=== PATIENT | female | born 1935 | race Caucasian/White ===

== ENCOUNTER 2024-01-08 09:54 | Outpatient (OUT) | payer MEDICARE, SELFPAY ==
--- NOTE | 2024-01-08 09:59 | VEIN_ITS ---
Patient Name: YUMIKO FERNANDEZ MR#: [id number] : 1935 Exam Date: 01/08/2024 Ordering Doctor: RACHELL LABOY RADIOLOGY REPORT PROCEDURE: [facility] FACILITY EST COMPREHENSIVE VEIN CENTER - OFFICE VISIT INITIAL COMPARISON: None. PROGRESS NOTES: [age] year old female who presents with a 20 year history of dilated bulging veins, burning sensation, heaviness, aching, leg swelling with new onset recurring ulcer. The patient's left leg symptoms are worse than the right. There has been a progression of symptoms over time. This increases with prolonged dependency. The patient describes an improvement with rest, elevation, exercise, support stockings, and medication. The patient denies any signs and symptoms to suggest arterial ischemia. The patient describes a family history varicose veins on maternal sign. The patient has drinking and smoking history of colon occasional alcohol consumption; former smoker. Patient has a past medical history significant for : Extensive, but non significantly contributory to current issue. The patient denies a history of deep venous thrombus or pulmonary embolus. See separate history and physical for medication list. No prior treatment for varicose or spider veins. Current use of compression stockings. After review of nurse notes, history and physical exam I discussed at length the pathophysiology of venous hypertension and possible treatments, therapies and strategies available. We discussed at length the importance of elevating the lower extremities above the level of the heart, increased physical activity and compression stocking use. Ultrasound venous reflux study performed today was discussed at length with the patient. The report demonstrates abnormally dilated and incompetent great saphenous veins bilaterally with numerous dilated branch saphenous varicosities. Abnormally dilated incompetent abattoir supervisor vein within distal medial calf bilaterally; this is within the region of the wound of the posterior left calf. PHYSICAL EXAM: The right leg demonstrates multiple large varicosities, numerous spider veins, no ulceration, mild edema, distal lower extremity skin discoloration. The left leg demonstrates several varicosities, numerous spider veins, posterior calf nonhealing ulceration, mild edema, distal lower extremity skin discoloration. Both thighs, legs and feet were symmetrically warm to the touch. Good posterior tibial and dorsalis pedis pulses were present bilaterally. VEIN/[facility] Facility EST Comprehensive IMPRESSION: 1. Bilateral lower extremity venous insufficiency 2. Bilateral lower extremity varicose veins 3. Mild bilateral lower extremity subcutaneous edema 4. No flow significant arterial disease 5. CEAP: C6 EC, AD, [place] PLAN: 1. Continued use of compression stockings 2. Elevated legs and increased physical activity symptomatic relief 3. Endovenous laser ablation of left great saphenous vein, right great saphenous vein, distal left lower extremity abattoir supervisor vein. 4. Microfoam chemical ablation of incompetent branch saphenous varicosities bilaterally. 5. Sclerotherapy of reticular and spider veins as needed. Nurse notes, history and physical were reviewed and confirmed, see attached forms. The nurse was present throughout the physical exam and consultation Dictated by: Romeo Pabon M.D. on 01/08/2024 at 11:52 Approved by: Romeo Pabon M.D. on 01/08/2024 at 11:59
--- NOTE | 2024-01-08 10:12 | VEIN_ITS ---
Patient Name: YUMIKO FERNANDEZ MR#: [id number] : 1935 Exam Date: 01/08/2024 Ordering Doctor: RACHELL LABOY RADIOLOGY REPORT PROCEDURE: VC EXT VENOUS REFLUX MARIVEL LMTD COMPARISON: None. INDICATIONS: Pain due to varicose veins of bilateral legs I83.813 TECHNIQUE: Duplex imaging of the lower extremity to assess the deep and superficial venous system for the presence of deep or superficial venous incompetence and to document the location and severity of disease. The study includes evaluation of the great saphenous vein (GSV), anterior accessory saphenous vein (AASV) and small saphenous vein (SSV). Patient scanned in reverse Trendelenburg and standing. FINDINGS: RIGHT LOWER EXTREMITY: Saphenofemoral Junction Reflux: Yes 9.7mm 3.4 sec GSV: Diam (mm) Reflux/ Time (sec) Proximal Thigh 6.7 Yes 3.4 Mid Thigh 7.7 Yes 3.7 Distal Thigh 6.4 Yes 3.6 Prox Calf 6.6 Yes 3.4 Mid Calf 4.9 Yes 2.1 Saphenopopliteal Junction Reflux: 1.9mm No SSV: Proximal Calf 2.2 Yes 0.7 Mid Calf 2.0 No AASV: Proximal Thigh 4.5 No Mid Thigh 2.3 No Distal Thigh Thrombi: No acute or chronic thrombus visualized Compressibility: Normal Flow: Normal Preforator: Dist/med calf 5.6mm with 1.2s reflux. Tech Note: Incompetent GSV. Patent varicose vein dist/med calf 5.6mm with 1.2s reflux. Patent varicose vein mid/med calf 4.6mm with 0.7s reflux. Patent varicose vein dist/med thigh 9.9mm with 1.4s reflux. Patent varicose vein mid/med thigh 6.5mm with 2.5s reflux. LEFT LOWER EXTREMITY: Saphenofemoral Junction Reflux: Yes 8.1 mm 2.4 sec GSV: Diam (mm) Reflux/Time (sec) Proximal Thigh 6.3 Yes 2.0 Mid Thigh 4.0 Yes 1.6 Distal Thigh 4.4 Yes 2.0 Prox Calf 4.9 Yes 1.2 Mid Calf 2.9 No Saphenopopliteal Junction Relux: 1.9 mm Yes 0.6 SSV: Proximal Calf 1.3 No Mid Calf 1.2 No AASV: Proximal Thigh Mid Thigh Distal Thigh Thrombi: No acute or chronic thrombus visualized Compressibility: Normal Flow: Normal Poultry Boner: Dist/med calf 6.3mm with 1.0s reflux. Tech Note: Incompetent GSV. Gastro veins are dialated and demonstrate slow flow throughout. No patent varicose veins visualized. CONCLUSION: 1. Abnormally dilated and incompetent great saphenous veins bilaterally. 2. Multiple dilated and incompetent branch saphenous varicosities bilaterally. 3. Abnormally dilated and incompetent music store manager veins bilaterally. Dictated by: Romeo Pabon M.D. on 01/08/2024 at 11:29 Approved by: Romeo Pabon M.D. on 01/08/2024 at 11:38
== END 2024-01-08 09:55 | disposition home or self-care (01) ==
PROVIDERS: PCP Nurse Practitioner Adult Health; Visit Provider Nurse Practitioner Adult Health
DX: I83.813 Varicose veins of bilateral lower extremities with pain (principal)
CPT/HCPCS: 93970; G0463

== ENCOUNTER 2024-01-15 13:40 | Outpatient (OUT) | payer MEDICARE, SELFPAY ==
[2024-01-15 14:05] LABS: Estimated GFR (African America >60 (>=60); Estimated GFR (Non-African Ame 54 (>=60)
== END 2024-01-15 13:41 | disposition home or self-care (01) ==
LOC: LAB 13:40
PROVIDERS: PCP Radiology Diagnostic Radiology; Visit Provider Radiology Diagnostic Radiology
DX: I70.223 Atherosclerosis of native arteries of extremities with rest pain, bilateral legs (principal)
CPT/HCPCS: 36415; 82565

== ENCOUNTER 2024-01-20 13:27 | Outpatient (OUT) | payer MEDICARE, SELFPAY ==
--- NOTE | 2024-01-20 13:32 | CT_ITS ---
[address] [address] Patient Name: YUMIKO FERNANDEZ MRN: [id number] date: 1935 Sex: F Assigned Patient Location: CT Current Patient Location: Accession/Order Number: [id number] Exam Date: 01/20/2024 13:38 Report Date: 01/21/2024 05:48 At the request of: ARIELLA FLETCHER Procedure: CT angio abd aorta runoff EXAMINATION: CT angio abd aorta runoff HISTORY: Atherosclerosis Of [place] Arteries Of Extremities With Pain ; May Thurner syndrome? COMPARISON: CT chest 05/28/2022 TECHNIQUE: After obtaining the patient's consent, CT images of the abdomen, pelvis, and lower extremities were obtained without and with non-ionic intravenous contrast material. Multi-planar reformatted/3-D images were created to optimize visualization of vascular anatomy. Dose reduction techniques were achieved by using automated exposure control and/or adjustment of mA and/or kV according to patient size and/or use of iterative reconstruction technique. FINDINGS: AORTA: Moderate atherosclerotic disease of aorta and major branches. No dissection or aneurysm. ILIAC: Mild-moderate atherosclerotic disease of common iliac arteries, with relative sparing of external iliac arteries. RIGHT LEG: No compression or appreciable narrowing of iliac veins. Mild atherosclerotic disease of common femoral artery through calf arteries with scattered mild plaque. LEFT LEG: No compression or appreciable narrowing of the iliac veins. Mild atherosclerotic disease of common femoral artery through calf arteries with scattered mild plaque. LUNG BASES: Enlarged right atrium at least 11.0 cm in diameter. LIVER: No enlargement, atrophy, abnormal density, or significant focal lesion. BILIARY: No visible dilatation or calcification. PANCREAS: No lesion, fluid collection, ductal dilatation, or atrophy. SPLEEN: No enlargement or focal lesion. ADRENALS: No mass or enlargement. KIDNEYS: No mass, obstruction, or calcification. BOWEL/MESENTERY: No visible mass, obstruction, or bowel wall thickening. RETROPERITONEUM: No mass or adenopathy. PELVIC NODES: No adenopathy. URINARY BLADDER: No visible focal wall thickening, lesion, or calculus. PELVIC ORGANS: No visible mass. Pelvic organs appropriate for patient age. ABDOMINAL WALL: No mass or hernia. BONES: Marked degenerative disc disease L3-L4 through L5-S1. No bony lesion or fracture. OTHER: CT/CT angio abd aorta runoff IMPRESSION: 1. Moderate atherosclerotic disease of aorta and abdominal branches. 2. Mild atherosclerotic disease of lower extremities bilaterally. No occlusion or significant narrowing. 3. No compression or appreciable narrowing of the iliac veins bilaterally to suggest May Thurner syndrome. 4. Cardiomegaly with marked enlargement of right atrium. Electronically authenticated by: ARIELLA FLETCHER Date: 01/21/2024 05:48
== END 2024-01-20 13:28 | disposition home or self-care (01) ==
LOC: CT 13:27
PROVIDERS: PCP Radiology Diagnostic Radiology; Visit Provider Radiology Diagnostic Radiology
DX: I70.223 Atherosclerosis of native arteries of extremities with rest pain, bilateral legs (principal); I51.7 Cardiomegaly
CPT/HCPCS: 75635; Q9967

== ENCOUNTER 2024-01-28 12:58 | Outpatient (OUT) | payer MEDICARE, SELFPAY ==
--- NOTE | 2024-01-28 13:01 | VEIN_ITS ---
[address] [address] Patient Name: YUMIKO FERNANDEZ MRN: [id number] date: 1935 Sex: F Assigned Patient Location: Current Patient Location: Accession/Order Number: [id number] Exam Date: 01/28/2024 13:05 Report Date: 01/28/2024 14:38 At the request of: JONAS GOODWIN Procedure: VC Endovenous Ablation 1VeinLT EXAMINATION: VC Endovenous Ablation 1Vein left great saphenous vein HISTORY: I83.813 Painful Varicose veins COMPARISON: No relevant comparison available. TECHNIQUE: The risks and benefits of the procedure had been previously discussed, and were rediscussed at length. Informed written consent was obtained. Dalila Peterson and Cecilio Mendoza assisted. Time out procedure was performed. The left lower extremity was prepared and draped in the usual sterile fashion to allow knee flexion in the sterile field. Duplex ultrasound probe was draped in a sterile cover, sterile transmission gel was used. Venous mapping was performed with the areas of dilation and large tributaries marked. The total length was 45 cm from the entry mid lower leg to 3 cm below the saphenofemoral junction. The diameter of the greater saphenous vein ranged from 4-7 mm. A 30 gauge needle and 1% buffered lidocaine was used to anesthetize the entry site. A 4 mm incision was made with a scalpel and the saphenous vein was entered percutaneously under direct ultrasound guidance with a micropuncture set, a single stick was successful in gaining access. A micro-guide wire was inserted and the needle removed. A micro-set including a dilator was inserted over the microwire and the needle and dilator were removed. A 0.018 guide wire was inserted through the micro-set and threaded through the saphenous vein to the saphenofemoral junction. The dilator was removed and an introducer sheath was inserted over the wire until the end of the sheath entered the saphenofemoral junction. The dilator and wire were removed and the 600 micron fiber was introduced and placed and positioned so that it extended beyond the sheath and was 3 cm peripheral to the saphenofemoral femoral junction. Final position of the fiber was determined by ultrasound guidance and duplex imaging. Tumescent anesthetic was delivered by ultrasound guidance. 275 cc of fluid was delivered along the entire course of the saphenous vein. The solution consisted of 1000 cc of normal saline with 40 mL of 1% lidocaine and 20 mL of sodium bicarbonate. A final positioning check was made. The energy source was turned on by means of the foot pedal and the fiber and sheath were withdrawn. The total number of Joules delivered was 2320. The laser was active for 290 seconds under continuous pulse, average laser use of 8 J. Laser start time 2:01 PM 01/28/2024 . Laser stop time 2:06 PM 01/28/2024 . A duplex ultrasound revealed compressibility and flow at the saphenofemoral junction immediately after the procedure. Hemostasis at the access site was achieved. The skin incision of the saphenous vein was closed with a 4 x 4. A compression stocking was applied. Postop instructions were given. A follow up appointment was recommended and scheduled. The patient tolerated the procedure well and was discharged in good condition . VEIN/VC Endovenous Ablation 1VeinLT IMPRESSION: Technically successful endovenous laser ablation of the left great saphenous vein Electronically authenticated by: JONAS GOODWIN Date: 01/28/2024 14:38
[2024-01-28] MEDS: LIDOCAINE HCL 1% 100 MG/10 ML MDV INJ (13:02)
[2024-01-28] MEDS: 0.9 % SODIUM CHLORIDE 500 ML, LIDOCAINE HCL 20 ML, SODIUM BICARBONATE 10 MEQ INJ (13:03)
== END 2024-01-28 12:59 | disposition home or self-care (01) ==
LOC: VC 12:58
PROVIDERS: PCP Radiology Diagnostic Radiology; Visit Provider Radiology Diagnostic Radiology
DX: I83.813 Varicose veins of bilateral lower extremities with pain (principal)
CPT/HCPCS: 36478

== ENCOUNTER 2024-02-03 14:17 | Outpatient (OUT) | payer MEDICARE, SELFPAY ==
--- NOTE | 2024-02-03 14:21 | VEIN_ITS ---
Patient Name: YUMIKO FERNANDEZ MR#: [id number] : 1935 Exam Date: 02/03/2024 Ordering Doctor: DR JONAS GOODWIN M.D. RADIOLOGY REPORT PROCEDURE: FACILITY EST LMTD VEIN CENTER - OFFICE VISIT FOLLOW UP COMPARISON: None. PROGRESS NOTES: The patient reports improvement in leg symptoms. There has been interval reduction in varicosities. The patient has followed our recommendations to walk 20-30 minutes once or twice per day since the procedure. Physical exam demonstrates decrease in varicosities of the leg. Persistent varicose veins are identified along the legs bilaterally. Persistent wound lower left leg. Review of the ultrasound performed the same day demonstrates occlusive thrombus extending throughout the treated vein(s), see separate report, consistent with a successful ablation. No thrombus extending into or beyond the saphenofemoral junction. The patient expressed a desire to proceed with treatment of remaining incompetent varicosities. The patient was informed that treatment was a process and would require several procedures/sessions. VEIN/[facility] EST TD IMPRESSION: 1. Successful ablation of the left great saphenous vein(s). 2. Persistent varicose veins and lower extremity symptoms. PLAN: Endovenous laser ablation of lower left leg incompetent and abnormally dilated network architect vein near nonhealing wound. Nurse notes, history and physical were reviewed and confirmed, see attached forms. The nurse was present throughout the physical exam and consultation Dictated by: Romeo Pabon M.D. on 02/03/2024 at 15:29 Approved by: Romeo Pabon M.D. on 02/03/2024 at 15:30
--- NOTE | 2024-02-03 14:21 | VEIN_ITS ---
Patient Name: YUMIKO FERNANDEZ MR#: [id number] : 1935 Exam Date: 02/03/2024 Ordering Doctor: DR JONAS GOODWIN M.D. RADIOLOGY REPORT PROCEDURE: VC EXT VENOUS LT LIMITED COMPARISON: None. INDICATIONS: Phlebitis of superficial veins of lt lower extremity I80.02 TECHNIQUE: Lower extremity higgins scale and Duplex Doppler evaluation of the deep venous system from the inguinal ligament through the calf veins. FINDINGS: REGION: Left lower extremity. THROMBI: Negative for DVT. Heat induced thrombus visualized 1.9 cm from the SFJ. The heat induced thrombus extends from groin to mid calf. COMPRESSIBILITY: Non-compressible segments corresponding to thrombus FLOW: Areas of no flow corresponding to thrombus OTHER: CONCLUSION: 1. Successful post ablation occlusion of left great saphenous vein. Dictated by: Romeo Pabon M.D. on 02/03/2024 at 15:28 Approved by: Romeo Pabon M.D. on 02/03/2024 at 15:29
== END 2024-02-03 14:18 | disposition home or self-care (01) ==
LOC: VC 14:19
PROVIDERS: PCP Radiology Diagnostic Radiology; Visit Provider Radiology Diagnostic Radiology
DX: I80.02 Phlebitis and thrombophlebitis of superficial vessels of left lower extremity (principal)
CPT/HCPCS: 93971; G0463

== ENCOUNTER 2024-02-17 13:13 | Outpatient (OUT) | payer MEDICARE, SELFPAY ==
[2024-02-17] MEDS: LIDOCAINE HCL 20 ML, SODIUM BICARBONATE 2 MEQ INJ (13:16)
--- NOTE | 2024-02-17 13:17 | VEIN_ITS ---
[address] [address] Patient Name: YUMIKO FERNANDEZ MRN: [id number] date: 1935 Sex: F Assigned Patient Location: Current Patient Location: Accession/Order Number: [id number] Exam Date: 02/17/2024 13:18 Report Date: 02/17/2024 15:19 At the request of: JONAS GOODWIN Procedure: VC Endovenous Perf Ablation LT EXAMINATION: VC Endovenous Perf Ablation LT COMPARISON: INDICATIONS: I83.813 Painful varicose veins OPERATIVE REPORT: Diagnosis: Superficial venous reflux, incompetent perforating veins Procedure: Endovenous laser ablation of the left washroom cleaner(s) Procedure: The patient was positioned supine on the table and the leg was prepped and draped to allow for visualization during venous access. A sterile cover was draped over a 16 mhz ultrasound probe. Venous mapping was performed prior to the procedure noting location and size of vessel(s). Special Education Resource Teacher vein 1: Medial lower leg. The diameter of the vein ranged from 6.3 mm's below the muscular fascia to 6.3 mm's at the entry point. Using a 30 gauge needle the entry site was anesthetized with 1 cc of 1% buffered lidocaine. Access was gained percutaneously, with a 21-gauge needle, into the washroom cleaner vein under ultrasound guidance. The needle was advanced into the desired position and the pre-measured 400-micron fiber was then inserted into the needle and locked in place. The position of the fiber was imaged with ultrasound guidance. The fiber tip was visualized to be greater than 10 mm from the deep vessel. An anesthetic solution of 4 cc 1% buffered lidocaine was delivered along the course of the vein under ultrasound guidance using a syringe. A final positioning check of the laser fiber tip was performed. The laser was activated by means of a foot-pedal and the fiber and needle were withdrawn together in accordance to the desired joules per treatment area/spot weld. 3 areas/spot welds were performed, and the total number of joules delivered was 178. The total time of energy delivery was 22 seconds. A duplex ultrasound revealed compressibility and flow of the deep system immediately after the procedure. Hemostasis of the access site was achieved and dressed. A 20-30 mm compression stocking over coban was placed on the treated leg. Post-Op instructions were given, and a follow-up appointment was made. CONCLUSION: 1. Technically successful endovenous laser ablation of medial lower left leg single washroom cleaner vein Electronically authenticated by: ARIELLA FLETCHER Date: 02/17/2024 15:19
== END 2024-02-17 13:14 | disposition home or self-care (01) ==
LOC: VC 13:13
PROVIDERS: PCP Radiology Diagnostic Radiology; Visit Provider Radiology Diagnostic Radiology
DX: I83.813 Varicose veins of bilateral lower extremities with pain (principal)
CPT/HCPCS: 36478

== ENCOUNTER 2024-03-02 13:03 | Outpatient (OUT) | payer MEDICARE, SELFPAY ==
--- NOTE | 2024-03-02 13:05 | VEIN_ITS ---
Patient Name: YUMIKO FERNANDEZ MR#: [id number] : 1935 Exam Date: 03/02/2024 Ordering Doctor: DR JONAS GOODWIN M.D. RADIOLOGY REPORT PROCEDURE: FACILITY EST LMTD VEIN CENTER - OFFICE VISIT FOLLOW UP COMPARISON: VC EXT VENOUS LT LIMITED, 03/02/2024. VC FACILITY EST LMTD, 02/03/2024. PROGRESS NOTES: The patient reports improvement in leg symptoms. There has been interval reduction in varicosities. The patient has followed our recommendations to walk 20-30 minutes once or twice per day since the procedure. Physical exam demonstrates decrease in varicosities of the leg. Persistent varicosities are identified along the legs bilaterally. Review of the ultrasound performed the same day demonstrates occlusive thrombus extending throughout the treated vein(s), see separate report, consistent with a successful ablation. No thrombus extending into or beyond the saphenofemoral junction. The patient expressed a desire to proceed with treatment of remaining incompetent varicosities. The patient was informed that treatment was a process and would require several procedures/sessions. VEIN/[facility] EST TD IMPRESSION: 1. Successful ablation of the treated lower left leg product support technician vein. 2. Persistent varicose veins and lower extremity symptoms. PLAN: Endovenous laser ablation of right great saphenous vein. Nurse notes, history and physical were reviewed and confirmed, see attached forms. The nurse was present throughout the physical exam and consultation Dictated by: Romeo Pabon M.D. on 03/02/2024 at 13:57 Approved by: Romeo Pabon M.D. on 03/02/2024 at 13:59
--- NOTE | 2024-03-02 13:05 | VEIN_ITS ---
Patient Name: YUMIKO FERNANDEZ MR#: [id number] : 1935 Exam Date: 03/02/2024 Ordering Doctor: DR JONAS GOODWIN M.D. RADIOLOGY REPORT PROCEDURE: VC EXT VENOUS LT LIMITED COMPARISON: VC EXT VENOUS LT LIMITED, 02/03/2024. INDICATIONS: I80.02 Phlebitis of superficial veins of lt lower extremity TECHNIQUE: Lower extremity higgins scale and Duplex Doppler evaluation of the deep venous system from the inguinal ligament through the calf veins. FINDINGS: REGION: Right lower extremity. THROMBI: Negative for DVT. Heat induced thrombus visualized at mid/medial referral coordinator calf. COMPRESSIBILITY: Non-compressible segments corresponding to thrombus FLOW: Areas of no flow corresponding to thrombus OTHER: CONCLUSION: 1. Successful post ablation occlusion of lower left leg referral coordinator vein. Dictated by: Romeo Pabon M.D. on 03/02/2024 at 13:57 Approved by: Romeo Pabon M.D. on 03/02/2024 at 13:57
== END 2024-03-02 13:04 | disposition home or self-care (01) ==
LOC: VC 13:03
PROVIDERS: PCP Radiology Diagnostic Radiology; Visit Provider Radiology Diagnostic Radiology
DX: I80.02 Phlebitis and thrombophlebitis of superficial vessels of left lower extremity (principal)
CPT/HCPCS: 93971; G0463

== ENCOUNTER 2024-03-17 11:48 | Outpatient (OUT) | payer MEDICARE, SELFPAY ==
[2024-03-17 10:11] VITALS: BMI 22.8
--- NOTE | 2024-03-17 10:11 | VEINCLINIC_ITS ---
Vital Signs 03/17/24 10:11 Height 5 ft 6 in Weight 63.957 kg BMI 22.8 Varicose Veins Patient in this day for EVLT of right leg GSV. thigh: bilateral, knee: bilateral, calf: bilateral, ankle: bilateral and croft: bilateral aching, burning and dull 4 6 months Worsened in recent months: Yes standing, sitting and walking analgesics, bed rest, elevating extremities, compression stockings and exercise Reports erythema, edema and other (non healing stasis ulceration (left mid calf)) History of lower extremity trauma: No Superficial thrombophlebitis: No Family history of varicose veins: no Has patient had previous lower extremity venous surgery: No Patient has previously received the following treatment(s) for lower extremity varicose veins: Reports none Does patient have a history of : yes Does patient intend to have future pregnancies: no Has patient had lower extremity venous scan with relux testing: Yes Support hose used: Yes (x5 years ) Problems walking or doing physical activity: Yes How does it affect you: non healing wound to mid posteriorm calf Do you walk much: Yes Do you stand much: Yes Medication compliance: good Review of Systems ROS Narrative IRomeo MD personally performed the services described in this documentation, as scribed by Aubrie Dang RVT, RDMS in my presence and it is both accurate and complete. Aubrie Muñoz RVT, RDMS, am scribing for, and in the presence of, Dr. Romeo Pabon and in the presence of the patient. Status of ROS 10 or more systems reviewed and unremark able except as noted in history and below Cardiovascular Reports: edema, swelling of feet/ankles and leg pain with exertion Musculoskeletal Reports: extremity pain, extremity swelling, limited range of motion, joint swelling, muscle cramps and muscle weakness Integumentary/Breast Reports: itching, redness, skin pain, skin tenderness, skin swelling, new lesion, non-healing lesion and changes in skin color Neurological Reports: numbness in extremities and weakness in extremities [facility] Medical History (Updated 03/17/24 @ 14:26 by Romeo Pabon MD) Chapped lips ?K13.0 - Diseases of lips (ICD-10) Cystitis with hematuria ?N30.91 - Cystitis, unspecified with hematuria (ICD-10) Chronic venous hypertension with ulcer ?I87.319 - Chronic venous hypertension (idiopathic) with ulcer of unspecified lower extremity (ICD-10) ?L97.909 - Non-pressure chronic ulcer of unspecified part of unspecified lower leg with unspecified severity (ICD-10) 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, stage III ?I13.0 - Hypertensive heart and chronic kidney disease with heart failure and stage 1 through stage 4 chronic kidney disease, or unspecified chronic kidney disease (ICD-10) ?N18.30 - Chronic kidney disease, stage 3 unspecified (ICD-10) Chronic atrial fibrillation ?I48.20 - Chronic atrial fibrillation, unspecified (ICD-10) ASHD (arteriosclerotic heart disease) ?I25.10 - Atherosclerotic heart disease of [place] coronary artery without angina pectoris (ICD-10) Hypokalemia ?E87.6 - Hypokalemia (ICD-10) Chest wall pain following surgery ?R07.89 - Other chest pain (ICD-10) ?G89.18 - Other acute postprocedural pain (ICD-10) Pulmonary nodule, left ?R91.1 - Solitary pulmonary nodule (ICD-10) At low risk for fall ?Z91.81 - History of falling (ICD-10) Menopause ?Z78.0 - Asymptomatic menopausal state (ICD-10) Vitamin D deficiency ?E55.9 - Vitamin D deficiency, unspecified (ICD-10) Hyperlipidemia ?E78.5 - Hyperlipidemia, unspecified (ICD-10) LISA (obstructive sleep apnea) ?G47.33 - Obstructive sleep apnea (adult) (pediatric) (ICD-10) Depression screening ?Z13.31 - Encounter for screening for depression (ICD-10) Acute on chronic diastolic (congestive) heart failure ?I50.33 - Acute on chronic diastolic (congestive) heart failure (ICD-10) Primary insomnia ?F51.01 - Primary insomnia (ICD-10) Pain due to varicose veins of both lower extremities ?I83.813 - Varicose veins of bilateral lower extremities with pain (ICD-10) IGLESIAS (dyspnea on exertion) ?R06.09 - Other forms of dyspnea (ICD-10) Gastroesophageal reflux disease with esophagitis ?K21.00 - Gastro-esophageal reflux disease with esophagitis, without bleeding (ICD-10) Stenosis of prosthetic mitral valve ?T82.857A - Stenosis of other cardiac prosthetic devices, implants and grafts, initial encounter (ICD-10) Elevated TSH ?R79.89 - Other specified abnormal findings of blood chemistry (ICD-10) TRAVIS (generalized anxiety disorder) ?F41.1 - Generalized anxiety disorder (ICD-10) Chronic bronchitis ?J42 - Unspecified chronic bronchitis (ICD-10) Decreased diffusion capacity ?R94.2 - Abnormal results of pulmonary function studies (ICD-10) Mitral valve stenosis ?I05.0 - Rheumatic mitral stenosis (ICD-10) Pulmonary hypertension ?I27.20 - Pulmonary hypertension, unspecified (ICD-10) Fatigue ?R53.83 - Other fatigue (ICD-10) Nicotine dependence ?F17.200 - Nicotine dependence, unspecified, uncomplicated (ICD-10) Pacemaker ?Z95.0 - Presence of cardiac pacemaker (ICD-10) COPD (chronic obstructive pulmonary disease) ?J44.9 - Chronic obstructive pulmonary disease, unspecified (ICD-10) Urinary incontinence due to urethral sphincter incompetence ?N36.42 - Intrinsic sphincter deficiency (ISD) (ICD-10) ?R32 - Unspecified urinary incontinence (ICD-10) Bilateral tinnitus ?H93.13 - Tinnitus, bilateral (ICD-10) Nonrheumatic mitral valve regurgitation ?I34.0 - Nonrheumatic mitral (valve) insufficiency (ICD-10) Hypertension ?I10 - Essential (primary) hypertension (ICD-10) Surgical History (Updated 03/17/24 @ 13:49 by Aubrie Dang) S/P TAVR (transcatheter aortic valve replacement) ?Z95.2 - Presence of prosthetic heart valve (ICD-10) Hx of appendectomy ?Z90.49 - Acquired absence of other specified parts of digestive tract (ICD- 10) History of bladder suspension procedure ?Z98.890 - Other specified postprocedural states (ICD-10) ?Z87.448 - Personal history of other diseases of urinary system (ICD-10) History of colonoscopy ?Z98.890 - Other specified postprocedural states (ICD-10) History of dilation of urethra ?Z98.890 - Other specified postprocedural states (ICD-10) History of cystoscopy ?Z98.890 - Other specified postprocedural states (ICD-10) History of maze procedure ?Z98.890 - Other specified postprocedural states (ICD-10) Hx of CABG ?Z95.1 - Presence of aortocoronary bypass graft (ICD-10) History of mitral valve replacement ?Z95.2 - Presence of prosthetic heart valve (ICD-10) Family History (Updated 03/17/24 @ 13:51 by Aubrie Dang) Mother Family history of CHF (congestive heart failure) Pain due to varicose veins of both lower extremities Sister Pain due to varicose veins of both lower extremities Social History (Updated 03/17/24 @ 13:52 by Aubrie Dang) Within the past year, how often did you have a drink containing alcohol: 2-4 times a month Smoking status: Former smoker Non-prescribed substance use: denies use Meds Home Medications and Allergies Home Medications ?Medication ?Instructions ?Recorded ?Confirmed ?Type atorvastatin 20 mg tablet 20 mg PO DAILY 03/17/24 03/17/24 History bumetanide 2 mg tablet 1 mg PO DAILY 03/17/24 03/17/24 History clobetasol 0.05 % topical cream 1 applic topical DAILY 03/17/24 03/17/24 History famotidine 20 mg tablet 20 mg PO DAILY 03/17/24 03/17/24 History metoprolol tartrate 50 mg tablet 25 mg PO DAILY 03/17/24 03/17/24 History potassium chloride 10 mEq 10 meq PO DAILY 03/17/24 03/17/24 History tablet,extended release (Klor-Con) sulfasalazine 500 mg tablet 0.5 g PO DAILY 03/17/24 03/17/24 History warfarin 2 mg tablet (Jantoven) 1 mg PO QWEEK 03/17/24 03/17/24 History zolpidem 10 mg tablet (Ambien) 03/17/24 History Allergies Allergy/AdvReac Type Severity Reaction Status Date / Time iodine Allergy Unknown Verified 02/13/24 14:48 Exam Narrative Exam Narrative: IRomeo MD personally performed the services described in this documentation, as scribed by Aubrie Dang RVT, RDMS in my presence and it is both accurate and complete. I, Aubrie Dang RVT, RDMS, am scribing for, and in the presence of, Dr. Romeo Pabon and in the presence of the patient. Constitutional Documenting provider has reviewed patient's vital signs: yes Common normals: oriented x3 Lymph Lymphatic: no lymphedema noted Cardio Common normals: regular rate Rate: regular rate Peripheral pulses: posterior tibial pulses present and dorsalis pedis pulses present Extremity Common normals: normal capillary refill General: calf tenderness and edema Right lower extremity: upper leg and lower leg Left lower extremity: upper leg and lower leg Neuro Common normals: oriented x3 Assessment and Plan Assessment and Plan (1) Phlebitis and thrombophlebitis of superficial vessels of right lower extremity: Plan Plan of care: Risks and benefits of the procedure were discussed at length and informed written consent was obtained.? Time-out completed for verification of correct patient, procedure and site.? Staff present during time-out: ? Romeo Pabon MD, Aubrie Dang RDMS,RVT and Dalila Peterson RDMS Time Out Time__1224 Patient prepped and procedure performed in usual sterile fashion. Risk of injury related to use of Diode laser and/or laser devices? __ME___ ? Serial number of laser used :? [id number] Control panel self test performed, electrical cords in good condition, floor is dry, basin of water available, fire extinguisher in close proximity_EM__ Polycarbonate goggles available and Laser warning signs outside of doors___ME___ Eye protection provided to patient and staff in room_ME___ Use of laser retardant drapes and dull blackened instruments as directed__ME___ Use of nonflammable prep solutions and use of saline soaked sponges to protect tissues as indicated _ME___ Length ___63 cm Laser operated by ____Dr. Pabon Physician verbal confirmation laser locked in place__ME__ Laser start time (date and time) ____03/17/2024 at 1239 Laser stop time(date and time) __03/17/2024 at 1247 Lee _8.0___ Average laser use ___3640____Joules Average laser use___455 seconds Pulse continuous ___ME_? Pulse intermittent ___ Amount of Tumescent used _250 Evaluated patient for signs and symptoms of electrical injury __ME___ ? Skin clear at insertion site __ME__ Patient tolerated procedure well.? Right leg Coban dressing applied to access site.? Applied Right thigh high leg compression stocking. Will return on 03/23/2024 at 2:30 for Right leg limited venous ultrasound and exam. I, Romeo Pabon MD personally performed the services described in this documentation, as scribed by Aubrie Dang RVT, RDMS in my presence and it is both accurate and complete. IAubrie RVT, RDMS, am scribing for, and in the presence of, Dr. Romeo Pabon and in the presence of the patient. Procedures Procedure Note Date of procedure: 03/17/24 Pre-op diagnosis: I83.813 Post-op diagnosis: same as pre-op Procedure: EVLT of right leg GSV Surgeon: Romeo Pabon
--- NOTE | 2024-03-17 11:53 | VEIN_ITS ---
The [address] [address] Patient Name: YUMIKO FERNANDEZ MRN: [id number] date: 1935 Sex: F Assigned Patient Location: Current Patient Location: Accession/Order Number: [id number] Exam Date: 03/17/2024 11:53 Report Date: 03/17/2024 14:39 At the request of: JONAS GOODWIN Procedure: VC Endovenous Ablation 1VeinRT EXAMINATION: VC Endovenous Ablation 1VeinRT HISTORY: I83.813 Bilateral painful varicose veins The risks and benefits of the procedure had been previously discussed, and were rediscussed at length. Informed written consent was obtained. Dalila Ackerman RDMS and Aubrie Dang RDMS, RVT assisted. Time out procedure was performed. The right lower extremity was prepared and draped in the usual sterile fashion to allow knee flexion in the sterile field. Duplex ultrasound probe was draped in a sterile cover, sterile transmission gel was used. Venous mapping was performed with the areas of dilation and large tributaries marked. The total length was 63 cm from the entry 3 cm above the ankle to 3 cm below the Saphenofemoral junction. The diameter of the right great saphenous vein ranged from 7.7 mm. A 30 gauge needle and 1% buffered lidocaine was used to anesthetize the entry site. A 4 mm incision was made with a scalpel and the saphenous vein was entered percutaneously under direct ultrasound guidance with a micropuncture set, a single stick was successful in gaining access. A micro-guide wire was inserted and the needle removed. A micro-set including a dilator was inserted over the microwire and the needle and dilator were removed. A guide wire was inserted through the micro-set and guided through the saphenous vein to the saphenofemoral junction. The dilator was removed and an introducer sheath was inserted over the wire until the end of the sheath entered the saphenofemoral junction. The dilator and wire were removed and the 600 micron fiber was introduced and placed and positioned so that it extended beyond the sheath and was 3 cm distal to the saphenofemoral or saphenopopliteal junction. Final position of the fiber was determined by ultrasound guidance and duplex imaging. Tumescent anesthetic was delivered by ultrasound guidance. 250 cc of fluid was delivered along the entire course of the saphenous vein. The solution consisted of 1000 cc of normal saline with 40 mL of 1% lidocaine and 20 mL of sodium bicarbonate. A final positioning check was made. The energy source was turned on by means of the foot pedal and the fiber and sheath were withdrawn. The total number of Joules delivered was 3640. The laser was active for 455 seconds under continuous pulse, average laser use of 8 J. Laser start time: 12:39 PM Laser stop time: 12:47 PM Date: 03/17/2024. A duplex ultrasound revealed compressibility and flow at the saphenofemoral junction immediately after the procedure. Hemostasis at the access site was achieved. The skin incision of the saphenous vein was closed with a 4 x 4. A compression stocking was applied. Postop instructions were given. A follow up appointment was recommended and scheduled. The patient tolerated the procedure well. Electronically authenticated by: ARIELLA FLETCHER Date: 03/17/2024 14:39
[2024-03-17] MEDS: 0.9 % SODIUM CHLORIDE 500 ML, LIDOCAINE HCL 20 ML, SODIUM BICARBONATE 10 MEQ INJ (12:49)
[2024-03-17] MEDS: LIDOCAINE HCL 1% 100 MG/10 ML MDV INJ (12:50)
--- NOTE | 2024-03-17 14:10 | W.VEIN ---
Discharge Plan Discharge Disposition: Home, Self-Care Discharge Medications: No Action bumetanide 2 mg tablet 1 mg PO DAILY famotidine 20 mg tablet 20 mg PO DAILY warfarin [Jantoven] 2 mg tablet 1 mg PO QWEEK atorvastatin 20 mg tablet 20 mg PO DAILY metoprolol tartrate 50 mg tablet 25 mg PO DAILY potassium chloride [Klor-Con 10] 10 mEq tablet extended release 10 meq PO DAILY zolpidem [Ambien] 10 mg tablet clobetasol 0.05 % cream 1 applic topical DAILY sulfasalazine 500 mg tablet 0.5 g PO DAILY Rx Instructions: give with food (meal/snack) Outpatient Diagnostics: VC EXT Venous RT LMTD (Routine) Timeframe: 2 Weeks Facility: [facility] - Location[facility] Ordered By: Romeo Pabon Follow Up Appointments: 03/23/2024 Patient Instructions: Endovenous Ablation (DC) Print Language: Togolese Discharge Date/Time: 03/17/24 14:14
== END 2024-03-17 14:14 | disposition home or self-care (01) ==
PROVIDERS: PCP Radiology Diagnostic Radiology; Visit Provider Radiology Diagnostic Radiology
DX: I83.813 Varicose veins of bilateral lower extremities with pain (principal)
CPT/HCPCS: 36478

== ENCOUNTER 2024-03-23 14:27 | Outpatient (OUT) | payer MEDICARE, SELFPAY ==
[2024-03-23 08:30] VITALS: BMI 22.4
--- NOTE | 2024-03-23 08:30 | V.VEINS.HP ---
Vital Signs 03/23/24 08:30 Height 5 ft 6 in Weight 63 kg BMI 22.4 Varicose Veins Patient in this day for follow up ultrasound post EVLT of right leg GSV. Emil Muñoz MD personally performed the services described in this documentation, as scribed by Aubrie Dang RVT, RDMS in my presence and it is both accurate and complete. Aubrie Muñoz RVT, RDMS, am scribing for, and in the presence of, Dr. Emil Sweeney and in the presence of the patient. thigh: bilateral, knee: bilateral, calf: bilateral, ankle: bilateral and croft: bilateral aching, burning and dull 4 6 months Worsened in recent months: Yes standing, sitting and walking analgesics, bed rest, elevating extremities, compression stockings and exercise Reports erythema, edema and other (non healing stasis ulceration (left mid calf)) History of lower extremity trauma: No Superficial thrombophlebitis: No Family history of varicose veins: no Has patient had previous lower extremity venous surgery: No Patient has previously received the following treatment(s) for lower extremity varicose veins: Reports none Does patient have a history of : yes Does patient intend to have future pregnancies: no Has patient had lower extremity venous scan with relux testing: Yes Support hose used: Yes (x5 years ) Problems walking or doing physical activity: Yes How does it affect you: non healing wound to mid posteriorm calf Do you walk much: Yes Do you stand much: Yes Medication compliance: good Review of Systems ROS Narrative Emil Muñoz MD personally performed the services described in this documentation, as scribed by Aubrie Dang RVT, RDMS in my presence and it is both accurate and complete. Aubrie Muñoz RVT, RDMS, am scribing for, and in the presence of, Dr. Emil Sweeney and in the presence of the patient. Status of ROS 10 or more systems reviewed and unremarkable except as noted in history and below Cardiovascular Reports: edema, swelling of feet/ankles and leg pain with exertion Musculoskeletal Reports: extremity pain, extremity swelling, limited range of motion, joint swelling, muscle cramps and muscle weakness Integumentary/Breast Reports: itching, redness, skin pain, skin tenderness, skin swelling, new lesion, non-healing lesion and changes in skin color Neurological Reports: numbness in extremities and weakness in extremities PFSH [facility] Medical History (Updated 03/23/24 @ 13:58 by Aubrie Dang) Varicose veins of bilateral lower extremities with pain ?I83.813 - Varicose veins of bilateral lower extremities with pain (ICD-10) Chapped lips ?K13.0 - Diseases of lips (ICD-10) Cystitis with hematuria ?N30.91 - Cystitis, unspecified with hematuria (ICD-10) Chronic venous hypertension with ulcer ?I87.319 - Chronic venous hypertension (idiopathic) with ulcer of unspecified lower extremity (ICD-10) ?L97.909 - Non-pressure chronic ulcer of unspecified part of unspecified lower leg with unspecified severity (ICD-10) 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, stage III ?I13.0 - Hypertensive heart and chronic kidney disease with heart failure and stage 1 through stage 4 chronic kidney disease, or unspecified chronic kidney disease (ICD-10) ?N18.30 - Chronic kidney disease, stage 3 unspecified (ICD-10) Chronic atrial fibrillation ?I48.20 - Chronic atrial fibrillation, unspecified (ICD-10) ASHD (arteriosclerotic heart disease) ?I25.10 - Atherosclerotic heart disease of lower [place] coronary artery without angina pectoris (ICD-10) Hypokalemia ?E87.6 - Hypokalemia (ICD-10) Chest wall pain following surgery ?R07.89 - Other chest pain (ICD-10) ?G89.18 - Other acute postprocedural pain (ICD-10) Pulmonary nodule, left ?R91.1 - Solitary pulmonary nodule (ICD-10) At low risk for fall ?Z91.81 - History of falling (ICD-10) Menopause ?Z78.0 - Asymptomatic menopausal state (ICD-10) Vitamin D deficiency ?E55.9 - Vitamin D deficiency, unspecified (ICD-10) Hyperlipidemia ?E78.5 - Hyperlipidemia, unspecified (ICD-10) LISA (obstructive sleep apnea) ?G47.33 - Obstructive sleep apnea (adult) (pediatric) (ICD-10) Depression screening ?Z13.31 - Encounter for screening for depression (ICD-10) Acute on chronic diastolic (congestive) heart failure ?I50.33 - Acute on chronic diastolic (congestive) heart failure (ICD-10) Primary insomnia ?F51.01 - Primary insomnia (ICD-10) Pain due to varicose veins of both lower extremities ?I83.813 - Varicose veins of bilateral lower extremities with pain (ICD-10) IGLESIAS (dyspnea on exertion) ?R06.09 - Other forms of dyspnea (ICD-10) Gastroesophageal reflux disease with esophagitis ?K21.00 - Gastro-esophageal reflux disease with esophagitis, without bleeding (ICD-10) Stenosis of prosthetic mitral valve ?T82.857A - Stenosis of other cardiac prosthetic devices, implants and grafts, initial encounter (ICD-10) Elevated TSH ?R79.89 - Other specified abnormal findings of blood chemistry (ICD-10) TRAVIS (generalized anxiety disorder) ?F41.1 - Generalized anxiety disorder (ICD-10) Chronic bronchitis ?J42 - Unspecified chronic bronchitis (ICD-10) Decreased diffusion capacity ?R94.2 - Abnormal results of pulmonary function studies (ICD-10) Mitral valve stenosis ?I05.0 - Rheumatic mitral stenosis (ICD-10) Pulmonary hypertension ?I27.20 - Pulmonary hypertension, unspecified (ICD-10) Fatigue ?R53.83 - Other fatigue (ICD-10) Nicotine dependence ?F17.200 - Nicotine dependence, unspecified, uncomplicated (ICD-10) Pacemaker ?Z95.0 - Presence of cardiac pacemaker (ICD-10) COPD (chronic obstructive pulmonary disease) ?J44.9 - Chronic obstructive pulmonary disease, unspecified (ICD-10) Urinary incontinence due to urethral sphincter incompetence ?N36.42 - Intrinsic sphincter deficiency (ISD) (ICD-10) ?R32 - Unspecified urinary incontinence (ICD-10) Bilateral tinnitus ?H93.13 - Tinnitus, bilateral (ICD-10) Nonrheumatic mitral valve regurgitation ?I34.0 - Nonrheumatic mitral (valve) insufficiency (ICD-10) Hypertension ?I10 - Essential (primary) hypertension (ICD-10) Surgical History (Updated 03/17/24 @ 13:49 by Aubrie Dang) S/P TAVR (transcatheter aortic valve replacement) ?Z95.2 - Presence of prosthetic heart valve (ICD-10) Hx of appendectomy ?Z90.49 - Acquired absence of other specified parts of digestive tract (ICD-10) History of bladder suspension procedure ?Z98.890 - Other specified postprocedural states (ICD-10) ?Z87.448 - Personal history of other diseases of urinary system (ICD-10) History of colonoscopy ?Z98.890 - Other specified postprocedural states (ICD-10) History of dilation of urethra ?Z98.890 - Other specified postprocedural states (ICD-10) History of cystoscopy ?Z98.890 - Other specified postprocedural states (ICD-10) History of maze procedure ?Z98.890 - Other specified postprocedural states (ICD-10) Hx of CABG ?Z95.1 - Presence of aortocoronary bypass graft (ICD-10) History of mitral valve replacement ?Z95.2 - Presence of prosthetic heart valve (ICD-10) Family History (Updated 03/17/24 @ 13:51 by Aubrie Dang) Mother Family history of CHF (congestive heart failure) Pain due to varicose veins of both lower extremities Sister Pain due to varicose veins of both lower extremities Social History (Updated 03/17/24 @ 13:52 by Aubrie Dang) Within the past year, how often did you have a drink containing alcohol: 2-4 times a month Smoking status: Former smoker Non-prescribed substance use: denies use Meds Home Medications and Allergies Home Medications ?Medication ?Instructions ?Recorded ?Confirmed ?Type atorvastatin 20 mg tablet 20 mg PO DAILY 03/17/24 03/17/24 History bumetanide 2 mg tablet 1 mg PO DAILY 03/17/24 03/17/24 History clobetasol 0.05 % topical cream 1 applic topical DAILY 03/17/24 03/17/24 History famotidine 20 mg tablet 20 mg PO DAILY 03/17/24 03/17/24 History metoprolol tartrate 50 mg tablet 25 mg PO DAILY 03/17/24 03/17/24 History potassium chloride 10 mEq 10 meq PO DAILY 03/17/24 03/17/24 History tablet,extended release (Klor-Con) sulfasalazine 500 mg tablet 0.5 g PO DAILY 03/17/24 03/17/24 History warfarin 2 mg tablet (Jantoven) 1 mg PO QWEEK 03/17/24 03/17/24 History zolpidem 10 mg tablet (Ambien) 03/17/24 History Allergies Allergy/AdvReac Type Severity Reaction Status Date / Time iodine Allergy Unknown Verified 02/13/24 14:48 Exam Narrative Exam Narrative: Emil Muñoz MD personally performed the services described in this documentation, as scribed by Aubrie Dang RVT, RDMS in my presence and it is both accurate and complete. Aubrie Muñoz RVT, RDMS, am scribing for, and in the presence of, Dr. Emil Sweeney and in the presence of the patient. Results Imaging Venous US: Radiologist's impression: Patient in today for follow up ultrasound of lower extremity following treatment of EVLT of right leg GSV completed on 03/17/24. The ultrasound demonstrates heat induced thrombus visualized 2.3cm from the SFJ. The heat induced thrombus extends from groin to distal calf. Emil Muñoz MD personally performed the services described in this documentation, as scribed by Aubrie Dang RVT, RDMS in my presence and it is both accurate and complete. Aubrie Muñoz RVT, RDMS am scribing for, and in the presence of, Dr. Emil Sweeney and in the presence of the patient. Assessment and Plan Assessment and Plan (1) Varicose veins of bilateral lower extremities with pain: Plan The plan is to Varithena/microfoam chemical ablation to the left leg. Emil Muñoz MD personally performed the services described in this documentation, as scribed by Aubrie Dang RVT, RDMS in my presence and it is both accurate and complete. Aubrie Muñoz RVT, RDMS am scribing for, and in the presence of, Dr. Emil Sweeney and in the presence of the patient.
--- NOTE | 2024-03-23 13:57 | P.DS_ITS ---
Discharge Plan Discharge Disposition: Home, Self-Care Outpatient Diagnostics: VC INJ Foam Sclerosant WUCurly FAMILY PRACTICE PHYSICIAN (Routine) Timeframe: 2 Weeks Facility: [facility] - Location: [facility] Ordered By: Emil Sweeney Follow Up Appointments: 04/01/2024 Print Language: Qatari
--- NOTE | 2024-03-23 13:57 | W.VEIN ---
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
--- NOTE | 2024-03-23 14:32 | VEIN_ITS ---
Patient Name: YUMIKO FERNANDEZ MR#: [id number] : 1935 Exam Date: 03/23/2024 Ordering Doctor: DR ARIELLA FLETCHER M.D. RADIOLOGY REPORT PROCEDURE: VC EXT VENOUS RT LMTD COMPARISON: None. INDICATIONS: I80.01 - Phlebitis and thrombophlebitis of superficial ve... TECHNIQUE: Lower extremity higgins scale and Duplex Doppler evaluation of the deep venous system from the inguinal ligament through the calf veins. FINDINGS: REGION: Right lower extremity. THROMBI: Negative for DVT. Heat induced thrombus visualized 2.3 cm from the SFJ. The heat induced thrombus extends from groin to distal calf. COMPRESSIBILITY: Non-compressible segments corresponding to thrombus FLOW: Areas of no flow corresponding to thrombus CONCLUSION: Post ablation occlusion of the right great saphenous vein with heat induced thrombus 2.3 cm from the saphenofemoral junction Dictated by: Emil Sweeney MD on 03/23/2024 at 15:04 Approved by: Emil Sweeney MD on 03/23/2024 at 15:05
--- NOTE | 2024-03-23 14:33 | VEIN_ITS ---
Patient Name: YUMIKO FERNANDEZ MR#: [id number] : 1935 Exam Date: 03/23/2024 Ordering Doctor: DR EMIL SWEENEY M.D. RADIOLOGY REPORT PROCEDURE: [facility] EST LMTD [facility] - OFFICE VISIT FOLLOW UP COMPARISON: [facility] EST LMTD, 03/02/2024. [facility] EST LMTD, 02/03/2024. PROGRESS NOTES: The patient reports no problems following intravenous laser ablation of the right great saphenous vein. The patient did wear her compression stocking. The patient did not require oral analgesics. The patient has tried exercise. Physical exam demonstrates a 4 cm area of moderate bruising in the mid right medial thigh likely related to tumescence injection. The incision is healed. The thrombosed right great saphenous vein can be partially palpated. No erythema or warmth to suggest cellulitis or thrombophlebitis. No active ulceration Review of the ultrasound performed the same day demonstrates occlusive thrombus extending throughout the treated right great saphenous vein. Heat induced thrombus is 2.3 cm from the saphenofemoral junction. The patient expressed a desire to proceed with treatment of incompetent varicose veins with micro foam chemical ablation. VEIN/[facility] EST LMTD IMPRESSION: 1. Successful ablation of the right great saphenous vein 2. Persistent bilateral incompetent varicose veins. PLAN: Micro foam chemical ablation incompetent varicose veins Nurse notes, history and physical were reviewed and confirmed, see attached forms. The nurse was present throughout the physical exam and consultation Dictated by: Emil Sweeney MD on 03/23/2024 at 15:10 Approved by: Emil Sweeney MD on 03/23/2024 at 15:19
== END 2024-03-23 15:41 | disposition home or self-care (01) ==
LOC: VC 14:27
PROVIDERS: PCP Radiology Diagnostic Radiology; Visit Provider Radiology Diagnostic Radiology
DX: I80.01 Phlebitis and thrombophlebitis of superficial vessels of right lower extremity (principal)
CPT/HCPCS: 93971; G0463

== ENCOUNTER 2024-04-01 10:45 | Outpatient (OUT) | payer MEDICARE, SELFPAY ==
[2024-03-31 08:35] VITALS: BMI 22.4
--- NOTE | 2024-03-31 08:35 | V.VEINS.HP ---
Vital Signs 03/31/24 08:35 04/01/24 13:42 Height 5 ft 6 in Weight 63 kg BMI 22.4 BP 112/70 BP Location Right Brachial BP Position Sitting BP Cuff Size Adult BP Source Manual Cuff Respiration 18 Pulse 62 Pulse Oximetry (%) 95 Oxygen Delivery Method Room Air Varicose Veins Patient in this day for varithena/microfoam chemical ablation. Romeo Muñoz MD personally performed the services described in this documentation, as scribed by Cecilio Mendoza RN in my presence and it is both accurate and complete. ICecilio RN, am scribing for, and in the presence of, Dr. Romeo Pabon and in the presence of the patient. knee: bilateral (Varicose veins noted throughout bilateral legs), calf: bilateral, ankle: bilateral and croft: bilateral aching, burning and dull 4 6 months Worsened in recent months: Yes standing, sitting and walking analgesics, bed rest, elevating extremities, compression stockings and exercise Reports erythema, edema and other (non healing stasis ulceration (left mid calf)) History of lower extremity trauma: No Superficial thrombophlebitis: No Family history of varicose veins: no Has patient had previous lower extremity venous surgery: No Patient has previously received the following treatment(s) for lower extremity varicose veins: Reports none Does patient have a history of : yes Does patient intend to have future pregnancies: no Has patient had lower extremity venous scan with relux testing: Yes Support hose used: Yes (x5 years ) Problems walking or doing physical activity: Yes How does it affect you: non healing wound to mid posteriorm calf Do you walk much: Yes Do you stand much: Yes Medication compliance: good Review of Systems ROS Narrative Romeo Muñoz MD personally performed the services described in this documentation, as scribed by Cecilio Mendoza RN in my presence and it is both accurate and complete. Cecilio Muñoz RN, am scribing for, and in the presence of, Dr. Romeo Pabon and in the presence of the patient. Status of ROS 10 or more systems reviewed and unremarkable except as noted in history and below Cardiovascular Reports: edema, swelling of feet/ankles and leg pain with exertion Musculoskeletal Reports: extremity pain, extremity swelling, limited range of motion, joint swelling, muscle cramps and muscle weakness Integumentary/Breast Reports: itching, redness, skin pain, skin tenderness, skin swelling, new lesion, non-healing lesion and changes in skin color Neurological Reports: numbness in extremities and weakness in extremities [facility] Medical History (Updated 03/31/24 @ 09:03 by Cecilio Mendoza) Phlebitis of superficial vein of left lower extremity ?I80.02 - Phlebitis and thrombophlebitis of superficial vessels of left lower extremity (ICD-10) Varicose veins of bilateral lower extremities with pain ?I83.813 - Varicose veins of bilateral lower extremities with pain (ICD-10) Chapped lips ?K13.0 - Diseases of lips (ICD-10) Cystitis with hematuria ?N30.91 - Cystitis, unspecified with hematuria (ICD-10) Chronic venous hypertension with ulcer ?I87.319 - Chronic venous hypertension (idiopathic) with ulcer of unspecified lower extremity (ICD-10) ?L97.909 - Non-pressure chronic ulcer of unspecified part of unspecified lower leg with unspecified severity (ICD-10) 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, stage III ?I13.0 - Hypertensive heart and chronic kidney disease with heart failure and stage 1 through stage 4 chronic kidney disease, or unspecified chronic kidney disease (ICD-10) ?N18.30 - Chronic kidney disease, stage 3 unspecified (ICD-10) Chronic atrial fibrillation ?I48.20 - Chronic atrial fibrillation, unspecified (ICD-10) ASHD (arteriosclerotic heart disease) ?I25.10 - Atherosclerotic heart disease of [place] coronary artery without angina pectoris (ICD-10) Hypokalemia ?E87.6 - Hypokalemia (ICD-10) Chest wall pain following surgery ?R07.89 - Other chest pain (ICD-10) ?G89.18 - Other acute postprocedural pain (ICD-10) Pulmonary nodule, left ?R91.1 - Solitary pulmonary nodule (ICD-10) At low risk for fall ?Z91.81 - History of falling (ICD-10) Menopause ?Z78.0 - Asymptomatic menopausal state (ICD-10) Vitamin D deficiency ?E55.9 - Vitamin D deficiency, unspecified (ICD-10) Hyperlipidemia ?E78.5 - Hyperlipidemia, unspecified (ICD-10) LISA (obstructive sleep apnea) ?G47.33 - Obstructive sleep apnea (adult) (pediatric) (ICD-10) Depression screening ?Z13.31 - Encounter for screening for depression (ICD-10) Acute on chronic diastolic (congestive) heart failure ?I50.33 - Acute on chronic diastolic (congestive) heart failure (ICD-10) Primary insomnia ?F51.01 - Primary insomnia (ICD-10) Pain due to varicose veins of both lower extremities ?I83.813 - Varicose veins of bilateral lower extremities with pain (ICD-10) IGLESIAS (dyspnea on exertion) ?R06.09 - Other forms of dyspnea (ICD-10) Gastroesophageal reflux disease with esophagitis ?K21.00 - Gastro-esophageal reflux disease with esophagitis, without bleeding (ICD-10) Stenosis of prosthetic mitral valve ?T82.857A - Stenosis of other cardiac prosthetic devices, implants and grafts, initial encounter (ICD-10) Elevated TSH ?R79.89 - Other specified abnormal findings of blood chemistry (ICD-10) TRAVIS (generalized anxiety disorder) ?F41.1 - Generalized anxiety disorder (ICD-10) Chronic bronchitis ?J42 - Unspecified chronic bronchitis (ICD-10) Decreased diffusion capacity ?R94.2 - Abnormal results of pulmonary function studies (ICD-10) Mitral valve stenosis ?I05.0 - Rheumatic mitral stenosis (ICD-10) Pulmonary hypertension ?I27.20 - Pulmonary hypertension, unspecified (ICD-10) Fatigue ?R53.83 - Other fatigue (ICD-10) Nicotine dependence ?F17.200 - Nicotine dependence, unspecified, uncomplicated (ICD-10) Pacemaker ?Z95.0 - Presence of cardiac pacemaker (ICD-10) COPD (chronic obstructive pulmonary disease) ?J44.9 - Chronic obstructive pulmonary disease, unspecified (ICD-10) Urinary incontinence due to urethral sphincter incompetence ?N36.42 - Intrinsic sphincter deficiency (ISD) (ICD-10) ?R32 - Unspecified urinary incontinence (ICD-10) Bilateral tinnitus ?H93.13 - Tinnitus, bilateral (ICD-10) Nonrheumatic mitral valve regurgitation ?I34.0 - Nonrheumatic mitral (valve) insufficiency (ICD-10) Hypertension ?I10 - Essential (primary) hypertension (ICD-10) Surgical History (Updated 03/17/24 @ 13:49 by Aubrie Dang) S/P TAVR (transcatheter aortic valve replacement) ?Z95.2 - Presence of prosthetic heart valve (ICD-10) Hx of appendectomy ?Z90.49 - Acquired absence of other specified parts of digestive tract (ICD-10) History of bladder suspension procedure ?Z98.890 - Other specified postprocedural states (ICD-10) ?Z87.448 - Personal history of other diseases of urinary system (ICD-10) History of colonoscopy ?Z98.890 - Other specified postprocedural states (ICD-10) History of dilation of urethra ?Z98.890 - Other specified postprocedural states (ICD-10) History of cystoscopy ?Z98.890 - Other specified postprocedural states (ICD-10) History of maze procedure ?Z98.890 - Other specified postprocedural states (ICD-10) Hx of CABG ?Z95.1 - Presence of aortocoronary bypass graft (ICD-10) History of mitral valve replacement ?Z95.2 - Presence of prosthetic heart valve (ICD-10) Family History (Updated 03/17/24 @ 13:51 by Aubrie Dang) Mother Family history of CHF (congestive heart failure) Pain due to varicose veins of both lower extremities Sister Pain due to varicose veins of both lower extremities Social History (Updated 03/17/24 @ 13:52 by Aubrie Dang) Within the past year, how often did you have a drink containing alcohol: 2-4 times a month Smoking status: Former smoker Non-prescribed substance use: denies use Meds Home Medications and Allergies Home Medications ?Medication ?Instructions ?Recorded ?Confirmed ?Type atorvastatin 20 mg tablet 20 mg PO DAILY 03/17/24 03/17/24 History bumetanide 2 mg tablet 1 mg PO DAILY 03/17/24 03/17/24 History clobetasol 0.05 % topical cream 1 applic topical DAILY 03/17/24 03/17/24 History famotidine 20 mg tablet 20 mg PO DAILY 03/17/24 03/17/24 History metoprolol tartrate 50 mg tablet 25 mg PO DAILY 03/17/24 03/17/24 History potassium chloride 10 mEq 10 meq PO DAILY 03/17/24 03/17/24 History tablet,extended release (Klor-Con) sulfasalazine 500 mg tablet 0.5 g PO DAILY 03/17/24 03/17/24 History warfarin 2 mg tablet (Jantoven) 1 mg PO QWEEK 03/17/24 03/17/24 History zolpidem 10 mg tablet (Ambien) 03/17/24 History Allergies Allergy/AdvReac Type Severity Reaction Status Date / Time iodine Allergy Unknown Verified 02/13/24 14:48 Exam Narrative Exam Narrative: Romeo Muñoz MD personally performed the services described in this documentation, as scribed by Cecilio Mendoza RN in my presence and it is both accurate and complete. ICecilio RN, am scribing for, and in the presence of, Dr. Romeo Pabon and in the presence of the patient. Constitutional Documenting provider has reviewed patient's vital signs: yes Common normals: oriented x3 Cardio Peripheral pulses: dorsalis pedis pulses present Extremity Common normals: normal capillary refill General: edema Right lower extremity: lower leg Right lower leg: inspection and palpation Left lower extremity: lower leg Left lower leg: inspection and palpation Neuro Common normals: oriented x3 Assessment and Plan Assessment and Plan Plan Left leg microfoam chemical ablation/Varithena: Risks and benefits of the procedure were discussed at length and informed written consent was obtained.? Time-out procedure was performed and the correct patient and procedure were confirmed.? Staff present during time-out: Cecilio Mendoza RN and Romeo Pabon MD.? Patient prepped and procedure performed in usual sterile fashion.? Patient was placed in Trendelenburg prior to Polidocanol/Varithena injections. Sclerosing Agent:?? 11cc 1% Polidocanol/Varithena Site Injected: left lecc varithena administered in to a 3mm varicose vein distal anterior medial lower leg 6cc varithena administered in to a 4mm varicoses vein mid lateral lower leg 1cc varithena administered in to left mid lateral upper leg Number of Injections:? 3 The patient tolerated the procedure well without complication.? Hemostasis was obtained and thigh-high compression stocking was applied with foam pads.? Instructed patient to wear stocking for at least 96 hours and sleep with it and only remove for showering.? The patient was instructed to? wear stocking for 2 weeks.? Patient verbalizes understanding and states they will comply.? Patient was given post-procedure instructions. Patient was discharged in good condition.? Scheduled to undergo limited venous ultrasound and? exam on I, Romeo Pabon MD personally performed the services described in this documentation, as scribed by Cecilio Mendoza RN in my presence and it is both accurate and complete. I, Cecilio Mendoza RN, am scribing for, and in the presence of, Dr. Romeo Pabon and in the presence of the patient. Procedures Procedure Note Date of procedure: 04/01/24 Procedure: Varithena/microfoam chemical ablation left leg Surgeon: Romeo Pabon
--- NOTE | 2024-03-31 09:01 | W.VEIN ---
Discharge Plan Discharge Disposition: Home, Self-Care Outpatient Diagnostics: [facility] Facility EST LMTD (Routine) Timeframe: 2 Weeks Facility: [facility] - Location: [facility] Ordered By: Emil Sweeney VC EXT Venous LT Limited (Routine) Timeframe: 2 Weeks Facility: [facility] - Location: [facility] Center Ordered By: Emil Sweeney Follow Up Appointments: 04/07/2024 @1330 Plan of Treatment: Left leg limited u/s along with physician examination and consultation Patient Instructions: Polidocanol (By injection) (Pat Dawsonthenish) Print Language: Czech Discharge Date/Time: 04/01/24 13:56
--- NOTE | 2024-04-01 10:50 | VEIN_ITS ---
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 Ultrasound-guided microfoam chemical ablation with Varithenaregistered 2. Intraoperative ultrasound guidance Physician: Romeo Pabon M.D. Anesthesia: None Indications for Procedure: 89 year old female. Symptoms including lower extremity swelling, dilated bulging veins, leg pain for many years despite conservative medical therapy including medical compression stockings, exercise and analgesics. Prior procedures include endovenous laser ablation. Multiple incompetent varicosities of the left leg. Duplex scan showed reflux and enlarged diameters up to 4 mm. The patient underwent informed consent including management options where the complications of infection, bleeding, pain, and skin injury were discussed. Particular attention was spent discussing thrombus extension and deep vein thrombosis as well as the possibility of pulmonary embolus and treatment with oral or injectable blood thinners. Procedure: The patient walked to the procedure room. All applicable staff donned appropriate apparel. A procedure timeout was performed to confirm correct patient, correct extremity, correct procedure, and correct room set-up including presence of all applicable supplies, devices, and drugs. A duplex ultrasound, performed by myself confirmed the location and incompetence of branch saphenous varicosities and their course was marked on the skin together with the dilated tributaries. The extent of treatment of the vein and the associated varicosities was determined through ultrasound mapping. The skin was prepped and then punctured with a butterfly needle and advanced under ultrasound guidance. The Varithenaregistered canister was activated and the canister was primed and purged as required in the instructions for use. Varithenaregistered was drawn into a sterile syringe. Varithenaregistered was slowly administered at 0.5-1.0 cc/second with close observation by ultrasound of its course in the vessels. Total volume utilized was: 8 mL (4 mL into a 3 mm varicosity distal anterior medial lower leg; 6 mL into a 4 mm varicosity mid lateral lower leg; 1 mL into a large reticular vein lateral proximal lower leg). Following administration of Varithenaregistered the leg was elevated and the patient was asked to repeatedly dorsiflex the ankle to limit flow of Varithenaregistered into perforating veins. Once appropriate spasm had been confirmed in the treated veins, the vascular catheter was removed from the leg and light pressure was applied over the puncture site for hemostasis. The common femoral and deep superficial veins were then evaluated for flow and compressibility prior to dressing placement. The lower extremity was kept elevated at 45 degrees above the horizontal and cording material was applied over the saphenous segments and tributaries to allow for eccentric compression over the target vessels including the targeted saphenous vein(s). A multilayer dressing was applied consisting of foam pads, coban and thigh-high 20-30 mm Hg compression elastic support hose were placed on the patient. The leg was lowered only after compression had been applied and the patient was immediately ambulatory. The patient ambulated 10 minutes under supervision and was without apparent concerns at time of release. Post-care instructions include advising patient to keep post-treatment bandages in place and dry for 48 hours, avoid extended periods of inactivity, avoid heavy exercise for one week, wear compression stockings on the treated leg continuously for two weeks, to walk daily for 10 minutes over the next month. The patient was instructed to take an anti-inflammatory medicine as needed and to follow up for color duplex scan of the Saphenous veins, the treated branch saphenous varicosities, the adjacent deep veins, and additional treatment within 7 days. PERSONNEL: Cecilio Mendoza RN Electronically authenticated by: ROMEO PABON Date: 04/01/2024 14:35
--- OUTSIDE RECORDS SUMMARY | 2024-04-01 10:53 | XMS_ITS | CCD ---
Author Organization [facility] Care Team Providers Care [employer] Operator Name Role Phone MANDOYARITZA SHABBIR Salcedo Unavailable Unavailable HARESH LINO Unavailable Unavailable HARESH LINO Primary Care Physician [phone] Haresh Lino DO Primary Care Provider Beverly Polanco MD Unavailable Emil Salinas Unavailable DO Haresh Lino Primary Care Provider Self, Referral Referring Provider Unavailable MD Emil Salinas Attending Provider MD Beverly Polanco Attending Provider Isael Lynch Unavailable FAWWAD, BELTRAN H Attending Unavailable FAWWAD, BELTRAN H Admitting Unavailable BALL, DR HUTSON Primary Care Unavailable FAWWAD, BELTRAN H Admitting Unavailable BALL, DR HUTSON Primary Care Unavailable FAWWAD, BELTRAN H Attending Unavailable FAWWAD, BELTRAN H Admitting Unavailable BALL, DR HUTSON Primary Care Unavailable FAWWAD, BELTRAN H Attending Unavailable FAWWAD, BELTRAN H Admitting Unavailable BALL, DR HUTSON Primary Care Unavailable FAWWAD, BELTRAN H Attending Unavailable FAWWAD, BELTRAN H Admitting Unavailable BALL, DR HUTSON Primary Care Unavailable FAWWAD, BELTRAN H Attending Unavailable FAWWAD, BELTRAN H Attending Unavailable BALL, DR HUTSON Primary Care Unavailable FAWWAD, BELTRAN H Admitting Unavailable FAWWAD, BELTRAN H Attending Unavailable BALL, DR HUTSON Primary Care Unavailable FAWWAD, BELTRAN H Admitting Unavailable FAWWAD, BELTRAN H Attending Unavailable FAWWAD, BELTRAN H Admitting Unavailable BALL, DR HUTSON Primary Care Unavailable FAWWAD, BELTRAN H Admitting Unavailable FAWWAD, BELTRAN H Attending Unavailable BALL, DR HUTSON Primary Care Unavailable BALL, DR HUTSON Consulting Unavailable BALL, DR HUTSON Attending Unavailable BALL, DR HUTSON Admitting Unavailable BALL, DR HUTSON Primary Care Unavailable ZIEBER, DR ARIELLA Hammond Consulting Unavailable FAWWAD, BELTRAN H Admitting Unavailable FAWWAD, BELTRAN H Attending Unavailable BALL, DR HUTSON Primary Care Unavailable FAWWAD, BELTRAN H Admitting Unavailable FAWWAD, BELTRAN H Attending Unavailable BALL, DR HUTSON Primary Care Unavailable FAWWAD, BELTRAN H Attending Unavailable FAWWAD, BELTRAN H Admitting Unavailable BALL, DR HUTSON Primary Care Unavailable Dakota, DO Hutson Primary Care Provider DO Haresh Lino Attending Provider Apoorva Love Unavailable Haresh Lino Unavailable Radha Escobar Unavailable Haresh Lino DO Primary Care Provider Collin VILLEGAS, Beverly R Unavailable Siria Galloway Unavailable DO Haresh Lino Primary Care Provider [phone] DO Haresh Lino Attending Provider Haresh Lino DO Primary Care Provider Collin VILLEGAS, Beverly R Unavailable DO Haresh Lino Primary Care Provider DO Haresh Lino Attending Provider MD Emil Salinas Attending Provider DO Haresh Lino Primary Care Provider [phone] EVI Alanis Attending Provider DO Haresh Lino Attending Provider DO Moni Wagoner Emergency Provider Jean Carlos Jimenez Unavailable Haresh Lino MD Primary Care Provider DO Haresh Lion Primary Care Provider EVI Goodman Attending Provider EVI Alanis Attending Provider DO Haresh Lino Primary Care Provider Dakota DO Hutson Attending Provider Ciaran Moni Proctor Emergency Provider [phone] MD Jean Carlos Jimenez Attending Provider CopEVI brown Attending Provider CopEVI brown Attending Provider [phone] BALL, HARESH E Primary Care Unavailable COLLIN, BEVERLY R Referring Unavailable BALL, HARESH E Primary Care Unavailable COLLIN, BEVERLY R Referring Unavailable BALL, HARESH E Primary Care Unavailable BALL, HARESH E Primary Care Unavailable ED BARLOW Referring Unavailable ANNITA BAEZ Attending Unavailable BALL, HARESH E Primary Care Unavailable COLLIN, BEVERLY R Referring Unavailable BALL, HARESH E Primary Care Unavailable COLLIN, BEVERLY R Attending Unavailable COLLIN, BEVERLY R Referring Unavailable BALL, HARESH E Primary Care Unavailable BALL, HARESH E Primary Care Unavailable COLLIN, BEVERLY R Referring Unavailable BALL, HARESH E Primary Care Unavailable COLLIN, BEVERLY R Referring Unavailable BALL, HARESH E Primary Care Unavailable COLLIN, BEVERLY R Referring Unavailable BALL, HARESH E Primary Care Unavailable COLLIN, BEVERLY R Referring Unavailable BALL, HARESH E Primary Care Unavailable ED BARLOW Referring Unavailable BALL, HARESH E Primary Care Unavailable SMITA REEVES Referring Unavailable BALL, HARESH E Primary Care Unavailable COLLIN, BEVERLY R Attending Unavailable COLLIN, BEVERLY R Admitting Unavailable MCGOWAN, LIZETT Attending Unavailable MCGOWAN, LIZETT Admitting Unavailable BALL, HARESH E Primary Care Unavailable BALL, HARESH E Primary Care Unavailable COLLIN, BEVERLY R Attending Unavailable BALL, HARESH E Primary Care Unavailable Esthela RAMOS Attending Unavailable BALL, HARESH E Primary Care Unavailable COLLIN, BEVERLY R Referring Unavailable BALL, HARESH E Primary Care Unavailable MCGOWAN, LIZETT Attending Unavailable BALL, HARESH E Primary Care Unavailable BALL, HARESH E Primary Care Unavailable ED BARLOW K Referring Unavailable BALL, HARESH E Primary Care Unavailable ED BARLOW K Referring Unavailable BALL, HARESH E Primary Care Unavailable COLLIN, BEVERLY R Referring Unavailable BALL, HARESH E Primary Care Unavailable COLLIN, BEVERLY R Referring Unavailable Ball, DO Haresh Primary Care Provider EVI Alanis Attending Provider [phone] Dakota DO, Haresh E Primary Care Provider Ball, DO Haresh Primary Care Provider EVI Alanis Attending Provider JOLIE GOSS Attending Unavailable PETITTI, RONY Barnes Attending Unavailable PETITTI, RONY Barnes Attending Unavailable RIVER, JOLIE Benítez Attending Unavailable PETITTI, RONY A Attending Unavailable RIVER, JOLIE Benítez Attending Unavailable PETITTI, RONY A Attending Unavailable Dakota, DO Haresh Primary Care Provider EVI Alanis Attending Provider Dakota, DO Hutson Primary Care Provider EVI Alanis Attending Provider Apoorva Love Admitting Unavailable Apoorva Love Attending Unavailable Ball, Haresh Primary Care Unavailable Ball, Haresh Referring Unavailable CopMelissa brown Admitting Unavailable Melissa Alanis Attending Unavailable Ball, Haresh Primary Care Unavailable Jean Carlos Jimenez Admitting Unavailabl e Jean Carlos Jimenez Attending Unavailabl e Ball, Haresh Primary Care Unavailable Moni Wagoner Admitting Unavailable Moni Wagoner Attending Unavailable Ball, Haresh Primary Care Unavailable Rasta Romero Admitting Unavailable Rasta Romero Attending Unavailable Ball, Haresh Primary Care Unavailable Ball, Haresh Primary Care Unavailable Ball, Haresh Attending Unavailable Ball, Haresh Admitting Unavailable Emil Salinas Admitting Unavailable Emil Salinas Attending Unavailable Ball, Haresh Primary Care Unavailable Allergies Allergy Classification Reported Allergen(s) Allergy Type Date of Onset Reaction(s) Facility (20 sources) Aspirin / oxyCODONE; Translations: [aspirin-oxycod one] Drug Allergy 09-18-19 Hallucinations (finding), Other: See Comments [facility] (20 sources) Iodine; Translations: [IODINE] Drug Allergy 09-18-19 Other: See Comments [facility] (1 source) Levallorphan Drug Allergy [facility] (1 source) patient allergy list reviewed by nurse or physicia Propensity to adverse reactions 06-04-20 Comment:Done [facility] Other (13 sources) Acetaminophen; Translations: [acetaminophen] Drug Allergy 10-14-19 24 Hallucinating [facility] (13 sources) Aspirin; Translations: [aspirin] Drug Allergy 10-14-19 24 Hallucinating [facility] (13 sources) oxyCODONE; Translations: [oxycodone] Drug Allergy 10-14-19 24 Hallucinating [facility] (3 sources) Other Allergy to substance 02-18-20 23 Unknown [facility] (1 source) OXYCODONE-ASPIR IN; Translations: [OXYCODONE-ASPI RIN] Propensity to adverse reactions to drug (disorder) 09-18-19 [facility] (1 source) Iodine Drug Allergy 03-03-20 [facility] Medications Current Medications Medication Drug Class(es) Dates Sig (Normalized) Sig (Original) amoxicillin 500 mg oral tablet (13 sources) Penicillin-class Antibacterial take 1 tablet by mouth twice daily Amoxicillin 500 mg tablet Take 500 mg by mouth two times a day. 0 Active Comment on above: Take 500 mg by mouth two times a day. amyl nitrite 0.3 ml nasal inhalant (20 sources) Start: 04-09-2023 amyl nitrite 1 Ampule Anoro Ellipta (1 source) Start: 11-29-2020 Anoro Ellipta 1 inh, Inhalation, Daily, Refill(s) 12 Start Date: 11/29/20 Status: Ordered ascorbic acid 500 mg chewable tablet (11 sources) Vitamin C Start: 11-17-2023 take 1 tablet by mouth once daily Ascorbic Acid (Vitamin C) (Acerola C) 500 mg tablet,chewable Active 500 MG PO Daily November 17, 2023 1:00am take 1 tablet by mouth in the mo rning Ascorbic Acid (vitamin C) 250 MG tablet Take 250 mg by mouth in the morning. 0 Active atorvastatin 20 mg oral tablet (20 sources) HMG-CoA Reductase Inhibitor Start: 04-24-2021 take 20 mg by mouth once daily at bedtime Atorvastatin Active 20 MG PO Daily at bedtime September 30, 2023 1:00am atorvastatin (Li pitor) 10 MG tablet 1 (one) time each day at the same time. 0 Active Atorvastatin [employer] cium Active Comment on above: Take 20 mg by mouth daily at bedtime. bumetanide 2 mg oral tablet (20 sources) Loop Diuretic Start: 01-27-2024 take 1 tablet by mouth twice daily Bumetanide Active 0 .ROUTE .COMPLEX 180 January 27, 2024 5:41pm TAKE 1 TABLET BY MOUTH TWO TIMES A DAY Start: 01-26-2024 End: 01-27-2024 take 1 tablet by mouth once daily Bumetanide Discontinued 0 .ROUTE .COMPLEX 90 January 26, 2024 1:09pm January 27, 2024 5:41pm TAKE 1 TABLET BY MOUTH EVERY DAY Start: 05-20-2021 End: 01-26-2024 take 2 mg by mouth once daily Bumetanide Discontinued 2 MG PO Daily September 30, 2023 1:00am January 26, 2024 1:09pm Start: 05-07-2021 take 1 tablet by neptali twice daily bumetanide 2 mg Tab 2 mg = 1 tab(s), Oral, BID Start Date: 05/07/21 Status: Ordered Bumetanide Activ e Comment on above: Take 2 mg by mouth o nce daily. Centrum Silver 50+Men (3 sources) Centrum Silver 50+Men Active cephalexin 500 mg oral capsule (20 sources) Cephalosporin Antibacterial Start: take 1 capsule by mouth every twelve hours Cephalexin 500 MG 1 capsule Orally bid for 7 days Sep, Active Start: 09-02-2023 take 1 tablet by neptali every eight hours Cephalexin 500 MG 1 tablet Orally tid for 7 days Aug, Not-Taking/PRN Start: 06-10-2022 take 1 capsule by mo [facility] every eight hours Cephalexin 500 MG 1 capsule Orally tid for 10 day(s) May, Active Start: 12-13-2021 End: 12-19-2021 take 1 capsule by mouth every twelve hours cephALEXin (KEFLEX) 500 mg capsule Take 1 capsule by mouth every 12 hours for 12 doses. 12 capsule 0 12/13/2021 12/19/2021 Active Comment on above: Take 1 capsule by mo [facility] every 12 hours for 12 doses. citric acid 75 mg/ml / magnesium oxide 21.9 mg/ml / picosulfate sodium 0.0625 mg/ml oral solution (1 source) Calculi Dissolution Agent, Anti-coagulant Start: diphenhydrAMINE hydrochloride 50 mg oral capsule (20 sources) Histamine-1 Receptor Antagonist Start: 024 take 1 capsule by mouth every hour diphenhydrAMINE (BENADRYL) 50 mg capsule Take 1 capsule by mouth as directed for 1 dose. one (1) hour prior to exam. 1 capsule 0 09/30/2023 Active Start: 05-21-2023 take 1 capsule by mo ut every hour for dyspnea diphenhydrAMINE (BENADRYL) 50 mg capsule Indications: Encounter for preprocedural cardiovascular examination , Nonrheumatic tricuspid valve regurgitation , Chronic right-sided heart failure (HCC) , IGLESIAS (dyspnea on exertion) , Atrial fibrillation, chronic (HCC) Take 1 capsule by mouth as directed for 1 dose. one (1) hour prior to CT. Repeat again prior to cath. 2 capsule 0 05/21/2023 Active Start: 11-02-2021 take 1 capsule by mo uth every hour diphenhydrAMINE (BENADRYL) 50 mg capsule Take 1 capsule by mouth as directed for 1 dose. one (1) hour prior to procedure. 1 capsule 0 12/11/2021 Active Comment on above: Take 1 capsule by mo wih as directed for 1 dose. one (1) hour prior to heart catheterization. Please repeat instructions prior to CT scan. Take 1 capsule by mo [facility] as directed for 1 dose. one (1) hour prior to procedure Take 1 capsule by [facility] as directed for 1 dose. one (1) hour prior to procedure. Take 1 capsule by mo [facility] as directed for 1 dose. one (1) hour prior to CT. Repeat again prior to cath. Take 1 capsule by mo [facility] as directed for 1 dose. one (1) hour prior to exam. Famotidine (20 sources) Histamine-2 Receptor Antagonist Start: take 1 tablet by mouth twice daily Famotidine Active 0 .ROUTE .COMPLEX 180 December 25, 2023 7:52pm TAKE 1 TABLET BY MOUTH 2 TIMES A DAY Start: 09-30-2023 End: 12-25-2023 take 10 mg by mouth twice daily Famotidine Discontinue d 10 MG PO Twice daily September 30, 2023 1:00am December 25, 2023 7:52pm Start: 10-20-2020 take 20 mg by mouth twice kellen y Famotidine Active 20 MG PO Twice daily September 30, 2023 12:00am take 1 tablet by neptali twice daily famotidine (PEPCID) 10 mg tablet Take 10 mg by mouth twice daily. 0 Active Pepcid AC Active Comment on above: Take 10 mg by mouth twice daily. iv contrast (will be provided with radiology test) (2 sources) Start: 2022 End: 2022 inject 1 dose intravenously once iv contrast (will be provided with radiology test) Indications: Encounter for preprocedural cardiovascular examination , Nonrheumatic tricuspid valve regurgitation , Chronic right-sided heart failure (HCC) , IGLESIAS (dyspnea on exertion) , Atrial fibrillation, chronic (HCC) CT Cardiac - No IV access, insert saline lock prior to the sedation, infusion, injection for imaging exam. Discontinue saline lock post exam. If Pt. has a central line or IVAD, may access for administration according to line specific nursing protocol. Once exam is complete flush line and de-access according to line specific nursing protocol in the CT contrast administration guidelines link. 1 Each 0 05/21/2023 05/22/2023 Active Comment on above: CT Cardiac - No IV a ccess, insert saline lock prior to the sedation, infusion, injection for imaging exam. Discontinue saline lock post exam. If Pt. has a central line or IVAD, may access for administration according to line specific nursing protocol. Once exam is complete flush line and de-access according to line specific nursing protocol in the CT contrast administration guidelines link. lubiprostone (4 sources) Chloride Channel Activator Start: 2023 take 1 capsule by mouth twice daily Lubiprostone (Amitiza) 24 mcg capsule Active 24 MCG PO Twice daily March 08, 2024 12:00am Start: 03-01-2024 take 1 capsule by mo [facility] twice daily Lubiprostone (Amitiza) 24 mcg capsule Active 24 MCG PO Twice daily 60 30 March 01, 2024 12:00am Metoprolol (20 sources) beta-Adrenergic Cecilia Start: 12-10-2023 take 1 tablet by mouth twice daily Metoprolol Tartrate Active 0 .ROUTE .COMPLEX 180 December 10, 2023 12:49pm TAKE 1 TABLET BY MOUTH TWO TIMES A DAY Start: 07-14-2021 End: 12-10-2023 take 50 mg by mouth twice daily Metoprolol Tartrate Discontinued 50 MG PO Twice daily September 30, 2023 1:00am December 10, 2023 12:49pm Start: 10-20-2020 Metoprolol tar trate 50 mg Tab 75 mg = 1.5 tab(s), Oral, BID, 75 mg Start Date: 10/20/20 Status: Ordered Metoprolol Tartr ate Active Comment on above: twice daily. Take 1 tablet by neptali th twice daily. Multivit With Min-Folic Acid (Multivitamin Gummies) 200 mcg tablet,chewable (10 sources) Start: 10-30-2023 take 1 tablet by mouth once daily Multivit With Min-Folic Acid (Multivitamin Gummies) 200 mcg tablet,chewable Active 1 TAB PO Daily October 30, 2023 1:00am Start: 10-30-2023 take 1 tablet by neptali th once daily Multivit With Min-Folic Acid (Multivitamin Gummies) 200 mcg tablet,chewable Active 1 TAB PO Daily October 30, 2023 12:00am multivit-min/iron/folic/lute in (CENTRUM SILVER WOMEN ORAL) (20 sources) multivit-min/iro n/folic/lutein (CENTRUM SILVER WOMEN ORAL) Take by mouth. 0 Suspended multivit-min/iro n/folic/lutein (CENTRUM SILVER WOMEN ORAL) Take by mouth. 0 Active Comment on above: Take by mouth. Multivitamin preparation (20 sources) Multivitamin - 1 gummy Orally Once a day Active mupirocin 0.02 mg/mg topical ointment (20 sources) RNA Synthetase Inhibitor Antibacterial Start: 09-02-2023 Mupirocin 2 % 1 application Externally Twice a day for 7 days Aug, Active Start: 06-10-2022 Mupirocin 2 % 1 application to affected area Externally Twice a day for 7 days May, Active Start: 12-11-2021 End: 12-11-2021 mupirocin (BACTROBAN) 2 % oi ntment Apply a small amount in each nostril using a cotton swab twice the day before surgery and once the morning of surgery. 22 g 0 12/11/2021 12/11/2021 Discontinued (Other) Comment on above: Apply a small amount in each nostril using a cotton swab twice the day before surgery and once the morning of surgery. perflutren lipid microspheres 1.3 mL in NaCl (PF) 0.9% 10 mL injection (DEFINITY) (20 sources) Start: 05-21-2023 End: 08-19-2024 perflutren lipid microspheres 1.3 mL in NaCl (PF) 0.9% 10 mL injection (DEFINITY) Start: 04-09-2023 End: 05-21-2023 perflutren lipid microsphere s 1.3 mL in NaCl (PF) 0.9% 10 mL injection (DEFINITY) Start: 04-09-2023 End: 07-08-2024 perflutren lipid microsphere s 1.3 mL in NaCl (PF) 0.9% 10 mL injection (DEFINITY) Start: 11-19-2022 End: 05-21-2023 perflutren lipid microsphere s 1.3 mL in NaCl (PF) 0.9% 10 mL injection (DEFINITY) Start: 11-19-2022 End: 02-18-2024 perflutren lipid microsphere s 1.3 mL in NaCl (PF) 0.9% 10 mL injection (DEFINITY) Start: 02-07-2022 End: 05-09-2023 perflutren lipid microsphere s 1.3 mL in NaCl (PF) 0.9% 10 mL injection (DEFINITY) Start: 12-12-2021 End: 03-13-2023 perflutren lipid microsphere s 1.3 mL in NaCl (PF) 0.9% 10 mL injection (DEFINITY) Start: 07-17-2021 End: 10-16-2022 perflutren lipid microsphere s 1.3 mL in NaCl (PF) 0.9% 10 mL injection (DEFINITY) potassium chloride 10 meq extended release oral tablet (20 sources) Start: 09-30-2023 take 10 mEq by mouth once daily Potassium Chloride Active 10 MEQ PO Daily September 30, 2023 1:00am Start: 06-27-2021 End: 02-07-2022 take 1 tablet by mouth once daily potassium chloride ER (K-DUR, KLOR-CON) 10 mEq tablet Take 1 tablet by mouth once daily. 0 02/07/2022 Active Start: 05-07-2021 take 1 tablet by neptali th once daily Klor Con 10 mEq Cap-ER 10 mEq = 1 tab(s), Oral, Daily Start Date: 05/07/21 Status: Ordered potassium chlori de CR (KLOR-CON) 10 MEQ ER tablet every 12 (twelve) hours. 0 Active Potassium Chlori de ER Active Comment on above: Take 1 tablet by neptali th once daily. predniSONE 50 mg oral tablet (3 sources) Start: 05-21-2023 End: 05-23-2023 predniSONE (DELTASONE) 50 mg Indications: Encounter for preprocedural cardiovascular examination , Nonrheumatic tricuspid valve regurgitation , Chronic right-sided heart failure (HCC) , IGLESIAS (dyspnea on exertion) , Atrial fibrillation, chronic (HCC) Take 1 tablet by mouth every 6 hours for 6 doses. For prevention of contrast allergy given 13 hrs, 7 hrs, and [address] Repeat again for cath. 6 tablet 0 05/21/2023 05/23/2023 Active Start: 12-11-2021 End: 12-12-2021 predniSONE (DELTASONE) 50 mg Take 1 tablet by mouth every 6 hours for 3 doses. For prevention of contrast allergy given 13 hrs, 7 hrs, and 1 hr prior to procedure. 3 tablet 0 12/11/2021 12/12/2021 Active Comment on above: Take 1 tablet by neptali th every 6 hours for 3 doses. For prevention of contrast allergy given 13 hrs, 7 hrs, and 1 hr prior to procedure. Take 1 tablet by neptali th every 6 hours for 6 doses. For prevention of contrast allergy given 13 hrs, 7 hrs, and [address] Repeat again for cath. 125 ml sodium chloride 9 mg/ml prefilled syringe (20 sources) Start: 05-21-2023 End: 05-20-2024 sodium chloride (NS) 0.9 % flush Infuse into a venous catheter if needed. 0 05/21/2023 05/20/2024 Active Start: 11-19-2022 End: 08-19-2024 sodium chloride (NS) 0.9 % f lush Infuse 10 mL into a venous catheter. 0 11/19/2022 08/19/2024 Active Start: 07-17-2021 End: 08-19-2024 sodium chloride 0.9 %, flush , (BD POSIFLUSH) syringe Indications: Encounter for preprocedural cardiovascular examination , Nonrheumatic tricuspid valve regurgitation , Chronic right-sided heart failure (HCC) , IGLESIAS (dyspnea on exertion) , Atrial fibrillation, chronic (HCC) Inject 2-10 mL intravenously as directed. For Echo procedure 10 mL 0 05/21/2023 05/20/2024 Active Comment on above: Inject 2-10 mL intra venously as directed. For Echo procedure spironolactone 25 mg oral tablet (20 sources) Aldosterone Antagonist Start: 10-30-19 take 12.5 mg by mouth once daily Spironolactone Active 12.5 MG PO Daily October 30, 2023 4:28pm Start: 09-30-2023 End: 10-30-2023 take 25 mg by mouth once daily Spironolactone Disconti nued 25 MG PO Daily September 30, 2023 1:00am October 30, 2023 4:34pm Start: 08-06-2023 End: 02-02-2024 take 0.5 tablet by mouth once daily spironolactone (ALDACTONE) 25 mg tablet take 1/2 tablet by mouth every day 45 tablet 3 01/26/2024 Active Comment on above: Take 0.5 tablets by mouth once daily. Stool Softener (3 sources) Stool Softener Active sulfamethoxazole 800 mg / trimethoprim 160 mg oral tablet (8 sources) Dihydrofolate Reductase Inhibitor Antibacterial, Sulfonamide Antimicrobial Start: 2022 take 1 tablet by mouth every twelve hours Bactrim DS 800-160 MG 1 tablet Orally Twice a day for 5 days Mar, Active tacrolimus 0.001 mg/mg topical ointment (3 sources) Calcineurin Inhibitor Immunosuppressant Start: 2022 tacrolimus (Protopic) 0.1 % ointment Indications: Rash and other nonspecific skin eruption Apply to affected areas on lips twice a day when flared 30 g 1 04/22/2023 Active Trelegy Ellipta inhalation powder (1 source) Start: 2020 End: 2021 take 1 puff(s) by inhalation once daily Jane Conklin inhalation powder = 1 puff(s), Inhalation, Daily, X 30 day(s), # 1 EA, Refills(s) 11, Pharmacy: [id number], 167, cm, 11/29/20 10:15:00 EDT, Height/Length Dosing, 75.2, kg, 11/29/20 10:15:00 EDT, Weight Dosing Start Date: 11/29/20 Stop Date: 11/24/21 Status: Ordered triamcinolone acetonide 1 mg/ml topical cream (4 sources) Corticosteroid Start: 2021 triamcinolone (Kenalog) 0.1 % cream APPLY TOPICALLY TO AFFECTED AREA TWICE DAILY FOR 14 DAYS 0 06/18/2022 Active Start: 06-17-2022 Triamcinolone Acetonide 0.1 % 1 application Externally Twice a day for 14 days Jun, Active zolpidem tartrate 10 mg oral tablet (20 sources) gamma-Aminobutyric Acid-ergic Agonist Start: 10-20-2020 take 10 mg by mouth once daily at bedtime Zolpidem Active 10 MG PO Daily at bedtime September 30, 2023 1:00am Zolpidem Tartrat e Active Comment on above: Take 10 mg by mouth daily at bedtime. Completed/Discontinued Medications Medication Drug Class(es) Dates Sig (Normalized) Sig (Original) [id number] 200 actuat albuterol 0.09 mg/actuat metered dose inhaler (20 sources) beta2-Adrenergic Agonist Start: 11-29-2023 End: 03-01-2024 Albuterol Sulfate Discontinued 1 INH INHALATION Every 4 hours November 29, 2023 12:00am March 01, 2024 2:47pm Start: 10-30-2023 End: 11-17-2023 take 1 puff(s) by inhalation every four hours Albuterol Sulfate Discontinued 1 PUFF INHALATION Every 4 hours October 30, 2023 4:24pm November 17, 2023 3:45pm Start: 09-30-2023 End: 10-30-2023 take 1 puff(s) by inhalation every four to six hours Albuterol Sulfate Discontinued 2 PUFF INHALATION EVERY 4-6 HOURS September 30, 2023 1:00am October 30, 2023 4:34pm take 1 puff(s) by in halation every four hours as needed Albuterol Sulfate HFA 108 (90 Base) MCG/ACT 1 puff as needed Inhalation every 4 hrs Active take 1 puff(s) by in halation every four hours as needed Albuterol Sulfate HFA 108 (90 Base) MCG/ACT 1 puff as needed Inhalation every 4 hrs Active take 1 puff(s) by in halation every four hours as needed Albuterol Sulfate HFA 108 (90 Base) MCG/ACT 1 puff as needed Inhalation every 4 hrs Active Albuterol Active ALBUTEROL INHALA TION Take 2 Puffs by mouth as needed. 0 Suspended ALBUTEROL INHALA TION Take 2 Puffs by mouth as needed. 0 Active Comment on above: Take 2 Puffs by mout h as needed. aspirin 81 mg oral tablet (20 sources) Platelet Aggregation Inhibitor, Nonsteroidal Anti-inflammatory Drug Start: 09-30-2023 End: 10-30-2023 take 81 mg by mouth once daily Aspirin Discontinued 81 MG PO Daily September 30, 2023 1:00am October 30, 2023 4:34pm Start: 12-13-2021 End: 12-31-2021 take 1 tablet by mouth once daily, then take 1 tablet by mouth once daily aspirin 81 mg chewable tablet Take 1 tablet by mouth once daily. 1 tablet a day til INR therapeutic 15 tablet 0 12/13/2021 12/31/2021 Discontinued Start: 10-20-2020 aspirin 81 mg Oral EC Tab Refills(s) 0 Start Date: 10/20/20 Status: Ordered take 1 tablet by neptali th every twenty-four hours Aspirin 81 81 MG 1 tablet Orally Once a day Active Comment on above: Take 1 tablet by neptali th once daily. 1 tablet a day til INR therapeutic bisacodyl 5 mg delayed release oral tablet (3 sources) Stimulant Laxative Start: 03-01-20 End: 03-01-20 take 1 tablet by mouth once daily at bedtime Bisacodyl (Dulcolax (Bisacodyl)) 5 mg tablet,delayed release (DR/EC) Discontinued 5 MG PO Daily at bedtime March 01, 2024 12:00am March 01, 2024 2:57pm clobetasol propionate 0.0005 mg/mg topical ointment (5 sources) Corticosteroid Start: 12-29-19 End: 02-24-20 Clobetasol Discontinued 1 APPLIC TOPICAL .3 times/week December 29, 2023 12:00am February 24, 2024 2:38pm thin layer to the left leg ulcer as per wound orders docusate sodium 100 mg oral capsule (20 sources) Start: 03-01-20 End: 03-01-20 take 1 capsule by mouth twice daily Docusate Sodium (Colace) 100 mg capsule Discontinued 100 MG PO Twice daily March 01, 2024 12:00am March 01, 2024 2:54pm Start: 10-30-2023 End: 10-30-2023 take 1 capsule by mouth once daily as needed Docusate Sodium Discontinued 100 MG PO Daily October 30, 2023 1:00am October 30, 2023 4:35pm Free[employer] capsule as needed Orally Once a day; Note: Source Status: Not-Taking\PRN; Provider: Dakota Hutson ( ) Start: 03-06-2016 take 1 capsule by [facility] once daily Docusate Sodium 250 mg capsule Take 250 mg by mouth once daily. 0 03/06/2016 Active Comment on above: Take 250 mg by mouth once daily. doxycycline hyclate 100 mg oral capsule (20 sources) Tetracycline-class Drug Start: 09-12-20 End: 12-29-19 take 100 mg by mouth twice daily Doxycycline Hyclate Discontinued 100 MG PO Twice daily December 15, 2023 12:00am December 29, 2023 3:28pm empagliflozin 10 mg oral tablet (20 sources) Sodium-Glucose Cotransporter 2 Inhibitor Start: 11-29-19 End: 12-02-19 take 1 tablet by mouth once daily Empagliflozin (Jardiance) 10 mg tablet Discontinued 10 MG PO Daily November 29, 2023 12:00am December 02, 2023 12:11pm Start: 09-30-2023 End: 11-17-2023 take 1 tablet by mouth once daily Empagliflozin (Jardiance) 10 mg Tablet Discontinued 10 MG PO Daily September 30, 2023 1:00am November 17, 2023 3:47pm Start: 08-14-2023 End: 09-13-2023 take 1 tablet by mouth once daily at breakfast empagliflozin (JARDIANCE) 10 mg tablet Take 1 tablet by mouth daily with breakfast. 30 tablet 0 08/14/2023 09/13/2023 Active Comment on above: Take 1 tablet by neptali th daily with breakfast. 30 actuat fluticasone furoate 0.1 mg/actuat / umeclidinium 0.0625 mg/actuat / vilanterol 0.025 mg/actuat dry powder inhaler (2 sources) Anticholinergic, Corticosteroid, beta2-Adrenergic Agonist Start: End: TRELEGY ELLIPTA 100-62.5-25 mcg 0 06/03/2021 12/11/2021 Discontinued (Patient chooses alternative therapy) gentamicin 0.001 mg/mg topical ointment (11 sources) Start: End: Gentamicin Discontinued 1 APPLIC TOPICAL .3 times/week October 20, 2023 1:00am November 12, 2023 2:03pm thin layer to left leg ulcer metroNIDAZOLE 0.0075 mg/mg topical gel (9 sources) Nitroimidazole Antimicrobial Start: End: Metronidazole Discontinued 1 APPLIC TOPICAL Daily 45 November 06, 2023 1:00am December 29, 2023 3:28pm apply thin layer to wound daily sulfaSALAzine 500 mg oral tablet (9 sources) Aminosalicylate Start: End: take 1 g by mouth twice daily at mealtime Sulfasalazine Discontinued 1 GM PO Twice daily November 18, 2023 1:00am March 01, 2024 2:57pm give with food (meal/snack) vit A/vit C/vit E/zinc/copper (PRESERVISION AREDS ORAL) (7 sources) End: vit A/vit C/vit E/zinc/copper (PRESERVISION AREDS ORAL) Take by mouth. 0 12/31/2021 Discontinued vit A/vit C/vit E/zinc/copper (PRESERVISION AREDS ORAL) Take by mouth. 0 Suspended vit A/vit C/vit E/zinc/copper (PRESERVISION AREDS ORAL) Take by mouth. 0 Active Comment on above: Take by mouth. warfarin sodium 2 mg oral tablet (20 sources) Vitamin K Antagonist Start: 10-20-2020 End: 11-10-2023 take 1 tablet by mouth once daily Warfarin (Jantoven) 2 mg tablet Discontinued 2 MG PO Daily October 30, 2023 4:30pm November 10, 2023 5:49pm 2 tablets (4mg) on Mon, Weds, and Fri and 1 tab (2mg) on Sun, , Th, and Sat or UD by the [facility] Warfarin 2mg Act madina Problems Active Problems Problem Classification Problem Date Documented Da te Episodic/Chronic Acquired foot deformities (6 sources) Hallux valgus; Translations: [Hallux valgus (acquired), right foot] Onset: 02-21-2023 02-21-2023 Chronic Acute and unspecified renal failure (1 source) Acute injury of kidney; Translations: [Acute kidney failure, unspecified] Episodic Acute bronchitis (6 sources) Acute bronchitis due to other specified organisms; Translations: [Acute bronchitis] 12-15-2023 Episodic Acute cerebrovascular disease (1 source) Cerebral infarction, unspecified; Translations: [CEREBRAL INFARCTION UNSPECIFIED] Onset: 10-17-2021 Chronic Anxiety disorders (20 sources) Generalized anxiety disorder; Translations: [Generalized anxiety disorder] Chronic Cardiac and circulatory congenital anomalies (1 source) Atrial septal defect; Translations: [Atrial septal defect] Onset: 12-18-2023 Chronic Cardiac dysrhythmias (20 sources) Atrial fibrillation; Translations: [Chronic atrial fibrillation] Onset: 05-31-2013 10-20-2020 Chronic Comment on above: Paroxismal A-Fib Cardiac dysrhythmias (1 source) Cardiac dysrhythmias Onset: 10-22-2017 Chronic kidney disease (20 sources) Chronic kidney disease; Translations: [Chronic kidney disease, unspecified] Onset: 12-12-2021 12-12-2021 Chronic Chronic kidney disease (1 source) Chronic kidney disease; Translations: [Stage 3a chronic kidney disease (HCC)] Onset: 12-13-2021 Chronic obstructive pulmonary disease and bronchiectasis (20 sources) Emphysema; Translations: [Emphysema, unspecified] Onset: 02-10-2018 Chronic Chronic ulcer of skin (20 sources) Superficial skin ulcer of lower limb; Translations: [Non-pressure chronic ulcer of unspecified part of right lower leg limited to breakdown of skin] Chronic Complications of surgical procedures or medical care (1 source) Dehiscence of surgical wound; Translations: [Disruption of external operation (surgical) wound] Episodic Conduction disorders (20 sources) Presence of cardiac pacemaker; Translations: [Cardiac pacemaker] Chronic Congestive heart failure; nonhypertensive (20 sources) Acute on chronic diastolic heart failure; Translations: [Acute on chronic diastolic (congestive) heart failure] Onset: 12-12-2021 12-12-2021 Chronic Coronary atherosclerosis and other heart disease (20 sources) Coronary arteriosclerosis; Translations: [Atherosclerotic heart disease of [place] coronary artery without angina pectoris] 10-20-2020 Chronic Diseases of mouth; excluding dental (9 sources) Disorder of lip; Translations: [Diseases of lips] Resolved: 11-04-2020 03-03-2024 Episodic Disorders of lipid metabolism (20 sources) Hyperlipidemia; Translations: [Pure hypercholesterolemia] 10-20-2020 Chronic Diverticulosis and diverticulitis (5 sources) 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 or abscess; Translations: [Diverticulosis of both small and large intestine without perforation or abscess without bleeding] 03-01-2024 Chronic Esophageal disorders (20 sources) Gastro-esophageal reflux disease with esophagitis; Translations: [Gastroesophageal reflux disease with esophagitis without hemorrhage] Chronic Esophageal disorders (20 sources) Esophageal disorders; Translations: [Gastroesophageal reflux disease with esophagitis without hemorrhage] Essential hypertension (20 sources) Essential hypertension; Translations: [Essential (primary) hypertension] Onset: 12-11-2021 12-11-2021 Chronic Fluid and electrolyte disorders (20 sources) Hypokalemia; Translations: [Hypokalemia] Episodic Gastrointestinal hemorrhage (20 sources) Hematochezia; Translations: [Blood in stool] Onset: 02-21-2019 10-14-2023 Episodic Genitourinary symptoms and ill-defined conditions (8 sources) Urinary incontinence; Translations: [Unspecified urinary incontinence] Onset: 11-02-2014 Chronic Genitourinary symptoms and ill-defined conditions (20 sources) Dysuria; Translations: [Dysuria] Onset: 05-18-2014 Episodic Heart valve disorders (20 sources) Rheumatic mitral stenosis; 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] Onset: 05-31-2013 Resolved: 11-07-2021 09-19-2021 Chronic Hypertension with complications and secondary hypertension (20 sources) Chronic kidney disease due to hypertension; Translations: [Hypertensive chronic kidney disease with stage 1 through stage 4 chronic kidney disease, or unspecified chronic kidney disease] 09-30-2023 Chronic Immunizations and screening for infectious disease (7 sources) Vaccination given; Translations: [Encounter for immunization] Episodic Malaise and fatigue (20 sources) Fatigue; Translations: [Other fatigue] Onset: 05-28-2016 Episodic Melanomas of skin (17 sources) H/O Malignant melanoma; Translations: [Personal history of malignant melanoma of skin] 09-30-2023 Episodic Miscellaneous mental health disorders (20 sources) Primary insomnia; Translations: [Primary insomnia] Chronic Nonspecific chest pain (7 sources) Chest pain; Translations: [Other chest pain] Episodic Nutritional deficiencies (20 sources) Vitamin D deficiency; Translations: [Vitamin D deficiency, unspecified] 09-30-2023 Chronic Open wounds of extremities (9 sources) Unspecified open wound, left lower leg, initial encounter; Translations: [Open wound of lower leg with complication] Onset: 03-08-2024 Episodic Open wounds of head; neck; and trunk (6 sources) Wound pain ; Translations: [Wound pain] 09-30-2023 Episodic Other aftercare (3 sources) 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; Translations: [MASK 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 CURRNT USE ANTICOAGULANTS] Onset: 08-17-2022 Episodic Other aftercare (20 sources) H/O: high risk medication; Translations: [Other pipe supervisor (current) drug therapy] Episodic Other aftercare (1 source) Other assisted (current) drug therapy; Translations: [High risk medication use] Episodic Other aftercare (7 sources) Long-term current use of drug therapy; Translations: [Other assisted (current) drug therapy] Episodic Other aftercare (20 sources) Long-term current use of anticoagulant; Translations: [alf (current) use of anticoagulants] 11-29-2023 Episodic Other circulatory disease (10 sources) Peripheral vascular disease; Translations: [Other specified peripheral vascular diseases] Onset: 07-13-2023 09-25-2023 Chronic Other circulatory disease (1 source) Other specified symptoms and signs involving the circulatory and respiratory systems Episodic Other connective tissue disease (6 sources) Cramp in lower leg associated with rest; Translations: [Sleep related leg cramps] Onset: 11-02-2014 Chronic Other connective tissue disease (1 source) Sleep related leg cramps; Translations: [Sleep related leg cramps] Onset: 11-02-2014 Chronic Other diseases of veins and lymphatics (19 sources) Chronic venous hypertension (idiopathic) with ulcer of unspecified lower extremity; Translations: [Chronic venous hypertension (idiopathic) with ulcer of unspecified lower extremity] Chronic Other diseases of veins and lymphatics (20 sources) Venous ulcer of lower extremity due to chronic peripheral venous hypertension; Translations: [Chronic venous hypertension (idiopathic) with ulcer of unspecified lower extremity] Chronic Other diseases of veins and lymphatics (20 sources) Peripheral venous insufficiency; Translations: [Venous insufficiency (chronic) (peripheral)] Onset: 03-01-2016 09-30-2023 Episodic Other diseases of veins and lymphatics (20 sources) Venous insufficiency (chronic) (peripheral); Translations: [Venous (peripheral) insufficiency, unspecified] Episodic Other ear and sense organ disorders (7 sources) Hearing loss; Translations: [Unspecified hearing loss, bilateral] Onset: 06-04-2017 Chronic Other hereditary and degenerative nervous system conditions (7 sources) Mild cognitive disorder ; Translations: [Mild cognitive impairment, so stated] Onset: 12-21-2015 Chronic Other inflammatory condition of skin (1 source) Erythematous condition, unspecified Episodic Other injuries and conditions due to external causes (7 sources) History of fall; Translations: [History of falling] Episodic Other lower respiratory disease (5 sources) Solitary pulmonary nodule; Translations: [SOLITARY PULMONARY NODULE] Onset: 05-28-2022 Episodic Other lower respiratory disease (20 sources) Dyspnea on exertion; Translations: [Other forms of dyspnea] 05-02-2023 Episodic Other lower respiratory disease (20 sources) Solitary nodule of lung; Translations: [Solitary pulmonary nodule] Episodic Other lower respiratory disease (7 sources) Dyspnea; Translations: [Other forms of dyspnea] Episodic Other nervous system disorders (20 sources) Acute postthoracotomy pain syndrome; Translations: [Acute post-thoracotomy pain] Episodic Other nervous system disorders (2 sources) Acute post-thoracotomy pain; Translations: [Acute post-thoracotomy pain] Episodic Other screening for suspected conditions (not mental disorders or infectious disease) (20 sources) Raised TSH level; Translations: [Abnormal results of thyroid function studies] Onset: 03-01-2016 Episodic Other skin disorders (2 sources) Seborrheic keratosis; Translations: [Other seborrheic keratosis] 10-23-2023 Episodic Other skin disorders (2 sources) Lentiginosis; Translations: [Other melanin hyperpigmentation] 10-23-2023 Episodic Other skin disorders (2 sources) Eruption; Translations: [Rash and other nonspecific skin eruption] 10-23-2023 Episodic Other skin disorders (2 sources) Epidermoid cyst; Translations: [Epidermal cyst] 10-23-2023 Episodic Other upper respiratory disease (7 sources) Seasonal allergic rhinitis; Translations: [Other seasonal allergic rhinitis] Onset: 02-18-2018 Chronic Demetria-; endo-; and myocarditis; cardiomyopathy (except that caused by tuberculosis or sexually transmitted disease) (15 sources) Cardiomyopathy; Translations: [Other cardiomyopathies] Onset: 08-06-2023 08-06-2023 Chronic Pulmonary heart disease (20 sources) Pulmonary hypertension; Translations: [Pulmonary hypertension, unspecified] Onset: 04-04-2023 Chronic Residual codes; unclassified (20 sources) Obstructive sleep apnea syndrome; Translations: [Obstructive sleep apnea (adult) (pediatric)] 11-29-2023 Chronic Residual codes; unclassified (16 sources) Obstructive sleep apnea (adult) (pediatric); Translations: [Obstructive sleep apnea (adult)(pediatric)] Onset: 05-16-2022 Resolved: 05-16-2022 Chronic Residual codes; unclassified (1 source) Obstructive sleep apnea (adult)(pediatric); Translations: [Obstructive sleep apnea (adult) (pediatric)] Onset: 05-20-2023 Chronic Residual codes; unclassified (2 sources) History of maze procedure for atrial fibrillation; Translations: [Other specified postprocedural states] Episodic Residual codes; unclassified (20 sources) Asymptomatic menopausal state; Translations: [Menopause] Episodic Residual codes; unclassified (7 sources) Postmenopausal state; Translations: [Asymptomatic menopausal state] Episodic Residual codes; unclassified (7 sources) Procedure not done; Translations: [Procedure and treatment not carried out because of patient's decision for unspecified reasons] Episodic Residual codes; unclassified (3 sources) Edema of left lower leg; Translations: [Localized edema] 09-30-2023 Episodic Residual codes; unclassified (3 sources) Localized edema; Translations: [Edema] 09-30-2023 Episodic Residual codes; unclassified (3 sources) Menopause present; Translations: [Asymptomatic menopausal state] Episodic Retinal detachments; defects; vascular occlusion; and retinopathy (1 source) Partial retinal artery occlusion; 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] Onset: 09-22-2018 Chronic Screening and history of mental health and substance abuse codes (3 sources) Ex-smoker; Translations: [History of tobacco use] Onset: 02-03-2017 10-20-2020 Episodic Skin and subcutaneous tissue infections (2 sources) Cellulitis of left lower limb Episodic Substance-related disorders (20 sources) Hypnotic dependence; Translations: [Sedative, hypnotic or anxiolytic dependence, uncomplicated] Onset: 05-16-2022 Resolved: 05-16-2022 Chronic Unclassified (1 source) Nonrheumatic pulmonary valve insufficiency / I37.1(ICD-9) Onset: 10-22-2017 Unclassified (2 sources) Encounter for preprocedural cardiovascular examination / Z01.810(ICD-9) Onset: 10-22-2017 Unclassified (1 source) Athscl heart disease of [place] coronary artery w/o ang pctrs / I25.10(ICD-9) Onset: 10-22-2017 Unclassified (1 source) Nonrheumatic tricuspid (valve) insufficiency / I36.1(ICD-9) Onset: 10-22-2017 Unclassified (1 source) Nonrheumatic aortic (valve) stenosis with insufficiency / I35.2(ICD-9) Onset: 10-22-2017 Unclassified (1 source) Alcohol abuse, uncomplicated / F10.10(ICD-9) Onset: 10-22-2017 Unclassified (1 source) Overweight / E66.3(ICD-9) Onset: 10-22-2017 Unclassified (1 source) Personal history of nicotine dependence / Z87.891(ICD-9) Onset: 10-22-2017 Unclassified (1 source) Presence of prosthetic heart valve / Z95.2(ICD-9) Onset: 10-22-2017 Unclassified (9 sources) Chronic atrial fibrillation, unspecified; Translations: [Atrial fibrillation, chronic (HCC)] Onset: 12-13-2021 Resolved: 05-16-2022 Unclassified (1 source) Other and unspecified superficial injury of hip, thigh, leg, and ankle, infected; Translations: [Other and unspecified superficial injury of hip, thigh, leg, and ankle, infected] Onset: 03-01-2016 Unclassified (7 sources) Other specified cough; Translations: [Other specified cough] Onset: 02-10-2018 Unclassified (6 sources) Inflammatory disorder; Translations: [Inflammation] 09-30-2023 Unclassified (1 source) Permanent atrial fibrillation; Translations: [Permanent atrial fibrillation (HCC)] Onset: 08-06-2023 Unclassified (1 source) Hemorrhage of anus and rectum; Translations: [Hemorrhage of anus and rectum] Onset: 11-18-2023 Unclassified (1 source) Malignant melanoma of left lower limb, including hip; Translations: [Malignant melanoma of left lower limb, including hip] Onset: 05-27-2023 Varicose veins of lower extremity (14 sources) Pain co-occurrent and due to varicose veins of bilateral legs; Translations: [Varicose veins of bilateral lower extremities with pain] Episodic Past or Other Problems Problem Classification Problem Date Documented Date Episodic/Chronic Acute posthemorrhagic anemia (1 source) Acute posthemorrhagic anemia; Translations: [Acute posthemorrhagic anemia] Onset: 05-31-2013 Episodic Allergic reactions (7 sources) Idiopathic urticaria; Translations: [Idiopathic urticaria] Onset: 01-20-2017 Episodic Complication of device; implant or graft (20 sources) Prosthetic mitral valve stenosis; Translations: [Stenosis of other cardiac prosthetic devices, implants and grafts, initial encounter] Onset: 01-04-2021 12-11-2021 Episodic Conditions associated with dizziness or vertigo (14 sources) Benign paroxysmal positional vertigo; Translations: [Benign paroxysmal vertigo, unspecified ear] Onset: 09-20-2015 Episodic Mycoses (3 sources) Onychomycosis; Translations: [Tinea unguium] Onset: 02-21-2023 02-21-2023 Episodic Other aftercare (20 sources) Encounter for therapeutic drug level monitoring; Translations: [ENC THERAPEUTC DRUG LEVL MONITORING] Onset: 02-14-2022 Episodic Other bone disease and musculoskeletal deformities (7 sources) Bone density finding; Translations: [Other specified disorders of bone density and structure, unspecified site] Onset: 05-28-2016 Episodic Other circulatory disease (7 sources) Low blood pressure; Translations: [Hypotension, unspecified] Onset: 08-18-2014 Episodic Other connective tissue disease (1 source) Pain in limb; Translations: [Pain in soft tissues of limb] Onset: 05-28-2016 Episodic Other connective tissue disease (3 sources) Pain in both feet; Translations: [Pain in right foot] Onset: 02-21-2023 02-21-2023 Episodic Other ear and sense organ disorders (1 source) Impacted cerumen; Translations: [Impacted cerumen] Onset: 06-04-2017 Episodic Other ear and sense organ disorders (7 sources) Bilateral tinnitus; Translations: [Tinnitus, bilateral] Resolved: 02-09-2020 Episodic Other endocrine disorders (1 source) Disorder of endocrine system; Translations: [Unspecified endocrine disorder] Onset: 01-26-2017 Episodic Other lower respiratory disease (1 source) Other forms of dyspnea; Translations: [IGLESIAS (dyspnea on exertion)] Onset: 08-13-2023 Episodic Other nutritional; endocrine; and metabolic disorders (7 sources) Overweight; Translations: [Overweight] Onset: 10-08-2020 Episodic Other skin disorders (3 sources) Callosity; Translations: [Corns and callosities] Onset: 02-21-2023 02-21-2023 Episodic Residual codes; unclassified (1 source) Requires influenza virus vaccination; Translations: [Need for prophylactic vaccination and inoculation, Influenza] Onset: 06-04-2017 Episodic Residual codes; unclassified (1 source) Other specified postprocedural states; Translations: [Hx of maze procedure] Onset: 04-04-2023 Episodic Unclassified (1 source) Encounter for preprocedural cardiovascular examination; Translations: [Encounter for preprocedural cardiovascular examination] Onset: 10-22-2017 Urinary tract infections (14 sources) Acute cystitis; Translations: [Acute cystitis without hematuria] Onset: 05-18-2014 Resolved: 02-09-2020 Episodic Results Test Name Value Interpretation Reference Range Facility No Panel Informationon 02-17 Bedside INR (LAB) 2.4 [facility] No Panel Informationon 01-20 Bedside INR (LAB) 2.4 [facility] SURGICAL PATHOLOGY REFERENCE LAB CONSULTon 01-01-2024 CASE REPORT Normal [facility] Comment on above: Order Comment: Ezekiel manley Type: BLOOD SPECIMEN Ordering Facility: [facility] Address: [address] [place] [address] Result Comment: Surg ical Pathology Report Case: [id number] Authorizing Provider: Shashank Welsh MD Collected: 01/01/2024 07:18 PM Ordering Location: [facility] Received: 01/01/2024 07:18 PM [facility] Pathologist: Marissa Tijerina MD Specimen: Slide(s), 1 SLIDE ([id number]) Performed By: #### 2 [id number] #### [facility] CLIA [id number] [address] [place] [address] [place] CLINICAL HISTORY CONSULT REQUESTED [facility] Comment on above: Order Comment: Ezekiel manley Type: BLOOD SPECIMEN Ordering Facility: [facility] Address: [address] [place] [address] Performed By: #### 2 [id number] #### [facility] CLIA [id number] [address] [place] [address] [place] DIAGNOSIS COMMENT Normal [facility] Comment on above: Order Comment: Ezekiel manley Type: BLOOD SPECIMEN Ordering Facility: [facility] Address: [address] [place] [address] Result Comment: Than k you for allowing us to review this biopsy specimen from the left lower posterior leg of an 88-year-old patient. The clinical history of a non-healing wound and a history of melanoma were reviewed. Histologic sections demonstrate small fragmented tissue consists of parakeratosis overlying an epidermis with reactive changes and fibrinopurulent ulcer base. Within the superficially sampled dermis, there is a dense interstitial and perivascular inflammatory infiltrate predominantly composed of neutrophils. The small blood vessels exhibit fibrin thrombi and fibrinoid necrosis. Additionally, there is diffuse solar elastosis. Overall, I agree with Dr. Kruse that the histologic features are those of superficial fragments of fibrinopurulent ulcer base, dermal acute inflammation, and vasculopathy. Malignancy is not identified in the planes of section available for examination. Given the small and fragmented nature of the biopsy, if clinical concern for malignancy persists or if this lesion should progress, a repeat deeper sample is recommended. Clinical correlation remains essential. Thank you for sending this case in consultation. Please call the Dermatopathology Consultation Service at [phone] with questions or if additional follow-up information becomes available regarding this patient. This case was reviewed in conjunction with the Dermatopathology Fellow, Dr. Rawls. Performed By: #### 2 4321-2 #### [facility] CLIA [id number] [address] [place] [address] OF [facility] FINAL DIAGNOSIS Normal [facility] Comment on above: Order Comment: Speci men Type: BLOOD SPECIMEN Ordering Facility: [facility] Address: [address] [place] [address] Result Comment: A. S kin, left lower posterior leg, shave biopsy: - Superficial fragments of fibrinopurulent ulcer base, dermal acute inflammation, and vasculopathy, see comment. SR/CR 01/07/2024 Performed By: #### 2 4321-2 #### [facility] CLIA [id number] [address] [place] [address] FINAL PERFORMING LAB Normal [facility] Comment on above: Order Comment: Speci men Type: BLOOD SPECIMEN Ordering Facility: [facility] Address: [address] [place] [address] Result Comment: Diag nostic interpretation performed at [facility], [address] [place] [address] CLIA# [id number] Behavioral Assistant: Guilherme Pham M.D. Performed By: #### 2 4321-2 #### [facility] CLIA [id number] [address] [place] [address] [place] No Panel Informationon 12-23 Bedside INR (LAB) 2.2 [facility] Basic metabolic 2000 panelon 12-18-2023 Anion gap [Moles/Vol] 12 mmol/L Normal 9-18 [facility] Comment on above: Order Comment: Speci men Type: BLOOD SPECIMEN Ordering Facility: [facility] Address: [address] [place] [address] Performed By: #### 2 4321-2 #### [facility] CLIA [id number] [address] [place] [address] [place] Calcium [Mass/Vol] 9.4 mg/dL Normal 8.5-10.[address] [facility] Comment on above: Order Comment: Speci men Type: BLOOD SPECIMEN Ordering Facility: [facility] Address: [address] [place] [address] Performed By: #### 2 4321-2 #### [facility] CLIA [id number] [address] [place] [address] [place] Chloride [Moles/Vol] 101 mmol/L Normal 97-105 [facility] Comment on above: Order Comment: Speci men Type: BLOOD SPECIMEN Ordering Facility: [facility] Address: [address] [place] [address] Performed By: #### 2 4321-2 #### [facility] CLIA [id number] [address] [place] [address] [place] CO2 [Moles/Vol] 25 mmol/L Normal 22-30 [facility] Comment on above: Order Comment: Speci men Type: BLOOD SPECIMEN Ordering Facility: [facility] Address: [address] [place] [address] Performed By: #### 2 4321-2 #### [facility] CLIA [id number] [address] [place] [address] [place] Creatinine [Mass/Vol] 1.02 mg/dL High 0.58-0.96 [facility] Comment on above: Order Comment: Speci men Type: BLOOD SPECIMEN Ordering Facility: [facility] Address: [address] [place] [address] Performed By: #### 2 4321-2 #### [facility] CLIA [id number] [address] [place] [address] [place] Creatinine and Glomerular filtration rate.predicted panel (S/P/Bld) 53 mL/min/1.73m??? Low >=60 [facility] Comment on above: Order Comment: Ezekiel manley Type: BLOOD SPECIMEN Ordering Facility: [facility] Address: [address] [place] [address] Result Comment: Harriet mated Glomerular Filtration Rate (eGFR) is calculated using the 2020 CKD-EPI creatinine equation. This equation utilizes serum creatinine, sex, and age as parameters. The creatinine assay has traceable calibration to isotope dilution-mass spectrometry. Refer to KDIGO guidelines for clinical interpretation. In patients with unstable renal function, e.g. those with acute kidney injury, the eGFR may not accurately reflect actual GFR. Performed By: #### 2 4321-2 #### [facility] CLIA [id number] [address] [place] [address] [place] Glucose [Mass/Vol] 129 mg/dL High 74-[address] [facility] Comment on above: Order Comment: Ezekiel manley Type: BLOOD SPECIMEN Ordering Facility: [facility] Address: [address] [place] [address] Result Comment: The [place] Diabetes Association (ADA) provides guidance for cutoff values for fasting glucose and random glucose. The ADA defines fasting as no caloric intake for at least 8 hours. Fasting plasma glucose results between 100 to 125 mg/dL indicate increased risk for diabetes (prediabetes). Fasting plasma glucose results greater than or equal to 126 mg/dL meet the criteria for diagnosis of diabetes. In the absence of unequivocal hyperglycemia, results should be confirmed by repeat testing. In a patient with classic symptoms of hyperglycemia or hyperglycemic crisis, random plasma glucose results greater than or equal to 200 mg/dL meet the criteria for diagnosis of diabetes. Reference: Standards of Medical Care in Diabetes 2016, [place] Diabetes Association. Diabetes Care. 2016.39(Suppl 1). Performed By: #### 2 4321-2 #### [facility] CLIA [id number] [address] [place] [address] [place] Potassium [Moles/Vol] 3.9 mmol/L Normal 3.7-5.1 [facility] Comment on above: Order Comment: Speci men Type: BLOOD SPECIMEN Ordering Facility: [facility] Address: [address] [place] [address] Performed By: #### 2 4321-2 #### [facility] CLIA [id number] [address] [place] [address] [place] Sodium [Moles/Vol] 138 mmol/L Normal 136-[address] [facility] Comment on above: Order Comment: Speci men Type: BLOOD SPECIMEN Ordering Facility: [facility] Address: [address] [place] [address] Performed By: #### 2 4321-2 #### [facility] CLIA [id number] [address] [place] [address] [place] Urea nitrogen [Mass/Vol] 35 mg/dL High 7-21 [facility] Comment on above: Order Comment: Speci men Type: BLOOD SPECIMEN Ordering Facility: [facility] Address: [address] [place] [address] Performed By: #### 2 4321-2 #### [facility] CLIA [id number] [address] [place] [address] [place] CBC panel Auto (Bld)on 12-17 Erythrocyte distribution width (RBC) [Ratio] 13.5 % Normal 11.5-15.0 [facility] Comment on above: Order Comment: Speci men Type: BLOOD SPECIMENOrdering Facility: [facility] Address: [address] [place] [address] Performed By: #### 5 8410-2 ####[facility] [id number] [place] [address] [place] Hematocrit (Bld) [Volume fraction] 36.4 % Normal 36.0-46.0 [facility] Comment on above: Order Comment: Speci men Type: BLOOD SPECIMENOrdering Facility: [facility] Address: [address] [place] [address] Performed By: #### 5 8410-2 ####[facility] [id number] [place] [address] [place] Hemoglobin (Bld) [Mass/Vol] 11.8 g/dL Normal 11.5-15.5 [facility] Comment on above: Order Comment: Speci men Type: BLOOD SPECIMENOrdering Facility: [facility] Address: [address] [place] [address] Performed By: #### 5 8410-2 ####[facility] [id number] [place] [address] [place] MCH (RBC) [Entitic mass] 30.6 pg Normal 26.0-34.0 [facility] Comment on above: Order Comment: Speci men Type: BLOOD SPECIMENOrdering Facility: [facility] Address: [address] [place] [address] Performed By: #### 5 8410-2 ####[facility] [id number] [place] [address] [place] MCHC (RBC) [Mass/Vol] 32.4 g/dL Normal 30.5-36.0 [facility] Comment on above: Order Comment: Speci men Type: BLOOD SPECIMENOrdering Facility: [facility] Address: [address] [place] [address] Performed By: #### 5 8410-2 ####[facility] [id number] [place] [address] [place] MCV (RBC) [Entitic vol] 94.3 fL Normal 80.0-100.0 [facility] Comment on above: Order Comment: Speci men Type: BLOOD SPECIMENOrdering Facility: [facility] Address: [address] [place] [address] Performed By: #### 5 8410-2 ####[facility] [id number] [place] [address] [place] Nucleated RBC (Bld) [#/Vol] 10*3/uL Normal <0.01 [facility] Comment on above: Order Comment: Speci men Type: BLOOD SPECIMENOrdering Facility: [facility] Address: [address] [place] [address] Performed By: #### 5 8410-2 ####[facility] [id number] [place] [address] [place] Platelet mean volume (Bld) [Entitic vol] 10.5 fL Normal 9.0-12.7 [facility] Comment on above: Order Comment: Speci men Type: BLOOD SPECIMENOrdering Facility: [facility] Address: [address] [place] [address] Performed By: #### 5 8410-2 ####[facility] [id number] [place] [address] [place] Platelets (Bld) [#/Vol] 157 10*3/uL Normal 150-400 [facility] Comment on above: Order Comment: Speci men Type: BLOOD SPECIMENOrdering Facility: [facility] Address: [address] [place] [address] Performed By: #### 5 8410-2 ####[facility] [id number] [place] [address] [place] RBC (Bld) [#/Vol] 3.86 10*6/uL Low 3.90-5.20 [facility] Comment on above: Order Comment: Speci men Type: BLOOD SPECIMENOrdering Facility: [facility] Address: [address] [place] [address] Performed By: #### 5 8410-2 ####[facility] [id number] [place] [address] [place] WBC (Bld) [#/Vol] 8.09 10*3/uL Normal 3.70-11.00 [facility] Comment on above: Order Comment: Speci men Type: BLOOD SPECIMENOrdering Facility: [facility] Address: [address] [place] [address] Performed By: #### 5 8410-2 ####[facility] [id number] [place] [address] [place] [id number] 12-18-2023 ECG01 Ventricular Rate : 6 9 BPM Atrial Rate : 87 BPM QRS Duration : 98 ms Q-T Interval : 426 ms QTC Calculation(Bazett) : 456 ms Calculated R Savoy : 6 degrees Calculated T Sav[place] : 42 degrees ATRIAL FIBRILLATION INCOMPLETE RIGHT BUNDLE BRANCH BLOCK POSSIBLE ANTERIOR MYOCARDIAL INFARCTION , AGE UNDETERMINED ABNORMAL ECG Confirmed by MD HAMLET, PhD, JAYLA ([id number]) on 01/03/2024 4:00:18 PM NAME : CELIA CHOPRA PID : [id number] : 1935 Gender : Female Race : ORD : Procedure Date : Dec 18 2023 07:01:19 Edit Date : Jan 03 2024 16:00:24 Diagnosis: ATRIAL FIBRILLATION INCOMPLETE RIGHT BUNDLE BRANCH BLOCK POSSIBLE ANTERIOR MYOCARDIAL INFARCTION , AGE UNDETERMINED ABNORMAL ECG Confirmed by MD HAMLET, PhD, JAYLA ([id number]) on 01/03/2024 4:00:18 PM Test Reason : 921 Location : 23 : 1 J21NS Overread By : MD HAMLET, PhD,JAYLA Edited By : MD HAMLET, PhD,JAYLA Referred By : BEVERLY POLANCO Acquired by : [id number], Normal [facility] ECHOon 12-18-2023 Echocardiography Echocardiography Report: Transthoracic Echo [facility] Bedside Date of service: 12/18/2023 2:10:07 PM MANAGER Ordering physician: MANUEL CADET Indication: s/p ASD closure Technologist: Doug Bryan Interpreting physician: Ivan Harrison MD PATIENT: Name: MRS. CELIA CHOPRA : 1935 Age: 88 years Gender: F History of valvular heart disease, arrhythmia, coronary artery disease, hypertension, cardiomyopathy and chronic kidney disease. Previous cardiovascular interventions: Mitral valve replacement (2012) CABG (2012) TMVR ([place]) (12/12/2021) ASD closure (12/18/2023) Primary rhythm: atrial fib. Height: 167.64 cm BSA: 1.77 m Weight: 67.59 kg BMI: 24.0 kg/m Heart rate 70 bpm Blood pressure 122/56 mmHg Technically difficult exam due to suboptimal positioning. Color Doppler was utilized to interrogate the cardiac valves assessed and spectral Doppler was utilized to determine the flow velocities and pressure gradients reported in this exam. MEASUREMENTS: Value Normal Ejection Fraction 60 % (visual est.) EF > 54 FINDINGS: LEFT VENTRICLE Left ventricular systolic function is normal. Left ventricular diastolic function was not evaluated due to AF. Wall Motion: All scored segments are normal. RIGHT VENTRICLE The right ventricle is dilated. Right ventricular systolic function is moderately decreased. Estimated right atrial pressure is 15 mmHg based on IVC assessment. RIGHT ATRIUM The right atrial cavity is dilated. The eustachian valve appears prominent. Inferior Vena Cava: The inferior vena cava appears dilated measuring 2.4 cm. The vessel decreases less than 50 percent with inspiration. MITRAL VALVE Marina Nela prosthetic valve size #26. There is trace mitral valve regurgitation. The peak mitral valve gradient is 16 mmHg. The mean mitral valve gradient is 5 mmHg. TRICUSPID VALVE There is moderately severe (3+) tricuspid valve regurgitation caused by annular dilatation. There is no thickening. AORTIC VALVE There is trace aortic valve regurgitation. Tricuspid aortic valve. There is mild thickening. The peak gradient is 21 mmHg (peak velocity = 228.0 cm/s). The mean gradient is 12 mmHg. The LVOT mean velocity is 101.1 cm/s. The aortic VTI is 43.7 cm. The mean velocity in the aortic valve is 160.1 cm/s. The dimensionless valve index is 0.71. PULMONIC VALVE The pulmonic valve cusps are structurally normal. There is trace pulmonic valve regurgitation. INTERVENTRICULAR SEPTUM There is systolic and diastolic flattening of the interventricular septum consistent with RV pressure and volume overload. PERICARDIUM There is no pericardial effusion. CONCLUSIONS: - Technically difficult exam due to suboptimal positioning. - Exam indication: s/p ASD closure - Left ventricular systolic function is normal. EF = 60 5% (visual est.) - The right ventricle is dilated. Right ventricular systolic function is moderately decreased. - The right atrial cavity is dilated. - Marina Nela prosthetic mitral valve (size #26). There is trace mitral valve regurgitation. The peak gradient is 16 mmHg and the mean gradient is 5 mmHg. - There is moderately severe (3+) tricuspid valve regurgitation caused by annular dilatation. - Agitated saline contrast reveals no evidence of right to left intracardiac shunt (see clip 1). - Prior CC echocardiographic exam performed on 09/25/2023(MARLYN). Major findings are comparable. * * * Final * * * CC [employer] : [id number] [employer] Normal [facility] Erythrocyte distribution wid th Auto (RBC) [Ratio]on 12-18-2023 Erythrocyte distribution width (RBC) [Ratio] 13.5 % 11.5-15.0 [facility] Hematocrit Auto (Bld) [Volum e fraction]on 12-18-2023 Hematocrit (Bld) [Volume fraction] 36.4 % 36.0-46.0 [facility] Hemoglobin [Mass/volume] in Bloodon 12-18-2023 Hemoglobin (Bld) [Mass/Vol] 11.8 g/dL 11.5-15.5 [facility] Laboratory - Chemistry and C hemistry - challengeon 12-18-2023 Calcium [Mass/Vol] 9.4 mg/dL 8.5-10.2 [facility] Chloride [Moles/Vol] 101 mmol/L 97-105 [facility] CO2 [Moles/Vol] 25 mmol/L 22-30 [facility] Creatinine [Mass/Vol] 1.02 mg/dL High 0.58-0.96 [facility] Glucose [Mass/Vol] 129 mg/dL High 74-99 [facility] Comment on above: The [place] Diab[employer] s Association (ADA) provides guidance for cutoff values for fasting glucose and random glucose. The ADA defines fasting as no caloric intake for at least 8 hours. Fasting plasma glucose results between 100 to 125 mg/dL indicate increased risk for diabetes (prediabetes).Fasting plasma glucose results greater than or equal to 126 mg/dL meet the criteria for diagnosis of diabetes. In the absence of unequivocal hyperglycemia, results should be confirmed by repeat testing. In a patient with classic symptoms of hyperglycemia or hyperglycemic crisis, random plasma glucose results greater than or equal to 200 mg/dL meet the criteria for diagnosis of diabetes.Reference: Standards of Medical Care in Diabetes 2016, [place] Diabetes Association. Diabetes Care. 2016.39(Suppl 1). Potassium [Moles/Vol] 3.9 mmol/L 3.7-5.1 [facility] Sodium [Moles/Vol] 138 mmol/L 136-144 [facility] Urea nitrogen [Mass/Vol] 35 mg/dL High 7-21 [facility] Leukocytes [#/volume] correc jonas for nucleated erythrocytes in Blood by Automated counon 12-18-2023 WBC corrected for nucl RBC Auto (Bld) [#/Vol] 8.09 k/uL 3.70-11.00 [facility] MCH Auto (RBC) [Entitic mass ]on 12-18-2023 MCH (RBC) [Entitic mass] 30.6 pg 26.0-34.0 [facility] MCHC Auto (RBC) [Mass/Vol]on 12-18-2023 MCHC (RBC) [Mass/Vol] 32.4 g/dL 30.5-36.0 [facility] MCV Auto (RBC) [Entitic vol] on 12-18-2023 MCV (RBC) [Entitic vol] 94.3 fL 80.0-100.0 [facility] No Panel Informationon 12-17 Estimated GFR (CKD-EPI) 53 mL/min/1.73m??? Low >=60 [facility] Comment on above: Estimated Glomerular Filtration Rate (eGFR) is calculated using the 2020 CKD-EPI creatinine equation. This equation utilizes serum creatinine, sex, and age as parameters. The creatinine assay has traceable calibration to isotope dilution-mass spectrometry. Refer to KDIGO guidelines for clinical interpretation. In patients with unstable renal function, e.g. those with acute kidney injury, the eGFR may not accurately reflect actual GFR. Nucleated RBC Auto (Bld) [#/ Vol]on 12-18-2023 Nucleated RBC (Bld) [#/Vol] 10*3/uL <0.01 [facility] Platelet mean volume Auto (B ld) [Entitic vol]on 12-18-2023 Platelet mean volume (Bld) [Entitic vol] 10.5 fL 9.0-12.7 [facility] Platelets Auto (Bld) [#/Vol] on 12-18-2023 Platelets (Bld) [#/Vol] 157 10*3/uL 150-400 [facility] RBC Auto (Bld) [#/Vol]on RBC (Bld) [#/Vol] 3.86 10*6/uL Low 3.90-5.20 [facility] Serum or plasma anion gap de terminationon 12-18-2023 Anion gap [Moles/Vol] 12 mmol/L 9-18 [facility] No Panel Informationon 12-10 Bedside INR (LAB) 2.9 [facility] Aerobic Cultureon 12-03-2023 Aerobic Culture Result Tab Codes Moderate Normal Skin Latesha 2 Days No Anaerobes Isolated 3 Days Gram Stain Result Rare White Blood Cells No Bacteria Seen PERFORMED BY: [place] [id number] PATHOLOGIST TOPLINE BEADING MACHINE TENDER ARRON [place] [facility] Comment on above: Performed By: #### A ERC #### [facility] [address] Gram stain for investigation of transfusion reactionOrdered By: Melissa Alanis on 12-03-2023 Microscopic observation Gram stain Nom (Unsp spec) No Anaerobes Isolated 3 Days [facility] Fernando 12-03-2023 L Specimen: [id number] Received: 12/04/23 Status: SOUT Resarika Num: [id number] Spec Type: Surgical Subm Dr: Melissa Alanis APRN Tissues: A Skin-Other than Cyst, tag, debridement or plastic repair (LT LOWER POST LEG) Procedures: HE, Gross/Micro L4 Age/ Patient Sex Location Account Attending Physician Celia Chopra 88/F [id number] Melissa Alanis APRN SPEC NUM: [id number] RECD: 12/04/23 STATUS: CHELSY CHENEY NUM: [id number] MECCA: 12/03/[address]: Melissa Alanis APRN ENTERED: 12/04/[address]: SPEC TYPE: Surgical DEPT: S ORDERED: HE, Gross/Micro L4 ORDERED: HE, Gross/Micro L4 Supplemental Report Addendum 1 Entered: 01/09/24 Supplemental for findings of consultation report from [facility]: -Superficial fragments of fibrinopurulent ulcer base, dermal acute inflammation, and vasculopathy. See comment Note: -Please also see entire report on file for detailed description Addendum Signed (signature on file) Annemarie Welsh MD 01/09/24 0918 ---- Pathological Diagnosis Skin of left lower posterior leg, shave biopsy: - Superficial, scant cutaneous specimen featuring fibrinopurulent inflammatory ulcer exudate, sparse, benign squamous epithelium and granulation tissue with variably thrombosed small blood vessels. - Accompanying detached piece of laminated keratin. ---- Specimen: [id number] Received: 12/04/23 Status: CHELSY Mottsarika Num: [id number] Spec Type: Surgical Subm Dr: Melissa Alanis APRN Tissues: A Skin-Other than Cyst, tag, debridement or plastic repair (LT LOWER POST LEG) Procedures: Tiburcio RAMÍREZ ---- Patient: Celia Chopra [id number] (Continued) ---- Specimen: [id number] Received: 12/04/23 (Continued) Pathological Diagnosis (Continued) Signed (signature on file) Emil Kruse MD 12/05/23 1104 ---- Specimen: [id number] Received: 12/04/23 Status: CHELSY Cheney Num: [id number] Spec Type: Surgical Subm Dr: Melissa Alanis APRN Tissues: A Skin-Other than Cyst, tag, debridement or plastic repair (LT LOWER POST LEG) Procedures: Tiburcio RAMÍREZ L4 ---- Patient: Celia Chopra [id number] (Continued) ---- Specimen: [id number] Received: 12/04/23 (Continued) Pathological Diagnosis (Continued) - No malignancy. Clinical Information Nonhealing wound, history of melanoma Gross Description Received in formalin labeled with the patient's name, date of and left lower posterior leg is a 0.3 x 0.2 x 0.1 cm dwyer-white to brown tissue. Entirely submitted in one cassette labeled A1. CPT Codes 72334 ---- ---- Specimen: [id number] Received: 12/04/23 Status: CHELSY Cheney Num: [id number] Spec Type: Surgical Subm Dr: Melissa Alanis APRN Tissues: A Skin-Other than Cyst, tag, debridement or plastic repair (LT LOWER POST LEG) Procedures: DESIREE, Gross/Micro L4 ---- Patient: Celia Chopra Jesse [id number] (Continued) ---- Signed (signature on file) Emil Kruse MD 12/05/23 [address] [place] [facility] CNPN Telephone (CATHMN) CELIA CHOPRA Jesse ([id number]) 1935 F Date Time Provider Department 12/02/23 BEVERLY POLANCO During your visit today, we recorded the following information about you: Stephenie Trevino 12/02/2023 9:54 AM Signed Patient called wanting to touch base. Pt has questions re procedure and wanted to inform you her wound hasn't closed yet but it is being treated. Pt asked for a call to discuss [phone] Ed Barlow, HOSPITAL CHIEF FINANCIAL OFFICER.[facility] 12/02/2023 10:08 AM Signed Spoke with patient who states no active infection--not on any antibiotics. Instructed to stop warfarin 3 days prior to cath and to contact her warfarin clinic for further instructions. This plan has been communicated with the patient who verbalized understanding and is in agreement. Ed Barlow APRN.FILM HISTORIAN Allergies As of Date: 12/02/2023 Noted Allergy Reaction IODINE 09/18/2021 14 - Other: See Comments Comments: Per pt. was used at the dentist and she developed redness of face. This was quite awhile ago. PERCODAN (OXYCODONE-ASPIRIN) 09/18/2021 14 - Other: See Comments Comments: Per pt caused hallucinations. Date Reviewed: 09/25/2023 Reviewed by: Gaby Keating, RN - Fully Assessed Reason for Visit: Appointment [186] Prescriptions as of 12/02/2023 - diphenhydrAMINE (BENADRYL) 50 mg capsule Take 1 capsule by mouth as directed for 1 dose. one (1) hour prior to exam. - Amoxicillin 500 mg tablet Take 500 mg by mouth two times a day. - spironolactone (ALDACTONE) 25 mg tablet Take 0.5 tablets by mouth once daily. - sodium chloride 0.9 %, flush, (BD POSIFLUSH) syringe Inject 2-10 mL intravenously as directed. For Echo procedure - potassium chloride ER (K-DUR, KLOR-CON) 10 mEq tablet Take 1 tablet by mouth once daily. - metoprolol tartrate, short acting, (LOPRESSOR) 50 mg tablet Take 1 tablet by mouth twice daily. - Docusate Sodium 250 mg capsule Take 250 mg by mouth once daily. - atorvastatin (LIPITOR) 20 mg tablet Take 20 mg by mouth daily at bedtime. - bumetanide (BUMEX) 2 mg tablet Take 2 mg by mouth once daily. - warfarin (COUMADIN) 2 mg tablet - zolpidem (AMBIEN) 10 mg Take 10 mg by mouth daily at bedtime. - famotidine (PEPCID) 10 mg tablet Take 10 mg by mouth twice daily. - multivit-min/iron/foli c/lutein (CENTRUM SILVER WOMEN ORAL) Take by mouth. 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] 12/11/2021 Severe tricuspid regurgitation [I07.1] 12/11/2021 Primary hypertension [I10] 12/11/2021 Atrial fibrillation, chronic (HCC) [I48.20] 12/11/2021 Acute on chronic diastolic CHF (congestive hear*12/12/2021 CKD (chronic kidney disease) [N18.9] 12/12/2021 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 Permanent atrial fibrillation (HCC) [I48.21] 08/06/2023 Non-ischemic cardiomyopathy (HCC) [I42.8] 08/06/2023 Nonrheumatic tricuspid valve regurgitation [I36*08/06/2023 Other specified peripheral vascular diseases (H*09/25/2023 Encounter Status:Closed by STEPHENIE TREVINO on 12/02/23 Normal [facility] No Panel Informationon 11-25 Bedside INR (LAB) 2.1 [facility] Activated partial thrombopla stin time (aPTT) in platelet poor plasma by coagulation aOrdered By: Jean Carlos Jimenez on 11-18-2023 aPTT Coag (PPP) [Time] 31.6 s 25.1-36.5 [facility] Comment on above: A hematocrit value g reater than 55% may lead to inaccurate results in coagulation testing. Patients having hematocrit values >55% require a special collection tube for coagulation studies. Please contact the laboratory at [phone] for redraw instructions. Automated basophil %Ordered By: Jean Carlos Jimenez on 11-18-2023 Basophils/100 WBC (Bld) 1.1 % Normal . [facility] Comment on above: Performed By: #### C BC #### [address] Automated basophil countOrde red By: Jean Carlos Jimenez on 11-18-2023 Basophils (Bld) [#/Vol] 0.1 10*3/uL Normal 0.0-0.2 [facility] Comment on above: Result Comment: PERF ORMED BY: [place] [id number] PATHOLOGIST TOPLINE BEADING MACHINE TENDER ARRON MEEKS M.D. Performed By: #### C BC #### [address] Automated blood monocyte cou ntOrdered By: Jean Carlos Jimenez on 11-18-2023 Monocytes (Bld) [#/Vol] 0.9 10*3/uL High 0.0-0.8 [facility] Comment on above: Performed By: #### C BC #### [address] Automated eosinophil %Ordere d By: Jean Carlos Jimenez on 11-18-2023 Eosinophils/100 WBC (Bld) 2.3 % Normal . [facility] Comment on above: Performed By: #### C BC #### [address] Automated eosinophil countOr dered By: Jean Carlos Jimenez on 11-18-2023 Eosinophils (Bld) [#/Vol] 0.2 10*3/uL Normal 0.0-0.45 [facility] Comment on above: Performed By: #### C BC #### [address] Automated monocyte %Ordered By: Jean Carlos Jimenez on 11-18-2023 Monocytes/100 WBC (Bld) 9.9 % Normal . [facility] Comment on above: Performed By: #### C BC #### [address] Automated neutrophil %Ordere d By: Jean Carlos Jimenez on 11-18-2023 Neutrophils/100 WBC (Bld) 75.6 % Normal . [facility] Comment on above: Performed By: #### C BC #### [address] Complete Blood Count Auto Di ffon 11-18-2023 Mean Corpuscular HGB Conc 32.9 g/dL Normal 32.0-35.0 [facility] Comment on above: Performed By: #### C BC #### [address] NRBC% 0.1 /100{WBC} Normal 0-0.5 [facility] Comment on above: Performed By: #### C BC #### [address] Erythrocyte distribution wid th [Ratio] by Automated countOrdered By: Jean Carlos Jimenez on 11-18-2023 Erythrocyte distribution width (RBC) [Ratio] 14.4 % Normal 11.9-15.3 [facility] Comment on above: Performed By: #### C BC #### [address] Erythrocytes [#/volume] in B lood by Automated countOrdered By: Jean Carlos Jimenez on 11-18-2023 RBC (Bld) [#/Vol] 4.13 10*6/uL Normal 3.60-5.00 [facility] Comment on above: Performed By: #### C BC #### [address] Hematocrit [Volume Fraction] of Blood by Automated countOrdered By: Jean Carlos Jimenez on 11-18-2023 Hematocrit (Bld) [Volume fraction] 38.3 % Normal 34.0-46.4 [facility] Comment on above: Performed By: #### C BC #### [address] Hemoglobin [Mass/volume] in BloodOrdered By: Jean Carlos Jimenez on 11-18-2023 Hemoglobin (Bld) [Mass/Vol] 12.6 g/dL Normal 11.8-15.4 [facility] Comment on above: Performed By: #### C BC #### [facility] [address] [place], [place] [id number] [facility] INR in Platelet poor plasma by Coagulation assayOrdered By: Jean Carlos Jimenez on 11-18-2023 INR Coag (PPP) [Relative time] 1.3 {INR} Normal [facility] Comment on above: INR Therapeutic Rang e A) Pre- and Peroperative OAT started two weeks before surgery. NOT HIP SURGERY: 1.5 - 2.5 HIP SURGERY: 2 - 3B) Primary and secondary prevention of venous THROMBOSIS: 2 - 3C) Active venous thrombosis, pulmonary embolismand prevention of recurrent venous thrombosis: 2 - 3D) Prevention of arterial thromboembolismincluding patients with mechanical heart valves: 3 - 4.5 Result Comment: INR Therapeutic Range A) Pre- and Peroperative OAT started two weeks before surgery. NOT HIP SURGERY: 1.5 - 2.5 HIP SURGERY: 2 - 3 B) Primary and secondary prevention of venous THROMBOSIS: 2 - 3 C) Active venous thrombosis, pulmonary embolism and prevention of recurrent venous thrombosis: 2 - 3 D) Prevention of arterial thromboembolism including patients with mechanical heart valves: 3 - 4.5 Performed By: #### P TT, PT #### [facility] [address] [place] [address] [facility] Fernando 11-18-2023 L Specimen: [id number] Received: 11/18/23 Status: CHELSY Cheney Num: [id number] Spec Type: Surgical Subm Dr: Jean Carlos Jimenez MD Tissues: A Colon Biopsy (SIGMOID) Procedures: HE/2, Gross/Micro L4 Age/ Patient Sex Location Account Attending Physician Celia Chopra 88/F [id number] Jean Carlos Jimenez MD SPEC NUM: [id number] RECD: 11/18/23 STATUS: CHELSY CHENEY NUM: [id number] MECCA: 11/18/[address]: Jean Carlos Jimenez MD ENTERED: 11/18/[address] [facility] [address]: SPEC TYPE: Surgical DEPT: S ORDERED: HE/2, Gross/Micro L4 ORDERED: HE/2, Gross/Micro L4 Pathological Diagnosis Sigmoid biopsy: -Colonic mucosa with mild chronic inflammation in the superficial lamina propria and with minor associated edema and congestion, occasional eosinophils, and only very rare or minimal PMNs -In addition, mild disruption of the surface epithelium with some intermixed degenerated epithelial cells are also noted, per mildly associated chronic erosion -Overall findings are compatible with mild colonopathy and/or mild nonspecific chronic colitis, and the sigmoid diverticulitis associated colitis as well -Negative for malignancy or glandular dysplasia Clinical Information Painless rectal bleeding Gross Description Received in formalin labeled with the patient's name, date of and sigmoid scad biopsy is one dwyer tissue measuring 0.5 x 0.1 x 0.1 cm. Entirely submitted in one cassette labeled A1. ---- Specimen: [id number] Received: 11/18/23 Status: CHELSY Cheney Num: [id number] Spec Type: Surgical Subm Dr: Jean Carlos Jimenez MD Tissues: A Colon Biopsy (SIGMOID) Procedures: HE/2, Gross/Micro L4 ---- Patient: Celia Chopra Jesse [id number] (Continued) ---- Specimen: [id number] Received: 11/18/23 (Continued) Signed (signature on file) Annemarie Welsh MD 11/20/23 1753 ---- Specimen: [id number] Received: 11/18/23 Status: CHELSY Cheney Num: [id number] Spec Type: Surgical Subm Dr: Jean Carlos Jimenez MD Tissues: A Colon Biopsy (SIGMOID) Procedures: HE/2, Gross/Micro L4 ---- Patient: Celia Chopra [id number] (Continued) ---- Specimen: [id number] Received: 11/18/23 (Continued) CPT Codes 03971 ---- ---- Specimen: [id number] Received: 11/18/23 Status: CHELSY Cheney Num: [id number] Spec Type: Surgical Subm Dr: Jean Carlos Jimenez MD Tissues: A Colon Biopsy (SIGMOID) Procedures: HE/2, Gross/Micro L4 ---- Patient: Gabrielarosa elenaCelia [id number] (Continued) ---- Signed (signature on file) Annemarie Welsh MD 11/20/23 175 Normal [facility] Leukocytes [#/volume] correc jonas for nucleated erythrocytes in Blood by Automated counOrdered By: Jean Carlos Jimenez on 11-18-2023 WBC corrected for nucl RBC Auto (Bld) [#/Vol] 8.8 10*3/uL 3.8-11.6 [facility] Leukocytes [#/volume] in Blo od by Automated countOrdered By: Jean Carlos Jimenez on 11-18-2023 WBC (Bld) [#/Vol] 8.8 10*3/uL Normal 3.8-11.6 [facility] Comment on above: Performed By: #### C BC #### [address] Lymphocytes [#/volume] in Bl ood by Automated countOrdered By: Jean Carlos Jimenez on 11-18-2023 Lymphocytes (Bld) [#/Vol] 1.0 10*3/uL Normal 1.00-4.8 [facility] Comment on above: Performed By: #### C BC #### [address] Lymphocytes/100 leukocytes i n Blood by Automated countOrdered By: Jean Carlos Jimenez on 11-18-2023 Lymphocytes/100 WBC (Bld) 11.1 % Normal . [facility] Comment on above: Performed By: #### C BC #### [address] MCH [Entitic mass] by Automa jonas countOrdered By: Jean Carlos Jimenez on 11-18-2023 MCH (RBC) [Entitic mass] 30.5 pg Normal 24.7-34.3 [facility] Comment on above: Performed By: #### C BC #### [address] MCHC Auto (RBC) [Mass/Vol]Or dered By: Jean Carlos Jimenez on 11-18-2023 MCHC (RBC) [Mass/Vol] 32.9 g/dL 32.0-35.0 [facility] MCV [Entitic volume] by Auto mated countOrdered By: Jean Carlos Jimenez on 11-18-2023 MCV (RBC) [Entitic vol] 92.8 fL Normal 80-100 [facility] Comment on above: Performed By: #### C BC #### [address] Neutrophils [#/volume] in Bl ood by Automated countOrdered By: Jean Carlos Jimenez on 11-18-2023 Neutrophils (Bld) [#/Vol] 6.7 10*3/uL Normal 1.8-7.7 [facility] Comment on above: Performed By: #### C BC #### [address] Nucleated erythrocytes [Pres ence] in Blood by Automated countOrdered By: Jean Carlos Jimenez on 11-18-2023 Nucleated RBC Auto Ql (Bld) 0.1 /100{WBC} 0-0.5 [facility] Partial Thromboplastin Timeo n 11-18-2023 aPTT Coag (Bld) [Time] 31.6 s Normal 25.1-36.5 [facility] Comment on above: Result Comment: A he matocrit value greater than 55% may lead to inaccurate results in coagulation testing. Patients having hematocrit values >55% require a special collection tube for coagulation studies. Please contact the laboratory at [phone] for redraw instructions. PERFORMED BY: [place] [id number] PATHOLOGIST TOPLINE BEADING MACHINE TENDER ARRON MEEKS M.D. Performed By: #### P TT, PT #### [address] Platelet mean volume [Entiti c volume] in Blood by Automated countOrdered By: Jean Carlos Jimenez on 11-18-2023 Platelet mean volume (Bld) [Entitic vol] 8.9 fL Normal 6.3-10.7 [facility] Comment on above: Performed By: #### C BC #### [address] Platelets [#/volume] in Bloo d by Automated countOrdered By: Jean Carlos Jimenez on 11-18-2023 Platelets (Bld) [#/Vol] 185 10*3/uL Normal 150-450 [facility] Comment on above: Performed By: #### C BC #### [address] Prothrombin time (PT)Ordered By: Jean Carlos Jimenez on 11-18-2023 PT Coag (PPP) [Time] 14.9 s High 9.0-12.9 [facility] Comment on above: A hematocrit value g reater than 55% may lead to inaccurate results in coagulation testing. Patients having hematocrit values >55% require a special collection tube for coagulation studies. Please contact the laboratory at [phone] for redraw instructions. Result Comment: A he matocrit value greater than 55% may lead to inaccurate results in coagulation testing. Patients having hematocrit values >55% require a special collection tube for coagulation studies. Please contact the laboratory at [phone] for redraw instructions. Performed By: #### P TT, PT #### [address] [address] [facility] No Panel Informationon 11-10 Bedside INR (LAB) 3.0 [facility] Aerobic Cultureon 11-03-2023 Aerobic Culture No Growth 2 Days ORGANISM: Bacteroides fragilis (O:BACFRA) Comments Sent to [facility] for Sensitivity Testing Quantity of Growth Rare Growth Please see scanned report located in the EMR under the Diagnostics tab -> Scanned Lab Reports -> Laboratory. Gram Stain Result No Bacteria Seen PERFORMED BY: [place] [id number] PATHOLOGIST TOPLINE BEADING MACHINE TENDER ARRON MEEKS M.D. Normal [facility] Comment on above: Performed By: #### A ERC #### [address] Bacterial susceptibility tong el DONIS (Isol)on 11-03-2023 Microorganism identified Cx Nom (Unsp spec) [id number] Abnormal [facility] Comment on above: Order Comment: Speci men Type: MICROBIAL ISOLATEOrdering Facility: [facility] Address: [address] [place] [id number] Result Comment: Bact eroides fragilis group Specifically Bacteroides fragilis as identified by client. Bacteroides spp. are intrinsically resistant to ampicillin, penicillin, and aminoglycosi Performed By: #### 5 0545-3, 18751-1 ####[facility] LABCLIA [id number] [id number] [address] [place] Bacterial susceptibility tong el Strip (Isol)on 11-03-2023 Ampicillin+Sulbactam [Susc] 0.5 Susceptible Susceptible <=8 , Intermediate >8 , Resistant >16 [facility] Comment on above: Order Comment: Order ing Facility: [facility] Address: [address] [place] [address] Performed By: #### 5 0545-3, 00958-0 ####[facility] LABCLIA [id number] [address] [place] Ertapenem DONIS [Susc] 0.125 Susceptible Suscept ible <=4 , Intermediate >4 , Resistant >8 [facility] Comment on above: Order Comment: Order ing Facility: [facility] Address: [address] [place] [address] Performed By: #### 5 0545-3, 02858-0 ####[facility] LABCLIA [id number] [address] [place] metroNIDAZOLE [Susc] 0.25 Susceptible [facility] Comment on above: Order Comment: Order ing Facility: [facility] Address: [address] [place] [address] Performed By: #### 5 0545-3, 21140-3 ####[facility] LABCLIA [id number] [address] [place] Gram stain for investigation of transfusion reactionOrdered By: Melissa Alanis on 11-03-2023 Microscopic observation Gram stain Nom (Unsp spec) Bacteroides fragilis Abnormal [facility] No Panel Informationon 10-30 Bedside INR (LAB) 3.4 [facility] CNPNon 10-23-2023 CNPN Telephone (CARDMN) CELIA CHOPRA ([id number]) 1935 F Date Time Provider Department 10/23/23 SHAMA BAGLEY CARDMN During your visit today, we recorded the following information about you: Shaam Prescott 10/23/2023 4:04 PM Signed Patient called but there was no answer. Detailed VM left to call us back re ASD closure/ cath procedure Shama Allergies As of Date: 10/23/2023 Noted Allergy Reaction IODINE 09/18/2021 14 - Other: See Comments Comments: Per pt. was used at the dentist and she developed redness of face. This was quite awhile ago. PERCODAN (OXYCODONE-ASPIRIN) 09/18/2021 14 - Other: See Comments Comments: Per pt caused hallucinations. Date Reviewed: 09/25/2023 Reviewed by: Gaby Keating RN - Fully Assessed Reason for Visit: Appointment [186] Prescriptions as of 10/23/2023 - diphenhydrAMINE (BENADRYL) 50 mg capsule Take 1 capsule by mouth as directed for 1 dose. one (1) hour prior to exam. - Amoxicillin 500 mg tablet Take 500 mg by mouth two times a day. - spironolactone (ALDACTONE) 25 mg tablet Take 0.5 tablets by mouth once daily. - sodium chloride 0.9 %, flush, (BD POSIFLUSH) syringe Inject 2-10 mL intravenously as directed. For Echo procedure - potassium chloride ER (K-DUR, KLOR-CON) 10 mEq tablet Take 1 tablet by mouth once daily. - metoprolol tartrate, short acting, (LOPRESSOR) 50 mg tablet Take 1 tablet by mouth twice daily. - Docusate Sodium 250 mg capsule Take 250 mg by mouth once daily. - atorvastatin (LIPITOR) 20 mg tablet Take 20 mg by mouth daily at bedtime. - bumetanide (BUMEX) 2 mg tablet Take 2 mg by mouth once daily. - warfarin (COUMADIN) 2 mg tablet - zolpidem (AMBIEN) 10 mg Take 10 mg by mouth daily at bedtime. - famotidine (PEPCID) 10 mg tablet Take 10 mg by mouth twice daily. - multivit-min/iron/foli c/lutein (CENTRUM SILVER WOMEN ORAL) Take by mouth. 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] 12/11/2021 Severe tricuspid regurgitation [I07.1] 12/11/2021 Primary hypertension [I10] 12/11/2021 Atrial fibrillation, chronic (HCC) [I48.20] 12/11/2021 Acute on chronic diastolic CHF (congestive hear*12/12/2021 CKD (chronic kidney disease) [N18.9] 12/12/2021 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 Permanent atrial fibrillation (HCC) [I48.21] 08/06/2023 Non-ischemic cardiomyopathy (HCC) [I42.8] 08/06/2023 Nonrheumatic tricuspid valve regurgitation [I36*08/06/2023 Other specified peripheral vascular diseases (H*09/25/2023 Encounter Status:Closed by SHAMA PRESCOTT on 10/23/23 [facility] Sandi 10-20-2023 CNPN Telephone (CATHMN) CELIA CHOPRA ([id number]) 1935 F Date Time Provider Department 10/20/23 ED BARLOW During your visit today, we recorded the following information about you: Ed Barlow APRN.CNP 10/20/2023 10:58 AM Signed Spoke to the patient over the phone She is working to get a colonoscopy appointment. She will call the office to let me know when it is scheduled so that I can anticipate it. For now we will can the procedure and arrange once she has been cleared from a GI standpoint Ed Barlow APRN.CNP Allergies As of Date: 10/20/2023 Noted Allergy Reaction IODINE 09/18/2021 14 - Other: See Comments Comments: Per pt. was used at the dentist and she developed redness of face. This was quite awhile ago. PERCODAN (OXYCODONE-ASPIRIN) 09/18/2021 14 - Other: See Comments Comments: Per pt caused hallucinations. 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 one (1) hour prior to exam. - Amoxicillin 500 mg tablet Take 500 mg by mouth two times a day. - spironolactone (ALDACTONE) 25 mg tablet Take 0.5 tablets by mouth once daily. - sodium chloride 0.9 %, flush, (BD POSIFLUSH) syringe Inject 2-10 mL intravenously as directed. For Echo procedure - potassium chloride ER (K-DUR, KLOR-CON) 10 mEq tablet Take 1 tablet by mouth once daily. - metoprolol tartrate, short acting, (LOPRESSOR) 50 mg tablet Take 1 tablet by mouth twice daily. - Docusate Sodium 250 mg capsule Take 250 mg by mouth once daily. - atorvastatin (LIPITOR) 20 mg tablet Take 20 mg by mouth daily at bedtime. - bumetanide (BUMEX) 2 mg tablet Take 2 mg by mouth once daily. - warfarin (COUMADIN) 2 mg tablet - zolpidem (AMBIEN) 10 mg Take 10 mg by mouth daily at bedtime. - famotidine (PEPCID) 10 mg tablet Take 10 mg by mouth twice daily. - multivit-min/iron/foli c/lutein (CENTRUM SILVER WOMEN ORAL) Take by mouth. 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] 12/11/2021 Severe tricuspid regurgitation [I07.1] 12/11/2021 Primary hypertension [I10] 12/11/2021 Atrial fibrillation, chronic (HCC) [I48.20] 12/11/2021 Acute on chronic diastolic CHF (congestive hear*12/12/2021 CKD (chronic kidney disease) [N18.9] 12/12/2021 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 Permanent atrial fibrillation (HCC) [I48.21] 08/06/2023 Non-ischemic cardiomyopathy (HCC) [I42.8] 08/06/2023 Nonrheumatic tricuspid valve regurgitation [I36*08/06/2023 Other specified peripheral vascular diseases (H*09/25/2023 Encounter Status:Closed by ED BARLOW on 10/20/23 [facility] Sandi 10-15-2023 ANTONIO Telephone (CATHMN) CELIA CHOPRA ([id number]) 1935 F Date Time Provider Department 10/15/23 BEVERLY POLANCO During your visit today, we recorded the following information about you: Elsy RomanoAG 10/15/2023 9:14 AM Signed Pt called back and said she would like to proceed with the ASD closure tomorrow, however she has a Colonoscopy scheduled at 1:45 today, to clear her for the procedure tomorrow, due to the rectal bleeding. I advised that we will keep her on the schedule tomorrow and that if after she has the colonoscopy, and they tell her she cannot have the ASD tomorrow, to call the office and we will cancel it. She wanted to be sure if they okay her from the colonoscopy, that it's still okay for her to come to the ASD closure. Regis Rajput APRN.FILM HISTORIAN 10/15/2023 10:00 AM Signed Call to patient she will need to be rescheduled for her ASD closure Please reschedule with Dr. Polanco She will update the office with the results Allergies As of Date: 10/15/2023 Noted Allergy Reaction IODINE 09/18/2021 14 - Other: See Comments Comments: Per pt. was used at the dentist and she developed redness of face. This was quite awhile ago. PERCODAN (OXYCODONE-ASPIRIN) 09/18/2021 14 - Other: See Comments Comments: Per pt caused hallucinations. Date Reviewed: 09/25/2023 Reviewed by: Gaby Keating, QUENTIN - Fully Assessed Reason for Visit: Patient Update [1234] Prescriptions as of 10/15/2023 - diphenhydrAMINE (BENADRYL) 50 mg capsule Take 1 capsule by mouth as directed for 1 dose. one (1) hour prior to exam. - Amoxicillin 500 mg tablet Take 500 mg by mouth two times a day. - spironolactone (ALDACTONE) 25 mg tablet Take 0.5 tablets by mouth once daily. - sodium chloride 0.9 %, flush, (BD POSIFLUSH) syringe Inject 2-10 mL intravenously as directed. For Echo procedure - potassium chloride ER (K-DUR, KLOR-CON) 10 mEq tablet Take 1 tablet by mouth once daily. - metoprolol tartrate, short acting, (LOPRESSOR) 50 mg tablet Take 1 tablet by mouth twice daily. - Docusate Sodium 250 mg capsule Take 250 mg by mouth once daily. - atorvastatin (LIPITOR) 20 mg tablet Take 20 mg by mouth daily at bedtime. - bumetanide (BUMEX) 2 mg tablet Take 2 mg by mouth once daily. - warfarin (COUMADIN) 2 mg tablet - zolpidem (AMBIEN) 10 mg Take 10 mg by mouth daily at bedtime. - famotidine (PEPCID) 10 mg tablet Take 10 mg by mouth twice daily. - multivit-min/iron/foli c/lutein (CENTRUM SILVER WOMEN ORAL) Take by mouth. 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] 12/11/2021 Severe tricuspid regurgitation [I07.1] 12/11/2021 Primary hypertension [I10] 12/11/2021 Atrial fibrillation, chronic (HCC) [I48.20] 12/11/2021 Acute on chronic diastolic CHF (congestive hear*12/12/2021 CKD (chronic kidney disease) [N18.9] 12/12/2021 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 Permanent atrial fibrillation (HCC) [I48.21] 08/06/2023 Non-ischemic cardiomyopathy (HCC) [I42.8] 08/06/2023 Nonrheumatic tricuspid valve regurgitation [I36*08/06/2023 Other specified peripheral vascular diseases (H*09/25/2023 Encounter Status:Closed by REGIS RAJPUT on 10/15/23 [facility] CNPN Telephone (CATHMN) CELIA CHOPRA ([id number]) 1935 F Date Time Provider Department 10/15/23 PAVEL SYED During your visit today, we recorded the following information about you: Elsy Romano HUC 10/15/2023 10:38 AM Signed Pt called back and would like to speak with Regis regarding why the procedure has been cancelled and when can she reschedule the procedure? She thought she just needed to be cleared by GI doctor doing her colonoscopy. She is requesting a call back kashmir please [phone] Regis Rajput APRN.FILM HISTORIAN 10/16/2023 3:45 PM Signed Patient rescheduled from the office Allergies As of Date: 10/15/2023 Noted Allergy Reaction IODINE 09/18/2021 14 - Other: See Comments Comments: Per pt. was used at the dentist and she developed redness of face. This was quite awhile ago. PERCODAN (OXYCODONE-ASPIRIN) 09/18/2021 14 - Other: See Comments Comments: Per pt caused hallucinations. Date Reviewed: 09/25/2023 Reviewed by: Gaby Keating, RN - Fully Assessed Reason for Visit: Patient Update [1234] Prescriptions as of 10/16/2023 - diphenhydrAMINE (BENADRYL) 50 mg capsule Take 1 capsule by mouth as directed for 1 dose. one (1) hour prior to exam. - Amoxicillin 500 mg tablet Take 500 mg by mouth two times a day. - spironolactone (ALDACTONE) 25 mg tablet Take 0.5 tablets by mouth once daily. - sodium chloride 0.9 %, flush, (BD POSIFLUSH) syringe Inject 2-10 mL intravenously as directed. For Echo procedure - potassium chloride ER (K-DUR, KLOR-CON) 10 mEq tablet Take 1 tablet by mouth once daily. - metoprolol tartrate, short acting, (LOPRESSOR) 50 mg tablet Take 1 tablet by mouth twice daily. - Docusate Sodium 250 mg capsule Take 250 mg by mouth once daily. - atorvastatin (LIPITOR) 20 mg tablet Take 20 mg by mouth daily at bedtime. - bumetanide (BUMEX) 2 mg tablet Take 2 mg by mouth once daily. - warfarin (COUMADIN) 2 mg tablet - zolpidem (AMBIEN) 10 mg Take 10 mg by mouth daily at bedtime. - famotidine (PEPCID) 10 mg tablet Take 10 mg by mouth twice daily. - multivit-min/iron/foli c/lutein (CENTRUM SILVER WOMEN ORAL) Take by mouth. 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] 12/11/2021 Severe tricuspid regurgitation [I07.1] 12/11/2021 Primary hypertension [I10] 12/11/2021 Atrial fibrillation, chronic (HCC) [I48.20] 12/11/2021 Acute on chronic diastolic CHF (congestive hear*12/12/2021 CKD (chronic kidney disease) [N18.9] 12/12/2021 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 Permanent atrial fibrillation (HCC) [I48.21] 08/06/2023 Non-ischemic cardiomyopathy (HCC) [I42.8] 08/06/2023 Nonrheumatic tricuspid valve regurgitation [I36*08/06/2023 Other specified peripheral vascular diseases (H*09/25/2023 Encounter Status:Closed by REGIS RAJPUT on 10/16/23 Normal [facility] Activated partial thrombopla stin time (aPTT) in platelet poor plasma by coagulation aOrdered By: PROVIDER TEMP on 10-14-2023 aPTT Coag (PPP) [Time] 38.8 s 25.1-36.5 [facility] Comment on above: A hematocrit value g reater than 55% may lead to inaccurate results in coagulation testing. Patients having hematocrit values >55% require a special collection tube for coagulation studies. Please contact the laboratory at [phone] for redraw instructions. Alanine aminotransferase [En zymatic activity/volume] in Serum or PlasmaOrdered By: PROVIDER TEMP on 10-14-2023 ALT [Catalytic activity/Vol] 10 U/L Normal 7-52 [facility] Comment on above: Performed By: #### P T, CBC, CMP, PTT #### [facility] [address] [place] [address] [place] Albumin [Mass/volume] in Ser um or Plasma by Bromocresol green (BCG) dye binding methoOrdered By: PROVIDER TEMP on 10-14-2023 Albumin BCG dye [Mass/Vol] 4.2 g/dL 3.5-5.7 [facility] Alkaline phosphatase [Enzyma tic activity/volume] in Serum or PlasmaOrdered By: PROVIDER TEMP on 10-14-2023 ALP [Catalytic activity/Vol] 100 U/L Normal 34-104 [facility] Comment on above: Performed By: #### P T, CBC, CMP, PTT #### [facility] [address] [place] [id number] [place] Aspartate aminotransferase [ Enzymatic activity/volume] in Serum or PlasmaOrdered By: PROVIDER TEMP on 10-14-2023 AST [Catalytic activity/Vol] 21 U/L Normal 13-39 [facility] Comment on above: Performed By: #### P T, CBC, CMP, PTT #### [address] Automated basophil %Ordered By: PROVIDER TEMP on 10-14-2023 Basophils/100 WBC (Bld) 1.2 % Normal . [facility] Comment on above: Performed By: #### P T, CBC, CMP, PTT #### [address] Automated basophil countOrde red By: PROVIDER TEMP on 10-14-2023 Basophils (Bld) [#/Vol] 0.1 10*3/uL Normal 0.0-0.2 [facility] Comment on above: Result Comment: PERF ORMED BY: [place] [id number] PATHOLOGIST TOPLINE BEADING MACHINE TENDER ARRON MEEKS M.D. Performed By: #### P T, CBC, CMP, PTT #### [address] Automated blood monocyte cou ntOrdered By: PROVIDER TEMP on 10-14-2023 Monocytes (Bld) [#/Vol] 0.8 10*3/uL Normal 0.0-0.8 [facility] Comment on above: Performed By: #### P T, CBC, CMP, PTT #### [address] Automated eosinophil %Ordere d By: PROVIDER TEMP on 10-14-2023 Eosinophils/100 WBC (Bld) 4.3 % Normal . [facility] Comment on above: Performed By: #### P T, CBC, CMP, PTT #### [address] Automated eosinophil countOr dered By: PROVIDER TEMP on 10-14-2023 Eosinophils (Bld) [#/Vol] 0.3 10*3/uL Normal 0.0-0.45 [facility] Comment on above: Performed By: #### P T, CBC, CMP, PTT #### [address] Automated monocyte %Ordered By: PROVIDER TEMP on 10-14-2023 Monocytes/100 WBC (Bld) 11.5 % Normal . [facility] Comment on above: Performed By: #### P T, CBC, CMP, PTT #### [address] Automated neutrophil %Ordere d By: PROVIDER TEMP on 10-14-2023 Neutrophils/100 WBC (Bld) 65.3 % Normal . [facility] Comment on above: Performed By: #### P T, CBC, CMP, PTT #### [address] Bilirubin.total [Mass/volume ] in Serum or PlasmaOrdered By: PROVIDER TEMP on 10-14-2023 Bilirubin [Mass/Vol] 1.1 mg/dL High 0.3-1.0 [facility] Comment on above: Performed By: #### P T, CBC, CMP, PTT #### [address] Calcium [Mass/volume] in Ser um or PlasmaOrdered By: PROVIDER TEMP on 10-14-2023 Calcium [Mass/Vol] 9.7 mg/dL Normal 8.6-10.3 [facility] Comment on above: Performed By: #### P T, CBC, CMP, PTT #### [address] Carbon dioxide, total [Moles /volume] in Serum or PlasmaOrdered By: PROVIDER TEMP on 10-14-2023 CO2 [Moles/Vol] 30.5 mmol/L Normal 21.0-31.0 [facility] Comment on above: Performed By: #### P T, CBC, CMP, PTT #### [place] [address] [place] Chloride [Moles/volume] in S angelina or PlasmaOrdered By: PROVIDER TEMP on 10-14-2023 Chloride [Moles/Vol] 98 mmol/L Normal 98-107 [facility] Comment on above: Performed By: #### P T, CBC, CMP, PTT #### [address] Complete Blood Count Auto Di ffon 10-14-2023 Mean Corpuscular HGB Conc 34.1 g/dL Normal 32.0-35.0 [facility] Comment on above: Performed By: #### P T, CBC, CMP, PTT #### [address] Monocytes/100 WBC (Bld) 20.20 % High 0.00-20.00 [facility] Comment on above: Result Comment: For adults in ED, MDW > 20.0 may be associated with a higher risk of sepsis during the first 12 hrs of hospital admission Performed By: #### P T, CBC, CMP, PTT #### [address] NRBC% 0.1 /100{WBC} Normal 0-0.5 [facility] Comment on above: Performed By: #### P T, CBC, CMP, PTT #### [address] Comprehensive Metabolic Pane fernando 10-14-2023 Albumin [Mass/Vol] 4.2 g/dL Normal 3.5-5.7 [facility] Comment on above: Performed By: #### P T, CBC, CMP, PTT #### [address] Creatinine Clr Calc Pharmacy 31.71 Normal [facility] Comment on above: Result Comment: PERF ORMED BY: [place] [id number] PATHOLOGIST TOPLINE BEADING MACHINE TENDER ARRON MEEKS M.D. Performed By: #### P T, CBC, CMP, PTT #### [address] GFR/1.73 sq M.predicted MDRD (S/P/Bld) [Vol rate/Area] 45.163 mL/min/{1.73_m2} Normal [facility] Comment on above: Performed By: #### P T, CBC, CMP, PTT #### [place] [address] [place] Creatinine [Mass/volume] in Serum or PlasmaOrdered By: PROVIDER TEMP on 10-14-2023 Creatinine [Mass/Vol] 1.17 mg/dL Normal 0.60-1.20 [facility] Comment on above: Performed By: #### P T, CBC, CMP, PTT #### [facility] [address] Erythrocyte distribution wid th [Ratio] by Automated countOrdered By: PROVIDER TEMP on 10-14-2023 Erythrocyte distribution width (RBC) [Ratio] 13.7 % Normal 11.9-15.3 [facility] Comment on above: Performed By: #### P T, CBC, CMP, PTT #### [facility] [address] Erythrocytes [#/volume] in B lood by Automated countOrdered By: PROVIDER TEMP on 10-14-2023 RBC (Bld) [#/Vol] 4.21 10*6/uL Normal 3.60-5.00 [facility] Comment on above: Performed By: #### P T, CBC, CMP, PTT #### [address] Fecal occult blood detection by immunochemistryOrdered By: Moni Wagoner on 10-14-2023 Hemoglobin.gastrointes tinal Ql (Stl) [facility] Hemoglobin.gastrointes tinal Ql (Stl) [facility] Glucose [Mass/volume] in Ser um or PlasmaOrdered By: PROVIDER TEMP on 10-14-2023 Glucose [Mass/Vol] 109 mg/dL High 70-100 [facility] Comment on above: ADA recommended refe rence rangeRandom Glucose Reference Range is dependent on time and content of last meal. Glucose of more than 200 mg/dL in a nonstressed, ambulatory subject supports the diagnosis of Diabetes Mellitus. Result Comment: [place] om Glucose Reference Range is dependent on time and content of last meal. Glucose of more than 200 mg/dL in a nonstressed, ambulatory subject supports the diagnosis of Diabetes Mellitus. ADA recommended reference range Performed By: #### P T, CBC, CMP, PTT #### [facility] [address] [place] [address] [place] Hematocrit [Volume Fraction] of Blood by Automated countOrdered By: PROVIDER TEMP on 10-14-2023 Hematocrit (Bld) [Volume fraction] 38.4 % Normal 34.0-46.4 [facility] Comment on above: Performed By: #### P T, CBC, CMP, PTT #### [facility] [address] Hemoglobin [Mass/volume] in BloodOrdered By: PROVIDER TEMP on 10-14-2023 Hemoglobin (Bld) [Mass/Vol] 13.1 g/dL Normal 11.8-15.4 [facility] Comment on above: Performed By: #### P T, CBC, CMP, PTT #### [facility] [address] INR in Platelet poor plasma by Coagulation assayOrdered By: PROVIDER TEMP on 10-14-2023 INR Coag (PPP) [Relative time] 2.5 {INR} Normal [facility] Comment on above: INR Therapeutic Rang e A) Pre- and Peroperative OAT started two weeks before surgery. NOT HIP SURGERY: 1.5 - 2.5 HIP SURGERY: 2 - 3B) Primary and secondary prevention of venous THROMBOSIS: 2 - 3C) Active venous thrombosis, pulmonary embolismand prevention of recurrent venous thrombosis: 2 - 3D) Prevention of arterial thromboembolismincluding patients with mechanical heart valves: 3 - 4.5 Result Comment: INR Therapeutic Range A) Pre- and Peroperative OAT started two weeks before surgery. NOT HIP SURGERY: 1.5 - 2.5 HIP SURGERY: 2 - 3 B) Primary and secondary prevention of venous THROMBOSIS: 2 - 3 C) Active venous thrombosis, pulmonary embolism and prevention of recurrent venous thrombosis: 2 - 3 D) Prevention of arterial thromboembolism including patients with mechanical heart valves: 3 - 4.5 Performed By: #### P T, CBC, CMP, PTT ####[id number] Leukocytes [#/volume] correc jonas for nucleated erythrocytes in Blood by Automated counOrdered By: PROVIDER TEMP on 10-14-2023 WBC corrected for nucl RBC Auto (Bld) [#/Vol] 6.9 10*3/uL 3.8-11.6 [facility] Leukocytes [#/volume] in Blo od by Automated countOrdered By: PROVIDER TEMP on 10-14-2023 WBC (Bld) [#/Vol] 6.9 10*3/uL Normal 3.8-11.6 [facility] Comment on above: Performed By: #### P T, CBC, CMP, PTT #### [facility] [address] [place] [address] Lymphocytes [#/volume] in Bl ood by Automated countOrdered By: PROVIDER TEMP on 10-14-2023 Lymphocytes (Bld) [#/Vol] 1.2 10*3/uL Normal 1.00-4.8 [facility] Comment on above: Performed By: #### P T, CBC, CMP, PTT #### [facility] [address] [place] [address] Lymphocytes/100 leukocytes i n Blood by Automated countOrdered By: PROVIDER TEMP on 10-14-2023 Lymphocytes/100 WBC (Bld) 17.7 % Normal . [facility] Comment on above: Performed By: #### P T, CBC, CMP, PTT #### [facility] [address] [place] [address] MCH [Entitic mass] by Automa jonas countOrdered By: PROVIDER TEMP on 10-14-2023 MCH (RBC) [Entitic mass] 31.1 pg Normal 24.7-34.3 [facility] Comment on above: Performed By: #### P T, CBC, CMP, PTT #### [facility] [address] [place] [address] MCHC Auto (RBC) [Mass/Vol]Or dered By: PROVIDER TEMP on 10-14-2023 MCHC (RBC) [Mass/Vol] 34.1 g/dL 32.0-35.0 [facility] MCV [Entitic volume] by Auto mated countOrdered By: PROVIDER TEMP on 10-14-2023 MCV (RBC) [Entitic vol] 91.3 fL Normal 80-100 [facility] Comment on above: Performed By: #### P T, CBC, CMP, PTT #### [facility] [address] Monocyte distribution width [Entitic volume] in Blood by AutomatedOrdered By: PROVIDER TEMP on 10-14-2023 Monocyte distribution width Auto (Bld) [Entitic vol] 20.20 % 0.00-20.00 [facility] Comment on above: For adults in ED, MD W > 20.0 may be associated with a higher risk of sepsis during the first 12 hrs of hospital admission Neutrophils [#/volume] in Bl ood by Automated countOrdered By: PROVIDER TEMP on 10-14-2023 Neutrophils (Bld) [#/Vol] 4.5 10*3/uL Normal 1.8-7.7 [facility] Comment on above: Performed By: #### P T, CBC, CMP, PTT #### [facility] [address] No Panel InformationOrdered By: PROVIDER TEMP on 10-14-2023 Estimated GFR (CKD-EPI) 45.163 mL/Min [facility] Creatinine Clearance (Chem 31.71 [facility] Nucleated erythrocytes [Pres ence] in Blood by Automated countOrdered By: PROVIDER TEMP on 10-14-2023 Nucleated RBC Auto Ql (Bld) 0.1 /100{WBC} 0-0.5 [facility] Partial Thromboplastin Timeo n 10-14-2023 aPTT Coag (Bld) [Time] 38.8 s High 25.1-36.5 [facility] Comment on above: Result Comment: A he matocrit value greater than 55% may lead to inaccurate results in coagulation testing. Patients having hematocrit values >55% require a special collection tube for coagulation studies. Please contact the laboratory at [phone] for redraw instructions. PERFORMED BY: [place] [id number] PATHOLOGIST TOPLINE BEADING MACHINE TENDER ARRON MEEKS M.D. Performed By: #### P T, CBC, CMP, PTT ####[facility] [id number] Platelet mean volume [Entiti c volume] in Blood by Automated countOrdered By: PROVIDER TEMP on 10-14-2023 Platelet mean volume (Bld) [Entitic vol] 8.9 fL Normal 6.3-10.7 [facility] Comment on above: Performed By: #### P T, CBC, CMP, PTT #### [facility] [address] Platelets [#/volume] in Bloo d by Automated countOrdered By: PROVIDER TEMP on 10-14-2023 Platelets (Bld) [#/Vol] 183 10*3/uL Normal 150-450 [facility] Comment on above: Performed By: #### P T, CBC, CMP, PTT #### [facility] [address] [place] [address] Potassium [Moles/volume] in Serum or PlasmaOrdered By: PROVIDER TEMP on 10-14-2023 Potassium [Moles/Vol] 3.8 mmol/L Normal 3.5-5.1 [facility] Comment on above: Performed By: #### P T, CBC, CMP, PTT #### [facility] [address] [place] [address] Protein [Mass/volume] in Ser um or PlasmaOrdered By: PROVIDER TEMP on 10-14-2023 Protein [Mass/Vol] 7.7 g/dL Normal 6.4-8.9 [facility] Comment on above: Performed By: #### P T, CBC, CMP, PTT #### [facility] [address] [place] [address] Prothrombin time (PT)Ordered By: PROVIDER TEMP on 10-14-2023 PT Coag (PPP) [Time] 27.9 s High 9.0-12.9 [facility] Comment on above: A hematocrit value g reater than 55% may lead to inaccurate results in coagulation testing. Patients having hematocrit values >55% require a special collection tube for coagulation studies. Please contact the laboratory at [phone] for redraw instructions. Result Comment: A he matocrit value greater than 55% may lead to inaccurate results in coagulation testing. Patients having hematocrit values >55% require a special collection tube for coagulation studies. Please contact the laboratory at [phone] for redraw instructions. Performed By: #### P T, CBC, CMP, PTT ####[facility] [id number] Serum globulin measurement b y calculation (mass/volume)Ordered By: PROVIDER TEMP on 10-14-2023 Globulin (S) [Mass/Vol] 3.5 g/dL [facility] Comment on above: Performed By: #### P T, CBC, CMP, PTT #### [facility] [address] [place] [address] Serum or plasma albumin/glob ulin mass ratioOrdered By: PROVIDER TEMP on 10-14-2023 Albumin/Globulin [Mass ratio] 1.2 {ratio} [facility] Comment on above: Performed By: #### P T, CBC, CMP, PTT #### [facility] [address] [place] [address] Serum or plasma anion gap de terminationOrdered By: PROVIDER TEMP on 10-14-2023 Anion gap [Moles/Vol] 12.3 mmol/L Normal 6.0-15.0 [facility] Comment on above: Performed By: #### P T, CBC, CMP, PTT #### [facility] [address] [place] [address] Sodium [Moles/volume] in Ser um or PlasmaOrdered By: PROVIDER TEMP on 10-14-2023 Sodium [Moles/Vol] 137 mmol/L Normal 136-145 [facility] Comment on above: Performed By: #### P T, CBC, CMP, PTT #### [facility] [address] [place] [address] Stool Occult Blood (Guaiac)o n 10-14-2023 Stool Occult Blood (Guaiac) Occult Blood Positive for Occult Blood by Guaiac Methodology Reference range = Negative PERFORMED BY: [address] [place] [address] PATHOLOGIST TOPLINE BEADING MACHINE TENDER ARRON MEEKS M.D. Normal [facility] Comment on above: Performed By: #### O B(GUAIAC) ####[facility] [id number] Urea nitrogen [Mass/volume] in Serum or PlasmaOrdered By: PROVIDER TEMP on 10-14-2023 Urea nitrogen [Mass/Vol] 31 mg/dL High 725 [facility] Comment on above: Performed By: #### P T, CBC, CMP, PTT #### [facility] [address] CNPNon 10-13-2023 ANTONIO Telephone (CATHMN) KEYSHACELIA Jesse ([id number]) 1935 F Date Time Provider Department 10/13/23 BEVERLY POLANCO During your visit today, we recorded the following information about you: Stephenie Trevino 10/13/2023 12:18 PM Signed Patient called office wanting to speak to one of the nurses. Pt has a cath on and has some other health concerns and wanted to discuss to see if she should proceed with cath or reschedule. [phone] Yamilet Brody 10/13/2023 2:36 PM Signed Call received from pt who was calling to follow up. Pt reports she is home until 3:30 but will need to leave due to other nino. Pt is hoping to get a call back before then. Thank you, Regis Lopez APRN.JENNIFER 10/13/2023 3:22 PM Signed Call to patient She is having new rectal bleeding with urinating issues. She is also having pain from the wound pain. We will have the team call her in the AM Regis Rajput APRN.FILM HISTORIAN 10/14/2023 1:17 PM Signed Call back to follow up with patient She reports BRBPR and is now going to the ED as symptoms have changed She believes it is constipation. She will udpate the office tommorrow Allergies As of Date: 10/13/2023 Noted Allergy Reaction IODINE 09/18/2021 14 - Other: See Comments Comments: Per pt. was used at the dentist and she developed redness of face. This was quite awhile ago. PERCODAN (OXYCODONE-ASPIRIN) 09/18/2021 14 - Other: See Comments Comments: Per pt caused hallucinations. Date Reviewed: 09/25/2023 Reviewed by: Gaby Keating, QUENTIN - Fully Assessed Reason for Visit: Patient Question [1477] Prescriptions as of 10/14/2023 - diphenhydrAMINE (BENADRYL) 50 mg capsule Take 1 capsule by mouth as directed for 1 dose. one (1) hour prior to exam. - Amoxicillin 500 mg tablet Take 500 mg by mouth two times a day. - spironolactone (ALDACTONE) 25 mg tablet Take 0.5 tablets by mouth once daily. - sodium chloride 0.9 %, flush, (BD POSIFLUSH) syringe Inject 2-10 mL intravenously as directed. For Echo procedure - potassium chloride ER (K-DUR, KLOR-CON) 10 mEq tablet Take 1 tablet by mouth once daily. - metoprolol tartrate, short acting, (LOPRESSOR) 50 mg tablet Take 1 tablet by mouth twice daily. - Docusate Sodium 250 mg capsule Take 250 mg by mouth once daily. - atorvastatin (LIPITOR) 20 mg tablet Take 20 mg by mouth daily at bedtime. - bumetanide (BUMEX) 2 mg tablet Take 2 mg by mouth once daily. - warfarin (COUMADIN) 2 mg tablet - zolpidem (AMBIEN) 10 mg Take 10 mg by mouth daily at bedtime. - famotidine (PEPCID) 10 mg tablet Take 10 mg by mouth twice daily. - multivit-min/iron/foli c/lutein (CENTRUM SILVER WOMEN ORAL) Take by mouth. 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 Severe tricuspid regurgitation [I07.1] 12/11/2021 Primary hypertension [I10] 12/11/2021 Atrial fibrillation, chronic (HCC) [I48.20] 12/11/2021 Acute on chronic diastolic CHF (congestive hear*12/12/2021 CKD (chronic kidney disease) [N18.9] 12/12/2021 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 Permanent atrial fibrillation (HCC) [I48.21] 08/06/2023 Non-ischemic cardiomyopathy (HCC) [I42.8] 08/06/2023 Nonrheumatic tricuspid valve regurgitation [I36*08/06/2023 Other specified peripheral vascular diseases (H*09/25/2023 Encounter Status:Closed by STEPHENIE TREVINO on 10/13/23 Normal [facility] Prothrombin Time INRon 10-13 INR Coag (PPP) [Relative time] 2.5 {INR} [facility] Other Prothrombin Time INR [employer] Other Prothrombin Time INRon 10-02 INR Coag (PPP) [Relative time] 2.6 {INR} [facility] Other Prothrombin Time INR [facility] [employer] Other CNOVon 09-25-2023 CNOV Office Visit (CAFN ) CELIA CHOPRA ([id number]) 1935 F Date Time Provider Department 09/25/23 10:30 AM TRANSESOPHAGEAL ECHO CARD MAINCAFLMN During your visit today, we recorded the following information about you: Temperature Pulse Respiration Blood pressure 97.7 degrees 67/minute 16/minute 146/67 Samantha Harvey, QUENTIN 09/25/2023 12:41 PM Signed AMBULATORY PATIENT EDUCATION TOPIC: MARLYN READINESS TO LEARN COGNITIVE ABILITY: Alert and oriented MOTIVATION TO LEARN: Eager FAMILY SUPPORT: None - Unavailable/disinteres jonas INSTRUCTION PROVIDED TO: Patient PATIENT LEARNS BEST BY: Individual Instruction Verbal Instruction FACTORS AFFECTING LEARNING: None PHYSICAL LIMITATIONS AFFECTING LEARNING: None LEARNING RESPONSE DIAGNOSIS: Tv clip/ TTVR METHOD OF INSTRUCTION: Individual instruction PATIENT / FAMILY RESPONSE: Verbalizes understanding of: POST-PROCEDURE INSTRUCTIONS-Correct actions to take to reduce post procedure complications PRE-PROCEDURE INSTRUCTIONS-Correct action to take to follow pre-procedure instructions FOLLOW-UP PLAN: Complete - No need for follow-up SUPPLEMENTAL MATERIAL: None REFERRAL (RECOMMENDATION): None Electronically Signed By Samantha Harvey, RN In Department: CARDIOLOGY Referring Provider: BEVERLY POLANCO [[id number]] Allergies As of Date: 09/25/2023 Noted Allergy Reaction IODINE 09/18/2021 14 - Other: See Comments Comments: Per pt. was used at the dentist and she developed redness of face. This was quite awhile ago. PERCODAN (OXYCODONE-ASPIRIN) 09/18/2021 14 - Other: See Comments Comments: Per pt caused hallucinations. Date Reviewed: 09/25/2023 Reviewed by: Gaby Keating, QUENTIN - Fully Assessed Visit Diagnoses:Encounter for preprocedural cardiovascular examination [Z01.810] Nonrheumatic tricuspid valve regurgitation [I36.1] Chronic right-sided heart failure (HCC) [I50.812] IGLESIAS (dyspnea on exertion) [R06.09] Atrial fibrillation, chronic (HCC) [I48.20] Order(s):ECHO TRANSESOPHAGEAL [[id number]] Order #: [id number]: 1 [] lidocaine urojet 2 % topical gel (GLYDO)Disp: Rfl: [] benzocaine 20% (TOPEX)Disp: Rfl: [] fentaNYL 50 mcg/mL injection (SUBLIMAZE)Disp: Rfl: [] midazolam (PF) injection (VERSED)Disp: Rfl: Prescriptions as of 09/25/2023 - diphenhydrAMINE (BENADRYL) 50 mg capsule Take 1 capsule by mouth as directed for 1 dose 1 hour prior to exam. - diphenhydrAMINE (BENADRYL) 50 mg capsule Take 1 capsule by mouth as directed for 2 doses. one (1) hour prior to exam. - Amoxicillin 500 mg tablet Take 500 mg by mouth two times a day. - spironolactone (ALDACTONE) 25 mg tablet Take 0.5 tablets by mouth once daily. - diphenhydrAMINE (BENADRYL) 50 mg capsule Take 1 capsule by mouth as directed for 1 dose. one (1) hour prior to CT. Repeat again prior to cath. - sodium chloride 0.9 %, flush, (BD POSIFLUSH) syringe Inject 2-10 mL intravenously as directed. For Echo procedure - potassium chloride ER (K-DUR, KLOR-CON) 10 mEq tablet Take 1 tablet by mouth once daily. - metoprolol tartrate, short acting, (LOPRESSOR) 50 mg tablet Take 1 tablet by mouth twice daily. - Docusate Sodium 250 mg capsule Take 250 mg by mouth once daily. - atorvastatin (LIPITOR) 20 mg tablet Take 20 mg by mouth daily at bedtime. - bumetanide (BUMEX) 2 mg tablet Take 2 mg by mouth once daily. - warfarin (COUMADIN) 2 mg tablet - zolpidem (AMBIEN) 10 mg Take 10 mg by mouth daily at bedtime. - famotidine (PEPCID) 10 mg tablet Take 10 mg by mouth twice daily. - multivit-min/iron/foli c/lutein (CENTRUM SILVER WOMEN ORAL) Take by mouth. 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 Severe tricuspid regurgitation [I07.1] 12/11/2021 Primary hypertension [I10] 12/11/2021 Atrial fibrillation, chronic (HCC) [I48.20] 12/11/2021 Acute on chronic diastolic CHF (congestive hear*12/12/2021 CKD (chronic kidney disease) [N18.9] 12/12/2021 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 Normal [facility] Office Visit (TOMN ) CELIA CHOPRA ([id number]) 1935 F Date Time Provider Department 09/25/23 8:30 AM ANNITA BAEZ TOHSMN During your visit today, we recorded the following information about you: Annita Baez MD 09/25/2023 1:00 PM Signed [facility] [place] DEPARTMENT OF CARDIAC SURGERY OUTPATIENT VISIT DATE September 25, 2023 OUTPATIENT VISIT SERVICE DATE: 09/25/2023 SERVICE TIME: 12:55 PM PCP: Haresh Lino ([facility]) [address] [place] [address] Referring Physician: Beverly Polanco [address] [facility] [address] Patient Type: New Visit to Determine Surgery: Yes HPI: Ms. Celia Chopra is a 88 year old female seen regarding candidacy for cardiac surgery. She is currently symptomatic and complains of dyspnea on exertion Comorbidities include PAST MEDICAL HISTORY Diagnosis Date Atrial fibrillation (HCC) Chronic kidney disease GERD (gastroesophageal reflux disease) Melanoma (HCC) Rheumatic fever Rheumatic mitral valve disease Sleep apnea Tricuspid regurgitation I have personally reviewed and analyzed all records that pertain to the patient's prior course in addition to the following studies: cardiac catheterization. Last CT Result Conclusion CT CARDIAC W IVCON Exam End: 09/23/2023 1:53 PM (Final result) Impression: IMPRESSION: - Severely dilated right ventricle with evidence of interventricular septal flattening during diastole, suggestive of RV volume overload. Dynamic 4D reconstruction of the tricuspid valve reveals mild leaflet billowing during systole with suspected coaptation gap. Tricuspid annular dimensions as per body of report. - Status post MVR without evidence of pannus or leaflet thickening. - Stable mild dilation of the aortic root (3.9 cm). The remainder of the thoracic aorta is normal in caliber with mild scattered calcific changes. [employer]: [facility] Transcribe Date/Time: Sep 23 2023 2:58P Dictated by : JANKI MARTINEZ MD This examination was interpreted and the report reviewed and electronically signed by: GINGER EVANS MD on Sep 23 2023 4:13PM EST Last ECHO Result Conclusion ECHO Collected: 09/23/2023 9:23 AM (Final result) Impression: CONCLUSIONS: - Technically difficult exam due to body habitus. - Exam indication: Tricuspid insufficiency - The left ventricle is normal in size. Left ventricular systolic function is normal. EF = 68 ? 5% (2D biplane) Left ventricular diastolic function was not evaluated due to mitral valve surgery. - The right ventricle is dilated. Right ventricular systolic function is moderately decreased. Prior RVSP was 63mmHg. - The left atrial cavity is mildly dilated. - The right atrial cavity is dilated. - Post mitral valve replacement. Marina Nela prosthetic mitral valve (size #26). There is trace mitral valve regurgitation. The peak gradient is 11 mmHg and the mean gradient is 4 mmHg. Prior peak and mean gradients were 15/5mmHg. Mobile echodensity seen in the LVOT, seen on prior echoes. - There is moderately severe (3+) tricuspid valve regurgitation. - - Estimated right ventricular systolic pressure is 56 mmHg consistent with moderate pulmonary hypertension. Estimated right atrial pressure is 15 mmHg based on IVC assessment. Reported gradients are averaged d/t AF. - Exam was compared with the prior CC echocardiographic exam performed on 08/13/2023.MV: Prior peak and mean gradients were 20/10mmHg. * * * Final * * * Impression: 88 y/o F with PMH of MVR and Daljit MVR 2021, now presenting with moderately severe (3+) tricuspid valve regurgitation Plan: Given her age and co-morbidities, it's reasonable to evaluate her for trans-catheter therapies for the TR Based on my evaluation she is a high risk for cardiac surgery. Annita Baez MD Referring Provider: BEVERLY POLANCO [[id number]] Allergies As of Date: 09/25/2023 Noted Allergy Reaction IODINE 09/18/2021 14 - Other: See Comments Comments: Per pt. was used at the dentist and she developed redness of face. This was quite awhile ago. PERCODAN (OXYCODONE-ASPIRIN) 09/18/2021 14 - Other: See Comments Comments: Per pt caused hallucinations. Date Reviewed: 09/25/2023 Reviewed by: Gaby Keating RN - Fully Assessed Primary Visit Diagnosis:Nonrheumatic tricuspid valve regurgitation [I36.1] Other Visit Diagnoses:Acute on chronic diastolic CHF (congestive heart failure) (HCC) [I50.33] Non-ischemic cardiomyopathy (HCC) [I42.8] Permanent atrial fibrillation (HCC) [I48.21] Other specified peripheral vascular diseases (HCC) [I73.89] Prescriptions as of 09/25/2023 - diphenhydrAMINE (BENADRYL) 50 mg capsule Take 1 capsule by mouth as directed for 1 dose 1 hour (more content not included)... Normal [facility] ECHO TRANSESOPHAGEALon 09-25 ECHO TRANSESOPHAGEAL Echocardiography Report: Transesophageal Echo [facility] J1-5 Date of service: 09/25/2023 11:31:22 AM MANAGER Ordering physician: BEVERLY POLANCO Indication: TR Technologist: fellow Fellow: Miguel Maradiaga MD Interpreting physician: Moi Serrano MD PATIENT: Name: MRS. CELIA CHOPRA : 1935 Age: 88 years Gender: F Pre Post Heart rate 60 bpm 65 bpm Blood pressure 180/93 mmHg 156/67 mmHg O2 saturation 100 % 95 % Color Doppler was utilized to interrogate the cardiac valves assessed and spectral Doppler was utilized to determine the flow velocities and pressure gradients reported in this exam. Medications Total Dose Versed 3.00 mg Fentanyl 75.00 mcg Agitated Saline 10.00 ml Exam performed under moderate sedation with continuous ECG, pulse oximetry and cardiopulmonary monitoring by nursing, overseen by the performing physician(s), for an intraservice time of 23 min. (Stop Time: 12:19:19) No specimens collected. No blood loss. The interpreting physician was present for and actively participated in the MARLYN procedure. MEASUREMENTS: Value Normal Max aortic dimension 3.6 cm Ao < 3.8 Ejection Fraction 60 % (visual est.) EF > 54 FINDINGS: LEFT VENTRICLE The left ventricle is normal in size. Left ventricular systolic function is normal. RIGHT VENTRICLE The right ventricle is dilated. Right ventricular systolic function is moderately decreased. Estimated right ventricular systolic pressure is 55 mmHg plus right atrial pressure. Estimated right atrial pressure is not included as the IVC was not seen. LEFT ATRIUM Pulmonary Veins: The pulmonary venous pattern showed blunted systolic flow. MITRAL VALVE S3 prosthetic valve. There is no mitral valve regurgitation. The peak mitral valve gradient is 13 mmHg. The mean mitral valve gradient is 3 mmHg. TRICUSPID VALVE There is moderately severe (3+) tricuspid valve regurgitation. There is a medially directed regurgitant jet. 3D echocardiographic multi-planar reconstruction of the tricuspid valve was performed to assess anatomy and function. AORTIC VALVE The peak gradient is 17 mmHg (peak velocity = 204.0 cm/s). The mean gradient is 9 mmHg. The aortic VTI is 52.0 cm. The dimensionless valve index is 0.50. PULMONIC VALVE There is mild (1+ - 2+) pulmonic valve regurgitation. 3D echocardiographic multi-planar reconstruction of the pulmonic valve was performed to assess anatomy and function. AORTA The visualized aorta is normal in size. Measurements - Sinus: 3.6 cm. There is a mild atheroma. INTERATRIAL SEPTUM There is no evidence of intracardiac shunting as detected by Doppler and agitated saline contrast. CONCLUSIONS: - Exam indication: TR - The left ventricle is normal in size. Left ventricular systolic function is normal. EF = 60 5% (visual est.) - The right ventricle is dilated. Right ventricular systolic function is moderately decreased. - S/p surgical SUE clip with no residual appendage visualized. - S3 prosthetic mitral valve. There is no mitral valve regurgitation. The peak gradient is 13 mmHg and the mean gradient is 3 mmHg. - There is moderately severe (3+) tricuspid valve regurgitation. Origin of TR at an area of anterior leaflet prolapse over the septal leaflet. There is likely also component of functional TR due to annular dilatation. - Estimated right ventricular systolic pressure is 55 mmHg plus right atrial pressure. Estimated right atrial pressure is not included as the IVC was not seen. - Exam was compared with the prior echocardiographic exam performed on 09/23/23. TR mechanism better appreciated on today's exam. * * * Final (Updated) * * * [employer] : [id number] Normal [facility] NURSING PROGon 09-25-2023 NURSING PROG HNO ID: [id number] Author: SAMANTHA HARVEY, RN Service: ? Author Type: Registered Nurse Type: Nursing Progress Note Filed: 09/25/2023 12:41 Note Text: AMBULATORY PATIENT EDUCATION TOPIC: MARLYN READINESS TO LEARN COGNITIVE ABILITY: Alert and oriented MOTIVATION TO LEARN: Eager FAMILY SUPPORT: None - Unavailable/disinteres jonas INSTRUCTION PROVIDED TO: Patient PATIENT LEARNS BEST BY: Individual Instruction Verbal Instruction FACTORS AFFECTING LEARNING: None PHYSICAL LIMITATIONS AFFECTING LEARNING: None LEARNING RESPONSE DIAGNOSIS: Tv clip/ TTVR METHOD OF INSTRUCTION: Individual instruction PATIENT / FAMILY RESPONSE: Verbalizes understanding of: POST-PROCEDURE INSTRUCTIONS-Correct actions to take to reduce post procedure complications PRE-PROCEDURE INSTRUCTIONS-Correct action to take to follow pre-procedure instructions FOLLOW-UP PLAN: Complete - No need for follow-up SUPPLEMENTAL MATERIAL: None REFERRAL (RECOMMENDATION): None Electronically Signed By Samantha Harvey RN In Department: CARDIOLOGY Normal [facility] CARD CATH DIAGNOSTICon 09-24 CARD CATH DIAGNOSTIC Site Id: [id number] Lab #: [id number] Plumbing Drafter 4 Study Date: 09/24/2023 Start Time: 09/24/2023 11:44:39 AM End Time: 09/24/2023 12:58:17 PM Physician Name Lizett Mcgowan M.D., Evan M.D. Nursing/Seema Lebron R.N., C R.N. Brucchieri M. R.Katelyn. + + PATIENT INFORMATION + + Name: MRS. CELIA CHOPRA : 1935 Age: 88 years Gender: F Height: 66 in / 168 cm Weight: 149.00 lb / 67.59 kg BMI: 23.95 kg/m BSA: 1.77 m + ---------+ CLINICAL HISTORY/INDICATION(s) + ---------+ Suspected pulmonary artery hypertension/equivocal or borderline elevated estimated right ventricular systolic pressure on resting echocardiogram; AUC score = 7Preoperative assessment before valvular surgery; AUC score = 7. 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 Access Point Sheath Size Hemostasis Method Brachial vein right 5F Short Manual Hold Right Radial Artery 5F Short Radial TR band + + DIAGNOSTIC FINDINGS + + Coronary Anatomy: Right Dominant Injection Site(s): Coronary Artery LMT: _ The LMT has mild diffuse disease. Additional Comment: Mild disease. LAD: _ The LAD has mild diffuse disease. Additional Comment: The LAD is a large-caliber vessel which wraps around the apex. The LAD gives rise to a large-caliber high first diagonal branch which is completely occluded proximally with the mid and distal segments filling via left to left collaterals arising from the apical LAD. The LAD also gives rise to a large-caliber second diagonal branch. There is mild diffuse disease throughout the proximal and mid-LAD, as well as the proximal portion of the second diagonal branch. LCX: _ The Circumflex has mild diffuse disease. Additional Comment: The LCx is a large-caliber non-dominant vessel which gives rise to a large obtuse marginal branch that supplies a large territory of the anterolateral wall. There is mild diffuse disease throughout the LCx and its branches. RAMUS: _ The Ramus is Absent. RCA: _ The RCA has mild diffuse disease. Additional Comment: The RCA is a large-caliber dominant vessel which bifurcates into the PDA and PLB. There is mild diffuse disease throughout the RCA and its branches. GRAFTS: _ Radial Graft End to Side to the First Diagonal . Additional Comments - The left radial to diagonal graft was not engaged given it is known to be occluded. + + HEMODYNAMICS + + General: RA A Wave 8.00 RA V Wave 20.00 RA Mean 10.00 RV 55.00/10.00 PA 58.00/18.00 (30.00) PCWP A Wave 18.00 PCWP V Wave 36.00 PCWP Mean 20.00 Cardiac Outputs: ARTEM CO 3.29 ARTEM CI 1.86 ARTEM HR 63.00 ARTEM SV 52.22 ARTEM SVI 29.52 Oximetry: HB 12.00 O2 Sat PA 68.70 O2 Sat AO 96.00 + + HEMODYNAMIC CONDITIONS (SENSIS ENTERED): + + Valve Gradients: Oximetry: # Site O2-Saturation O2-Cont. Sample Time PO2 1 Main Pulmonary Artery 68.7 113.1 09/24/2023 12:14:41 PM 1 Aorta 96.0 159.2 09/24/2023 12:14:34 PM + + IMPRESSION/PLAN + + Impression: - Known complete occlusion of large first diagonal branch which appears to fill retrograde via [id number] collaterals arising from the apical LAD. - Engagement of left radial to first diagonal graft not attempted given known to be occluded in context of patient age and renal dysfunction. - Otherwise mild diffuse coronary artery disease. - Right-dominant system. 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 - Reduced CO/CI by Artem method (3.29/1.86). Yamil preseved (4.0). Recommended Treatment: Medical Therapy and Valve repair / replacement. Plan: - Optimal medical therapy and risk factor modification for coronary artery disease and valvular heart disease. - Proceed with ongoing evaluation for possible tricuspid valve intervention. + + ADVERSE OUTCOME(s)/COMPLICATIO N(s) + + None + ---------+ PROCEDURAL & TECHNICAL DETAILS + ---------+ PROCEDURE SEQUENCE: Time Procedure Performed 09/24/2023 12:11:17 PM Cardiac Outputs 09/24/2023 12:11:19 PM Oxygen Determination 09/24/2023 12:11:20 PM Right Heart Cath 09/24/2023 12:41:55 PM Left Heart Cath PROCEDURE DETAILS: Contrast: Contrast Type Total Infused Omnipaque 150ml 20 Blood Loss: < 30ml (more content not included)... Normal [facility] CNPNon 09-24-2023 CNPN Telephone (CAROL) CELIA CHOPRA ([id number]) 1935 F Date Time Provider Department 09/24/23 LORENZA FOX During your visit today, we recorded the following information about you: Lorenza Fox RN 09/24/2023 10:16 AM Signed ECHO LAB TELEPHONE INSTRUCTIONS: Learning Response: Instructions provided to: Patient Procedure: MARLYN Pre procedure education topics: Arrival time, NPO status, Medications, Travel, and Accompanied by a responsible adult Instructions/Restricti ons Patient/Family Response Evaluation: Verbalizes understanding Follow Up Plan and Medication: As directed by physician Instruction/Supplement al Material Given: Appointment Information and Procedure/Test Specific Information: Transesphageal Echocardiogram-MARLYN Instructed By Lorenza Fox RN. In Department of CARDIOLOGY. Allergies As of Date: 09/24/2023 Noted Allergy Reaction IODINE 09/18/2021 14 - Other: See Comments Comments: Per pt. was used at the dentist and she developed redness of face. This was quite awhile ago. PERCODAN (OXYCODONE-ASPIRIN) 09/18/2021 14 - Other: See Comments Comments: Per pt caused hallucinations. Date Reviewed: 09/23/2023 Reviewed by: Mandeep Kirkpatrick, RN - Fully Assessed Reason for Visit: Reminder Call [[id number]] Cmt: marlyn Prescriptions as of 09/24/2023 - predniSONE (DELTASONE) 50 mg Take 1 tablet by mouth every 6 hours for 3 doses. For prevention of contrast allergy given 13 hrs, 7 hrs, and 1 hr prior to exam. - diphenhydrAMINE (BENADRYL) 50 mg capsule Take 1 capsule by mouth as directed for 1 dose 1 hour prior to exam. - diphenhydrAMINE (BENADRYL) 50 mg capsule Take 1 capsule by mouth as directed for 2 doses. one (1) hour prior to exam. - Amoxicillin 500 mg tablet Take 500 mg by mouth two times a day. - spironolactone (ALDACTONE) 25 mg tablet Take 0.5 tablets by mouth once daily. - diphenhydrAMINE (BENADRYL) 50 mg capsule Take 1 capsule by mouth as directed for 1 dose. one (1) hour prior to CT. Repeat again prior to cath. - sodium chloride 0.9 %, flush, (BD POSIFLUSH) syringe Inject 2-10 mL intravenously as directed. For Echo procedure - potassium chloride ER (K-DUR, KLOR-CON) 10 mEq tablet Take 1 tablet by mouth once daily. - metoprolol tartrate, short acting, (LOPRESSOR) 50 mg tablet Take 1 tablet by mouth twice daily. - Docusate Sodium 250 mg capsule Take 250 mg by mouth once daily. - atorvastatin (LIPITOR) 20 mg tablet Take 20 mg by mouth daily at bedtime. - bumetanide (BUMEX) 2 mg tablet Take 2 mg by mouth once daily. - warfarin (COUMADIN) 2 mg tablet - zolpidem (AMBIEN) 10 mg Take 10 mg by mouth daily at bedtime. - famotidine (PEPCID) 10 mg tablet Take 10 mg by mouth twice daily. - multivit-min/iron/foli c/lutein (CENTRUM SILVER WOMEN ORAL) Take by mouth. 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] 12/11/2021 Severe tricuspid regurgitation [I07.1] 12/11/2021 Primary hypertension [I10] 12/11/2021 Atrial fibrillation, chronic (HCC) [I48.20] 12/11/2021 Acute on chronic diastolic CHF (congestive hear*12/12/2021 CKD (chronic kidney disease) [N18.9] 12/12/2021 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 Permanent atrial fibrillation (HCC) [I48.21] 08/06/2023 Non-ischemic cardiomyopathy (HCC) [I42.8] 08/06/2023 Nonrheumatic tricuspid valve regurgitation [I36*08/06/2023 Encounter Status:Closed by LORENZA FOX on 09/24/23 Normal [facility] CBC W Auto Differential pane l (Bld)on 09-23-2023 Basophils (Bld) [#/Vol] 10*3/uL Normal <0.11 [facility] Comment on above: Order Comment: Speci men Type: BLOOD SPECIMENOrdering Facility: [facility] Address: [address] [place] [address] Performed By: #### 5 [id number] ####[facility] LABCLIA [id number] [place] [address] [place] Basophils/100 WBC (Bld) 0.4 % Normal [facility] Comment on above: Order Comment: Speci men Type: BLOOD SPECIMENOrdering Facility: [facility] Address: [address] [place] [address] Performed By: #### 5 [id number] ####[facility] [facility] [id number] [place] [address] [place] Differential cell count method Nom (Bld) Auto Normal [facility] Comment on above: Order Comment: Speci men Type: BLOOD SPECIMENOrdering Facility: [facility] Address: [address] [place] [address] Performed By: #### 5 7021-8 ####[facility] LABCLIA [id number] [place] [address] [place] Eosinophils (Bld) [#/Vol] 10*3/uL Normal <0.46 [facility] Comment on above: Order Comment: Speci men Type: BLOOD SPECIMENOrdering Facility: [facility] Address: [address] [place] [address] Performed By: #### 5 7021-8 ####[facility] LABCLIA [id number] [place] [address] [place] Eosinophils/100 WBC (Bld) 0.0 % Normal [facility] Comment on above: Order Comment: Speci men Type: BLOOD SPECIMENOrdering Facility: [facility] Address: [address] [place] [address] Performed By: #### 5 7021-8 ####[facility] LABCLIA [id number] [place] [address] [place] Erythrocyte distribution width (RBC) [Ratio] 13.1 % Normal 11.5-15.0 [facility] Comment on above: Order Comment: Speci men Type: BLOOD SPECIMENOrdering Facility: [facility] Address: [address] [place] [address] Performed By: #### 5 7021-8 ####[facility] LABCLIA [id number] [place] [address] [place] Hematocrit (Bld) [Volume fraction] 42.4 % Normal 36.0-46.0 [facility] Comment on above: Order Comment: Speci men Type: BLOOD SPECIMENOrdering Facility: [facility] Address: [address] [place] [address] Performed By: #### 5 7021-8 ####[facility] LABCLIA [id number] [place] [address] [place] Hemoglobin (Bld) [Mass/Vol] 13.5 g/dL Normal 11.5-15.5 [facility] Comment on above: Order Comment: Speci men Type: BLOOD SPECIMENOrdering Facility: [facility] Address: [address] [place] [address] Performed By: #### 5 7021-8 ####[facility] LABCLIA [id number] [place] [address] [place] Immature granulocytes (Bld) [#/Vol] 10*3/uL Normal <0.10 [facility] Comment on above: Order Comment: Speci men Type: BLOOD SPECIMENOrdering Facility: [facility] Address: [address] [place] [address] Performed By: #### 5 7021-8 ####[facility] LABCLIA [id number] [place] [address] [place] Immature granulocytes/100 WBC (Bld) 0.2 % Normal [facility] Comment on above: Order Comment: Speci men Type: BLOOD SPECIMENOrdering Facility: [facility] Address: [address] [place] [address] Performed By: #### 5 7021-8 ####[facility] LABCLIA [id number] [place] [address] [place] Lymphocytes (Bld) [#/Vol] 1.02 10*3/uL Normal 1.00-4.00 [facility] Comment on above: Order Comment: Speci men Type: BLOOD SPECIMENOrdering Facility: [facility] Address: [address] [place] [address] Performed By: #### 5 7021-8 ####[facility] LABCLIA [id number] [place] [address] [place] Lymphocytes/100 WBC (Bld) 18.6 % Normal [facility] Comment on above: Order Comment: Speci men Type: BLOOD SPECIMENOrdering Facility: [facility] Address: [address] [place] [address] Performed By: #### 5 7021-8 ####[facility] LABIA [id number] [place] [address] [place] MCH (RBC) [Entitic mass] 30.3 pg Normal 26.0-34.0 [facility] Comment on above: Order Comment: Speci men Type: BLOOD SPECIMENOrdering Facility: [facility] Address: [address] [place] [address] Performed By: #### 5 7021-8 ####[facility] [id number] [place] [address] [place] MCHC (RBC) [Mass/Vol] 31.8 g/dL Normal 30.5-36.0 [facility] Comment on above: Order Comment: Speci men Type: BLOOD SPECIMENOrdering Facility: [facility] Address: [address] [place] [address] Performed By: #### 5 7021-8 ####[facility] LABIA [id number] [place] [address] [place] MCV (RBC) [Entitic vol] 95.3 fL Normal 80.0-100.0 [facility] Comment on above: Order Comment: Speci men Type: BLOOD SPECIMENOrdering Facility: [facility] Address: [address] [place] [address] Performed By: #### 5 7021-8 ####[facility] [id number] [place] [address] [place] Monocytes (Bld) [#/Vol] 0.15 10*3/uL Normal <0.87 [facility] Comment on above: Order Comment: Speci men Type: BLOOD SPECIMENOrdering Facility: [facility] Address: [address] [place] [address] Performed By: #### 5 7021-8 ####[facility] LABCLIA [id number] [place] [address] [place] Monocytes/100 WBC (Bld) 2.7 % Normal [facility] Comment on above: Order Comment: Speci men Type: BLOOD SPECIMENOrdering Facility: [facility] Address: [address] [place] [address] Performed By: #### 5 7021-8 ####[facility] LABCLIA [id number] [place] [address] [place] Neutrophils (Bld) [#/Vol] 4.27 10*3/uL Normal 1.45-7.50 [facility] Comment on above: Order Comment: Speci men Type: BLOOD SPECIMENOrdering Facility: [facility] Address: [address] [place] [address] Performed By: #### 5 7021-8 ####[facility] LABCLIA [id number] [place] [address] [place] Neutrophils/100 WBC (Bld) 78.1 % Normal [facility] Comment on above: Order Comment: Speci men Type: BLOOD SPECIMENOrdering Facility: [facility] Address: [address] [place] [address] Performed By: #### 5 7021-8 ####[facility] LABCLIA [id number] [place] [address] [place] Nucleated RBC (Bld) [#/Vol] 10*3/uL Normal <0.01 [facility] Comment on above: Order Comment: Speci men Type: BLOOD SPECIMENOrdering Facility: [facility] Address: [address] [place] [address] Performed By: #### 5 7021-8 ####[facility] LABCLIA [id number] [place] [address] [place] Nucleated RBC/100 WBC (Bld) [Ratio] 0.0 /100 WBC Normal [facility] Comment on above: Order Comment: Speci men Type: BLOOD SPECIMENOrdering Facility: [facility] Address: [address] [place] [address] Performed By: #### 5 7021-8 ####[facility] LABIA [id number] [place] [address] [place] Platelet mean volume (Bld) [Entitic vol] 11.0 fL Normal 9.0-12.7 [facility] Comment on above: Order Comment: Speci men Type: BLOOD SPECIMENOrdering Facility: [facility] Address: [address] [place] [address] Performed By: #### 5 7021-8 ####[facility] LABIA [id number] [place] [address] [place] Platelets (Bld) [#/Vol] 186 10*3/uL Normal 150-400 [facility] Comment on above: Order Comment: Speci men Type: BLOOD SPECIMENOrdering Facility: [facility] Address: [address] [place] [address] Performed By: #### 5 7021-8 ####[facility] LABIA [id number] [place] [address] [place] RBC (Bld) [#/Vol] 4.45 10*6/uL Normal 3.90-5.20 [facility] Comment on above: Order Comment: Speci men Type: BLOOD SPECIMENOrdering Facility: [facility] Address: [address] [place] [address] Performed By: #### 5 7021-8 ####[facility] LABCLIA [id number] [place] [address] [place] WBC (Bld) [#/Vol] 5.47 10*3/uL Normal 3.70-11.00 [facility] Comment on above: Order Comment: Speci men Type: BLOOD SPECIMENOrdering Facility: [facility] Address: [address] [place] [address] Performed By: #### 5 7021-8 ####[facility] RAQUEL [id number] [facility] [place] [address] [place] CNNURSEon 09-23-2023 CNNURSE Nurse Visit (CATHMN) CELIA CHOPRA ([id number]) 1935 F Date Time Provider Department 09/23/23 11:30 AM RESEARCH NURSE CARD INTERVENTION MNCATHMN During your visit today, we recorded the following information about you: Viri Mills RN 09/23/2023 5:28 PM Signed IRB 23-554 [facility] PI: Dr. Polanco Study explained/reviewed with patient. Study related screening process, follow-up requirements were discussed. Risks, benefits, alternatives, personnel, and costs of the study explained/reviewed. Patient provided informed consent for review. Study related questions were addressed. Will plan to meet with patient later this week . Rosa SAAVEDRA Referring Provider: BEVERLY POLANCO [[id number]] Allergies As of Date: 09/23/2023 Noted Allergy Reaction IODINE 09/18/2021 14 - Other: See Comments Comments: Per pt. was used at the dentist and she developed redness of face. This was quite awhile ago. PERCODAN (OXYCODONE-ASPIRIN) 09/18/2021 14 - Other: See Comments Comments: Per pt caused hallucinations. Date Reviewed: 09/23/2023 Reviewed by: Mandeep Kirkpatrick, QUENTIN - Fully Assessed Reason for Visit: Informed Consent [920] Cmt: IRB Primary Visit Diagnosis:Examination of participant in clinical trial [Z00.6] Prescriptions as of 09/23/2023 - predniSONE (DELTASONE) 50 mg Take 1 tablet by mouth every 6 hours for 3 doses. For prevention of contrast allergy given 13 hrs, 7 hrs, and 1 hr prior to exam. - diphenhydrAMINE (BENADRYL) 50 mg capsule Take 1 capsule by mouth as directed for 1 dose 1 hour prior to exam. - diphenhydrAMINE (BENADRYL) 50 mg capsule Take 1 capsule by mouth as directed for 2 doses. one (1) hour prior to exam. - Amoxicillin 500 mg tablet Take 500 mg by mouth two times a day. - spironolactone (ALDACTONE) 25 mg tablet Take 0.5 tablets by mouth once daily. - diphenhydrAMINE (BENADRYL) 50 mg capsule Take 1 capsule by mouth as directed for 1 dose. one (1) hour prior to CT. Repeat again prior to cath. - sodium chloride 0.9 %, flush, (BD POSIFLUSH) syringe Inject 2-10 mL intravenously as directed. For Echo procedure - potassium chloride ER (K-DUR, KLOR-CON) 10 mEq tablet Take 1 tablet by mouth once daily. - metoprolol tartrate, short acting, (LOPRESSOR) 50 mg tablet Take 1 tablet by mouth twice daily. - Docusate Sodium 250 mg capsule Take 250 mg by mouth once daily. - atorvastatin (LIPITOR) 20 mg tablet Take 20 mg by mouth daily at bedtime. - bumetanide (BUMEX) 2 mg tablet Take 2 mg by mouth once daily. - warfarin (COUMADIN) 2 mg tablet - zolpidem (AMBIEN) 10 mg Take 10 mg by mouth daily at bedtime. - famotidine (PEPCID) 10 mg tablet Take 10 mg by mouth twice daily. - multivit-min/iron/foli c/lutein (CENTRUM SILVER WOMEN ORAL) Take by mouth. 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] 12/11/2021 Severe tricuspid regurgitation [I07.1] 12/11/2021 Primary hypertension [I10] 12/11/2021 Atrial fibrillation, chronic (HCC) [I48.20] 12/11/2021 Acute on chronic diastolic CHF (congestive hear*12/12/2021 CKD (chronic kidney disease) [N18.9] 12/12/2021 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 [id number] [facility] PI: Dr. Polanco Study explained/reviewed with patient. Study related screening process, follow-up requirements were discussed. Risks, benefits, alternatives, personnel, and costs of the study explained/reviewed. Patient provided informed consent for review. Study related questions were addressed. Will plan to meet with patient later this week . Rosa SAAVEDRA Encounter Status:Closed by VIRI MILLS on 09/23/23 [facility] CNOVon 09-23-2023 CNOV Office Visit (CATHMN ) CELIA CHOPRA ([id number]) 1935 F Date Time Provider Department 09/23/23 11:00 AM [facility] CATHMN During your visit today, we recorded the following information about you: Temperature Pulse Blood pressure Weight 97.4 degrees 80/minute 142/77 67.6 kg Height 1.676 m [place], Ed K, HOSPITAL CHIEF FINANCIAL OFFICER.FILM HISTORIAN 09/23/2023 10:55 AM Signed Continue medications as prescribed. Will restart warfarin after the catheterization. CT today and labs today--has taken 2/3 prednisone. Will take last dose and benadryl [address]. Echo pending Needs to picker/puller other contrast dye Rx at [facility] pharmacy Will discuss with team proceeding with [facility]/C tomorrow. From my assessment no signs of active injection. Finish antibiotics and follow up with wound care. We also discussed signs and symptoms of increased shortness of breath and peripheral edema should be reported to the local physician and Dr. Polanco's right away and be treated accordingly. Ed Barlow APRN.FILM HISTORIAN 09/23/2023 11:25 AM Signed [facility] Department of Cardiovascular Medicine SECTION OF INTERVENTIONAL CARDIOLOGY OUTPATIENT VISIT DATE September 23, 2023 OUTPATIENT VISIT TYPE ESTABLISHED FOLLOW UP Primary Product Development Actuary: Beverly Polanco MD Primary Care Physician: Haresh Lino DO Chief Complaint: Patient here for cardiac follow up evaluation History of Present Illness: Patient is a 88 year old female who presents for follow up an evaluation related to transcatheter tricuspid valve therapies. Last Visit : 08/03/23 2+ BLE edema and complaints of ABD distension despite temporary increase in bumex. Last OPD visit with Dr. Polanco: She has very significant tricuspid regurgitation. We talked about doing percutaneous tricuspid valve replacement. I looked at her prior CT and the annulus is larger than allowed for tricuspid valve replacement but it is possible that the remodeling of the annulus may have happened after the MVR just enough for tricuspid valve replacement. Seen by Dr. Ramos in HF, started MRA 08/08, increased bumex temporarily. Was supposed to have labs checked. PLAN: Given BLE edema ABD bloating, recent med changes, prior unfavorable annular measurements, would favor waiting until beginning of Sep for all testing. Agree with Dr. Ramos's med recommendations and will contact him regarding whether he wants to make changes. Labs today to check renal function. Will call if we plan to change medication based on labs. Plan for return for testing in the beginning of Sep. I will coordinate with schedulers to arrange. Provided the TRISCEND ROMÁN Consent for review. LLE traumatic leg wound Finished doxycycline and started cephalexin 1.4.24 No fevers chills no pain or purulent drainage SUBJECTIVE: ROS: OBJECTIVE: CARDIOVASCULAR MEDICINE TESTING: Echo: 04/04/23 CONCLUSIONS: - Exam indication: S/p TMVR - The left ventricle is normal in size. There is mild concentric left ventricular hypertrophy. Left ventricular systolic function is normal. EF = 61 ? 5% (2D 4-ch.) - The right ventricle is dilated. Right ventricular systolic function is mildly decreased. - The left atrial cavity is severely dilated. - The right atrial cavity is severely dilated. - Post mitral valve replacement. Marina Nela 3 prosthetic mitral valve (size #26). There is trace mitral valve regurgitation. The peak gradient is 15 mmHg and the mean gradient is 5 mmHg. Prior Pk/Mn gradients of 14/4 mmHg. Today's gradients averaged due to Afib. Small stable modbile echodensity in LVOT. - There is severe (4+) tricuspid valve regurgitation caused by annular dilatation. - There is moderate (2+ - 3+) pulmonic valve regurgitation. - Estimated right ventricular systolic pressure is 56 mmHg consistent with moderate pulmonary hypertension (but may be underestimated due to severe TR). Estimated right atrial pressure is 8 mmHg based on IVC assessment. Prior RVSP 67 mmHg. - Exam was compared with the prior echocardiographic exam performed on 02/07/2022. No significant change. [facility]: 11/05/22 DIAGNOSTIC FINDINGS + + Coronary Anatomy: Right Dominant Injection Site(s): Right Coronary Artery, Left Main Coronary Artery and Coronary Artery LMT: _ The LMT has mild luminal irregularities. LAD: _ The LAD has mild diffuse disease. Additional Comment: large caliber, wraps the apex. D1 is a moderate size vessel that is occluded proximally and fills retrograde from LAD collaterals. LCX: _ The Circumflex has mild diffuse disease. RAMUS: _ The Ramus is Absent. RCA: _ The RCA has mild diffuse disease. GRAFTS: _ Radial Graft End to Side to the Distal LAD . Additional Comments - occluded. + + HEMODYNAMICS +---- (more content not included)... Normal [facility] 09-23-2023 CNPN Telephone (CATN) CELIA CHOPRA ([id number]) 1935 F Date Time Provider Department 09/23/23 LIZETT MCGOWANKatelyn During your visit today, we recorded the following information about you: Siomara Brady, RN 09/23/2023 1:57 PM Signed CARDIOVASCULAR LAB INSTRUCTIONS: Readiness to Learn: Cognitive Ability: Alert and oriented Motivation To Learn: Interested Family/Significant Other Support: Unable to assess - Family not present Instruction Provided To: Patient Patient Learns Best By: Verbal Instruction Factors Affecting Learning: None Physical Limitations Affecting Learning: None Learning Response: Procedure: Right and Left Heart Diagnostic Pre procedure education topics: Arrival time/NPO Status/Medications/Tra penny Instructions/Restricti ons Patient/Family Response Evaluation: Verbalizes understanding Follow Up Plan and Medication: As directed by physician Instruction/Supplement al Material Given: Cardiac catheterization instructions, procedure information, hospital information, hotel information. Instructed By Celina Brady, RN, RN. In Department of CARDIOLOGY. Allergies As of Date: 09/23/2023 Noted Allergy Reaction IODINE 09/18/2021 14 - Other: See Comments Comments: Per pt. was used at the dentist and she developed redness of face. This was quite awhile ago. PERCODAN (OXYCODONE-ASPIRIN) 09/18/2021 14 - Other: See Comments Comments: Per pt caused hallucinations. Date Reviewed: 09/23/2023 Reviewed by: Mandeep Kirkpatrick, QUENTIN - Fully Assessed Reason for Visit: Patient Education [91] Prescriptions as of 09/23/2023 - predniSONE (DELTASONE) 50 mg Take 1 tablet by mouth every 6 hours for 3 doses. For prevention of contrast allergy given 13 hrs, 7 hrs, and 1 hr prior to exam. - diphenhydrAMINE (BENADRYL) 50 mg capsule Take 1 capsule by mouth as directed for 1 dose. one (1) hour prior to exam. - diphenhydrAMINE (BENADRYL) 50 mg capsule Take 1 capsule by mouth as directed for 2 doses. one (1) hour prior to exam. - Amoxicillin 500 mg tablet Take 500 mg by mouth two times a day. - spironolactone (ALDACTONE) 25 mg tablet Take 0.5 tablets by mouth once daily. - diphenhydrAMINE (BENADRYL) 50 mg capsule Take 1 capsule by mouth as directed for 1 dose. one (1) hour prior to CT. Repeat again prior to cath. - sodium chloride 0.9 %, flush, (BD POSIFLUSH) syringe Inject 2-10 mL intravenously as directed. For Echo procedure - potassium chloride ER (K-DUR, KLOR-CON) 10 mEq tablet Take 1 tablet by mouth once daily. - metoprolol tartrate, short acting, (LOPRESSOR) 50 mg tablet Take 1 tablet by mouth twice daily. - Docusate Sodium 250 mg capsule Take 250 mg by mouth once daily. - atorvastatin (LIPITOR) 20 mg tablet Take 20 mg by mouth daily at bedtime. - bumetanide (BUMEX) 2 mg tablet Take 2 mg by mouth once daily. - warfarin (COUMADIN) 2 mg tablet - zolpidem (AMBIEN) 10 mg Take 10 mg by mouth daily at bedtime. - famotidine (PEPCID) 10 mg tablet Take 10 mg by mouth twice daily. - multivit-min/iron/foli c/lutein (CENTRUM SILVER WOMEN ORAL) Take by mouth. 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] 12/11/2021 Severe tricuspid regurgitation [I07.1] 12/11/2021 Primary hypertension [I10] 12/11/2021 Atrial fibrillation, chronic (HCC) [I48.20] 12/11/2021 Acute on chronic diastolic CHF (congestive hear*12/12/2021 CKD (chronic kidney disease) [N18.9] 12/12/2021 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 HISTORY: 88 years old Female with chronic atrial fibrillation, rheumatic fever status post MVR 2011 and valve in valve TMVR 2021 with leaflet modification, single vessel CABG 2012 and CKD now with significant TR. Evaluation for further treatment options, including surgical and transcatheter interventional treatment. There is request to define annular and valvular anatomy including dynamic assessment throughout the cardiac cycle. Additional request to define aorta anatomy. TECHNIQUE: SCANNER:out-patient Siemens Definition Force Dual source [id number] scanner PROTOCOL: Retrospective gated imaging of the heart with sub-millimeter reconstructions throughout the cardiac cycle for dynamic 4D analysis following the intravenous administration of contrast material. Subsequent single phase imaging of the chest without additional contrast administration. Scan Range: thoracic inlet to the diaphragm CT Dose-Length Product (DLP): 814 mGy*cm CT Dose Reduction Employed: Automated exposure control(AEC) and iterative recon CONTRAST: IV administration of 70 ml Omnipaque 350 Scan acquisition: uncomplicated Macro Version: [id number] For optimization of anatomic evaluation, advanced 3-D off-line postprocessing was performed on a dedicated workstation by the interpreting physician. STUDY LIMITATIONS: None. RESULT: LINES, TUBES and DEVICES: None CHEST: Chest wall anatomy: evidence of median sternotomy with sternal wires in place. LUNGS: Diffuse emphysematous changes. Lingular atelectasis. MEDIASTINUM: small mediastinal lymph nodes, which are not pathologic by size criteria. PERICARDIUM: unremarkable CENTRAL PULMONARY ARTERY: dilated, measuring 3.6 cm. CARDIAC CHAMBERS: LEFT VENTRICLE: Small with normal systolic function qualitatively. Right ventricle: Severely dilated with evidence of interventricular septal flattening during diastole, suggestive of RV volume overload. Normal systolic function qualitatively. Left atrium: mildly dilated. SUE: Suspect prior surgical ligation without residual SUE. Right atrium: severely dilated CENTRAL VENOUS and PULMONARY VENOUS RETURN: Dilated IVC, measuring 2.8 cm. Coronary Sinus: normal size MITRAL and TRICUSPID VALVE: MVR with bioprosthetic valve, valve ring measuring 2.2 cm. No evidence to suggest pannus or thrombus. - no leaflet calcification. No annular calcification. TRICUSPID VALVE: Mild leaflet thickening - no leaflet calcification. No annular calcification. Dynamic 4D reconstruction reveals mild leaflet billowing during systole. Suspect systolic coaptation gap. Tricuspid Annulus end-diastole: max. and min. Diameter: 4.8 x 4.6 cm. AREA 18.9 cm2. circumference 16 cm Tricuspid Annulus end-systole: max. and min. Diameter: 5.0 x 4.6 cm. AREA 19.5 cm2. circumference 16 cm PULMONIC VALVE: assessment is limited in the current study. No leaflet calcification., No annular calcification CORONARY ANATOMY: Normal origin of the coronary arteries. Mild calcified atherosclerotic changes of the coronary arteries. However, the current study is not optimized for coronary assessment. History of prior bypass surgery. Graft assessment is limited in the current study AORTIC VALVE: Appears trileaflet. Mild leaflet calcification. AORTA: Size: Ectasia/Mild Dilation aortic root. Pathology: No acute aortic pathology. Intervention: None STJ: maintained. Wall Changes: scattered mild predominantly calcified wall changes. Arch Branch Vessels: Patent, normal size proximal segments of the arch branch vessels. Normal origin of the arch branch vessels. Mild wall calcification. AORTIC DIMENSIONS: AORTIC ROOT: 3.9 cm measured [id number], prior 3.8 cm on direct comparison 11/07/2021. mid ASCENDING THORACIC AORTA: 3.6 cm mid AORTIC ARCH: 2.7 cm mid DESCENDING THORACIC AORTA: 2.4 cm limited upper ABDOMEN: Atrophic kidneys. Prominence of IVC and intrahepatic veins. BONES: degenerative changes of the thoracic spine and scoliosis. Occupational Health Nurse Manager (topogram) images: No additional findings. IMPRESSION: - Severely dilated right ventricle with evidence of interventricular septal flattening during diastole, suggestive of RV volume overload. Dynamic 4D reconstruction of the tricuspid valve reveals mild leaflet billowing during systole with suspected coaptation gap. Tricuspid annular dimensions as per body of report. - Status post MVR without evidence of pannus or leaflet thickening. - Stable mild dilation of the aortic root (3.9 cm). The remainder of the thoracic aorta is normal in caliber with mild scattered calcific changes. [employer]: NICK Transcribe Date/Time: Sep 23 2023 2:58P Dictated by : (more content not included)... Normal [facility] Comprehensive metabolic 2000 panelon 09-23-2023 Albumin [Mass/Vol] 4.3 g/dL Normal 3.9-4.[address] [facility] Comment on above: Order Comment: Speci men Type: BLOOD SPECIMENOrdering Facility: [facility] Address: [address] [place] [address] Performed By: #### 2 4323-8, 97177-7 ####[facility] LABIA [id number] [place] [address] [place] ALP [Catalytic activity/Vol] 118 U/L Normal 34-123 [facility] Comment on above: Order Comment: Speci men Type: BLOOD SPECIMENOrdering Facility: [facility] Address: [address] [place] [address] Performed By: #### 2 4323-8, 18869-4 ####[facility] LABCLIA [id number] [place] [address] [place] ALT [Catalytic activity/Vol] 10 U/L Normal 7-38 [facility] Comment on above: Order Comment: Speci men Type: BLOOD SPECIMENOrdering Facility: [facility] Address: [address] [place] [address] Performed By: #### 2 4323-8, 95226-4 ####[facility] LABCLIA [id number] [place] [address] [place] Anion gap [Moles/Vol] 14 mmol/L Normal 9-18 [facility] Comment on above: Order Comment: Speci men Type: BLOOD SPECIMENOrdering Facility: [facility] Address: [address] [place] [address] Performed By: #### 2 4323-8, 44654-0 ####[facility] LABCLIA [id number] [place] [address] [place] AST [Catalytic activity/Vol] 23 U/L Normal 13-35 [facility] Comment on above: Order Comment: Speci men Type: BLOOD SPECIMENOrdering Facility: [facility] Address: [address] [place] [address] Performed By: #### 2 4323-8, 73316-9 ####[facility] LABCLIA [id number] [place] [address] [place] Bilirubin [Mass/Vol] 0.8 mg/dL Normal 0.2-1.3 [facility] Comment on above: Order Comment: Speci men Type: BLOOD SPECIMENOrdering Facility: [facility] Address: [address] [place] [address] Performed By: #### 2 4323-8, 26624-0 ####[facility] LABCLIA [id number] [place] [address] [place] Calcium [Mass/Vol] 10.0 mg/dL Normal 8.5-10.[address] [facility] Comment on above: Order Comment: Speci men Type: BLOOD SPECIMENOrdering Facility: [facility] Address: [address] [place] [address] Performed By: #### 2 4323-8, 46794-0 ####[facility] LABCLIA [id number] [place] [address] [place] Chloride [Moles/Vol] 100 mmol/L Normal 97-105 [facility] Comment on above: Order Comment: Speci men Type: BLOOD SPECIMENOrdering Facility: [facility] Address: [address] [place] [address] Performed By: #### 2 4323-8, 68196-5 ####[facility] LABCLIA [id number] [place] [address] [place] CO2 [Moles/Vol] 26 mmol/L Normal 22-30 [facility] Comment on above: Order Comment: Speci men Type: BLOOD SPECIMENOrdering Facility: [facility] Address: [address] [place] [address] Performed By: #### 2 4323-8, 71610-0 ####[facility] LABCLIA [id number] [place] [address] [place] Creatinine [Mass/Vol] 1.09 mg/dL High 0.58-0.96 [facility] Comment on above: Order Comment: Speci men Type: BLOOD SPECIMENOrdering Facility: [facility] Address: [address] [place] [address] Performed By: #### 2 4323-8, 99909-3 ####[facility] LABCLIA [id number] [place] [address] [place] Creatinine and Glomerular filtration rate.predicted panel (S/P/Bld) 49 mL/min/1.73m??? Low >=60 [facility] Comment on above: Order Comment: Speci men Type: BLOOD SPECIMENOrdering Facility: [facility] Address: [address] [place] [address] Result Comment: Harriet mated Glomerular Filtration Rate (eGFR) is calculated using the 2020 CKD-EPI creatinine equation. This equation utilizes serum creatinine, sex, and age as parameters. The creatinine assay has traceable calibration to isotope dilution-mass spectrometry. Refer to KDIGO guidelines for clinical interpretation. In patients with unstable renal function, e.g. those with acute kidney injury, the eGFR may not accurately reflect actual GFR. Performed By: #### 2 4323-8, 16794-7 ####[facility] LABCLIA [id number] [place] [id number] [place] Glucose [Mass/Vol] 153 mg/dL High 74-[address] [facility] Comment on above: Order Comment: Speci men Type: BLOOD SPECIMENOrdering Facility: [facility] Address: [address] [place] [address] Result Comment: The [place] [employer] (ADA) provides guidance for cutoff values for fasting glucose and random glucose. The ADA defines fasting as no caloric intake for at least 8 hours. Fasting plasma glucose results between 100 to 125 mg/dL indicate increased risk for diabetes (prediabetes). Fasting plasma glucose results greater than or equal to 126 mg/dL meet the criteria for diagnosis of diabetes. In the absence of unequivocal hyperglycemia, results should be confirmed by repeat testing. In a patient with classic symptoms of hyperglycemia or hyperglycemic crisis, random plasma glucose results greater than or equal to 200 mg/dL meet the criteria for diagnosis of diabetes. Reference: Standards of Medical Care in Diabetes 2016, [place] [employer]. Diabetes Care. 2016.39(Suppl 1). Performed By: #### 2 4323-8, 58323-1 ####[facility] LABIA [id number] [place] [address] [place] Potassium [Moles/Vol] 4.1 mmol/L Normal 3.7-5.1 [facility] Comment on above: Order Comment: Speci men Type: BLOOD SPECIMENOrdering Facility: [facility] Address: [address] [place] [address] Performed By: #### 2 4323-8, 75519-4 ####[facility]IA [id number] [place] [id number] [place] Protein [Mass/Vol] 7.8 g/dL Normal 6.3-8.[address] [facility] Comment on above: Order Comment: Speci men Type: BLOOD SPECIMENOrdering Facility: [facility] Address: [address] [place] [address] Performed By: #### 2 4323-8, 37851-5 ####[facility] LABCLIA [id number] [address] [address] [place] Sodium [Moles/Vol] 140 mmol/L Normal 136-[address] [facility] Comment on above: Order Comment: Speci men Type: BLOOD SPECIMENOrdering Facility: [facility] Address: [address] [place] [address] Performed By: #### 2 4323-8, 51727-9 ####[facility] LABCLIA [id number] [place] [address] [place] Urea nitrogen [Mass/Vol] 34 mg/dL High 7-21 [facility] Comment on above: Order Comment: Speci men Type: BLOOD SPECIMENOrdering Facility: [facility] Address: [address] [place] [address] Performed By: #### 2 4323-8, 14479-5 ####[facility] LABCLIA [id number] [place] [id number] [place] ECG COMPLETEon 09-23-2023 ECG COMPLETE Ventricular Rate : 8 0 BPM QRS Duration : 94 ms Q-T Interval : 372 ms QTC Calculation(Bazett) : 429 ms Calculated R Savoy : 6 degrees Calculated T Savoy : 14 degrees ATRIAL FIBRILLATION INCOMPLETE RIGHT BUNDLE BRANCH BLOCK NONSPECIFIC ST ABNORMALITY ABNORMAL ECG Confirmed by MD HAMLET, PhD, JAYLA ([id number]) on 10/11/2023 8:24:29 AM NAME : CELIA CHOPRA PID : [id number] : 1935 Gender : Female Race : ORD : [id number] Procedure Date : Sep 23 2023 11:29:10 Edit Date : Oct 11 2023 08:24:31 Diagnosis: ATRIAL FIBRILLATION INCOMPLETE RIGHT BUNDLE BRANCH BLOCK NONSPECIFIC ST ABNORMALITY ABNORMAL ECG Confirmed by MD HAMLET, PhD, JAYLA ([id number]) on 10/11/2023 8:24:29 AM Test Reason : Location : [address] [place] [address] J- Overread By : MD HAMLET, PhD,JAYLA Edited By : MD HAMLET, PhD,JAYLA Referred By : ED BARLOW Acquired by : CARINA ADORNO [facility] ECHOon 09-23-2023 Echocardiography Echocardiography Report: Transthoracic Echo [facility] J35 Date of service: 09/23/2023 9:23:17 AM MANAGER Ordering physician: ED BARLOW Indication: Tricuspid insufficiency Technologist: Seema Cruz [facility] Interpreting physician: Jacqueline Sanchez MD PATIENT: Name: MRS. CELIA CHOPRA : 1935 Age: 88 years Gender: F History of valvular heart disease, arrhythmia, coronary artery disease, hypertension, cardiomyopathy and chronic kidney disease. Previous cardiovascular interventions: Mitral valve replacement (2012) CABG (2012) TMVR () (12/12/2021) Primary rhythm: atrial fib. Height: 167.60 cm BSA: 1.83 m Weight: 72.12 kg BMI: 25.7 kg/m Heart rate 79 bpm Blood pressure 133/76 mmHg Technically difficult exam due to body habitus. Color Doppler was utilized to interrogate the cardiac valves assessed and spectral Doppler was utilized to determine the flow velocities and pressure gradients reported in this exam. MEASUREMENTS: Value Indexed Normal Max aortic dimension 3.6 cm Ao < 3.8 Left atrial volume 67 ml (4ch A-L) 37 ml/m Melonie <= 34 LV ID (diastole) 3.3 cm (2D) 1.78 cm/m LV ID (systole) 2.3 cm (2D) 1.23 cm/m IVS, leaflet tips 1.1 cm (2D) Posterior wall thickness 1.0 cm (2D) Left ventricular mass 107 g (2D) 58 g/m LV stroke volume 44 ml (2D biplane) LVOT stroke volume 92 ml 50 ml/m LV end diastolic volume 64 ml (2D biplane) 35.0 ml/m 29<=EDVi<62 LV end systolic volume 20 ml (2D biplane) 11.2 ml/m Ejection Fraction 68 % (2D biplane) EF > 54 FINDINGS: LEFT VENTRICLE The left ventricle is normal in size. Left ventricular systolic function is normal. Left ventricular diastolic function was not evaluated due to mitral valve surgery. There is a single false tendon at the apex. Wall Motion: All scored segments are normal. RIGHT VENTRICLE The right ventricle is dilated. Right ventricular systolic function is moderately decreased. Estimated right ventricular systolic pressure is 56 mmHg consistent with moderate pulmonary hypertension. Estimated right atrial pressure is 15 mmHg based on IVC assessment. LEFT ATRIUM The left atrial cavity is mildly dilated. RIGHT ATRIUM The right atrial cavity is dilated. Inferior Vena Cava: The inferior vena cava appears dilated measuring 2.2 cm. The vessel decreases less than 50 percent with inspiration. MITRAL VALVE Post mitral valve replacement. Marina Nela prosthetic valve size #26. There is trace mitral valve regurgitation. The peak mitral valve gradient is 11 mmHg. The mean mitral valve gradient is 4 mmHg. TRICUSPID VALVE The tricuspid valve leaflets are structurally normal. There is moderately severe (3+) tricuspid valve regurgitation. There is mild thickening. The hepatic venous pattern showed blunted systolic flow. AORTIC VALVE There is trace (trace - 1+) aortic valve regurgitation. Tricuspid aortic valve. There is mild thickening. There is mild calcification. The peak gradient is 15 mmHg (peak velocity = 196.6 cm/s). The mean gradient is 9 mmHg. The LVOT mean velocity is 90.7 cm/s. The LVOT diameter is 2.1 cm. The aortic VTI is 43.1 cm. The mean velocity in the aortic valve is 145.5 cm/s. The dimensionless valve index is 0.61. AV area is 2.12 cm (1.16 cm /m ) by continuity, VTI. The LVOT stroke volume index is 50 ml/m . PULMONIC VALVE There is mild (1+ - 2+) pulmonic valve regurgitation. There is no thickening. The diameter of the right ventricular outflow tract is 2.6 cm. AORTA The visualized aorta is normal in size. Measurements - Aortic valve annulus 2.1 cm. Mid ascending aorta 3.3 cm. Distal ascending aorta 3.6 cm. Mid arch 3.0 cm. INTERATRIAL SEPTUM There is no evidence of intracardiac shunting as detected by Doppler. INTERVENTRICULAR SEPTUM There is abnormal motion of the interventricular septum secondary to prior cardiac surgery. There is no flow through the interventricular septum as detected by Doppler. CONCLUSIONS: - Technically difficult exam due to body habitus. - Exam indication: Tricuspid insufficiency - The left ventricle is normal in size. Left ventricular systolic function is normal. EF = 68 5% (2D biplane) Left ventricular diastolic function was not evaluated due to mitral valve surgery. - The right ventricle is dilated. Right ventricular systolic function is moderately decreased. Prior RVSP was 63mmHg. - The left atrial cavity is mildly dilated. - The right atrial cavity is dilated. - Post mitral valve replacement. Marina Nela prosthetic mitral valve (size #26). There is trace mitral valve regurgitation. The peak gradient is 11 mmHg and the mean gradient is 4 mmHg. Prior peak and mean gradients were 15/5mmHg. Mobile echodensity seen in the LVOT, seen on prior echoes. - There is moderately severe (3+) tricuspid valve regurgitation. - - Estimated right ventricular systolic pressure is 56 mmHg (more content not included)... Normal [facility] NT-proBNP SerPl-ncon 09-23 Natriuretic peptide.B prohormone N-Terminal [Mass/Vol] 2620 pg/mL High <450 [facility] Comment on above: Order Comment: Ezekiel manley Type: BLOOD SPECIMENOrdering Facility: [facility] Address: [address] [place] [address] Performed By: #### 2 4323-8, 88673-1 ####[facility] LABCLIA [id number] [place] [address] [place] PT panel Coag (PPP)on 2023 INR Coag (PPP) [Relative time] 1.3 {INR} Normal 0.9-1.3 [facility] Comment on above: Order Comment: Ezekiel manley Type: BLOOD SPECIMEN [facility] Address: [address] [place] [address] Result Comment: Annabel min K Antagonist (VKA) Therapeutic Range: INR 2 to 3 (Target INR of 2.5) Note: For patients treated with VKA drugs, such as warfarin, the [place] [employer] 2012 Guideline recommends a therapeutic INR range of 2 to 3 (target INR of 2.5). This recommendation includes high-risk patients with antiphospholipid syndrome with previous arterial or venous thromboembolism, current-generation mechanical or bioprosthetic aortic heart valve replacement. Note: Patients with mechanical aortic valve replacement and additional risk factors for thromboembolic events (atrial fibrillation, previous thromboembolism, LV dysfunction, hypercoagulable conditions) or an older generation mechanical AVR (i.e., ball in-Cage) or any mechanical MVR should have a INR therapeutic range of 2.5 to 3.5 (target INR of 3). Doreen GH, et al. Chest 2012, 141:7S-47S Concetta RA, et al. [facility] 2017, 70: 252-289 Performed By: #### 3 4528-0 #### [facility] IA [id number] [address] [place] [address] [place] PT Coag (PPP) [Time] 14.0 s High 9.7-13.0 [facility] Comment on above: Order Comment: Speci men Type: BLOOD SPECIMEN [facility] Address: [address] [place] [address] Performed By: #### 3 4528-0 #### [facility] [place] [id number] [address] [place] CNPNon 09-18-2023 CNPN Telephone (CATHMN) CELIA CHOPRA ([id number]) 1935 F Date Time Provider Department 09/18/23 PAVEL SYED CATHMIGUEL During your visit today, we recorded the following information about you: Antonia Gabriel 09/18/2023 3:07 PM Signed Patient called Dr. Syed's office in regard to upcoming work-up - Patient stated she has a wound on her left leg that is not getting any better - Patient stated her next stop is the wound center - Patient stated, per her local doctor, this wound could take 2-3 months to heal - Patient inquiring if this will effect her appointments and work-up at all - Patient requesting a call back - CELL Ed Barlow APRN.JENNIFER 09/19/2023 3:32 PM Signed Returned called--explained if there is no ACTIVE infection and she is not on antibiotics it should be ok to procedure but if she is we need to postpone. Regardless I would like a return call to better assess the situation. Dr polanco's office number provided. Ed Barlow APRN.FILM HISTORIAN Allergies As of Date: 09/18/2023 Noted Allergy Reaction IODINE 09/18/2021 14 - Other: See Comments Comments: Per pt. was used at the dentist and she developed redness of face. This was quite awhile ago. PERCODAN (OXYCODONE-ASPIRIN) 09/18/2021 14 - Other: See Comments Comments: Per pt caused hallucinations. Date Reviewed: 08/06/2023 Reviewed by: Rubi Garnica RN - Fully Assessed Reason for Visit: Appointment [186] Wound [Other] Primary Visit Diagnosis:IGLESIAS (dyspnea on exertion) [R06.09] Prescriptions as of 09/19/2023 - diphenhydrAMINE (BENADRYL) 50 mg capsule Take 1 capsule by mouth as directed for 2 doses. one (1) hour prior to exam. - empagliflozin (JARDIANCE) 10 mg tablet Take 1 tablet by mouth daily with breakfast. - Amoxicillin 500 mg tablet Take 500 mg by mouth two times a day. - spironolactone (ALDACTONE) 25 mg tablet Take 0.5 tablets by mouth once daily. - diphenhydrAMINE (BENADRYL) 50 mg capsule Take 1 capsule by mouth as directed for 1 dose. one (1) hour prior to CT. Repeat again prior to cath. - sodium chloride 0.9 %, flush, (BD POSIFLUSH) syringe Inject 2-10 mL intravenously as directed. For Echo procedure - potassium chloride ER (K-DUR, KLOR-CON) 10 mEq tablet Take 1 tablet by mouth once daily. - metoprolol tartrate, short acting, (LOPRESSOR) 50 mg tablet Take 1 tablet by mouth twice daily. - Docusate Sodium 250 mg capsule Take 250 mg by mouth once daily. - atorvastatin (LIPITOR) 20 mg tablet Take 20 mg by mouth daily at bedtime. - bumetanide (BUMEX) 2 mg tablet Take 2 mg by mouth once daily. - warfarin (COUMADIN) 2 mg tablet - zolpidem (AMBIEN) 10 mg Take 10 mg by mouth daily at bedtime. - famotidine (PEPCID) 10 mg tablet Take 10 mg by mouth twice daily. - multivit-min/iron/foli c/lutein (CENTRUM SILVER WOMEN ORAL) Take by mouth. 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] 12/11/2021 Severe tricuspid regurgitation [I07.1] 12/11/2021 Primary hypertension [I10] 12/11/2021 Atrial fibrillation, chronic (HCC) [I48.20] 12/11/2021 Acute on chronic diastolic CHF (congestive hear*12/12/2021 CKD (chronic kidney disease) [N18.9] 12/12/2021 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 Permanent atrial fibrillation (HCC) [I48.21] 08/06/2023 Non-ischemic cardiomyopathy (HCC) [I42.8] 08/06/2023 Nonrheumatic tricuspid valve regurgitation [I36*08/06/2023 Encounter Status:Closed by ANTONIA GABRIEL on 09/18/23 Normal [facility] Prothrombin Time INRon 09-18 INR Coag (PPP) [Relative time] 3.9 {INR} [place] [employer] Other Prothrombin Time INR [facility] [employer] Other Prothrombin Time INRon 09-10 INR Coag (PPP) [Relative time] 3.4 {INR} [facility] Other Prothrombin Time INR [facility] [employer] Other Prothrombin Time INRon 09-01 INR Coag (PPP) [Relative time] 4.2 {INR} [facility] Other Prothrombin Time INR [facility] [employer] Other CNPNon 08-14-2023 CNPN Telephone (CATHMN) CELIA CHOPRA ([id number]) 1935 F Date Time Provider Department 08/14/23 BEVERLY POLANCO During your visit today, we recorded the following information about you: Shama Prescott 08/14/2023 2:52 PM Signed I spoke w the patient Pt. TTVR Eval rescheduled to 09/23, 09/24 and 09/25. Mailing appt reminder to ptCurtis Singletary Allergies As of Date: 08/14/2023 Noted Allergy Reaction IODINE 09/18/2021 14 - Other: See Comments Comments: Per pt. was used at the dentist and she developed redness of face. This was quite awhile ago. PERCODAN (OXYCODONE-ASPIRIN) 09/18/2021 14 - Other: See Comments Comments: Per pt caused hallucinations. Date Reviewed: 08/06/2023 Reviewed by: Rubi Garnica, QUENTIN - Fully Assessed Reason for Visit: Appointment Rescheduled [1024] Prescriptions as of 08/14/2023 - empagliflozin (JARDIANCE) 10 mg tablet Take 1 tablet by mouth daily with breakfast. - Amoxicillin 500 mg tablet Take 500 mg by mouth two times a day. - spironolactone (ALDACTONE) 25 mg tablet Take 0.5 tablets by mouth once daily. - diphenhydrAMINE (BENADRYL) 50 mg capsule Take 1 capsule by mouth as directed for 1 dose. one (1) hour prior to CT. Repeat again prior to cath. - sodium chloride 0.9 %, flush, (BD POSIFLUSH) syringe Inject 2-10 mL intravenously as directed. For Echo procedure - potassium chloride ER (K-DUR, KLOR-CON) 10 mEq tablet Take 1 tablet by mouth once daily. - metoprolol tartrate, short acting, (LOPRESSOR) 50 mg tablet Take 1 tablet by mouth twice daily. - Docusate Sodium 250 mg capsule Take 250 mg by mouth once daily. - atorvastatin (LIPITOR) 20 mg tablet Take 20 mg by mouth daily at bedtime. - bumetanide (BUMEX) 2 mg tablet Take 2 mg by mouth once daily. - warfarin (COUMADIN) 2 mg tablet - zolpidem (AMBIEN) 10 mg Take 10 mg by mouth daily at bedtime. - famotidine (PEPCID) 10 mg tablet Take 10 mg by mouth twice daily. - multivit-min/iron/foli c/lutein (CENTRUM SILVER WOMEN ORAL) Take by mouth. 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] 12/11/2021 Severe tricuspid regurgitation [I07.1] 12/11/2021 Primary hypertension [I10] 12/11/2021 Atrial fibrillation, chronic (HCC) [I48.20] 12/11/2021 Acute on chronic diastolic CHF (congestive hear*12/12/2021 CKD (chronic kidney disease) [N18.9] 12/12/2021 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 Permanent atrial fibrillation (HCC) [I48.21] 08/06/2023 Non-ischemic cardiomyopathy (HCC) [I42.8] 08/06/2023 Nonrheumatic tricuspid valve regurgitation [I36*08/06/2023 Encounter Status:Closed by SHAMA PRESCOTT on 08/14/23 Normal [facility] CNOVon 08-13-2023 CNOV Office Visit (CATHMN ) CELIA CHOPRA ([id number]) 1935 F Date Time Provider Department 08/13/23 12:00 PM [facility] CATH[facility] During your visit today, we recorded the following information about you: Ed Barlow APRN.FILM HISTORIAN 08/13/2023 3:56 PM Signed [facility] Department of Cardiovascular Medicine SECTION OF INTERVENTIONAL CARDIOLOGY OUTPATIENT VISIT DATE August 13, 2023 OUTPATIENT VISIT TYPE ESTABLISHED FOLLOW UP Primary Product Development Actuary: Beverly Polanco MD Primary Care Physician: Haresh Lino DO Chief Complaint: Patient here for cardiac follow up evaluation History of Present Illness: Patient is a 88 year old female who presents for follow up an evaluation related to transcatheter tricuspid valve therapies. SUBJECTIVE: [place] CARDIOMYOPATHY QUESTIONNAIRE (KCCQ-12) Activity: A. Showering/bathing: Extremely limited Quite a bit limited Moderately limited Slightly limited Not at all limited Limited for other reasons or did not do the activity B. Walking 1 block on level ground: Extremely limited Quite a bit limited Moderately limited Slightly limited Not at all limited Limited for other reasons or did not do the activity C.Hurrying or jogging (as if to catch a bus): Extremely limited Quite a bit limited Moderately limited Slightly limited Not at all limited Limited for other reasons or did not do the activity 2. Over the past 2 weeks, how many times did you have swelling in your feet, ankles or legs when you woke up in the morning? Every morning 3 or more times per week but not every day 1-2 times per week less than once a week never over the past 2 weeks 3. Over the past 2 weeks, on average, how many times did you has fatigue limited your ability to do what you wanted? All of the time Several times per day At least once per day 3 or more times per week but not every day 1-2 times per week less than once a week never over the past 2 weeks 4. Over the past 2 weeks, on average, how many times has shortness of breath limited your ability to do what you wanted? All of the time Several times per day At least once per day 3 or more times per week but not every day 1-2 times per week less than once a week never over the past 2 weeks 5. Over the past 2 weeks, on average, how many times have your been forced to sleep sitting up in a chair or with at least 3 pillows to prop you up because of shortness of breath? Every night 3 or more times per week but not every day 1-2 times per week less than once a week never over the past 2 weeks 6. Over the past 2 weeks, how much has your heart failure limited your enjoyment of life? It has extremely limited my enjoyment of life it has limited my enjoyment of life quite a bit it has moderately limited my enjoyment of life It has slightly limited my enjoyment of life It has not limited my enjoyment of life at all 7. If you had to spend the rest of your life with your heart failure the way it is right now, how would you feel about this? Not at all satisfied Mostly dissatisfied Somewhat satisfied Mostly satisfied Completely satisfied 8. How much does your heart failure affect your lifestyle? Please indicated how your heart failure may have limited your participation in the following activities over the past 2 weeks? A. Hobbies, recreational activities Severely limited Limited quite a bit Moderately limited Slightly limited Did not limit at all Does not apply or did not do for other reasons. 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 C. Visiting family or friends out of your home Severely limited Limited quite a bit Moderately limited Slightly limited Did not limit at all Does not apply or did not do for other reasons. ROS: POSITIVES IN BOLD PAIN ASSESSMENT: complaints of acute or chronic pain GENERAL: fevers, chills, night sweats, weight gain or loss HEENT: changes in vision, hearing, nose bleeds, or bleeding gums NECK: neck pain, stiffness, or swelling, or swollen lymph nodes RESPIRATORY: shortness of breath, IGLESIAS, cough, wheezing, or hemoptysis CARDIOVASCULAR: chest pain, palpitations, claudication, orthopnea, or edema, ABD distension GI: difficulty swallowing, nausea, vomiting, diarrhea, constipation, or melena : frequency, urgency, or burning, and hematuria MUSCULOSKELETAL: joint pain, swelling, or stiffness SKIN: rashes, lesions, or tears PSYCH: sleep disturbance HEMATOLOGY/LYMPHOLOGY: prolonged bleeding or easy bruising NEURO: syncope, seizures, or numbness or tingling of hands or feet OBJECTIVE: CARDIOVASCULAR MEDICINE TESTING: E (more content not included)... Normal [facility] Comprehensive metabolic 2000 panelon 08-13-2023 Albumin [Mass/Vol] 4.6 g/dL Normal 3.9-4.[address] [facility] Comment on above: Order Comment: Speci men Type: BLOOD SPECIMENOrdering Facility: [facility] Address: [address] [place] [address] Performed By: #### 2 4323-8 ####[facility] LABCLIA [id number] [place] [address] [place] ALP [Catalytic activity/Vol] 114 U/L Normal 34-123 [facility] Comment on above: Order Comment: Speci men Type: BLOOD SPECIMENOrdering Facility: [facility] Address: [address] [place] [address] Performed By: #### 2 4323-8 ####[facility] LABCLIA [id number] [place] [address] [place] ALT [Catalytic activity/Vol] 12 U/L Normal 7-38 [facility] Comment on above: Order Comment: Speci men Type: BLOOD SPECIMENOrdering Facility: [facility] Address: [address] [place] [address] Performed By: #### 2 4323-8 ####[facility] LABCLIA [id number] [place] [address] [place] Anion gap [Moles/Vol] 10 mmol/L Normal 9-18 [facility] Comment on above: Order Comment: Speci men Type: BLOOD SPECIMENOrdering Facility: [facility] Address: [address] [place] [address] Performed By: #### 2 4323-8 ####[facility] LABCLIA [id number] [place] [address] [place] AST [Catalytic activity/Vol] 21 U/L Normal 13-35 [facility] Comment on above: Order Comment: Speci men Type: BLOOD SPECIMENOrdering Facility: [facility] Address: [address] [place] [address] Performed By: #### 2 4323-8 ####[facility] LABCLIA [id number] [place] [address] [place] Bilirubin [Mass/Vol] 0.8 mg/dL Normal 0.2-1.3 [facility] Comment on above: Order Comment: Speci men Type: BLOOD SPECIMENOrdering Facility: [facility] Address: [address] [place] [address] Performed By: #### 2 4323-8 ####[facility] LABCLIA [id number] [place] [address] [place] Calcium [Mass/Vol] 10.1 mg/dL Normal 8.5-10.[address] [facility] Comment on above: Order Comment: Speci men Type: BLOOD SPECIMENOrdering Facility: [facility] Address: [address] [place] [address] Performed By: #### 2 4323-8 ####[facility] LABCLIA [id number] [place] [address] [place] Chloride [Moles/Vol] 101 mmol/L Normal 97-105 [facility] Comment on above: Order Comment: Speci men Type: BLOOD SPECIMENOrdering Facility: [facility] Address: [address] [place] [address] Performed By: #### 2 4323-8 ####[facility] LABCLIA [id number] [place] [address] [place] CO2 [Moles/Vol] 31 mmol/L High 22-30 [facility] Comment on above: Order Comment: Speci men Type: BLOOD SPECIMENOrdering Facility: [facility] Address: [address] [place] [address] Performed By: #### 2 4323-8 ####[facility] LABCLIA [id number] [place] [address] [place] Creatinine [Mass/Vol] 1.13 mg/dL High 0.58-0.96 [facility] Comment on above: Order Comment: Speci men Type: BLOOD SPECIMENOrdering Facility: [facility] Address: [address] [place] [address] Performed By: #### 2 4323-8 ####[facility] LABCLIA [id number] [place] [address] [place] Creatinine and Glomerular filtration rate.predicted panel (S/P/Bld) 47 mL/min/1.73m??? Low >=60 [facility] Comment on above: Order Comment: Speci men Type: BLOOD SPECIMENOrdering Facility: [facility] Address: [address] [place] [address] Result Comment: Harriet mated Glomerular Filtration Rate (eGFR) is calculated using the 2020 CKD-EPI creatinine equation. This equation utilizes serum creatinine, sex, and age as parameters. The creatinine assay has traceable calibration to isotope dilution-mass spectrometry. Refer to KDIGO guidelines for clinical interpretation. In patients with unstable renal function, e.g. those with acute kidney injury, the eGFR may not accurately reflect actual GFR. Performed By: #### 2 4323-8 ####[facility] LABCLIA [id number] [place] [address] [place] Glucose [Mass/Vol] 115 mg/dL High 74-[address] [facility] Comment on above: Order Comment: Speci men Type: BLOOD SPECIMENOrdering Facility: [facility] Address: [address] [place] [address] Result Comment: The [place] Diabetes [employer] (ADA) provides guidance for cutoff values for fasting glucose and random glucose. The ADA defines fasting as no caloric intake for at least 8 hours. Fasting plasma glucose results between 100 to 125 mg/dL indicate increased risk for diabetes (prediabetes). Fasting plasma glucose results greater than or equal to 126 mg/dL meet the criteria for diagnosis of diabetes. In the absence of unequivocal hyperglycemia, results should be confirmed by repeat testing. In a patient with classic symptoms of hyperglycemia or hyperglycemic crisis, random plasma glucose results greater than or equal to 200 mg/dL meet the criteria for diagnosis of diabetes. Reference: Standards of Medical Care in Diabetes 2016, [place] [employer]. Diabetes Care. 2016.39(Suppl 1). Performed By: #### 2 4323-8 ####[facility] LABCLIA [id number] [place] [address] [place] Potassium [Moles/Vol] 4.0 mmol/L Normal 3.7-5.1 [facility] Comment on above: Order Comment: Speci men Type: BLOOD SPECIMENOrdering Facility: [facility] Address: [address] [place] [address] Performed By: #### 2 4323-8 ####[facility] LABCLIA [id number] [place] [address] [place] Protein [Mass/Vol] 8.0 g/dL Normal 6.3-8.[address] [facility] Comment on above: Order Comment: Speci men Type: BLOOD SPECIMENOrdering Facility: [facility] Address: [address] [place] [address] Performed By: #### 2 4323-8 ####[facility] LABCLIA [id number] [place] [address] [place] Sodium [Moles/Vol] 142 mmol/L Normal 136-[address] [facility] Comment on above: Order Comment: Speci men Type: BLOOD SPECIMENOrdering Facility: [facility] Address: [address] [place] [address] Performed By: #### 2 4323-8 ####[facility] LABCLIA [id number] [place] [address] [place] Urea nitrogen [Mass/Vol] 28 mg/dL High 7-21 [facility] Comment on above: Order Comment: Speci men Type: BLOOD SPECIMENOrdering Facility: [facility] Address: [address] [place] [address] Performed By: #### 2 4323-8 ####[facility] LABCLIA [id number] [place] [address] [place] Albumin [Mass/Vol] 4.6 g/dL 3.9 - 4.9 g/dL [facility] ALP [Catalytic activity/Vol] 114 U/L 34 - 123 U/L [facility] ALT [Catalytic activity/Vol] 12 U/L 7 - 38 U/L [facility] Anion gap [Moles/Vol] 10 mmol/L 9 - 18 mmol/L [facility] AST [Catalytic activity/Vol] 21 U/L 13 - 35 U/L [facility] Bilirubin [Mass/Vol] 0.8 mg/dL 0.2 - 1 .3 mg/dL [facility] Calcium [Mass/Vol] 10.1 mg/dL 8.5 - 10. 2 mg/dL [facility] Chloride [Moles/Vol] 101 mmol/L 97 - 10 5 mmol/L [facility] CO2 [Moles/Vol] 31 mmol/L High 22 - 30 mmol/L [facility] Creatinine [Mass/Vol] 1.13 mg/dL High 0.58 - 0.96 mg/dL [facility] Estimated Glomerular Filtration Rate 47 mL/min/1.73m Low >=60 mL/min/1.73m [facility] Glucose [Mass/Vol] 115 mg/dL High 74 - 99 mg/dL [facility] Potassium [Moles/Vol] 4.0 mmol/L 3.7 - 5.1 mmol/L [facility] Protein [Mass/Vol] 8.0 g/dL 6.3 - 8.0 g/dL [facility] Sodium [Moles/Vol] 142 mmol/L 136 - 144 mmol/L [facility] Urea nitrogen [Mass/Vol] 28 mg/dL High 7 - 21 mg/dL [facility] ECG COMPLETEon 08-13-2023 ECG COMPLETE Ventricular Rate : 6 9 BPM Atrial Rate : 69 BPM QRS Duration : 94 ms Q-T Interval : 402 ms QTC Calculation(Bazett) : 430 ms Calculated R [place] : 21 degrees Calculated T [place] : 40 degrees ATRIAL FIBRILLATION RSR' PATTERN IN V1 SUGGESTS INCOMPLETE RIGHT BUNDLE BRANCH BLOCK NONSPECIFIC ST ABNORMALITY ABNORMAL ECG Confirmed by JOSE NICOLE MD ([id number]) on 08/29/2023 2:37:33 PM NAME : CELIA CHOPRA PID : [id number] : 1935 Gender : Female Race : ORD : [id number] Procedure Date : Aug 13 2023 09:04:02 Edit Date : Aug 29 2023 14:37:36 Diagnosis: ATRIAL FIBRILLATION RSR' PATTERN IN V1 SUGGESTS INCOMPLETE RIGHT BUNDLE BRANCH BLOCK NONSPECIFIC ST ABNORMALITY ABNORMAL ECG Confirmed by JOSE NICOLE MD ([id number]) on 08/29/2023 2:37:33 PM Test Reason : Location : [facility] : [place] [address] Overread By : JOSE NICOLE MD Edited By : JSOE NICOLE MD Referred By : BEVERLY POLANCO Acquired by : LARRY THORNTON [facility] ECHOon 08-13-2023 Echocardiography Echocardiography Report: Transthoracic Echo [facility] J35 Date of service: 08/13/2023 10:23:24 AM MANAGER Ordering physician: BEVERLY POLANCO Indication: Triluminate Protocol Technologist: Tess Padilla Interpreting physician: Ginger Richards MD PATIENT: Name: MRS. CELIA CHOPRA : 1935 Age: 88 years Gender: F History of valvular heart disease and arrhythmia. Previous cardiovascular interventions: Mitral valve replacement (2012) CABG (2012) TMVR ([place]) (12/12/2021) Primary rhythm: atrial fib. Height: 167.60 cm BSA: 1.83 m Weight: 72.12 kg BMI: 25.7 kg/m Heart rate 76 bpm Blood pressure 158/81 mmHg Color Doppler was utilized to interrogate the cardiac valves assessed and spectral Doppler was utilized to determine the flow velocities and pressure gradients reported in this exam. MEASUREMENTS: Value Indexed Normal Max aortic dimension 3.6 cm Ao < 3.8 Left atrial volume 97 ml (4ch A-L) 53 ml/m Melonie <= 34 LV ID (diastole) 3.6 cm (2D) 1.97 cm/m LV ID (systole) 2.4 cm (2D) 1.32 cm/m IVS, leaflet tips 1.1 cm (2D) Posterior wall thickness 1.1 cm (2D) Left ventricular mass 126 g (2D) 69 g/m LV stroke volume 27 ml (2D 4-ch.) LVOT stroke volume 59 ml 33 ml/m LV end diastolic volume 49 ml (2D 4-ch.) 26.9 ml/m 29<=EDVi<62 LV end systolic volume 22 ml (2D 4-ch.) 12.3 ml/m Ejection Fraction 54 % (2D 4-ch.) EF > 54 FINDINGS: LEFT VENTRICLE The left ventricle is small. Left ventricular systolic function is normal. Left ventricular diastolic function was not evaluated due to AF and mitral valve surgery. Wall Motion: All scored segments are normal. RIGHT VENTRICLE The right ventricle is severely dilated. Right ventricular systolic function is moderately decreased. Tricuspid annular displacement is 1.9 cm. Estimated right ventricular systolic pressure is 63 mmHg consistent with moderate pulmonary hypertension. Estimated right atrial pressure is 8 mmHg based on IVC assessment. LEFT ATRIUM The left atrial cavity is severely dilated. RIGHT ATRIUM The right atrial cavity is severely dilated. Inferior Vena Cava: The inferior vena cava appears dilated measuring 2.1 cm. The vessel decreases greater than 50 percent with inspiration. MITRAL VALVE Post mitral valve replacement. Marina Nela S3 prosthetic valve size #26. There is trace mitral valve regurgitation. The peak mitral valve gradient is 15 mmHg. The mean mitral valve gradient is 5 mmHg. TRICUSPID VALVE There is moderately severe (3+) tricuspid valve regurgitation caused by annular dilatation. There is no thickening. MERVIN(PA) is 18 mm . AORTIC VALVE There is mild aortic valve stenosis caused by calcified valve. There is trace (trace - 1+) aortic valve regurgitation. Tricuspid aortic valve. There is moderate thickening. There is mild calcification. The peak gradient is 20 mmHg (peak velocity = 222.1 cm/s). The mean gradient is 10 mmHg. The LVOT mean velocity is 53.1 cm/s. The LVOT diameter is 2.0 cm. The aortic VTI is 46.1 cm. The mean velocity in the aortic valve is 142.5 cm/s. The dimensionless valve index is 0.41. AV area is 1.28 cm (0.70 cm /m ) by continuity, VTI. The LVOT stroke volume index is 33 ml/m . PULMONIC VALVE There is mild (1+ - 2+) pulmonic valve regurgitation. There is no thickening. The diameter of the right ventricular outflow tract is 2.6 cm. AORTA The visualized aorta is normal in size. Measurements - Sinus: 3.6 cm. INTERATRIAL SEPTUM There is no evidence of intracardiac shunting as detected by Doppler. INTERVENTRICULAR SEPTUM There is abnormal motion of the interventricular septum secondary to prior cardiac surgery. There is no flow through the interventricular septum as detected by Doppler. PERICARDIUM There is no pericardial effusion. CONCLUSIONS: - Exam indication: Triluminate Protocol - The left ventricle is small. Left ventricular systolic function is normal. EF = 54 5% (2D 4-ch.) - The right ventricle is severely dilated. Right ventricular systolic function is moderately decreased. - The left atrial cavity is severely dilated. - The right atrial cavity is severely dilated. - Post mitral valve replacement. Marina Nela S3 prosthetic mitral valve (size #26). There is trace mitral valve regurgitation. The peak gradient is 15 mmHg and the mean gradient is 5 mmHg. Prior peak/mean MV gradients 15/5 mmHg. Today's gradients averaged due to afib. - There is moderately severe (3+) tricuspid valve regurgitation caused by annular dilatation. - There is mild aortic valve stenosis caused by calcified valve. The peak gradient is 20 mmHg. The mean gradient is 10 mmHg. The dimensionless valve index is 0.41. Prior peak/mean AV gradients 13/8 mmHg. Today's gradients averaged due to afib. - Estimated right ventricular systolic pressure is 63 mmHg consistent with moderate pulmonary hypertension. Estimated ri (more content not included)... Normal [facility] XR CHEST 2V FRONTAL/LATon XR CHEST 2V FRONTAL/LAT * * *Final Report* * * DATE OF EXAM: Aug 13 2023 9:09AM DAPHNE [id number] - XR CHEST 2V FRONTAL/LAT / PROCEDURE REASON: multiple diagnoses * * * * Physician Interpretation * * * * EXAMINATION: CHEST RADIOGRAPH (2 VIEW FRONTAL and LATERAL) CLINICAL HISTORY: Encounter for preprocedural cardiovascular examination Nonrheumatic tricuspid valve regurgitation Chronic right-sided heart failure (HCC) IGLESIAS (dyspnea on exertion) MQ: XC2_6 EXAM DATE/TIME: 08/13/2023 9:09 AM COMPARISON: PA and lateral CXR dated 12/11/2021 RESULT: Lines, tubes, and devices: None. Lungs and pleura: There is vascular redistribution without overt edema. The lungs are clear of focal consolidation. No pleural effusion or pneumothorax is identified. Cardiomediastinal silhouette: Again demonstrated are postoperative changes of median sternotomy and mitral valve replacement. There has been interval placement of a stent graft in the mitral valve position. The cardiac silhouette remains enlarged. There are atherosclerotic calcifications in the aortic arch. Bones and soft tissues: There are mild degenerative changes in the thoracic spine. IMPRESSION: No acute disease identified in the lungs or mediastinum. Little interval change since the exam dated 12/11/2021. [employer]: NICK Transcribe Date/Time: Aug 13 2023 3:31P Dictated by : YUNIOR KRUSE MD This examination was interpreted and the report reviewed and electronically signed by: YUNIOR KRUSE MD on Aug 13 2023 3:35PM EST [id number] Normal [facility] CBC W Auto Differential pane l (Bld)on 08-06-2023 Basophils (Bld) [#/Vol] 0.07 10*3/uL Normal <0.11 [facility] Comment on above: Order Comment: Speci men Type: BLOOD SPECIMENOrdering Facility: [facility] Address: [address] [place] [address] Performed By: #### 5 7021-8 ####[facility] LABCLIA [id number] [place] [address] [place] Basophils/100 WBC (Bld) 0.9 % Normal [facility] Comment on above: Order Comment: Speci men Type: BLOOD SPECIMENOrdering Facility: [facility] Address: [address] [place] [address] Performed By: #### 5 7021-8 ####[facility] LABCLIA [id number] [place] [address] [place] Differential cell count method Nom (Bld) Auto Normal [facility] Comment on above: Order Comment: Speci men Type: BLOOD SPECIMENOrdering Facility: [facility] Address: [address] [place] [address] Performed By: #### 5 7021-8 ####[facility] LABCLIA [id number] [place] [address] [place] Eosinophils (Bld) [#/Vol] 0.27 10*3/uL Normal <0.46 [facility] Comment on above: Order Comment: Speci men Type: BLOOD SPECIMENOrdering Facility: [facility] Address: [address] [place] [address] Performed By: #### 5 7021-8 ####[facility] LABCLIA [id number] [place] [address] [place] Eosinophils/100 WBC (Bld) 3.6 % Normal [facility] Comment on above: Order Comment: Speci men Type: BLOOD SPECIMENOrdering Facility: [facility] Address: [address] [place] [address] Performed By: #### 5 7021-8 ####[facility] LABCLIA [id number] [place] [address] [place] Erythrocyte distribution width (RBC) [Ratio] 13.0 % Normal 11.5-15.0 [facility] Comment on above: Order Comment: Speci men Type: BLOOD SPECIMENOrdering Facility: [facility] Address: [address] [place] [address] Performed By: #### 5 7021-8 ####[facility] LABCLIA [id number] [place] [address] [place] Hematocrit (Bld) [Volume fraction] 40.2 % Normal 36.0-46.0 [facility] Comment on above: Order Comment: Speci men Type: BLOOD SPECIMENOrdering Facility: [facility] Address: [address] [place] [address] Performed By: #### 5 7021-8 ####[facility] LABCLIA [id number] [place] [address] [place] Hemoglobin (Bld) [Mass/Vol] 13.0 g/dL Normal 11.5-15.5 [facility] Comment on above: Order Comment: Speci men Type: BLOOD SPECIMENOrdering Facility: [facility] Address: [address] [place] [address] Performed By: #### 5 7021-8 ####[facility] LABCLIA [id number] [place] [address] [place] Immature granulocytes (Bld) [#/Vol] 10*3/uL Normal <0.10 [facility] Comment on above: Order Comment: Speci men Type: BLOOD SPECIMENOrdering Facility: [facility] Address: [address] [place] [address] Performed By: #### 5 7021-8 ####[facility] LABCLIA [id number] [place] [address] [place] Immature granulocytes/100 WBC (Bld) 0.1 % Normal [facility] Comment on above: Order Comment: Speci men Type: BLOOD SPECIMENOrdering Facility: [facility] Address: [address] [place] [address] Performed By: #### 5 7021-8 ####[facility] LABCLIA [id number] [place] [address] [place] Lymphocytes (Bld) [#/Vol] 1.50 10*3/uL Normal 1.00-4.00 [facility] Comment on above: Order Comment: Speci men Type: BLOOD SPECIMENOrdering Facility: [facility] Address: [address] [place] [address] Performed By: #### 5 7021-8 ####[facility] LABIA [id number] [place] [address] [place] Lymphocytes/100 WBC (Bld) 19.8 % Normal [facility] Comment on above: Order Comment: Speci men Type: BLOOD SPECIMENOrdering Facility: [facility] Address: [address] [place] [address] Performed By: #### 5 7021-8 ####[facility] LABIA [id number] [place] [address] [place] MCH (RBC) [Entitic mass] 30.9 pg Normal 26.0-34.0 [facility] Comment on above: Order Comment: Speci men Type: BLOOD SPECIMENOrdering Facility: [facility] Address: [address] [place] [address] Performed By: #### 5 7021-8 ####[facility] LABIA [id number] [place] [address] [place] MCHC (RBC) [Mass/Vol] 32.3 g/dL Normal 30.5-36.0 [facility] Comment on above: Order Comment: Speci men Type: BLOOD SPECIMENOrdering Facility: [facility] Address: [address] [place] [address] Performed By: #### 5 7021-8 ####[facility] LABIA [id number] [place] [address] [place] MCV (RBC) [Entitic vol] 95.5 fL Normal 80.0-100.0 [facility] Comment on above: Order Comment: Speci men Type: BLOOD SPECIMENOrdering Facility: [facility] Address: [address] [place], [place] [address] Performed By: #### 5 7021-8 ####[facility] LABCLIA [id number] [place] [address] [place] Monocytes (Bld) [#/Vol] 0.75 10*3/uL Normal <0.87 [facility] Comment on above: Order Comment: Speci men Type: BLOOD SPECIMENOrdering Facility: [facility] Address: [address] [place] [address] Performed By: #### 5 7021-8 ####[facility] LABCLIA [id number] [place] [address] [place] Monocytes/100 WBC (Bld) 9.9 % Normal [facility] Comment on above: Order Comment: Speci men Type: BLOOD SPECIMENOrdering Facility: [facility] Address: [address] [place] [address] Performed By: #### 5 7021-8 ####[facility] LABCLIA [id number] [place] [address] [place] Neutrophils (Bld) [#/Vol] 4.99 10*3/uL Normal 1.45-7.50 [facility] Comment on above: Order Comment: Speci men Type: BLOOD SPECIMENOrdering Facility: [facility] Address: [address] [place] [address] Performed By: #### 5 7021-8 ####[facility] LABCLIA [id number] [place] [address] [place] Neutrophils/100 WBC (Bld) 65.7 % Normal [facility] Comment on above: Order Comment: Speci men Type: BLOOD SPECIMENOrdering Facility: [facility] Address: [address] [place] [address] Performed By: #### 5 7021-8 ####[facility] LABCLIA [id number] [place] [address] [place] Nucleated RBC (Bld) [#/Vol] 10*3/uL Normal <0.01 [facility] Comment on above: Order Comment: Speci men Type: BLOOD SPECIMENOrdering Facility: [facility] Address: [address] [place] [address] Performed By: #### 5 7021-8 ####[facility] LABCLIA [id number] [place] [address] [place] Nucleated RBC/100 WBC (Bld) [Ratio] 0.0 /100 WBC Normal [facility] Comment on above: Order Comment: Speci men Type: BLOOD SPECIMENOrdering Facility: [facility] Address: [address] [place] [address] Performed By: #### 5 7021-8 ####[facility] LABIA [id number] [place] [address] [place] Platelet mean volume (Bld) [Entitic vol] 11.2 fL Normal 9.0-12.7 [facility] Comment on above: Order Comment: Speci men Type: BLOOD SPECIMENOrdering Facility: [facility] Address: [address] [place] [address] Performed By: #### 5 7021-8 ####[facility] LABIA [id number] [place] [address] [place] Platelets (Bld) [#/Vol] 200 10*3/uL Normal 150-400 [facility] Comment on above: Order Comment: Speci men Type: BLOOD SPECIMENOrdering Facility: [facility] Address: [address] [place] [address] Performed By: #### 5 7021-8 ####[facility] LABIA [id number] [place] [address] [place] RBC (Bld) [#/Vol] 4.21 10*6/uL Normal 3.90-5.20 [facility] Comment on above: Order Comment: Speci men Type: BLOOD SPECIMENOrdering Facility: [facility] Address: [address] [place] [address] Performed By: #### 5 7021-8 ####[facility] LABIA [id number] [place] [address] [place] WBC (Bld) [#/Vol] 7.59 10*3/uL Normal 3.70-11.00 [facility] Comment on above: Order Comment: Speci men Type: BLOOD SPECIMENOrdering Facility: [facility] Address: [address] [place] [address] Performed By: #### 5 7021-8 ####[facility] LABIA [id number] [place] [address] [place] CK TOTAL AND CK-MBon 023 CK [Catalytic activity/Vol] 57 U/L Normal 42-196 [facility] Comment on above: Order Comment: Speci men Type: BLOOD SPECIMENOrdering Facility: [facility] Address: [address] [place] [address] Performed By: #### 2 4323-8, 05848-1, 2324-2, CKCKMB ####[facility] [id number] [place] [address] [place] CK.MB [Mass/Vol] 1.8 ng/mL Normal <4.4 [facility] Comment on above: Order Comment: Speci men Type: BLOOD SPECIMENOrdering Facility: [facility] Address: [address] [place] [address] Performed By: #### 2 4323-8, 61928-0, 2324-2, CKCKMB ####[facility] LABIA [id number] [place] [address] [place] CK.MB [Ratio] Normal [facility] Comment on above: Order Comment: Speci men Type: BLOOD SPECIMENOrdering Facility: [facility] Address: [address] [place] [address] Result Comment: CK M B % not reported with CK <100 U/L. Performed By: #### 2 4323-8, 74722-0, 2324-2, CKCKMB ####[facility] LABCLIA [id number] [address] [place] CNOVon 08-06-2023 CNOV Office Visit (CARD C HF LILLIAN) CELIA CHOPRA ([id number]) 1935 F Date Time Provider Department 08/06/23 1:15 PM Esthela RAMOS CARD CHF LILLIAN During your visit today, we recorded the following information about you: Pulse Blood pressure Weight Height 77/minute 158/81 72.1 kg 1.676 m Esthela Ramos MD 08/06/2023 4:02 PM Signed [facility] SECTION OF HEART FAILURE and CARDIAC TRANSPLANT MEDICINE OUTPATIENT VISIT DATE August 06, 2023 OUTPATIENT VISIT TYPE Consultation PRIMARY CARE PHYSICIAN: Haresh Lino ([facility]) [address] [place] [address] CHIEF COMPLAINT: Tricuspid regurgitation NURSING INTAKE (Patient?s concerns and/or recent hospitalizations/ER visits): Celia Chopra is a 88 year old female from [place], [place] referred by Ed Barlow APRN.CNP for cardiac evaluation of TR. 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 single vessel CABG (left radial to the diagonal branch of the LAD) in 2013 at [place] Chronic AF (warfarin) CKD3 HF Nursing Assessment: Interim Hospitalizations and/or ER visits: Chest Pain: No Skipping or irregular heartbeats: No Shortness of breath at rest: No Shortness of breath with activity: No Cough: No Waking up in the middle of the night gasping for air: No Lightheadedness or dizziness: No Feeling like you are going to pass out: Actually passing out: No Poor energy level: Yes Unintentional weight gain: No Unintentional weight loss: No Swelling in your legs,feet, abdomen: Yes, b/l lower extremities and abdomen Filling up quickly when you eat: No HISTORY OF PRESENT ILLNESS: Bumex 2 mg daily. Can run to the phone and not be short of breath. Can walk down the block and get short of breath. Uphill walks make her short of breath. Gardening this summer. Able to do chores around the house. Lives in [place]. Does collect fluid in belly and legs. No hospitalizations or ED visits for volume overload. Has gained 3 lbs in the last week. Primary Product Development Actuary is Dr. Polacno. Has not been on MRA or SGLT2i in the past. PAST MEDICAL HISTORY Diagnosis Date Atrial fibrillation (HCC) Chronic kidney disease Rheumatic fever Rheumatic mitral valve disease Tricuspid regurgitation PAST SURGICAL HISTORY Procedure Laterality Date PAST SURGICAL HISTORY OF 04/2013 CABGx1/MVR/MAZE TMVR 12/12/2021 SOCIAL HISTORY Social History Tobacco Use Smoking status: Former Packs/day: 1.50 Years: 47.00 Additional pack years: 0.00 Total pack years: 70.50 Types: Cigarettes Quit date: 2000 Years since quittin.9 Smokeless tobacco: Never Substance Use Topics Alcohol use: Yes Alcohol/week: 14.0 standard drinks of alcohol Types: 14 Glasses of Wine (5oz) per week Drug use: Never No family history on file. ALLERGIES: ALLERGIES Allergen Reactions Iodine Other: See Comments Per pt. was used at the dentist and she developed redness of face. This was quite awhile ago. Percodan [Oxycodone* Other: See Comments Per pt caused hallucinations. CURRENT MEDICATIONS: diphenhydrAMINE (BENADRYL) 50 mg capsuleTake 1 capsule by mouth as directed for 1 dose. one (1) hour prior to CT. Repeat again prior to cath.Disp: 2 capsuleRfl: 0 sodium chloride 0.9 %, flush, (BD POSIFLUSH) syringeInject 2-10 mL intravenously as directed. For Echo procedureDisp: 10 mLRfl: 0 potassium chloride ER (K-DUR, KLOR-CON) 10 mEq tabletTake 1 tablet by mouth once daily.Disp: Rfl: metoprolol tartrate, short acting, (LOPRESSOR) 50 mg tabletTake 1 tablet by mouth twice daily.Disp: Rfl: Docusate Sodium 250 mg capsuleTake 250 mg by mouth once daily.Disp: Rfl: atorvastatin (LIPITOR) 20 mg tabletTake 20 mg by mouth daily at bedtime.Disp: Rfl: bumetanide (BUMEX) 2 mg tabletTake 2 mg by mouth once daily.Disp: Rfl: warfarin (COUMADIN) 2 mg tabletDisp: Rfl: zolpidem (AMBIEN) 10 mgTake 10 mg by mouth daily at bedtime.Disp: Rfl: famotidine (PEPCID) 10 mg tabletTake 10 mg by mouth twice daily.Disp: Rfl: multivit-min/iron/foli c/lutein (CENTRUM SILVER WOMEN ORAL)Take by mouth.Disp: Rfl: REVIEW OF SYSTEMS: CONSTITUTION: Positive for: Recent weight change Negative for: Fever and Night sweats HEENT: Negative for: Hearing loss RESPIRATORY: Positive for: Difficulty breathing Negative for: Cough GASTROINTESTINAL: Positive for: Abdominal distention Negative for: Melena, Nausea, Diarrhea and Early satiety MUSCULOSKELETAL: Negative for: Arthralgias and Myalgias NEUROLOGICAL: Negative for: Headaches and Dizziness SKIN: EYES: Positive for: Visual disturbance CARDIOVASCULAR: Negative for: Chest pain, Leg swelling and Pre-syncope GENITOURINARY: Negative for: Difficulty urinating (more content not included)... Normal [facility] Comprehensive metabolic 2000 panelon 08-06-2023 Albumin [Mass/Vol] 4.6 g/dL Normal 3.9-4.[address] [facility] Comment on above: Order Comment: Speci men Type: BLOOD SPECIMENOrdering Facility: [facility] Address: [address] [place] [address] Performed By: #### 2 4323-8, 16827-0, 2324-2, CKCKMB ####[facility] LABCLIA [id number] [place] [address] [place] ALP [Catalytic activity/Vol] 115 U/L Normal 34-123 [facility] Comment on above: Order Comment: Speci men Type: BLOOD SPECIMENOrdering Facility: [facility] Address: [address] [place] [address] Performed By: #### 2 4323-8, 69218-3, 2324-2, CKCKMB ####[facility] LABCLIA [id number] [place] [address] [place] ALT [Catalytic activity/Vol] 13 U/L Normal 7-38 [facility] Comment on above: Order Comment: Speci men Type: BLOOD SPECIMENOrdering Facility: [facility] Address: [address] [place] [address] Performed By: #### 2 4323-8, 19124-3, 2324-2, CKCKMB ####[facility] LABCLIA [id number] [place] [address] [place] Anion gap [Moles/Vol] 13 mmol/L Normal 9-18 [facility] Comment on above: Order Comment: Speci men Type: BLOOD SPECIMENOrdering Facility: [facility] Address: [address] [place] [address] Performed By: #### 2 4323-8, 59533-0, 2324-2, CKCKMB ####[facility] LABCLIA [id number] [place] [address] [place] AST [Catalytic activity/Vol] 25 U/L Normal 13-35 [facility] Comment on above: Order Comment: Speci men Type: BLOOD SPECIMENOrdering Facility: [facility] Address: [address] [place] [address] Performed By: #### 2 4323-8, 92267-0, 2324-2, CKCKMB ####[facility] LABCLIA [id number] [place] [address] [place] Bilirubin [Mass/Vol] 1.0 mg/dL Normal 0.2-1.3 [facility] Comment on above: Order Comment: Speci men Type: BLOOD SPECIMENOrdering Facility: [facility] Address: [address] [place] [address] Performed By: #### 2 4323-8, 93455-7, 2324-2, CKCKMB ####[facility] LABCLIA [id number] [place] [id number] [place] Calcium [Mass/Vol] 10.0 mg/dL Normal 8.5-10.[address] [facility] Comment on above: Order Comment: Speci men Type: BLOOD SPECIMENOrdering Facility: [facility] Address: [address] [place] [address] Performed By: #### 2 4323-8, 26558-9, 2324-2, CKCKMB ####[facility] LABCLIA [id number] [place] [address] [place] Chloride [Moles/Vol] 100 mmol/L Normal 97-105 [facility] Comment on above: Order Comment: Speci men Type: BLOOD SPECIMENOrdering Facility: [facility] Address: [address] [place] [address] Performed By: #### 2 4323-8, 26430-0, 2324-2, CKCKMB ####[facility] LABIA [id number] [place] [address] [place] CO2 [Moles/Vol] 28 mmol/L Normal 22-30 [facility] Comment on above: Order Comment: Speci men Type: BLOOD SPECIMENOrdering Facility: [facility] Address: [address] [place] [address] Performed By: #### 2 4323-8, 89676-1, 2324-2, CKCKMB ####[facility] LABCLIA [id number] [place] [address] [place] Creatinine [Mass/Vol] 0.95 mg/dL Normal 0.58-0.96 [facility] Comment on above: Order Comment: Speci men Type: BLOOD SPECIMENOrdering Facility: [facility] Address: [address] [place] [address] Performed By: #### 2 4323-8, 27097-9, 2324-2, CKCKMB ####[facility] LABIA [id number] [place] [address] [place] Creatinine and Glomerular filtration rate.predicted panel (S/P/Bld) 58 mL/min/1.73m??? Low >=60 [facility] Comment on above: Order Comment: Ezekiel manley Type: BLOOD SPECIMENOrdering Facility: [facility] Address: [address] [place] [address] Result Comment: Harriet mated Glomerular Filtration Rate (eGFR) is calculated using the 2020 CKD-EPI creatinine equation. This equation utilizes serum creatinine, sex, and age as parameters. The creatinine assay has traceable calibration to isotope dilution-mass spectrometry. Refer to KDIGO guidelines for clinical interpretation. In patients with unstable renal function, e.g. those with acute kidney injury, the eGFR may not accurately reflect actual GFR. Performed By: #### 2 4323-8, 26028-6, 2324-2, CKCKMB ####[facility] LABCLIA [id number] [place] [address] [place] Glucose [Mass/Vol] 110 mg/dL High 74-[address] [facility] Comment on above: Order Comment: Ezekiel manley Type: BLOOD SPECIMENOrdering Facility: [facility] Address: [address] [place] [address] Result Comment: The [place] [employer] (ADA) provides guidance for cutoff values for fasting glucose and random glucose. The ADA defines fasting as no caloric intake for at least 8 hours. Fasting plasma glucose results between 100 to 125 mg/dL indicate increased risk for diabetes (prediabetes). Fasting plasma glucose results greater than or equal to 126 mg/dL meet the criteria for diagnosis of diabetes. In the absence of unequivocal hyperglycemia, results should be confirmed by repeat testing. In a patient with classic symptoms of hyperglycemia or hyperglycemic crisis, random plasma glucose results greater than or equal to 200 mg/dL meet the criteria for diagnosis of diabetes. Reference: Standards of Medical Care in Diabetes 2016, [place] [employer]. Diabetes Care. 2016.39(Suppl 1). Performed By: #### 2 4323-8, 87185-4, 2324-2, CKCKMB ####[facility] LABCLIA [id number] [address] [address] [place] Potassium [Moles/Vol] 3.6 mmol/L Low 3.7-5.1 [facility] Comment on above: Order Comment: Speci men Type: BLOOD SPECIMENOrdering Facility: [facility] Address: [address] [place] [address] Performed By: #### 2 4323-8, 36927-3, 2324-2, CKCKMB ####[facility] LABCLIA [id number] [place] [address] [place] Protein [Mass/Vol] 7.9 g/dL Normal 6.3-8.[address] [facility] Comment on above: Order Comment: Speci men Type: BLOOD SPECIMENOrdering Facility: [facility] Address: [address] [place] [address] Performed By: #### 2 4323-8, 60251-2, 2323-2, CKCKMB ####[facility] LABCLIA [id number] [place] [address] [place] Sodium [Moles/Vol] 141 mmol/L Normal 136-[address] [facility] Comment on above: Order Comment: Speci men Type: BLOOD SPECIMENOrdering Facility: [facility] Address: [address] [place] [address] Performed By: #### 2 4323-8, 70482-5, 2324-2, CKCKMB ####[facility] LABCLIA [id number] [place] [id number] [place] Urea nitrogen [Mass/Vol] 25 mg/dL High 7-21 [facility] Comment on above: Order Comment: Speci men Type: BLOOD SPECIMENOrdering Facility: [facility] Address: [address] [place] [address] Performed By: #### 2 4323-8, 01165-2, 2324-2, CKCKMB ####[facility] LABCLIA [id number] [place] [address] [place] GGT SerPl-cCncon 08-06-2023 Gamma glutamyl transferase [Catalytic activity/Vol] 25 U/L Normal 6-46 [facility] Comment on above: Order Comment: Speci men Type: BLOOD SPECIMENOrdering Facility: [facility] Address: [address] [place] [address] Performed By: #### 2 4323-8, 26854-5, 232-2, CKCKMB ####[facility] LABCLIA [id number] [place] [address] [place] HIGH SENSITIVITY TROPONIN To n 08-06-2023 Troponin T.cardiac High sensitivity method [Mass/Vol] 22 ng/L High <12 [facility] Comment on above: Order Comment: [facility] Type: BLOOD SPECIMENOrdering Facility: [facility] Address: [address] [place] [address] Result Comment: When assessing risk for acute coronary syndromes: In patients undergoing blood draw greater than or equal to 2 hours from symptom onset, with history of very low to moderate risk and non-ischemic ECG, an initial hs-Troponin T less than 12 ng/L AND a 1 hour delta hs-Troponin T less than 3 ng/L should be considered very low risk for 30 day MACE. Performed By: #### 3 084-1, HSTNT ####[facility] LABIA [id number] [place] [address] [place] NT-proBNP SerPl-mCncon 08-06 Natriuretic peptide.B prohormone N-Terminal [Mass/Vol] 1289 pg/mL High <450 [facility] Comment on above: Order Comment: Speci men Type: BLOOD SPECIMENOrdering Facility: [facility] Address: [address] [place] [address] Performed By: #### 2 4323-8, 96010-6, 2324-2, CKCKMB ####[facility] LABCLIA [id number] [place] [id number] [place] PT panel Coag (PPP)on 2022 INR Coag (PPP) [Relative time] 2.8 {INR} High 0.9-1.3 [facility] Comment on above: Order Comment: Speci men Type: BLOOD SPECIMENOrdering Facility: [facility] Address: [place] [address] Result Comment: Annabel min K Antagonist (VKA) Therapeutic Range: INR 2 to 3 (Target INR of 2.5) Note: For patients treated with VKA drugs, such as warfarin, the [place] [employer] 2012 Guideline recommends a therapeutic INR range of 2 to 3 (target INR of 2.5). This recommendation includes high-risk patients with antiphospholipid syndrome with previous arterial or venous thromboembolism, current-generation mechanical or bioprosthetic aortic heart valve replacement. Note: Patients with mechanical aortic valve replacement and additional risk factors for thromboembolic events (atrial fibrillation, previous thromboembolism, LV dysfunction, hypercoagulable conditions) or an older generation mechanical AVR (i.e., ball in-Cage) or any mechanical MVR should have a INR therapeutic range of 2.5 to 3.5 (target INR of 3). Doreen GH, et al. Chest 2012, 141:7S-47S Concetta RA, et al. [facility] 2017, 70: 252-289 Performed By: #### 3 4528-0 ####[facility] LABIA [id number] [place] [id number] [place] PT Coag (PPP) [Time] 27.1 s High 9.7-13.0 [facility] Comment on above: Order Comment: Speci men Type: BLOOD SPECIMENOrdering Facility: [facility] Address: [place] [address] Performed By: #### 3 4528-0 ####[facility] LABIA [id number] [place] [address] [place] OF JESSI Urate SerPl-mCncon 3 Urate [Mass/Vol] 7.1 mg/dL High 2.5-6.6 Joe palomo [facility] Comment on above: Order Comment: Speci men Type: BLOOD SPECIMENOrdering Facility: [facility] Address: [address] [place] [address] Performed By: #### 3 [id number], HSTNT ####[facility] LABCLIA [id number] KIAN PEARCEDESK [id number] OF JESSI CNPNon 06-06-2023 CNPN Telephone (CATHMN) CELIA CHOPRA ([id number]) 1935 F Date Time Provider Department 06/06/23 ED [place] CATHMN During your visit today, we recorded the following information about you: Richar Garcia 06/06/2023 2:06 PM Signed Spoke with pt to schedule TTVR workup Pt stated needs to be after Thanksgiving Agrees to dates of 08/13,08/20, and 08/27 Printed and sent appt info to pt via mail Allergies As of Date: 06/06/2023 Noted Allergy Reaction IODINE 09/18/2021 14 - Other: See Comments Comments: Per pt. was used at the dentist and she developed redness of face. This was quite awhile ago. PERCODAN (OXYCODONE-ASPIRIN) 09/18/2021 14 - Other: See Comments Comments: Per pt caused hallucinations. Date Reviewed: 04/04/2023 Reviewed by: Yesenia Horne, QUENTIN - Fully Assessed Prescriptions as of 06/06/2023 - diphenhydrAMINE (BENADRYL) 50 mg capsule Take 1 capsule by mouth as directed for 1 dose. one (1) hour prior to CT. Repeat again prior to cath. - sodium chloride 0.9 %, flush, (BD POSIFLUSH) syringe Inject 2-10 mL intravenously as directed. For Echo procedure - potassium chloride ER (K-DUR, KLOR-CON) 10 mEq tablet Take 1 tablet by mouth once daily. - metoprolol tartrate, short acting, (LOPRESSOR) 50 mg tablet Take 1 tablet by mouth twice daily. - Docusate Sodium 250 mg capsule Take 250 mg by mouth once daily. - atorvastatin (LIPITOR) 20 mg tablet Take 20 mg by mouth daily at bedtime. - bumetanide (BUMEX) 2 mg tablet Take 2 mg by mouth once daily. - warfarin (COUMADIN) 2 mg tablet - zolpidem (AMBIEN) 10 mg Take 10 mg by mouth daily at bedtime. - famotidine (PEPCID) 10 mg tablet Take 10 mg by mouth twice daily. - multivit-min/iron/foli c/lutein (CENTRUM SILVER WOMEN ORAL) Take by mouth. 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] 12/11/2021 Severe tricuspid regurgitation [I07.1] 12/11/2021 Essential hypertension [I10] 12/11/2021 Atrial fibrillation, chronic (HCC) [I48.20] 12/11/2021 Acute on chronic diastolic CHF (congestive hear*12/12/2021 CKD (chronic kidney disease) [N18.9] 12/12/2021 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 Encounter Status:Closed by RICHAR GARCIA on 06/06/23 Normal [facility] Prothrombin Time INRon 06-03 INR Coag (PPP) [Relative time] 2.1 {INR} [place] [employer] Other Prothrombin Time INR [facility] [employer] Other Fernando 05-27-2023 L -- ---- Specimen: [id number] Received: 05/28/23 Status: CHELSY Nancy Num: [id number] Spec Type: Surgical Subm Dr: Rasta Romero MD Tissues: A Skin-Other than Cyst, tag, debridement or plastic repair (LT THIGH) Procedures: VARSHA /JOHN , Alfredo/Rhina Olivares ---- Age/ Patient Sex Location Account Attending Physician ---- Celia Chopra 88/F NOEMI [id number] Rasta Romero MD ---- SPEC NUM: [id number] RECD: 05/28/23 STATUS: CHELSY CHENEY NUM: [id number] MECCA: 05/27/[address] [facility] [address]: Rasta Romero MD ENTERED: 05/28/[address] [facility] [address]: JEAN MARIE TYPE: Surgical DEPT: S ORDERED: MART 1/JOHN A/, HE, Gross/Micro L4 ORDERED: MART 1/JOHN A/, HE, Gross/Micro L4 Pathological Diagnosis Skin, left leg, reexcision: - Skin with ulceration, granulation tissue formation and scar, no residual melanoma identified Note: Immunostaining with Melan-1 performed on A1 to A19 and supports the above diagnosis Clinical Information Nonhealing lesion, reexcision biopsy?see path, 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 There is a staple at one end designating 12:00. The 12-3 to 6:00 margin is inked black, the 6-9 o'clock margin is inked blue and the 9-12 o'clock margin is inked yellow. The specimen is sectioned transversely from 12-6 o'clock. Licensed Pharmacist sections are submitted in 19 cassettes as follows: A1 - 12:00 radial tip A2 - Bisected transverse section A3-A4 - Bisected transverse section A5-A6 - Bisected transverse section ---- Specimen: [id number] Received: 05/28/23 Status: CHELSY Cheney Num: [id number] Spec Type: Surgical Subm Dr: Rasta Romero MD Tissues: A Skin-Other than Cyst, tag, debridement or plastic repair (LT THIGH) Procedures: MART , , Gross/Micro L4 ---- Patient: Celia Chopra [id number] (Continued) ---- Specimen: [id number] Received: 05/28/23 (Continued) Gross Description (Continued) Signed (signature on file) Betito Schulte MD 06/03/23 1623 ---- Specimen: [id number] Received: 05/28/23 Status: CHELSY Cheney Num: [id number] Spec Type: Surgical Subm Dr: Rasta Romero MD Tissues: A Skin-Other than Cyst, tag, debridement or plastic repair (LT THIGH) Procedures: MART , , Gross/Micro L4 ---- Patient: Celia Chopra [id number] (Continued) ---- Specimen: [id number] Received: 05/28/23 (Continued) Gross Description (Continued) A7-A8 - Bisected transverse section A9-A10 - Bisected transverse section A11-A12 - Bisected transverse section A13-A14 - Bisected transverse section A15-A16 - Bisected transverse section A17-A18 - Bisected transverse section A19 - 6:00 radial tip Microscopic Description 19 H E slides reviewed. The microscopic examination confirms the diagnosis. CPT Codes 41837 ---- ---- Specimen: [id number] Received: 05/28/23 Status: CHELSY Cheney Num: [id number] Spec Type: Surgical Subm Dr: Rasta Romero MD Tissues: A Skin-Other than Cyst, tag, debridement or plastic repair (LT THIGH) Procedures: MART /, , Gross/Micro L4 ---- Patient: Celia Chopra [id number] (Continued) ---- Signed (signature on file) Betito Schulte MD 06/03/231622 Normal [facility] Prothrombin Time INRon 04-23 INR Coag (PPP) [Relative time] 1.9 {INR} [place] [employer] Other Prothrombin Time INR [place] [employer] Other Sandi 04-17-2023 CNPN Telephone [facility] CELIA CHOPRA ([id number]) 1935 F Date Time Provider Department 04/17/23 BEVERLY POLANCO During your visit today, we recorded the following information about you: Anyi Cee 04/17/2023 1:02 PM Signed Celia is calling Beverly Polanco MD today regarding procedure discussed at her 04/04/23 appointment. She has decided to go forward with the procedure and would ask provider what her next steps would be. Please call to advise. Patient has been identified by name and birthdate. Person calling: self Return call to: verified cell phone below Patient's phone: [phone] (home) [phone] (cell) Was an appointment scheduled: No Closing statement: Results or non-symptom based questions: Thank you for calling [facility], your call will be returned within the next business day. DEEDEE Catherine Patient Operations Support Team (POST) Please note: Please do not re-route phone encounters back to this agent, please send to appropriate office pool. Agent works in operations center and cannot complete patient specific tasks. 5 Allergies As of Date: 04/17/2023 Noted Allergy Reaction IODINE 09/18/2021 14 - Other: See Comments Comments: Per pt. was used at the dentist and she developed redness of face. This was quite awhile ago. PERCODAN (OXYCODONE-ASPIRIN) 09/18/2021 14 - Other: See Comments Comments: Per pt caused hallucinations. Date Reviewed: 04/04/2023 Reviewed by: Yesenia Horne, RN - Fully Assessed Reason for Visit: Patient Update [1234] Cmt: Move Forward With Procedure Discussed at 04/04/23 OV Prescriptions as of 05/03/2023 - potassium chloride ER (K-DUR, KLOR-CON) 10 mEq tablet Take 1 tablet by mouth once daily. - metoprolol tartrate, short acting, (LOPRESSOR) 50 mg tablet Take 1 tablet by mouth twice daily. - Docusate Sodium 250 mg capsule Take 250 mg by mouth once daily. - atorvastatin (LIPITOR) 20 mg tablet Take 20 mg by mouth daily at bedtime. - bumetanide (BUMEX) 2 mg tablet Take 2 mg by mouth once daily. - warfarin (COUMADIN) 2 mg tablet - zolpidem (AMBIEN) 10 mg Take 10 mg by mouth daily at bedtime. - famotidine (PEPCID) 10 mg tablet Take 10 mg by mouth twice daily. - multivit-min/iron/foli c/lutein (CENTRUM SILVER WOMEN ORAL) Take by mouth. 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] 11/07/2021 11/07/2021 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] 12/11/2021 Severe tricuspid regurgitation [I07.1] 12/11/2021 Essential hypertension [I10] 12/11/2021 Atrial fibrillation, chronic (HCC) [I48.20] 12/11/2021 Acute on chronic diastolic CHF (congestive hear*12/12/2021 CKD (chronic kidney disease) [N18.9] 12/12/2021 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 Encounter Status:Closed by ANYI CEE on 05/03/23 Normal [facility] CNOVon 04-04-2023 CNOV Office Visit (CATHMN ) CELIA CHOPRA ([id number]) 1935 F Date Time Provider Department 04/04/23 1:15 PM BEVERLY POLANCO CATHMN During your visit today, we recorded the following information about you: Pulse Respiration Blood pressure Weight 73/minute 14/minute 165/93 70.3 kg Height 1.689 m Beverly Polanco MD 04/05/2023 6:05 AM Signed [facility] Department of Cardiovascular Medicine SECTION OF INTERVENTIONAL CARDIOLOGY OUTPATIENT VISIT DATE April 04, 2023 OUTPATIENT VISIT TYPE ESTABLISHED PRIMARY CARE PHYSICIAN: Haresh Lino ([facility]) [address] [id number] REFERRING PHYSICIAN: No referring provider defined for this encounter. CHIEF COMPLAINT: No chief complaint on file. HISTORY OF PRESENT ILLNESS: Ms. Chopra is a 88 year old female who presents today for follow-up visit after mitral valve in valve about a year and a half ago. Initially she was really sick when we saw her. She was really compensated in almost cardiogenic shock. Now she is much better. She is able to do her daily activities and also remain socially active. She is also taking care of her . She occasionally gets tired and short of breath moderately heavy exertion. Her quality of life is reasonable. She does have significant tricuspid regurgitation. We had also not close the septum at the time of mitral valve placement because of fairly significant increase in the LA pressure. The flow through the septum does not. Quedari significant most recent echocardiogram. She has very significant tricuspid regurgitation. We talked about doing percutaneous tricuspid valve replacement. I looked at her prior CT and the annulus is larger than allowed for tricuspid valve replacement but it is possible that the remodeling of the annulus may have happened after the MVR just enough for tricuspid valve replacement. She denies chest pain, PND, palpitations, lightheadedness, syncope, claudication. She has 2+ leg edema. PAST CARDIAC HISTORY: See HPI PAST MEDICAL HISTORY Diagnosis Date Rheumatic fever Rheumatic mitral valve disease PAST SURGICAL HISTORY Procedure Laterality Date PAST SURGICAL HISTORY OF 04/2013 CABGx1/MVR/MAZE TMVR 12/12/2021 SOCIAL HISTORY Social History Tobacco Use Smoking status: Former Packs/day: 1.50 Years: 47.00 Total pack years: 70.50 Types: Cigarettes Quit date: 2000 Years since quittin.5 Smokeless tobacco: Never Substance Use Topics Alcohol use: Yes Alcohol/week: 14.0 standard drinks of alcohol Types: 14 Glasses of Wine (5oz) per week Drug use: Never No family history on file. ALLERGIES: ALLERGIES Allergen Reactions Iodine Other: See Comments Per pt. was used at the dentist and she developed redness of face. This was quite awhile ago. Percodan [Oxycodone* Other: See Comments Per pt caused hallucinations. MEDICATIONS: Current Outpatient Medications Medication Sig potassium chloride ER (K-DUR, KLOR-CON) 10 mEq tablet Take 1 tablet by mouth once daily. metoprolol tartrate, short acting, (LOPRESSOR) 50 mg tablet Take 1 tablet by mouth twice daily. Docusate Sodium 250 mg capsule Take 250 mg by mouth once daily. atorvastatin (LIPITOR) 20 mg tablet Take 20 mg by mouth daily at bedtime. bumetanide (BUMEX) 2 mg tablet Take 2 mg by mouth once daily. warfarin (COUMADIN) 2 mg tablet zolpidem (AMBIEN) 10 mg Take 10 mg by mouth daily at bedtime. famotidine (PEPCID) 10 mg tablet Take 10 mg by mouth twice daily. multivit-min/iron/foli c/lutein (CENTRUM SILVER WOMEN ORAL) Take by mouth. Current Facility-Administered Medications Medication Dose Route Frequency perflutren lipid microspheres 1.3 mL in NaCl (PF) 0.9% 10 mL injection (DEFINITY) INTRAVENOUS DIRECTED PRN sodium chloride 0.9 % (flush) 10 mL (BD POSIFLUSH) 10 mL INTRAVENOUS DIRECTED PRN perflutren lipid microspheres 1.3 mL in NaCl (PF) 0.9% 10 mL injection (DEFINITY) INTRAVENOUS DIRECTED PRN sodium chloride 0.9 % (flush) 10 mL (BD POSIFLUSH) 10 mL INTRAVENOUS DIRECTED PRN REVIEW OF SYSTEMS: HEENT: Denies recent severe headaches, visual changes, difficulty swallowing. GASTROINTESTINAL: Denies melena, hematochezia, heartburn. GENITOURINARY: Denies hematuria. MUSCULOSKELETAL: Denies claudication or muscle myalgias. NEUROLOGIC: Denies unilateral paralysis, slurred speech. SKIN: Denies skin ulcers or lesions. HEMATOLOGICAL: Denies gingival bleeding, or prolonged epistaxis. ENDOCRINE:Denies heat or cold intolerance, excessive thirst or urination. All Other Remaining ROS negative. PHYSICAL EXAMINATION: BP 165/93 Pulse 73 Resp 14 Ht 5' 6.5 (1.69m) Wt 155 lb (70.3kg) SpO2 97% BMI 24.65 kg/(m2). General: Well appearing, in no acute distress, speaking (more content not included)... Normal [facility] ECHOon 04-04-2023 Echocardiography Echocardiography Report: Transthoracic Echo [facility] J1-5 Date of service: 04/04/2023 11:00:43 AM MANAGER Ordering physician: SMITA REEVES Indication: S/p TMVR Technologist: Cris Sow RVT Fellow: George Oseguera MD Interpreting physician: Lawrence Chambers MD PATIENT: Name: CELIA CHOPRA : 1935 Age: 88 years Gender: F History of valvular heart disease and arrhythmia. Previous cardiovascular interventions: Mitral valve replacement (2012) CABG (2012) TMVR (Ayla) (12/12/2021) Primary rhythm: atrial fib. Height: 167.60 cm BSA: 1.82 m Weight: 70.76 kg BMI: 25.2 kg/m Heart rate 68 bpm Blood pressure 146/73 mmHg Color Doppler was utilized to interrogate the cardiac valves assessed and spectral Doppler was utilized to determine the flow velocities and pressure gradients reported in this exam. MEASUREMENTS: Value Indexed Normal Max aortic dimension 3.6 cm Ao < 3.8 Left atrial volume 89 ml (biplane A-L) 49 ml/m Melonie <= 34 LV ID (diastole) 3.6 cm (2D) 1.98 cm/m LV ID (systole) 2.3 cm (2D) 1.27 cm/m IVS, leaflet tips 1.1 cm (2D) Posterior wall thickness 1.2 cm (2D) Left ventricular mass 133 g (2D) 73 g/m LV stroke volume 44 ml (2D 4-ch.) LVOT stroke volume 83 ml 46 ml/m LV end diastolic volume 72 ml (2D 4-ch.) 39.5 ml/m 29<=EDVi<62 LV end systolic volume 28 ml (2D 4-ch.) 15.2 ml/m Ejection Fraction 61 % (2D 4-ch.) EF > 54 FINDINGS: LEFT VENTRICLE The left ventricle is normal in size. There is mild concentric left ventricular hypertrophy. Left ventricular systolic function is normal. Left ventricular diastolic function was not evaluated due to AF and mitral valve surgery. Wall Motion: All scored segments are normal. RIGHT VENTRICLE The right ventricle is dilated. Right ventricular systolic function is mildly decreased. RV systolic tissue Doppler velocity is 9.0 cm/s. Tricuspid annular displacement is 1.7 cm. Estimated right ventricular systolic pressure is 56 mmHg consistent with moderate pulmonary hypertension (but may be underestimated due to severe TR). Estimated right atrial pressure is 8 mmHg based on IVC assessment. LEFT ATRIUM The left atrial cavity is severely dilated. RIGHT ATRIUM The right atrial cavity is severely dilated. Inferior Vena Cava: The inferior vena cava appears dilated measuring 2.3 cm. The vessel decreases greater than 50 percent with inspiration. MITRAL VALVE Post mitral valve replacement. Marina Nela 3 prosthetic valve size #26. There is trace mitral valve regurgitation. The peak mitral valve gradient is 15 mmHg. The mean mitral valve gradient is 5 mmHg. TRICUSPID VALVE There is severe (4+) tricuspid valve regurgitation caused by annular dilatation. There is mild thickening. The hepatic venous pattern showed reversed systolic flow. AORTIC VALVE There is mild (1+) aortic valve regurgitation. Tricuspid aortic valve. There is mild thickening. There is mild calcification. The peak gradient is 13 mmHg (peak velocity = 181.1 cm/s). The mean gradient is 8 mmHg. The LVOT mean velocity is 72.2 cm/s. The LVOT diameter is 2.0 cm. The aortic VTI is 48.3 cm. The mean velocity in the aortic valve is 126.2 cm/s. The dimensionless valve index is 0.55. AV area is 1.72 cm (0.95 cm /m ) by continuity, VTI. The LVOT stroke volume index is 46 ml/m . PULMONIC VALVE The pulmonic valve cusps are structurally normal. There is moderate (2+ - 3+) pulmonic valve regurgitation. AORTA The visualized aorta is normal in size. Measurements - Sinus: 3.6 cm. Sinotubular junction 2.9 cm. Mid ascending aorta 3.6 cm. PULMONARY ARTERIES The pulmonary arteries are unseen or not interrogated. INTERATRIAL SEPTUM There is no evidence of intracardiac shunting as detected by Doppler. INTERVENTRICULAR SEPTUM There is abnormal motion of the interventricular septum secondary to abnormal conduction and prior cardiac surgery. There is no flow through the interventricular septum as detected by Doppler. PERICARDIUM There is no pericardial effusion. There is an epicardial fat pad. CONCLUSIONS: - Exam indication: S/p TMVR - The left ventricle is normal in size. There is mild concentric left ventricular hypertrophy. Left ventricular systolic function is normal. EF = 61 5% (2D 4-ch.) - The right ventricle is dilated. Right ventricular systolic function is mildly decreased. - The left atrial cavity is severely dilated. - The right atrial cavity is severely dilated. - Post mitral valve replacement. Marina Nela 3 prosthetic mitral valve (size #26). There is trace mitral valve regurgitation. The peak gradient is 15 mmHg and the mean gradient is 5 mmHg. Prior Pk/Mn gradients of 14/4 mmHg. Today's gradients averaged due to Afib. Small stable modbile echodensity in LVOT. - There is severe (4+) tricuspid valve regurgitation caused by annular dilatation. - There is moderate (2+ - 3+) pu (more content not included)... Normal [facility] Urinalysis - DIPSTICKon - Appearance (U) clear [employer] Other Bilirubin Ql (U) small [employer] Other Color (U) dark yellow [facility] Other Glucose Ql (U) Negative [employer] Other Hemoglobin Ql (U) Negative [employer] Other Ketones Ql (U) Negative [employer] Other Leukocyte esterase Test strip Ql (U) trace [facility] Other Nitrite Ql (U) Negative [employer] Other pH (U) 5.0 [pH] [facility] Other Protein Ql (U) Negative [facility] [employer] Other Specific gravity (U) [Rel density] 1.015 [facility] [employer] Other Urobilinogen (U) [Mass/Vol] 0.2 mg/dL [facility] [employer] Other Urinalysis - DIPSTICK [facility] [employer] Other Prothrombin Time INRon 03-19 INR Coag (PPP) [Relative time] 1.9 {INR} [facility] [employer] Other Prothrombin Time INR [facility] [employer] Other Prothrombin Time INRon 02-11 INR Coag (PPP) [Relative time] 2.2 {INR} [facility] [employer] Other Prothrombin Time INR [facility] [employer] Other Prothrombin Time INRon 01-06 INR Coag (PPP) [Relative time] 2.3 {INR} [facility] [employer] Other Prothrombin Time INR [facility] [employer] Other Prothrombin Time INRon 12-23 INR Coag (PPP) [Relative time] 3.1 {INR} [facility] [employer] Other Prothrombin Time INR [facility] [employer] Other Prothrombin Time INRon 12-11 INR Coag (PPP) [Relative time] 3.5 {INR} [facility] [employer] Other Prothrombin Time INR [facility] [employer] Other Prothrombin Time INRon 11-27 INR Coag (PPP) [Relative time] 3.5 {INR} [facility] [employer] Other Prothrombin Time INR [facility] [employer] Other Prothrombin Time INRon 10-28 Prothrombin Time INR [facility] [employer] Other Prothrombin Time INRon 09-26 INR Coag (PPP) [Relative time] 2.9 {INR} [facility] [employer] Other Prothrombin Time INR [facility] [employer] Other Basophils Auto (Bld) [#/Vol] Ordered By: Haresh Lino on 09-17-2022 Basophils (Bld) [#/Vol] 0.1 10*3/uL 0.0-0.2 [facility] Basophils/100 WBC Auto (Bld) Ordered By: Haresh Lino on 09-17-2022 Basophils/100 WBC (Bld) 0.8 % . [facility] Cholesterol [Mass/volume] in Serum or PlasmaOrdered By: Haresh Lino on 09-17-2022 Cholesterol [Mass/Vol] 137 mg/dL 140-200 [facility] Comment on above: Chol less than 200 m g/dl low riskChol 201-239 mg/dl borderline riskChol 240 mg/dl and greater high risk Cholesterol in LDL Calc [Mas s/Vol]Ordered By: Haresh Lino on 09-17-2022 Cholesterol in LDL [Mass/Vol] 66 mg/dL 0-100 [facility] Comment on above: LDL ATP III CLASSIFI CATIONLDL less than 100 mg/dL OptimalLDL 100-129 mg/dL Near or above optimalLDL 130-159 mg/dL Borderline highLDL 160-189 mg/dL HighLDL greater than 189 mg/dL Very high Cholesterol in VLDL Calc [Ma ss/Vol]Ordered By: Haresh Lino on 09-17-2022 Cholesterol in VLDL [Mass/Vol] 8 mg/dL [facility] Creatinine and Glomerular fi ltration rate.predicted panel (S/P/Bld)Ordered By: Haresh Lino on 09-17-2022 Creatinine [Mass/Vol] 0.99 mg/dL 0.44-1.03 [facility] Eosinophils Auto (Bld) [#/Vo l]Ordered By: Haresh Lino on 09-17-2022 Eosinophils (Bld) [#/Vol] 0.1 10*3/uL 0.0-0.45 [facility] Eosinophils/100 WBC Auto (Bl d)Ordered By: Haresh Lino on 09-17-2022 Eosinophils/100 WBC (Bld) 1.2 % . [facility] Erythrocyte distribution wid th Auto (RBC) [Ratio]Ordered By: Haresh Lino on 09-17-2022 Erythrocyte distribution width (RBC) [Ratio] 13.5 % 11.9-15.3 [facility] Estimated glomerular filtrat ion rate (GFR) non- AmericanOrdered By: Haresh Lino on 09-17-2022 GFR/1.73 sq M.predicted among non-blacks MDRD (S/P/Bld) [Vol rate/Area] 53 mL/Min [facility] Hematocrit Auto (Bld) [Volum e fraction]Ordered By: Haresh Lino on 09-17-2022 Hematocrit (Bld) [Volume fraction] 39.0 % 34.0-46.4 [facility] Hemoglobin [Mass/volume] in BloodOrdered By: Haresh Lino on 09-17-2022 Hemoglobin (Bld) [Mass/Vol] 13.0 g/dL 11.8-15.4 [facility] Leukocytes [#/volume] correc jonas for nucleated erythrocytes in Blood by Automated counOrdered By: Haresh Lino on 09-17-2022 WBC corrected for nucl RBC Auto (Bld) [#/Vol] 9.0 10*3/uL 3.8-11.6 [facility] Lymphocytes Auto (Bld) [#/Vo l]Ordered By: Haresh Lino on 09-17-2022 Lymphocytes (Bld) [#/Vol] 1.2 10*3/uL 1.00-4.8 [facility] Lymphocytes/100 WBC Auto (Bl d)Ordered By: Haresh Lino on 09-17-2022 Lymphocytes/100 WBC (Bld) 13.1 % . [facility] MCH Auto (RBC) [Entitic mass ]Ordered By: Haresh Lino on 09-17-2022 MCH (RBC) [Entitic mass] 31.3 pg 24.7-34.3 [facility] MCHC Auto (RBC) [Mass/Vol]Or dered By: Haresh Lino on 09-17-2022 MCHC (RBC) [Mass/Vol] 33.2 g/dL 32.0-35.0 [facility] MCV Auto (RBC) [Entitic vol] Ordered By: Haresh Lino on 09-17-2022 MCV (RBC) [Entitic vol] 94.3 fL 80-100 [facility] Monocytes Auto (Bld) [#/Vol] Ordered By: Haresh Lino on 09-17-2022 Monocytes (Bld) [#/Vol] 0.9 10*3/uL 0.0-0.8 [facility] Monocytes/100 WBC Auto (Bld) Ordered By: Haresh Lino on 09-17-2022 Monocytes/100 WBC (Bld) 10.2 % . [facility] Neutrophils Auto (Bld) [#/Vo l]Ordered By: Haresh Lino on 09-17-2022 Neutrophils (Bld) [#/Vol] 6.8 10*3/uL 1.8-7.7 [facility] Neutrophils/100 WBC Auto (Bl d)Ordered By: Haresh Lino on 09-17-2022 Neutrophils/100 WBC (Bld) 74.7 % . [facility] No Panel InformationOrdered By: Haresh Lino on 09-17-2022 25-Hydroxy Vitamin D Total 40.6 ng/mL 30-100 [facility] Comment on above: VITAMIN D STATUS 25( [place])VITAMIN D RANGE (ng/mL) Deficient <20 Insufficient 20 to <30Sufficient 30 to 100Reference: Aleja MF,Alexia HOWARD, Namita VINES, et al. Evaluation,treatment, and prevention of vitamin D deficiency; an Endocrine Society clinical practice guideline. JCEM. 2010; 96(7):1911-30. Estimated GFR () > 60 mL/Min [facility] Comment on above: GFR estimated refere nce range: According to KDOQI guidelines, <60 ml/min/1.73m2 is sufficient to diagnose a patient with chronic kidney disease. Pharmacy Creatinine Clearance (Chem N/A [facility] Nucleated erythrocytes [Pres ence] in Blood by Automated countOrdered By: Haresh Lino on 09-17-2022 Nucleated RBC Auto Ql (Bld) 0.2 /100{WBC} 0-0.5 [facility] Platelet mean volume Auto (B ld) [Entitic vol]Ordered By: Haresh Lino on 09-17-2022 Platelet mean volume (Bld) [Entitic vol] 9.4 fL 6.3-10.7 [facility] Platelets Auto (Bld) [#/Vol] Ordered By: Haresh Lino on 09-17-2022 Platelets (Bld) [#/Vol] 148 10*3/uL 150-450 [facility] RBC Auto (Bld) [#/Vol]Ordere d By: Haresh Lino on 09-17-2022 RBC (Bld) [#/Vol] 4.14 10*6/uL 3.60-5.00 [facility] Serum or plasma alanine murcia otransferase measurement without P-5'-P (enzymatic activiOrdered By: Haresh Lino on 09-17-2022 ALT No additional P-5'-P [Catalytic activity/Vol] 16 U/L 10-60 [facility] Serum or plasma anion gap de terminationOrdered By: Haresh Lino on 09-17-2022 Anion gap [Moles/Vol] 15.7 mmol/L 6.0-15.0 [facility] Serum or plasma calcium jimmy urement (mass/volume)Ordered By: Haresh Lino on 09-17-2022 Calcium [Mass/Vol] 9.4 mg/dL 8.2-10.2 [facility] Serum or plasma chloride mich surement (moles/volume)Ordered By: Haresh Lino on 09-17-2022 Chloride [Moles/Vol] 99 mmol/L 95-114 [facility] Serum or plasma glucose jimmy urement (mass/volume)Ordered By: Haresh Lino on 09-17-2022 Glucose [Mass/Vol] 113 mg/dL 70-100 [facility] Comment on above: ADA recommended refe rence rangeRandom Glucose Reference Range is dependent on time and content of last meal. Glucose of more than 200 mg/dL in a nonstressed, ambulatory subject supports the diagnosis of Diabetes Mellitus. Serum or plasma high density lipoprotein (HDL) cholesterol measurementOrdered By: Haresh Lino on 09-17-2022 Cholesterol in HDL [Mass/Vol] 63 mg/dL 35-85 [facility] Comment on above: HDL CHOL ATP-III CLA SSIFICATION Cardiovascular RiskHDL > or equal to 60 mg/dL LOWHDL < 40 mg/dL HIGH Serum or plasma potassium me asurement (moles/volume)Ordered By: Haresh Lino on 09-17-2022 Potassium [Moles/Vol] 4.0 mmol/L 3.5-5.1 [facility] Serum or plasma sodium measu rement (moles/volume)Ordered By: Haresh Lino on 09-17-2022 Sodium [Moles/Vol] 137 mmol/L 136-146 [facility] Serum or plasma total carbon dioxide measurement (moles/volume)Ordered By: Haresh Lino on 09-17-2022 CO2 [Moles/Vol] 26.3 mmol/L 22.0-30.0 [facility] Serum or plasma total choles terol/high density lipoprotein (HDL) cholesterol mass ratOrdered By: Haresh Lino on 09-17-2022 Cholesterol.total/Chol esterol in HDL [Mass ratio] 2.2 {ratio} <5.0 [facility] Serum or plasma urea nitroge n measurement (mass/volume)Ordered By: Haresh Lino on 09-17-2022 Urea nitrogen [Mass/Vol] 19 mg/dL 9-23 [facility] Triglyceride [Mass/volume] i n Serum or PlasmaOrdered By: Haresh Lino on 09-17-2022 Triglyceride [Mass/Vol] 41 mg/dL 35-149 [facility] Comment on above: TRIG ATP III CLASSIF ICATIONTRIG less than 150 mg/dL NormalTRIG 150-199 mg/dL Borderline highTRIG 200-500 mg/dL High TRIG greater than 500 mg/dL Very highStandard traceable to the Center for Disease Conrtrol and Prevention (CDC) test method. WBC Auto (Bld) [#/Vol]Ordere d By: Haresh Lino on 09-17-2022 WBC (Bld) [#/Vol] 9.0 10*3/uL 3.8-11.6 [facility] CT CHEST WO CONon 05-28-2022 CT CHEST WO CON EXAMINATION: CT CHES T WO CON HISTORY: Solitary nodule of lung COMPARISON: CT chest high-resolution 11/13/2020 TECHNIQUE: Axial, Coronal, and Sagittal images were created without the administration of IV contrast material. Dose reduction techniques were achieved by using automated exposure control and/or adjustment of mA and/or kV according to patient size and/or use of iterative reconstruction technique. FINDINGS: LUNGS: Trace amount of atelectasis, or possibly infiltrates within medial right middle lobe adjacent mediastinum. Mild emphysematous changes. No nodules. PLEURA: No mass, effusion, or pneumothorax. VASCULATURE: No abnormality. ARLINE: No mass or adenopathy. MEDIASTINUM: No mass or adenopathy. CARDIAC: Mild cardiomegaly. No pericardial effusion. AORTA: No aneurysm or dissection. CHEST WALL: No mass or axillary adenopathy. BONES: No bone lesion or fracture. LIMITED ABDOMEN: No suspicious findings. Limited images of the upper abdomen. OTHER: Negative. IMPRESSION: 1. Clearing of previously seen small right pleural effusion. 2. Mild emphysematous changes. 3. Mild cardiomegaly. 4. Lung-RADS Category 1 Negative. No nodules and definitely benign nodules. Continue annual screening with LDCT in 12 months if patient is at increased risk for lung cancer. Electronically authenticated by: ARIELLA FLETCHER Date: 2022-05-28 15:10 Normal [facility] Outside Cardiovascularon Outside Cardiovascular [id number]#1. 00CD:[address] [facility] Outside Labson 04-10-2022 Outside Labs [id number]#1. 00CD:[address] [facility] Heart and Vascular Office/Cl inic Noteon 03-22-2022 Heart and Vascular Office/Clinic Note History of Present Illness Ms. Chopra is a very pleasant 85-year-old female with a history of atrial fibrillation status post ablation and DC cardioversions in the past, both of which have failed, on chronic Coumadin therapy, coronary disease, former smoker, hyperlipidemia, coronary bypass graft x1 and mitral valve repair with a single left radial artery graft to the diagonal branch of the LAD, mitral valve repair with a 27 mm pericardial bioprosthesis, radiofrequency Maze procedure, and excision of left atrial appendage on 05/13/2019, previous patient of Dr. Garcia's last seen in October 2019. Patient underwent a MUGA scan in 2016 at an outside hospital which showed dilated right ventricle with normal RV,, LVEF of 45%. In addition she underwent a 2D echo with Doppler in October 2007 which showed normal LV size and function with an EF of 60%, moderate TR but unable to quantitate RVSP, is an 18. Patient recently referred to our office for palpitations and dyspnea as well as chest pain which appears to be at the terminal end of exertion. Patient states that she has had progressively worsening dyspnea on exertion, midsternal chest pain radiating to her left arm, with associated fatigue, decreased exercise capacity. Apparently she had pulmonary function test done but we do not have those results. She is a previous smoker. As part of her cardiac evaluation she was scheduled for an echocardiogram and a stress test however the echocardiogram was performed on 12/27/2020 with the following results: (12/27/2020 14:46 EDT Echo Transthoracic Complete) SUMMARY/CONCLUSION: Normal left ventricle. Severely dilated right ventricle with severe right ventricular dysfunction. Almost severe essentially systemic level pulmonary artery hypertension with dilated pulmonary artery, dilated right ventricle and massive dilated right atrium. There is at least moderate mitral valve prosthetic stenosis and no regurgitation. There is mild calcific aortic stenosis. Diastolic filling pattern cannot be estimated due to atrial fibrillation. The stress echocardiogram subsequent was cancelled due to severe systemic level pulmonary artery hypertension. It appears with a peak/mean gradient of 4050 mmHg with an estimated mitral valve area of 1.08 cm?, and severe pulmonary pretension with RVSP of 99 mmHg. Because of her severe pulmonary pretension and severe mitral stenosis she did not undergo her stress test. Patient is now here in follow-up. Patient states since initiating diuretic therapy and metoprolol, she do much better. Her symptoms have markedly improved but she still has some shortness of breath. Her edema has improved but not quite resolved all the way. In our office today her blood pressure is 121/57, and pulse is 65 and irregular. EKG dated 11/20/2020 shows atrial fibrillation with controlled ventricular response. Lipids dated 09/25/2020 show an HDL of 52 and LDL of 63. [1] Review of Systems Constitutional: no fever, no chills, no weakness, no fatigue Respiratory: no shortness of breath, no cough, no orthopnea, no wheezing Cardiovascular: no chest pain, no palpitations, no edema Neuro: no dizziness no light headed no syncope Additional ROS info: Except as noted in the above Review of Systems and in the History of Present Illness all other systems have been reviewed and are negative or noncontributory. Physical Exam General: alert, no acute distress Neck: Supple, noJVD nocarotid bruit Cardiovascular: regular rate and rhythm, no murmur normal peripheral perfusion Respiratory: Lungs CTA, respirations non labored Extremities: no edema Neurological: oriented x 4, LOC appropriate for age, sensation equal & normal bilaterally, speech normal Skin: Warm, dry, intact- no rash or concerning lesions Follow-up No qualifying data available Problem List/Past Medical History Ongoing Atrial fibrillation CAD (coronary artery disease) Former smoker HLD (hyperlipidemia) Historical No qualifying data Procedure/Surgical History CABG x 1 - Coronary artery bypass graft x 1, Heart valve repair. Medications Ambien 10 mg Tab, 10 mg= 1 tab(s), Oral, Once a day (at bedtime), PRN Anoro Ellipta, 1 inh, Inhalation, Daily aspirin 81 mg Oral EC Tab bumetanide 2 mg Tab, 2 mg= 1 tab(s), Oral, BID Klor Con 10 mEq Cap-ER, 10 mEq= 1 tab(s), Oral, Daily Lipitor 20 mg Tab, 20 mg= 1 tab(s), Oral, Daily Metoprolol tartrate 50 mg Tab, 75 mg= 1.5 tab(s), Oral, BID Pepcid 20 mg Tab, 20 mg= 1 tab(s), Oral, BID Trelegy Ellipta inhalation powder, 1 puff(s), Inhalation, Daily, 11 refills warfarin 2 mg Tab, 2 mg= 1 tab(s), Oral, Daily Allergies Percodan (Hallucinations) Social History Alcohol Current, 10/20/2020 Tobacco Former smoker, quit more than 30 days ago Tobacco Use:. Started age 18.0 Years. Stopped age 65 Years., 11/29/2020 Former smoker, quit more than 30 days ago Tobacco Use:., 10/20/[address] [facility] Comment on above: Result Comment: Elec tronically Signed By: Juancho VILLEGAS, [place] Other Comment: Proba ble no-show. BRIEF OP NOTon 09-19-2021 BRIEF OP NOT HNO ID: [id number] Author: Alexis Falk V, MD Service: Cardiovascular Disease Author Type: Physician Type: Brief Op Note Filed: 09/19/2021 2:09 PM Note Text: MARLYN 2 D Doppler study performed: Consent signed and time out performed. Indication: prosthetic valve dysfunction [ mitral ] Moderate sedation given: see clinical documentation manager Probe inserted without difficulty. No complications noted and post MARLYN orders given. Findings: Significant stenosis of MV prosthetic valve due to leaflet thickening No significant MR Severe TR Severe TV dilatation No significant No vegetations noted Will discuss with Dr Reeves Referring kiln setter Alexis Falk MD [facility] HISTORY PHYSICALon 2 HISTORY PHYSICAL HNO ID: [id number] Author: Katherine Sifuentes PA-C Service: ? Author Type: Physician Hematology Nurse Type: HANDP Filed: 09/19/2021 12:41 PM Note Text: PROCEDURAL SEDATION HISTORY AND PHYSICAL EXAM SERVICE DATE: 09/19/2021 SERVICE TIME: 12:40 PM Subjective HPI: This is a 86 year old female who presents with history of mitral valve replacement in 2012. Recently having IGLESIAS and found to have severe tricuspid regurgitation PAST ANESTHESIA HISTORY: No history of adverse event No past medical history on file. No past surgical history on file. Prior to Admission medications as of 09/19/21 1226 Medication Sig Last Dose Taking TRELEGY ELLIPTA 100-62.5-25 mcg 09/18/2021 at 0800 Yes metoprolol tartrate, short acting, (LOPRESSOR) 50 mg tablet 09/19/2021 at 0700 Yes potassium chloride ER (K-DUR, KLOR-CON) 10 mEq tablet 09/19/2021 at 1000 Yes warfarin (COUMADIN) 2 mg tablet 09/18/2021 at 1900 Yes zolpidem (AMBIEN) 10 mg Take 10 mg by mouth daily at bedtime. 09/19/2021 at 0000 Yes famotidine (PEPCID AC) 10 mg tablet Take 10 mg by mouth twice daily. 09/19/2021 at 0700 Yes vit A/vit C/vit E/zinc/copper (PRESERVISION AREDS ORAL) Take by mouth. 09/18/2021 at 100 Yes multivit-min/iron/foli c/lutein (CENTRUM SILVER WOMEN ORAL) Take by mouth. 09/18/2021 at 0800 Yes sodium chloride 0.9 %, flush, (BD POSIFLUSH) syringe Inject 2-10 mL intravenously as directed. For Echo procedure atorvastatin (LIPITOR) 20 mg tablet Take 20 mg by mouth daily at bedtime. 09/18/2021 at 1900 bumetanide (BUMEX) 2 mg tablet Take 2 mg by mouth once daily. 09/18/2021 at 1600 ALLERGIES Allergen Reactions - Iodine Other: See Comments Per pt. was used at the dentist and she developed redness of face. This was quite awhile ago. - Percodan [Oxycodone* Other: See Comments Per pt caused hallucinations. Objective PHYSICAL EXAM: The remainder of the physical exam is noncontributory. AIRWAY: Airway Visualization of Uvula: Yes Mouth opening greater than 2 fingerbreadths: Yes Neck Full Range of Motion: Yes LUNGS: Lungs clear to auscultation CARDIAC: Irregularly irregular, +2/6 sytolic murmur LSB. (has A-fib) Assessment/Plan ASA Class: ASA Class:: Patient with severe systemic disease Active Problems: Rheumatic mitral stenosis POA: Unknown Assessment AND Plan: Rheumatic mitral stenosis Resolved Problems: * No resolved hospital problems. * Provisional Diagnosis/Treatment Plan: Rheumatic mitral stenosis/ECHOCARDIOGRA M TRANSESOPHOGEAL, REAL TIME W/IMAGE DOCUMENT (2D) SIGNATURE: Katherine Sifuentes PA-C PATIENT NAME: Celia Chopra DATE: September 19, 2021 TIME: 12:40 PM [facility] NURSING PROGon 09-19-2021 NURSING PROG HNO ID: [id number] Author: Paloma Turner RN Service: ? Author Type: Registered Nurse Type: Nursing Progress Note Filed: 09/19/2021 4:24 PM Note Text: 1500 Pt NPO for an hour- now swallowing well. Denies pain. Family updated . 1530 No issues swallowing. Instructions given. 1540 Home with family [facility] Coding Summary.on 05-23-2021 Coding Summary. [id number] Gh 0bWw+PGhlYWQ+JW4BSLTkT 08xuNQkwD5GX6eLLS6CBKC OZIPJGM6SFE3icUF6VLhjV 2VybiAv DjcmvJRfUW80VRq2IOZ9gC idXIdsxU9jgBYsH0q4FfEn VJ50hL59UFtiBRWtGxX0Nm ZpbjsgbWFy V1naElZhcVZsBkw+PHRhYm xlIHdpZHRoPScxMDAlJyBz rGvjWS2oMa3sJHTnLQLubF xhcHNlOiBj f6rzODFrAIewFU7qiYlbO2 EudQI1NQIqe6z4Zn54aBQ+ TQJnXOH2gVuaNSmpk771Lx Bew7jjFAJ0 dLKdTEahTWK7J36yl2J2EJ UnPOJyNWU4xVR2hB4exCpx cfdsB7RvuGDtYgC7CRK7dN IvnK9hiPcn eozsqT8sDlc+J34LDI8VKI NPMS3DYja8Q9BvVnrpkQN+ IQ44RRPgNH55mGLkaVMdw2 kzbPr7HeGg XXOoPQF8kApzPNqtn1LcFY XwG30rmNDtf7A8UUCzmRqs qLWvLfHmwAB3aU1rCRofls apo8uqjujz Nksyk5ierp78gI73M53gTY rhCAVcCAK6DBQiFUSzzWah ze0utP5jRs9+QGxng4dzh0 rmdFh6NhIu QSHgnjQfpPlcJEL4z0XsTl 67F2XkzZmmf9NpSaz1ss43 xYNjg4K4qDI8SImgWAHhjT 8oJYowSvW7 MILdYtDybC41uLWwFSvtOz 9mfZwwoMzeTO4lPPQujtqu FDJdkT3oIVYfwKTamRwpRY 4wNTBpbjtm l604NqYfWSV3VZXoyQHnC5 RgdI5mAcCoOOTeXWHxR8Sc hIReCHbbW527FHejVdN7HV LttxTwO9Xs GTSwcIjzDgA6e4X6Sv8Qu1 VfqdfzNRW0NQvoJQK0CfO0 GdFmQoW6R7NzIcj7GWTuwJ avKX6qI7Hz HKXwqtzkwngahUR8BUZiFU KiqF21uAWgRQlnYb3nd2I4 b298ROXwRSXenR96Ca5zzG ogMTBwdCBU jR6amcvwx9rcwdroElMsMT FdWYc7SXy0TIQacFnqNzDu UTW5FaW4BEK7fZMxtS8fmH flzcvvgP1q Oyc+F01ooU2yNKY5IZL7bm tuQPJoqwTnIU14EP65X9Zn PjwvdGFibGU+PGRpdiBzdH isZF5wPlDu p3vco0MlPHivD8EuKFTxWZ zfHmv5HTBuXES4tHN2jX3v PWTbKJljs3R0pJD9D1Jddo Bvkb1fl5bc XIEaZFuiF99egQSxb5K3EJ CzeRK8QLTymKetEaFbnZ98 Oyc+SALmfCggx7QmMvokm0 bms7qohUg2 KiYyKETwcgXqrFzjFJD7e4 VcFk86O99aNSyxNEVrEVZs PYGhYMXwvCsmic4kpY6cPy 8+PGNvbCB3 kQN5fC9cLKTbVuZ3MKyzF3 70WuHbsSYrLxqqh6vct3zr cYn1SoVzFJImocJuxIoeKA C9w1HaVm22 V54rBDvsOSLlJHAfZOGjNB IqdNkvmr2dkH7vGw4+PC9j g8ymvj60lS04sPN+PHRkIH U0fYdyFWyb KNPozN3zEIopQbF5RIAiSb KlkN97nOOzREzxGo0ayCyt dAbpYB1mVLUivseir159Lv Ofy7hiTEHt iXUpKKvcHBY2T36df4W4WJ BuKNFhSBD0lBV1aQ0rxFqn bjogbGVmdDsgdmVydGljYW ziGKfkY522 IHRvcDsnPlBhdGllbnQgTm GdZFf7X3QqXhx4VFNifRec BF7zgZJmUFlrRx4axNprdQ qySN4kVISh pctya645ThJrl6iuQREduW IpWExtXFL8J36zb3B3YZIj YCAxFEG9vHG7kJ5ziVkaja ogbGVmdDsg ksOwdPbyDTxrMLepO552PL RvcDsnPkJpcnRoIERhdGU6 QV64YB54cPKoz2K8oQL2V3 BhZGRpbmct gqshwDI5XJLfDMQapZ56Bp 4deQqaTn1aEUWjWOC1VMDv tENiQ5CylG4uPuGeAVMvHL WhH2ZffNJb PCudK921PWbxPqC9KRMevh VfM4HiKDOvyRlqHsG2l2A8 Xh6XN9X2MJ65AZ37mSXnc9 H1aPF2W6Oc IELpgsbvjhqdiOS5IBFePX TjbY21Nw7beAgxEr6cVGGj SYM8TNImpXGyO1IzxZ2mWc AjMDAwMDAw R6OamVKwJEceM333LCeiXr J5DLEykaIrA3JfKUBesVrr JiK6m1V4Ib2YEDm7DX74ZF 49yXOkc0E2 pLC0I6ZfIZDjzyyuixcplZ Z1MREmFCEdnT69Hh3sgObm Ja8zBHZcPZO4ECVukBJfG3 RxlC4aIpBg WLKjIDIwN8XnxSXvRKlrR4 60KRfmVlI9YZRyggJaP7Gm TYOljAziShR5o4U3Ck7PWT EbKJ36CUB4 xNZ3JL15JM87Z1PeQugeeK FibGU+PHRhYmxlIHdpZHRo CBxiXQDuBlVulEthWJ7eFm 9yZGVyLWNv oDwugQBnFoVyf1pwNCMqSJ taKE7xyQvlK3JdeHL2VEUi p8s6Bx83N86gK0LtlCQ+PG IioLB1mFE0 sQ7eJvJmNkH4OVsjT946Yq UrxTKaSbnjm9jgt4mwbKx3 ChC0PFFvdlRzrUgpDBT6b3 JpVl81P07m IHdpZHRoPSIxNSUiIHZhbG guop0baL1uGq2+PGNvbCB3 gLV9cN9hRpToWnD5DTogN0 49InRvcCIv Dtkvp2qkg4voyKo5GuGbTI XwktVzxXqtLKB2c6PcEs65 K4KbcWdev8RlAll7bh50mO Guy6R6uXE2 K2LiKKQvejeddJLjsUjhPR 0hAHKtymhhLVBysC6hNPQo M2f3XaVbLbY2VVlpB4Ekam D2GDQqyOEt DAgcPKT0M04cp9C6VBKwQN YpCYG1aQO9aJ6ayPfaybyd bGVmdDsgdmVydGljYWwtYW faA625JRBf mCkzBBIokU5fIDDesHVbhJ rsGG3hGOWxusmtBx6GJJlY PIneORXUNW6wIVdyjCO+PH FnOQJ8wXjr KVjmRWPjzG9lGOBrK4v6Ww EmDzR9GKtnB8WxBATuihcc Dt87jX3tUgGlVbF8NEocG4 VuftX3QFNx tKAvZAcoREQ1M02yh2F0WX NdEMRtRQY6dOW9hH2saKsi bjogbGVmdDsgdmVydGljYW fsDGkcD735 HZTylZodWpL8DtZkNzW7Fx G7K6UnPkj7QWRjrQgrOU2o uFMdXFxeBl1cxRvalJuhPP 4wNTBpbjtw DHJonE8yHCGzfLQahIsdJV 4hVMQbpanwi864EfJlXYS5 JNJsaFFbR7DsoI0rKcXnBO JcPSScY1Ph sHRsIIblH053AUtyJhD7VL CreeIwJ0HzFBDdsKvzZbN0 k9H8Fa10NUKRDIWpvfunxX Q+PHRkIHN0 dPveHEvaGMDbzM2oLFNhT0 e6JdSuDnN6RQxjE9GaVBIl fjitQv72zW5dIoRkMaW1ZZ myB7RqepT4 CTZnrQDaZCwmKQY1P07ws5 J7GQHbXQCgLGL0tAS8tR8r bGlnbjogbGVmdDsgdmVydG ljYWwtYWxp E472DVYxlVybUoZqvQAxDB wvdGQ+FXJhKGJ3aCejXTjq AXPmjC7eYWRdT5b4FyKlXl N1ZHroZ0Ue AMTmidfxNu00sX9cHhRjBy L4YKwzK3WhnvK1LUCvfBLl MPtzUKX2B99hi8R8QXZjRY DmEZF2gXQ8 cK2yyUroqollyHRugTrlnn UfjGgxDLboTYglU543VLQe tUxuZd07zIHqyZbihyX0W1 RkPjwvdHI+ CK83LPFjTN92kEAvxHDhp0 jchOh6QeBwEUKxGME0zFjk QMyqc6GxEGHwY84cuKMzj0 Q2ZVBgvFtv qALjNqOguFU0oW0aWYplpj yay7pviwobYazwx5jirr61 aN20F01zHNarFAVjGYYhEL UiIHZhbGln rx9peV0dTm9+GGMcqAZ8gA H2iN0yKgDfQvA7NJykA578 HlQgqUInVjgsy5izf2iqnX v4IoRtSTYo xyOhjAhgEDV5m6WlJg11U9 9sIHdpZHRoPSIyMCUiIHZh wQcakn9zkC1tHi6+PC9jb2 wpgz40vS43 dHI+GGWfWGR8uEkcFTukUO VbnE3dQAzsQzC9RIUuVgMd wY36iPDjWWepRe6umQstnE daMY8iKTEe ffsod735DhNrt2awGHAxeX XdBAutMKD3B06wb0G5INUc ZODrEAI4eYA4bO7nmBfebj ogbGVmdDsg kaZzjJkaRKzoQDpcX069LM PajMimSnUabAMzY0njncSG KO6zLovaoZM+QEObRUD4eT xlPSdwYWRk vY0dWXEsT0n0LwDsFjT1XJ gnR9RuzpD6FATruPNvTJCz fFSJlC7frqfrx1esfnyaIv AwMDAwMDt0 TXf7NNMxhBaaXgBqGWP8Sa A6ILH5dKUynP5uhXdogeoe uJ6iLaq+RklOOjwvdGQ+PH FcLBX4oNnc RUpdHONwfZ0tZOTtZ8v3Sm IvHoO6WKbaO1LecqB2EBQi vOQiCHDpxMOVhZ4tnqwpo5 xvcjogIzAw OOXnJVm1CDe5FBNjuLnrQp KqHQN6FsG4FQO9yHWnqE5y lGkrewydnW2sNxc+TVJOOj wvdGQ+PHRk IPP2oEavJFmmOUBfsU8mLH TeG4l7HkBxVnJ6BXpsV4Ir aiM3TLYpcFApJOSvvYNVvJ 7mvfywc2mz cjhmBtNzOMSjTIl6ROu2FG PyrJuxIbAlSTO2DoN8DBC9 mLAfnQ1qzGlfjdzmoX5xZx c+JUN7LJC5 MF70IG25O8WwDzdqhIUueR U+PHRhYmxlIHdpZHRoPScx TRYsWkIbyRomLA7uAz2mAY VyLWNvbGxh cHNl (more content not included)... Normal [facility] Vital Signs Date Time Vital Sign Value Performing Clinician Facility 03-08-2024 14:49-0400 Body height 167.64 cm DO Haresh Ball Work Phone: [facility] 03-08-2024 14:49-0400 Body mass index (BMI) [Ratio] 24 kg/m2 DO Haresh Ball Work Phone: [facility] 03-08-2024 14:49-0400 Body weight 67.58 kg DO Haresh Ball Work Phone: [facility] 03-08-2024 14:37-0400 Body temperature 98.7 [degF] DO Haresh Ball Work Phone: [facility] 03-08-2024 14:37-0400 Diastolic blood pressure 60 mm[Hg] DO Haresh Ball Work Phone: [facility] 03-08-2024 14:37-0400 Heart rate 73 /min DO Haresh Ball Work Phone: [facility] 03-08-2024 14:37-0400 Respiratory rate 20 /min DO Haresh Ball Work Phone: [facility] 03-08-2024 14:37-0400 Systolic blood pressure 149 mm[Hg] DO Haresh Ball Work Phone: [facility] 03-03-2024 11:13-0400 Body height 167.64 cm DO Haresh Ball Work Phone: [facility] 03-03-2024 11:13-0400 Body mass index (BMI) [Ratio] 25 kg/m2 DO Haresh Ball Work Phone: [facility] 03-03-2024 11:13-0400 Body weight 70.42 kg DO Haresh Ball Work Phone: [facility] 03-03-2024 11:13-0400 Diastolic blood pressure 79 mm[Hg] DO Haresh Ball Work Phone: [facility] 03-03-2024 11:13-0400 Heart rate 76 /min DO Haresh Ball Work Phone: [facility] 03-03-2024 11:13-0400 Respiratory rate 12 /min DO Haresh Ball Work Phone: [facility] 03-03-2024 11:13-0400 Systolic blood pressure 147 mm[Hg] DO Haresh Ball Work Phone: [facility] 03-01-2024 14:47-0400 Body height 167.64 cm DO Haresh Ball Work Phone: [facility] 03-01-2024 14:47-0400 Body mass index (BMI) [Ratio] 24.7 kg/m2 DO Haresh Ball Work Phone: [facility] 03-01-2024 14:47-0400 Body weight 69.39 kg DO Haresh Ball Work Phone: [facility] 02-24-2024 14:47-0400 Body height 167.64 cm DO Haresh Ball Work Phone: [facility] 02-24-2024 14:47-0400 Body mass index (BMI) [Ratio] 24 kg/m2 DO Haresh Ball Work Phone: [facility] 02-24-2024 14:47-0400 Body weight 67.58 kg DO Haresh Ball Work Phone: [facility] 02-24-2024 14:38-0400 Body temperature 97 [degF] DO Haresh Ball Work Phone: [facility] 02-24-2024 14:38-0400 Diastolic blood pressure 79 mm[Hg] DO Haresh Ball Work Phone: [facility] 02-24-2024 14:38-0400 Heart rate 79 /min DO Haresh Ball Work Phone: [facility] 02-24-2024 14:38-0400 Respiratory rate 20 /min DO Haresh Ball Work Phone: [facility] 02-24-2024 14:38-0400 Systolic blood pressure 149 mm[Hg] DO Haresh Ball Work Phone: [facility] 02-10-2024 14:22-0400 Body height 167.64 cm DO Haresh Ball Work Phone: [facility] 02-10-2024 14:22-0400 Body mass index (BMI) [Ratio] 24 kg/m2 DO Haresh Ball Work Phone: [facility] 02-10-2024 [id number]:220400 Body weight 67.58 kg DO Haresh Ball Work Phone: [facility] 02-10-2024 14:11-0400 Body temperature 98.1 [degF] DO Haresh Ball Work Phone: [facility] 02-10-2024 14:11-0400 Diastolic blood pressure 79 mm[Hg] DO Haresh Ball Work Phone: [facility] 02-10-2024 14:11-0400 Heart rate 82 /min DO Haresh Ball Work Phone: [facility] 02-10-2024 14:11-0400 Respiratory rate 20 /min DO Haresh Ball Work Phone: [facility] 02-10-2024 14:11-0400 Systolic blood pressure 155 mm[Hg] DO Haresh Ball Work Phone: [facility] 01-19-2024 14:20-0400 Body height 167.64 cm DO Haresh Ball Work Phone: [facility] 01-19-2024 14:20-0400 Body mass index (BMI) [Ratio] 24 kg/m2 DO Haresh Ball Work Phone: [facility] 01-19-2024 [id number] Body weight 67.58 kg DO Haresh Ball Work Phone: [facility] 01-19-2024 14:030400 Body temperature 96.6 [degF] DO Haresh Ball Work Phone: [facility] 01-19-2024 14:03-0400 Diastolic blood pressure 83 mm[Hg] DO Haresh Ball Work Phone: [facility] 01-19-2024 14:03-0400 Heart rate 92 /min DO Haresh Ball Work Phone: [facility] 01-19-2024 14:03-0400 Respiratory rate 20 /min DO Haresh Ball Work Phone: [facility] 01-19-2024 14:03-0400 Systolic blood pressure 144 mm[Hg] DO Haresh Ball Work Phone: [facility] 12-03-2023 15:23-0400 Body height 167.64 cm DO Haresh Ball Work Phone: [facility] 12-03-2023 15:23-0400 Body mass index (BMI) [Ratio] 24 kg/m2 DO Haresh Ball Work Phone: [facility] 12-03-2023 15:23-0400 Body weight 67.58 kg DO Haresh Ball Work Phone: [facility] 12-03-2023 14:59-0400 Body temperature 97 [degF] DO Haresh Ball Work Phone: [facility] 12-03-2023 14:59-0400 Diastolic blood pressure 75 mm[Hg] DO Haresh Ball Work Phone: [facility] 12-03-2023 14:59-0400 Heart rate 77 /min DO Haresh Ball Work Phone: [facility] 12-03-2023 14:59-0400 Respiratory rate 20 /min DO Haresh Ball Work Phone: [facility] 12-03-2023 14:59-0400 Systolic blood pressure 148 mm[Hg] DO Haresh Ball Work Phone: [facility] 12-02-2023 11:51-0400 Body height 167.64 cm DO Haresh Ball Work Phone: [facility] 12-02-2023 11:51-0400 Body mass index (BMI) [Ratio] 25.2 kg/m2 DO Haresh Ball Work Phone: [facility] 12-02-2023 11:51-0400 Body weight 70.76 kg DO Haresh Ball Work Phone: [facility] 12-02-2023 11:51-0400 Diastolic blood pressure 90 mm[Hg] DO Haresh Ball Work Phone: [facility] 12-02-2023 11:51-0400 Heart rate 78 /min DO Haresh Ball Work Phone: [facility] 12-02-2023 11:51-0400 Respiratory rate 12 /min DO Haresh Ball Work Phone: [facility] 12-02-2023 11:51-0400 Systolic blood pressure 162 mm[Hg] DO Haresh Ball Work Phone: [facility] 11-26-2023 13:53-0400 Body height 167.64 cm DO Haresh Ball Work Phone: [facility] 11-26-2023 13:53-0400 Body mass index (BMI) [Ratio] 24 kg/m2 DO Haresh Ball Work Phone: [facility] 11-26-2023 13:53-0400 Body weight 67.58 kg DO Haresh Ball Work Phone: [facility] 11-26-2023 13:40-0400 Body temperature 97.3 [degF] DO Haresh Ball Work Phone: [facility] 11-26-2023 13:40-0400 Diastolic blood pressure 75 mm[Hg] DO Haresh Ball Work Phone: [facility] 11-26-2023 13:40-0400 Heart rate 82 /min DO Haresh Ball Work Phone: [facility] 11-26-2023 13:40-0400 Respiratory rate 18 /min DO Haresh Ball Work Phone: [facility] 11-26-2023 13:40-0400 Systolic blood pressure 155 mm[Hg] DO Haresh Ball Work Phone: [facility] 11-18-2023 12:40-0500 Diastolic blood pressure 62 mm[Hg] DO Haresh Ball Work Phone: [facility] 11-18-2023 12:40-0500 Heart rate 68 /min DO Haresh Ball Work Phone: [facility] 11-18-2023 12:40-0500 Respiratory rate 16 /min DO Haresh Ball Work Phone: [facility] 11-18-2023 12:40-0500 SaO2% (BldA) [Mass fraction] 100 % DO Haresh Ball Work Phone: [facility] 11-18-2023 12:40-0500 Systolic blood pressure 121 mm[Hg] DO Haresh Ball Work Phone: [facility] 11-18-2023 10:17-0500 Body height 167.64 cm DO Haresh Ball Work Phone: [facility] 11-18-2023 10:17-0500 Body weight 69.39 kg DO Haresh Ball Work Phone: [facility] 10-27-2023 14:42-0500 Body height 167.64 cm DO Haresh Ball Work Phone: [facility] 10-27-2023 14:42-0500 Body mass index (BMI) [Ratio] 24 kg/m2 DO Haresh Ball Work Phone: [facility] 10-27-2023 14:42-0500 Body weight 67.58 kg DO Haresh Ball Work Phone: [facility] 10-27-2023 14:23-0500 Body temperature 97.2 [degF] DO Haresh Ball Work Phone: [facility] 10-27-2023 14:23-0500 Diastolic blood pressure 76 mm[Hg] DO Haresh Ball Work Phone: [facility] 10-27-2023 14:23-0500 Heart rate 73 /min DO Haresh Ball Work Phone: [facility] 10-27-2023 14:23-0500 Respiratory rate 20 /min DO Haresh Ball Work Phone: [facility] 10-27-2023 14:23-0500 Systolic blood pressure 133 mm[Hg] DO Haresh Ball Work Phone: [facility] 10-15-2023 13:45-0500 Body height 167.64 cm Haresh Ball Other [facility] 10-15-2023 13:45-0500 Body mass index (BMI) [Ratio] 24.69 kg/m2 Haresh Ball Other [facility] [employer] Other 10-15-2023 13:45-0500 Body weight 69.4 kg Haresh Ball Other [facility] [employer] Other 10-15-2023 13:45-0500 Body weight 69.39 kg DO Haresh Ball Work Phone: [facility] 10-15-2023 13:45-0500 Diastolic blood pressure 88 mm[Hg] Haresh Ball Other [facility] 10-15-2023 13:45-0500 Respiratory rate 12 /min Haresh Ball Other [facility] [employer] Other 10-15-2023 13:45-0500 Systolic blood pressure 138 mm[Hg] Haresh Ball Other [facility] 10-14-2023 19:30-0500 Diastolic blood pressure 81 mm[Hg] DO Haresh Ball Work Phone: [facility] 10-14-2023 19:30-0500 Heart rate 75 /min DO Haresh Ball Work Phone: [facility] 10-14-2023 19:30-0500 Respiratory rate 18 /min DO Haresh Ball Work Phone: [facility] 10-14-2023 19:30-0500 SaO2% (BldA) [Mass fraction] 99 % DO Haresh Ball Work Phone: [facility] 10-14-2023 19:30-0500 Systolic blood pressure 188 mm[Hg] DO Haresh Ball Work Phone: [facility] 10-14-2023 17:51-0500 Body temperature 97.5 [degF] DO Haresh Ball Work Phone: [facility] 10-14-2023 13:50-0500 Body height 167.64 cm DO Haresh Ball Work Phone: [facility] 10-14-2023 13:50-0500 Body weight 70 kg DO Haresh Ball Work Phone: [facility] 09-30-2023 15:02-0500 Body height 167.64 cm DO Haresh Ball Work Phone: [facility] 09-30-2023 15:02-0500 Body mass index (BMI) [Ratio] 24 kg/m2 DO Haresh Ball Work Phone: [facility] 09-30-2023 15:02-0500 Body weight 67.58 kg DO Haresh Ball Work Phone: [facility] 09-30-2023 14:43-0500 Body temperature 97 [degF] DO Haresh Ball Work Phone: [facility] 09-30-2023 14:43-0500 Diastolic blood pressure 78 mm[Hg] DO Haresh Ball Work Phone: [facility] 09-30-2023 14:43-0500 Heart rate 78 /min DO Haresh Ball Work Phone: [facility] 09-30-2023 14:43-0500 Respiratory rate 20 /min DO Haresh Ball Work Phone: [facility] 09-30-2023 14:43-0500 Systolic blood pressure 154 mm[Hg] DO Haresh Ball Work Phone: [facility] 09-19-2023 14:00-0500 Body height 167.64 cm Haresh Ball Other [facility] 09-19-2023 14:00-0500 Body mass index (BMI) [Ratio] 24.66 kg/m2 Haresh Ball Other [facility] [employer] Other 09-19-2023 14:00-0500 Body weight 69.31 kg Haresh Ball Other [facility] [employer] Other 09-19-2023 14:00-0500 Body weight 69.3 kg DO Haresh Ball Work Phone: [facility] 09-19-2023 14:00-0500 Diastolic blood pressure 83 mm[Hg] Haresh Ball Other [facility] 09-19-2023 14:00-0500 Respiratory rate 12 /min Haresh Ball Other [facility] [employer] Other 09-19-2023 14:00-0500 Systolic blood pressure 136 mm[Hg] Haresh Ball Other [facility] 09-12-2023 10:15-0500 Body height 167.64 cm DO Haresh Ball Work Phone: [facility] 09-12-2023 10:15-0500 Body weight 70.39 kg DO Haresh Ball Work Phone: [facility] 09-12-2023 10:15-0500 Diastolic blood pressure 73 mm[Hg] DO Haresh Ball Work Phone: [facility] 09-12-2023 10:15-0500 Systolic blood pressure 120 mm[Hg] DO Haresh Ball Work Phone: [facility] 09-02-2023 11:00-0500 Body height 167.64 cm Haresh Ball Other [facility] 09-02-2023 11:00-0500 Body mass index (BMI) [Ratio] 25.14 kg/m2 Haresh Ball Other [facility] [employer] Other 09-02-2023 11:00-0500 Body weight 70.67 kg Haresh Ball Other [facility] Other 09-02-2023 11:00-0500 Body weight 70.66 kg DO Haresh Ball Work Phone: [facility] 09-02-2023 11:00-0500 Diastolic blood pressure 78 mm[Hg] Haresh Ball Other [facility] 09-02-2023 11:00-0500 Respiratory rate 12 /min Haresh Ball Other [facility] [employer] Other 09-02-2023 11:00-0500 Systolic blood pressure 134 mm[Hg] Haresh Ball Other [facility] 08-06-2023 14:00-0500 Diastolic blood pressure 81 mm[Hg] NA Catracho VILLEGAS Work Phone: [facility] 08-06-2023 14:00-0500 Systolic blood pressure 158 mm[Hg] JEROME Ramos MD Work Phone: [facility] 08-06-2023 13:55-0500 Body height 167.6 cm JEROME Ramos MD Work Phone: [facility] 08-06-2023 13:55-0500 Body weight 72.12 kg JEROME Ramos MD Work Phone: [facility] 08-06-2023 13:55-0500 Heart rate 77 /min JEROME Ramos MD Work Phone: [facility] 08-06-2023 13:55-0500 SaO2% (BldA) [Mass fraction] 98 % JEROME Ramos MD Work Phone: [facility] 07-08-2023 14:00-0400 Body height 167.64 cm Haresh Ball Other [employer] [facility] [employer] Other 07-08-2023 14:00-0400 Body mass index (BMI) [Ratio] 25.89 kg/m2 Haresh Ball Other [facility] Other 07-08-2023 14:00-0400 Body weight 72.76 kg Haresh Ball Other [facility] Other 07-08-2023 14:00-0400 Diastolic blood pressure 82 mm[Hg] Haresh Ball Other [facility] Other 07-08-2023 14:00-0400 Respiratory rate 12 /min Haresh Ball Other [facility] Other 07-08-2023 14:00-0400 Systolic blood pressure 141 mm[Hg] Haresh Ball Other [facility] Other 05-20-2023 15:30-0400 Body height 167.64 cm Emil Salinas Other [facility] Other 05-20-2023 15:30-0400 Body mass index (BMI) [Ratio] 25.5 kg/m2 Emil Salinas Other [facility] Other 05-20-2023 15:30-0400 Body weight 71.67 kg Emil Salinas Other [facility] Other 05-20-2023 15:30-0400 Diastolic blood pressure 71 mm[Hg] Emil Salinas Other [facility] Other 05-20-2023 15:30-0400 SaO2% (BldA) [Mass fraction] 94 % Emil Salinas Other [facility] Other 05-20-2023 15:30-0400 Systolic blood pressure 143 mm[Hg] Emil Salinas Other [facility] Other 04-09-2023 14:30-0400 Body height 167.64 cm Haresh Ball Other [facility] Other 04-09-2023 14:30-0400 Body mass index (BMI) [Ratio] 25.27 kg/m2 Haresh Ball Other [facility] Other 04-09-2023 14:30-0400 Body weight 71.03 kg Haresh Ball Other [facility] Other 04-09-2023 14:30-0400 Diastolic blood pressure 80 mm[Hg] Haresh Ball Other [facility] Other 04-09-2023 14:30-0400 Respiratory rate 12 /min Haresh Ball Other [facility] Other 04-09-2023 14:30-0400 Systolic blood pressure 130 mm[Hg] Haresh Ball Other [facility] Other 12-04-2022 15:30-0400 Body height 167.64 cm Haresh Ball Other [facility] Other 12-04-2022 15:30-0400 Body mass index (BMI) [Ratio] 25.01 kg/m2 Haresh Ball Other [facility] Other 12-04-2022 15:30-0400 Body weight 70.31 kg Haresh Ball Other [facility] Other 12-04-2022 15:30-0400 Diastolic blood pressure 84 mm[Hg] Haresh Ball Other [facility] Other 12-04-2022 15:30-0400 Respiratory rate 16 /min Haresh Ball Other [facility] Other 12-04-2022 15:30-0400 Systolic blood pressure 154 mm[Hg] Haresh Lino Other [facility] Other 11-19-2022 16:03-0500 Body height 167.6 cm Smita Reeves MD Work Phone: [facility] 11-19-2022 16:03-0500 Body weight 70.76 kg Smita Reeves MD Work Phone: [facility] 11-19-2022 16:03-0500 Diastolic blood pressure 88 mm[Hg] Smita Reeves MD Work Phone: [facility] 11-19-2022 16:03-0500 Heart rate 70 /min Smita Reeves MD Work Phone: [facility] 11-19-2022 16:03-0500 Systolic blood pressure 144 mm[Hg] Smita Reeves MD Work Phone: [facility] 06-17-2022 15:10-0400 Body height 167.64 cm Isael Lynch Other [facility] Other 06-17-2022 15:10-0400 Body mass index (BMI) [Ratio] 24.69 kg/m2 Isael Lynch Other [facility] Other 06-17-2022 15:10-0400 Body temperature 97.8 [degF] Isael Lynch Other [facility] Other 06-17-2022 15:10-0400 Body weight 69.4 kg Isael Lynch Other [facility] Other 06-17-2022 15:10-0400 Diastolic blood pressure 79 mm[Hg] Isael Lynch Other [facility] Other 06-17-2022 15:10-0400 SaO2% (BldA) [Mass fraction] 96 % Isael Lynch Other [facility] Other 06-17-2022 15:10-0400 Systolic blood pressure 144 mm[Hg] Isael Lynch Other [facility] Other 06-10-2022 14:00-0400 Body height 167.64 cm Isael Lynch Other [facility] Other 06-10-2022 14:00-0400 Body mass index (BMI) [Ratio] 24.69 kg/m2 Isael Lynch Other [facility] Other 06-10-2022 14:00-0400 Body temperature 98 [degF] Isael Lynch Other [facility] Other 06-10-2022 14:00-0400 Body weight 69.4 kg Isael Lynch Other [facility] Other 06-10-2022 14:00-0400 Diastolic blood pressure 72 mm[Hg] Isael Lynch Other [facility] Other 06-10-2022 14:00-0400 Respiratory rate 20 /min Isael Lynch Other [facility] Other 06-10-2022 14:00-0400 SaO2% (BldA) [Mass fraction] 96 % Isael Lynch Other [facility] Other 06-10-2022 14:00-0400 Systolic blood pressure 129 mm[Hg] Isael Lynch Other [facility] Other 05-16-2022 15:30-0400 Body height 167.64 cm Emil Salinas Other [facility] Other 05-16-2022 15:30-0400 Body mass index (BMI) [Ratio] 24.77 kg/m2 Emil Salinas Other [facility] Other 05-16-2022 15:30-0400 Body temperature 97.7 [degF] Emil Salinas Other [facility] Other 05-16-2022 15:30-0400 Body weight 69.63 kg Emil Salinas Other [facility] Other 05-16-2022 15:30-0400 Diastolic blood pressure 76 mm[Hg] Emil Salinas Other [facility] Other 05-16-2022 15:30-0400 SaO2% (BldA) [Mass fraction] 92 % Emil Salinas Other [facility] Other 05-16-2022 15:30-0400 Systolic blood pressure 153 mm[Hg] Emil Brad Other [facility] Other 03-11-2022 15:50-0400 Body weight 69.85 kg Smita Reeves MD Work Phone: [facility] 03-11-2022 15:50-0400 Diastolic blood pressure 74 mm[Hg] Smita Reeves MD Work Phone: [facility] 03-11-2022 15:50-0400 Heart rate 70 /min Smita Reeves MD Work Phone: [facility] 03-11-2022 15:50-0400 Systolic blood pressure 169 mm[Hg] Smita Reeves MD Work Phone: [facility] 02-07-2022 11:13-0400 Body height 167.6 cm Jesika Martin PA-C Work Phone: [facility] 02-07-2022 11:13-0400 Body weight 69.4 kg Jesika Bartone PA-C Work Phone: [facility] 02-07-2022 11:130400 Diastolic blood pressure 77 mm[Hg] Jesika Bartone PA-C Work Phone: [facility] 02-07-2022 11:13-0400 Heart rate 68 /min Jesika Bartone PA-C Work Phone: [facility] 02-07-2022 11:13-0400 Systolic blood pressure 150 mm[Hg] Jesika Bartone PA-C Work Phone: [facility] 02-05-2022 11:010400 Body height 167.64 cm DO Haresh Ball Work Phone: [facility] 02-05-2022 11:010400 Body weight 70.76 kg DO Haresh Ball Work Phone: [facility] 12-31-2021 11:21-0400 Body height 167.6 cm Jesika Bartone PA-C Work Phone: [facility] 12-31-2021 [id number] Body weight 68.95 kg Jesika Bartone PA-C Work Phone: [facility] 12-31-2021 11:21-0400 Diastolic blood pressure 78 mm[Hg] Jesika Bartone PA-C Work Phone: [facility] 12-31-2021 11:21-0400 Heart rate 77 /min Jesika Bartone PA-C Work Phone: [facility] 12-31-2021 11:21-0400 Systolic blood pressure 143 mm[Hg] Jesika Bartone PA-C Work Phone: [facility] 12-11-2021 13:41-0400 Body height 167.6 cm [facility] 12-11-2021 13:41-0400 Body weight 70.31 kg [facility] 12-11-2021 13:41-0400 Diastolic blood pressure 83 mm[Hg] [facility] 12-11-2021 13:41-0400 Heart rate 71 /min [facility] 12-11-2021 13:41-0400 SaO2% (BldA) [Mass fraction] 97 % [facility] 12-11-2021 13:41-0400 Systolic blood pressure 141 mm[Hg] [facility] Encounters Encounter Date Encounter Type Care Provider Facility Start: 03-15-2024 End: 03-15-2024 ambulatory DO Haresh Lino Work Phone: [facility] Work Phone: Start: 03-15-2024 End: 03-15-2024 Patient encounter procedure DO Haresh Lino Work Phone: [facility] Work Phone: Start: 03-08-2024 ambulatory Melissa Alanis Facility:[facility] Start: 03-08-2024 Registered Recurring DO Benjam in [place] Work Phone: [facility] Work Phone: Start: 03-03-2024 Telephone encounter Haresh Lino [facility] Start: 03-03-2024 End: 03-03-2024 ambulatory DO Haresh Lino Work Phone: [facility] Work Phone: Start: 03-03-2024 End: 03-03-2024 Patient encounter procedure DO Haresh Lino Work Phone: [facility] Work Phone: Start: 03-01-2024 End: 03-01-2024 ambulatory DO Haresh [place] Work Phone: [facility] Work Phone: Start: 03-01-2024 End: 03-01-2024 Patient encounter procedure DO Haresh Ball Work Phone: [facility] Gastroenterology Work Phone: Start: 02-24-2024 Registered Recurring DO Benjam in [place] Work Phone: [facility] Work Phone: Start: 02-18-2024 End: 02-18-2024 Patient encounter procedure DO Haresh Ball Work Phone: [facility] Work Phone: Start: 02-18-2024 End: 02-18-2024 ambulatory DO Haresh Ball Work Phone: [facility] Work Phone: Start: 02-10-2024 Registered Recurring DO Benjam in [place] Work Phone: [facility] Work Phone: Start: 01-24-2024 Refrubina baca MD Work Phone: Cardiology Comment on above: Refill Request Start: 01-22-2024 End: 01-22-2024 ambulatory RONY Cameron SMITH Not Available Start: 01-21-2024 End: 01-21-2024 ambulatory DO Haresh Ball Work Phone: [facility] Work Phone: Start: 01-21-2024 End: 01-21-2024 Patient encounter procedure DO Haresh [place] Work Phone: [facility] Work Phone: Start: 01-19-2024 Registered Recurring DO Benjam in [place] Work Phone: [facility] Work Phone: Start: 12-25-2023 End: 12-25-2023 ambulatory JOLIE GOSS Not Available Start: 12-24-2023 End: 12-24-2023 ambulatory DO Haresh Ball Work Phone: [facility] Work Phone: Start: 12-24-2023 End: 12-24-2023 Patient encounter procedure DO Haresh Ball Work Phone: [facility] Work Phone: Start: 12-18-2023 Non-patient / Non-visit DO Jasvir Lino Work Phone: [facility] Work Phone: Start: 12-18-2023 End: 12-19-2023 ambulatory Beverly Polanco MD Work Phone: Cardiology Start: 12-18-2023 End: 12-18-2023 Patient encounter procedure Beverly Polanco MD Work Phone: [facility] Start: 12-15-2023 End: 12-15-2023 ambulatory DO Haresh Lino Work Phone: [facility] Work Phone: Start: 12-15-2023 End: 12-15-2023 Patient encounter procedure DO Haresh Lino Work Phone: [facility] Work Phone: Start: 12-11-2023 End: 12-11-2023 ambulatory DO Haresh Lino Work Phone: [facility] Work Phone: Start: 12-11-2023 End: 12-11-2023 Patient encounter procedure DO Haresh Lino Work Phone: [facility] Work Phone: Start: 12-03-2023 Registered Recurring DO Iliana in [place] Work Phone: [facility] Work Phone: Start: 12-02-2023 End: 12-02-2023 ambulatory Ed Barlow APRN.FILM HISTORIAN Work Phone: Cardiology Comment on above: test Start: 12-02-2023 E-mail encounter fro m caregiver Ed Barlow APRN.FILM HISTORIAN Work Phone: [facility] Start: 12-02-2023 Telephone encounter Beverly raines MD Work Phone: Cardiology Comment on above: Appointment Start: 12-02-2023 End: 12-02-2023 Patient encounter procedure DO Haresh Lino Work Phone: [facility] Work Phone: Start: 11-26-2023 End: 11-26-2023 Patient encounter procedure DO Haresh Lino Work Phone: [facility] Work Phone: Start: 11-26-2023 Registered Recurring DO Benjam in [place] Work Phone: [facility] Work Phone: Start: 11-18-2023 Non-patient / Non-visit DO Jasvir Lino Work Phone: [facility] Gastroenterology Work Phone: Start: 11-18-2023 End: 11-18-2023 Admission to same day surgery center DO Haresh Lino Work Phone: [facility] Work Phone: Start: 11-18-2023 End: 11-18-2023 ambulatory Jean Carlos Jimenez Facility:[facility] Start: 11-10-2023 End: 11-10-2023 Patient encounter procedure DO Haresh Lino Work Phone: [facility] Work Phone: Start: 11-04-2023 End: 11-04-2023 ambulatory RONY A HÉCTOR Not Available Start: 11-03-2023 Registered Recurring DO Jinam in [place] Work Phone: [facility] Work Phone: Start: 10-30-2023 End: 10-30-2023 Patient encounter procedure DO Haresh Lino Work Phone: [facility] Work Phone: Start: 10-30-2023 End: 10-30-2023 ambulatory DO Haresh Lino Work Phone: [facility] Work Phone: Start: 10-27-2023 Registered Recurring DO Iliana in [place] Work Phone: [facility] Work Phone: Start: 10-23-2023 Bamboo flowsheet Rony whatley MD Work Phone: [facility] Start: 10-23-2023 Bamboo flowsheet Rony whatley MD Work Phone: [facility] Start: 10-23-2023 Telephone encounter Shama sommer Comment on above: Appointment Start: 10-23-2023 End: 10-23-2023 Office outpatient visit 15 minutes Rony Smith MD Work Phone: [facility] Comment on above: Seborrheic keratosis (Primary Dx); Lentigines; Rash and other nonspecific skin eruption; History of malignant melanoma of skin; Epidermal inclusion cyst Start: 10-23-2023 End: 10-23-2023 ambulatory RONY SMITH Not Available Start: 10-21-2023 End: 10-21-2023 ambulatory Jean Carlos Jimenez Other [facility] Other Start: 10-21-2023 Telephone encounter Jean Carlos Reyes [facility] Start: 10-20-2023 End: 10-20-2023 ambulatory Apoorva Fitt Other [facility] Other Start: 10-20-2023 Telephone encounter Ed mcguire HOSPITAL CHIEF FINANCIAL OFFICER.FILM HISTORIAN Work Phone: Cardiology Comment on above: Proof Plate Maker - O ther Start: 10-15-2023 End: 10-15-2023 ambulatory Apoorva Fitt Other [facility] Other Start: 10-15-2023 Office outpatient vi sit 25 minutes Haresh Lino [facility] Start: 10-15-2023 Telephone encounter Apoorva Morrisjan [facility] Comment on above: Patient Update Start: 10-15-2023 End: 10-15-2023 Patient encounter procedure DO Haresh Lino Work Phone: [facility]- Start: 10-14-2023 End: 10-14-2023 Emergency department patient visit DO Haresh Lino Work Phone: [facility] Work Phone: Start: 10-13-2023 End: 10-13-2023 Discharged Recurring DO Haresh Lino Work Phone: [facility] Work Phone: Start: 10-13-2023 Registered Recurring DO Jinam in [place] Work Phone: [facility] Work Phone: Start: 10-13-2023 ([facility] CAMPUS) R A/c) [facility] Re peat A/C Radha Escobar [facility] Start: 10-13-2023 End: 10-13-2023 ambulatory DO Haresh Lino Work Phone: [facility] Other Start: 10-02-2023 ([facility] R A/c) [facility] Re peat A/C Siria Galloway [facility] Start: 10-02-2023 End: 10-02-2023 ambulatory JOLIE GOSS [facility] [employer] Other Start: 09-30-2023 Registered Recurring DO Benjam in [place] Work Phone: [facility] Work Phone: Start: 09-26-2023 End: 09-26-2023 ambulatory Apoorva Morrisjan Other [facility] Other Start: 09-26-2023 Telephone encounter Apoorva Love [facility] Start: 09-25-2023 End: 09-25-2023 ambulatory HARESH LINO Facility:[facility] Start: 09-25-2023 End: 09-25-2023 ambulatory FLOWERMIRIANKATHLEEN SHELLIEROBLESCATHY Facility:[facility] Start: 09-24-2023 Telephone encounter Haresh Lino JOHN G [facility] Start: 09-24-2023 End: 09-24-2023 ambulatory LIZETT MCGOWAN [place] [employer] Other Start: 09-24-2023 Patient encounter procedure DO Haresh Lino Work Phone: [facility] Start: 09-23-2023 End: 09-23-2023 ambulatory HARESH LINO Facility:[facility] Start: 09-23-2023 End: 09-24-2023 ambulatory HARESH LINO Facility:[facility] Start: 09-19-2023 End: 09-19-2023 ambulatory Haresh Lino Other [facility] Other Start: 09-19-2023 Office outpatient vi sit 15 minutes Haresh Lino [facility] Start: 09-19-2023 End: 09-19-2023 Patient encounter procedure DO Haresh Lino Work Phone: [facility] Work Phone: Start: 09-18-2023 ([facility] R A/c) [facility] Re peat A/C Radha Escobar [facility] Start: 09-18-2023 End: 09-18-2023 ambulatory Radha Escobar Other [facility] Other Start: 09-16-2023 End: 09-16-2023 ambulatory Apoorva Love Other [facility] Other Start: 09-16-2023 Telephone encounter Apoorva Leong [facility] Start: 09-12-2023 End: 09-12-2023 Patient encounter procedure DO Haresh Lino Work Phone: [facility] Work Phone: Start: 09-10-2023 ([facility] R A/c) [facility] Re peat A/C Radha Escobar [facility] Start: 09-10-2023 End: 09-10-2023 ambulatory Radha Lopezber Other [facility] Other Start: 09-03-2023 End: 09-03-2023 ambulatory Apoorva Love Other [facility] Other Start: 09-03-2023 Telephone encounter Apoorva Leong [facility] Start: 09-02-2023 End: 09-02-2023 ambulatory Haresh Lino Other [facility] Other Start: 09-02-2023 Patient encounter procedure Haresh Lino [facility] Start: 09-02-2023 End: 09-02-2023 Patient encounter procedure DO Haresh Lino Work Phone: [facility] Work Phone: Start: 09-01-2023 ([facility] R A/c) [facility] Re peat A/C Radha Shawn [facility] Start: 09-01-2023 End: 09-01-2023 ambulatory Radha Shawn Other [facility] Other Start: 09-01-2023 Telephone encounter Apoorva Leong [facility] Start: 08-26-2023 End: 08-26-2023 ambulatory RONY DICKCHRISTINA Not Available Start: 08-18-2023 End: 08-18-2023 ambulatory Haresh Lino Other [facility] Other Start: 08-18-2023 Telephone encounter Haresh Lino FP Replaced By [facility] Start: 08-14-2023 End: 08-14-2023 ambulatory Ed Barlow APRN.FILM HISTORIAN Work Phone: Cardiology Comment on above: Update Start: 08-14-2023 E-mail encounter fro m caregiver Ed Barlow APRN.FILM HISTORIAN Work Phone: [facility] Start: 08-14-2023 Telephone encounter Apoorva Love Dang lucero [facility] Comment on above: Appointment Reschedu led Start: 08-13-2023 End: 08-14-2023 ambulatory Ed Barlow APRN.FILM HISTORIAN Work Phone: Cardiology Start: 08-13-2023 End: 08-13-2023 Patient encounter procedure [facility] Cardiology Comment on above: Nonrheumatic tricusp id valve regurgitation (Primary Dx); Chronic diastolic heart failure (HCC) Start: 08-13-2023 Encounter for preprocedural cardiovascular examination HARESH LINO [facility] Start: 08-13-2023 End: 08-13-2023 Patient encounter status Xr J1 Work Phone: [facility] Start: 08-13-2023 End: 08-13-2023 Subsequent hospital visit by physician Xr Chest Main J1 Work Phone: Radiology Comment on above: Encounter for prepro cedural cardiovascular examination [Z01.810] Start: 08-06-2023 End: 08-07-2023 ambulatory HARESH LINO Facility:[facility] Start: 08-06-2023 End: 08-06-2023 ambulatory HARESH LINO Facility:[facility] Start: 08-06-2023 End: 08-06-2023 Patient encounter procedure Esthela Ramos MD Work Phone: Cardiology Comment on above: Permanent atrial fib rillation (HCC) (Primary Dx); Stage 3a chronic kidney disease (HCC); Non-ischemic cardiomyopathy (HCC); Primary hypertension; Nonrheumatic tricuspid valve regurgitation; Acute on chronic diastolic CHF (congestive heart failure) (HCC) Start: 07-08-2023 End: 07-08-2023 ambulatory Haresh Lino Other [facility] Other Start: 07-08-2023 Office outpatient vi sit 25 minutes Haresh ASIF [facility] Start: 06-06-2023 Telephone encounter Ed mcguire APRN.FILM HISTORIAN Work Phone: Cardiology Start: 06-03-2023 ([facility] R A/c) [facility] Re peat A/C Apoorva Love [facility] Start: 06-03-2023 End: 06-03-2023 ambulatory Apoorva Kate Other [facility] [employer] Other Start: 05-27-2023 End: 05-27-2023 ambulatory Rasta [facility] Facility:[facility] Start: 05-22-2023 End: 05-22-2023 ambulatory Haresh Lino Other [facility] [employer] Other Start: 05-22-2023 Telephone encounter Haresh LOPEZ Replaced By [facility] Start: 05-21-2023 ambulatory Ed julio APRN.FILM HISTORIAN Work Phone: Cardiology Comment on above: Tricuspid Valve Eval uation Start: 05-21-2023 E-mail encounter fro m caregiver Ed Barlow APRN.FILM HISTORIAN Work Phone: [facility] Start: 05-20-2023 End: 05-20-2023 Patient encounter procedure DO Haresh Lino Work Phone: [facility] Work Phone: Start: 05-20-2023 End: 05-20-2023 ambulatory DO Haresh Lino Work Phone: [facility] Work Phone: Start: 05-20-2023 Office outpatient vi sit 15 minutes Emil [facility] Start: 05-15-2023 ambulatory Ed julio HOSPITAL CHIEF FINANCIAL OFFICER.FILM HISTORIAN Work Phone: Cardiology Comment on above: Tricuspid Valve Start: 05-15-2023 E-mail encounter fro m caregiver Ed Barlow APRN.FILM HISTORIAN Work Phone: [facility] Start: 05-12-2023 Registered Recurring DO Iliana hernadez [place] Work Phone: [facility] Work Phone: Start: 05-07-2023 End: 05-07-2023 ambulatory Haresh Lino Other [facility] Other Start: 05-07-2023 Telephone encounter Haresh LOPEZ Replaced By [facility] Start: 05-02-2023 ambulatory Ed Marie Dialloriaz nori HOSPITAL CHIEF FINANCIAL OFFICER.FILM HISTORIAN Work Phone: Cardiology Comment on above: Tricuspid Valve Valvular Heart Disea se Start: 05-02-2023 E-mail encounter fro m caregiver Ed Marie Cain HOSPITAL CHIEF FINANCIAL OFFICER.FILM HISTORIAN Work Phone: [facility] Start: 05-02-2023 Patient encounter status Michelle Marie Cain HOSPITAL CHIEF FINANCIAL OFFICER.FILM HISTORIAN Work Phone: [facility] Work Phone: Start: 04-23-2023 ([facility] R A/c) [facility] Re peat A/C Radha Escobar [facility] Start: 04-23-2023 End: 04-23-2023 ambulatory Radha Escobar Other [facility] Other Start: 04-17-2023 Telephone encounter Beverly raines MD Work Phone: Cardiology Comment on above: Patient Update (Move Forward With Procedure Discussed at 04/04/23 OV) Start: 04-09-2023 Office outpatient vi sit 25 minutes Haresh Lino [facility] Start: 04-09-2023 End: 04-09-2023 Orders Only Beverly Polanco MD Work Phone: Cardiology Comment on above: 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) Start: 04-06-2023 End: 04-06-2023 ambulatory Haresh Lino Other [facility] Other Start: 04-06-2023 Telephone encounter Haresh LOPEZ Replaced By [facility] Start: 04-04-2023 End: 04-04-2023 ambulatory HARESH LINO Facility:[facility] Start: 03-28-2023 End: 03-28-2023 ambulatory Haresh Lino Other [facility] Other Start: 03-28-2023 Nursing evaluation o f patient and report Haresh Lino [facility] [place] [facility] Start: 03-19-2023 ([facility] R A/c) [facility] Re peat A/C Radha Bridgeport [facility] Start: 03-19-2023 End: 03-19-2023 ambulatory Radha [place] Other [facility] Other Start: 03-06-2023 End: 03-06-2023 ambulatory Haresh Lino Other [facility] Other Start: 03-06-2023 Telephone encounter Haresh Lino [facility] Start: 02-11-2023 ([facility] R A/c) [facility] A[facility] Start: 02-11-2023 End: 02-11-2023 ambulatory Radha Shawn Other [facility] Other Start: 01-06-2023 ([facility] R A/c) [facility] Re peat A/C Radha Shawn [facility] Start: 01-06-2023 End: 01-06-2023 ambulatory Radha [place] Other [facility] Other Start: 12-23-2022 ([facility] R A/c) [facility] Re peat A/C Radha [place] [facility] Start: 12-23-2022 End: 12-23-2022 ambulatory Apoorvakatelyn Cacerest Other [facility] Other Start: 12-23-2022 Telephone encounter Apoorva Love [facility] Start: 12-17-2022 End: 12-17-2022 ambulatory Haresh Lino Other [facility] Other Start: 12-17-2022 Telephone encounter Haresh LOPEZ G [facility] Start: 12-16-2022 End: 12-16-2022 Patient encounter procedure DO Haresh Lino Work Phone: [facility] [place] Work Phone: Start: 12-16-2022 End: 12-16-2022 ambulatory DO Haresh Lino Work Phone: [facility] Work Phone: Start: 12-16-2022 Telephone encounter Haresh Mccallum [facility] Start: 12-11-2022 Registered Recurring DO Iliana in [place] Work Phone: [facility] Work Phone: Start: 12-11-2022 ([facility] R A/c) [facility] Re peat A/C Radha Escobar [facility] Start: 12-11-2022 End: 12-11-2022 ambulatory Radha Escobar Other [facility] Other Start: 12-04-2022 End: 12-04-2022 ambulatory Haresh Lino Other [facility] Other Start: 12-04-2022 Office outpatient vi sit 25 minutes Haresh Lino [facility] Start: 11-27-2022 ([facility] R A/c) [facility] Re peat A/C Siria Galloway [facility] Start: 11-27-2022 End: 11-27-2022 ambulatory Siria Galloway Other [facility] Other Start: 11-19-2022 End: 11-19-2022 Patient encounter procedure Smita Reeves MD Work Phone: Cardiology Comment on above: Mitral valve stenosi s, rheumatic (Primary Dx); Chronic atrial fibrillation (HCC); Hx of maze procedure; History of MVR with cardiopulmonary bypass; Tricuspid valve insufficiency, unspecified etiology; Pulmonary HTN (HCC); S/P MVR (mitral valve replacement) Start: 10-28-2022 ([facility] R A/c) [facility] Re peat A/C Radha Escobar [facility] Start: 10-28-2022 End: 10-28-2022 ambulatory Radha Escobar Other [facility] Other Start: 10-22-2022 End: 10-22-2022 ambulatory Haresh Lino Other [facility] Other Start: 10-22-2022 Telephone encounter [facility]resh [facility] Start: 09-30-2022 End: 09-30-2022 ambulatory Apoorva Love Other [facility] Other Start: 09-30-2022 Telephone encounter Apoorvakatelyn Leong [facility] Start: 09-26-2022 (New AC) New Visit (coumadin) Radha Escobar [facility] Start: 09-26-2022 End: 09-26-2022 ambulatory Radha Escobar Other [facility] Other Start: 09-18-2022 End: 09-18-2022 ambulatory Apoorva Love Other [facility] Other Start: 09-18-2022 Telephone encounter Apoorva Leong [facility] Start: 09-17-2022 End: 09-17-2022 ambulatory DO Haresh [place] Work Phone: [facility] Work Phone: Start: 09-17-2022 End: 09-17-2022 Patient encounter procedure DO Haresh [place] Work Phone: [facility] Work Phone: Start: 08-30-2022 Adult health examination Estuardo Lino Other [facility] Other Start: 08-15-2022 End: 08-16-2022 ambulatory BELTRAN H DMITRIY Facility:[facility] Start: 07-16-2022 End: 08-14-2022 ambulatory SHAIKH Jackelin IZAGUIRRE Facility:[facility] Start: 06-17-2022 End: 06-17-2022 ambulatory Isael Lynch Other [facility] Other Start: 06-17-2022 Office outpatient vi sit 15 minutes Isael Lynch [facility] Start: 06-16-2022 End: 07-15-2022 ambulatory SHAIKH Jackelin [place] Facility:[facility] Start: 06-10-2022 End: 06-10-2022 ambulatory Isael Lynch Other [facility] Other Start: 06-10-2022 Office outpatient vi sit 15 minutes Isael Cris [facility]gent [facility] Start: 05-28-2022 End: 05-29-[address] HARESH LINO Facility:[facility] Start: 05-17-2022 Registered Recurring DO Barrientos in [place] Work Phone: [facility] Start: 05-16-2022 End: 05-16-2022 Patient encounter procedure DO Haresh Lino Work Phone: [facility] Start: 05-16-2022 Office outpatient ne w 45 minutes Emil [facility] Start: 05-16-2022 End: 06-15-2022 ambulatory SHAIKH Jackelin IZAGUIRRE [place] [employer] Other Start: 04-15-2022 End: 05-15-2022 ambulatory SHAIKH Jackelin IZAGUIRRE Facility:[facility] Start: 03-15-2022 End: 04-12-2022 ambulatory SHAIKH Jackelin IZAGUIRRE Facility:[facility] Start: 03-11-2022 End: 03-11-2022 Patient encounter procedure Smita Reeves MD Work Phone: Cardiology Comment on above: Mitral valve stenosi s, rheumatic (Primary Dx); Chronic atrial fibrillation (HCC); Hx of maze procedure; History of MVR with cardiopulmonary bypass; Aortic valve stenosis, etiology of cardiac valve disease unspecified; Tricuspid valve insufficiency, unspecified etiology; Pulmonary HTN (HCC); S/P MVR (mitral valve replacement) Start: 02-13-2022 End: 03-15-2022 ambulatory [facility] Facility: Start: 02-07-2022 End: 02-07-2022 Patient encounter procedure Jesika Martin PA-C Work Phone: Cardiology Comment on above: 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); Stenosis of prosthetic mitral valve, subsequent encounter; Severe tricuspid regurgitation; Essential hypertension; Atrial fibrillation, chronic (HCC) Start: 01-14-2022 End: 02-12-2022 ambulatory [facility] Facility: Start: 12-31-2021 End: 12-31-2021 Patient encounter procedure Jesika Martin PA-C Work Phone: Cardiology Comment on above: Stenosis of prosthet ic mitral valve, subsequent encounter (Primary Dx); Rheumatic mitral stenosis; Severe tricuspid regurgitation; Essential hypertension; Atrial fibrillation, chronic (HCC); S/P transcatheter mitral valve replacement (TMVR) Start: 12-16-2021 Telephone encounter Bharath king APRN.CNP Work Phone: Cardiothoracic Comment on above: Back Pain Start: 12-15-2021 Telephone encounter Marcella benítez APRN.CNP Work Phone: Cardiothoracic Comment on above: Patient Question (ba ck pain) Start: 12-14-2021 End: 01-11-2022 ambulatory [facility] Facility: Start: 12-12-2021 Orders Only Beverly barnes MD Work Phone: Cardiology Comment on above: 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) Start: 12-11-2021 End: 12-11-2021 Admission to same day surgery center Anesthesia Clearance Work Phone: Cardiothoracic Start: 12-11-2021 End: 12-11-2021 Patient encounter procedure Anesthesia Clearance Work Phone: Cardiothoracic Comment on above: Encounter for preope rative anesthesiology assessment for cardiac surgery (Primary Dx) Stenosis of prosthet ic mitral valve, subsequent encounter (Primary Dx); Rheumatic mitral stenosis; Severe tricuspid regurgitation; Essential hypertension; Atrial fibrillation, chronic (HCC); KATHERINE (acute kidney injury) (HCC) Start: 11-13-2021 End: 12-13-2021 ambulatory SHAIKH Jackelin IZAGUIRRE Facility:[facility] Start: 10-16-2021 End: 11-12-2021 ambulatory BELTRAN H FAEmmaWAD Facility:[facility] Start: 10-11-2021 End: 10-15-2021 ambulatory BELTRAN Jackelin SMITHIDRobbie Facility:[facility] Start: 05-25-2021 Telephone encounter Cynthia Palma MD Work Phone: Ophthalmology Comment on above: Insurance Inquiry Start: 05-07-2021 End: 09-11-2021 Pre-admission assessment Braydon Dawkins [facility] Start: 10-22-2017 Ambulatory SHABBIR GARCIA [facility] [id number] Start: 10-22-2017 Ambulatory Facility:[id number] Procedures Date Procedure Procedure Detail Performing Clinician Start: 12-03-2023 Investigation of tra nsfusion reaction DO [employer] Work Phone: Start: 11-18-2023 Colonoscopy DO [employer] Work Phone: Start: 11-03-2023 Investigation of tra nsfusion reaction DO [employer] Work Phone: Start: 10-14-2023 Screening for occult blood in feces DO [email or web address] Phone: Start: 08-13-2023 Radiologic exam ches t 2 views Beverly Polanco MD Work Phone: Start: 12-16-2022 Doppler ultrasonogra phy of bilateral carotid arteries DO [employer] Work Phone: Start: 09-17-2022 Dual energy X-ray absorptiometry DO [email or web address] Phone: Start: 11-04-2019 Echocardiography Start: 05-28-2016 Screening for malign ant neoplasm of colon Haresh Lino Other Start: 05-25-2015 Screening for osteoporosis Haresh Lino Other Start: 05-25-2015 Screening mammography B rajan Lino Other Start: 05-31-2013 Heart valve replacement Haresh Lino Other Coronary artery bypa ss graft x 1 Braydon Dawkins Depression screening Wm Lino Other Repair of heart valve Braydon Dawkins Comment on above: Mitral Valve Repair Plan of Treatment Date Care Activity Detail Author Start: 06-10-2032 Urine microalbumin profile DTaP,Tdap,Td Vaccine (3 - Td or Tdap) [facility] Start: 12-17-2026 [facility] Start: 09-23-2026 [facility] Start: 08-13-2026 [facility] Start: 08-06-2026 [facility] Start: 12-13-2024 DIABETES SCREEN DIABETES SCREEN [facility] Start: 12-13-2024 Diabetes Screening Diabetes Screenmo g [facility] Start: 12-11-2024 DIABETES SCREEN DIABETES SCREEN [facility] Start: 04-21-2024 End: 04-21-2024 Patient encounter procedure 04/21/2024 1:20 PM EDT Office Visit Cardiology [id number] [place] [phone] [place] [address] [place] [address] 1 YR F/U Cardiology Comment on above: 1 YR F/U Start: 04-09-2024 End: 04-09-2024 Echocardiography ECHO Cardiology Routine S/P transcatheter mitral valve replacement (TMVR) Expected: 04/09/2024, Expires: 04/09/2024 [facility] Work Phone: Comment on above: Expected: 04/09/2024 , Expires: 04/09/2024 Start: 01-22-2024 End: 01-22-2024 Patient encounter procedure 01/22/2024 1:00 PM EDT Office Visit [facility] [address] [place] [phone] Rony Smith MD [address] [place] [address] [facility] Start: 12-25-2023 End: 12-25-2023 Patient encounter procedure 12/25/2023 1:45 PM EDT Office Visit [facility] [address] [place] [phone] Jolie Goss, DPM [address] [place] [address] [facility] Start: 11-18-2023 [facility] Start: 11-13-2023 End: 11-13-2023 Patient encounter procedure 11/13/2023 1:45 PM EST Office Visit [facility] [address] [place] [phone] Jolie Goss, DPM [address] [place] [address] [facility] Start: 10-23-2023 End: 10-23-2023 Patient encounter procedure 10/23/2023 1:00 PM EST Office Visit [facility] [address] [place] [phone] Rony Smith MD [address] [place] [address] Arrived [facility] Comment on above: Arrived Start: 10-19-2023 Covid-19 Vaccine (2022- season) Covid-19 Vaccine ( season) [facility] Start: 09-15-2023 Advance Directive Discussion Advance Directive Discussion [facility] Start: 09-15-2023 Behavioral Health Screening Behavioral Health Screening [facility] Start: 09-15-2023 Depression Assessment Depression Ass essment [facility] Start: 08-27-2023 End: 11-26-2023 PT panel - Platelet poor plasma by Coagulation assay PROTHROMBIN TIME/PT Lab STAT Nonrheumatic tricuspid valve regurgitation Chronic diastolic heart failure (HCC) Permanent atrial fibrillation (HCC) Expected: 08/27/2023 (Approximate), Expires: 11/26/2023 [facility] Work Phone: Comment on above: Expected: 08/27/2023 (Approximate), Expires: 11/26/2023 Start: 08-13-2023 End: 11-12-2023 Basic metabolic 2000 panel - Serum or Plasma BASIC METABOLIC PNL Lab Routine Permanent atrial fibrillation (HCC) Stage 3a chronic kidney disease (HCC) Non-ischemic cardiomyopathy (HCC) Expected: 08/13/2023 (Approximate), Expires: 11/12/2023 [facility] Work Phone: Comment on above: Expected: 08/13/2023 (Approximate), Expires: 11/12/2023 Start: 08-13-2023 End: 11-12-2023 CBC W Auto Differential panel - Blood CBC + DIFF Lab Routine Nonrheumatic tricuspid valve regurgitation Chronic diastolic heart failure (HCC) Permanent atrial fibrillation (HCC) Expected: 08/13/2023, Expires: 11/12/2023 [facility] Work Phone: Comment on above: Expected: 08/13/2023 , Expires: 11/12/2023 Start: 08-13-2023 End: 11-12-2023 Comprehensive metabolic 2000 panel - Serum or Plasma COMP METABOLIC PANEL Lab Routine Nonrheumatic tricuspid valve regurgitation Chronic diastolic heart failure (HCC) Permanent atrial fibrillation (HCC) Expected: 08/13/2023, Expires: 11/12/2023 [facility] Work Phone: Comment on above: Expected: 08/13/2023 , Expires: 11/12/2023 Start: 08-13-2023 End: 11-12-2023 Natriuretic peptide.B prohormone N-Terminal [Mass/volume] in Serum or Plasma NT PRO BNP Lab Routine Nonrheumatic tricuspid valve regurgitation Chronic diastolic heart failure (HCC) Permanent atrial fibrillation (HCC) Expected: 08/13/2023, Expires: 11/12/2023 [facility] Work Phone: Comment on above: Expected: 08/13/2023 , Expires: 11/12/2023 Start: 07-30-2023 End: 09-10-2023 CBC W Auto Differential panel - Blood CBC + DIFF Lab STAT Encounter for preprocedural cardiovascular examination Nonrheumatic tricuspid valve regurgitation Chronic right-sided heart failure (HCC) IGLESIAS (dyspnea on exertion) Atrial fibrillation, chronic (HCC) Expected: 07/30/2023, Expires: 09/10/2023 [facility] Work Phone: Comment on above: Expected: 07/30/2023 , Expires: 09/10/2023 Start: 07-30-2023 End: 09-10-2023 CK TOTAL AND CK-MB CK TOTAL AND CK-MB Lab STAT Encounter for preprocedural cardiovascular examination Nonrheumatic tricuspid valve regurgitation Chronic right-sided heart failure (HCC) IGLESIAS (dyspnea on exertion) Atrial fibrillation, chronic (HCC) Expected: 07/30/2023, Expires: 09/10/2023 [facility] Work Phone: Comment on above: Expected: 07/30/2023 , Expires: 09/10/2023 Start: 07-30-2023 End: 09-10-2023 Comprehensive metabolic 2000 panel - Serum or Plasma COMP METABOLIC PANEL Lab STAT Encounter for preprocedural cardiovascular examination Nonrheumatic tricuspid valve regurgitation Chronic right-sided heart failure (HCC) IGLESIAS (dyspnea on exertion) Atrial fibrillation, chronic (HCC) Expected: 07/30/2023, Expires: 09/10/2023 [facility] Work Phone: Comment on above: Expected: 07/30/2023 , Expires: 09/10/2023 Start: 07-30-2023 End: 09-10-2023 CREATININE BLD CREATININE BLD Lab STAT Encounter for preprocedural cardiovascular examination Nonrheumatic tricuspid valve regurgitation Chronic right-sided heart failure (HCC) IGLESIAS (dyspnea on exertion) Atrial fibrillation, chronic (HCC) Expected: 07/30/2023, Expires: 09/10/2023 [facility] Work Phone: Comment on above: Expected: 07/30/2023 , Expires: 09/10/2023 Start: 07-30-2023 End: 09-10-2023 Gamma glutamyl transferase [Enzymatic activity/volume] in Serum or Plasma GGT BLD Lab STAT Encounter for preprocedural cardiovascular examination Nonrheumatic tricuspid valve regurgitation Chronic right-sided heart failure (HCC) IGLESIAS (dyspnea on exertion) Atrial fibrillation, chronic (HCC) Expected: 07/30/2023, Expires: 09/10/2023 [facility] Work Phone: Comment on above: Expected: 07/30/2023 , Expires: 09/10/2023 Start: 07-30-2023 End: 09-10-2023 HIGH SENSITIVITY TROPONIN T HIGH SENSITIVITY TROPONIN T Lab STAT Encounter for preprocedural cardiovascular examination Nonrheumatic tricuspid valve regurgitation Chronic right-sided heart failure (HCC) IGLESIAS (dyspnea on exertion) Atrial fibrillation, chronic (HCC) Expected: 07/30/2023, Expires: 09/10/2023 [facility] Work Phone: Comment on above: Expected: 07/30/2023 , Expires: 09/10/2023 Start: 07-30-2023 End: 09-10-2023 Natriuretic peptide.B prohormone N-Terminal [Mass/volume] in Serum or Plasma NT PRO BNP Lab STAT Encounter for preprocedural cardiovascular examination Nonrheumatic tricuspid valve regurgitation Chronic right-sided heart failure (HCC) IGLESIAS (dyspnea on exertion) Atrial fibrillation, chronic (HCC) Expected: 07/30/2023, Expires: 09/10/2023 [facility] Work Phone: Comment on above: Expected: 07/30/2023 , Expires: 09/10/2023 Start: 07-30-2023 End: 09-10-2023 PT panel - Platelet poor plasma by Coagulation assay PROTHROMBIN TIME/PT Lab STAT Encounter for preprocedural cardiovascular examination Nonrheumatic tricuspid valve regurgitation Chronic right-sided heart failure (HCC) IGLESIAS (dyspnea on exertion) Atrial fibrillation, chronic (HCC) Expected: 07/30/2023, Expires: 09/10/2023 [facility] Work Phone: Comment on above: Expected: 07/30/2023 , Expires: 09/10/2023 Start: 07-30-2023 End: 09-10-2023 Urate [Mass/volume] in Serum or Plasma URIC ACID BLOOD Lab STAT Encounter for preprocedural cardiovascular examination Nonrheumatic tricuspid valve regurgitation Chronic right-sided heart failure (HCC) IGLESIAS (dyspnea on exertion) Atrial fibrillation, chronic (HCC) Expected: 07/30/2023, Expires: 09/10/2023 [facility] Work Phone: Comment on above: Expected: 07/30/2023 , Expires: 09/10/2023 Start: 05-16-2023 Influenza vaccination [facility] Start: 10-30-2022 COVID-19 VACCINE (6 - Moderna series) COVID-19 VACCINE (6 - Moderna series) [facility] Start: 09-15-2022 ADVANCE DIRECTIVE DISCUSSION ADVANCE DIRECTIVE DISCUSSION [facility] Start: 09-15-2022 DEPRESSION ASSESSMENT DEPRESSION ASS ESSMENT [facility] Start: 05-16-2022 Influenza vaccination INFLUENZA (Sea son Ended) [facility] Start: 12-05-2021 COVID-19 VACCINE (4 - Booster for Moderna series) COVID-19 VACCINE (4 - Booster for Moderna series) [facility] Start: 09-15-2021 ADVANCE DIRECTIVE DISCUSSION ADVANCE DIRECTIVE DISCUSSION [facility] Start: 05-16-2021 Influenza vaccination INFLUENZA (#1) [facility] Start: 06-17-2017 Pneumococcal Vaccine : 65+ Years (2 - PPSV23 or PCV20) Pneumococcal Vaccine: 65+ Years (2 - PPSV23 or PCV20) [facility] Start: 2001 BONE DENSITY BONE DENSITY [facility] Start: 2001 Bone Density Screening Bone Density Screening [facility] Start: 2001 PNEUMOVAX AGE 65 AND OVER WITH 5YR LOOKBACK (#1) PNEUMOVAX AGE 65 AND OVER WITH 5YR LOOKBACK (#1) [facility] Start: 2001 Screening for osteoporosis Bone Density Screening [facility] Start: 1996 RSV Vaccine (1 - 1-d ose 60+ series) RSV Vaccine (1 - 1-dose 60+ series) [facility] Start: 1986 SHINGRIX VACCINE (1 of 2) BUENROSTRO GRIX VACCINE (1 of 2) [facility] Start: 1955 Urine microalbumin profile [facility] Start: 1942 Pneumococcal Vaccine : 65+ (1 - PCV) Pneumococcal Vaccine: 65+ (1 - PCV) [facility] Start: 1942 PNEUMOCOCCAL: 65+ (1 - PCV) PNEUMOCOCCAL: 65+ (1 - PCV) [facility] CARDIAC REHAB II OUT PT ([place], [place]) CARDIAC REHAB II OUTPT ([place], [place]) BIC Routine Stenosis of prosthetic mitral valve, 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) Ordered: 12/31/2021 [facility] Work Phone: Comment on above: Ordered: 12/31/2021 End: 06-19-2024 Ct heart contrast eval cardiac structure&morph CT CARDIAC W IVCON Radiology Routine Encounter for preprocedural cardiovascular examination Nonrheumatic tricuspid valve regurgitation Chronic right-sided heart failure (HCC) IGLESIAS (dyspnea on exertion) Atrial fibrillation, chronic (HCC) 1 Occurrences starting 05/21/2023 until 06/19/2024 [facility] Work Phone: Comment on above: 1 Occurrences starti ng 05/21/2023 until 06/19/2024 End: 12-12-2022 ECG COMPLETE ECG COMPLETE ECG Routine S/P transcatheter mitral valve replacement (TMVR) 1 Occurrences starting 12/12/2021 until 12/12/2022 [facility] Work Phone: Comment on above: 1 Occurrences starti ng 12/12/2021 until 12/12/2022 End: 05-21-2024 ECG COMPLETE ECG COMPLETE ECG Routine Encounter for preprocedural cardiovascular examination Nonrheumatic tricuspid valve regurgitation Chronic right-sided heart failure (HCC) IGLESIAS (dyspnea on exertion) Atrial fibrillation, chronic (HCC) 1 Occurrences starting 05/21/2023 until 05/21/2024 [facility] Work Phone: Comment on above: 1 Occurrences starti ng 05/21/2023 until 05/21/2024 End: 08-13-2024 ECG COMPLETE ECG COMPLETE ECG Routine Nonrheumatic tricuspid valve regurgitation Chronic diastolic heart failure (HCC) Permanent atrial fibrillation (HCC) 1 Occurrences starting 08/13/2023 until 08/13/2024 [facility] Work Phone: Comment on above: 1 Occurrences starti ng 08/13/2023 until 08/13/2024 End: 05-21-2024 ECHO TRANSESOPHAGEAL ECHO TRANSESOPHAGEAL Cardiology Routine Encounter for preprocedural cardiovascular examination Nonrheumatic tricuspid valve regurgitation Chronic right-sided heart failure (HCC) IGLESIAS (dyspnea on exertion) Atrial fibrillation, chronic (HCC) 1 Occurrences starting 05/21/2023 until 05/21/2024 [facility] Work Phone: Comment on above: 1 Occurrences starti ng 05/21/2023 until 05/21/2024 End: 12-12-2022 Echocardiography ECHO Cardiology Routine S/P transcatheter mitral valve replacement (TMVR) 1 Occurrences starting 12/12/2021 until 12/12/2022 [facility] Work Phone: Comment on above: 1 Occurrences starti ng 12/12/2021 until 12/12/2022 End: 02-07-2023 Echocardiography ECHO Cardiology Routine S/P transcatheter mitral valve replacement (TMVR) 1 Occurrences starting 02/07/2022 until 02/07/2023 [facility] Work Phone: Comment on above: 1 Occurrences starti ng 02/07/2022 until 02/07/2023 End: 11-20-2023 Echocardiography ECHO Cardiology Routine Mitral valve stenosis, rheumatic Chronic atrial fibrillation (HCC) Hx of maze procedure History of MVR with cardiopulmonary bypass Tricuspid valve insufficiency, unspecified etiology Pulmonary HTN (HCC) S/P MVR (mitral valve replacement) 1 Occurrences starting 11/19/2022 until 11/20/2023 [facility] Work Phone: Comment on above: 1 Occurrences starti ng 11/19/2022 until 11/20/2023 End: 05-21-2024 Echocardiography ECHO Cardiology Routine Encounter for preprocedural cardiovascular examination Nonrheumatic tricuspid valve regurgitation Chronic right-sided heart failure (HCC) IGLESIAS (dyspnea on exertion) Atrial fibrillation, chronic (HCC) 1 Occurrences starting 05/21/2023 until 05/21/2024 [facility] Work Phone: Comment on above: 1 Occurrences starti ng 05/21/2023 until 05/21/2024 End: 08-13-2024 Echocardiography ECHO Cardiology Routine Nonrheumatic tricuspid valve regurgitation Chronic diastolic heart failure (HCC) Permanent atrial fibrillation (HCC) 1 Occurrences starting 08/13/2023 until 08/13/2024 [facility] Work Phone: Comment on above: 1 Occurrences starti ng 08/13/2023 until 08/13/2024 Patient Education [facility] Work Phone: Patient referral [facility] Work Phone: End: 06-19-2024 Radiologic exam chest 2 views XR CHEST 2V FRONTAL/LAT Radiology Routine Encounter for preprocedural cardiovascular examination Nonrheumatic tricuspid valve regurgitation Chronic right-sided heart failure (HCC) IGLESIAS (dyspnea on exertion) Atrial fibrillation, chronic (HCC) 1 Occurrences starting 05/21/2023 until 06/19/2024 [facility] Work Phone: Comment on above: 1 Occurrences starti ng 05/21/2023 until 06/19/2024 [facility] Immunizations Immunization Date Immunization Notes Care Provider Suyapa cobb 05-22-2023 influenza, high dose seasonal, preservative-free Haresh Lino Other [facility] Other 05-22-2023 influenza virus vaccine, unspecified formulation DO Haresh Lino Work Phone: [facility] 06-10-2022 tetanus toxoid, redu jolanta diphtheria toxoid, and acellular pertussis vaccine, adsorbed Isael Van Wyck Other [facility] [employer] Other 06-10-2022 tetanus and diphther ia toxoids, adsorbed, preservative free, for adult use (5 Lf of tetanus toxoid and 2 Lf of diphtheria toxoid) Haresh Lino Other [facility] 05-28-2022 influenza virus vaccine, split virus (incl. purified surface antigen) Haresh Lino Other [facility] [employer] Other 05-28-2022 influenza virus vaccine, unspecified formulation Ed Barlow APRN.CNP Work Phone: [facility] 06-15-2021 influenza virus vaccine, split virus (incl. purified surface antigen) Haresh Lino Other [employer] Other 06-15-2021 influenza virus vaccine, unspecified formulation DO Haresh Lino Work Phone: [facility] 10-17-2020 COVID-19 Vaccine Moderna - Documentation Purposes Only Haresh Lino Other [facility] 05-30-2020 influenza virus vaccine, split virus (incl. purified surface antigen) Haresh Lino Other [facility] Other 05-30-2020 influenza virus vaccine, unspecified formulation DO Haresh Lino Work Phone: [facility] 06-08-2019 influenza virus vaccine, split virus (incl. purified surface antigen) Haresh Lino Other [facility] Other 06-08-2019 influenza virus vaccine, unspecified formulation DO Haresh Lino Work Phone: [facility] 05-25-2018 influenza virus vaccine, split virus (incl. purified surface antigen) Haresh Lino Other [facility] [employer] Other 05-25-2018 influenza virus vaccine, unspecified formulation DO Haresh [employer] Work Phone: [facility] 06-04-2017 influenza virus vaccine, split virus (incl. purified surface antigen) Haresh Lino Other [facility] Other 06-04-2017 influenza virus vaccine, unspecified formulation DO [employer] Work Phone: [facility] 06-17-2016 pneumococcal conjuga te vaccine, 13 valent Haresh Lino Other [facility] 05-28-2016 influenza virus vaccine, split virus (incl. purified surface antigen) Haresh Lino Other [place] [employer] Other 05-28-2016 influenza virus vaccine, unspecified formulation DO [employer] Work Phone: [facility] 05-25-2015 influenza virus vaccine, split virus (incl. purified surface antigen) Haresh Lino Other [facility] [employer] Other 05-25-2015 influenza virus vaccine, unspecified formulation DO [employer] Work Phone: [facility] 06-23-2013 tetanus and diphther ia toxoids, adsorbed, preservative free, for adult use (5 Lf of tetanus toxoid and 2 Lf of diphtheria toxoid) Haresh Lino Other [facility] 05-20-2012 tetanus and diphther ia toxoids, adsorbed, preservative free, for adult use (5 Lf of tetanus toxoid and 2 Lf of diphtheria toxoid) Haresh Lino Other [facility] 08-19-2007 pneumococcal polysaccharide vaccine, 23 valent Haresh Lino Other [facility] Payers Date Payer Category Payer Unknown AARP AARP [id number] 2022-Present [address] [place] [address] [id number] 2022 Self-pay [id number] 2020 Private Health Insurance [facility] AARP SUPPLEMENT [id number] 2020-Present [phone] [address] [place] [address] Indemnity [id number] 2020 Private Health Insurance [facility] AARP SUPPLEMENT [id number] 2020-Present [phone] [address] [place] [address] Indemnity [id number] 2001 Medicare MEDICARE MEDICAR E A AND B [id number] 2001-Present [phone] [place] [address] Medicare [id number] 2001 Medicare [id number] 1959 Medicare [id number] [id number] 1959 Unknown [id number] 1936 Unknown [id number] 2.16.840.1.223846.3.579.2 .593 1936 Unknown [id number] 2.16.840.1.181984.3.579.2 .593 1936 Unknown [id number] 2.16.840.1.273033.3.579.2 .593 1936 Unknown [id number] 2.16.840.1.372694.3.579.2 .593 1936 Unknown [id number] 2.16.840.1.044652.3.579.2 .593 1936 Unknown [id number] 2.16.840.1.025525.3.579.2 .593 1936 Unknown [id number] 2.16.840.1.332567.3.579.2 .593 1936 Unknown [id number] 2.16.840.1.297230.3.579.2 .593 1936 Unknown [id number] 2.16.840.1.639489.3.579.2 .593 1936 Unknown [id number] 2.16.840.1.290098.3.579.2 .593 1936 Unknown [id number] 2.16.840.1.312514.3.579.2 .593 1936 Unknown [id number] 2.16.840.1.462185.3.579.2 .593 1936 Unknown [id number] 2.16.840.1.848662.3.579.2 .593 1936 Unknown [id number] 2.16.840.1.574455.3.579.2 .1259 1936 Unknown [id number] 2.16.840.1.936155.3.579.2 .1259 1936 Unknown [id number] 2.16.840.1.023531.3.579.2 .1259 1936 Unknown [id number] 2.16.840.1.616752.3.579.2 .1259 1936 Unknown [id number] 2.16.840.1.173985.3.579.2 .1259 1936 Unknown [id number] 2.16.840.1.546225.3.579.2 .1259 1936 Unknown [id number] 2.16.840.1.174972.3.579.2 .1259 Medicare [id number] Unknown [id number] 2.16.840.1.816598.19 Unknown [place] [id number] Unknown [id number] 2.16.840.1.132564.3.579.2 .531 Unknown [id number] 2.16.840.1.912640.3.579.2 .531 Unknown [id number] 2.16.840.1.272056.3.579.2 .531 Unknown [id number] 2.16.840.1.780829.3.579.2 .531 Unknown [id number] 2.16.840.1.511709.3.579.2 .531 Unknown [id number] 2.16.840.1.295444.3.579.2 .531 Unknown [id number] 2.16.840.1.816460.3.579.2 .531 Social History Date Type Detail Facility Start: 11-29-2020 End: 03-08-2024 Tobacco smoking status Ex-smoker (finding) [facility] Start: 10-02-2022 End: 04-04-2023 Sex Assigned At Female [facility] End: 09-15-2000 History of tobacco use Current smoker [facility] Start: 11-02-2021 End: 10-02-2022 Cigarettes smoked current (pack per day) - Reported 1.5 [facility] Start: 11-02-2021 End: 08-06-2023 Tobacco use and exposure Smokeless tobacco non-user [facility] Start: 11-02-2021 End: 12-18-2023 Alcohol intake Current drinker of alcohol (finding) [facility] Start: 1935 Sex Assigned At Female [facility] Start: 12-01-2021 End: 03-11-2022 Exposure to SARS-CoV-2 (event) Not sure [facility] Tobacco smoking stat us NHIS Tobacco smoking consumption unknown [facility] End: 09-15-2000 History of tobacco use Cigarette Smoker [facility] National Score (1-10 0), lower number is lower risk 81 [facility] Start: 09-06-2021 Gender identity Identifies as female gender (finding) [facility] Start: 03-30-2023 Sexual orientation Choose not to disclose [facility] Start: 09-17-2023 Sexual orientation Heterosexual (finding) [facility] Start: 10-02-2023 End: 10-23-2023 Alcohol intake Lifetime non-drinker (finding) [facility] Start: 07-21-2023 Alcohol Comment caffeine intake: 2-3 cups per day [facility] Medical Equipment Procedure Code Equipment Code Equipment Origin al Text Equipment Identifier Dates Valve Nela 3 Commander Marina 26mm Aortic Transcatheter Ultra Low - [id number] Start: 12-12-2021 Goals Date Patient Goal Desired Activity /State Personal health goal Clinical Notes 05-31-2013 to 03-03-2024 Note Date & Type Note Facility 03-03-2024 Chief complaint+Reason for visit Narrative Reason for Visit Chronic atrial fibrillation ASHD (arteriosclerotic heart disease) Chronic heart failure with preserved ejection fraction (HFpEF) Acute bronchitis due to other specified organisms Chronic atrial fibrillation Chronic atrial fibrillation Chronic atrial fibrillation Chronic venous insufficiency Diverticul disease small and large intestine, no perforati or abscess ASHD (arteriosclerotic heart disease) Chronic heart failure with preserved ejection fraction (HFpEF) Chronic venous insufficiency Obstructive sleep apnea (adult) (pediatric) Chronic atrial fibrillation [facility] Work Phone: 1(638) 775-389506-17-2024 Evaluation note* Author Gatito Rodriguez [facility] Authored March 01, 2024 3:09 pm Patient positive for constip ation, lower abdominal discomfort, bloating, bowel movements once or twice per week [facility] Work Phone: 1(689) 451-581106-17-2024 Chief complaint+Reason for visit Narrative * Chief Complaint 3 month follow up INR Follow Up see TE pre procedure Sinuses, Cough, Fever- [phone] INR Follow Up see TE INR Follow Up INR Follow Up Open Wound follow up colonoscopy Reason for Visit ASHD (arteriosclerot ic heart disease) Chronic heart failure with preserved ejection fraction (HFpEF) Chronic venous insufficiency Non-healing ulcer of lower leg Obstructive sleep apnea (adult) (pediatric) Chronic atrial fibrillation Chronic atrial fibrillation ASHD (arteriosclerotic heart disease) Chronic heart failure with preserved ejection fraction (HFpEF) Acute bronchitis due to other specified organisms Chronic atrial fibrillation Chronic atrial fibrillation Chronic atrial fibrillation Chronic venous insufficiency [facility] Work Phone: 1(516) 747-692806-05-2024 Chief complaint+Reason for visit Narrative * Chief Complaint INR Follow Up*See TE 3 month follow up INR Follow Up see TE pre procedure Sinuses, Cough, Fever- [phone] INR Follow Up see TE INR Follow Up Open Wound INR Follow Up Reason for Visit ASHD (arteriosclerot ic heart disease) Chronic heart failure with preserved ejection fraction (HFpEF) Chronic venous insufficiency Non-healing ulcer of lower leg Obstructive sleep apnea (adult) (pediatric) Chronic atrial fibrillation Chronic atrial fibrillation ASHD (arteriosclerotic heart disease) Chronic heart failure with preserved ejection fraction (HFpEF) Acute bronchitis due to other specified organisms Chronic atrial fibrillation Chronic atrial fibrillation Chronic venous insufficiency Chronic atrial fibrillation [facility] Work Phone: 1(931) 206-549804-10-2024 Chief complaint+Reason for visit Narrative * Chief Complaint atrial fib rectal bleeding Referral For Colonoscopy - Bowel Bleed INR Follow Up Post Procedure INR Follow Up Painless Rectal Bleeding Painless Rectal Bleeding INR Follow Up*See TE 3 month follow up Open Wound INR Follow Up see TE pre procedure Sinuses, Cough, Fever- [phone] INR Follow Up see TE Reason for Visit Lower GI bleeding ASHD (arteriosclerotic heart disease) Chronic heart failure with preserved ejection fraction (HFpEF) Chronic venous insufficiency Non-healing ulcer of lower leg Obstructive sleep apnea (adult) (pediatric) Chronic atrial fibrillation Chronic venous insufficiency Chronic atrial fibrillation ASHD (arteriosclerotic heart disease) Chronic heart failure with preserved ejection fraction (HFpEF) Acute bronchitis due to other specified organisms Chronic atrial fibrillation [facility] Work Phone: 1(718) 340-134304-04-2024 NoteHNO ID: [id number] Author: BEVERLY POLANCO MD Service: Cardiovascular Medicine Author Type: Fellow Type: Procedures Filed: 12/26/2023 16:13 Note Text: Attestation signed by Beverly Polanco MD at 12/26/2023 4:13 PM I was present during the entire procedure and participated in all steps. Beverly Polanco MD Interventional Cardiology Procedure Note Patient: Celia Chopra Procedure date: December 18, 2023 Attending: Beverly Polanco MD Interventional Fellow: Manuel Cadet MD HPI: Celia Chopra is a 88 year old female who presents for assessment of iatrogenic ASD closure in the setting of severe TR with RV dysfunction. She has a prior history of TMVR Daljit via transseptal route. Procedures Performed: Intracardiac echo with bubble study was performed revealing no evidence of residual shunt hence procedure was aborted. Access: 11 Fr R CFV; 9 Fr R CFV Hemostasis: Perclose x 1; Perclose x 1 Procedural Narrative: Vascular access was obtained as above under ultrasound and fluoroscopic guidance using Seldinger technique with micropuncture needle. Intracardiac echo was advanced to the right atrium with the following findings: LV: normal function RV: dilated, decreased function AV: calcified, mild to moderately restricted motion, 2+ AI MV: well seated S3 within valve functioning TV: 3-4+ TR PV: 2+ DC Atrial septum: small membrane overlying prior iatrogenic ASD Bubble study: negative As there was no residual shunt we aborted the procedure. All equipment was removed and hemostasis achieved as above. Plan: Echo before discharge today Bed rest 3 hours Transferred to telemetry bed in stable condition Same day discharge Complications: None Please do not hesitate to contact me with questions. Please page [phone] after 5PM and on weekends. Manuel Cadet MD Interventional Housing Assistant PGY8 December 18, 2023 11:40 [facility]04-01-2024 Chief complaint+Reason for visit Narrative* Chief Complaint Wound Check atrial fib rectal bleeding Referral For Colonoscopy - Bowel Bleed INR Follow Up Post Procedure INR Follow Up Painless Rectal Bleeding Painless Rectal Bleeding INR Follow Up*See TE 3 month follow up Open Wound INR Follow Up see TE pre procedure Sinuses, Cough, Fever- [phone] Reason for Visit Lower GI bleeding ASHD (arteriosclerotic heart disease) Chronic heart failure with preserved ejection fraction (HFpEF) Chronic venous insufficiency Non-healing ulcer of lower leg Obstructive sleep apnea (adult) (pediatric) Chronic atrial fibrillation Chronic venous insufficiency Chronic atrial fibrillation ASHD (arteriosclerotic heart disease) Chronic heart failure with preserved ejection fraction (HFpEF) Acute bronchitis due to other specified organisms [facility] Work Phone: 1(276) 903-272003-19-2024 Miscellaneous Notes* Telephone Encounter - Ed Barlow APRN.CNP - 12/02/2023 10:07 AM EDT Spoke with patient who states no active infection--not on any antibiotics. Instructed to stop warfarin 3 days prior to cath and to contact her warfarin clinic for further instructions. This plan has been communicated with the patient who verbalized understanding and is in agreement. Ed Barlow APRN.CNP * Telephone Encounter - Stephenie Trevino - 12/02/2023 9:53 AM EDT Patient called wanting to touch base. Pt has questions re procedure and wanted to inform you her wound hasn't closed yet but it is being treated. Pt asked for a call to discuss [phone] [facility] Miscellaneous Notes* Telephone Encounter - Shama Prescott - 10/23/2023 4:02 PM EST Patient called but there was no answer. Detailed VM left to call us back re ASD closure/ cath procedure Shama documented [facility] History of Present illness Narrative* Rony Smith MD - 10/23/2023 1:00 PM EST Skin Check Location: Patient requests a full body skin examination Dermatologic history: history of Melanoma Last visit: 3 months ago Melanoma History Location: left medial thigh Date of Melanoma dx: 04/22/2023 Melanoma details: Malignant Melanoma superficial spreading Breslow's depth: 0.4 mm Mitotic rate:0/mm squared Ulceration: not present Melanoma treatment: Referred for wide excision Rasta Romero MD Additional testing: none Follow up Diagnosis: rash unspecified, Ddx: contact dermatitis Location: lower lip Last visit: 08/26/2023 Symptoms: red, scaly Status: no change Treatments tried and failed: TAC ointment, Nystatin cream Current treatment: Protopic 0.1% ointment bid, Vaseline bid Established patient All pertinent medical history, medications, and allergies were reviewed. General Exam: alert , oriented to person, place, and time , normal affect, well appearing Unaccompanied Areas not examined despite medical recommendation: Under socks Scalp, Examined , exam limited by hair Right leg Examined Head, Face Examined Left leg Examined Neck Examined Right foot Examined Chest Examined Left foot Examined Back Examined Buttocks Examined Abdomen Examined Digits,nails: Examined Right arm Examined Patient wearing nail danish, Denies dark streaks under finger nails Left arm Examined Lymphatics: Examined Hands Examined no cervical lymphadenopathy, no axillary lymphadenopathy, no inguinal lymphadenopathy 1. Seborrheic keratosis Torso - Posterior (Back) Stuck on verrucous, dwyer-brown papules and plaques. Patient was counseled regarding these benign growths. Removal is normally not necessary, but they may be removed if they are symptomatic or for cosmetic reasons. 2. Lentigines Torso - Posterior (Back) Scattered dwyer macules in sun-exposed areas. The patient was informed that lentigines are benign pigmented lesions that occur on sun-exposed andsun-damaged skin. No treatment is necessary. Recommended regular use of broad spectrum sunscreen SPF 30 or higher 3. Rash and other nonspecific skin eruption Mid Lower [place] Lip Scaly papules. No change since last visit. Recommended biopsy. Patient declines biopsy today as she wishes to wait until after upcoming heart procedure and colonoscopy. Continue Protopic 0.1% ointment bid, Vaseline bid Related Medications tacrolimus (Protopic) 0.1 % ointment Apply to affected areas on lips twice a day when flared 4. History of malignant melanoma of skin Left Thigh - Anterior No evidence of recurrence at melanoma scar. The patient was counseled that scars from excisional sites of melanoma should be monitored closely for recurrence. The patient was instructed to contact the office for any new, changing, or symptomatic moles. The patient was also instructed to contact the office for any new lesions that develop within or around the previous melanoma scar. 5. Epidermal inclusion cyst Left Upper Back Subcutaneous, mobile nodule with central punctum. Patient was counseled regarding cysts. Although benign, cysts often slowly enlarge and can occasionally become inflamed. Discussed the only way to definitively diagnose the lesion would be to have itremoved and tested. Discussed treatment options including observation vs. excision. Patient elected for observation. Notify office if lesion is enlarging or becomes symptomatic. Next Visit: 3 months documented in this encounterParkland Health [id number] Miscellaneous Notes* Telephone Encounter - Ed Barlow APRN.CNP - 10/20/2023 10:53 AM EST Spoke to the patient over the phone She is working to get a colonoscopy appointment. She will call the office to let me know when it isscheduled so that I can anticipate it. For now we will can the procedure and arrange once she has been cleared from a GI standpoint Ed Barlow APRN.CNP documented in this encounterT[facility]02-[facility]-2024 Miscellaneous Notes* Telephone Encounter - Regis Rajput APRN.CNP - 10/16/2023 3:45 PM EST Patient rescheduled from the office * Telephone Encounter - Elsy Romano HUC - 10/15/2023 10:36 AM EST Pt called back and would like to speak with Regis regarding why the procedure has been cancelled andwhen can she reschedule the procedure? She thought she just needed to be cleared by GI doctor doing her colonoscopy. She is requesting a call back kashmir please [phone] documented in this encounterT[facility]01-31-2024 Evaluation note* Encounter Date Diagnosis Assessment Notes Treatment Notes Treatment Clinical Notes Sep, Painless rectal blee isaac (ICD-10 - K62.5) Restart Warfarin Instructed to monitor for bleeding. Instructed to go to ER for abdominal pain or further bleeding Recommend colonoscopy - will need to hold Warfarin for 5 days prior to procedure Sep, ASHD (arteriosclerot ic heart disease) (ICD-10 - I25.10) This patient is stable without activity related CP, dyspnea or lightheadedness. They are instructed to continue exercise and AHA diet plan. Continue secondary prevention measures. Sep, Chronic heart failur e with preserved ejection fraction (HFpEF) (ICD-10 - I50.32) Sep, Chronic atrial fibrillation (ICD-10 - I48.20) Atrial fibrillation w/ rate control. Continue Metoprolol and restart Warfarin. Monitor for further bleeding. Sep, Obstructive sleep ap gee (adult) (pediatric) (ICD-10 - G47.33) This patient is aware of the benefits associated with LISA: With continued use, the patient reduces the risk for WI, CVA, HTN, cardiac dysrhythmias and sudden cardiac deaths.The patient is also aware of the association between LISA and morning headaches, daytime somnolence, fatigue and obesity, which also has been improved with continued use.The patient is compliant with treatment, wearing the equipment every night for greater than 4 hours.The patient is instructed to continue use of the CPAP for LISA treatment. 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 Surgery postponed due to rectal bleeding. Sep, Hypercholesterolemia (ICD-10 - E78.00) Instructed on diet and exercise with continued statin therapy.Discussed the beneficial effects of lowering cholesterol in reducing the risk for cerebrovascular and cardiovascular disease. Sep, Chronic anticoagulat ion (ICD-10 - Z79.01) Warfarin will increase severity of bleeding. Her INR was therapeutic and her Hgb was stable. Recommend continued monitoring of INR and for bleeding [facility] Other 01-30-2024 Hospital Discharge instructions Additional Instructions We recommended admission to the hospital for further evaluation of a possible GI bleed however you declined. Please follow-up with your primary doctor as soon as possible, call them first thing in the morning. Please hold off on taking your Coumadin until you are cleared by your primary doctor. Please return to the emergency department if you develop any worsening or concerning symptoms. If you change your mind and would like to be admitted for further workup please return to the emergency department as well.[facility] Work Phone: 1(861) 746-113901-29-2024 Evaluation note* Encounter Date Diagnosis Assessment Notes Treatment Notes Treatment Clinical Notes Sep, Medication monitoring encounter (ICD-10 - Z51.81) Referring Provider: Haresh Lino (fax: [phone]) Diagnosis: Atrial Fibrillation INR Goal: 2.0-3.0 INR: 2.5 Warfarin Tablet Size: 2mg Friday: 2mg Friday: 4mg Friday: 2mg Friday: 4mg : 2mg Friday: 4mg Friday: 2mg Total Weekly Dose: 20mg Continue plan above. Follow up in 2 weeks. Patient presents today for pre procedure instructions for procedure 10/16. Patient required to hold warfarin for 3 days prior. Reviewed and provided procedure calendar to patient at appointment today. Patient reports having small spot/clot of bright red blood following bowel movements on about 5 occassions in the last week. Patient reports no other s/s of bleeding or increased bleeding. Advised patient to seek medical attention if this continues. Patient is following with wound care for wound on right leg. Patient reports that she is still experiencing pain in her leg. Patient prefers appointments to be scheduled with her , Lucas. Seen by Khalida Escobar, [facility] Other 01-18-2024 Evaluation note* Encounter Date Diagnosis Assessment Notes Treatment Notes Treatment Clinical Notes Sep, Medication monitoring encounter (ICD-10 - Z51.81) Referring Provider: Haresh Lino (fax: [phone]) Diagnosis: Atrial Fibrillation INR Goal: 2.0-3.0 INR: 2.6 Warfarin Tablet Size: 2mg Friday: 2mg Friday: 4mg Friday: 2mg Friday: 4mg : 2mg Friday: 4mg Friday: 2mg Total Weekly Dose: 20mg Continue plan above. Follow up in 2 weeks. This was the followup for her last procedure (09/24). Patient reports having another procedure on 09/25, which is when they resumed her warfarin. Additionally, patient will be having another heart procedure on October 16. Patient prefers appointments to be scheduled with her , Lucas. Seen by Zhanna Blair, Vesna Candidate/Siria Galloway PharmD [facility] Other 01-12-2024 NoteHNO ID: [id number] Author: ED BARLOW APRN.FILM HISTORIAN Service: ? Author Type: Nurse Practitioner Type: Progress Notes Filed: 09/30/2023 16:16 Note Text: Multidisciplinary Cardiac Team Review TRANSCATHETER MITRAL and TRICUSPID THERAPIES (TMTT) The below documentation is based on a mitral / tricuspid valve team discussion amongst the multidisciplinary team Attendees: Dr. Moreira, Dr. Oropeza, Dr Serrano, Dr Dunbar, Dr Abnre Martinez, Dr. Syed, , Dr Fiore. Dr. Mendoza, Dr Eason, Dr Geller, Kristan RN, Dr Martínez PATIENT NAME: Celia Chopra DATE: September 26, 2023 Presenting: Dr Polanco Reason: TR/triscend HF: Dr Ramos CTS: Dr Baez Discussion / recommendations: After review and discussion of patient presentation, the following thoughts / recommendations were made. Images reviewed offline by Dr Syed and Dr Polanco. TR is better she feels better. Might consider closing ASD Will defer TRISCEND at this time. Ed to review with Dr Polanco to confirm plan. This abstract and interpretation of the conversations amongst the mitral / tricuspid MDT members has been completed by: Ed Barlow APRN.FILM HISTORIAN Addendum 09/30/23 Reviewed MARLYN in person with Dr Polanco, plan to schedule for ASD closure in chemical lab supervisor 10/16. She should also sign consent to TRISCEND for an image review in the event TR remains severe or worsens. Spoke with Ms Chopra who agrees with the plan of care. Instructed her to stop her warfarin at least 2 days prior. Ed Barlow APRN.CNPCincinnati [facility]'S [facility]01-11-2024 NoteHNO ID: [id number] Author: ANNITA BAEZ MD Service: ? Author Type: Physician Type: Progress Notes Filed: 09/25/2023 13:00 Note Text: [facility] DEPARTMENT OF CARDIAC SURGERY OUTPATIENT VISIT DATE September 25, 2023 OUTPATIENT VISIT SERVICE DATE: 09/25/2023 SERVICE TIME: 12:55 PM PCP: Haresh Lino (Guillermina) [address] [place] [id number] Referring Physician: Beverly Polanco [facility] Kian Cox -[address] [facility] [address] Patient Type: New Visit to Determine Surgery: Yes HPI: Ms. Celia Chopra is a 88 year old female seen regarding candidacy for cardiac surgery. She is currently symptomatic and complains of dyspnea on exertion Comorbidities include PAST MEDICAL HISTORY Diagnosis Date Atrial fibrillation (HCC) Chronic kidney disease GERD (gastroesophageal reflux disease) Melanoma (HCC) Rheumatic fever Rheumatic mitral valve disease Sleep apnea Tricuspid regurgitation I have personally reviewed and analyzed all records that pertain to the patient's prior course in addition to the following studies: cardiac catheterization. Last CT Result Conclusion CT CARDIAC W IVCON Exam End: 09/23/2023 1:53 PM (Final result) Impression: IMPRESSION: - Severely dilated right ventricle with evidence of interventricular septal flattening during diastole, suggestive of RV volume overload. Dynamic 4D reconstruction of the tricuspid valve reveals mild leaflet billowing during systole with suspected coaptation gap. Tricuspid annular dimensions as per body of report. - Status post MVR without evidence of pannus or leaflet thickening. - Stable mild dilation of the aortic root (3.9 cm). The remainder of the thoracic aorta is normal in caliber with mild scattered calcific changes. [employer]: [facility] Transcribe Date/Time: Sep 23 2023 2:58P Dictated by : JANKI MARTINEZ MD This examination was interpreted and the report reviewed and electronically signed by: GINGER EVANS MD on Sep 23 2023 4:13PM EST Last ECHO Result Conclusion ECHO Collected: 09/23/2023 9:23 AM (Final result) Impression: CONCLUSIONS: - Technically difficult exam due to body habitus. - Exam indication: Tricuspid insufficiency - The left ventricle is normal in size. Left ventricular systolic function is normal. EF = 68 ? 5% (2D biplane) Left ventricular diastolic function was not evaluated due to mitral valve surgery. - The right ventricle is dilated. Right ventricular systolic function is moderately decreased. Prior RVSP was 63mmHg. - The left atrial cavity is mildly dilated. - The right atrial cavity is dilated. - Post mitral valve replacement. Marina Nela prosthetic mitral valve (size #26). There is trace mitral valve regurgitation. The peak gradient is 11 mmHg and the mean gradient is 4 mmHg. Prior peak and mean gradients were 15/5mmHg. Mobile echodensity seen in the LVOT, seen on prior echoes. - There is moderately severe (3+) tricuspid valve regurgitation. - - Estimated right ventricular systolic pressure is 56 mmHg consistent with moderate pulmonary hypertension. Estimated right atrial pressure is 15 mmHg based on IVC assessment. Reported gradients are averaged d/t AF. - Exam was compared with the prior echocardiographic exam performed on 08/13/2023.MV: Prior peak and mean gradients were 20/10mmHg. * * * Final * * * Impression: 88 y/o F with PMH of MVR and Daljit MVR 2021, now presenting with moderately severe (3+) tricuspid valve regurgitation Plan: Given her age and co-morbidities, it's reasonable to evaluate her for trans-catheter therapies for the TR Based on my evaluation she is a high risk for cardiac surgery. Annita Baez, [facility]01-09-2024 NoteHNO ID: [id number] Author: JOHANNY CHAMBERS RT(R) Service: Radiology Author Type: Technologist Type: Progress Notes Filed: 09/23/2023 13:50 Note Text: Radiology Service Progress Note PATIENT NAME: Celia Chopra DATE OF SERVICE: September 23, 2023 TIME: 1:50 PM PATIENT IDENTITY VERIFICATION COMPLETED USING TWO (2) IDENTIFIERS: Name and Date of confirmed by patient verbally and Name and Date of confirmed by identification band. FALL SCREENING: Has the patient had 2 falls in the last year or 1 fall with injury or currently using an Ambulatory Assistive Device (Walker, Cane, Wheelchair, Crutches, etc.)? No PATIENT GENDER DATA: Female. status: : No status: NO. PATIENT RELEVANT IMPLANT DATA REVIEWED: Yes RADIOLOGY DEPARTMENT: CT; Exam(s) Completed: Cardiac PERIPHERAL IV DATA: Site assessment: Clean,Dry and Intact, Site disposition Left in for next appointment allergy SIGNED BY: RT Tatyana(R) September 23, 2023 1:50 [facility]01-09-2024 NoteHNO ID: [id number] Author: MANDEEP KIRKPATRICK RN Service: ? Author Type: Registered Nurse Type: Progress Notes Filed: 09/23/2023 12:34 Note Text: Radiology Service Progress Note DATE OF SERVICE: September 23, 2023 TIME: 12:28 PM PATIENT WEIGHT: 150LBS PATIENT IDENTITY VERIFICATION COMPLETED USING TWO (2) STANDARD IDENTIFIERS: Name and Date of confirmed by patient verbally and Name and Date of confirmed by identification band. FALL SCREENING: Has the patient had 2 falls in the last year or 1 fall with injury or currently using an Ambulatory Assistive Device (Walker, Cane, Wheelchair, Crutches, etc.)? No PATIENT GENDER DATA: Female. status: : No status: NO. ALLERGIES: Reviewed and unchanged CONTRAST ALLERGY: Yes STANDARD PREMEDICATION: Prednisone 50mg Dose 1 taken at 0000, Dose 2 at 0900, and Dose 3 at 1200 Benadryl 50mg 1200 ALTERNATIVE PREMEDICATION: N/a EXAM: CT -CONTRAST INDUCED NEPHROPATHY RISK FACTORS: Patient age > 60 years, Known Chronic Kidney Disease (CKD), and Congestive Heart Failure (CHF) CREATININE: Creatinine Date Value Ref Range Status 08/13/2023 1.13 (H) 0.58 - 0.96 mg/dL Final 08/06/2023 0.95 0.58 - 0.96 mg/dL Final 12/13/2021 1.14 (H) 0.58 - 0.96 mg/dL Final Estimated Glomerular Filtration Rate Date Value Ref Range Status 08/13/2023 47 (L) >=60 mL/min/1.73m? Final Comment: Estimated Glomerular Filtration Rate (eGFR) is calculated using the 2020 CKD-EPI creatinine equation. This equation utilizes serum creatinine, sex, and age as parameters. The creatinine assay has traceable calibration to isotope dilution-mass spectrometry. Refer to KDIGO guidelines for clinical interpretation. In patients with unstable renal function, e.g. those with acute kidney injury, the eGFR may not accurately reflect actual GFR. eGFR- Date Value Ref Range Status 11/02/2021 >60 Final P.O.C.T. RESULTS: N/A September 23, 2023 TREATMENT: No Hydration needed. IV SITE: Ambulatory: A peripheral IV was started in the Right antecubital site with a Angio cath: 20 gauge. and A Saline lock was inserted per protocol IV SITE APPEARANCE: Clean,Dry and Intact SIGNATURE: Mandeep Kirkpatrick RN PATIENT NAME: Celia Chopra DATE: September 23, 2023 TIME: 12:28 [facility]01-09-2024 NoteHNO ID: [id number] Author: ED BARLOW APRN.FILM HISTORIAN Service: ? Author Type: Nurse Practitioner Type: Progress Notes Filed: 09/23/2023 11:25 Note Text: [facility] Department of Cardiovascular Medicine SECTION OF INTERVENTIONAL CARDIOLOGY OUTPATIENT VISIT DATE September 23, 2023 OUTPATIENT VISIT TYPE ESTABLISHED FOLLOW UP Primary Product Development Actuary: Beverly Polanco MD Primary Care Physician: Haresh Lino DO Chief Complaint: Patient here for cardiac follow up evaluation History of Present Illness: Patient is a 88 year old female who presents for follow up an evaluation related to transcatheter tricuspid valve therapies. Last Visit : 08/03/23 2+ BLE edema and complaints of ABD distension despite temporary increase in bumex. Last OPD visit with Dr. Collin: She has very significant tricuspid regurgitation. We talked about doing percutaneous tricuspid valve replacement. I looked at her prior CT and the annulus is larger than allowed for tricuspid valve replacement but it is possible that the remodeling of the annulus may have happened after the MVR just enough for tricuspid valve replacement. Seen by Dr. Ramos in HF, started MRA 08/08, increased bumex temporarily. Was supposed to have labs checked. PLAN: Given BLE edema ABD bloating, recent med changes, prior unfavorable annular measurements, would favor waiting until beginning of Sep for all testing. Agree with Dr. Ramos's med recommendations and will contact him regarding whether he wants to make changes. Labs today to check renal function. Will call if we plan to change medication based on labs. Plan for return for testing in the beginning of Sep. I will coordinate with schedulers to arrange. Provided the SAM ROMÁN Consent for review. LLE traumatic leg wound Finished doxycycline and started cephalexin .01.06 No fevers chills no pain or purulent drainage SUBJECTIVE: ROS: OBJECTIVE: CARDIOVASCULAR MEDICINE TESTING: Echo: 04/04/23 CONCLUSIONS: - Exam indication: S/p TMVR - The left ventricle is normal in size. There is mild concentric left ventricular hypertrophy. Left ventricular systolic function is normal. EF = 61 ? 5% (2D 4-ch.) - The right ventricle is dilated. Right ventricular systolic function is mildly decreased. - The left atrial cavity is severely dilated. - The right atrial cavity is severely dilated. - Post mitral valve replacement. Marina Nela 3 prosthetic mitral valve (size #26). There is trace mitral valve regurgitation. The peak gradient is 15 mmHg and the mean gradient is 5 mmHg. Prior Pk/Mn gradients of 14/4 mmHg. Today's gradients averaged due to Afib. Small stable modbile echodensity in LVOT. - There is severe (4+) tricuspid valve regurgitation caused by annular dilatation. - There is moderate (2+ - 3+) pulmonic valve regurgitation. - Estimated right ventricular systolic pressure is 56 mmHg consistent with moderate pulmonary hypertension (but may be underestimated due to severe TR). Estimated right atrial pressure is 8 mmHg based on IVC assessment. Prior RVSP 67 mmHg. - Exam was compared with the prior echocardiographic exam performed on 02/07/2022. No significant change. [facility]: 11/05/22 DIAGNOSTIC FINDINGS + + Coronary Anatomy: Right Dominant Injection Site(s): Right Coronary Artery, Left Main Coronary Artery and Coronary Artery LMT: _ The LMT has mild luminal irregularities. LAD: _ The LAD has mild diffuse disease. Additional Comment: large caliber, wraps the apex. D1 is a moderate size vessel that is occluded proximally and fills retrograde from LAD collaterals. LCX: _ The Circumflex has mild diffuse disease. RAMUS: _ The Ramus is Absent. RCA: _ The RCA has mild diffuse disease. GRAFTS: _ Radial Graft End to Side to the Distal LAD . Additional Comments - occluded. + + HEMODYNAMICS + + General: RA Mean 27.00 RV 81.00/25.00 PA 88.00/32.00 (53.00) PCWP A Wave 36.00 PCWP V Wave 59.00 PCWP Mean 42.00 Cardiac Outputs: ARTEM CO 3.[address]: 11/07/22 IMPRESSION: 1. 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 2. Mild aortic stenosis with valve area 1.6 sq cm. 3. Dilated right atrium and right ventricle with moderate systolic dysfunction. 4. Pulmonary nodules Incidental Finding: Follow-up for this incidentally detected lung nodule with a chest CT exam is recommended in 6-12 months. If stable on follow-up imaging, a repeat chest CT exam in 12 months (18-24 months from the initial exam) is recommended. I have personally reviewed the above testing. Physical Examination: BP 142/77 Pulse 80 Temp 36.3 ?C (97.4 ?F) Ht 167.6 cm (5' 6 ) Wt 67.6 kg (149 lb) SpO2 95% BMI 24.05 kg/m? General: No acute distress, pleasant mood and cooperative; ambulates without assistive devices (more content not included)...[facility] 09-19-2023 Evaluation note* Encounter Date Diagnosis Assessment Notes Treatment Notes Treatment Clinical Notes Sep, Ulcer of left lower extremity, limited to breakdown of skin (ICD-10 - L97.921) Cleanse w/ soap and water. Apply Mupirocin bid Restart Cephexin to prevent worsening cellulitis Refer to wound clinic for debridement Sep, Chronic venous insufficiency (ICD-10 - I87.2) Avoid salt and elevate lower extremities, support stockings, inspect legs and feet daily for blisters and ulcerations. Sep, Chronic anticoagulation (ICD-10 - Z79.01) Increase risk of bleeding. [facility] Other 01-04-2024 Evaluation note* Encounter Date Diagnosis Assessment Notes Treatment Notes Treatment Clinical Notes Sep, Medication monitoring encounter (ICD-10 - Z51.81) Referring Provider: Haresh Lino (fax: [phone]) Diagnosis: Atrial Fibrillation INR Goal: 2.0-3.0 INR: 3.9 Warfarin Tablet Size: 2mg Friday: 2mg Friday: 4mg Friday: 2mg Friday: 4mg : 2mg Friday: 4mg Friday: 2mg Total Weekly Dose: 20mg Hold tomorrow, take 2mg on 09/19, then begin hold for cardiac cath 09/24. Follow up in 2 weeks. Patient was instructed to hold warfarin for 3 days prior to procedure. Will begin hold 1 day early considering supratherapeutic INR today. Patient started 5 day course of doxycycline 100mg twice daily 09/12 for leg infection that did not heal following 7 day course of cephalexin. Patient was unable to reach [facility] until 09/16 to report new antibiotic due to the holiday. Patient stated that her doctor instructed her to take an extra warfarin tablet Wednesday 09/12 if she was unable to contact the [facility]. Patient did and then was concerned about taking too much warfarin. Patient reported reducing Sat 09/13 and Sun 09/14 doses by 2mg each. Patient states that her leg is still red and painful. Patient continues to take 1000mg Tylenol at least once daily. Procedure calendar was reviewed and provided to patient today. Patient verbalizes understanding. Patient prefers appointments to be scheduled with her , Lucas. Seen by Khalida Escobar [facility] Other 12-27-2023 Evaluation note* Encounter Date Diagnosis Assessment Notes Treatment Notes Treatment Clinical Notes Aug, Medication monitoring encounter (ICD-10 - Z51.81) Referring Provider: Haresh Lino (fax: [phone]) Diagnosis: Atrial Fibrillation INR Goal: 2.0-3.0 INR: 3.4 Warfarin Tablet Size: 2mg Friday: 4mg Friday: 2mg Friday: 4mg Friday: 2mg : 4mg Friday: 2mg Friday: 4mg Total Weekly Dose: 22mg Reduce to 2mg tomorrow, then continue plan above. Follow up in 1 week. Patient finished 7 day course of cephalexin today for leg infection. Patient states that her leg is red and is painful. Patient has been taking 1000mg Tylenol at least once daily since last appointment. Clinical decision to maintain current TWD at this time infection/pain may a factor in the elevated INR. Will continue to monitor. Patient TWD was decreased by 8% ~ 1 month ago. Patient reports following new plan above since that time. Patient has cardiac cath 09/24 for which she is required to hold warfarin for 3 days prior. Patient is scheduled for pre procedure appointment on 09/18. Patient prefers appointments to be scheduled with her , Lucas. Seen by Khalida Escobar [facility] Other 12-19-2023 Evaluation note* Encounter Date Diagnosis Assessment Notes Treatment Notes Treatment Clinical Notes Aug, ASHD (arteriosclerotic heart disease) (ICD-10 - I25.10) This patient is stable without activity related CP, dyspnea or lightheadedness. They are instructed to continue exercise and AHA diet plan. Continue secondary prevention measures. Aug, Chronic atrial fibrillation (ICD-10 - I48.20) This patient is in NSR or rate controlled. This patient is anticoagulated to prevent thromboembolic events. They are maintaining regular scheduled appts with their kiln setter. No bleeding complications Aug, Essential hypertension (ICD-10 - I10) This patient is instructed to consume a healthy, low-fat, low-salt diet. They are also encouraged to continue exercise to achieve/maintain a normal BMI. Aug, Obstructive sleep apnea (adult) (pediatric) (ICD-10 - G47.33) This patient is aware of the benefits associated with LISA: With continued use, the patient reduces the risk for WI, CVA, HTN, cardiac dysrhythmias and sudden cardiac deaths.The patient is also aware of the association between LISA and morning headaches, daytime somnolence, fatigue and obesity, which also has been improved with continued use.The patient is compliant with treatment, wearing the equipment every night for greater than 4 hours.The patient is instructed to continue use of the CPAP for LISA treatment. Aug, Nonrheumatic tricuspid valve regurgitation (ICD-10 - I36.1) Contemplating TTVR Testing for 3 days scheduled for October 03 Jardiance added at last cardiology appt - weight down 5lbs but c/o increased abdominal girth and lower extremity edema Aug, Chronic venous insufficiency (ICD-10 - I87.2) Avoid salt and elevate lower extremities, support stockings, inspect legs and feet daily for blisters and ulcerations. Aug, Hyperlipidemia type II (ICD-10 - E78.01) Instructed on diet and exercise with continued statin therapy.Discussed the beneficial effects of lowering cholesterol in reducing the risk for cerebrovascular and cardiovascular disease. Aug, Cellulitis of left leg (ICD-10 - L03.116) Elevate, cleanse w/ soap and water. Begin Cephalexin and Mupirocin Aug, H/O mitral valve replacement (ICD-10 - Z95.2) Stable, f/u Cardiology Aug, Medicare annual wellness visit, subsequent (ICD-10 - Z00.00) Personalized health advice was given to the beneficiary including a written plan for screenings discussed and provided. Advanced care planning reviewed and/or information given as requested. Additional counseling was provided here today in regards to, [ ]. The above visit was performed by [ ], under direct supervision of [ ]. Document reviewed and amended by provider signed below. [facility] Other 12-18-2023 Evaluation note* Encounter Date Diagnosis Assessment Notes Treatment Notes Treatment Clinical Notes Aug, Medication monitoring encounter (ICD-10 - Z51.81) Referring Provider: Haresh Lion (fax: [phone]) Diagnosis: Atrial Fibrillation INR Goal: 2.0-3.0 INR: 4.2 Warfarin Tablet Size: 2mg Friday: 4mg Friday: 2mg Friday: 4mg Friday: 2mg : 4mg Friday: 2mg Friday: 4mg Total Weekly Dose: 22mg Hold today (09/01) and tomorrow (09/02) then continue plan above. Follow up in 2 weeks. Patient TWD was decreased by 8% at last appointment ~ 1 month ago. Patient reports following new plan above since that time. Patient states that she has taken Tylenol in the last week for pain, both of which could contribute to the supratherapeutic INR. Patient also reports swelling and possible infection of the left leg which she will have evaluated tomorrow by her provider. This could also be a factor in the supratherapeutic INR. Will evaluate for dose decrease at next follow up. Patient has cardiac cath 09/24 for which she is required to hold warfarin for 3 days prior. Patient is scheduled for pre procedure appointment on 09/18. Patient prefers appointments to be scheduled with her , Lucas. Seen by Khalida Escobar [facility] Other 11-30-2023 Miscellaneous Notes* Telephone Encounter - Shama Prescott - 08/14/2023 2:51 PM EST I spoke w the patient Pt. TTVR Eval rescheduled to 09/23, 09/24 and 09/25. Mailing appt reminder to pt. Singletary [facility] NoteHNO ID: [id number] Author: Ed Barlow APRN.FILM HISTORIAN Service: ? Author Type: Nurse Practitioner Type: Progress Notes Filed: 08/13/2023 3:56 PM Note Text: [facility] Department of Cardiovascular Medicine SECTION OF INTERVENTIONAL CARDIOLOGY OUTPATIENT VISIT DATE August 13, 2023 OUTPATIENT VISIT TYPE ESTABLISHED FOLLOW UP Primary Product Development Actuary: Beverly Polanco MD Primary Care Physician: Haresh Lino DO Chief Complaint: Patient here for cardiac follow up evaluation History of Present Illness: Patient is a 88 year old female who presents for follow up an evaluation related to transcatheter tricuspid valve therapies. SUBJECTIVE: [place] CARDIOMYOPATHY QUESTIONNAIRE (KCCQ-12) Activity: A. Showering/bathing: Extremely limited Quite a bit limited Moderately limited Slightly limited Not at all limited Limited for other reasons or did not do the activity B. Walking 1 block on level ground: Extremely limited Quite a bit limited Moderately limited Slightly limited Not at all limited Limited for other reasons or did not do the activity C.Hurrying or jogging (as if to catch a bus): Extremely limited Quite a bit limited Moderately limited Slightly limited Not at all limited Limited for other reasons or did not do the activity 2. Over the past 2 weeks, how many times did you have swelling in your feet, ankles or legs when you woke up in the morning? Every morning 3 or more times per week but not every day 1-2 times per week less than once a week never over the past 2 weeks 3. Over the past 2 weeks, on average, how many times did you has fatigue limited your ability to do what you wanted? All of the time Several times per day At least once per day 3 or more times per week but not every day 1-2 times per week less than once a week never over the past 2 weeks 4. Over the past 2 weeks, on average, how many times has shortness of breath limited your ability to do what you wanted? All of the time Several times per day At least once per day 3 or more times per week but not every day 1-2 times per week less than once a week never over the past 2 weeks 5. Over the past 2 weeks, on average, how many times have your been forced to sleep sitting up in a chair or with at least 3 pillows to prop you up because of shortness of breath? Every night 3 or more times per week but not every day 1-2 times per week less than once a week never over the past 2 weeks 6. Over the past 2 weeks, how much has your heart failure limited your enjoyment of life? It has extremely limited my enjoyment of life it has limited my enjoyment of life quite a bit it has moderately limited my enjoyment of life It has slightly limited my enjoyment of life It has not limited my enjoyment of life at all 7. If you had to spend the rest of your life with your heart failure the way it is right now, how would you feel about this? Not at all satisfied Mostly dissatisfied Somewhat satisfied Mostly satisfied Completely satisfied 8. How much does your heart failure affect your lifestyle? Please indicated how your heart failure may have limited your participation in the following activities over the past 2 weeks? A. Hobbies, recreational activities Severely limited Limited quite a bit Moderately limited Slightly limited Did not limit at all Does not apply or did not do for other reasons. 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 C. Visiting family or friends out of your home Severely limited Limited quite a bit Moderately limited Slightly limited Did not limit at all Does not apply or did not do for other reasons. ROS: POSITIVES IN BOLD PAIN ASSESSMENT: complaints of acute or chronic pain GENERAL: fevers, chills, night sweats, weight gain or loss HEENT: changes in vision, hearing, nose bleeds, or bleeding gums NECK: neck pain, stiffness, or swelling, or swollen lymph nodes RESPIRATORY: shortness of breath, IGLESIAS, cough, wheezing, or hemoptysis CARDIOVASCULAR: chest pain, palpitations, claudication, orthopnea, or edema, ABD distension GI: difficulty swallowing, nausea, vomiting, diarrhea, constipation, or melena : frequency, urgency, or burning, and hematuria MUSCULOSKELETAL: joint pain, swelling, or stiffness SKIN: rashes, lesions, or tears PSYCH: sleep disturbance HEMATOLOGY/LYMPHOLOGY: prolonged bleeding or easy bruising NEURO: syncope, seizures, or numbness or tingling of hands or feet OBJECTIVE: CARDIOVASCULAR MEDICINE TESTING: Echo: 04/04/23 CONCLUSIONS: - Exam indication: S/p TMVR - The left ventricle is normal in size. There is mild concentric left ventricular hypertrophy. Left ventricular systolic funct (more content not included)... [facility]11-29-2023 Instructions* Patient Instructions* Ed Barlow, EVI.FILM HISTORIAN - 08/13/2023 12:06 PM EST Agree with Dr. Ramos's med recommendations. Give 30 days of GDMT (guideline directed medication therapy), just start MRA on 08/08. Labs today to check renal function. Will call if we plan to change medication based on labs. Plan for return for testing in the beginning of Sep. I will coordinate with schedulers to arrange. Provide the [facility] Consent for review. I have spoken with the patient regarding the multidisciplinary evaluation process for transcathetertricuspid therapies for tricuspid regurgitation. I discussed the TRISCEND ([employer] transcatheter tricuspid replacement) trial in detail. We discussed the qualifying testing that would be needed, consent, enrollment. I explained there are no approved commercially available devices in the [place] for transcatheter tricuspid valve therapy. To have a procedure or receive a device patient must enroll in clinical trials. Once all necessary testing is completed, they will be assessed thoroughly during our remote TMTT meeting on Fridays. If a transcatheter procedure is recommended, they will be screened by our research team for device trials offered at the [facility]. Notification of meeting recommendation/screening is by phone and can take up to 2 weeks. If the team recommends a transcatheter tricuspid procedure/Trial, they should expect to return to the [facility] for 1-3 visits prior to the procedure for consent to the trial or any updated necessary testing. Once the patient has consents, the trial sponsor reviews the imaging, they will determine if the patient is a candidate based on their anatomy 14 days prior to the proposed procedure date. Proceduresdates are dependent on sponsor and physician availability and can occur anytime from 1-3 months after our TMTT meeting team recommendation. PreOp Planning: Dental clearance: to be obtained We discussed pre-op planning which includes the need to come 1-2 days prior to the procedure to have the following: An updated history and physical exam with a provider in our office; pre-surgical labs/testing and meet with anesthesia. Some patient may even need to be directly admitted to the hospital 2-3 days before the procedure toensure they are medically optimized with intravenous diuretics. During and Directly After the Procedure: The duration of the procedure will last about 2-3 hours. Hospital stay following is generally 1-2 days afterwards. Activity restrictions following transcatheter valve procedure: Do not strain during bowel movements for 3 to 4 days after the procedure. This helps prevent bleeding from the catheter-insertion site. Do not lift anything that weighs more than 10 pounds or push or pull heavy objects for the first 10to 14 days after the procedure. Do not do any strenuous activities for 5 days after the procedure. This includes most sports, such as jogging, golfing, playing tennis and bowling. You may climb stairs if needed, but walk up and down the stairs more slowly than usual. Gradually increase your activity level during the week after the procedure, when you should be backto your normal routine. Do not have sexual intercourse. Ask your doctor when it is safe to resume sexual activity. Do not drive until you get the OK from your doctor. Ask your doctor at your follow-up visit about taking part in Stage II cardiac rehabilitation. Follow-up after the transcatheter valve replacement will be determined at the time of discharge or per study protocol. Cardiac Rehab is a supervised program designed for patients who have certain heart procedures. You will receive a referral prior to discharge so that you can start the outpatient cardiac rehab program 2-3 weeks after you leave the hospital. Cardiac rehab will help you get stronger so you can returnto your routine activities, teach you about lifestyle changes, and nutrition by education and exercise. Completing your cardiac rehab program can greatly help your recovery and greatly reduce your risk of future heart problems. For [facility] Card[facility] Rehab call [phone] to schedule after you are home from your procedure. If you do not receive your referral, please call your kiln setter's office for the order. [facility] in [facility] History of Present illness Narrative* Ed Barlow APRN.CNP - 08/13/2023 12:00 PM EST Images from the original note were not included. [facility] Department of Cardiovascular Medicine SECTION OF INTERVENTIONAL CARDIOLOGY OUTPATIENT VISIT DATE August 13, 2023 OUTPATIENT VISIT TYPE ESTABLISHED FOLLOW UP Primary Product Development Actuary: Beverly Polanco MD Primary Care Physician: Haresh Lino DO Chief Complaint: Patient here for cardiac follow up evaluation History of Present Illness: Patient is a 88 year old female who presents for follow up an evaluation related to transcatheter tricuspid valve therapies. SUBJECTIVE: [place] CARDIOMYOPATHY QUESTIONNAIRE (KCCQ-12) Activity: A. Showering/bathing: Extremely limited Quite a bit limited Moderately limited Slightly limited Not at all limited Limited for other reasons or did not do the activity B. Walking 1 block on level ground: Extremely limited Quite a bit limited Moderately limited Slightly limited Not at all limited Limited for other reasons or did not do the activity C.Hurrying or jogging (as if to catch a bus): Extremely limited Quite a bit limited Moderately limited Slightly limited Not at all limited Limited for other reasons or did not do the activity 2. Over the past 2 weeks, how many times did you have swelling in your feet, ankles or legs when you woke up in the morning? Every morning 3 or more times per week but not every day 1-2 times per week less than once a week never over the past 2 weeks 3. Over the past 2 weeks, on average, how many times did you has fatigue limited your ability to dowhat you wanted? All of the time Several times per day At least once per day 3 or more times per week but not every day 1-2 times per week less than once a week never over the past 2 weeks 4. Over the past 2 weeks, on average, how many times has shortness of breath limited your ability to do what you wanted? All of the time Several times per day At least once per day 3 or more times per week but not every day 1-2 times per week less than once a week never over the past 2 weeks 5. Over the past 2 weeks, on average, how many times have your been forced to sleep sitting up in achair or with at least 3 pillows to prop you up because of shortness of breath? Every night 3 or more times per week but not every day 1-2 times per week less than once a week never over the past 2 weeks 6. Over the past 2 weeks, how much has your heart failure limited your enjoyment of life? It has extremely limited my enjoyment of life it has limited my enjoyment of life quite a bit it has moderately limited my enjoyment of life It has slightly limited my enjoyment of life It has not limited my enjoyment of life at all 7. If you had to spend the rest of your life with your heart failure the way it is right now, how would you feel about this? Not at all satisfied Mostly dissatisfied Somewhat satisfied Mostly satisfied Completely satisfied 8. How much does your heart failure affect your lifestyle? Please indicated how your heart failure may have limited your participation in the following activities over the past 2 weeks? A. Hobbies, recreational activities Severely limited Limited quite a bit Moderately limited Slightly limited Did not limit at all Does not apply or did not do for other reasons. 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 C. Visiting family or friends out of your home Severely limited Limited quite a bit Moderately limited Slightly limited Did not limit at all Does not apply or did not do for other reasons. ROS: POSITIVES IN BOLD PAIN ASSESSMENT: complaints of acute or chronic pain GENERAL: fevers, chills, night sweats, weight gain or loss HEENT: changes in vision, hearing, nose bleeds, or bleeding gums NECK: neck pain, stiffness, or swelling, or swollen lymph nodes RESPIRATORY: shortness of breath, IGLESIAS, cough, wheezing, or hemoptysis CARDIOVASCULAR: chest pain, palpitations, claudication, orthopnea, or edema, ABD distension GI: difficulty swallowing, nausea, vomiting, diarrhea, constipation, or melena : frequency, urgency, or burning, and hematuria MUSCULOSKELETAL: joint pain, swelling, or stiffness SKIN: rashes, lesions, or tears PSYCH: sleep disturbance HEMATOLOGY/LYMPHOLOGY: prolonged bleeding or easy bruising NEURO: syncope, seizures, or numbness or tingling of hands or feet OBJECTIVE: CARDIOVASCULAR MEDICINE TESTING: Echo: 04/04/23 CONCLUSIONS: - Exam indication: S/p TMVR - The left ventricle is normal in size. There is mild concentric left ventricular hypertrophy. Left ventricular systolic function is normal. EF = 61 5% (2D 4-ch.) - The right ventricle is dilated. Right ventricular systolic function is mildly decreased. - The left atrial cavity is severely dilated. - The right atrial cavity is severely dilated. - Post mitral valve replacement. Marina Nela 3 prosthetic mitral valve (size #26). There is trace mitral valve regurgitation. The peak gradient is 15 mmHg and the mean gradient is 5 mmHg. Prior Pk/Mn gradients of 14/4 mmHg. Today's gradients averaged due to Afib. Small stable modbile echodensity in LVOT. - There is severe (4+) tricuspid valve regurgitation caused by annular dilatation. - There is moderate (2+ - 3+) pulmonic valve regurgitation. - Estimated right ventricular systolic pressure is 56 mmHg consistent with moderate pulmonary hypertension (but may be underestimated due to severe TR). Estimated right atrial pressure is 8 mmHg based on IVC assessment. Prior RVSP 67 mmHg. - Exam was compared with the prior echocardiographic exam performed on 02/07/2022. No significant change. [facility]: 11/05/22 DIAGNOSTIC FINDINGS + + Coronary Anatomy: Right Dominant Injection Site(s): Right Coronary Artery, Left Main Coronary Artery and Coronary Artery LMT: _ The LMT has mild luminal irregularities. LAD: _ The LAD has mild diffuse disease. Additional Comment: large caliber, wraps the apex. D1 is a moderate size vessel that is occluded proximally and fills retrograde from LAD collaterals. LCX: _ The Circumflex has mild diffuse disease. RAMUS: _ The Ramus is Absent. RCA: _ The RCA has mild diffuse disease. GRAFTS: _ Radial Graft End to Side to the Distal LAD . Additional Comments - occluded. + + HEMODYNAMICS + + General: RA Mean 27.00 RV 81.00/25.00 PA 88.00/32.00 (53.00) PCWP A Wave 36.00 PCWP V Wave 59.00 PCWP Mean 42.00 Cardiac Outputs: ARTEM CO 3.[address]: 11/07/22 IMPRESSION: 1. 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 2. Mild aortic stenosis with valve area 1.6 sq cm. 3. Dilated right atrium and right ventricle with moderate systolic dysfunction. 4. Pulmonary nodules Incidental Finding: Follow-up for this incidentally detected lung nodule with a chest CT exam is recommended in 6-12 months. If stable on follow-up imaging, a repeat chest CT exam in 12 months (18-24 months from the initial exam) is recommended. I have personally reviewed the above testing. Physical Examination: There were no vitals taken for this visit. General: No acute distress, pleasant mood and cooperative; ambulates without assistive devices Skin: warm, dry Neck: +JVD Lungs: Breath sounds clear throughout, no crackles or wheezing Heart: Regular rhythm, PMI not displaced, S1/S2 normal, no S3/S4, +murmur, 2+ BLE edema Abdomen: Soft nontedner, +BSx4 Extremities: Distal pulses intact, MAEx4 Musculoskeletal: No deformities Neurologic/Psychiatric: Oriented to time, place & person and no gross focal neurologic deficits HISTORY Celia Chopra is an 88 year old female with pmhx of: Severe tricuspid regurgitation TMVR valve in valve w/ Lampoon 12/12/21 Rheumatic fever, Prior MVR (CE #27)/MAZE 2011 single vessel CABG (left radial to the diagonal branch of the LAD) in 2013 at [place] Chronic AF (warfarin) CKD3 ASSESSMENT (I36.1) Nonrheumatic tricuspid valve regurgitation (primary encounter diagnosis) (I50.32) Chronic diastolic heart failure (HCC) 2+ BLE edema and complaints of ABD distension despite temporary increase in bumex. Last OPD visit with Dr. Polanco: She has very significant tricuspid regurgitation. We talked aboutdoing percutaneous tricuspid valve replacement. I looked at her prior CT and the annulus is larger than allowed for tricuspid valve replacement but it is possible that the remodeling of the annulus may have happened after the MVR just enough for tricuspid valve replacement. Seen by Dr. Ramos in HF, started MRA 08/08, increased bumex temporarily. Was supposed to have labschecked. PLAN: Given BLE edema ABD bloating, recent med changes, prior unfavorable annular measurements, would favor waiting until beginning of Sep for all testing. Agree with Dr. Ramos's med recommendations and will contact him regarding whether he wants to make changes. Labs today to check renal function. Willcall if we plan to change medication based on labs. Plan for return for testing in the beginning of Sep. I will coordinate with schedulers to arrange. Provided the TRISCEND ROMÁN Consent for review. I have spoken with the patient regarding the multidisciplinary evaluation process for transcathetertricuspid therapies for tricuspid regurgitation. I discussed the TRISCEND ([place] transcatheter tricuspid replacement) trial in detail. We discussed the qualifying testing that would be needed, consent, enrollment. I explained there are no approved commercially available devices in the [place] for transcatheter tricuspid valve therapy. To have a procedure or receive a device patient must enroll in clinical trials. Once all necessary testing is completed, they will be assessed thoroughly during our remote TMTT meeting on Fridays. If a transcatheter procedure is recommended, they will be screened by our research team for device trials offered at the [facility]. Notification of meeting recommendation/screening is by phone and can take up to 2 weeks. If the team recommends a transcatheter tricuspid procedure/Trial, they should expect to return to the [facility] for 1-3 visits prior to the procedure for consent to the trial or any updated necessary testing. Once the patient has consents, the trial sponsor reviews the imaging, they will determine if the patient is a candidate based on their anatomy 14 days prior to the proposed procedure date. Proceduresdates are dependent on sponsor and physician availability and can occur anytime from 1-3 months after our TMTT meeting team recommendation. PreOp Planning: Dental clearance: to be obtained We discussed pre-op planning which includes the need to come 1-2 days prior to the procedure to have the following: An updated history and physical exam with a provider in our office; pre-surgical labs/testing and meet with anesthesia. Some patient may even need to be directly admitted to the hospital 2-3 days before the procedure toensure they are medically optimized with intravenous diuretics. During and Directly After the Procedure: The duration of the procedure will last about 2-3 hours. Hospital stay following is generally 1-2 days afterwards. Activity restrictions following transcatheter valve procedure: Do not strain during bowel movements for 3 to 4 days after the procedure. This helps prevent bleeding from the catheter-insertion site. Do not lift anything that weighs more than 10 pounds or push or pull heavy objects for the first 10to 14 days after the procedure. Do not do any strenuous activities for 5 days after the procedure. This includes most sports, such as jogging, golfing, playing tennis and bowling. You may climb stairs if needed, but walk up and down the stairs more slowly than usual. Gradually increase your activity level during the week after the procedure, when you should be backto your normal routine. Do not have sexual intercourse. Ask your doctor when it is safe to resume sexual activity. Do not drive until you get the OK from your doctor. Ask your doctor at your follow-up visit about taking part in Stage II cardiac rehabilitation. Follow-up after the transcatheter valve replacement will be determined at the time of discharge or per study protocol. Cardiac Rehab is a supervised program designed for patients who have certain heart procedures. You will receive a referral prior to discharge so that you can start the outpatient cardiac rehab program 2-3 weeks after you leave the hospital. Cardiac rehab will help you get stronger so you can returnto your routine activities, teach you about lifestyle changes, and nutrition by education and exercise. Completing your cardiac rehab program can greatly help your recovery and greatly reduce your risk of future heart problems. For [facility] Cardiac Rehab call [phone] to schedule after you are home from your procedure. If you do not receive your referral, please call your kiln setter's office for the order. I spent a total of 45 minutes on the date of the service which included preparing to see the patient, [id number] patient care, completing clinical documentation, performing a medically appropriate examination, counseling and educating the patient/family/caregiver, ordering medications, tests, or p rocedures, communicating results to the patient/family/caregiver, and care coordination (not separately reported). Ed Barlow APRN.JENNIFER documented in this [facility]11-[facility]-2023 NoteHNO ID: [id number] Author: uJstine Castillo RT(R) Service: Radiology Author Type: Technologist Type: Progress Notes Filed: 08/13/2023 9:17 AM Note Text: Radiology Service Progress Note PATIENT NAME: Celia Chopra DATE OF SERVICE: August 13, 2023 TIME: 9:16 AM PATIENT IDENTITY VERIFICATION COMPLETED USING TWO (2) IDENTIFIERS: Name and Date of confirmed by patient verbally. FALL SCREENING: Has the patient had 2 falls in the last year or 1 fall with injury or currently using an Ambulatory Assistive Device (Walker, Cane, Wheelchair, Crutches, etc.)? No PATIENT GENDER DATA: Female. status: : No status: NO. PATIENT RELEVANT IMPLANT DATA REVIEWED: Not Applicable RADIOLOGY DEPARTMENT: General X-ray: Exam(s) Completed: Chest X-Ray PERIPHERAL IV DATA: Not applicable SIGNED BY: RT Carter(Stephany) August 13, 2023 9:16 [facility]11-29-2023 History of Present illness Narrative* Justine Castillo RT(R) - 08/13/2023 9:30 AM EST Radiology Service Progress Note PATIENT NAME: Celia Chopra DATE OF SERVICE: August 13, 2023 TIME: 9:16 AM PATIENT IDENTITY VERIFICATION COMPLETED USING TWO (2) IDENTIFIERS: Name and Date of confirmedby patient verbally. FALL SCREENING: Has the patient had 2 falls in the last year or 1 fall with injury or currently using an Ambulatory Assistive Device (Walker, Cane, Wheelchair, Crutches, etc.)? No PATIENT GENDER DATA: Female. status: : No status: NO. PATIENT RELEVANT IMPLANT DATA REVIEWED: Not Applicable RADIOLOGY DEPARTMENT: General X-ray: Exam(s) Completed: Chest X-Ray PERIPHERAL IV DATA: Not applicable SIGNED BY: RT Carter(Stephany) August 13, 2023 9:16 AM documented in this encounterT[facility]11-22-2023 NoteHNO ID: [id number] Author: Esthela Ramos MD Service: ? Author Type: Physician Type: Progress Notes Filed: 08/06/2023 4:02 PM Note Text: Heart and Vascular [facility] SECTION OF HEART FAILURE and CARDIAC TRANSPLANT MEDICINE OUTPATIENT VISIT DATE August 06, 2023 OUTPATIENT VISIT TYPE Consultation PRIMARY CARE PHYSICIAN: Haresh Lino (Guillermina) [address] [place] [address] CHIEF COMPLAINT: Tricuspid regurgitation NURSING INTAKE (Patient?s concerns and/or recent hospitalizations/ER visits): Celia Chopra is a 88 year old female from [place], [place] referred by Ed Barlow APRN.CNP for cardiac evaluation of TR. 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 single vessel CABG (left radial to the diagonal branch of the LAD) in 2013 at [place] Chronic AF (warfarin) CKD3 HF Nursing Assessment: Interim Hospitalizations and/or ER visits: Chest Pain: No Skipping or irregular heartbeats: No Shortness of breath at rest: No Shortness of breath with activity: No Cough: No Waking up in the middle of the night gasping for air: No Lightheadedness or dizziness: No Feeling like you are going to pass out: Actually passing out: No Poor energy level: Yes Unintentional weight gain: No Unintentional weight loss: No Swelling in your legs,feet, abdomen: Yes, b/l lower extremities and abdomen Filling up quickly when you eat: No HISTORY OF PRESENT ILLNESS: Bumex 2 mg daily. Can run to the phone and not be short of breath. Can walk down the block and get short of breath. Uphill walks make her short of breath. Gardening this summer. Able to do chores around the house. Lives in [place]. Does collect fluid in belly and legs. No hospitalizations or ED visits for volume overload. Has gained 3 lbs in the last week. Primary Product Development Actuary is Dr. Polanco. Has not been on MRA or SGLT2i in the past. PAST MEDICAL HISTORY Diagnosis Date Atrial fibrillation (HCC) Chronic kidney disease Rheumatic fever Rheumatic mitral valve disease Tricuspid regurgitation PAST SURGICAL HISTORY Procedure Laterality Date PAST SURGICAL HISTORY OF 04/2013 CABGx1/MVR/MAZE TMVR 12/12/2021 SOCIAL HISTORY Social History Tobacco Use Smoking status: Former Packs/day: 1.50 Years: 47.00 Additional pack years: 0.00 Total pack years: 70.50 Types: Cigarettes Quit date: 2000 Years since quittin.9 Smokeless tobacco: Never Substance Use Topics Alcohol use: Yes Alcohol/week: 14.0 standard drinks of alcohol Types: 14 Glasses of Wine (5oz) per week Drug use: Never No family history on file. ALLERGIES: ALLERGIES Allergen Reactions Iodine Other: See Comments Per pt. was used at the dentist and she developed redness of face. This was quite awhile ago. Percodan [Oxycodone* Other: See Comments Per pt caused hallucinations. CURRENT MEDICATIONS: diphenhydrAMINE (BENADRYL) 50 mg capsuleTake 1 capsule by mouth as directed for 1 dose. one (1) hour prior to CT. Repeat again prior to cath.Disp: 2 capsuleRfl: 0 sodium chloride 0.9 %, flush, (BD POSIFLUSH) syringeInject 2-10 mL intravenously as directed. For Echo procedureDisp: 10 mLRfl: 0 potassium chloride ER (K-DUR, KLOR-CON) 10 mEq tabletTake 1 tablet by mouth once daily.Disp: Rfl: metoprolol tartrate, short acting, (LOPRESSOR) 50 mg tabletTake 1 tablet by mouth twice daily.Disp: Rfl: Docusate Sodium 250 mg capsuleTake 250 mg by mouth once daily.Disp: Rfl: atorvastatin (LIPITOR) 20 mg tabletTake 20 mg by mouth daily at bedtime.Disp: Rfl: bumetanide (BUMEX) 2 mg tabletTake 2 mg by mouth once daily.Disp: Rfl: warfarin (COUMADIN) 2 mg tabletDisp: Rfl: zolpidem (AMBIEN) 10 mgTake 10 mg by mouth daily at bedtime.Disp: Rfl: famotidine (PEPCID) 10 mg tabletTake 10 mg by mouth twice daily.Disp: Rfl: multivit-min/iron/folic/lutein (CENTRUM SILVER WOMEN ORAL)Take by mouth.Disp: Rfl: REVIEW OF SYSTEMS: CONSTITUTION: Positive for: Recent weight change Negative for: Fever and Night sweats HEENT: Negative for: Hearing loss RESPIRATORY: Positive for: Difficulty breathing Negative for: Cough GASTROINTESTINAL: Positive for: Abdominal distention Negative for: Melena, Nausea, Diarrhea and Early satiety MUSCULOSKELETAL: Negative for: Arthralgias and Myalgias NEUROLOGICAL: Negative for: Headaches and Dizziness SKIN: EYES: Positive for: Visual disturbance CARDIOVASCULAR: Negative for: Chest pain, Leg swelling and Pre-syncope GENITOURINARY: Negative for: Difficulty urinating all other systems reviewed and are negative PATIENT ENTERED DATA: No flowsheet data found. No flowsheet data found. No flowsheet data found. PHYSICAL EXAMINATION: BP 158/81 (BP Site: Left Arm, BP Position: Sitting) Pulse 77 Ht 167.6 cm (5' 6 ) Wt 7 (more content not included)...[facility] 08-06-2023 Instructions* Patient Instructions* Esthela Ramos MD - 08/06/2023 3:00 PM EST -start spironolactone 12.5 mg daily -PM dose of bumex at 1pm on 08/07 -continue work-up with Dr. Polanco -labs when you can documented in this encounterT[facility]11-22-2023 History of Present illness Narrative* Esthela Ramos MD - 08/06/2023 1:15 PM EST Images from the original note were not included. Heart and Vascular [facility] SECTION OF HEART FAILURE and CARDIAC TRANSPLANT MEDICINE OUTPATIENT VISIT DATE August 06, 2023 OUTPATIENT VISIT TYPE Consultation PRIMARY CARE PHYSICIAN: Haresh Lino (Guillermina) [address] [id number] CHIEF COMPLAINT: Tricuspid regurgitation NURSING INTAKE (Patient s concerns and/or recent hospitalizations/ER visits): Celia Chopra is a 88 year old female from [place], [place] referred by Ed Barlow APRN.CNP for cardiac evaluation of TR. 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 single vessel CABG (left radial to the diagonal branch of the LAD) in 2013 at [facility] AF (warfarin) CKD3 HF Nursing Assessment: Interim Hospitalizations and/or ER visits: Chest Pain: No Skipping or irregular heartbeats: No Shortness of breath at rest: No Shortness of breath with activity: No Cough: No Waking up in the middle of the night gasping for air: No Lightheadedness or dizziness: No Feeling like you are going to pass out: Actually passing out: No Poor energy level: Yes Unintentional weight gain: No Unintentional weight loss: No Swelling in your legs,feet, abdomen: Yes, b/l lower extremities and abdomen Filling up quickly when you eat: No HISTORY OF PRESENT ILLNESS: Bumex 2 mg daily. Can run to the phone and not be short of breath. Can walk down the block and get short of breath. Uphill walks make her short of breath. Gardening this summer. Able to do chores around the house. Lives in [place]. Does collect fluid in belly and legs. No hospitalizations or ED visits for volume overload. Has gained 3 lbs in the last week. Primary Product Development Actuary is Dr. Polanco. Has not been on MRA or SGLT2i in the past. PAST MEDICAL HISTORY Diagnosis Date Atrial fibrillation (HCC) Chronic kidney disease Rheumatic fever Rheumatic mitral valve disease Tricuspid regurgitation PAST SURGICAL HISTORY Procedure Laterality Date PAST SURGICAL HISTORY OF 04/2013 CABGx1/MVR/MAZE TMVR 12/12/2021 SOCIAL HISTORY Social History Tobacco Use Smoking status: Former Packs/day: 1.50 Years: 47.00 Additional pack years: 0.00 Total pack years: 70.50 Types: Cigarettes Quit date: 2000 Years since quittin.9 Smokeless tobacco: Never Substance Use Topics Alcohol use: Yes Alcohol/week: 14.0 standard drinks of alcohol Types: 14 Glasses of Wine (5oz) per week Drug use: Never No family history on file. ALLERGIES: ALLERGIES Allergen Reactions Iodine Other: See Comments Per pt. was used at the dentist and she developed redness of face. This was quite awhile ago. Percodan [Oxycodone* Other: See Comments Per pt caused hallucinations. CURRENT MEDICATIONS: diphenhydrAMINE (BENADRYL) 50 mg capsule^Take 1 capsule by mouth as directed for 1 dose. one (1) hour prior to CT. Repeat again prior to cath.^Disp: 2 capsule^Rfl: 0 sodium chloride 0.9 %, flush, (BD POSIFLUSH) syringe^Inject 2-10 mL intravenously as directed. For Echo procedure^Disp: 10 mL^Rfl: 0 potassium chloride ER (K-DUR, KLOR-CON) 10 mEq tablet^Take 1 tablet by mouth once daily.^Disp: ^Rfl: metoprolol tartrate, short acting, (LOPRESSOR) 50 mg tablet^Take 1 tablet by mouth twice daily.^Disp: ^Rfl: Docusate Sodium 250 mg capsule^Take 250 mg by mouth once daily.^Disp: ^Rfl: atorvastatin (LIPITOR) 20 mg tablet^Take 20 mg by mouth daily at bedtime.^Disp: ^Rfl: bumetanide (BUMEX) 2 mg tablet^Take 2 mg by mouth once daily.^Disp: ^Rfl: warfarin (COUMADIN) 2 mg tablet^^Disp: ^Rfl: zolpidem (AMBIEN) 10 mg^Take 10 mg by mouth daily at bedtime.^Disp: ^Rfl: famotidine (PEPCID) 10 mg tablet^Take 10 mg by mouth twice daily.^Disp: ^Rfl: multivit-min/iron/folic/lutein (CENTRUM SILVER WOMEN ORAL)^Take by mouth.^Disp: ^Rfl: REVIEW OF SYSTEMS: CONSTITUTION: Positive for: Recent weight change Negative for: Fever and Night sweats HEENT: Negative for: Hearing loss RESPIRATORY: Positive for: Difficulty breathing Negative for: Cough GASTROINTESTINAL: Positive for: Abdominal distention Negative for: Melena, Nausea, Diarrhea and Early satiety MUSCULOSKELETAL: Negative for: Arthralgias and Myalgias NEUROLOGICAL: Negative for: Headaches and Dizziness SKIN: EYES: Positive for: Visual disturbance CARDIOVASCULAR: Negative for: Chest pain, Leg swelling and Pre-syncope GENITOURINARY: Negative for: Difficulty urinating all other systems reviewed and are negative PATIENT ENTERED DATA: No flowsheet data found. No flowsheet data found. No flowsheet data found. PHYSICAL EXAMINATION: BP 158/81 (BP Site: Left Arm, BP Position: Sitting) Pulse 77 Ht 167.6 cm (5' 6 ) Wt 72.1 kg (159 lb) SpO2 98% BMI 25.66 kg/m General: Well appearing, in no acute distress. Skin: No clubbing, no cyanosis. Eyes: Extra ocular movements intact Oropharynx: Teeth in good repair. Neck: prominent v-waves Lungs: Clear to auscultation bilaterally, no wheezing or rhonchi. Heart: Regular rhythm, PMI not displaced, 2/6 EJ LUSB, JVP 9 cm + V-waves to 14 cm Abdomen: Soft, nontender, Extremities: 1+ edema . Neuro: Oriented to person, place and time, alert, cooperative, gait coordinated. CARDIOVASCULAR MEDICINE TESTING: I have personally reviewed the Electrocardiogram, Laboratory Testing, and Echocardiogram. Last ECHO Result Conclusion ECHO Collected: 04/04/2023 11:00 AM (Final result) Impression: CONCLUSIONS: - Exam indication: S/p TMVR - The left ventricle is normal in size. There is mild concentric left ventricular hypertrophy. Left ventricular systolic function is normal. EF = 61 5% (2D 4-ch.) - The right ventricle is dilated. Right ventricular systolic function is mildly decreased. - The left atrial cavity is severely dilated. - The right atrial cavity is severely dilated. - Post mitral valve replacement. Marina Nela 3 prosthetic mitral valve (size #26). There is trace mitral valve regurgitation. The peak gradient is 15 mmHg and the mean gradient is 5 mmHg. Prior Pk/Mn gradients of 14/4 mmHg. Today's gradients averaged due to Afib. Small stable modbile echodensity in LVOT. - There is severe (4+) tricuspid valve regurgitation caused by annular dilatation. - There is moderate (2+ - 3+) pulmonic valve regurgitation. - Estimated right ventricular systolic pressure is 56 mmHg consistent with moderate pulmonary hypertension (but may be underestimated due to severe TR). Estimated right atrial pressure is 8 mmHg based on IVC assessment. Prior RVSP 67 mmHg. - Exam was compared with the prior CC echocardiographic exam performed on 02/07/2022. No significant change. * * * Final * * * [facility]: 11/05/22 DIAGNOSTIC FINDINGS + + Coronary Anatomy: Right Dominant Injection Site(s): Right Coronary Artery, Left Main Coronary Artery and Coronary Artery LMT: _ The LMT has mild luminal irregularities. LAD: _ The LAD has mild diffuse disease. Additional Comment: large caliber, wraps the apex. D1 is a moderate size vessel that is occluded proximally and fills retrograde from LAD collaterals. LCX: _ The Circumflex has mild diffuse disease. RAMUS: _ The Ramus is Absent. RCA: _ The RCA has mild diffuse disease. GRAFTS: _ Radial Graft End to Side to the Distal LAD . Additional Comments - occluded. + + HEMODYNAMICS + + General: RA Mean 27.00 RV 81.00/25.00 PA 88.00/32.00 (53.00) PCWP A Wave 36.00 PCWP V Wave 59.00 PCWP Mean 42.00 Cardiac Outputs: ARTEM CO 3.[address]: 11/07/22 IMPRESSION: 1. 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 2. Mild aortic stenosis with valve area 1.6 sq cm. 3. Dilated right atrium and right ventricle with moderate systolic dysfunction. 4. Pulmonary nodules Incidental Finding: Follow-up for this incidentally detected lung nodule with a chest CT exam is recommended in 6-12 months. If stable on follow-up imaging, a repeat chest CT exam in 12 months (18-24 months from the initial exam) is recommended. IMPRESSION: 88 year old female from [place], [place] referred by Ed Barlow APRN.JENNIFER for cardiac evaluation of TR. 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 #single vessel CABG (left radial to the diagonal branch of the LAD) in 2013 at [place] #Chronic AF (warfarin) #CKD3a NYHA Functional Class: II Stage: C heart failure Target weight: 155 Etiology: valvular tricuspid, HFpEF PLAN AND RECOMMENDATIONS: -CMP, NTproBNP -continue tricuspid valve structural evaluation with R/LHC, MARLYN -start spironolactone 12.5 mg daily -PM bumex 2 mg next two days -consider stopping potassium -virtual visit in 1 month -consider adding jardiance pending labs repeat on 08/13 I personally interviewed, confirmed and edited the above information as obtained by others I personally spent 61 minutes in total time involved in the management and care of this patient. Wediscussed natural history of disease, current treatment options, and future potential treatment options. We discussed diet, exercise, other non-medical management as above. Esthela Ramos MD [facility] Section Of Heart Failure and Cardiac Transplant Medicine Heart and V[facility] Desk [id number] [place] [address] documented in this encounterTogus [facility] Center11-22-2023 Evaluation note* Diagnosis Permanent atrial fibrillation (HCC)- Primary Atrial fibrillation Stage 3a chronic kidney disease (HCC) Non-ischemic cardiomyopathy (HCC) Other primary cardiomyopathies Primary hypertension Unspecified essential hypertension Nonrheumatic tricuspid valve regurgitation Tricuspid valve disorders, specified as nonrheumatic Acute on chronic diastolic CHF (congestive heart failure) (HCC) Acute on chronic diastolic heart failure Nonrheumatic tricuspid valve regurgitation Tricuspid valve disorders, specified as nonrheumatic documented in this encounter [facility] Evaluation note* Encounter Date Diagnosis Assessment Notes Treatment Notes Treatment Clinical Notes Jun, ASHD (arteriosclerotic heart disease) (ICD-10 - I25.10) This patient is stable without activity related CP, dyspnea or lightheadedness. They are instructed to continue exercise and AHA diet plan. Continue secondary prevention measures. Jun, Chronic atrial fibrillation (ICD-10 - I48.20) This patient is in NSR or rate controlled. This patient is anticoagulated to prevent thromboembolic events. They are maintaining regular scheduled appts with their kiln setter. No bleeding complication Jun, Essential hypertension (ICD-10 - I10) This patient is instructed to consume a healthy, low-fat, low-salt diet. They are also encouraged to continue exercise to achieve/maintain a normal BMI. Jun, Obstructive sleep apnea (adult) (pediatric) (ICD-10 - G47.33) This patient is aware of the benefits associated with LISA: With continued use, the patient reduces the risk for WI, CVA, HTN, cardiac dysrhythmias and sudden cardiac deaths.The patient is also aware of the association between LSIA and morning headaches, daytime somnolence, fatigue and obesity, which also has been improved with continued use.The patient is compliant with treatment, wearing the equipment every night for greater than 4 hours.The patient is instructed to continue use of the CPAP for LISA treatment. Jun, Nonrheumatic tricuspid valve regurgitation (ICD-10 - I36.1) Planning on TV repair. Tolerating symptoms Jun, Chronic venous insufficiency (ICD-10 - I87.2) Avoid salt and elevate lower extremities, support stockings, inspect legs and feet daily for blisters and ulcerations. Jun, Hyperlipidemia type II (ICD-10 - E78.01) Instructed on diet and exercise with continued statin therapy.Discussed the beneficial effects of lowering cholesterol in reducing the risk for cerebrovascular and cardiovascular disease. Jun, H/O mitral valve replacement (ICD-10 - Z95.2) Successful surgery w/ significant improvement in dyspnea. f/u Cardiology Instructed on low salt diet and exercise [facility] Other 09-22-2023 Miscellaneous Notes* Telephone Encounter - Richar Garcia - 06/06/2023 2:05 PM EDT Spoke with pt to schedule TTVR workup Pt stated needs to be after Thanksgiving Agrees to dates of 08/13,08/20, and 08/27 Printed and sent appt info to pt via mail [facility]* Encounter Date Diagnosis Assessment Notes Treatment Notes Treatment Clinical Notes May, Medication monitoring encounter (ICD-10 - Z51.81) Referring Provider: Haresh Lino (fax: [phone]) Diagnosis: Atrial Fibrillation INR Goal: 2.0-3.0 INR: 2.1 Warfarin Tablet Size: 2mg Friday: 4mg Friday: 2mg Friday: 4mg Friday: 4mg : 4mg Friday: 2mg Friday: 4mg Total Weekly Dose: 24mg Continue current plan, follow up in 4 weeks. 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 Patient did not bridge with lovenox, but followed dosing calendar provided at last appointment (see TLA for details). She reports no missed or extra doses. She denies any unusual bruising or bleeding. Pt prefers appointments to be scheduled with her , Lucas. Seen by Marilynn Cullen, [place] [facility] Other 09-05-2023 Evaluation note* Encounter Date Diagnosis Assessment Notes Treatment Notes Treatment Clinical Notes May, Obstructive sleep apnea (adult) (pediatric) (ICD-10 - G47.33) She is using and does benefit from treatment. I suspect she may be taking the mask off as a sleep automaticity, related to her substantial dose of Ambien. I will try going to auto CPAP in hopes that improves toleration and reduces sleep without the machine. 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 Sleep hygiene issues discussed May, Chronic atrial fibrillation (ICD-10 - I48.20) Recurrence rates after cardioversion are nearly doubled in atrial fibrillation patients with untreated LISA, so controlling the patient''s sleep apnea could have positive effects. [facility] Other 08-18-2023 NoteHNO ID: [id number] Author: Ed Barlow APRN.JENNIFER Service: ? Author Type: Nurse Practitioner Type: Progress Notes Filed: 05/21/2023 4:26 PM Note Text: STRUCTURAL REVIEW FORM Pt. Name: Celia Chopra Records in [facility] have been reviewed. Severe TR. Request has been sent to the welding machine operator thermit who will arrange an appointment schedule. A transcatheter therapies packet and schedule will be mailed to patient's home address in ~ 2-4 weeks. PLEASE NOTE: Appointment schedule being sent to the patient will be for CONSULTATION AND TESTING.All studies will be reviewed by the multidisciplinary valve team members and any recommended transcatheter therapies will be schedule at a later date. 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 None noted A/C or known contraindication to AC: warfarin Relevant Testing Echo: 04/04/23 CONCLUSIONS: - Exam indication: S/p TMVR - The left ventricle is normal in size. There is mild concentric left ventricular hypertrophy. Left ventricular systolic function is normal. EF = 61 ? 5% (2D 4-ch.) - The right ventricle is dilated. Right ventricular systolic function is mildly decreased. - The left atrial cavity is severely dilated. - The right atrial cavity is severely dilated. - Post mitral valve replacement. Marina Nela 3 prosthetic mitral valve (size #26). There is trace mitral valve regurgitation. The peak gradient is 15 mmHg and the mean gradient is 5 mmHg. Prior Pk/Mn gradients of 14/4 mmHg. Today's gradients averaged due to Afib. Small stable modbile echodensity in LVOT. - There is severe (4+) tricuspid valve regurgitation caused by annular dilatation. - There is moderate (2+ - 3+) pulmonic valve regurgitation. - Estimated right ventricular systolic pressure is 56 mmHg consistent with moderate pulmonary hypertension (but may be underestimated due to severe TR). Estimated right atrial pressure is 8 mmHg based on IVC assessment. Prior RVSP 67 mmHg. - Exam was compared with the prior echocardiographic exam performed on 02/07/2022. No significant change. [facility]: 11/05/22 DIAGNOSTIC FINDINGS + + Coronary Anatomy: Right Dominant Injection Site(s): Right Coronary Artery, Left Main Coronary Artery and Coronary Artery LMT: _ The LMT has mild luminal irregularities. LAD: _ The LAD has mild diffuse disease. Additional Comment: large caliber, wraps the apex. D1 is a moderate size vessel that is occluded proximally and fills retrograde from LAD collaterals. LCX: _ The Circumflex has mild diffuse disease. RAMUS: _ The Ramus is Absent. RCA: _ The RCA has mild diffuse disease. GRAFTS: _ Radial Graft End to Side to the Distal LAD . Additional Comments - occluded. + + HEMODYNAMICS + + General: RA Mean 27.00 RV 81.00/25.00 PA 88.00/32.00 (53.00) PCWP A Wave 36.00 PCWP V Wave 59.00 PCWP Mean 42.00 Cardiac Outputs: ARTEM CO 3.[address]: 11/07/22 IMPRESSION: 1. 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 2. Mild aortic stenosis with valve area 1.6 sq cm. 3. Dilated right atrium and right ventricle with moderate systolic dysfunction. 4. Pulmonary nodules Incidental Finding: Follow-up for this incidentally detected lung nodule with a chest CT exam is recommended in 6-12 months. If stable on follow-up imaging, a repeat chest CT exam in 12 months (18-24 months from the initial exam) is recommended. Referred by: Dr. Polanco Diagnosis: Tricuspid Regurg / Triluminate (TV Clip)/ TTVR (TRISCEND) DAY ONE: After JUL 31 STRUCT[facility]VE CL[facility]IC The following testing on same day as appointment with physician: LAB/CXR/EKG ECHO desk J3-5 (in comments put Work-up TV Clip please do triluminate protocol--needs 90 minutes) CT Cardiac w IVCON DAY TWO: Please schedule left and right cardiac catheterization with an Legal Financial Specialist ONLY (Dr. Mendoza, Dr. Dejesus, Dr. Syed, Dr. Polanco, Dr. Real, Dr. Mcgowan, Dr. Fabian, Dr. Miles, Dr. Schumcaher, Dr. Colindres, Dr. Urias, and Dr. Alfredo) need contrast dye premedication DAY THREE: MARLYN Please schedule in-person visit with cardiac surgeon: Dr. Martínez or Dr. Hancock / Dr. Banks / Dr. Gonzales / Dr. Draper / Dr. Baez / Dr. Enriquez. Appt Note: STVR vs TTVR Eval Please communicate appointment schedule to patient / patient family member Please include dental clearance form with the appointment packe (more content not included)...[facility]08-18-[facility] History of Present illness Narrative* Ed Barlow, HOSPITAL CHIEF FINANCIAL OFFICER.FILM HISTORIAN - 05/02/2023 4:34 PM EDT STRUCTURAL REVIEW FORM Pt. Name: Celia Chopra Records in [facility] have been reviewed. Severe TR. Request has been sent to the welding machine operator thermit who will arrange an appointment schedule. A transcatheter therapies packet and schedule will be mailed to patient's home address in ~ 2-4 weeks. PLEASE NOTE: Appointment schedule being sent to the patient will be for CONSULTATION AND TESTING.All studies will be reviewed by the multidisciplinary valve team members and any recommended transcatheter therapies will be schedule at a later date. HISTORY Celia Chopra is an 88 year old female with pmhx of: Severe tricuspid regurgitation TMVR valve in valve w/ Lampoon 12/12/21 Rheumatic fever, Prior MVR (CE #27)/MAZE 2011 single vessel CABG (left radial to the diagonal branch of the LAD) in 2012 at [place] Chronic AF (warfarin) CKD3 GFR: 47 Contrast Allergy: yes Nickel Allergy: none noted Hx of Cirrhosis or esophageal varices: none noted Hx of amyloidosis (hard exclusion for TV Clip): none noted Hx of blood clotting or bleeding disorder? None noted A/C or known contraindication to AC: warfarin Relevant Testing Echo: 04/04/23 CONCLUSIONS: - Exam indication: S/p TMVR - The left ventricle is normal in size. There is mild concentric left ventricular hypertrophy. Left ventricular systolic function is normal. EF = 61 5% (2D 4-ch.) - The right ventricle is dilated. Right ventricular systolic function is mildly decreased. - The left atrial cavity is severely dilated. - The right atrial cavity is severely dilated. - Post mitral valve replacement. Marina Nela 3 prosthetic mitral valve (size #26). There is trace mitral valve regurgitation. The peak gradient is 15 mmHg and the mean gradient is 5 mmHg. Prior Pk/Mn gradients of 14/4 mmHg. Today's gradients averaged due to Afib. Small stable modbile echodensity in LVOT. - There is severe (4+) tricuspid valve regurgitation caused by annular dilatation. - There is moderate (2+ - 3+) pulmonic valve regurgitation. - Estimated right ventricular systolic pressure is 56 mmHg consistent with moderate pulmonary hypertension (but may be underestimated due to severe TR). Estimated right atrial pressure is 8 mmHg based on IVC assessment. Prior RVSP 67 mmHg. - Exam was compared with the prior CC echocardiographic exam performed on 02/07/2022. No significant change. [facility]: 11/05/22 DIAGNOSTIC FINDINGS + + Coronary Anatomy: Right Dominant Injection Site(s): Right Coronary Artery, Left Main Coronary Artery and Coronary Artery LMT: _ The LMT has mild luminal irregularities. LAD: _ The LAD has mild diffuse disease. Additional Comment: large caliber, wraps the apex. D1 is a moderate size vessel that is occluded proximally and fills retrograde from LAD collaterals. LCX: _ The Circumflex has mild diffuse disease. RAMUS: _ The Ramus is Absent. RCA: _ The RCA has mild diffuse disease. GRAFTS: _ Radial Graft End to Side to the Distal LAD . Additional Comments - occluded. + + HEMODYNAMICS + + General: RA Mean 27.00 RV 81.00/25.00 PA 88.00/32.00 (53.00) PCWP A Wave 36.00 PCWP V Wave 59.00 PCWP Mean 42.00 Cardiac Outputs: ARTEM CO 3.[address]: 11/07/22 IMPRESSION: 1. 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 2. Mild aortic stenosis with valve area 1.6 sq cm. 3. Dilated right atrium and right ventricle with moderate systolic dysfunction. 4. Pulmonary nodules Incidental Finding: Follow-up for this incidentally detected lung nodule with a chest CT exam is recommended in 6-12 months. If stable on follow-up imaging, a repeat chest CT exam in 12 months (18-24 months from the initial exam) is recommended. Referred by: Dr. Polanco Diagnosis: Tricuspid Regurg / Triluminate (TV Clip)/ TTVR (TRISCEND) DAY ONE: After JUL 31 STRUCTURAL VALVE CLINIC The following testing on same day as appointment with physician: LAB/CXR/EKG ECHO desk J3-5 (in comments put Work-up TV Clip please do triluminate protocol--needs 90 minutes) CT Cardiac w IVCON DAY TWO: Please schedule left and right cardiac catheterization with an Legal Financial Specialist ONLY (Dr. Mendoza, Dr. Dejesus, Dr. Syed, Dr. Polanco, Dr. Real, Dr. Mcgowan, Dr. Fabian, Dr. Miles,Dr. Schumacher, Dr. Colindres, Dr. Urias, and Dr. Alfredo) need contrast dye premedication DAY THREE: MARLYN Please schedule in-person visit with cardiac surgeon: Dr. Martínez or Dr. Hancock / Dr. Banks / Dr. Gonzales /Dr. Draper / Dr. Baez / Dr. Enriquez. Appt Note: STVR vs TTVR Eval Please communicate appointment schedule to patient / patient family member Please include dental clearance form with the appointment packet Thank You Ed Barlow APRN.JENNIFER [facility]* Encounter Date Diagnosis Assessment Notes Treatment Notes Treatment Clinical Notes Apr, Medication monitoring encounter (ICD-10 - Z51.81) Referring Provider: Haresh Lino (fax: [phone]) Diagnosis: Atrial Fibrillation INR Goal: 2.0-3.0 INR: 1.9 Warfarin Tablet Size: 2mg Friday: 4mg Friday: 2mg Friday: 4mg Friday: 4mg : 4mg Friday: 2mg Friday: 4mg Total Weekly Dose: 24mg Begin plan above, a 9% increase (smallest possible increase based on tablet size). Follow up in 3 weeks. Patient will be out of town in 2 weeks. Unable to determine cause of subtherapeutic INR. , Lucas, present at appointment. Seen by Khalida Escobar [facility] [employer] [facility] Other 08-03-2023 Miscellaneous Notes* Telephone Encounter - Anyi Cee - 04/17/2023 1:00 PM EDT Celia is calling Beverly Polanco MD today regarding procedure discussed at her 04/04/23 appointment. She has decided to go forward with the procedure and would ask provider what her next steps would be. Please call to advise. Patient has been identified by name and birthdate. Person calling: self Return call to: verified cell phone below Patient's phone: [phone] (home) [phone] (cell) Was an appointment scheduled: No Closing statement: Results or non-symptom based questions: Thank you for [facility], your call will be returned within the next business day. Anyi Cee [facility] Patient Operations Support Team (POST) Please note: Please do not re-route phone encounters back to this agent, please send to appropriateoffice pool. Agent works in operations center and cannot complete patient specific tasks. 5 documented in this [facility]07-[facility] Evaluation note* Encounter Date Diagnosis Assessment Notes Treatment Notes Treatment Clinical Notes Mar, ASHD (arteriosclerotic heart disease) (ICD-10 - I25.10) This patient is stable without activity related CP, dyspnea or lightheadedness. They are instructed to continue exercise and AHA diet plan. Mar, Chronic atrial fibrillation (ICD-10 - I48.20) This patient is in NSR or rate controlled. This patient is anticoagulated to prevent thromboembolic events. They are maintaining regular scheduled appts with their kiln setter. Mar, Essential hypertension (ICD-10 - I10) This patient is instructed to consume a healthy, low-fat, low-salt diet. They are also encouraged to continue exercise to achieve/maintain a normal BMI. Mar, Obstructive sleep apnea (adult) (pediatric) (ICD-10 - G47.33) This patient is aware of the benefits associated with LISA: With continued use, the patient reduces the risk for WI, CVA, HTN, cardiac dysrhythmias and sudden cardiac deaths.The patient is also aware of the association between LISA and morning headaches, daytime somnolence, fatigue and obesity, which also has been improved with continued use.The patient is compliant with treatment, wearing the equipment every night for greater than 4 hours.The patient is instructed to continue use of the CPAP for LISA treatment. Mar, Nonrheumatic tricuspid valve regurgitation (ICD-10 - I36.1) Severe TR Repeat Echo revealed no significant improvement from prior to repair of MS Discussed transarterial tricuspid valve repair If untreated, will lead to more rided sided failure, hepatic congestion, lower extremity swelling Mar, Chronic venous insufficiency (ICD-10 - I87.2) Avoid salt and elevate lower extremities, support stockings, inspect legs and feet daily for blisters and ulcerations. Mar, Hyperlipidemia type II (ICD-10 - E78.01) Instructed on diet and exercise with continued statin therapy.Discussed the beneficial effects of lowering cholesterol in reducing the risk for cerebrovascular and cardiovascular disease. Mar, H/O mitral valve replacement (ICD-10 - Z95.2) [facility] Other 07-21-2023 NoteHNO ID: [id number] Author: Beverly Polanco MD Service: ? Author Type: Physician Type: Progress Notes Filed: 04/05/2023 6:05 AM Note Text: Heart[facility] V[facility] [place] [facility] Department of Cardiovascular Medicine SECTION OF INTERVENTIONAL CARDIOLOGY OUTPATIENT VISIT DATE April 04, 2023 OUTPATIENT VISIT TYPE ESTABLISHED PRIMARY CARE PHYSICIAN: Haresh Lino (Tino) [address] [place] [address] REFERRING PHYSICIAN: No referring provider defined for this encounter. CHIEF COMPLAINT: No chief complaint on file. HISTORY OF PRESENT ILLNESS: Ms. Chopra is a 88 year old female who presents today for follow-up visit after mitral valve in valve about a year and a half ago. Initially she was really sick when we saw her. She was really compensated in almost cardiogenic shock. Now she is much better. She is able to do her daily activities and also remain socially active. She is also taking care of her . She occasionally gets tired and short of breath moderately heavy exertion. Her quality of life is reasonable. She does have significant tricuspid regurgitation. We had also not close the septum at the time of mitral valve placement because of fairly significant increase in the LA pressure. The flow through the septum does not. Quedari significant most recent echocardiogram. She has very significant tricuspid regurgitation. We talked about doing percutaneous tricuspid valve replacement. I looked at her prior CT and the annulus is larger than allowed for tricuspid valve replacement but it is possible that the remodeling of the annulus may have happened after the MVR just enough for tricuspid valve replacement. She denies chest pain, PND, palpitations, lightheadedness, syncope, claudication. She has 2+ leg edema. PAST CARDIAC HISTORY: See HPI PAST MEDICAL HISTORY Diagnosis Date Rheumatic fever Rheumatic mitral valve disease PAST SURGICAL HISTORY Procedure Laterality Date PAST SURGICAL HISTORY OF 04/2013 CABGx1/MVR/MAZE TMVR 12/12/2021 SOCIAL HISTORY Social History Tobacco Use Smoking status: Former Packs/day: 1.50 Years: 47.00 Total pack years: 70.50 Types: Cigarettes Quit date: 2000 Years since quittin.5 Smokeless tobacco: Never Substance Use Topics Alcohol use: Yes Alcohol/week: 14.0 standard drinks of alcohol Types: 14 Glasses of Wine (5oz) per week Drug use: Never No family history on file. ALLERGIES: ALLERGIES Allergen Reactions Iodine Other: See Comments Per pt. was used at the dentist and she developed redness of face. This was quite awhile ago. Percodan [Oxycodone* Other: See Comments Per pt caused hallucinations. MEDICATIONS: Current Outpatient Medications Medication Sig potassium chloride ER (K-DUR, KLOR-CON) 10 mEq tablet Take 1 tablet by mouth once daily. metoprolol tartrate, short acting, (LOPRESSOR) 50 mg tablet Take 1 tablet by mouth twice daily. Docusate Sodium 250 mg capsule Take 250 mg by mouth once daily. atorvastatin (LIPITOR) 20 mg tablet Take 20 mg by mouth daily at bedtime. bumetanide (BUMEX) 2 mg tablet Take 2 mg by mouth once daily. warfarin (COUMADIN) 2 mg tablet zolpidem (AMBIEN) 10 mg Take 10 mg by mouth daily at bedtime. famotidine (PEPCID) 10 mg tablet Take 10 mg by mouth twice daily. multivit-min/iron/folic/lutein (CENTRUM SILVER WOMEN ORAL) Take by mouth. Current Facility-Administered Medications Medication Dose Route Frequency perflutren lipid microspheres 1.3 mL in NaCl (PF) 0.9% 10 mL injection (DEFINITY) INTRAVENOUS DIRECTED PRN sodium chloride 0.9 % (flush) 10 mL (BD POSIFLUSH) 10 mL INTRAVENOUS DIRECTED PRN perflutren lipid microspheres 1.3 mL in NaCl (PF) 0.9% 10 mL injection (DEFINITY) INTRAVENOUS DIRECTED PRN sodium chloride 0.9 % (flush) 10 mL (BD POSIFLUSH) 10 mL INTRAVENOUS DIRECTED PRN REVIEW OF SYSTEMS: HEENT: Denies recent severe headaches, visual changes, difficulty swallowing. GASTROINTESTINAL: Denies melena, hematochezia, heartburn. GENITOURINARY: Denies hematuria. MUSCULOSKELETAL: Denies claudication or muscle myalgias. NEUROLOGIC: Denies unilateral paralysis, slurred speech. SKIN: Denies skin ulcers or lesions. HEMATOLOGICAL: Denies gingival bleeding, or prolonged epistaxis. ENDOCRINE:Denies heat or cold intolerance, excessive thirst or urination. All Other Remaining ROS negative. PHYSICAL EXAMINATION: BP 165/93 Pulse 73 Resp 14 Ht 5' 6.5 (1.69m) Wt 155 lb (70.3kg) SpO2 97% BMI 24.65 kg/(m2). General: Well appearing, in no acute distress, speaking in complete sentences. Skin: No clubbing, no cyanosis. Head/Eyes: Extra ocular movements intact Mouth: Teeth in good repair. Neck: ++ jugular venous distention, no carotid bruits, carotids have a normal upstroke, no palpable thyromegaly. Lungs: Clear to auscultation and n (more content not included)...[facility]07[facility] Evaluation note* Encounter Date Diagnosis Assessment Notes Treatment Notes Treatment Clinical Notes Mar, Dysuria (ICD-10 - R30.0) [facility] Other 07-05-2023 Evaluation note* Encounter Date Diagnosis Assessment Notes Treatment Notes Treatment Clinical Notes Mar, Medication monitoring encounter (ICD-10 - Z51.81) Referring Provider: Haresh Lino (fax: [phone]) Diagnosis: Atrial Fibrillation INR Goal: 2.0-3.0 INR: 1.9 Warfarin Tablet Size: 2mg Emile: 4mg Friday: 2mg Friday: 4mg Friday: 2mg : 4mg Friday: 2mg Friday: 4mg Total Weekly Dose: 22mg Continue above plan. Follow up in 5 weeks per patient preference. Patient declinced earlier appointment. Lucas Castro, present at appointment. Seen by Khalida Escobar, [facility] Other 05-30-2023 Evaluation note* Encounter Date Diagnosis Assessment Notes Treatment Notes Treatment Clinical Notes January, Medication monitoring encounter (ICD-10 - Z51.81) Referring Provider: Haresh Lino (fax: [phone]) Diagnosis: Atrial Fibrillation INR Goal: 2.0-3.0 INR: 2.2 Warfarin Tablet Size: 2mg Friday: 4mg Friday: 2mg Friday: 4mg Friday: 2mg : 4mg Friday: 2mg Friday: 4mg Total Weekly Dose: 22mg Continue above plan. Follow up in 5 weeks per patient preference. Lucas Castro, present at appointment. Seen by Khalida Escobar, [facility] Other 04-24-2023 Evaluation note* Encounter Date Diagnosis Assessment Notes Treatment Notes Treatment Clinical Notes Dec, Medication monitoring encounter (ICD-10 - Z51.81) Referring Provider: Haresh Lino (fax: [phone]) Diagnosis: Atrial Fibrillation INR Goal: 2.0-3.0 INR: 2.3 Warfarin Tablet Size: 2mg Friday: 4mg Friday: 2mg Friday: 4mg Friday: 2mg : 4mg Friday: 2mg Friday: 4mg Total Weekly Dose: 22mg Continue above plan. Follow up in 5 weeks per patient preference. Reviewed patient take away document and when to call [facility] Lucas Castro, present at appointment. Seen by Khalida Escobar, [facility] [facility] Other 04-10-2023 Evaluation note* Encounter Date Diagnosis Assessment Notes Treatment Notes Treatment Clinical Notes Dec, Medication monitoring encounter (ICD-10 - Z51.81) Referring Provider: Haresh Lino (fax: [phone]) Diagnosis: Atrial Fibrillation INR Goal: 2.0-3.0 INR: 3.1 Warfarin Tablet Size: 2mg Friday: 4mg Friday: 2mg Friday: 4mg Friday: 2mg : 4mg Friday: 2mg Friday: 4mg Total Weekly Dose: 22mg Continue above plan. Follow up in 2 weeks. Patient reports taking 4mg on Friday (12/18) likely cause of today's elevated INR. Lucas, present at appointment. Seen by Khalida Escobar, [employer] Other 03-29-2023 Evaluation note* Encounter Date Diagnosis Assessment Notes Treatment Notes Treatment Clinical Notes Nov, Medication monitoring encounter (ICD-10 - Z51.81) Referring Provider: Haresh Lino (fax: [phone]) Diagnosis: Atrial Fibrillation INR Goal: 2.0-3.0 INR: 3.5 Warfarin Tablet Size: 2mg Friday: 4mg Friday: 2mg Friday: 4mg Friday: 2mg : 4mg Friday: 2mg Friday: 4mg Total Weekly Dose: 22mg Begin above plan, an 8% decrease. Follow up in 2 weeks. Unknown cause of elevated INRs. Patient reports an increase in Vit K rich vegetables in diet since last INR appointment. [place], present at appointment. Seen by Khalida Escobar, [employer] Other 03-22-2023 Evaluation note* Encounter Date Diagnosis Assessment Notes Treatment Notes Treatment Clinical Notes Nov, ASHD (arteriosclerotic heart disease) (ICD-10 - I25.10) This patient is stable without activity related CP, dyspnea or lightheadedness. They are instructed to continue exercise and AHA diet plan. Nov, Chronic atrial fibrillation (ICD-10 - I48.20) This patient is in NSR or rate controlled. This patient is anticoagulated to prevent thromboembolic events. They are maintaining regular scheduled appts with their kiln setter. Nov, Essential hypertension (ICD-10 - I10) This patient is instructed to consume a healthy, low-fat, low-salt diet. They are also encouraged to continue exercise to achieve/maintain a normal BMI. Nov, Obstructive sleep apnea (adult) (pediatric) (ICD-10 - G47.33) This patient is aware of the benefits associated with LISA: With continued use, the patient reduces the risk for WI, CVA, HTN, cardiac dysrhythmias and sudden cardiac deaths.The patient is also aware of the association between LISA and morning headaches, daytime somnolence, fatigue and obesity, which also has been improved with continued use.The patient is compliant with treatment, wearing the equipment every night for greater than 4 hours.The patient is instructed to continue use of the CPAP for LISA treatment. Nov, Nonrheumatic tricuspid valve regurgitation (ICD-10 - I36.1) Repeat echocardiogram in spring w/ referral to CT surgery. Monitor for increased fluid retention, increased abdominal girth, lower extremity edema Nov, Chronic venous insufficiency (ICD-10 - I87.2) Avoid salt and elevate lower extremities, support stockings, inspect legs and feet daily for blisters and ulcerations. Nov, Hyperlipidemia type II (ICD-10 - E78.01) Diet and exercise with continued statin therapy. Nov, H/O mitral valve replacement (ICD-10 - Z95.2) Stable postoperative course Improved endurance w/ less IGLESIAS f/u Cardiology Nov, Carotid bruit, unspecified laterality (ICD-10 - R09.89) Nov, Other Due [facility] Other 03-15-2023 Evaluation note* Encounter Date Diagnosis Assessment Notes Treatment Notes Treatment Clinical Notes Nov, Medication monitoring encounter (ICD-10 - Z51.81) Referring Provider: Haresh Lino (fax: [phone]) Diagnosis: Atrial Fibrillation INR Goal: 2.0-3.0 INR: 3.5 Warfarin Tablet Size: 2mg Friday: 4mg Friday: 2mg Friday: 4mg Friday: 4mg : 4mg Friday: 2mg Friday: 4mg Total Weekly Dose: 24mg Reduced dose to 2 mg today then continue above plan. Follow up 2 weeks. Patient reports to have eaten less vitamin rich K vegtables, possible cause of elevated INR Seen by Siria Galloway PharmD [facility] Other 03-07-2023 Nurse Note* Kyung Mcgarry LPN - 11/19/2022 4:52 PM EST Hand Sizer present: for cardiology exam with Dr Tee Mcgarry LPN [facility] Inst[facility]* Patient Instructions* Smita Reeves MD - 11/19/2022 4:50 PM EST [facility] Curly Polanco[facility] for January 2023 [facility] History of Present illness Narrative* Smita Reeves MD - 11/19/2022 4:33 PM EST SUBJECTIVE: Celia Chopra is an 87 year old female. Patient presents with: CARD New Patient Consult Celia Chopra was referred by Haresh Lino HPI: The patient is a pleasant, 87-year-old female, with an apparent history of rheumatic fever as a child, with subsequent rheumatic mitral valve disease. The patient underwent a single-vessel coronary artery bypass graft, with a left radial to the diagonal branch of the left anterior descending, as well as mitral valve replacement, using a 27 mm pericardial bioprosthesis and a maze procedure, at the [facility], in April 2013. The patient presented for evaluation, after complaining to her primary kiln setter of increasing exertional dyspnea and fatigue occurring over the last year. By report, the patient was found to have renarrowing of the mitral valve, although no echo or otherreport was available at time of dictation. Echocardiogram, August 2021, revealed an ejection fraction of 63%, with a mildly dilated right ventricle and evidence of severe pulmonary hypertension with right-sided pressures estimated at 90 mmHg. The bioprosthetic mitral valve demonstrated a mean transvalvular gradient of 16 mmHg. The tricuspid valve demonstrated 3+, moderately severe tricuspid valve regurgitation. The aortic valve demonstrated possible paradoxical low-flow low gradient moderately severe aortic valve stenosis with mild aortic valve regurgitation and a mean gradient of 10 mmHg, with a calculatedaortic valve area of 0.86 cm . After undergoing transesophageal echocardiography, the patient underwent evaluation at the main campus and subsequently underwent: Transcatheter mitral valve in valve replacement using a 29-mm Marina Nela S3 ultra valve in a 27-mm Marina [id number] tissue valve, November 2021 CARDIAC HISTORY: SYMPTOMS: Chest pain/discomfort: No, Palpitations:Yes, Arrhythmia: Yes. Chronic/persistent atrial fibrillation dyspnea: Yes, Dyspnea at rest: Yes, Nocturnal dyspnea: Yes Orthopnea: Yes, Diaphoresis: No, Dizziness: No, Syncope: No, Edema: Yes, Nocturia: Yes, Impaired exercise tolerance: Yes, Claudication:No CONDITIONS: Hypertension: No, Heart failure:Yes, [place] [employer] Functional Classification: Class II, Atrial fibrillation:Yes, History of myocardial infarction/angina: No, History of CABG/PCI:Yes, Valvular heart disease: Yes, Cardiomyopathy: No, Aortic diseases: No, Peripheral vascular disease: Yes, History of cerebrovascular accident: No, History of pulmonary embolism No, History of DVT No. History of rheumatic fever: Yes, History of transient ischemic attacks: No, Congenital heart disease: No,Pericarditis: No, Pericardial Effusion: No, Coronary Calcium: No, Pulmonary HTN: No CORONARY RISK FACTORS: Family history of coronary artery disease No, Tobacco use No: Remote, heavy smoker, Sedentary lifestyle Yes, Hypertension No, Hyperlipidemia No, Diabetes mellitus No, Obesity No, Peripheral vascular disease Yes. HISTORIES: FAMILY HISTORY No family history on file. PAST MEDICAL HISTORY No past medical history on file. PAST SURGICAL HISTORY No past surgical history on file. SOCIAL HISTORY Social History Tobacco Use Smoking status: Not on file Substance Use Topics Alcohol use: Not on file Drug use: Not on file Occupation: Retired ALLERGIES ALLERGIES Not on File REVIEW OF SYSTEMS: Constitutional: Fatigue: Yes, Weight loss: No, Weight gain: No, Fever: No, Chills: No Eyes: Blurred or Reduced Vision:No Ears: Hearing Loss:No Nose,Throat: Epistaxis:No, Bleeding gums:No Respiratory: Dyspnea:Yes, Cough:No, Hemoptysis:No, Wheezing:No, Pleuritic pain:No, Sleep Apnea:No, COPD:Yes, Asthma:No Gastrointestinal: Hematemesis:No, Blood in stool:No, Abdominal pain:No, Nausea and/or vomiting:No Genitourinary: Dysuria:No, Hematuria:No, Renal insufficiency:No, Pregnancies:Yes: details: 1 uncomplicated, BPH:No, Erectile Dysfunction:No Hematologic: Anemia:No, Bruises easily:Yes, Bleeds easily:No History of Cancer: No Musculoskeletal: Muscle pain:No, Arthritis/Arthralgia:Yes Skin: Rash:No, Pruritus:No Neurologic: Headache:No, Dizziness:No, Seizures:No, Dementia:No Psychiatric: Anxiety:No, Depression:No, Over the past 2 weeks have you felt down, depressed or hopeless?:No, Over the past 2 weeks have you felt little interest or pleasure in doing things?:No Endocrine: Polyphagia:No, Polydipsia:No, Polyuria:No, Goiter:No, Hyper/hypothyroidism:No, Dyslipidemia:No Allergic, Immunology: Urticaria:No, Collagen vascular disease:No Other: The rest of the review of systems is unremarkable and negative or non-contributory. OBJECTIVE: VITALS: Blood pressure 144/88, pulse 70, height 167.6 cm (5' 6 ), weight 70.8 kg (156 lb). PHYSICAL EXAMINATION: Changes noted below. GENERAL APPEARANCE: Appears Healthy:Yes, Obese:No, Acute distress:No, Appearance consistent with age:Yes, Responds appropriately: Yes MENTAL STATUS: Alert:Yes, Cooperative:Yes, Pleasant:Yes, Affect: normal EYES: Conjunctiva/corneas normal:Yes, PERRL:Yes, Scleral icterus:No, Xanthelasma:No HEAD, NECK: Good oral hygiene:Yes, Oral mucosa normal:Yes, Jugular venous distention:Yes. 4 cm, Hepatojugular reflux:Yes, Thyromegaly:No, Carotid endarterectomy:No,Thyroidectomy :No RESPIRATORY:Chest movement symmetrical:Yes, Respiratory effort normal:Yes, Percussion of chest normal:Yes, Breath sounds normal:Yes, Crackles:Yes, Rales:No, Rhonchi:No, Wheezing:No, Pleural friction rub:No, Evidence of pacemaker/ICD:No, Median sternotomy scar:Yes, Sternal instability:No CARDIAC: Displaced apex beat, Cardiac thrill:No, Heart rate normal:Yes, Heart rhythm normal:No: Atrial fibrillation, S1 normal:No: Prosthetic component, S2 normal:Yes, S3 ausculated:No, S4 ausculated:No, Gallop ausculated:No, Heart murmur:Yes. 4/6 left parasternal border systolic and 2/6 ejection systolic, Prosthetic valve click:No, Pericardial friction rub:No ABDOMINAL:Abdomen soft, non-tender. BS normal. No masses or organomegaly. VASCULAR/EXTREMITIES:Radial pulse normal:Yes, Carotid pulse normal:Yes, Carotid bruit:No, Abdominalaorta palpable:No, Abdominal aortic bruit:No, Femoral pulse normal:Yes, Femoral bruit:No, Dorsalis pedis pulse present:Yes, Posterior tibial pulse present:Yes, Popliteal pulse:Yes, Varicose veins:Yes, Leg edema:Yes, Pedal edema:Yes NEUROLOGIC: Grossly non-focal:Yes MUSCULOSKELETAL: Muscle strength normal:Yes, Joint range of motion normal:Yes SKIN: Clubbing:No, Cyanosis:No, Pallor:No, Diaphoresis:No, Stasis dermatitis/post phlebitic changes:Yes, Cutaneous xanthoma:No REVIEWED: ECG: YES atrial fibrillation 77 bpm rightward axis incomplete right bundle branch block diffuse nonspecific ST-T wave changes Echo: No Cath: No Stress: No PREVENTATIVE CARE: GENERAL: Non-smoker DIET/EXERCISE: Recommended regular physical activity. PATIENT EDUCATION: Continue with medications as directed. Prescription risks and side effects discussed. Instructed on CHF. ASSESSMENT/PLAN/RECOMMENDATIONS: The patient continues to do remarkably well at this visit, 1 year after valve in valve mitral valvepercutaneous intervention (TMVR). After reviewing her current medication regimen, I see no reason to make any changes. The patient will follow with me in the office routinely in 1 year. The patient will follow at the main adger, with repeat echocardiogram, in January 2023, as requested at her last main campus evaluation. Portions of the encounter note have been copied from a previous note, dated 03/11/2022, which has been updated where appropriate and reflects my current medical decision making from today. I spent a total of 35 minutes on the date of the service which included preparing to see the patient, [id number] patient care, completing clinical documentation, performing a medically appropriate examination, counseling and educating the patient/family/caregiver, and ordering medications, tests,or procedures. Mitral valve stenosis, rheumatic (primary encounter diagnosis) Chronic atrial fibrillation (hcc) Hx of maze procedure History of mvr with cardiopulmonary bypass Tricuspid valve insufficiency, unspecified etiology Pulmonary htn (hcc) S/p mvr (mitral valve replacement) Smita Reeves MD [facility] Evaluation note* Encounter Date Diagnosis Assessment Notes Treatment Notes Treatment Clinical Notes Oct, Medication monitoring encounter (ICD-10 - Z51.81) Referring Provider: Haresh Lino (fax: [phone]) Diagnosis: Atrial Fibrillation INR Goal: 2.0-3.0 INR: 2.9 Warfarin Tablet Size: 2mg Friday: 4mg Friday: 2mg Friday: 4mg Friday: 4mg : 4mg Friday: 2mg Friday: 4mg Total Weekly Dose: 24mg Continue above plan. Follow up 4 weeks. Seen by Khalida Escobar [facility] [employer] Other 01-12-2023 Evaluation note* Encounter Date Diagnosis Assessment Notes Treatment Notes Treatment Clinical Notes Sep, Medication monitoring encounter (ICD-10 - Z51.81) Referring Provider: Haresh Lino (fax: [phone]) Diagnosis: Atrial Fibrillation INR Goal: 2.0-3.0 INR: 2.9 Warfarin Tablet Size: 2mg Friday: 4mg Friday: 2mg Friday: 4mg Friday: 4mg : 4mg Friday: 2mg Friday: 4mg Total Weekly Dose: 24mg Continue above plan. Patient recently moved to the area and is establishing care with [facility]. Patient has been on the above weekly dose for several months. Follow up 4 weeks. Discussed adherence of clinic guidelines. Education provided regarding diet, medication compliance, clinic appointment compliance, signs and symptoms to call clinic or physician or ER. Risks and Benefits of anticoagulation therapy provided. Informed patient to call the clinic with any and all changes in medications or missed doses. You do not need to avoid eating food with vitamin K while on warfarin, just stay consistent with the amount you eat per week. Instructions to not follow directions on warfarin medication bottle. This may change with each visit. Follow instructions on your take home sheet. Seen by Khalida Escobar [facility] Other 10-03-2022 Evaluation note* Encounter Date Diagnosis Assessment Notes Treatment Notes Treatment Clinical Notes Jun, Leg wound, left (ICD-10 - S81.802A) Your wound is healing well. Continue to apply the mupirocin ointment once per day and keep it wrapped. Continue to take the antibiotics as prescribed. I would like to you to follow-up with Dr. Lino your primary doctor in 7 to 10 days. Continue to keep your leg elevated. Jun, Erythema of upper extremity (ICD-10 - L53.9) I suspect pt is having a hypersensitivity reaction to the recent vaccine she had. Will prescribe triamcinolone cream. Given return precautions. [facility] Other 09-26-2022 Evaluation note* Encounter Date Diagnosis Assessment Notes Treatment Notes Treatment Clinical Notes May, Leg wound, left (ICD-10 - S81.802A) You will need to follow up with me in one week for a wound check. Take medicine as prescribed. Keep your legs elevated and wrap your left leg with acewrap and keep wrapped during the day. 87-year-old female who presents to the urgent care for a leg wound on the anterior tibial region of the left lower extremity. There does appear to be secondary cellulitis surrounding the wound. There is no crepitus on palpation and no pain out of proportion which is reassuring. Given that she has not had a tetanus in over 10 years, we will update her tetanus vaccine. We will prescribe mupirocin ointment as well as cephalexin. Given that the patient takes Coumadin every day, I advised her to follow-up with the Coumadin clinic in 3 days for PT/INR recheck. We will have the patient follow back up in clinic with me in 1 week for wound check. She may require sharp debridement follow-up. Patient understands and agrees with plan. May, Cellulitis of left lower extremity (ICD-10 - L03.116) [facility] Other 09-01-2022 Evaluation note* Encounter Date Diagnosis Assessment Notes Treatment Notes Treatment Clinical Notes May, Obstructive sleep apnea (adult) (pediatric) (ICD-10 - G47.33) She is using treatment, and does benefit from its use. There are some breakthrough apneas according to most recent download, and she does have some discomfort. She would like to change DME providers, and needs order for supply. Pressures can be uncomfortable for her sometimes so we will switch to auto CPAP mode minimum 7 maximum 12. She is on fixed pressure now, and does have some residual AHI. We will check download in a month or so after changing. I am hoping that better fit, keeping up with headgear, and switching to auto mode may allow her to wear it throughout the night more regularly. 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 She denies side effects. This is being managed elsewhere. There is theoretic concern as use of hypnotic agents in this age range does not increase the risk of falls during the night May, Chronic atrial fibrillation (ICD-10 - I48.20) She has had chronic mitral valvular disease and reports she has had valve replacement twice. [facility] Other 06-27-2022 Nurse Note* Temitope Melendez LPN - 03/11/2022 4:46 PM EDT Cardiac exam chaperoned by Temitope Melendez LPN documented [facility] this [facility] History of Present illness Narrative* Smita Reeves MD - 03/11/2022 4:20 PM EDT SUBJECTIVE: Celia Chopra is an 86 year old female. Patient presents with: CARD New Patient Consult Celia Chopra was referred by Haresh Lino HPI: The patient is a pleasant, 86-year-old female, with an apparent history of rheumatic fever as a child, with subsequent rheumatic mitral valve disease. The patient underwent a single-vessel coronary artery bypass graft, with a left radial to the diagonal branch of the left anterior descending, as well as mitral valve replacement, using a 27 mm pericardial bioprosthesis and a maze procedure, at the [facility], in April 2013. 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 By report, the patient was found to have renarrowing of the mitral valve, although no echo or otherreport was available at time of dictation. Echocardiogram, August 2021, revealed an ejection fraction of 63%, with a mildly dilated right ventricle and evidence of severe pulmonary hypertension with right-sided pressures estimated at 90 mmHg. The bioprosthetic mitral valve demonstrated a mean transvalvular gradient of 16 mmHg. The tricuspid valve demonstrated 3+, moderately severe tricuspid valve regurgitation. The aortic valve demonstrated possible paradoxical low-flow low gradient moderately severe aortic valve stenosis with mild aortic valve regurgitation and a mean gradient of 10 mmHg, with a calculatedaortic valve area of 0.86 cm . After undergoing transesophageal echocardiography, the patient underwent evaluation at the main campus and subsequently underwent: Transcatheter mitral valve in valve replacement using a 29-mm Marina Nela S3 ultra valve in a 27-mm Marina [id number] tissue valve, November 2021 CARDIAC HISTORY: SYMPTOMS: Chest pain/discomfort: No, Palpitations:Yes, Arrhythmia: Yes. Chronic/persistent atrial fibrillation dyspnea: Yes, Dyspnea at rest: Yes, Nocturnal dyspnea: Yes Orthopnea: Yes, Diaphoresis: No, Dizziness: No, Syncope: No, Edema: Yes, Nocturia: Yes, Impaired exercise tolerance: Yes, Claudication:No CONDITIONS: Hypertension: No, Heart failure:Yes, [place] [employer] Functional Classification: Class II, Atrial fibrillation:Yes, History of myocardial infarction/angina: No, History of CABG/PCI:Yes, Valvular heart disease: Yes, Cardiomyopathy: No, Aortic diseases: No, Peripheral vascular disease: Yes, History of cerebrovascular accident: No, History of pulmonary embolism No, History of DVT No. History of rheumatic fever: Yes, History of transient ischemic attacks: No, Congenital heart disease: No,Pericarditis: No, Pericardial Effusion: No, Coronary Calcium: No, Pulmonary HTN: No CORONARY RISK FACTORS: Family history of coronary artery disease No, Tobacco use No: Remote, heavy smoker, Sedentary lifestyle Yes, Hypertension No, Hyperlipidemia No, Diabetes mellitus No, Obesity No, Peripheral vascular disease Yes. HISTORIES: FAMILY HISTORY No family history on file. PAST MEDICAL HISTORY No past medical history on file. PAST SURGICAL HISTORY No past surgical history on file. SOCIAL HISTORY Social History Tobacco Use Smoking status: Not on file Substance Use Topics Alcohol use: Not on file Drug use: Not on file Occupation: Retired ALLERGIES ALLERGIES Not on File REVIEW OF SYSTEMS: Constitutional: Fatigue: Yes, Weight loss: No, Weight gain: No, Fever: No, Chills: No Eyes: Blurred or Reduced Vision:No Ears: Hearing Loss:No Nose,Throat: Epistaxis:No, Bleeding gums:No Respiratory: Dyspnea:Yes, Cough:No, Hemoptysis:No, Wheezing:No, Pleuritic pain:No, Sleep Apnea:No, COPD:Yes, Asthma:No Gastrointestinal: Hematemesis:No, Blood in stool:No, Abdominal pain:No, Nausea and/or vomiting:No Genitourinary: Dysuria:No, Hematuria:No, Renal insufficiency:No, Pregnancies:Yes: details: 1 uncomplicated, BPH:No, Erectile Dysfunction:No Hematologic: Anemia:No, Bruises easily:Yes, Bleeds easily:No History of Cancer: No Musculoskeletal: Muscle pain:No, Arthritis/Arthralgia:Yes Skin: Rash:No, Pruritus:No Neurologic: Headache:No, Dizziness:No, Seizures:No, Dementia:No Psychiatric: Anxiety:No, Depression:No, Over the past 2 weeks have you felt down, depressed or hopeless?:No, Over the past 2 weeks have you felt little interest or pleasure in doing things?:No Endocrine: Polyphagia:No, Polydipsia:No, Polyuria:No, Goiter:No, Hyper/hypothyroidism:No, Dyslipidemia:No Allergic, Immunology: Urticaria:No, Collagen vascular disease:No Other: The rest of the review of systems is unremarkable and negative or non-contributory. OBJECTIVE: VITALS: BP 116/80 Pulse 77 Ht 5' 6 (1.68m) Wt 155 lb (70.3kg) BMI 25.03 kg/(m^2). PHYSICAL EXAMINATION: GENERAL APPEARANCE: Appears Healthy:Yes, Obese:No, Acute distress:No, Appearance consistent with age:Yes, Responds appropriately: Yes MENTAL STATUS: Alert:Yes, Cooperative:Yes, Pleasant:Yes, Affect: normal EYES: Conjunctiva/corneas normal:Yes, PERRL:Yes, Scleral icterus:No, Xanthelasma:No HEAD, NECK: Good oral hygiene:Yes, Oral mucosa normal:Yes, Jugular venous distention:Yes. 3-4 cm, Hepatojugular reflux:Yes, Thyromegaly:No, Carotid endarterectomy:No,Thyroidectomy :No RESPIRATORY:Chest movement symmetrical:Yes, Respiratory effort normal:Yes, Percussion of chest normal:Yes, Breath sounds normal:Yes, Crackles:Yes, Rales:No, Rhonchi:No, Wheezing:No, Pleural friction rub:No, Evidence of pacemaker/ICD:No, Median sternotomy scar:Yes, Sternal instability:No CARDIAC: Displaced apex beat, Cardiac thrill:No, Heart rate normal:Yes, Heart rhythm normal:No: Atrial fibrillation, S1 normal:No: Prosthetic component, S2 normal:Yes, S3 ausculated:No, S4 ausculated:No, Gallop ausculated:No, Heart murmur:Yes. 3/6 left parasternal border systolic and 2/6 ejection systolic, Prosthetic valve click:No, Pericardial friction rub:No ABDOMINAL:Abdomen soft, non-tender. BS normal. No masses or organomegaly. VASCULAR/EXTREMITIES:Radial pulse normal:Yes, Carotid pulse normal:Yes, Carotid bruit:No, Abdominalaorta palpable:No, Abdominal aortic bruit:No, Femoral pulse normal:Yes, Femoral bruit:No, Dorsalis pedis pulse present:Yes, Posterior tibial pulse present:Yes, Popliteal pulse:Yes, Varicose veins:Yes, Leg edema:Yes, Pedal edema:Yes NEUROLOGIC: Grossly non-focal:Yes MUSCULOSKELETAL: Muscle strength normal:Yes, Joint range of motion normal:Yes SKIN: Clubbing:No, Cyanosis:No, Pallor:No, Diaphoresis:No, Stasis dermatitis/post phlebitic changes:Yes, Cutaneous xanthoma:No REVIEWED: ECG: YES atrial fibrillation 77 bpm rightward axis incomplete right bundle branch block diffuse nonspecific ST-T wave changes Echo: No Cath: No Stress: No PREVENTATIVE CARE: GENERAL: Non-smoker DIET/EXERCISE: Recommended regular physical activity. PATIENT EDUCATION: Continue with medications as directed. Prescription risks and side effects discussed. Instructed on CHF. ASSESSMENT/PLAN/RECOMMENDATIONS: The patient describes significant/dramatic improvement since undergoing transcatheter mitral valve in valve replacement for severe prosthetic valve mitral stenosis, November 2021. After reviewing her current medication regimen, I see no reason to make any changes. [facility] with me in the office in November 2022. Encounter Diagnosis ICD-10-CM 1. Mitral valve stenosis, rheumatic I05.0 2. History of MVR with cardiopulmonary bypass Z95.2 3. Chronic atrial fibrillation (HCC) I48.20 4. Hx of maze procedure Z98.890 Smita Reeves MD Portions of the encounter note have been copied from a previous note, dated 07/17/2021, which has been updated where appropriate and reflects my current medical decision making from today. [facility] History of Present illness Narrative* Jesika Martin PA-C - 02/07/2022 11:00 AM EDT Images from the original note were not included. [facility] Department of Cardiovascular Medicine SECTION OF INTERVENTIONAL CARDIOLOGY OUTPATIENT VISIT DATE February 07, 2022 OUTPATIENT VISIT TYPE ESTABLISHED PRIMARY CARE PHYSICIAN: Haresh Lino ([facility]) [address] [place] [address] REFERRING PHYSICIAN: Beverly Polanco [address] [facility] [id number] CHIEF COMPLAINT: Patient presents with: Follow Up HISTORY OF PRESENT ILLNESS: Ms. Chopra is a 86 year old female who presents today for follow-up visit s/p TMVR Valve in Valve #26 (S3) w/ Ayla on 12/12/21 PAST CARDIAC HISTORY: See HPI PAST MEDICAL HISTORY Diagnosis Date Rheumatic fever Rheumatic mitral valve disease PAST SURGICAL HISTORY Procedure Laterality Date PAST SURGICAL HISTORY OF 04/2013 CABGx1/MVR/MAZE SOCIAL HISTORY Social History Tobacco Use Smoking status: Former Smoker Packs/day: 1.50 Years: 47.00 Pack years: 70.50 Quit date: 2000 Years since quittin.4 Smokeless tobacco: Never Used Substance Use Topics Alcohol use: Yes Alcohol/week: 14.0 standard drinks Types: 14 Glasses of Wine (5oz) per week Drug use: Not on file No family history on file. ALLERGIES: ALLERGIES Allergen Reactions Iodine Other: See Comments Per pt. was used at the dentist and she developed redness of face. This was quite awhile ago. Percodan [Oxycodone* Other: See Comments Per pt caused hallucinations. MEDICATIONS: ALBUTEROL INHALATION Take 2 Puffs by mouth as needed. Docusate Sodium (STOOL SOFTENER) 250 mg capsule Take 250 mg by mouth once daily. atorvastatin (LIPITOR) 20 mg tablet Take 20 mg by mouth daily at bedtime. bumetanide (BUMEX) 2 mg tablet Take 2 mg by mouth once daily. metoprolol tartrate, short acting, (LOPRESSOR) 50 mg tablet twice daily. potassium chloride ER (K-DUR, KLOR-CON) 10 mEq tablet warfarin (COUMADIN) 2 mg tablet zolpidem (AMBIEN) 10 mg Take 10 mg by mouth daily at bedtime. famotidine (PEPCID AC) 10 mg tablet Take 10 mg by mouth twice daily. multivit-min/iron/folic/lutein (CENTRUM SILVER WOMEN ORAL) Take by mouth. REVIEW OF SYSTEMS: HEENT: Denies recent severe headaches, visual changes, difficulty swallowing. GASTROINTESTINAL: Denies melena, hematochezia, heartburn. GENITOURINARY: Denies hematuria. MUSCULOSKELETAL: Denies claudication or muscle myalgias. NEUROLOGIC: Denies unilateral paralysis, slurred speech. SKIN: Denies skin ulcers or lesions. HEMATOLOGICAL: Denies gingival bleeding, or prolonged epistaxis. ENDOCRINE:Denies heat or cold intolerance, excessive thirst or urination. All Other Remaining ROS negative. PHYSICAL EXAMINATION: BP 150/77 Pulse 68 Ht 5' 6 (1.68m) Wt 153 lb (69.4kg) BMI 24.71 kg/(m^2). General:well developed Skin:warm and dry Neck:no JVD, no carotid bruits, thyroid not palpable, no tenderness Lungs:clear to auscultation and no rales Heart:regular rhythm, S1, S2 normal, no S3, no S4, no heaves, no thrills and grade 1-2/6 systolic murmur along left sternal border PV Pulses:pulses intact, no varicosities Abdomen:soft, non-tender, bowel sounds present Extremities:normal exam Edema Scale:no Musculoskeletal:Normal gait and ambulation, Able to undergo exercise testing and/or participate in an exercise program. Neurologic:Oriented to time, place and person, Mood & Affect: appropriate CARDIOVASCULAR MEDICINE TESTING: Electrocardiogram: ATRIAL FIBRILLATION WITH SLOW VENTRICULAR RESPONSE INCOMPLETE RIGHT BUNDLE BRANCH BLOCK NONSPECIFIC ST AND T WAVE ABNORMALITY (Unchanged from previous) Echocardiogram: pending I have personally reviewed the Electrocardiogram and Echocardiogram. HISTORY Cleia Chopra is an 86 year old female with pmhx of: 1. (T82.857D) Stenosis of prosthetic mitral valve, subsequent encounter (primary encounter diagnosis)., s/p Successful transcatheter mitral dgkfe-hs-clksx replacement with a 26 mm Marina Nela 3 transcatheter heart valve on 12/12/21 2. 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 (I07.1) Severe tricuspid regurgitation 4. (I10) Essential hypertension 5. (I48.20) Atrial fibrillation, chronic (HCC) ASSESSMENT: Prior to TMVR, she complained of progressively worsening IGLESIAS and edema MARLYN 09/19/21: EF = 60 5% Bioprosthetic prosthetic mitral valve (size #27). There is mild (1+) mitral valve regurgitation. There is severe mitral stenosis caused by prosthetic thickening/calcification and restricted opening. The peak gradient is 25 mmHg and the mean gradient is 12 mmHg. There is severe (4+) tricuspid valve regurgitation. On 12/12/21, she underwent Successful transcatheter mitral hhklm-ky-eqnjm replacement with a 26 mm Marina Nela 3 transcatheter heart valve Post Procedure Echo: EF = 65 5% Post mitral valve replacement. Marina Nela 3 prosthetic mitral valve (size #26). There is no mitral valve regurgitation. The peak gradient is 15 mmHg and the mean gradient is 3 mmHg There is severe (4+) tricuspid valve regurgitation caused by annular dilatation. There is moderate (2+ - 3+) pulmonic valve regurgitation. Estimated right ventricular systolic pressure is likely underestimated due to a weak or incomplete tricuspid regurgitation signal and is, at least, 89 mmHg consistent with severe pulmonary hypertension. Status post LAMPOON and transcatheter mitral valve in valve procedure using size 26 Marina Nela valve. Post EKG atrial fibrillation, known ICRBBB She was last seen 12/31/21, per note; She presents doing well. She has noticed she is no longer short of breath and has more energy. INR 12/24/21: therapeutic at 2.0, aspirin 81 mg stopped Discussion regarding attending cardiac rehab, order placed. Right groin access site well healed. She denies chest pain, shortness of breath, dyspnea on exertion, orthopnea, PND, palpitations, lightheadedness, syncope, claudication, cough and wheezing. Today 02/07/22, she presents doing remarkably good . She is able to be active and do whatever she wants without any shortness of breath. She is starting cardiac rehab February 13, 2022 She denies chest pain, shortness of breath, dyspnea on exertion, orthopnea, PND, palpitations, lightheadedness, syncope, claudication, leg swelling, cough and wheezing. IMPRESSION/PLAN: Aspirin: none DAPT: None AC: Wafarin Beta Cecilia: Lopressor 50 mg BID ACEI/ARB/ARNI: None SGLT2 inhibitor: None Diuretic: Bumex 2 mg daily Aldosterone antagonist: None Statin: Lipitor 20 mg Device therapy: None BP elevated today in office, advised monitor BP and follow up with PCP Follow up/Disposition: Follow up with Dr. Reeves 03/11/22 and follow up with Dr. Polanco in 1 year with Echo I spent a total of 45 minutes on the date of the service which included preparing to see the patient, [id number] patient care, completing clinical documentation, performing a medically appropriate examination, counseling and educating the patient/family/caregiver, ordering medications, tests, or p rocedures and communicating results to the patient/family/caregiver. Jesika Martin PA-C documented in this encounterT[facility]04-18-[facility]22 History of Present illness Narrative* Jesika Martin PA-C - 12/31/2021 11:00 AM EDT Images from the original note were not included. [facility] Department of Cardiovascular Medicine SECTION OF INTERVENTIONAL CARDIOLOGY OUTPATIENT VISIT DATE December 31, 2021 OUTPATIENT VISIT TYPE ESTABLISHED PRIMARY CARE PHYSICIAN: Haresh Lion ([facility]) [address] [place] [address] REFERRING PHYSICIAN: Beverly Polanco [address] [facility] [address] CHIEF COMPLAINT: No chief complaint on file. HISTORY OF PRESENT ILLNESS: Ms. Chopra is a 86 year old female who presents today for follow-up visit s/p TMVR Valve in Valve #26 (S3) w/ Ayla on 12/12/21 PAST CARDIAC HISTORY: See HPI PAST MEDICAL HISTORY Diagnosis Date Rheumatic fever Rheumatic mitral valve disease PAST SURGICAL HISTORY Procedure Laterality Date PAST SURGICAL HISTORY OF 04/2013 CABGx1/MVR/MAZE SOCIAL HISTORY Social History Tobacco Use Smoking status: Former Smoker Packs/day: 1.50 Years: 47.00 Pack years: 70.50 Quit date: 2000 Years since quittin.3 Smokeless tobacco: Never Used Substance Use Topics Alcohol use: Yes Alcohol/week: 14.0 standard drinks Types: 14 Glasses of Wine (5oz) per week Drug use: Not on file No family history on file. ALLERGIES: ALLERGIES Allergen Reactions Iodine Other: See Comments Per pt. was used at the dentist and she developed redness of face. This was quite awhile ago. Percodan [Oxycodone* Other: See Comments Per pt caused hallucinations. MEDICATIONS: aspirin 81 mg chewable tablet Take 1 tablet by mouth once daily. 1 tablet a day til INR therapeutic ALBUTEROL INHALATION Take 2 Puffs by mouth as needed. Docusate Sodium (STOOL SOFTENER) 250 mg capsule Take 250 mg by mouth once daily. atorvastatin (LIPITOR) 20 mg tablet Take 20 mg by mouth daily at bedtime. bumetanide (BUMEX) 2 mg tablet Take 2 mg by mouth once daily. metoprolol tartrate, short acting, (LOPRESSOR) 50 mg tablet twice daily. potassium chloride ER (K-DUR, KLOR-CON) 10 mEq tablet warfarin (COUMADIN) 2 mg tablet zolpidem (AMBIEN) 10 mg Take 10 mg by mouth daily at bedtime. famotidine (PEPCID AC) 10 mg tablet Take 10 mg by mouth twice daily. vit A/vit C/vit E/zinc/copper (PRESERVISION AREDS ORAL) Take by mouth. multivit-min/iron/folic/lutein (CENTRUM SILVER WOMEN ORAL) Take by mouth. REVIEW OF SYSTEMS: HEENT: Denies recent severe headaches, visual changes, difficulty swallowing. GASTROINTESTINAL: Denies melena, hematochezia, heartburn. GENITOURINARY: Denies hematuria. MUSCULOSKELETAL: Denies claudication or muscle myalgias. NEUROLOGIC: Denies unilateral paralysis, slurred speech. SKIN: Denies skin ulcers or lesions. HEMATOLOGICAL: Denies gingival bleeding, or prolonged epistaxis. ENDOCRINE:Denies heat or cold intolerance, excessive thirst or urination. All Other Remaining ROS negative. PHYSICAL EXAMINATION: BP 143/78 Pulse 77 Ht 5' 6 (1.68m) Wt 152 lb (68.9kg) BMI 24.55 kg/(m^2). General:overweight Skin:warm and dry Neck:no JVD, no carotid bruits, thyroid not palpable, no tenderness Lungs:clear to auscultation and no rales Heart:regular rhythm, S1, S2 normal, no S3, no S4, no heaves, no thrills and grade 1/6 systolic murmur along lower left sternal border and apex PV Pulses:pulses intact, no femoral bruit, no varicosities Abdomen:soft, non-tender, bowel sounds present Extremities:normal exam Edema Scale:non-pitting Musculoskeletal:Normal gait and ambulation, Able to undergo exercise testing and/or participate in an exercise program. Neurologic:Oriented to time, place and person, Mood & Affect: appropriate CARDIOVASCULAR MEDICINE TESTING: Electrocardiogram: ATRIAL FIBRILLATION INCOMPLETE RIGHT BUNDLE BRANCH BLOCK NONSPECIFIC ST ABNORMALITY I have personally reviewed the Electrocardiogram. HISTORY Celia Chopra is an 86 year old female with pmhx of: 1. 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 (I07.1) Severe tricuspid regurgitation 4. (I10) Essential hypertension 5. (I48.20) Atrial fibrillation, chronic (HCC) ASSESSMENT: Prior to TMVR, she complained of progressively worsening IGLESIAS and edema MARLYN 09/19/21: EF = 60 5% Bioprosthetic prosthetic mitral valve (size #27). There is mild (1+) mitral valve regurgitation. There is severe mitral stenosis caused by prosthetic thickening/calcification and restricted opening. The peak gradient is 25 mmHg and the mean gradient is 12 mmHg. There is severe (4+) tricuspid valve regurgitation. On 12/12/21, she underwent Successful transcatheter mitral vtrws-nu-bqlpg replacement with a 26 mm Marina Nela 3 transcatheter heart valve Post Procedure Echo: EF = 65 5% Post mitral valve replacement. Marina Nela 3 prosthetic mitral valve (size #26). There is no mitral valve regurgitation. The peak gradient is 15 mmHg and the mean gradient is 3 mmHg There is severe (4+) tricuspid valve regurgitation caused by annular dilatation. There is moderate (2+ - 3+) pulmonic valve regurgitation. Estimated right ventricular systolic pressure is likely underestimated due to a weak or incomplete tricuspid regurgitation signal and is, at least, 89 mmHg consistent with severe pulmonary hypertension. Status post LAMPOON and transcatheter mitral valve in valve procedure using size 26 Marina Nela valve. Post EKG atrial fibrillation, known ICRBBB Plan per Structural Team: ASA 81 mg daily,start new med, continue til INR is therapeutic DAPT no Anticoagulation restart home warfarin 2mg on 12/12 Post procedural antibiotic. Keflex 500mg bid for 5 days and the SBE prophylaxis. Pt instructed to continue home meds as before. Pt ambulating in the alva,Pt's breathing improved. Pt was hemodynamic stable and able to be discharge home. Today 12/31/21, she presents doing well. She has noticed she is no longer short of breath and has more energy. INR 12/24/21: therapeutic at 2.0, aspirin 81 mg stopped Discussion regarding attending cardiac rehab, order placed. Right groin access site well healed. She denies chest pain, shortness of breath, dyspnea on exertion, orthopnea, PND, palpitations, lightheadedness, syncope, claudication, cough and wheezing. IMPRESSION/PLAN: Aspirin: 81 mg daily until INR therapeutic DAPT: None AC: Home Wafarin resumed Beta Cecilia: Lopressor 50 mg BID ACEI/ARB/ARNI: None SGLT2 inhibitor: None Diuretic: Bumex 2 mg daily Aldosterone antagonist: None Statin: Lipitor 20 mg Device therapy: None Follow up/Disposition: Follow up 02/07/22 I spent a total of 45 minutes on the date of the service which included preparing to see the patient, [id number]-br-jwzv patient care, completing clinical documentation, performing a medically appropriate examination, counseling and educating the patient/family/caregiver, ordering medications, tests, or p rocedures and communicating results to the patient/family/caregiver. Jesika Martin PA-C documented in this encounterT[facility]04-03-2022 Miscellaneous Notes* Telephone Encounter - Bharath Barragan APRN.CNP - 12/16/2021 4:01 PM EDT HEART [facility] [place] Contact Center Inbound Phone Encounter DATE of SERVICE: 12/16/2021 TIME of SERVICE: 4:02 PM Status: Non-urgent, needs attention Service/Provider: Beverly Conrad MD Reason for call: Pain Contact information: Mrs. Chopra Resolution: Routine referral to PCP/Product Development Actuary, Medication adjustment and Reinforced education Comments: patient called again reporting tylenol did not help. Unable to take NSAIDS due to CKD andon coumadin. Refused prescription for muscle relaxant. Instructed to see PCP tomorrow morning if the pain persists. Instructed to continue RTC tylenol. Mrs. Chopra understood and agreed with the plan. Bharath Barragan APRN.CNP Date of Resolution: 12/16/2021 Time of Resolution 4:02 PM documented in this encounterT[facility]04-03-2022 Miscellaneous Notes* Telephone Encounter - Bharath Barragan APRN.CNP - 12/16/2021 12:27 PM EDT [facility] [place] Contact Center Inbound Phone Encounter DATE of SERVICE: 12/16/2021 TIME of SERVICE: 12:28 PM Status: Non-urgent, needs attention Service/Provider: Beverly Conrad MD Reason for call: Pain Contact information: Celia Chopra Resolution: Medication adjustment and Reinforced education Comments: patient called to report continuous back pain. She called yesterday and was instructed totake tylenol 1000mg q6h as needed. She had a dose last night at bedtime and reports that she slept all night. Upon waking up, she reports that the pain is back. Pain is on her back right rib cage. Denies chest pain, SOB or dizziness. Denies pain anywhere else. Denies urinary symptoms. Patient thinks nothing is helping with the pain. Explained that tylenol likely helped with the pain since she was able to sleep all night long without interruptions from pain. Instructed to take another dose now and call again in 2 hours if the pain persists. Patient understood and agreed with the plan. Bharath Barragan APRN.CNP Date of Resolution: 12/16/2021 Time of Resolution 12:28 PM documented in this encounterT[facility]04-02-2022 Miscellaneous Notes* Telephone Encounter - Marcella Goss APRN.CNP - 12/15/2021 11:15 AM EDT [facility] Contact Center Inbound Phone Encounter DATE of SERVICE: 12/15/2021 TIME of SERVICE: 10:07 AM Status: FYToni Service/Provider: Beverly Conrad MD Reason for call: Pain Contact information: Celia [phone] Resolution: Sent to [facility] Comments: Pt reports right back pain near her rib cage. Pt denies any other symptoms, denies pain radiating to any other areas. Pt advised she can take 1000mg tylenol every 6 hours as needed. Pt has lidocaine patch at home she will apply to the area. Okay to use heat/cold applications to help with discomfort. Pt denies any urinary issues. Pt advised to call back with any other questions or concerns. Pt voiced understanding. Marcella Goss APRN.CNP Date of Resolution: 12/15/2021 Time of Resolution 10:07 AM documented in this encounterTog[facility] Center03-29-2022 Instructions* Patient Instructions* Ed Barlow APRN.CNP - 12/11/2021 2:20 PM EDT Patient is scheduled for TMVR Valve in Valve (S3) w/ Lampadriano on 12/12/[address] Polanco and will report to the J1-2 lead front end developer at 06:30am. Asked to stop at J1- 1 lead front end developer after completing appointments today to register. Instructed to refrain from eating or drinking after midnight tonight except for small sips of waterfor medications. Reviewed medications with patient. Okay for patient to take benadryl, Prednisone, metoprolol, and famotidine with small sips of water the morning of the procedure. You can also use your inhaler. Please do not take warfarin, bumetanide, potassium, or any other supplements/vitamins the morning of your procedure. You can resume them after your procedure once the discharging providerhas determined it is safe to do so. Explained to patient the need to use the Hibiclens soap and Listerine mouth wash the night before and morning of the procedure. Ed Barlow APRN.JENNIFER documented in this encounterTogus [facility]03-29-2022 History of Present illness Narrative* Ed Barlow APRN.CNP - 12/11/2021 2:00 PM EDT Images from the original note were not included. [facility] Department of Cardiovascular Medicine SECTION OF INTERVENTIONAL CARDIOLOGY OUTPATIENT VISIT DATE December 11, 2021 OUTPATIENT VISIT TYPE ESTABLISHED PRIMARY CARE PHYSICIAN: Haresh Lino ([facility]) [address] [place] [address] REFERRING PHYSICIAN: Ed Barlow [address] [facility] [id number] CHIEF COMPLAINT: Patient presents with: Valvular Heart Disease HISTORY OF PRESENT ILLNESS: Ms. Chopra is a 86 year old female who presents today for a preoperative visit for TMVR valve in valve w/ Ayla 12/12/[address] Polanco at 6:30. She has a Hx rheumatic heart disease s/p MVR (CE #27)/MAZE,/single vessel CABG (left radial to the diagonal branch of the LAD) in [address] [facility]. She is experiencing increasing IGLESIAS and her echo from 08/2021 demonstrated severe w/ low flow gradient and AV area of 0.86, bioP MS (PK 25, MN 12), and severe TR w/ moderate RV dysfunction, and an RVSP 90mmHg. She endorses BLE edema and IGLESIAS. Denies recent ED visit/hospitalizations, chest pain, orthopnea, palpitations, syncope, fevers, chills, nausea, vomiting, bleeding, vision changes, skin lesions, recent infections. PAST CARDIAC HISTORY: See HPI PAST MEDICAL HISTORY Diagnosis Date Rheumatic fever Rheumatic mitral valve disease PAST SURGICAL HISTORY Procedure Laterality Date PAST SURGICAL HISTORY OF 04/2013 CABGx1/MVR/MAZE SOCIAL HISTORY Social History Tobacco Use Smoking status: Former Smoker Packs/day: 1.50 Years: 47.00 Pack years: 70.50 Quit date: 2000 Years since quittin.2 Smokeless tobacco: Never Used Substance Use Topics Alcohol use: Yes Alcohol/week: 14.0 standard drinks Types: 14 Glasses of Wine (5oz) per week Drug use: Not on file No family history on file. ALLERGIES: ALLERGIES Allergen Reactions Iodine Other: See Comments Per pt. was used at the dentist and she developed redness of face. This was quite awhile ago. Percodan [Oxycodone* Other: See Comments Per pt caused hallucinations. MEDICATIONS: predniSONE (DELTASONE) 50 mg Take 1 tablet by mouth every 6 hours for 3 doses. For prevention of contrast allergy given 13 hrs, 7 hrs, and 1 hr prior to procedure. sodium chloride 0.9 %, flush, (BD POSIFLUSH) syringe Inject 2-10 mL intravenously as directed. For Echo procedure ALBUTEROL INHALATION Take 2 Puffs by mouth as needed. Docusate Sodium (STOOL SOFTENER) 250 mg capsule Take 250 mg by mouth once daily. diphenhydrAMINE (BENADRYL) 50 mg capsule Take 1 capsule by mouth as directed for 1 dose. one (1) hour prior to heart catheterization. Please repeat instructions prior to CT scan. sodium chloride 0.9 %, flush, (BD POSIFLUSH) syringe Inject 2-10 mL intravenously as directed. For Echo procedure atorvastatin (LIPITOR) 20 mg tablet Take 20 mg by mouth daily at bedtime. bumetanide (BUMEX) 2 mg tablet Take 2 mg by mouth once daily. metoprolol tartrate, short acting, (LOPRESSOR) 50 mg tablet twice daily. potassium chloride ER (K-DUR, KLOR-CON) 10 mEq tablet warfarin (COUMADIN) 2 mg tablet zolpidem (AMBIEN) 10 mg Take 10 mg by mouth daily at bedtime. famotidine (PEPCID AC) 10 mg tablet Take 10 mg by mouth twice daily. vit A/vit C/vit E/zinc/copper (PRESERVISION AREDS ORAL) Take by mouth. multivit-min/iron/folic/lutein (CENTRUM SILVER WOMEN ORAL) Take by mouth. diphenhydrAMINE (BENADRYL) 50 mg capsule Take 1 capsule by mouth as directed for 1 dose. one (1) hour prior to procedure. diphenhydrAMINE (BENADRYL) 50 mg capsule Take 1 capsule by mouth as directed for 1 dose. one (1) hour prior to procedure REVIEW OF SYSTEMS: POSITIVES IN BOLD PAIN ASSESSMENT: complaints of acute or chronic pain GENERAL: fevers, chills, night sweats, weight gain or loss HEENT: changes in vision, hearing, nose bleeds, or bleeding gums NECK: neck pain, stiffness, or swelling, or swollen lymph nodes RESPIRATORY: shortness of breath, IGLESIAS, cough, wheezing, or hemoptysis CARDIOVASCULAR: chest pain, palpitations, claudication, orthopnea, or edema GI: difficulty swallowing, nausea, vomiting, diarrhea, constipation, or melena : frequency, urgency, or burning, and hematuria MUSCULOSKELETAL: joint pain, swelling, or stiffness SKIN: ashes, lesions, or tears PSYCH: sleep disturbance, mood disorder, or recent psychosocial stressors HEMATOLOGY/LYMPHOLOGY: prolonged bleeding or easy bruising ENDOCRINE: heat or cold intolerance, polydipsia or polyphagia NEURO: syncope, seizures, or numbness or tingling of hands or feet' PHYSICAL EXAMINATION: BP 141/83 Pulse 71 Ht 5' 6 (1.68m) Wt 155 lb (70.3kg) SpO2 97% BMI 25.03 kg/(m^2). General: No acute distress, pleasant mood and cooperative; ambulates without assistive devices Skin: warm, dry, and intact; no rashes or lesions noted Neck: No JVD or carotid bruits, carotids have normal upstroke Lungs: Breath sounds clear throughout, no crackles or wheezing Heart: Irregular rhythm, + murmur, 1+ BLE edema noted Abdomen: Soft nontedner, +BSx4 Extremities: Distal pulses intact, MAEx4 Musculoskeletal: No deformities Neurologic/Psychiatric: Oriented to time, place & person and no gross focal neurologic deficits CARDIOVASCULAR MEDICINE TESTING: EC12/11/21 Diagnosis: ATRIAL FIBRILLATION INCOMPLETE RIGHT BUNDLE BRANCH BLOCK ST & INFERIOR T WAVE ABNORMALITY Right Heart Cath: General: RA Mean 27.00 RV 81.00/25.00 PA 88.00/32.00 (53.00) PCWP A Wave 36.00 PCWP V Wave 59.00 PCWP Mean 42.00 Cardiac Outputs: ARTEM CO 3.60 ARTEM CI 2.07 Diagnostic LHC Impression: 1) Elevated biventricular filling pressures. 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 There was a prior radial bypass graft to this diag that is now occluded. Otherwise no significant epicardial CAD. MARLYN: 09/19/21 CONCLUSIONS: - Exam indication: Evaluation of valvular structure and function to assess suitability for, and assist in plannin of, an intervention - The left ventricle is small. Left ventricular systolic function is normal. EF = 60 5% (visual est.) - The right ventricle is severely dilated. - The left atrial cavity is dilated. Partial ligation of SUE noted ; small residual pouch is seen. - The right atrial cavity is severely dilated. - Bioprosthetic prosthetic mitral valve (size #27). There is mild (1+) mitral valve regurgitation. There is severe mitral stenosis caused by prosthetic thickening/calcification and restricted opening. The peak gradient is 25 mmHg and the mean gradient is 12 mmHg. - There is severe (4+) tricuspid valve regurgitation. - Estimated right ventricular systolic pressure is 66 mmHg plus right atrial pressure (but may be underestimated due to severe TR). Estimated right atrial pressure is not included as the IVC was not seen. - Agitated saline contrast study appears negative; there is no shunt flow detected across the intra atrial septum by color Doppler or bubbles. Gradients are averaged d/t A.fib/beat to beat variability. Echo: 09/10/21 CONCLUSIONS: - Technically difficult exam due to body habitus. - Exam indication: Routine surveillance of prosthetic valve (>3yrs) - The left ventricle is small. Left ventricular systolic function is normal. EF = 63 5% (2D biplane) Left ventricular diastolic function was not evaluated due to mitral valve surgery. - The right ventricle is severely dilated. Right ventricular systolic function is moderately decreased. - The left atrial cavity is moderately dilated. - The right atrial cavity is severely dilated. - Post mitral valve replacement. bioprosthetic prosthetic mitral valve (size #27). There is no mitral valve regurgitation. The peak gradient is 32 mmHg and the mean gradient is 16 mmHg. Transmitral gradient obtained at 68bpm. Likely signficant Prosthetic valve dysfunction [ stenosis ]. - There is severe (3+ - 4+) tricuspid valve regurgitation. - There is moderate (2+) pulmonic valve regurgitation. - Estimated right ventricular systolic pressure is likely underestimated due to a weak or incomplete tricuspid regurgitation signal and is, at least, 90 mmHg consistent with severe pulmonary hypertension. Estimated right atrial pressure is 15 mmHg based on IVC assessment. - There is no patent foramen ovale as detected by Doppler. - There is a mobile echodensity located in the LVOT best seen in clip 06/27. - The patient has not had a prior CC echocardiographic exam for comparison. Chest Xray: 12/11/21 In process Hemoglobin (g/dL) Date Value 12/11/2021 13.3 11/02/2021 13.6 Hematocrit (%) Date Value 12/11/2021 40.6 11/02/2021 42.5 WBC (k/uL) Date Value 12/11/2021 8.04 11/02/2021 6.51 Glucose (mg/dL) Date Value 12/11/2021 95 11/02/2021 129 Potassium (mmol/L) Date Value 12/11/2021 3.4 11/02/2021 3.6 Sodium (mmol/L) Date Value 12/11/2021 142 11/02/2021 142 Chloride (mmol/L) Date Value 12/11/2021 100 11/02/2021 100 CO2 (mmol/L) Date Value 12/11/2021 31 11/02/2021 31 Creatinine (mg/dL) Date Value 12/11/2021 1.38 11/02/2021 1.00 BUN (mg/dL) Date Value 12/11/2021 35 11/02/2021 31 Anion Gap (mmol/L) Date Value 12/11/2021 11 11/02/2021 11 Calcium (mg/dL) Date Value 11/02/2021 10.1 Calcium, Total (mg/dL) Date Value 12/11/2021 9.9 Protein, Total (g/dL) Date Value 12/11/2021 6.5 11/02/2021 7.4 Albumin (g/dL) Date Value 12/11/2021 4.2 11/02/2021 4.3 Bilirubin, Total (mg/dL) Date Value 12/11/2021 1.4 11/02/2021 1.0 Alkaline Phosphatase (U/L) Date Value 12/11/2021 82 11/02/2021 106 AST (U/L) Date Value 12/11/2021 22 11/02/2021 23 ALT (U/L) Date Value 12/11/2021 10 11/02/2021 11 NT Pro BNP Date Value Ref Range Status 12/11/2021 2,278 (H) <450 pg/mL Final I have personally reviewed the Electrocardiogram, Chest X-ray, Laboratory Testing, Echocardiogram, Cardiac Catheterization, and MARLYN. 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 Chopra is a 86 year old female who presents today for a preoperative visit for TMVR valve in valve (S3) w/ Lampoon 12/12/[address] Polanco at 6:30. She has a Hx rheumatic heart disease and AF s/p MVR (CE #27)/MAZE,/single vessel CABG (left radial to the diagonal branch of the LAD) in [address] [facility]. She is experiencing increasing IGLESIAS and her echo from 08/2021 demonstrated severe w/ low flow gradient and AV area of 0.86, bioP MS (PK 25, MN 12), and severe TR w/ moderate RV dysfunction, and an RVSP 90mmHg. Cre/BUN increased since Sep. Patient already took Bumex and potassium today. Will hold both tomorrow. Weight stable, Chest Xray without significant fluid or consolidation. Reports stable urination with Bumex. Not sigifcantly FVO upon exam. To be reviewed with Dr. Ploanco. Patient is scheduled for TMVR Valve in Valve (S3) w/ Lampoon on 12/12/[address] Polanco and will report to the J1-2 lead front end developer at 06:30. Asked to stop at J1-1 lead front end developer after completing appointments today to register. Instructed to refrain from eating or drinking after midnight tonight except for small sips of waterfor medications. Reviewed medications with patient. Okay for patient to take benadryl, Prednisone, metoprolol, and famotidine with small sips of water the morning of the procedure. You can also use your inhaler. Please do not take warfarin, bumetanide, potassium, or any other supplements/vitamins the morning of your procedure. You can resume them after your procedure once the discharging providerhas determined it is safe to do so. Explained to patient the need to use the Hibiclens soap and Listerine mouth wash the night before and morning of the procedure. NYHA FC II. NT Pro-BNP 2,278 . Dental clearance: obtained 07/24/21 scanned into [facility]-Gas PPM: n/a Anticoagulation: warfarin, on hold Contrast Allergy: yes, premedication Rx provided Coronavirus Testing: pending Ed Barlow APRN.FILM HISTORIAN [facility] History of Present illness Narrative* Aiden Cummins MD - 12/11/2021 1:00 PM EDT Images from the original note were not included. Cardiothoracic Anesthesiology Preoperative Assessment Service Date: 12/11/2021 Service Time: 9:36 AM Primary Care Physician: Haresh Lino DO Subjective Scheduled procedure: mitral valve surgery Surgeon: Dr. Collin Yang Keysha is a 86 year old female who is scheduled for mitral valve surgery. My final recommendation will be communicated back to the requesting physician by way of shared medical record or letter. HPI: This patient is an 86 year old F with a past history of rheumatic fever as a child. She is s/pMVR in 2013, CABGx1 (L radial artery to diagonal) and MAZE procedure. Her current symptoms include dyspnea on exertion and fatigue. Her other history includes CAD, HTN, and atrial fibrillation. Review no known heparin intolerance anticoagulant/antiplatelet medication(s) - Patient is taking anticoagulant and/or antiplatelet medication with plans of stopping medication on 12/05/21 no non-cardiac IEDs present no known esophageal disorders blood transfusion consented -. No resulted type & screen to review COVID-19 Immunization Status COVID-19 VACCINE (Series Information) Completed 08/07/2021 Imm Admin: COVID-19 vaccine, full dose (MODERNA) 11/14/2020 Imm Admin: COVID-19 vaccine, full dose (MODERNA) 10/17/2020 Imm Admin: COVID-19 vaccine, full dose (MODERNA) The patient has the following: ACTIVE PROBLEM LIST Rheumatic Mitral Stenosis PAST MEDICAL HISTORY Diagnosis Date Rheumatic fever Rheumatic mitral valve disease PAST SURGICAL HISTORY Procedure Laterality Date PAST SURGICAL HISTORY OF 04/2013 CABGx1/MVR/MAZE No family history on file. Social History Tobacco Use Smoking status: Former Smoker Packs/day: 1.50 Years: 47.00 Pack years: 70.50 Quit date: 2000 Years since quittin.2 Smokeless tobacco: Never Used Substance Use Topics Alcohol use: Yes Alcohol/week: 14.0 standard drinks Types: 14 Glasses of Wine (5oz) per week Drug use: Not on file Prior to Admission medications as of 11/02/21 0835 Medication Sig Last Dose Taking mupirocin (BACTROBAN) 2 % ointment Apply a small amount in each nostril using a cotton swab twice the day before surgery and once the morning of surgery. diphenhydrAMINE (BENADRYL) 50 mg capsule Take 1 capsule by mouth as directed for 1 dose. one (1) hour prior to procedure sodium chloride 0.9 %, flush, (BD POSIFLUSH) syringe Inject 2-10 mL intravenously as directed. For Echo procedure ALBUTEROL INHALATION Take 2 Puffs by mouth as needed. Docusate Sodium (STOOL SOFTENER) 250 mg capsule Take 250 mg by mouth once daily. diphenhydrAMINE (BENADRYL) 50 mg capsule Take 1 capsule by mouth as directed for 1 dose. one (1) hour prior to heart catheterization. Please repeat instructions prior to CT scan. sodium chloride 0.9 %, flush, (BD POSIFLUSH) syringe Inject 2-10 mL intravenously as directed. For Echo procedure Patient not taking: Reported on 11/02/2021 atorvastatin (LIPITOR) 20 mg tablet Take 20 mg by mouth daily at bedtime. bumetanide (BUMEX) 2 mg tablet Take 2 mg by mouth once daily. TRELEGY ELLIPTA 100-62.5-25 mcg metoprolol tartrate, short acting, (LOPRESSOR) 50 mg tablet potassium chloride ER (K-DUR, KLOR-CON) 10 mEq tablet warfarin (COUMADIN) 2 mg tablet zolpidem (AMBIEN) 10 mg Take 10 mg by mouth daily at bedtime. famotidine (PEPCID AC) 10 mg tablet Take 10 mg by mouth twice daily. vit A/vit C/vit E/zinc/copper (PRESERVISION AREDS ORAL) Take by mouth. Patient not taking: Reported on 11/02/2021 multivit-min/iron/folic/lutein (CENTRUM SILVER WOMEN ORAL) Take by mouth. No medication comments found. ALLERGIES Allergen Reactions Iodine Other: See Comments Per pt. was used at the dentist and she developed redness of face. This was quite awhile ago. Percodan [Oxycodone* Other: See Comments Per pt caused hallucinations. Objective Pain Assessment: Vitals: There were no vitals taken for this visit. Diagnostic tests reviewed for today's visit: Lab Value Units Date High Low HB 13.6 g/dL 11/02/2021 15.5 11.5 HCT 42.5 % 11/02/2021 46.0 36.0 WBC 6.51 k/uL 11/02/2021 11.00 3.70 PLT 204 k/uL 11/02/2021 400 150 NA 142 mmol/L 11/02/2021 144 136 K 3.6 mmol/L 11/02/2021 5.1 3.7 GLUC 129 mg/dL 11/02/2021 99 74 BUN 31 mg/dL 11/02/2021 21 7 CREAT 1.00 mg/dL 11/02/2021 0.96 0.58 PTSEC 25.2 sec 11/02/2021 13.0 9.7 INR 1.4 no uni* 11/05/2021 1.2 0.8 INR 2.5 no uni* 11/02/2021 1.3 0.9 APTT No results within date range. ALT 11 U/L 11/02/2021 38 7 AST 23 U/L 11/02/2021 35 13 TBILI 1.0 mg/dL 11/02/2021 1.3 0.2 TSH No results within date range. Lab Value Units Date High Low HCGQT No results within date range. UHCG No results within date range. HCG, BODY* No results within date range. Lab Value Units Date High Low ABORHD No results within date range. ABSCREEN No results within date range. No results found for: HBA1C Recent Results (from the past 8760 hour(s)) XR CHEST 2V FRONTAL/LAT Collection Time: 11/02/21 11:44 AM Impression IMPRESSION: No acute radiographic findings in the chest. [employer]: NICK Transcribe Date/Time: Nov 02 2021 12:28P Dictated by : GLADIS SILVERMAN MD This examination was interpreted and the report reviewed and electronically signed by: GLADIS SILVERMAN MD on Nov 02 2021 12:29PM EST ECG COMPLETE Collection Time: 11/02/21 11:36 AM Impression ATRIAL FIBRILLATION INCOMPLETE RIGHT BUNDLE BRANCH BLOCK ST & ANTERIOR T WAVE ABNORMALITY ABNORMAL ECG Confirmed by DOUG JOHNSON MD ([id number]) on 11/12/2021 7:43:53 AM ECHO TRANSESOPHAGEAL Collection Time: 09/19/21 12:58 PM Impression CONCLUSIONS: - Exam indication: Evaluation of valvular structure and function to assess suitability for, and assist in plannin of, an intervention - The left ventricle is small. Left ventricular systolic function is normal. EF = 60 5% (visual est.) - The right ventricle is severely dilated. - The left atrial cavity is dilated. Partial ligation of SUE noted ; small residual pouch is seen. - The right atrial cavity is severely dilated. - Bioprosthetic prosthetic mitral valve (size #27). There is mild (1+) mitral valve regurgitation. There is severe mitral stenosis caused by prosthetic thickening/calcification and restricted opening. The peak gradient is 25 mmHg and the mean gradient is 12 mmHg. - There is severe (4+) tricuspid valve regurgitation. - Estimated right ventricular systolic pressure is 66 mmHg plus right atrial pressure (but may be underestimated due to severe TR). Estimated right atrial pressure is not included as the IVC was not seen. - Agitated saline contrast study appears negative; there is no shunt flow detected across the intra atrial septum by color Doppler or bubbles. Gradients are averaged d/t A.fib/beat to beat variability. no sig by planimetry [1.6 cm sq] estimated PAP is at least 76 mm hg assuming RAP of 10 mm hg; - Exam was compared with the prior CC echocardiographic exam performed on 09/10/2021. echo density in LVOT not seen in this MARLYN * * * Final (Updated) * * * ECHO Collection Time: 09/10/21 2:01 PM Impression CONCLUSIONS: - Technically difficult exam due to body habitus. - Exam indication: Routine surveillance of prosthetic valve (>3yrs) - The left ventricle is small. Left ventricular systolic function is normal. EF = 63 5% (2D biplane) Left ventricular diastolic function was not evaluated due to mitral valve surgery. - The right ventricle is severely dilated. Right ventricular systolic function is moderately decreased. - The left atrial cavity is moderately dilated. - The right atrial cavity is severely dilated. - Post mitral valve replacement. bioprosthetic prosthetic mitral valve (size #27). There is no mitral valve regurgitation. The peak gradient is 32 mmHg and the mean gradient is 16 mmHg. Transmitral gradient obtained at 68bpm. Likely signficant Prosthetic valve dysfunction [ stenosis ]. - There is severe (3+ - 4+) tricuspid valve regurgitation. - There is moderate (2+) pulmonic valve regurgitation. - Estimated right ventricular systolic pressure is likely underestimated due to a weak or incomplete tricuspid regurgitation signal and is, at least, 90 mmHg consistent with severe pulmonary hypertension. Estimated right atrial pressure is 15 mmHg based on IVC assessment. - There is no patent foramen ovale as detected by Doppler. - There is a mobile echodensity located in the LVOT best seen in clip 10/. - The patient has not had a prior CC echocardiographic exam for comparison. * * * Final * * * Cardiac Cath 11/05/2021 Impression: 1) Elevated biventricular filling pressures. 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 There was a prior radial bypass graft to this diag that is now occluded. Otherwise no significant epicardial CAD. Recommended Treatment: Valve repair / replacement. Aggressive medical Rx for CAD. Assessment No problem-specific Assessment & Plan notes found for this encounter. ANESTHESIA FINDINGS: Intubation History: No history of difficult intubation. No abnormal airway history Significant Anesthesia Considerations: Airway History: No history of difficult airway No abnormal airway history Prepared for Surgery: optimally prepared for surgery. The Following Tests/Procedures Have Been Initiated: Orders Placed This Encounter mupirocin (BACTROBAN) 2 % ointment Sig: Apply a small amount in each nostril using a cotton swab twice the day before surgery and once the morning of surgery. Dispense: 22 g Refill: 0 Order Comments: Supply patient with Q-tips and instruction sheet ASA Class: 4 Planned Anesthetic: general I - PHYSICAL EVALUATION AIRWAY Tracheostomy tube not present Mallampati: II. TM distance: >3 FB. Neck ROM: full ROM without neurological symptoms. Mouth opening: adequate. Short neck: no. Thick neck: no DENTAL Dental findings: teeth intact and missing tooth/teeth. II - ANESTHESIA PLAN ASA Score: 4 Anesthetic Plan: general Airway type: ETT Informed Consent Anesthetic risks, benefits, alternatives, personnel and consent discussed: yes. Patient / Responsible [employer] Party agrees to proceed: yes Patient / Surrogate agrees to blood products: Yes Instructions Given to Patient: Instructions located in the after visit summary. Patient given verbal and written preop instructions and voices comprehension and compliance. Signature: Robert Cerna MD Patient Name: Celia Chopra Date: December 11, 2021 Time: 9:36 AM Pager/Contact #: [facility] History of Past illness Narrative* Problem Noted Date Resolved Date Nonrheumatic aortic valve stenosis 11/07/2021 11/07/2021 documented as of this encounter (statuses as of 12/11/2021) [facility] of Past illness Narrative* Problem Noted Date Resolved Date Nonrheumatic aortic valve stenosis 11/07/2021 11/07/2021 documented as of this encounter (statuses as of 12/11/2021) [facility] of Past illness Narrative* Problem Noted Date Resolved Date Nonrheumatic aortic valve stenosis 11/07/2021 11/07/2021 documented as of this encounter (statuses as of 12/12/2021) [place] [id number] History of Past illness Narrative* Problem Noted Date Resolved Date Nonrheumatic aortic valve stenosis 11/07/2021 11/07/2021 documented as of this encounter (statuses as of 12/15/2021) [address]23-[address]22 History of Past illness Narrative* Problem Noted Date Resolved Date Nonrheumatic aortic valve stenosis 11/07/2021 11/07/2021 documented as of this encounter (statuses as of 12/16/2021) [address]23-[address]22 History of Past illness Narrative* Problem Noted Date Resolved Date Nonrheumatic aortic valve stenosis 11/07/2021 11/07/2021 documented as of this encounter (statuses as of 12/31/2021) [facility] Narrative* Problem Noted Date Resolved Date Nonrheumatic aortic valve stenosis 11/07/2021 11/07/2021 documented as of this encounter (statuses as of 02/07/2022) [address]22 History of Past illness Narrative* Problem Noted Date Resolved Date Nonrheumatic aortic valve stenosis 11/07/2021 11/07/2021 documented as of this encounter (statuses as of 03/02/2022) [facility] Narrative* Problem Noted Date Resolved Date Nonrheumatic aortic valve stenosis 11/07/2021 11/07/2021 documented as of this encounter (statuses as of 03/11/2022) [address]22 History of Past illness Narrative* Problem Noted Date Resolved Date Nonrheumatic aortic valve stenosis 11/07/2021 11/07/2021 documented as of this encounter (statuses as of 11/20/2022) [address]23-[address]22 History of Past illness Narrative* Problem Noted Date Diagnosed Date Resolved Date Nonrheumatic aortic valve stenosis 11/07/2021 11/07/2021 documented as of this encounter (statuses as of 04/09/2023) [address]22 History of Past illness Narrative* Problem Noted Date Diagnosed Date Resolved Date Nonrheumatic aortic valve stenosis 11/07/2021 11/07/2021 documented as of this encounter (statuses as of 04/09/2023) [address]22 History of Past illness Narrative* Problem Noted Date Diagnosed Date Resolved Date Nonrheumatic aortic valve stenosis 11/07/2021 11/07/2021 documented as of this encounter (statuses as of 05/03/2023) [facility] Narrative* Problem Noted Date Diagnosed Date Resolved Date Nonrheumatic aortic valve stenosis 11/07/2021 11/07/2021 documented as of this encounter (statuses as of 05/15/2023) [facility] Narrative* Problem Noted Date Diagnosed Date Resolved Date Nonrheumatic aortic valve stenosis 11/07/2021 11/07/2021 documented as of this encounter (statuses as of 05/22/2023) [facility] Narrative* Problem Noted Date Diagnosed Date Resolved Date Nonrheumatic aortic valve stenosis 11/07/2021 11/07/2021 documented as of this encounter (statuses as of 05/22/2023) [facility] Narrative* Problem Noted Date Diagnosed Date Resolved Date Nonrheumatic aortic valve stenosis 11/07/2021 11/07/2021 documented as of this encounter (statuses as of 06/07/2023) [facility] Narrative* Problem Noted Date Diagnosed Date Resolved Date Nonrheumatic aortic valve stenosis 11/07/2021 11/07/2021 documented as of this encounter (statuses as of 08/06/2023) [facility] Narrative* Problem Noted Date Diagnosed Date Resolved Date Nonrheumatic aortic valve stenosis 11/07/2021 11/07/2021 documented as of this encounter (statuses as of 08/14/2023) [facility] Narrative* Problem Noted Date Diagnosed Date Resolved Date Nonrheumatic aortic valve stenosis 11/07/2021 11/07/2021 documented as of this encounter (statuses as of 08/14/2023) [facility] Narrative* Problem Noted Date Diagnosed Date Resolved Date Nonrheumatic aortic valve stenosis 11/07/2021 11/07/2021 documented as of this encounter (statuses as of 08/14/2023) [address]22 History of Past illness Narrative* Problem Noted Date Diagnosed Date Resolved Date Nonrheumatic aortic valve stenosis 11/07/2021 11/07/2021 documented as of this encounter (statuses as of 08/14/2023) [facility] Narrative* Problem Noted Date Diagnosed Date Resolved Date Nonrheumatic aortic valve stenosis 11/07/2021 11/07/2021 documented as of this encounter (statuses as of 10/17/2023) [facility] Narrative* Problem Noted Date Diagnosed Date Resolved Date Nonrheumatic aortic valve stenosis 11/07/2021 11/07/2021 documented as of this encounter (statuses as of 10/20/2023) [facility] Narrative* Problem Noted Date Diagnosed Date Resolved Date Nonrheumatic aortic valve stenosis 11/07/2021 11/07/2021 documented as of this encounter (statuses as of 10/23/2023) [facility] Narrative* Problem Noted Date Diagnosed Date Resolved Date Nonrheumatic aortic valve stenosis 11/07/2021 11/07/2021 documented as of this encounter (statuses as of 12/02/2023) [facility] Narrative* Problem Noted Date Diagnosed Date Resolved Date Nonrheumatic aortic valve stenosis 11/07/2021 11/07/2021 documented as of this encounter (statuses as of 12/02/2023) [facility]02-23-2022 History of Past illness Narrative* Problem Noted Date Diagnosed Date Resolved Date Nonrheumatic aortic valve stenosis 11/07/2021 11/07/2021 documented as of this encounter (statuses as of 01/04/2024) [facility]09-10-2021 Miscellaneous Notes* Telephone Encounter - Justin Hensley PSS - 05/25/2021 3:40 PM EDT Called patient and LVM to update insurance information. [facility] + Plan note Future Scheduled Tests Laboratory* Lipid Panel 11/20/20 [facility]09-16-2013 Evaluation note* Encounter Date Diagnosis Assessment Notes Treatment Notes Treatment Clinical Notes May, Paroxysmal atrial fibrillation (ICD-10 - I48.0) ECHO: 03/2023 - LVEF = 61 ? 5% (2D 4-ch.) - The right ventricle is dilated. RVSP 56 - MV gradient 27/01 [facility] Other chief complaint+Reason for visit Narrative* Chief Complaint Wellness Wound Recheck Wound Check atrial fib rectal bleeding Referral For Colonoscopy - Bowel Bleed Open Wound INR Follow Up Post Procedure Reason for Visit Benign hypertension with chronic kidney disease, stage III CHF (congestive heart failure) Chronic venous insufficiency Edema of left lower leg History of melanoma Inflammation Traumatic open wound of left lower leg with delayed healing Vitamin D deficiency Wound pain Atrial fibrillation [facility] Work Phone: chief complaint+Reason for visit Narrative* Chief Complaint Wellness Wound Recheck Wound Check atrial fib rectal bleeding Referral For Colonoscopy - Bowel Bleed INR Follow Up Post Procedure Open Wound Reason for Visit Atrial fibrillation Benign hypertension with chronic kidney disease, stage III CHF (congestive heart failure) Chronic venous insufficiency Edema of left lower leg History of melanoma Inflammation Traumatic open wound of left lower leg with delayed healing Vitamin D deficiency Wound pain [facility] Work Phone: chief complaint+Reason for visit Narrative* Chief Complaint Wound Recheck Wound Check atrial fib rectal bleeding Referral For Colonoscopy - Bowel Bleed INR Follow Up Post Procedure INR Follow Up Painless Rectal Bleeding Painless Rectal Bleeding Open Wound INR Follow Up*See TE 3 month follow up Reason for Visit Lower GI bleeding Chronic venous insufficiency ASHD (arteriosclerotic heart disease) Chronic heart failure with preserved ejection fraction (HFpEF) Chronic venous insufficiency Lower GI bleeding Nonrheumatic tricuspid valve regurgitation Obstructive sleep apnea (adult) (pediatric) Chronic atrial fibrillation [facility] Work Phone: chief complaint+Reason for visit Narrative* Chief Complaint Wound Check atrial fib rectal bleeding Referral For Colonoscopy - Bowel Bleed INR Follow Up Post Procedure INR Follow Up Painless Rectal Bleeding Painless Rectal Bleeding INR Follow Up*See TE 3 month follow up Open Wound INR Follow Up see TE pre procedure Reason for Visit Lower GI bleeding ASHD (arteriosclerotic heart disease) Chronic heart failure with preserved ejection fraction (HFpEF) Chronic venous insufficiency Non-healing ulcer of lower leg Obstructive sleep apnea (adult) (pediatric) Chronic atrial fibrillation Chronic venous insufficiency Chronic atrial fibrillation [facility] Work Phone: Chief complaint+Reason for visit Narrative* Chief Complaint INR Follow Up Post P rocedure INR Follow Up Painless Rectal Bleeding Painless Rectal Bleeding INR Follow Up*See TE 3 month follow up INR Follow Up see TE pre procedure Sinuses, Cough, Fever- [phone] INR Follow Up see TE Open Wound INR Follow Up Reason for Visit Lower GI bleeding ASHD (arteriosclerotic heart disease) Chronic heart failure with preserved ejection fraction (HFpEF) Chronic venous insufficiency Non-healing ulcer of lower leg Obstructive sleep apnea (adult) (pediatric) Chronic atrial fibrillation Chronic atrial fibrillation ASHD (arteriosclerotic heart disease) Chronic heart failure with preserved ejection fraction (HFpEF) Acute bronchitis due to other specified organisms Chronic atrial fibrillation Chronic venous insufficiency Chronic atrial fibrillation [facility] Work Phone: Evaluation note* Diagnosis Encounter for preoperative anesthesiology assessment for cardiac surgery- Primary Non-rheumatic mitral valve stenosis Mitral valve disorders 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 [facility] Diagnosis Stenosis of prosthetic mitral valve, subsequent encounter- Primary Rheumatic mitral stenosis Mitral stenosis Severe tricuspid regurgitation Diseases of tricuspid valve Essential hypertension Unspecified essential hypertension Atrial fibrillation, chronic (HCC) Atrial fibrillation KATHERINE (acute kidney injury) (HCC) Acute kidney failure, unspecified Non-rheumatic mitral valve stenosis Mitral valve disorders 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 [facility]* Diagnosis S/P transcatheter mitral valve replacement (TMVR)- Primary [facility]* Diagnosis Stenosis of prosthetic mitral valve, subsequent encounter- Primary Rheumatic mitral stenosis Mitral stenosis Severe tricuspid regurgitation Diseases of tricuspid valve Essential hypertension Unspecified essential hypertension Atrial fibrillation, chronic (HCC) Atrial fibrillation S/P transcatheter mitral valve replacement (TMVR) [facility]* Diagnosis S/P transcatheter mitral valve replacement (TMVR)- Primary Stenosis of prosthetic mitral valve, subsequent encounter Severe tricuspid regurgitation Diseases of tricuspid valve Essential hypertension Unspecified essential hypertension Atrial fibrillation, chronic (HCC) Atrial fibrillation [facility] Diagnosis Mitral valve stenosis, rheumatic- Primary Mitral stenosis Chronic atrial fibrillation (HCC) Atrial fibrillation Hx of maze procedure Personal history of surgery to heart and great vessels, presenting hazards to health History of MVR with cardiopulmonary bypass Personal history of surgery to heart and great vessels, presenting hazards to health Aortic valve stenosis, etiology of cardiac valve disease unspecified Tricuspid valve insufficiency, unspecified etiology Pulmonary HTN (HCC) Other chronic pulmonary heart diseases S/P MVR (mitral valve replacement) Heart valve replaced by other means documented [facility] this encounter [facility] noteNo assessment information availableMar[facility] Work Phone: Evaluation noteNo InformationNort [employer] Other Evaluation note* Diagnosis Mitral valve stenosis, rheumatic- Primary Mitral stenosis Chronic atrial fibrillation (HCC) Atrial fibrillation Hx of maze procedure Personal history of surgery to heart and great vessels, presenting hazards to health History of MVR with cardiopulmonary bypass Personal history of surgery to heart and great vessels, presenting hazards to health Tricuspid valve insufficiency, unspecified etiology Pulmonary HTN (HCC) Other chronic pulmonary heart diseases S/P MVR (mitral valve replacement) Heart valve replaced by other means [facility]* Diagnosis S/P transcatheter mitral valve replacement (TMVR)- Primary [facility]* Diagnosis S/P transcatheter mitral valve replacement (TMVR)- Primary [facility]* Diagnosis IGLESIAS (dyspnea on exertion)- Primary Other dyspnea and respiratory abnormality Severe tricuspid regurgitation Diseases of tricuspid valve [facility]* Diagnosis Severe tricuspid regurgitation- Primary Diseases of tricuspid valve [facility]* Diagnosis Nonrheumatic tricuspid valve regurgitation- Primary Tricuspid valve disorders, specified as nonrheumatic [facility]* Diagnosis Encounter for preprocedural cardiovascular examination- Primary Pre-operative cardiovascular examination Nonrheumatic tricuspid valve regurgitation Tricuspid valve disorders, specified as nonrheumatic Chronic right-sided heart failure (HCC) Congestive heart failure, unspecified IGLESIAS (dyspnea on exertion) Other dyspnea and respiratory abnormality Atrial fibrillation, chronic (HCC) Atrial fibrillation [facility]* Diagnosis Nonrheumatic tricuspid valve regurgitation- Primary Tricuspid valve disorders, specified as nonrheumatic Chronic diastolic heart failure (HCC) Chronic diastolic heart failure Nonrheumatic tricuspid valve regurgitation Tricuspid valve disorders, specified as nonrheumatic [facility]* Diagnosis Nonrheumatic tricuspid valve regurgitation- Primary Tricuspid valve disorders, specified as nonrheumatic Chronic diastolic heart failure (HCC) Chronic diastolic heart failure Permanent atrial fibrillation (HCC) Atrial fibrillation Nonrheumatic tricuspid valve regurgitation Tricuspid valve disorders, specified as nonrheumatic [facility] this [facility]* Diagnosis Encounter for preprocedural cardiovascular examination Pre-operative cardiovascular examination Nonrheumatic tricuspid valve regurgitation Tricuspid valve disorders, specified as nonrheumatic Chronic right-sided heart failure (HCC) Congestive heart failure, unspecified IGLESIAS (dyspnea on exertion) Other dyspnea and respiratory abnormality Atrial fibrillation, chronic (HCC) Atrial fibrillation Nonrheumatic tricuspid valve regurgitation Tricuspid valve disorders, specified as nonrheumatic documented [facility] this [facility]* Diagnosis Onset Date Resolution Status Benign hypertension with chr onic kidney disease, stage III acute CHF (congestive heart failure) acute Chronic venous insufficiency acute Edema of left lower leg acut e History of melanoma acute Inflammation acute Traumatic open wound of left lower leg with delayed healing acute Vitamin D deficiency acute Wound pain acute [facility] Work Phone: Evaluation note* Diagnosis Severe tricuspid regurgitation- Primary Diseases of tricuspid valve Nonrheumatic tricuspid valve regurgitation Tricuspid valve disorders, specified as nonrheumatic ASD (atrial septal defect) Ostium secundum type atrial septal defect documented [facility] this encounter [facility]* Diagnosis Seborrheic keratosis- Primary Lentigines Rash and other nonspecific skin eruption History of malignant melanoma of skin Personal history of malignant melanoma of skin Epidermal inclusion cyst Sebaceous cyst [facility] Diagnosis Onset Date Resolution Status Benign hypertension with chr onic kidney disease, stage III acute CHF (congestive heart failure) acute Chronic venous insufficiency acute Edema of left lower leg acut e History of melanoma acute Inflammation acute Traumatic open wound of left lower leg with delayed healing acute Vitamin D deficiency acute Wound pain acute Atrial fibrillation acute [facility] Work Phone: Evaluation note* Diagnosis Onset Date Resolution Status Atrial fibrillation acute Benign hypertension with chr onic kidney disease, stage III acute CHF (congestive heart failure) acute Chronic venous insufficiency acute Edema of left lower leg acut e History of melanoma acute Inflammation acute Traumatic open wound of left lower leg with delayed healing acute Vitamin D deficiency acute Wound pain acute [facility] Work Phone: evaluation note* Diagnosis Onset Date Resolution Status Lower GI bleeding acute Chronic venous insufficiency acute ASHD (arteriosclerotic heart disease) acute Chronic heart failure with p reserved ejection fraction (HFpEF) acute Chronic venous insufficiency acute Lower GI bleeding acute Nonrheumatic tricuspid valve regurgitation acute Obstructive sleep apnea (adult) (pediatric) acute Chronic atrial fibrillation chronic [facility] Work Phone: evaluation note* Diagnosis Onset Date Resolution Status Lower GI bleeding acute ASHD (arteriosclerotic heart disease) acute Chronic heart failure with p reserved ejection fraction (HFpEF) acute Chronic venous insufficiency acute Non-healing ulcer of lower leg acute Obstructive sleep apnea (adult) (pediatric) acute Chronic atrial fibrillation chronic Chronic venous insufficiency acute Chronic atrial fibrillation [facility] Work Phone: Evaluation note* Diagnosis Onset Date Resolution Status Lower GI bleeding acute ASHD (arteriosclerotic heart disease) acute Chronic heart failure with p reserved ejection fraction (HFpEF) acute Chronic venous insufficiency acute Non-healing ulcer of lower leg acute Obstructive sleep apnea (adult) (pediatric) acute Chronic atrial fibrillation chronic Chronic venous insufficiency acute Chronic atrial fibrillation chronic ASHD (arteriosclerotic heart disease) acute Chronic heart failure with p reserved ejection fraction (HFpEF) acute Acute bronchitis due to other specified organisms noneactive [facility] Work Phone: Evaluation note* Diagnosis Onset Date Resolution Status Lower GI bleeding acute ASHD (arteriosclerotic heart disease) acute Chronic heart failure with p reserved ejection fraction (HFpEF) acute Chronic venous insufficiency acute Non-healing ulcer of lower leg acute Obstructive sleep apnea (adult) (pediatric) acute Chronic atrial fibrillation chronic Chronic venous insufficiency acute Chronic atrial fibrillation chronic ASHD (arteriosclerotic heart disease) acute Chronic heart failure with p reserved ejection fraction (HFpEF) acute Acute bronchitis due to other specified organisms noneactive Chronic atrial fibrillation chronic [facility] Work Phone: Evaluation note* Diagnosis Nonrheumatic tricuspid valve regurgitation- Primary Tricuspid valve disorders, specified as nonrheumatic [facility] Diagnosis Onset Date Resolution Status Lower GI bleeding acute ASHD (arteriosclerotic heart disease) acute Chronic heart failure with p reserved ejection fraction (HFpEF) acute Chronic venous insufficiency acute Non-healing ulcer of lower leg acute Obstructive sleep apnea (adult) (pediatric) acute Chronic atrial fibrillation chronic Chronic atrial fibrillation chronic ASHD (arteriosclerotic heart disease) acute Chronic heart failure with p reserved ejection fraction (HFpEF) acute Acute bronchitis due to other specified organisms noneactive Chronic atrial fibrillation chronic Chronic venous insufficiency acute Chronic atrial fibrillation chronic [facility] Work Phone: Evaluation note* Diagnosis Onset Date Resolution Status ASHD (arteriosclerotic heart disease) acute Chronic heart failure with p reserved ejection fraction (HFpEF) acute Chronic venous insufficiency acute Non-healing ulcer of lower leg acute Obstructive sleep apnea (adult) (pediatric) acute Chronic atrial fibrillation chronic Chronic atrial fibrillation chronic ASHD (arteriosclerotic heart disease) acute Chronic heart failure with p reserved ejection fraction (HFpEF) acute Acute bronchitis due to other specified organisms noneactive Chronic atrial fibrillation chronic Chronic atrial fibrillation chronic Chronic venous insufficiency acute Chronic atrial fibrillation chronic [facility] Work Phone: Evaluation note* Author Gatito Rodriguez [facility] Authored March 01, 2024 3:09 pm Patient positive for constip ation, lower abdominal discomfort, bloating, bowel movements once or twice per week [facility] Work Phone: History general Narrative - Reported* Type Description Date Medical History High risk medication use Medical History Hyperlipidemia type II Medical History Vitamin D deficiency Medical History Menopause Medical History H/O mitral valve replacement Medical History Chronic venous insufficiency Medical History ASHD (arteriosclerotic heart dis ease) Medical History Benign hypertension with chronic kidney disease, stage III Medical History Chronic venous hyper tension (idiopathic) with ulcer of unspecified lower extremity Medical History Lung nodule Medical History Acute post-thoracotomy pain Medical History Hypokalemia Medical History Acute on chronic chiquis stolic CHF (congestive heart failure) Medical History Pulmonary hypertension Medical History Mitral stenosis Medical History Abnormal results of pulmonary fu nction studies Medical History 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 Medical History Cardiac pacemaker Medical History Fatigue Medical History IGLESIAS (dyspnea on exertion) Medical History Essential hypertension Medical History Primary insomnia Medical History TRAVIS (generalized anxiety disorde r) Medical History Elevated TSH Medical History Gastroesophageal ref lux disease with esophagitis without hemorrhage Surgical History TAVR, PERCUTANEOUS 2021 Surgical History CARDIAC CATHETERIZATION, COMBIN ED RIGHT AND LEFT HEART 2021 Surgical History MITRAL VALVE REPLACEMENT 2012 Surgical History CABG X1 2012 Surgical History MAZE PROCEDURE Hospitalization History SEE SURGICAL HX [facility] Other History general Narrative - Reported* Type Description Date Medical History High risk medication use Medical History Hyperlipidemia type II Medical History Vitamin D deficiency Medical History Menopause Medical History H/O mitral valve replacement Medical History Chronic venous insufficiency Medical History ASHD (arteriosclerotic heart dis ease) Medical History Benign hypertension with chronic kidney disease, stage III Medical History Chronic venous hyper tension (idiopathic) with ulcer of unspecified lower extremity Medical History Lung nodule Medical History Acute post-thoracotomy pain Medical History Hypokalemia Medical History Acute on chronic chiquis stolic CHF (congestive heart failure) Medical History Pulmonary hypertension Medical History Mitral stenosis Medical History Abnormal results of pulmonary fu nction studies Medical History 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 Medical History Cardiac pacemaker Medical History Fatigue Medical History IGLESIAS (dyspnea on exertion) Medical History Essential hypertension Medical History Primary insomnia Medical History TRAVIS (generalized anxiety disorde r) Medical History Elevated TSH Medical History Gastroesophageal ref lux disease with esophagitis without hemorrhage Surgical History TAVR, PERCUTANEOUS 2021 Surgical History CARDIAC CATHETERIZATION, COMBIN ED RIGHT AND LEFT HEART 2021 Surgical History MITRAL VALVE REPLACEMENT 2012 Surgical History CABG X1 2012 Surgical History MAZE PROCEDURE Surgical History [facility] 09/2023 Hospitalization History SEE SURGICAL HX [facility] Other Hospital course Narrative No data available for this section [facility] Dis[facility] instructions No data available for this section [facility] (narrative)* Outpatient Procedure (Routine) - Authorized Specialty Diagnoses / Procedures Referred By Contac t [facility] Diagnoses S/P transcatheter mitral valve replacement (TMVR) Procedures ECHO ECHO TTC R-T 2D W/WOM-MODE COMPL SPEC&COLR D Beverly Polanco MD [address] [place] [address] [facility] [address] [place] [address] Referral ID Status Reason Start Date Expiration Date Visits Requested Visits Authorized [id number] Authorized Auto-Generat ed Referral 12/12/2021 12/12/2022 1 1 * Outpatient Procedure (Routine) - Authorized Specialty Diagnoses / Procedures Referred By Contac t Referred To Contact [facility] Diagnoses S/P transcatheter mitral valve replacement (TMVR) Procedures ECG COMPLETE ECG ROUTINE ECG W/LEAST 12 LDS W/I&R Beverly Polanco MD [address] [place] [address] [address] Referral ID Status Reason Start Date Expiration Date Visits Requested Visits Authorized [id number] Authorized Auto-Generat ed Referral 12/12/2021 12/12/2022 1 1 * Outpatient Procedure (Routine) - Authorized Specialty Diagnoses / Procedures Referred By Contac t Referred To Contact [facility] Diagnoses S/P transcatheter mitral valve replacement (TMVR) Procedures ECG COMPLETE ECG ROUTINE ECG W/LEAST 12 LDS W/I&R Beverly Polanco MD [address] [facility] [address] [place] [address] [address] Referral ID Status Reason Start Date Expiration Date Visits Requested Visits Authorized [id number] Authorized Auto-Generat ed Referral 12/12/2021 12/12/2022 1 1 [facility] for referral (narrative)* Outpatient Procedure (Routine) - Pending Review Specialty Diagnoses / Procedures Referred By Contac t Referred To Contact [facility] Diagnoses S/P transcatheter mitral valve replacement (TMVR) Procedures ECHO ECHO TTHRC R-T 2D W/WOM-MODE COMPL SPEC&COLR D Beverly Polanco MD [address] [place] [address] [address] Referral ID Status Reason Start Date Expiration Date Visits Requested Visits Authorized [id number] Pending Review Auto-Generat ed Referral 02/07/2022 02/07/2023 1 1 [facility] for referral (narrative)* Outpatient Procedure (Routine) - Pending Review Specialty Diagnoses / Procedures Referred By Contac t Referred To Contact [facility] Diagnoses Mitral valve stenosis, rheumatic Chronic atrial fibrillation (HCC) Hx of maze procedure History of MVR with cardiopulmonary bypass Tricuspid valve insufficiency, unspecified etiology Pulmonary HTN (HCC) S/P MVR (mitral valve replacement) Procedures ECHO ECHO TTHRC R-T 2D W/WOM-MODE COMPL SPEC&[place] [address] [place] [address] [address] Referral ID Status Reason Start Date Expiration Date Visits Requested Visits Authorized [id number] Pending Review Auto-Generat ed Referral 11/19/2022 11/19/2023 1 1 [facility] for referral (narrative)* Outpatient Procedure (Routine) - Authorized Specialty Diagnoses / Procedures Referred By Contac t Referred To Contact [facility] Diagnoses S/P transcatheter mitral valve replacement (TMVR) Procedures ECHO ECHO TTHRC R-T 2D W/WOM-MODE COMPL SPEC&COLR D Beverly Polanco MD [address] [place] [address] [address] Referral ID Status Reason Start Date Expiration Date Visits Requested Visits Authorized [id number] Authorized Auto-Generat ed Referral 04/09/2023 04/08/2024 1 1 [facility] for referral (narrative)* Outpatient Procedure (Routine) - Pending Review Specialty Diagnoses / Procedures Referred By Meenakshi t Referred [facility] Diagnoses Encounter for preprocedural cardiovascular examination Nonrheumatic tricuspid valve regurgitation Chronic right-sided heart failure (HCC) IGLESIAS (dyspnea on exertion) Atrial fibrillation, chronic (HCC) Procedures ECG COMPLETE ECG ROUTINE ECG W/LEAST 12 LDS W/I&R Beverly Polanco MD [address] [employer] [place] [address] [facility] [place] [address] [place] [id number] Referral ID Status Reason Start Date Expiration Date Visits Requested Visits Authorized [id number] Pending Review Auto-Generat ed Referral 05/21/2023 05/20/2024 1 1 * MRI/CT (Routine) - Pending Review Specialty Diagnoses / Procedures Referred By Meenakshi montoya Referred To Contact CT IMAGING Diagnoses Encounter for preprocedural cardiovascular examination Nonrheumatic tricuspid valve regurgitation Chronic right-sided heart failure (HCC) IGLESIAS (dyspnea on exertion) Atrial fibrillation, chronic (HCC) Procedures CT CARDIAC W IVCON CT HEART CONTRAST EVAL CARDIAC STRUCTURE&MORPH Beverly Polanco MD [address] [place] [address] Ct [facility] [place] [address] Referral ID Status Reason Start Date Expiration Date Visits Requested Visits Authorized [id number] Pending Review Auto-Generat ed Referral 05/21/2023 06/19/2024 1 1 * Outpatient Procedure (Routine) - Pending Review Specialty Diagnoses / Procedures Referred By Meenakshi t Referred To Contact [facility] [place] Diagnoses Encounter for preprocedural cardiovascular examination Nonrheumatic tricuspid valve regurgitation Chronic right-sided heart failure (HCC) IGLESIAS (dyspnea on exertion) Atrial fibrillation, chronic (HCC) Procedures ECHO TRANSESOPHAGEAL ECHO TRANSESOPHAG R-T 2D W/PRB IMG ACQUISJ I&R Beverly Polanco MD [address] [place] [address] [facility] [address] [place] [address] Referral ID Status Reason Start Date Expiration Date Visits Requested Visits Authorized [id number] Pending Review Auto-Generat ed Referral 05/21/2023 05/20/2024 1 1 * Outpatient Procedure (Routine) - Pending Review Specialty Diagnoses / Procedures Referred By Contac t Referred To Contact [facility] [place] Diagnoses Encounter for preprocedural cardiovascular examination Nonrheumatic tricuspid valve regurgitation Chronic right-sided heart failure (HCC) IGLESIAS (dyspnea on exertion) Atrial fibrillation, chronic (HCC) Procedures ECHO ECHO TTHRC R-T 2D W/WOM-MODE COMPL SPEC&COLR D Beverly Polanco MD [address] [facility] [place] [id number] [facility] [address] [place] [address] Referral ID Status Reason Start Date Expiration Date Visits Requested Visits Authorized [id number] Pending Review Auto-Generat ed Referral 05/21/2023 05/20/2024 1 1 [facility] for referral (narrative)* Outpatient Procedure (Routine) - Pending Review Specialty Diagnoses / Procedures Referred By Contac t Referred To Contact [facility] Diagnoses Nonrheumatic tricuspid valve regurgitation Chronic diastolic heart failure (HCC) Permanent atrial fibrillation (HCC) Procedures ECG COMPLETE ECG ROUTINE ECG W/LEAST 12 LDS W/I&R Ed Barlow APRN.FILM HISTORIAN [address] [place] [address] [facility] [address] [place] [address] Referral ID Status Reason Start Date Expiration Date Visits Requested Visits Authorized [id number] Pending Review Auto-Generat ed Referral 3 08/12/2024 1 1 * Outpatient Procedure (Routine) - Pending Review Specialty Diagnoses / Procedures Referred By Meenakshi montoya Referred To Contact [facility] [place] Diagnoses Nonrheumatic tricuspid valve regurgitation Chronic diastolic heart failure (HCC) Permanent atrial fibrillation (HCC) Procedures ECHO ECHO TTHRC R-T 2D W/WOM-MODE COMPL SPEC&COLR D Ed Barlow APRN.JENNIFER [address] [place] [address] [facility] [place] [address] [place] [address] Referral ID Status Reason Start Date Expiration Date Visits Requested Visits Authorized [id number] Pending Review Auto-Generat ed Referral 3 08/12/2024 1 1 [facility] Reason Referral for nonheal ing wound LLE Diagnosis 1 Ulcer of left lower extremity, limited to breakdown of skin (L97.090) Referral Organization [facility] [employer] Guillermina garnett Referring Provider First Name Haresh Referring Provider Last Name Dakota Referring Provider Specialty Internal Me dicine Referred Organization [facility] Referred Address [address] [place], [place],[address] Referred Provider Specialty Wound Care Referral Priority Routine General Notes Patient w/ varicosit ies, chronic venous insufficiency and chronic anticoagulation with nonhealing leg ulceration. Quarter sized superficial ulcer lateral side of left calf. Surrounding erythema w/o drainage or bleeding. [facility] Other Reason for referral (narrative)* Reason Referral for colonos copy Diagnosis 1 Painless rectal blee isaac (K62.5) Referral Organization [facility] [employer] Guillermina garnett Referring Provider First Name Haresh Referring Provider Last Name Dakota Referring Provider Specialty Internal Me dicine Referred Organization [facility] Referred Address [address] [place], [place],[address] Referred Provider Specialty Gastroentero logy Referral Priority Routine General Notes Patient who is on [place] rfarin for chronic atrial fibrillation has developed rectal bleeding. She denies abdominal pain, tenesmus or melena. Her bleeding is limited to when having bowel movements. She is tentatively scheduled for Tricuspid valve repair, which has been postponed until her rectal bleeding can be further evaluated. She was seen in the ER and her VS were stable. INR 2.5, Hgb 13.5gm [facility] [employer] Other Reason for visit Narrativereferral for colonoscopy - [facility] Other Summary Purpose Family History No Family History Records Found Relationship Condition Age at Onset Recorded Date/T david father Unknown Not Specified Unknown Relationship Condition Age at Onset Recorded Date/T david father Unknown Diabetes mellitus Unknown Myocardial infarction Unknown Heart disease Unknown Not Specified Unknown Malignant neoplasm Unknown sister Chronic obstructive pulmonary disease Unk nown Relationship Condition Age at Onset Recorded Date/T david father Unknown Diabetes mellitus Unknown Myocardial infarction Unknown Heart disease Unknown mother Unknown Malignant neoplasm Unknown sister Chronic obstructive pulmonary disease Unk nown Advance Directives No Advanced Directives Records FoundDocuments on File Type Date Recorded 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 Advance Directive(s) 11/14/2021 9:34 AM Advance Directive(s) 10/10/2021 1:12 PM Advance Directive(s) 09/19/2021 12:00 PM Advance Directive(s) 09/12/2021 8:43 AM Documents on File Type Date Recorded 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 Advance Directive(s) 11/14/2021 9:34 AM Advance Directive(s) 10/10/2021 1:12 PM Advance Directive(s) 09/19/2021 12:00 PM Advance Directive(s) 09/12/2021 8:43 AM Advance Directive Response Recorded Date/ Time Advance Directives No August 6:48pm Advance Directive Response Recorded Date/ Time Advance Directives No August 5:48pm Health Concerns Infection Onset Date Last Indicated Resolved Time COVID-19 Rule-Out 09/11/2021 09/10/2021 10/01/2021 8:53 PM EST COVID-19 Rule-Out 11/02/2021 11/02/2021 11/02/2021 9:49 PM EST Chief Complaint and Reason for Visit Chief Complaint consult T82.857D Z95.2 Chief Complaint z78.0 z79.899 e78.01 i12.9 e55.9 Chief Complaint atrial fib r09.89 Chief Complaint atrial fib Obstructive sleep apnea Chief Complaint Wellness Wound Recheck Wound Check Dr Yvonne Lino - left lower leg atrial fib rectal bleeding Reason for Visit Benign hypertension with chronic kidney disease, stage III CHF (congestive heart failure) Chronic venous insufficiency Edema of left lower leg History of melanoma Inflammation Traumatic open wound of left lower leg with delayed healing Vitamin D deficiency Wound pain Chief Complaint INR Follow Up see TE INR Follow Up INR Follow Up follow up colonoscopy 3 month follow up Open Wound INR Follow Up Reason for Visit Chronic atrial fibri llation Chronic atrial fibrillation Chronic atrial fibrillation Diverticul disease small and large intestine, no perforati or abscess ASHD (arteriosclerotic heart disease) Chronic heart failure with preserved ejection fraction (HFpEF) Chronic venous insufficiency Obstructive sleep apnea (adult) (pediatric) Oral ulceration Chronic atrial fibrillation Chronic venous insufficiency Chronic atrial fibrillation Reason for Referral Specialty Diagnoses / Procedures Referred By Contac t Referred To Contact Procedures CARDIOVASCULAR MEDICINE OP FOLLOW UP APPT ORDER Ed Barlow APRN.FILM HISTORIAN [address] [place] [id number] Referral ID Status Reason Start Date Expiration Date Visits Requested Visits Authorized [id number] Ref Not Required PCP Requested Referral 3 08/12/2024 1 1 Specialty Diagnoses / Procedures Referred By Contac t Referred To Contact Diagnoses Permanent atrial fibrillation (HCC) Stage 3a chronic kidney disease (HCC) Non-ischemic cardiomyopathy (HCC) Primary hypertension Procedures CARDIOVASCULAR MEDICINE OP FOLLOW UP APPT ORDER Esthela Ramos MD [address] [place] [address] Referral ID Status Reason Start Date Expiration Date Visits Requested Visits Authorized [id number] Ref Not Required PCP Requested Referral 3 08/05/2024 1 1 Additional Source Comments INFORMATION SOURCE (unrecogn ized section and content) DATE CREATED AUTHOR 03/06/2018 [facility] DATE CREATED AUTHOR AUTHOR'S ORGANIZ ATION 03/09/2018 [facility] DATE CREATED AUTHOR AUTHOR'S ORGANIZ ATION 11/06/2019 [facility] DATE CREATED AUTHOR AUTHOR'S ORGANIZ ATION 09/20/2021 [facility] DATE CREATED AUTHOR AUTHOR'S ORGANIZ ATION 05/15/2022 [place] [facility] DATE CREATED AUTHOR AUTHOR'S ORGANIZ ATION 09/16/2022 [facility] DATE CREATED AUTHOR AUTHOR'S ORGANIZ ATION 01/10/2024 [facility] DATE CREATED AUTHOR AUTHOR'S ORGANIZ ATION 02/20/2024 [facility] DATE CREATED AUTHOR AUTHOR'S ORGANIZ ATION 03/18/2024 [facility] Source Comments (unrecognize d section and content) In the event this informatio n is protected by the Federal Confidentiality of Alcohol and Drug Abuse Patient Records regulations: The Federal rules restrict any use of the information to criminally investigate or prosecute any alcohol or drug abuse patient.[facility] the event this information is protected by the Federal Confidentiality of Alcohol and Drug Abuse Patient Records regulations: The Federal rules restrict any use of the information to criminally investigate or prosecute any alcohol or drug abuse patient.[facility] Center[facility] the event this information is protected by the Federal Confidentiality of Alcohol and Drug Abuse Patient Records regulations: The Federal rules restrict any use of the information to criminally investigate or prosecute any alcohol or drug abuse patient.[facility] Center[facility] the event this information is protected by the Federal Confidentiality of Alcohol and Drug Abuse Patient Records regulations: The Federal rules restrict any use of the information to criminally investigate or prosecute any alcohol or drug abuse patient.[facility] Center[facility] the event this information is protected by the Federal Confidentiality of Alcohol and Drug Abuse Patient Records regulations: The Federal rules restrict any use of the information to criminally investigate or prosecute any alcohol or drug abuse patient.[facility] CenterIn the event this information is protected by the Federal Confidentiality of Alcohol and Drug Abuse Patient Records regulations: The Federal rules restrict any use of the information to criminally investigate or prosecute any alcohol or drug abuse patient.[facility] CenterIn the event this information is protected by the Federal Confidentiality of Alcohol and Drug Abuse Patient Records regulations: The Federal rules restrict any use of the information to criminally investigate or prosecute any alcohol or drug abuse patient.[facility] CenterIn the event this information is protected by the Federal Confidentiality of Alcohol and Drug Abuse Patient Records regulations: The Federal rules restrict any use of the information to criminally investigate or prosecute any alcohol or drug abuse patient.[facility] CenterIn the event this information is protected by the Federal Confidentiality of Alcohol and Drug Abuse Patient Records regulations: The Federal rules restrict any use of the information to criminally investigate or prosecute any alcohol or drug abuse patient.[facility] Center[facility] the event this information is protected by the Federal Confidentiality of Alcohol and Drug Abuse Patient Records regulations: The Federal rules restrict any use of the information to criminally investigate or prosecute any alcohol or drug abuse patient.[facility] CenterIn the event this information is protected by the Federal Confidentiality of Alcohol and Drug Abuse Patient Records regulations: The Federal rules restrict any use of the information to criminally investigate or prosecute any alcohol or drug abuse patient.[facility] CenterIn the event this information is protected by the Federal Confidentiality of Alcohol and Drug Abuse Patient Records regulations: The Federal rules restrict any use of the information to criminally investigate or prosecute any alcohol or drug abuse patient.[facility] CenterIn the event this information is protected by the Federal Confidentiality of Alcohol and Drug Abuse Patient Records regulations: The Federal rules restrict any use of the information to criminally investigate or prosecute any alcohol or drug abuse patient.[facility] CenterIn the event this information is protected by the Federal Confidentiality of Alcohol and Drug Abuse Patient Records regulations: The Federal rules restrict any use of the information to criminally investigate or prosecute any alcohol or drug abuse patient.[facility] CenterIn the event this information is protected by the Federal Confidentiality of Alcohol and Drug Abuse Patient Records regulations: The Federal rules restrict any use of the information to criminally investigate or prosecute any alcohol or drug abuse patient.[facility] CenterIn the event this information is protected by the Federal Confidentiality of Alcohol and Drug Abuse Patient Records regulations: The Federal rules restrict any use of the information to criminally investigate or prosecute any alcohol or drug abuse patient.[facility] CenterIn the event this information is protected by the Federal Confidentiality of Alcohol and Drug Abuse Patient Records regulations: The Federal rules restrict any use of the information to criminally investigate or prosecute any alcohol or drug abuse patient.[facility] CenterIn the event this information is protected by the Federal Confidentiality of Alcohol and Drug Abuse Patient Records regulations: The Federal rules restrict any use of the information to criminally investigate or prosecute any alcohol or drug abuse patient.[facility] CenterIn the event this information is protected by the Federal Confidentiality of Alcohol and Drug Abuse Patient Records regulations: The Federal rules restrict any use of the information to criminally investigate or prosecute any alcohol or drug abuse patient.[facility] CenterIn the event this information is protected by the Federal Confidentiality of Alcohol and Drug Abuse Patient Records regulations: The Federal rules restrict any use of the information to criminally investigate or prosecute any alcohol or drug abuse patient.[facility] CenterIn the event this information is protected by the Federal Confidentiality of Alcohol and Drug Abuse Patient Records regulations: The Federal rules restrict any use of the information to criminally investigate or prosecute any alcohol or drug abuse patient.[facility] CenterIn the event this information is protected by the Federal Confidentiality of Alcohol and Drug Abuse Patient Records regulations: The Federal rules restrict any use of the information to criminally investigate or prosecute any alcohol or drug abuse patient.[facility] CenterIn the event this information is protected by the Federal Confidentiality of Alcohol and Drug Abuse Patient Records regulations: The Federal rules restrict any use of the information to criminally investigate or prosecute any alcohol or drug abuse patient.[facility] CenterIn the event this information is protected by the Federal Confidentiality of Alcohol and Drug Abuse Patient Records regulations: The Federal rules restrict any use of the information to criminally investigate or prosecute any alcohol or drug abuse patient.[facility] CenterIn the event this information is protected by the Federal Confidentiality of Alcohol and Drug Abuse Patient Records regulations: The Federal rules restrict any use of the information to criminally investigate or prosecute any alcohol or drug abuse patient.[facility] CenterIn the event this information is protected by the Federal Confidentiality of Alcohol and Drug Abuse Patient Records regulations: The Federal rules restrict any use of the information to criminally investigate or prosecute any alcohol or drug abuse patient.[facility] CenterIn the event this information is protected by the Federal Confidentiality of Alcohol and Drug Abuse Patient Records regulations: The Federal rules restrict any use of the information to criminally investigate or prosecute any alcohol or drug abuse patient.[facility] CenterIn the event this information is protected by the Federal Confidentiality of Alcohol and Drug Abuse Patient Records regulations: The Federal rules restrict any use of the information to criminally investigate or prosecute any alcohol or drug abuse patient.[facility] CenterIn the event this information is protected by the Federal Confidentiality of Alcohol and Drug Abuse Patient Records regulations: The Federal rules restrict any use of the information to criminally investigate or prosecute any alcohol or drug abuse patient.[facility] CenterIn the event this information is protected by the Federal Confidentiality of Alcohol and Drug Abuse Patient Records regulations: The Federal rules restrict any use of the information to criminally investigate or prosecute any alcohol or drug abuse patient.[facility] CenterIn the event this information is protected by the Federal Confidentiality of Alcohol and Drug Abuse Patient Records regulations: The Federal rules restrict any use of the information to criminally investigate or prosecute any alcohol or drug abuse patient.[facility] CenterIn the event this information is protected by the Federal Confidentiality of Alcohol and Drug Abuse Patient Records regulations: The Federal rules restrict any use of the information to criminally investigate or prosecute any alcohol or drug abuse patient.[facility] Care Teams (unrecognized sec tion and content) Team Status: Active Member Role Status Dates Haresh Lino , DO Primary Care Provider Active Team Status: Active Member Role Status Dates Haresh Lino DO Primary Care Provide r, Attending Provider Active Start: December 18, 2023 Team Status: Inactive Member Role Status Dates Haresh Lino DO Primary Care Provide r, Referring Provider Active Start: December 24, 2023 End: December 24, 2023 Apoorva Love RPH Active Start: December 24, 2023 End: December 24, 2023 Radha Escobar RPH Attending Provider Active Start: December 24, 2023 End: December 24, 2023 Team Status: Inactive Member Role Status Dates Haresh Lino DO Primary Care Provide r, Referring Provider Active Start: January 21, 2024 End: January 21, 2024 Radha Escobar RPH Attending Provider Active Start: January 21, 2024 End: January 21, 2024 Team Status: Inactive Member Role Status Dates Haresh Lino DO Primary Care Provide r, Referring Provider Active Start: February 18, 2024 End: February 18, 2024 Radha Escobar RPH Attending Provider Active Start: February 18, 2024 End: February 18, 2024 Team Status: Inactive Member Role Status Dates Haresh Lino DO Primary Care Provider Active Start: March 01, 2024 End: March 01, 2024 Gatito Rodriguez APRN Attending Provider Active Start: March 01, 2024 End: March 01, 2024 Team Status: Inactive Member Role Status Dates Haresh Lino DO Primary Care Provide r, Attending Provider Active Start: March 03, 2024 End: March 03, 2024 Team Status: Active Member Role Status Dates Haresh Lino DO Primary Care Provider Active Start: March 08, 2024 Melissa Alanis APRN Attending Provider Active St art: March 08, 2024 Kyung Goodman APRN Active Star t: March 08, 2024 Team Status: Inactive Member Role Status Dates Haresh Lino DO Primary Care Provide r, Referring Provider Active Start: March 15, 2024 End: March 15, 2024 Radha Escobar Jackelin Attending Provider Active Start: March 15, 2024 End: March 15, 2024 Team Status: Inactive Member Role Status Dates Haresh Lino DO Primary Care Provider, Attending Pr ankit Active Team Status: Active Member Role Status Dates Haresh Lino DO Primary Care Provider, Attending Pr ovidleona Active [employer] Relationship Specialty Start Date End Date Haresh Lino, DO [address] [place] [address] PCP - General Internal Medicine 09/12/21 Beverly Polanco MD [address] [place] [address] Primary Staff Physician Cardiology 11/02/21 [employer] Operator Relationship Specialty Start Date End Date DakotaHaresh, DO [address] [place] [phone] PCP - General Internal Medicine 09/12/21 Beverly Polanco MD [address] [place] [address] Primary Staff Physician Cardiology 11/02/21 [employer] Operator Relationship Specialty Start Date End Date Haresh Lino, DO [address] [facility] [place] [phone] PCP - General Internal Medicine 09/12/21 Beverly Polanco MD [address] [place] [address] Primary Staff Physician Cardiology 11/02/21 [employer] Operator Relationship Specialty Start Date End Date Haresh Lino, DO [address] [facility] [place] [phone] PCP - General Internal Medicine 09/12/21 Beverly Polanco MD [address] [place] [address] Primary Staff Physician Cardiology 11/02/21 [employer] Operator Relationship Specialty Start Date End Date Haresh Lino, DO [address] [place] [facility] [place] [phone] PCP - General Internal Medicine 09/12/21 Beverly Polanco MD [address] [place] [address] Primary Staff Physician Cardiology 11/02/21 [employer] Operator Relationship Specialty Start Date End Date Haresh Lino, DO [address] [place] [facility] [place] [phone] PCP - General Internal Medicine 09/12/21 Beverly Polanco MD [address] [place] [address] Primary Staff Physician Cardiology 11/02/21 [employer] Operator Relationship Specialty Start Date End Date Haresh Lino, DO [address] [place] [phone] PCP - General Internal Medicine 09/12/21 Beverly Polanco MD [address] [place] [address] Primary Staff Physician Cardiology 11/02/21 Team Status: Active Member Role Status Dates Haresh Lino DO Primary Care Provider Active Beverly Polanco MD Attending Provider Active Team Status: Inactive Member Role Status Dates Haresh Lino DO Primary Care Provider Active Referral Self Referring Provider Active Emil Salinas MD Attending Provider Active [employer] Relationship Specialty Start Date End Date Haresh Lino DO [address] [place] [address] PCP - General Internal Medicine 09/12/21 Beverly Polanco MD [address] [place] [address] Primary Staff Physician Cardiology 11/02/21 [employer] Operator Relationship Specialty Start Date End Date Haresh Lion DO PCP - General Internal Medicine 09/12/21 Beverly Polanco MD [address] [place] [address] Primary Staff Physician Cardiology 11/02/21 [employer] Relationship Specialty Start Date End Date Haresh Lino DO PCP - General Internal Medicine 09/12/21 Beverly Polanco MD [address] [place] [address] Primary Staff Physician Cardiology 11/02/21 [employer] Relationship Specialty Start Date End Date Haresh Lino DO PCP - General Internal Medicine 09/12/21 Beverly Polanco MD [address] [place], [place] [id number] Primary Staff Physician Cardiology 11/02/21 [employer] Relationship Specialty Start Date End Date Haresh Lino DO PCP - General Internal Medicine 09/12/21 Beverly Polanco MD [address] [place], [place] [id number] Primary Staff Physician Cardiology 11/02/21 [employer] Relationship Specialty Start Date End Date Haresh Lino DO PCP - General Internal Medicine 09/12/21 Beverly Polanco MD [address] [place] [address] Primary Staff Physician Cardiology 11/02/21 Team Status: Inactive Member Role Status Dates Haresh Lino DO Primary Care Provider Active Emil Salinas MD Attending Provider Active [employer] Relationship Specialty Start Date End Date Haresh Lino DO PCP - General Internal Medicine 09/12/21 Beverly Polanco MD [address] [place] [address] Primary Staff Physician Cardiology 11/02/21 [employer] Relationship Specialty Start Date End Date Haresh Lino DO PCP - General Internal Medicine 09/12/21 Beverly Polanco MD [address] [place] [address] Primary Staff Physician Cardiology 11/02/21 [employer] Relationship Specialty Start Date End Date Haresh Lino DO PCP - General Internal Medicine 09/12/21 Beverly Polanco MD [address] [place] [address] Primary Staff Physician Cardiology 11/02/21 [employer] Relationship Specialty Start Date End Date Haresh Lino DO PCP - General Internal Medicine 09/12/21 Beverly Polanco MD [address] [place] [address] Primary Staff Physician Cardiology 11/02/21 [employer] Relationship Specialty Start Date End Date Haresh Lino DO PCP - General Internal Medicine 09/12/21 Beverly Polanco MD [address] [place] [address] Primary Staff Physician Cardiology 11/02/21 [employer] Relationship Specialty Start Date End Date Haresh Lino DO PCP - General Internal Medicine 09/12/21 Beverly Polanco MD [address] [place], [place] [id number] Primary Staff Physician Cardiology 11/02/21 [employer] Relationship Specialty Start Date End Date Haresh Lino DO PCP - General Internal Medicine 09/12/21 Beverly Polanco MD [address] [place], [place] [id number] Primary Staff Physician Cardiology 11/02/21 [employer] Relationship Specialty Start Date End Date Haresh Lino DO PCP - General Internal Medicine 09/12/21 Beverly Polanco MD [address] [place] [address] Primary Staff Physician Cardiology 11/02/21 [employer] Relationship Specialty Start Date End Date Haresh Lino DO PCP - General Internal Medicine 09/12/21 Beverly Polanco MD [address] [place] [address] Primary Staff Physician Cardiology 11/02/21 Team Status: Inactive Member Role Status Dates Haresh Lino DO Attending Provider Active Sta rt: September 02, 2023 End: September 02, 2023 Team Status: Inactive Member Role Status Dates Haresh Lino DO Attending Provider Active Sta rt: September 12, 2023 End: September 12, 2023 Team Status: Inactive Member Role Status Dates Haresh Lino DO Attending Provider Active Sta rt: September 19, 2023 End: September 19, 2023 Team Status: Active Member Role Status Dates Provider Conversion Attending Provider Active St art: September 24, 2023 Team Status: Active Member Role Status Dates Haresh Lino DO Primary Care Provider Active Start: September 30, 2023 Melissa Alanis APRN Attending Provider Active St art: September 30, 2023 Team Status: Active Member Role Status Dates Haresh Lino DO Primary Care Provide r, Attending Provider Active Start: October 13, 2023 Team Status: Inactive Member Role Status Dates Haresh Lino DO Primary Care Provider Active Start: October 14, 2023 End: October 14, 2023 Moni Wagoner DO Emergency Provider Active Start: October 14, 2023 End: October 14, 2023 [employer] Relationship Specialty Start Date End Date Haresh Lino DO PCP - General Internal Medicine 09/12/21 Beverly Polanco MD [address] [place], [place] [id number] Primary Staff Physician Cardiology 11/02/21 [employer] Relationship Specialty Start Date End Date Harseh Lino DO PCP - General Internal Medicine 09/12/21 Beverly Polanco MD [address] [place] [address] Primary Staff Physician Cardiology 11/02/21 [employer] Relationship Specialty Start Date End Date Haresh Lino MD [address] [facility] [place] [address] PCP - General Internal Medicine 02/18/23 [employer] Relationship Specialty Start Date End Date Haresh Lino MD [address] [facility] [place] [address] PCP - General Internal Medicine 02/18/23 Team Status: Inactive Member Role Status Dates Haresh Lino DO Attending Provider Active Sta rt: October 15, 2023 End: October 15, 2023 Team Status: Active Member Role Status Dates Haresh Lino DO Primary Care Provider Active Start: October 27, 2023 Melissa Alanis APRN Active Start: Jude gustafson 2023 Kyung Goodman APRN Attending Provider Active Start: October 27, 2023 Team Status: Inactive Member Role Status Dates Haresh Lino DO Primary Care Provide r, Referring Provider Active Start: October 30, 2023 End: October 30, 2023 Apoorva Love Jackelin Attending Provider Active Start: October 30, 2023 End: October 30, 2023 Team Status: Inactive Member Role Status Dates Haresh Lino DO Primary Care Provide r, Attending Provider Active Start: October 13, 2023 End: October 13, 2023 Team Status: Active Member Role Status Dates Haresh Lino DO Primary Care Provider Active Start: November 03, 2023 Melissa Alanis APRN Attending Provider Active St art: November 03, 2023 Kyung Goodman APRN Active Star t: November 03, 2023 [employer] Relationship Specialty Start Date End Date Haresh Lino DO PCP - General Internal Medicine 09/12/21 Beverly Polanco MD [address] [facility] [address] [place] [address] Primary Staff Physician Cardiology 11/02/21 Team Status: Inactive Member Role Status Dates Haresh Lino DO Primary Care Provide r, Referring Provider Active Start: November 10, 2023 End: November 10, 2023 Apoorva Love RPH Active Start: 2023 End: November 10, 2023 Radha Escobar [facility] Attending Provider Active Start: November 10, 2023 End: November 10, 2023 Team Status: Inactive Member Role Status Dates Haresh Lion DO Primary Care Provider Active Start: November 18, 2023 End: November 18, 2023 Jean Carlos Jimenez MD Attending Provider Active Start: November 18, 2023 End: November 18, 2023 Team Status: Active Member Role Status Dates Haresh Lino DO Primary Care Provider Active Start: November 18, 2023 Jean Carlos Jimenez MD Attending Prov ider, Other Provider Active Start: November 18, 2023 Team Status: Active Member Role Status Dates Haresh Lino DO Primary Care Provider Active Start: November 26, 2023 Melissa Alanis APRN Attending Provider Active St art: November 26, 2023 Kyung Goodman APRN Active Star t: November 26, 2023 Team Status: Inactive Member Role Status Dates Haresh Lino DO Primary Care Provide r, Referring Provider Active Start: November 26, 2023 End: November 26, 2023 Apoorva Love Jackelin Active Start: November 26, 2023 End: November 26, 2023 Radha Escobar Jackelin Attending Provider Active Start: November 26, 2023 End: November 26, 2023 Team Status: Inactive Member Role Status Dates Haresh Lino DO Primary Care Provide r, Attending Provider Active Start: December 02, 2023 End: December 02, 2023 Team Status: Active Member Role Status Dates Haresh Lino DO Primary Care Provider Active Start: December 03, 2023 Melissa Alanis APRN Attending Provider Active St art: December 03, 2023 Kyung Goodman APRN Active Star t: December 03, 2023 Team Status: Inactive Member Role Status Dates Haresh Lino DO Primary Care Provide r, Referring Provider Active Start: December 11, 2023 End: December 11, 2023 Apoorva Love Jackelin Active Start: December 11, 2023 End: December 11, 2023 Radha Escobar [facility] Attending Provider Active Start: December 11, 2023 End: December 11, 2023 Team Status: Inactive Member Role Status Dates Haresh Lino DO Primary Care Provide r, Attending Provider Active Start: December 15, 2023 End: December 15, 2023 [employer] Operator Relationship Specialty Start Date End Date Haresh Lino DO PCP - General Internal Medicine 09/12/21 Beverly Polanco MD [address] [facility] [address] [place] [address] Primary Staff Physician Cardiology 11/02/21 Team Status: Active Member Role Status Dates Haresh Lino DO Primary Care Provider Active Start: January 19, 2024 Melissa Alanis APRN Attending Provider Active St art: January 19, 2024 Kyung Goodman APRN Active Star t: January 19, 2024 [employer] Relationship Specialty Start Date End Date Haresh Lino DO PCP - General Internal Medicine 09/12/21 Beverly Polanco MD [address] [place] [address] Primary Staff Physician Cardiology 11/02/21 Team Status: Active Member Role Status Dates Haresh Lino DO Primary Care Provider Active Start: February 10, 2024 Melissa Alanis APRN Attending Provider Active St art: February 10, 2024 Kyung Goodman APRN Active Star t: February 10, 2024 Team Status: Active Member Role Status Dates Haresh Lino DO Primary Care Provider Active Start: February 24, 2024 Melissa Alanis APRN Attending Provider Active St art: February 24, 2024 Kyung Goodman APRN Active Star t: February 24, 2024 Reason for Visit (unrecogniz ed section and content) Reason Comments Valvular Heart Disease Reason Comments Patient Question back pain Reason Comments Back Pain Reason Comments Follow Up Reason Comments Follow Up Reason Comments Insurance Inquiry Reason Comments Patient Update Move Forward With Pr ocedure Discussed at 04/04/23 OV Reason Comments Valvular Heart Disease Reason Comments Consult Reason Comments Valvular Heart Disease Reason Comments Radio Main J1 Reason Comments Appointment Rescheduled Reason Comments Patient Update 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 This clinical summary was aggregated from multiple sources. Caution should be exercised in using it in the provision of clinical care. This summary normalizes information from multiple sources, and as a consequence, information in this document may materially change the coding, format and clinical context of patient data. In addition, data may be omitted in some cases. CLINICAL DECISIONS SHOULD BE BASED ON THE PRIMARY CLINICAL RECORDS. [facility]. provides no warranty or guarantee of the accuracy or completeness of information in this document.
[2024-04-01 13:42] VITALS: BP 112/70; PULSE 62; O2SAT 95
--- NOTE | 2024-04-02 13:38 | P.DS_ITS ---
Discharge Plan Discharge Disposition: Home, Self-Care Outpatient Diagnostics: VC Facility EST LMTD (Routine) Timeframe: 2 Weeks Facility: [facility] - Location: [facility] Ordered By: Emil Sweeney VC EXT Venous LT Limited (Routine) Timeframe: 2 Weeks Facility: [facility] - Location: [facility] Center Ordered By: Emil Sweeney Follow Up Appointments: 04/07/2024 @1330 Plan of Treatment: Left leg limited u/s along with physician examination and consultation Patient Instructions: Polidocanol (By injection) (Pat Dawsonthenish) Print Language: Polish Discharge Date/Time: 04/01/24 13:56
== END 2024-04-01 13:56 | disposition home or self-care (01) ==
LOC: VC 10:45
PROVIDERS: PCP Radiology Diagnostic Radiology; Visit Provider Radiology Diagnostic Radiology
DX: I83.813 Varicose veins of bilateral lower extremities with pain (principal)
CPT/HCPCS: 36466

== ENCOUNTER 2024-04-07 13:19 | Outpatient (OUT) | payer MEDICARE, SELFPAY ==
--- NOTE | 2024-04-07 08:34 | VEINCLINIC_ITS ---
Vital Signs 04/07/24 13:27 Height 5 ft 6 in Weight 63 kg BMI 22.4 BP 128/76 BP Location Right Brachial BP Position Sitting BP Cuff Size Adult BP Source Automatic Cuff Respiration 16 Pulse 75 Pulse Oximetry (%) 95 Comment The patient's blood pressure is elevated. Varicose Veins Patient in today for follow up ultrasound of left lower extremity following elizabeth atment of Varithena/microfoam completed on 04/01/24. Emil Muñoz MD personally performed the services described in this documentation, as scribed by Dalila Peterson RDMS in my presence and it is both accurate and complete. Dalila Muñoz RDMS, am scribing for, and in the presence of, Dr. Emil Sweeney and in the presence of the patient. knee: bilateral (Varicose veins noted throughout bilateral legs), calf: bilateral, ankle: bilateral and croft: bilateral aching, burning and dull 4 6 months Worsened in recent months: Yes standing, sitting and walking analgesics, bed rest, elevating extremities, compression stockings and exercise Reports erythema, edema and other (non healing stasis ulceration (left mid calf)) History of lower extremity trauma: No Superficial thrombophlebitis: No Family history of varicose veins: no Has patient had previous lower extremity venous surgery: No Patient has previously received the following treatment(s) for lower extremity varicose veins: Reports none Does patient have a history of : yes Does patient intend to have future pregnancies: no Has patient had lower extremity venous scan with relux testing: Yes Support hose used: Yes (x5 years ) Problems walking or doing physical activity: Yes How does it affect you: non healing wound to mid posteriorm calf Do you walk much: Yes Do you stand much: Yes Medication compliance: good Review of Systems ROS Narrative Emil Muñoz MD personally performed the services described in this documentation, as scribed by Dalila Peterson RDMS in my presence and it is both accurate and complete. Dalila Muñoz RDMS, am scribing for, and in the presence of, Dr. Emil Sweneey and in the presence of the patient. Status of ROS 10 or more systems reviewed and unremark able except as noted in history and below Cardiovascular Reports: edema, swelling of feet/ankles and leg pain with exertion Musculoskeletal Reports: extremity pain, extremity swelling, limited range of motion, joint swelling, muscle cramps and muscle weakness Integumentary/Breast Reports: itching, redness, skin pain, skin tenderness, skin swelling, new lesion, non-healing lesion and changes in skin color Neurological Reports: numbness in extremities and weakness in extremities [facility] Medical History (Updated 03/31/24 @ 09:03 by Cecilio Mendoza) Phlebitis of superficial vein of left lower extremity ?I80.02 - Phlebitis and thrombophlebitis of superficial vessels of left lower extremity (ICD-10) Varicose veins of bilateral lower extremities with pain ?I83.813 - Varicose veins of bilateral lower extremities with pain (ICD-10) Chapped lips ?K13.0 - Diseases of lips (ICD-10) Cystitis with hematuria ?N30.91 - Cystitis, unspecified with hematuria (ICD-10) Chronic venous hypertension with ulcer ?I87.319 - Chronic venous hypertension (idiopathic) with ulcer of unspecified lower extremity (ICD-10) ?L97.909 - Non-pressure chronic ulcer of unspecified part of unspecified lower leg with unspecified severity (ICD-10) 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, stage III ?I13.0 - Hypertensive heart and chronic kidney disease with heart failure and stage 1 through stage 4 chronic kidney disease, or unspecified chronic kidney disease (ICD-10) ?N18.30 - Chronic kidney disease, stage 3 unspecified (ICD-10) Chronic atrial fibrillation ?I48.20 - Chronic atrial fibrillation, unspecified (ICD-10) ASHD (arteriosclerotic heart disease) ?I25.10 - Atherosclerotic heart disease of [place] coronary artery without angina pectoris (ICD-10) Hypokalemia ?E87.6 - Hypokalemia (ICD-10) Chest wall pain following surgery ?R07.89 - Other chest pain (ICD-10) ?G89.18 - Other acute postprocedural pain (ICD-10) Pulmonary nodule, left ?R91.1 - Solitary pulmonary nodule (ICD-10) At low risk for fall ?Z91.81 - History of falling (ICD-10) Menopause ?Z78.0 - Asymptomatic menopausal state (ICD-10) Vitamin D deficiency ?E55.9 - Vitamin D deficiency, unspecified (ICD-10) Hyperlipidemia ?E78.5 - Hyperlipidemia, unspecified (ICD-10) LISA (obstructive sleep apnea) ?G47.33 - Obstructive sleep apnea (adult) (pediatric) (ICD-10) Depression screening ?Z13.31 - Encounter for screening for depression (ICD-10) Acute on chronic diastolic (congestive) heart failure ?I50.33 - Acute on chronic diastolic (congestive) heart failure (ICD-10) Primary insomnia ?F51.01 - Primary insomnia (ICD-10) Pain due to varicose veins of both lower extremities ?I83.813 - Varicose veins of bilateral lower extremities with pain (ICD-10) IGLESIAS (dyspnea on exertion) ?R06.09 - Other forms of dyspnea (ICD-10) Gastroesophageal reflux disease with esophagitis ?K21.00 - Gastro-esophageal reflux disease with esophagitis, without bleeding (ICD-10) Stenosis of prosthetic mitral valve ?T82.857A - Stenosis of other cardiac prosthetic devices, implants and grafts, initial encounter (ICD-10) Elevated TSH ?R79.89 - Other specified abnormal findings of blood chemistry (ICD-10) TRAVIS (generalized anxiety disorder) ?F41.1 - Generalized anxiety disorder (ICD-10) Chronic bronchitis ?J42 - Unspecified chronic bronchitis (ICD-10) Decreased diffusion capacity ?R94.2 - Abnormal results of pulmonary function studies (ICD-10) Mitral valve stenosis ?I05.0 - Rheumatic mitral stenosis (ICD-10) Pulmonary hypertension ?I27.20 - Pulmonary hypertension, unspecified (ICD-10) Fatigue ?R53.83 - Other fatigue (ICD-10) Nicotine dependence ?F17.200 - Nicotine dependence, unspecified, uncomplicated (ICD-10) Pacemaker ?Z95.0 - Presence of cardiac pacemaker (ICD-10) COPD (chronic obstructive pulmonary disease) ?J44.9 - Chronic obstructive pulmonary disease, unspecified (ICD-10) Urinary incontinence due to urethral sphincter incompetence ?N36.42 - Intrinsic sphincter deficiency (ISD) (ICD-10) ?R32 - Unspecified urinary incontinence (ICD-10) Bilateral tinnitus ?H93.13 - Tinnitus, bilateral (ICD-10) Nonrheumatic mitral valve regurgitation ?I34.0 - Nonrheumatic mitral (valve) insufficiency (ICD-10) Hypertension ?I10 - Essential (primary) hypertension (ICD-10) Surgical History (Updated 03/17/24 @ 13:49 by Aubrie Dang) S/P TAVR (transcatheter aortic valve replacement) ?Z95.2 - Presence of prosthetic heart valve (ICD-10) Hx of appendectomy ?Z90.49 - Acquired absence of other specified parts of digestive tract (ICD- 10) History of bladder suspension procedure ?Z98.890 - Other specified postprocedural states (ICD-10) ?Z87.448 - Personal history of other diseases of urinary system (ICD-10) History of colonoscopy ?Z98.890 - Other specified postprocedural states (ICD-10) History of dilation of urethra ?Z98.890 - Other specified postprocedural states (ICD-10) History of cystoscopy ?Z98.890 - Other specified postprocedural states (ICD-10) History of maze procedure ?Z98.890 - Other specified postprocedural states (ICD-10) Hx of CABG ?Z95.1 - Presence of aortocoronary bypass graft (ICD-10) History of mitral valve replacement ?Z95.2 - Presence of prosthetic heart valve (ICD-10) Family History (Updated 03/17/24 @ 13:51 by Aubrie Dang) Mother Family history of CHF (congestive heart failure) Pain due to varicose veins of both lower extremities Sister Pain due to varicose veins of both lower extremities Social History (Updated 03/17/24 @ 13:52 by Aubrie Dang) Within the past year, how often did you have a drink containing alcohol: 2-4 times a month Smoking status: Former smoker Non-prescribed substance use: denies use Meds Home Medications and Allergies Home Medications ?Medication ?Instructions ?Recorded ?Confirmed ?Type atorvastatin 20 mg tablet 20 mg PO DAILY 03/17/24 03/17/24 History bumetanide 2 mg tablet 1 mg PO DAILY 03/17/24 03/17/24 History clobetasol 0.05 % topical cream 1 applic topical DAILY 03/17/24 03/17/24 History famotidine 20 mg tablet 20 mg PO DAILY 03/17/24 03/17/24 History metoprolol tartrate 50 mg tablet 25 mg PO DAILY 03/17/24 03/17/24 History potassium chloride 10 mEq 10 meq PO DAILY 03/17/24 03/17/24 History tablet,extended release (Klor-Con) sulfasalazine 500 mg tablet 0.5 g PO DAILY 03/17/24 03/17/24 History warfarin 2 mg tablet (Jantoven) 1 mg PO QWEEK 03/17/24 03/17/24 History zolpidem 10 mg tablet (Ambien) 03/17/24 History Allergies Allergy/AdvReac Type Severity Reaction Status Date / Time iodine Allergy Unknown Verified 02/13/24 14:48 Exam Narrative Exam Narrative: Patient has no complaints today. Emil Muñoz MD personally performed the services described in this documentation, as scribed by Dalila Peterson RDMS in my presence and it is both accurate and complete. Dalila Muñoz RDMS am scribing for, and in the presence of, Dr. Emil Sweeney and in the presence of the patient. Constitutional Documenting provider has reviewed patient's vital signs: yes Common normals: oriented x3 Cardio Peripheral pulses: dorsalis pedis pulses present Extremity Common normals: normal capillary refill General: edema Right lower extremity: lower leg Right lower leg: inspection and palpation Left lower extremity: lower leg Left lower leg: inspection and palpation Neuro Common normals: oriented x3 Results Imaging Venous US: Radiologist's impression: Chemically induced thrombus in left leg varicose veins. Emil Muñoz MD personally performed the services described in this documentation, as scribed by Dalila Peterson RDMS in my presence and it is both accurate and complete. Dalila Muñoz RDMS am scribing for, and in the presence of, Dr. Emil Sweeney and in the presence of the patient. Assessment and Plan Assessment and Plan (1) Phlebitis of superficial vein of left lower extremity: Plan Patient to return for Varithena/microfoam of right leg on 04/15/24. Emil Muñoz MD personally performed the services described in this documentation, as scribed by Dalila Peterson RDMS in my presence and it is both accurate and complete. Dalila Muñoz RDMS am scribing for, and in the presence of, Dr. Emil Sweeney and in the presence of the patient.
--- NOTE | 2024-04-07 13:21 | VEIN_ITS ---
Patient Name: YUMIKO FERNANDEZ MR#: [id number] : 1935 Exam Date: 04/07/2024 Ordering Doctor: DR EMIL SWEENEY M.D. RADIOLOGY REPORT PROCEDURE: VC EXT VENOUS LT LIMITED COMPARISON: VC EXT VENOUS LT LIMITED, 03/02/2024. VC EXT VENOUS LT LIMITED, 02/03/2024. INDICATIONS: I80.02 - Phlebitis and thrombophlebitis of superficial veins left leg TECHNIQUE: Lower extremity higgins scale and Duplex Doppler evaluation of the deep venous system from the inguinal ligament through the calf veins. FINDINGS: REGION: Left lower extremity. THROMBI: Negative for DVT. Chemically induced thrombus in left leg varicose veins. COMPRESSIBILITY: Non-compressible segments corresponding to thrombus FLOW: Areas of no flow corresponding to thrombus OTHER: No significant varicosities remain. CONCLUSION: Post ablation occlusion of left leg treated varicose veins. No deep vein thrombus. Dictated by: Emil Sweeney MD on 04/07/2024 at 14:01 Approved by: Emil Sweeney MD on 04/07/2024 at 14:02
--- NOTE | 2024-04-07 13:21 | VEIN_ITS ---
Patient Name: YUMIKO FERNANDEZ MR#: [id number] : 1935 Exam Date: 04/07/2024 Ordering Doctor: DR EMIL SWEENEY M.D. RADIOLOGY REPORT PROCEDURE: [facility] EST LMTD VEIN CENTER - OFFICE VISIT FOLLOW UP COMPARISON: [facility] EST LMTD, 03/23/2024. [facility] EST LMTD, 03/02/2024. PROGRESS NOTES: The patient reports mild discomfort of the left leg following micro foam chemical ablation of incompetent varicose veins. The patient has worn her compression stockings every day. Patient did not require oral analgesics. Physical exam demonstrates multiple thrombosed varicose veins. Residual right leg varicose veins are observed. Moderate bilateral reticular and spider veins. Patient's left leg ulceration has sealed and she has been discharged from the wound clinic. The patient did right leg ulceration has improved but not completely healed. Review of the ultrasound performed the same day demonstrates occlusive thrombus extending throughout the treated left leg varicose veins. No deep vein thrombus. The patient expressed a desire to proceed with treatment of right leg incompetent varicose veins. VEIN/[facility] EST LMTD IMPRESSION: 1. Successful ablation of treated incompetent left leg varicose veins 2. Persistent incompetent right leg varicose veins. PLAN: Micro foam chemical ablation right leg incompetent varicose veins Nurse notes, history and physical were reviewed and confirmed, see attached forms. The nurse was present throughout the physical exam and consultation Dictated by: Emil Sweeney MD on 04/07/2024 at 14:11 Approved by: Emil Sweeney MD on 04/07/2024 at 14:17
[2024-04-07 13:27] VITALS: BP 128/76; PULSE 75; O2SAT 95; BMI 22.4
--- NOTE | 2024-04-07 13:50 | P.DS_ITS ---
Discharge Plan Discharge Disposition: Home, Self-Care Outpatient Diagnostics: VC INJ Foam Sclerosant WUS PUBLISHER ASSISTANT (Routine) Timeframe: 2 Weeks Facility: [facility] - Location: Vein Center Ordered By: Emil Sweeney Follow Up Appointments: 04/15/24 Plan of Treatment: Varithena/microfoam of right leg on 04/15/24. Print Language: Nigerian Discharge Date/Time: 04/07/24 15:44
== END 2024-04-07 15:44 | disposition home or self-care (01) ==
PROVIDERS: PCP Radiology Diagnostic Radiology; Visit Provider Radiology Diagnostic Radiology
DX: I80.02 Phlebitis and thrombophlebitis of superficial vessels of left lower extremity (principal)
CPT/HCPCS: 93971; G0463

== ENCOUNTER 2024-04-15 13:00 | Outpatient (OUT) | payer MEDICARE, SELFPAY ==
--- NOTE | 2024-04-14 12:57 | VEINCLINIC_ITS ---
Vital Signs 04/14/24 14:19 Height 5 ft Weight 54.431 kg Varicose Veins Patient in today for microfoam chemical ablation right leg Romeo Muñoz MD personally performed the services described in this documentation, as scribed by Cecilio Mendoza RN in my presence and it is both accurate and complete. Cecilio Muñoz RN, am scribing for, and in the presence of, Dr. Romeo Pabon and in the presence of the patient.. knee: bilateral (Varicose veins noted throughout bilateral legs), calf: bilateral, ankle: bilateral and croft: bilateral aching, burning and dull 4 6 months Worsened in recent months: Yes standing, sitting and walking analgesics, bed rest, elevating extremities, compression stockings and exercise Reports erythema, edema and other (non healing stasis ulceration (left mid calf)) History of lower extremity trauma: No Superficial thrombophlebitis: No Family history of varicose veins: no Has patient had previous lower extremity venous surgery: No Patient has previously received the following treatment(s) for lower extremity varicose veins: Reports none Does patient have a history of : yes Does patient intend to have future pregnancies: no Has patient had lower extremity venous scan with relux testing: Yes Support hose used: Yes (x5 years ) Problems walking or doing physical activity: Yes How does it affect you: non healing wound to mid posteriorm calf Do you walk much: Yes Do you stand much: Yes Medication compliance: good Review of Systems ROS Narrative Romeo Muñoz MD personally performed the services described in this documentation, as scribed by Cecilio Mendoza RN in my presence and it is both accurate and complete. Cecilio Muñoz RN, am scribing for, and in the presence of, Dr. Romeo Pabon and in the presence of the patient. Status of ROS 10 or more systems reviewed and unremark able except as noted in history and below Cardiovascular Reports: edema, swelling of feet/ankles and leg pain with exertion Musculoskeletal Reports: extremity pain, extremity swelling, limited range of motion, joint swelling, muscle cramps and muscle weakness Integumentary/Breast Reports: itching, redness, skin pain, skin tenderness, skin swelling, new lesion, non-healing lesion and changes in skin color Neurological Reports: numbness in extremities and weakness in extremities [facility] Medical History (Updated 04/14/24 @ 14:23 by Cecilio Mendoza) Phlebitis of superficial vein of right lower extremity ?I80.01 - Phlebitis and thrombophlebitis of superficial vessels of right lower extremity (ICD-10) Phlebitis of superficial vein of left lower extremity ?I80.02 - Phlebitis and thrombophlebitis of superficial vessels of left lower extremity (ICD-10) Varicose veins of bilateral lower extremities with pain ?I83.813 - Varicose veins of bilateral lower extremities with pain (ICD-10) Chapped lips ?K13.0 - Diseases of lips (ICD-10) Cystitis with hematuria ?N30.91 - Cystitis, unspecified with hematuria (ICD-10) Chronic venous hypertension with ulcer ?I87.319 - Chronic venous hypertension (idiopathic) with ulcer of unspecified lower extremity (ICD-10) ?L97.909 - Non-pressure chronic ulcer of unspecified part of unspecified lower leg with unspecified severity (ICD-10) 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, stage III ?I13.0 - Hypertensive heart and chronic kidney disease with heart failure and stage 1 through stage 4 chronic kidney disease, or unspecified chronic kidney disease (ICD-10) ?N18.30 - Chronic kidney disease, stage 3 unspecified (ICD-10) Chronic atrial fibrillation ?I48.20 - Chronic atrial fibrillation, unspecified (ICD-10) ASHD (arteriosclerotic heart disease) ?I25.10 - Atherosclerotic heart disease of [place] coronary artery without angina pectoris (ICD-10) Hypokalemia ?E87.6 - Hypokalemia (ICD-10) Chest wall pain following surgery ?R07.89 - Other chest pain (ICD-10) ?G89.18 - Other acute postprocedural pain (ICD-10) Pulmonary nodule, left ?R91.1 - Solitary pulmonary nodule (ICD-10) At low risk for fall ?Z91.81 - History of falling (ICD-10) Menopause ?Z78.0 - Asymptomatic menopausal state (ICD-10) Vitamin D deficiency ?E55.9 - Vitamin D deficiency, unspecified (ICD-10) Hyperlipidemia ?E78.5 - Hyperlipidemia, unspecified (ICD-10) LISA (obstructive sleep apnea) ?G47.33 - Obstructive sleep apnea (adult) (pediatric) (ICD-10) Depression screening ?Z13.31 - Encounter for screening for depression (ICD-10) Acute on chronic diastolic (congestive) heart failure ?I50.33 - Acute on chronic diastolic (congestive) heart failure (ICD-10) Primary insomnia ?F51.01 - Primary insomnia (ICD-10) Pain due to varicose veins of both lower extremities ?I83.813 - Varicose veins of bilateral lower extremities with pain (ICD-10) IGLESIAS (dyspnea on exertion) ?R06.09 - Other forms of dyspnea (ICD-10) Gastroesophageal reflux disease with esophagitis ?K21.00 - Gastro-esophageal reflux disease with esophagitis, without bleeding (ICD-10) Stenosis of prosthetic mitral valve ?T82.857A - Stenosis of other cardiac prosthetic devices, implants and grafts, initial encounter (ICD-10) Elevated TSH ?R79.89 - Other specified abnormal findings of blood chemistry (ICD-10) TRAVIS (generalized anxiety disorder) ?F41.1 - Generalized anxiety disorder (ICD-10) Chronic bronchitis ?J42 - Unspecified chronic bronchitis (ICD-10) Decreased diffusion capacity ?R94.2 - Abnormal results of pulmonary function studies (ICD-10) Mitral valve stenosis ?I05.0 - Rheumatic mitral stenosis (ICD-10) Pulmonary hypertension ?I27.20 - Pulmonary hypertension, unspecified (ICD-10) Fatigue ?R53.83 - Other fatigue (ICD-10) Nicotine dependence ?F17.200 - Nicotine dependence, unspecified, uncomplicated (ICD-10) Pacemaker ?Z95.0 - Presence of cardiac pacemaker (ICD-10) COPD (chronic obstructive pulmonary disease) ?J44.9 - Chronic obstructive pulmonary disease, unspecified (ICD-10) Urinary incontinence due to urethral sphincter incompetence ?N36.42 - Intrinsic sphincter deficiency (ISD) (ICD-10) ?R32 - Unspecified urinary incontinence (ICD-10) Bilateral tinnitus ?H93.13 - Tinnitus, bilateral (ICD-10) Nonrheumatic mitral valve regurgitation ?I34.0 - Nonrheumatic mitral (valve) insufficiency (ICD-10) Hypertension ?I10 - Essential (primary) hypertension (ICD-10) Surgical History (Updated 03/17/24 @ 13:49 by Aubrie Dang) S/P TAVR (transcatheter aortic valve replacement) ?Z95.2 - Presence of prosthetic heart valve (ICD-10) Hx of appendectomy ?Z90.49 - Acquired absence of other specified parts of digestive tract (ICD- 10) History of bladder suspension procedure ?Z98.890 - Other specified postprocedural states (ICD-10) ?Z87.448 - Personal history of other diseases of urinary system (ICD-10) History of colonoscopy ?Z98.890 - Other specified postprocedural states (ICD-10) History of dilation of urethra ?Z98.890 - Other specified postprocedural states (ICD-10) History of cystoscopy ?Z98.890 - Other specified postprocedural states (ICD-10) History of maze procedure ?Z98.890 - Other specified postprocedural states (ICD-10) Hx of CABG ?Z95.1 - Presence of aortocoronary bypass graft (ICD-10) History of mitral valve replacement ?Z95.2 - Presence of prosthetic heart valve (ICD-10) Family History (Updated 03/17/24 @ 13:51 by Aubrie Dang) Mother Family history of CHF (congestive heart failure) Pain due to varicose veins of both lower extremities Sister Pain due to varicose veins of both lower extremities Social History (Updated 03/17/24 @ 13:52 by Aubrie Dang) Within the past year, how often did you have a drink containing alcohol: 2-4 times a month Smoking status: Former smoker Non-prescribed substance use: denies use Meds Home Medications and Allergies Home Medications ?Medication ?Instructions ?Recorded ?Confirmed ?Type atorvastatin 20 mg tablet 20 mg PO DAILY 03/17/24 03/17/24 History bumetanide 2 mg tablet 1 mg PO DAILY 03/17/24 03/17/24 History clobetasol 0.05 % topical cream 1 applic topical DAILY 03/17/24 03/17/24 History famotidine 20 mg tablet 20 mg PO DAILY 03/17/24 03/17/24 History metoprolol tartrate 50 mg tablet 25 mg PO DAILY 03/17/24 03/17/24 History potassium chloride 10 mEq 10 meq PO DAILY 03/17/24 03/17/24 History tablet,extended release (Klor-Con) sulfasalazine 500 mg tablet 0.5 g PO DAILY 03/17/24 03/17/24 History warfarin 2 mg tablet (Jantoven) 1 mg PO QWEEK 03/17/24 03/17/24 History zolpidem 10 mg tablet (Ambien) 03/17/24 History Allergies Allergy/AdvReac Type Severity Reaction Status Date / Time iodine Allergy Unknown Verified 02/13/24 14:48 Exam Narrative Exam Narrative: Romeo Muñoz MD personally performed the services described in this documentation, as scribed by Cecilio Mendoza RN in my presence and it is both accurate and complete. ICecilio RN, am scribing for, and in the presence of, Dr. Romeo Pabon and in the presence of the patient. Constitutional Documenting provider has reviewed patient's vital signs: yes Common normals: oriented x3 Lymph Lymphatic: no lymphedema noted Cardio Peripheral pulses: dorsalis pedis pulses present Extremity Common normals: normal capillary refill General: edema Right lower extremity: lower leg Right lower leg: inspection and palpation Left lower extremity: lower leg Left lower leg: inspection and palpation Neuro Common normals: oriented x3 Assessment and Plan Assessment and Plan (1) Varicose veins of bilateral lower extremities with pain: (2) Phlebitis of superficial vein of right lower extremity: Procedures Procedure Instructions Procedures Right lleg microfoam chemical ablation/Varithena: Risks and benefits of the procedure were discussed at length and informed written consent was obtained.? Time-out procedure was performed and the correct patient and procedure were confirmed.? Staff present during time-out: Cecilio Mendoza RN and Romeo Pabon MD.? Patient prepped and procedure performed in usual sterile fashion.? Patient was placed in Trendelenburg prior to Polidocanol/Varithena injections. Sclerosing Agent:?? 14cc 1% Polidocanol/Varithena Site Injected: Right lecc varithena admnistered in to a 5mm varicose vein mid medial right lower leg 10cc varithena administered in to a 6mm varicose vein medial right knee Number of Injections:? 2 The patient tolerated the procedure well without complication.? Hemostasis was obtained and thigh-high compression stocking was applied with foam pads.? Instructed patient to wear stocking for at least 96 hours and sleep with it and only remove for showering.? The patient was instructed to? wear stocking for 2 weeks.? Patient verbalizes understanding and states they will comply.? Patient was given post-procedure instructions. Patient was discharged in good condition.? Scheduled to undergo limited venous ultrasound and? exam on 04/23/2024. IRomeo MD personally performed the services described in this documentation, as scribed by Cecilio Mendoza RN in my presence and it is both accurate and complete. ICecilio RN, am scribing for, and in the presence of, Dr. Romeo Pabon and in the presence of the patient.
--- NOTE | 2024-04-14 12:58 | W.VEIN ---
Discharge Plan Discharge Disposition: Home, Self-Care Outpatient Diagnostics: VC Facility EST LMTD (Routine) Timeframe: 2 Weeks Facility: [facility] - Location: Vein Center Ordered By: Romeo Pabon VC EXT Venous RT LMTD (Routine) Timeframe: 2 Weeks Facility: [facility] - Location: Vein Center Ordered By: Romeo Pabon Follow Up Appointments: 04/22/2024@1300 Plan of Treatment: f/u evaluation with physcian along with a right leg limited u/s Patient Instructions: Endovenous Ablation (DC) Print Language: Romanian Discharge Date/Time: 04/15/24 14:56
--- NOTE | 2024-04-15 13:02 | VEIN_ITS ---
[address] [address] Patient Name: YUMIKO FERNANDEZ MRN: [id number] date: 1935 Sex: F Assigned Patient Location: Current Patient Location: Accession/Order Number: [id number] Exam Date: 04/15/2024 13:05 Report Date: 04/15/2024 15:27 At the request of: JONAS GOODWIN Procedure: VC INJ Foam Sclerosant WUS LACEWORKER PROCEDURE: VC INJ Foam Sclerosant WUS LACEWORKER HISTORY: I83.813 - Varicose veins of bilateral lower extremities w... Pre-operative Diagnosis: CEAP class C6 venous insufficiency with pain, tenderness, edema and incompetent right saphenous vein(s), chronic venous insufficiency branch leg secondary to venous incompetence Post-operative Diagnosis: CEAP class C6 venous insufficiency with pain, tenderness, edema and incompetent right saphenous vein(s), chronic venous insufficiency branch leg secondary to venous incompetence Procedure Performed: 1. Ultrasound-guided microfoam chemical ablation with Varithenaregistered 2. Intraoperative ultrasound guidance Physician: Romeo Pabon M.D. Anesthesia: None Indications for Procedure: 89 year old female. Symptoms including lower extremity pain, swelling, dilated bulging veins for many years despite conservative medical therapy including medical compression stockings, exercise and analgesics. Prior procedures include endovenous laser ablation and microfoam chemical ablation. Multiple incompetent varicosities of the right leg. Duplex scan showed reflux and enlarged diameters up to 6 mm. The patient underwent informed consent including management options where the complications of infection, bleeding, pain, and skin injury were discussed. Particular attention was spent discussing thrombus extension and deep vein thrombosis as well as the possibility of pulmonary embolus and treatment with oral or injectable blood thinners. Procedure: The patient walked to the procedure room. All applicable staff donned appropriate apparel. A procedure timeout was performed to confirm correct patient, correct extremity, correct procedure, and correct room set-up including presence of all applicable supplies, devices, and drugs. A duplex ultrasound, performed by myself confirmed the location and incompetence of branch saphenous varicosities and their course was marked on the skin together with the dilated tributaries. The extent of treatment of the vein and the associated varicosities was determined through ultrasound mapping. The skin was prepped and then punctured with a butterfly needle and advanced under ultrasound guidance. The Varithenaregistered canister was activated and the canister was primed and purged as required in the instructions for use. Varithenaregistered was drawn into a sterile syringe. Varithenaregistered was slowly administered at 0.5-1.0 cc/second with close observation by ultrasound of its course in the vessels. Total volume utilized was: 14 mL (4 mL into a 5 mm varicosity mid medial lower leg; 10 mL into a 6 mm varicosity medial to the knee). Following administration of Varithenaregistered the leg was elevated and the patient was asked to repeatedly dorsiflex the ankle to limit flow of Varithenaregistered into perforating veins. Once appropriate spasm had been confirmed in the treated veins, the vascular catheter was removed from the leg and light pressure was applied over the puncture site for hemostasis. The common femoral and deep superficial veins were then evaluated for flow and compressibility prior to dressing placement. The lower extremity was kept elevated at 45 degrees above the horizontal and cording material was applied over the saphenous segments and tributaries to allow for eccentric compression over the target vessels including the targeted saphenous vein(s). A multilayer dressing was applied consisting of foam pads, coban and thigh-high 20-30 mm Hg compression elastic support hose were placed on the patient. The leg was lowered only after compression had been applied and the patient was immediately ambulatory. The patient ambulated 10 minutes under supervision and was without apparent concerns at time of release. Post-care instructions include advising patient to keep post-treatment bandages in place and dry for 48 hours, avoid extended periods of inactivity, avoid heavy exercise for one week, wear compression stockings on the treated leg continuously for two weeks, to walk daily for 10 minutes over the next month. The patient was instructed to take an anti-inflammatory medicine as needed and to follow up for color duplex scan of the Saphenous veins, the treated branch saphenous varicosities, the adjacent deep veins, and additional treatment within 7 days. PERSONNEL: Cecilio Mendoza RN Electronically authenticated by: ROMEO PABON Date: 04/15/2024 15:27
--- OUTSIDE RECORDS SUMMARY | 2024-04-15 13:10 | XMS_ITS ---
Author Name Auto Generated Organization OHIP Support Name Relationship Address Phone Lucas Chopra Next of Kin [address] [place] [place] [address] + Milkie, Cari Next of Kin [address] [place] [address] + DISE, KATELYNN Next of Kin Unknown Unavailable MILKIE, ENGLE Next of Kin [address] [place] [address] + DISE, KATELYNN Next of Kin Unknown Unavailable MILKIE, ENGLE Next of Kin [address] [place] [address] + MILKIE, ENGLE Next of Kin [address] [place] [address] + MILKIE, ENGLE Next of Kin [address] [place] [address] + Milkie, Lucas Next of Kin [address] [place] [address] + Milkie, [place] Next of Kin [address] [place] [address] + MILKIE, ENGLE Next of Kin [address] [place] [address] + Milkie, Lucas Next of Kin [address] [place] [address] + Milkie, Cari Next of Kin [address] [place] [address] + MILKIE, ENGLE Next of Kin [address] [place] [address] + Milkie, [place] Next of Kin [address] [place] [address] + Milkie, [place] Next of Kin [address] [place] [address] + Milkie, [place] Next of Kin [address] [place] [address] + Milkie, Cari Next of Kin [address] [place] [address] + MILKIE, ENGLE Next of Kin [address] [place] [address] + MILKIE, ENGLE Next of Kin [address] [place] [address] + Milkie, Lucas Next of Kin [address] [place] [address] + Milkie, Cari Next of Kin [address] [place] [address] + Milkie, Lucas Next of Kin [address] [place] [address] + Milkie, Cari Next of Kin [address] [place] [address] + Care Team Providers Care Expanded Function Dental Assistant Name Role Phone Apoorva Love Admitting Unavailable Apoorva Love Attending Unavailable Haresh Duncan Primary Care Unavailable Haresh Duncan Referring Unavailable Copsey, Melissa Admitting Unavailable Copsey, Melissa Attending Unavailable Haresh Duncan Primary Care Unavailable Jean Carlos Jimenez Admitting Unavailabl e Jean Carlos Jimenez Attending Unavailabl e Haresh Duncan Primary Care Unavailable Moni Wagoner Admitting Unavailable Moni Wagoner Attending Unavailable Haresh Duncan Primary Care Unavailable Emil Salinas Admitting Unavailable Emil Salinas Attending Unavailable Haresh Duncan Primary Care Unavailable Haresh Duncan Primary Care Unavailable Haresh Duncan Attending Unavailable Haresh Duncan Admitting Unavailable Rasta Romero Admitting Unavailable Surfield, Rasta Attending Unavailable Ball, Haresh Primary Care Unavailable BALL, HARESH E Primary Care Unavailable COLLIN, BEVERLY R Referring Unavailable BALL, HARESH E Primary Care Unavailable COLLIN, BEVERLY R Referring Unavailable BALL, HARESH E Primary Care Unavailable COLLIN, BEVERLY R Referring Unavailable BALL, HARESH E Primary Care Unavailable COLLIN, BEVERLY R Referring Unavailable ANNITA BAEZ Attending Unavailable BALL, HARESH E Primary Care Unavailable MCGOWANLIZETT N Attending Unavailable MCGOWANLIZETT N Admitting Unavailable COLLIN, BEVERLY R Attending Unavailable COLLIN, BEVERLY R Admitting Unavailable BALL, HARESH E Primary Care Unavailable BALL, HARESH E Primary Care Unavailable PETREY, ED K Referring Unavailable BALL, HARESH E Primary Care Unavailable PETREY, ED K Referring Unavailable BALL, HARESH E Primary Care Unavailable COLLIN, BEVERLY R Referring Unavailable BALL, HARESH E Primary Care Unavailable BALL, HARESH E Primary Care Unavailable BALL, HARESH E Primary Care Unavailable COLLIN, BEVERLY R Referring Unavailable COLLIN, BEVERLY R Attending Unavailable BALL, HARESH E Primary Care Unavailable BALL, HARESH E Primary Care Unavailable COLLIN, BEVERLY R Referring Unavailable BALL, HARESH E Primary Care Unavailable PETREY, ED K Referring Unavailable BALL, HARESH E Primary Care Unavailable COLLIN, BEVERLY R Referring Unavailable BALL, HARESH E Primary Care Unavailable COLLIN, BEVERLY R Referring Unavailable BALL, HARESH E Primary Care Unavailable PETREY, ED K Referring Unavailable BALL, HARESH E Primary Care Unavailable COLLIN, BEVERLY R Referring Unavailable BALL, HARESH E Primary Care Unavailable COLLIN, BEVERLY R Referring Unavailable BALL, HARESH E Primary Care Unavailable Esthela RAMOS Attending Unavailable BALL, HARESH E Primary Care Unavailable MCGOWANLIZETT DAY Attending Unavailable JOLIE HOLMAN Attending Unavailable RONY ANAYA Attending Unavailable RONY ANAYA Attending Unavailable JOLIE HOLMAN Attending Unavailable RONY ANAYA Attending Unavailable JOLIE HOLMAN Attending Unavailable JOLIE HOLMAN Attending Unavailable RONY ANAYA Attending Unavailable PROBLEMS DATE TYPE CONDITION / CODE ATTENDING STATUS [facility] 04/05/2024 Unknown Laceration witho ut foreign body, left lower leg, initial encounter / S81.812A(ICD-10) Melissa Alanis Active [facility] 12/18/2023 Active Atrial septal de fect / Q21.10(ICD-10) BEVERLY POLANCO [facility] 11/18/2023 Unknown Hemorrhage of an us and rectum / CE(ICD-10) Jean Carlos Jimenez [facility] 10/30/2023 Unknown Unspecified atri al fibrillation / CE(ICD-10) Apoorva Love [facility] 10/13/2023 Unknown Encounter for therapeutic drug level monitoring / CE(ICD-10) Haresh Duncan [facility] 08/06/2023 Active 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(ICD-10) [facility] 12/13/2021 Active Atrial fibrillat ion, chronic (HCC) / I48.20(ICD-10) [facility] 09/25/2023 Active Encounter for preprocedural cardiovascular examination / Z01.810(ICD-10) [facility] 09/25/2023 Active Chronic right-si ded heart failure (HCC) / I50.812(ICD-10) [facility] 09/25/2023 Active IGLESIAS (dyspnea on exertion) / R06.09(ICD-10) [facility] 08/06/2023 Active Permanent atrial fibrillation (HCC) / I48.21(ICD-10) [facility] 09/23/2023 Active Chronic diastoli c heart failure (HCC) / I50.32(ICD-10) [facility] 12/13/2021 Active Severe tricuspid regurgitation / I07.1(ICD-10) [facility] 12/13/2021 Active Stage 3a chronic kidney disease (HCC) / N18.31(ICD-10) [facility] 08/06/2023 Active Non-ischemic cardiomyopathy (HCC) / I42.8(ICD-10) [facility] 08/06/2023 Active Primary hyperten renate / I10(ICD-10) [facility] 05/27/2023 Unknown 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, including hip / CE(ICD-10) Rasta Romero [facility] 05/20/2023 Unknown Obstructive slee p apnea (adult) (pediatric) / CE(ICD-10) Emil Salinas Active [facility] PROCEDURES No Procedure Records Found RESULTS SURGICAL PATHOLOGY REFERENCE LAB CONSULT Collected: 01/01/2024 7:18 PM Status: F Source: [facility] REPOSITORY Order Comment: Specimen Type : FORMALIN-FIXED PARAFFIN-EMBEDDED TISSUE SPECIMEN Ordering Facility: [facility] Address: [facility] [place] [address] TYPE CODE TESTS RESULT OUT OF RANGE REFERENCE UNITS PATHOLOGY [id number] CASE REPORT Result Comment: Surgical Pat hology Report Case: [id number] Authorizing Provider: Shashank Welsh MD Collected: 01/01/2024 07:18 PM Ordering Location: [facility] Received: 01/01/2024 07:18 PM [facility] Pathologist: Marissa Tijerina MD Specimen: Slide(s), 1 SLIDE ([id number]) PATHOLOGY [id number] FINAL DIAGNOSIS Result Comment: A. Skin, lef t lower posterior leg, shave biopsy: - Superficial fragments of fibrinopurulent ulcer base, dermal acute inflammation, and vasculopathy, see comment. SR/CR 01/07/2024 OLOGY [id number] DIAGNOSIS COMMENT Result Comment: Thank you fo r allowing us to review this biopsy specimen [...] Please call the Dermatopathology Consultation Service at [phone] with questions or if additional follow-up information becomes available regarding this patient. This case was reviewed in conjunction with the Dermatopathology Fellow, Dr. Rawls. PATHOLOGY CDX2 CLINICAL HISTORY CONSULT REQUESTED PATHOLOGY LAB FINAL PERFORMING LAB Result Comment: Diagnostic i nterpretation performed at [facility], [facility] [address] CLIA# [id number] Rn Staffing: Guilherme Pham M.D. 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 Height: 167.64 cm BSA: 1.77 m? Weight: 67.59 kg BMI: 24.0 kg/m? Heart rate 70 bpm Blood pressure 122/56 [...] systolic function is normal. EF = 60 ? 5% (visual est.) - The right ventricle [...] * * Final * * * CC [facility] [facility] : [id number] PROCEDURE Observed: 12/18/2023 11:39 AM Status: COMPLETED Source: [facility] REPOSITORY HNO ID: [id number] Author: BEVERLY POLANCO MD Service: Cardiovascular Medicine [...] valve functioning TV: 3-4+ TR PV: 2+ MN Atrial septum: small membrane overlying prior iatrogenic ASD Bubble study: negative As there was no residual shunt we aborted the procedure. All equipment was removed and hemostasis achieved as above. Plan: Echo before discharge today Bed rest 3 hours Transferred to telemetry bed in stable condition Same day discharge Complications: None Please do not hesitate to contact me with questions. Please page [phone] after 5PM and on weekends. Manuel Cadet MD Interventional Mail Superintendent PGY8 December 18, 2023 11:40 AM ECG01 Observed: 12/18/2023 7:01 AM Status: F Source: [facility] REPOSITORY Ventricular Rate : 69 BPM Atrial Rate : 87 BPM QRS Duration : 98 ms Q-T Interval : 426 ms QTC Calculation(Bazett) : 456 ms Calculated R [place] : 6 degrees Calculated T [place] : 42 degrees ATRIAL FIBRILLATION INCOMPLETE RIGHT BUNDLE BRANCH BLOCK POSSIBLE ANTERIOR MYOCARDIAL INFARCTION , AGE UNDETERMINED ABNORMAL ECG Confirmed by MD HAMLET, PhD, JAYLA ([id number]) on 01/03/2024 4:00:18 PM NAME : CELIA CHOPRA PID : [id number] : 1935 Gender : Female Race : ORD : Procedure Date : Dec 18 2023 07:01:19 Edit Date : Jan 03 2024 16:00:24 Diagnosis: ATRIAL FIBRILLATION INCOMPLETE RIGHT BUNDLE BRANCH BLOCK POSSIBLE ANTERIOR MYOCARDIAL INFARCTION , AGE UNDETERMINED ABNORMAL ECG Confirmed by MD HAMLET, PhD, JAYLA ([id number]) on 01/03/2024 4:00:18 PM Test Reason : 921 Location : 23 : J21NS J21NS Overread By : MD HAMLET, PhD,JAYLA Edited By : MD HAMLET, PhD,JAYLA Referred By : BEVERLY POLANCO Acquired by : [id number], [employer] [facility] METAB 1999 PNL SERPL Collected: 12/2023 6:39 AM Status: F Source: [facility] REPOSITORY Order Comment: Specimen Type : BLOOD SPECIMEN Ordering Facility: [facility] Address: [address] [place] [address] TYPE CODE TESTS RESULT OUT OF RANGE REFERENCE UNITS LAB 2345-7(LOINC) Glucose SerPl-mCnc 129 High 74-99 mg/dL Result Comment: The [place] Diabetes Association (ADA) provides guidance for cutoff [...] Standards of Medical Care in Diabetes 2016, [place] Diabetes Association. Diabetes Care. 2016.39(Suppl 1). LAB 3094-0(LOINC) BUN SerPl-mCnc 35 High 7-21 mg/ dL LAB 2160-0(LOINC) Creat SerPl-mCnc 1.02 High 0.58-0.96 mg/dL LAB 2951-2(LOINC) Sodium SerPl-sCnc 138 136-144 mmol/L LAB 2823-3(LOINC) Potassium SerPl-sCnc 3.9 3.7-5.1 mmol/L LAB 2075-0(LOINC) Chloride SerPl-sCnc 101 97-105 mmol/L LAB 2028-9(LOINC) CO2 SerPl-sCnc 25 22-30 mmo l/L LAB 51637-4(LOINC) Anion Gap SerPl-sCnc 12 9-18 mmol/L LAB 07896-6(LOINC) Calcium SerPl-mCnc 9.4 8.5-10.2 mg/dL LAB 50541-9(LOINC) Creatinine + eGFR Pnl SerPlBld 53 Low >=60 mL/min/1 .73m??? Result Comment: Estimated Gl omerular Filtration Rate (eGFR) is calculated using the 2020 CKD-EPI creatinine equation. This equation utilizes serum creatinine, sex, and age as parameters. The creatinine assay has traceable calibration to isotope dilution-mass spectrometry. Refer to KDIGO guidelines for clinical interpretation. In patients with unstable renal function, e.g. those with acute kidney injury, the eGFR may not accurately reflect actual GFR. Performed By: #### [id number] # ### [facility] CLIA [id number] [address] [place] [address] [place] CBC PNL BLD AUTO Collected: 4 6:39 AM Status: F Source: [facility] REPOSITORY Order Comment: Specimen Type : BLOOD SPECIMEN Ordering Facility: [facility] Address: [address] [place] [address] TYPE CODE TESTS RESULT OUT OF RANGE REFERENCE UNITS LAB 6690-2(INC) WBC # Bld Auto 8.09 3.70-11.00 k/uL LAB 789-8(LOINC) RBC # Bld Auto 3.86 Low 3.90-5.20 m/uL LAB 718-7(LOINC) Hgb Bld-mCnc 11.8 11.5-15.5 g/dL LAB 4544-3(INC) Hct VFr Bld Auto 36.4 36.0-46.0 % LAB 787-2([facility]) MCV RBC Auto 94.3 80.0-100.0 fL LAB 785-6([facility]) MCH RBC Qn Auto 30.6 26.0-34.0 pg LAB 786-4([facility]) MCHC RBC Auto-mCnc 32.4 30.5-36.0 g/dL LAB 66815-1([facility]) RDW RBC-Rto 13.5 11.5-15.0 % LAB 777-3(INC) Platelet # Bld Auto 157 150-400 k/uL LAB 81577-8([facility]) PMV Bld Auto 10.5 9.0-12.7 fL LAB 771-6(INC) nRBC # Bld Auto <0.01 <0.01 k/uL Performed By: #### 34314-9 # ### [facility] CLIA [id number] [address] [place] [address] [place] Observed: 12/03/2023 3:15 PM Status: F Source: [facility] REPOSITORY Specimen: [id number] Received: 12/04/23 Status: CHELSY Rejohnson Num: [id number] Spec Type: Surgical Subm Dr: Melissa Alanis APRN Tissues: A Skin-Other than Cyst, tag, debridement or plastic repair (LT LOWER POST LEG) Procedures: HE, Gross/Micro L4 Age/ Patient Sex Location Account Attending Physician Celia Chopra 88/F [id number] Melissa Alanis APRN SPEC NUM: [id number] RECD: 12/04/23 STATUS: CHELSY CHENEY NUM: [id number] MECCA: 12/03/23-[address]: Melissa Alanis APRN ENTERED: 12/04/23 ANDI MCNEIL: JEAN MARIE TYPE: Surgical DEPT: S ORDERED: HE, Gross/Micro L4 ORDERED: HE, Gross/Micro L4 Supplemental Report Addendum 1 Entered: 01/09/24 Supplemental for findings of consultation report from [facility]: -Superficial fragments of fibrinopurulent ulcer base, dermal acute inflammation, and vasculopathy. See comment Note: -Please also see entire report on file for detailed description Addendum Signed (signature on file) Shashank-Nirmal Welsh MD 01/09/24 0918 ----- ------- Pathological Diagnosis Skin of left lower posterior leg, shave biopsy: - Superficial, scant cutaneous specimen featuring fibrinopurulent inflammatory ulcer exudate, sparse, benign squamous epithelium and granulation tissue with variably thrombosed small blood vessels. - Accompanying detached piece of laminated keratin. ----- ------- Specimen: [id number] Received: 12/04/23 Status: CHELSY Cheney Num: [id number] Spec Type: Surgical Subm Dr: Melissa Alanis APRN Tissues: A Skin-Other than Cyst, tag, debridement or plastic repair (LT LOWER POST LEG) Procedures: HE, Gross/Micro L4 ----- ------- Patient: Celia Chopra [id number] (Continued) ----- ------- Specimen: [id number] Received: 12/04/23 (Continued) Pathological Diagnosis (Continued) Signed (signature on file) Emil Kruse MD 12/05/23 1104 ----- ------- Specimen: [id number] Received: 12/04/23 Status: CHELSY Cheney Num: [id number] Spec Type: Surgical Subm Dr: Melissa Alanis APRN Tissues: A Skin-Other than Cyst, tag, debridement or plastic repair (LT LOWER POST LEG) Procedures: Tiburcio RAMÍREZ ----- ------- Patient: Celia Chopra [id number] (Continued) ----- ------- Specimen: [id number] Received: 12/04/23 (Continued) Pathological Diagnosis (Continued) - No malignancy. Clinical Information Nonhealing wound, history of melanoma Gross Description Received in formalin labeled with the patient's name, date of and left lower posterior leg is a 0.3 x 0.2 x 0.1 cm dwyer-white to brown tissue. Entirely submitted in one cassette labeled A1. CPT Codes 92364 ----- ------- ----- ------- Specimen: [id number] Received: 12/04/23 Status: CHELSY Cheney Num: [id number] Spec Type: Surgical Subm Dr: Melissa Alanis APRN Tissues: A Skin-Other than Cyst, tag, debridement or plastic repair (LT LOWER POST LEG) Procedures: DESIREE, Gross/Rhina L4 ----- ------- Patient: Celia Chopra [id number] (Continued) ----- ------- Signed (signature on file) Emil Kruse MD 12/05/23 1104 AEROBIC CULTURE Observed: 12/03/2023 3:15 PM Status: F Source: [facility] REPOSITORY Result Tab Codes Moderate Normal Skin Latesha 2 Days No Anaerobes Isolated 3 Days Gram Stain Result Rare White Blood Cells No Bacteria Seen PERFORMED BY: [facility] [address] [place] [address] PATHOLOGIST WINE STEWARD/STEWARDESS ARRON MEEKS M.D. Performed By: #### AERC #### [facility] [address] CNPN Observed: 12/02/2023 12:00 AM Status: COMPLETED Source: [facility] REPOSITORY Telephone (CATHMN) CELIA CHOPRA ([id number]) 1935 F Date Time Provider Department 12/02/23 BEVERLY POLANCO During your visit today, we recorded the following information about you: Stephenie Trevino 12/02/2023 9:54 AM Signed Patient called wanting to touch base. Pt has questions re procedure and wanted to inform you her wound hasn't closed yet but it is being treated. Pt asked for a call to discuss [phone] Ed Barlow APRN.JENNIFER 12/02/2023 10:08 AM Signed Spoke with patient who states no active infection--not on any antibiotics. Instructed to stop warfarin 3 days prior to cath and to contact her warfarin clinic for further instructions. This plan has been communicated with the patient who verbalized understanding and is in agreement. Ed Barlow APRN.SUPERVISOR PUBLIC HEALTH NURSING Allergies As of Date: 12/02/2023 Noted Allergy Reaction IODINE 09/18/2021 14 - Other: See Comments Comments: Per pt. was used at the dentist and she developed redness of face. This was quite awhile ago. PERCODAN (OXYCODONE-ASPIRIN) 09/18/2021 14 - Other: See Comments Comments: Per pt caused hallucinations. Date Reviewed: 09/25/2023 Reviewed by: Leisa Keating, RN - Fully Assessed Reason for [...] 10 mg by mouth twice daily. - multivit-min/iron/folic/lutein (CENTRUM SILVER WOMEN ORAL) Take by [...] Encounter Status:Closed by STEPHENIE TREVINO on 12/02/23 COMPLETE BLOOD COUNT AUTO DIFF Collected: 11/18/2023 10:00 AM Status: F Source: [facility] REPOSITORY TYPE CODE TESTS RESULT OUT OF RANGE REFERENCE UNITS LAB WBC White Blood Count 8.8 Normal 3.8-11.6 10*3/uL LAB UNWBC Uncorrected WBC 8.8 Normal 3.8-11.6 10*3/uL LAB RBC Red Blood Count 4.13 Normal 3.60-5.00 LAB HGB Hemoglobin 12.6 Normal 11.8-15.4 g/dL LAB HCT Hematocrit 38.3 Normal 34.0-46.4 % LAB MCV Mean Corpuscular Volume 92.8 Normal 80-100 fL LAB MCH Mean Corpuscular Hemoglobin 30.5 Normal 24.7-34.3 pg LAB MCHC Mean Corpuscular HGB Conc 32.9 Normal 32.0-35.0 g/dL LAB RDW Red Cell Distribution Width 14.4 Normal 11.9-15.3 % LAB PLT Platelet Count 185 Normal 150-450 10*3/uL LAB MPV Mean Platelet Volume 8.9 Normal 6.3-10.7 fL LAB NE% Neutrophils % (Auto) 75.6 . % LAB LY% Lymphocytes % (Auto) 11.1 . % LAB MO% Monocytes % (Auto) 9.9 . % LAB EO% Eosinophils % (Auto) 2.3 . % LAB BA% Basophils % (Auto) 1.1 . % LAB NRBC% NRBC% 0.1 Normal 0-0.5 /100{WBC } LAB NE# Neutrophils # (Auto) 6.7 Normal 1.8-7.7 10*3/uL LAB LY# Lymphocytes # (Auto) 1.0 Normal 1.00-4.8 10*3/uL LAB MO# Monocytes # (Auto) 0.9 High 0.0-0.8 10*3/uL LAB EO# Eosinophils # (Auto) 0.2 Normal 0.0-0.45 10*3/uL LAB BA# Basophils # (Auto) 0.1 Normal 0.0-0.2 10*3/uL Result Comment: PERFORMED BY : [place] [address] PATHOLOGIST WINE STEWARD/STEWARDESS ARRON MEEKS M.D. Performed By: #### CBC #### [address] PROTHROMBIN TIME INR Collected: 024 10:00 AM Status: F Source: [facility] REPOSITORY TYPE CODE TESTS RESULT OUT OF RANGE REFERENCE UNITS LAB R PT Prothrombin Time 14.9 High 9.0-12.9 s Result Comment: A hematocrit value greater than 55% may lead to inaccurate results in coagulation testing. Patients having hematocrit values >55% require a special collection tube for coagulation studies. Please contact the laboratory at [phone] for redraw instructions. LAB INR INR 1.3 Result Comment: INR Therapeu tic Range A) Pre- and Peroperative OAT started [...] valves: 3 - 4.5 Performed By: #### PTT, PT # ### [address] PARTIAL THROMBOPLASTIN TIME Collected: 11/18/2023 10: 00 AM Status: F Source: [facility] REPOSITORY TYPE CODE TESTS RESULT OUT OF RANGE REFERENCE UNITS LAB PTT Partial Thromboplastin Time 31.6 Normal 25.1-36.5 s Result Comment: A hematocrit value greater than 55% may lead to inaccurate results in coagulation testing. Patients having hematocrit values >55% require a special collection tube for coagulation studies. Please contact the laboratory at [phone] for redraw instructions. PERFORMED BY: [place] [address] PATHOLOGIST WINE STEWARD/STEWARDESS ARRON MEEKS M.D. Performed By: #### PTT, PT # ### [place] [id number] [facility] L Observed: 11/18/2023 12:00 AM Status: F Source: [facility] REPOSITORY Specimen: [id number] Received: 11/18/23 Status: CHELSY Cheney Num: [id number] Spec Type: Surgical Subm Dr: Jean Carlos Jimenez MD Tissues: A Colon Biopsy (SIGMOID) Procedures: HE/2, Gross/Micro L4 Age/ Patient Sex Location Account Attending Physician Celia Chopra 88/F [id number] Jean Carlos Jimenez MD SPEC NUM: [id number] RECD: 11/18/23 STATUS: CHELSY CHENEY NUM: [id number] MECCA: 11/18/23- SUBM DR: Jean Carlos Jimenez MD ENTERED: 11/18/23-1349 [facility] DR: SPEC TYPE: Surgical DEPT: S REC BY: [id number] ORDERED: HE/2, Gross/Micro L4 ORDERED: HE/2, Gross/Micro [...] Entirely submitted in one cassette labeled A1. ----- ------- Specimen: [id number] Received: 11/18/23 Status: CHELSY Nancy Num: [id number] Spec Type: Surgical Subm Dr: Jean Carlos Jimenez MD Tissues: A Colon Biopsy (SIGMOID) Procedures: HE/2, Gross/Micro L4 ----- ------- Patient: Celia Chopra Jesse [id number] (Continued) ----- ------- Specimen: [id number] Received: 11/18/23 (Continued) Signed (signature on file) Annemarie Welsh MD 11/20/23 1753 ----- ------- Specimen: [id number] Received: 11/18/23 Status: CHELSY Cheney Num: [id number] Spec Type: Surgical Subm Dr: Jean Carlos Jimenez MD Tissues: A Colon Biopsy (SIGMOID) Procedures: HE/Moise, Gross/Micro L4 ----- ------- Patient: KeyshaCelia L [id number] (Continued) ----- ------- Specimen: [id number] Received: 11/18/23 (Continued) CPT Codes 90745 ----- ------- ----- ------- Specimen: [id number] Received: 11/18/23 Status: CHELSY Cheney Num: [id number] Spec Type: Surgical Subm Dr: Jean Carlos Jimenez MD Tissues: A Colon Biopsy (SIGMOID) Procedures: HE/Moise, Gross/Micro L4 ----- ------- Patient: Celia Chopra [id number] (Continued) ----- ------- Signed (signature on file) Annemarie Welsh MD 11/20/23 1753 AEROBIC CULTURE Observed: 11/03/2023 2:46 PM Status: F Source: [facility] REPOSITORY No Growth 2 Days ORGANISM: Bacteroides fragilis (O:BACFRA) Comments Sent to [facility] for Sensitivity Testing Quantity of Growth Rare Growth Please see scanned report located in the EMR under the Diagnostics tab -> Scanned Lab Reports -> Laboratory. Gram Stain Result No Bacteria Seen PERFORMED BY: [place] [address] PATHOLOGIST WINE STEWARD/STEWARDESS ARRON MEEKS M.D. Performed By: #### AERC #### [address] BACTERIAL SUSC PNL ISLT DONIS Collected: 11/03/2023 2:4 6 PM Status: F Source: [facility] REPOSITORY Order Comment: Specimen Type : MICROBIAL ISOLATE Ordering Facility: [facility] Address: [address] [place] [address] TYPE CODE TESTS RESULT OUT OF RANGE REFERENCE UNITS LAB 68629-0([facility] ) Microorganism Spec Cult [id number] Abnormal Result Comment: Bacteroides fragilis group Specifically Bacteroides fragilis as identified by client. Bacteroides spp. are intrinsically resistant to ampicillin, penicillin, and aminoglycosi Performed By: #### 59257-8, 48009-9 #### [facility] CLIA [id number] [address] [place] [address] STATES OF [facility] BACTERIAL SUSC PNL ISLT GRAD STRIP Collected: 11/03/2023 2:46 PM Status: F Source: [facility] REPOSITORY Order Comment: Ordering Faci lity: [facility] Address: [address] [place], [place] [address] TYPE CODE TESTS RESULT OUT OF RANGE REFERENCE UNITS LAB 91272-9(LOINC ) Ampicillin+Sulb ac Susc Islt 0.5 Susceptible Susceptible <=8 , Intermediate >8 , Resistant >16 LAB 86720-8(LOINC ) Ertapenem Islt DONIS 0.125 Susceptible Susceptible <=4 , Intermediate >4 , Resistant >8 LAB 13047-0(LOINC ) metroNIDAZOLE Susc Islt 0.25 Susceptible Performed By: #### 24213-3, 25238-5 #### [facility] CLIA [id number] [address] [id number] [place] STATES OF [place] CNPN Observed: 10/23/2023 12:00 AM Status: COMPLETED Source: [facility] REPOSITORY Telephone (CARDMN) CELIA CHOPRA ([id number]) 1935 F Date Time Provider Department 10/23/23 SHAMA BAGLEY CARDNY During your visit today, we recorded the following information about you: Shama Prescott 10/23/2023 4:04 PM Signed Patient called [...] caused hallucinations. Date Reviewed: 09/25/2023 Reviewed by: Leisa Keating, RN - Fully Assessed Reason for [...] 10 mg by mouth twice daily. - multivit-min/iron/folic/lutein (CENTRUM SILVER WOMEN ORAL) Take by [...] Encounter Status:Closed by SHAMA PRESCOTT on 10/23/23 JENNIFERN Observed: 10/20/2023 12:00 AM Status: COMPLETED Source: [facility] REPOSITORY Telephone (CATHMN) CELIA CHOPRA ([id number]) 1935 F Date Time Provider Department 10/20/23 ED BARLOW During your visit today, we recorded the following information about you: Ed Barlow APRN.JENNIFER 10/20/2023 10:58 AM Signed Spoke to the [...] caused hallucinations. 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 - multivit-min/iron/folic/lutein (CENTRUM SILVER WOMEN ORAL) Take by [...] Encounter Status:Closed by ED BARLOW on 10/20/23 ANTONIO Observed: 10/15/2023 12:00 AM Status: COMPLETED Source: [facility] REPOSITORY Telephone (CATHMN) CELIA CHOPRA ([id number]) 1935 F Date Time Provider Department 10/15/23 BEVERLY POLANCO CATHMN During your visit today, we recorded the following information about you: Elsy Romano HUC 10/15/2023 9:14 AM Signed Pt called back [...] come to the ASD closure. Regis Rajput APRN.SUPERVISOR PUBLIC HEALTH NURSING 10/15/2023 10:00 AM Signed Call to patient [...] caused hallucinations. Date Reviewed: 09/25/2023 Reviewed by: Leisa Keating, RN - Fully Assessed Reason for [...] 10 mg by mouth twice daily. - multivit-min/iron/folic/lutein (CENTRUM SILVER WOMEN ORAL) Take by [...] Encounter Status:Closed by REGIS RAJPUT on 10/15/23 JENNIFERN Observed: 10/15/2023 12:00 AM Status: COMPLETED Source: [facility] REPOSITORY Telephone (CATHMN) CELIA CHOPRA ([id number]) 1935 F Date Time Provider Department 10/15/23 PAVEL SYED [facility] During your visit today, we recorded the [...] is requesting a call back kashmir please [phone] Regis Rajput APRN.SUPERVISOR PUBLIC HEALTH NURSING 10/16/2023 3:45 PM Signed Patient rescheduled from the office Allergies As of Date: 10/15/2023 Noted Allergy Reaction IODINE 09/18/2021 14 - Other: See Comments Comments: Per pt. was used at the dentist and she developed redness of face. This was quite awhile ago. PERCODAN (OXYCODONE-ASPIRIN) 09/18/2021 14 - Other: See Comments Comments: Per pt caused hallucinations. Date Reviewed: 09/25/2023 Reviewed by: Leisa Keating, QUENTIN - Fully Assessed Reason for [...] 10 mg by mouth twice daily. - multivit-min/iron/folic/lutein (CENTRUM SILVER WOMEN ORAL) Take by [...] Encounter Status:Closed by REGIS RAJPUT on 10/16/23 STOOL OCCULT BLOOD (GUAIAC) Observed: 10/14/2023 6:10 PM Status: F Source: [facility] REPOSITORY Occult Blood Positive for Occult Blood by Guaiac Methodology Reference range = Negative PERFORMED BY: [place] [address] PATHOLOGIST WINE STEWARD/STEWARDESS ARRON MEEKS M.D. Performed By: #### OB(GUAIAC ) #### [address] COMPLETE BLOOD COUNT AUTO DIFF Collected: 10/14/2023 2:25 PM Status: F Source: [facility] REPOSITORY TYPE CODE TESTS RESULT OUT OF RANGE REFERENCE UNITS LAB WBC White Blood Count 6.9 Normal 3.8-11.6 10*3/uL LAB UNWBC Uncorrected WBC 6.9 Normal 3.8-11.6 10*3/uL LAB RBC Red Blood Count 4.21 Normal 3.60-5.00 LAB HGB Hemoglobin 13.1 Normal 11.8-15.4 g/dL LAB HCT Hematocrit 38.4 Normal 34.0-46.4 % LAB MCV Mean Corpuscular Volume 91.3 Normal 80-100 fL LAB MCH Mean Corpuscular Hemoglobin 31.1 Normal 24.7-34.3 pg LAB MCHC Mean Corpuscular HGB Conc 34.1 Normal 32.0-35.0 g/dL LAB RDW Red Cell Distribution Width 13.7 Normal 11.9-15.3 % LAB PLT Platelet Count 183 Normal 150-450 10*3/uL LAB MPV Mean Platelet Volume 8.9 Normal 6.3-10.7 fL LAB MDW Monocyte Distribution Width 20.20 High 0.00-20.00 % Result Comment: For adults i n ED, MDW > 20.0 may be associated with a higher risk of sepsis during the first 12 hrs of hospital admission LAB NE% Neutrophils % (Auto) 65.3 . % LAB LY% Lymphocytes % (Auto) 17.7 . % LAB MO% Monocytes % (Auto) 11.5 . % LAB EO% Eosinophils % (Auto) 4.3 . % LAB BA% Basophils % (Auto) 1.2 . % LAB NRBC% NRBC% 0.1 Normal 0-0.5 /100{WBC } LAB NE# Neutrophils # (Auto) 4.5 Normal 1.8-7.7 10*3/uL LAB LY# Lymphocytes # (Auto) 1.2 Normal 1.00-4.8 10*3/uL LAB MO# Monocytes # (Auto) 0.8 Normal 0.0-0.8 10*3/uL LAB EO# Eosinophils # (Auto) 0.3 Normal 0.0-0.45 10*3/uL LAB BA# Basophils # (Auto) 0.1 Normal 0.0-0.2 10*3/uL Result Comment: PERFORMED BY : [place] [address] PATHOLOGIST WINE STEWARD/STEWARDESS ARRON MEEKS M.D. Performed By: #### PT, CBC, CMP, PTT #### [address] COMPREHENSIVE METABOLIC PANEL Collected: 10/14/2023 2 :25 PM Status: F Source: [facility] REPOSITORY TYPE CODE TESTS RESULT OUT OF RANGE REFERENCE UNITS LAB GLU Glucose 109 High 70-100 mg/dL Result Comment: Random Gluco se Reference Range is dependent on time and content of last meal. Glucose of more than 200 mg/dL in a nonstressed, ambulatory subject supports the diagnosis of Diabetes Mellitus. ADA recommended reference range LAB BUN Blood Urea Nitrogen 31 High 7-25 mg/d L LAB CREATT Creatinine 1.17 Normal 0.60-1.20 mg/dL LAB GFReNR Estimated GFR 45.163 LAB NA Sodium 137 Normal 136-145 mmol/L LAB K Potassium 3.8 Normal 3.5-5.1 mmol/L LAB CL Chloride 98 Normal 98-107 mmol/L LAB CO2 Carbon Dioxide 30.5 Normal 21.0-31.0 mmol/L LAB GAP Anion Gap 12.3 Normal 6.0-15.0 LAB CA Calcium 9.7 Normal 8.6-10.3 mg/dL LAB TP Total Protein 7.7 Normal 6.4-8.9 g/dL LAB ALB Albumin Level 4.2 Normal 3.5-5.7 g/dL LAB GLOB Globulin 3.5 g/dL LAB AGRATIO Albumin/Globulin Ratio 1.2 LAB BILIT Bilirubin,Total 1.1 High 0.3-1.0 mg/dL LAB AST Aspartate Amino Transferase 21 Normal 13-39 U/L LAB ALT Alanine Aminotransferase 10 Normal 7-52 U/L LAB ALP Alkaline Phosphatase 100 Normal 34-104 U/L LAB CRCLPHA Creatinine Clr C alc Pharmacy 31.71 Result Comment: PERFORMED BY : [place] [address] PATHOLOGIST WINE STEWARD/STEWARDESS ARRON MEEKS M.D. Performed By: #### PT, CBC, CMP, PTT #### [address] PROTHROMBIN TIME INR Collected: 10/14/2023 2:25 PM S tatus: F Source: [facility] REPOSITORY TYPE CODE TESTS RESULT OUT OF RANGE REFERENCE UNITS LAB R PT Prothrombin Time 27.9 High 9.0-12.9 s Result Comment: A hematocrit value greater than 55% may lead to inaccurate results in coagulation testing. Patients having hematocrit values >55% require a special collection tube for coagulation studies. Please contact the laboratory at [phone] for redraw instructions. LAB INR INR 2.5 Result Comment: INR Therapeu tic Range A) Pre- and Peroperative OAT started [...] valves: 3 - 4.5 Performed By: #### PT, CBC, CMP, PTT #### [facility] [address] [place] [address] [facility] PARTIAL THROMBOPLASTIN TIME Collected: 10/14/2023 2:2 5 PM Status: F Source: [facility] REPOSITORY TYPE CODE TESTS RESULT OUT OF RANGE REFERENCE UNITS LAB PTT Partial Thromboplastin Time 38.8 High 25.1-36.5 s Result Comment: A hematocrit value greater than 55% may lead to inaccurate results in coagulation testing. Patients having hematocrit values >55% require a special collection tube for coagulation studies. Please contact the laboratory at [phone] for redraw instructions. PERFORMED BY: [place] [address] PATHOLOGIST WINE STEWARD/STEWARDESS ARRON MEEKS M.D. Performed By: #### PT, CBC, CMP, PTT #### [facility] [address] [place], [place] [id number] [facility] CNPN Observed: 10/13/2023 12:00 AM Status: COMPLETED Source: [facility] REPOSITORY Telephone (CATHMN) CELIA CHOPRA ([id number]) 1935 F Date Time Provider Department 10/13/23 BEVERLY POLANCO During your visit today, we recorded the following information about you: Stephenie Trevino 10/13/2023 12:18 PM Signed Patient called office wanting to speak to one of the nurses. Pt has a cath on and has some other health concerns and wanted to discuss to see if she should proceed with cath or reschedule. [phone] Yamilet Brody 10/13/2023 2:36 PM Signed Call [...] call her in the AM Regis Rajput APRN.JENNIFER 10/14/2023 1:17 PM Signed Call back to [...] caused hallucinations. Date Reviewed: 09/25/2023 Reviewed by: Leisa Keating, RN - Fully Assessed Reason for Visit: Patient Question [1767] Prescriptions as of 10/14/2023 - diphenhydrAMINE (BENADRYL) [...] 10 mg by mouth twice daily. - multivit-min/iron/folic/lutein (CENTRUM SILVER WOMEN ORAL) Take by [...] Encounter Status:Closed by STEPHENIE TREVINO on 10/13/23 PROGRESS Observed: 09/26/2023 7:27 AM Status: COMPLETED Source: [facility] REPOSITORY HNO ID: [id number] Author: ED BARLOW APRN.JENNIFER Service: ? Author Type: Nurse Practitioner Type: Progress Notes Filed: 09/30/2023 16:16 Note Text: Multidisciplinary Cardiac Team Review TRANSCATHETER MITRAL and TRICUSPID THERAPIES (TMTT) The below documentation is based on a mitral / tricuspid valve team discussion amongst the multidisciplinary team Attendees: Dr. Moreira, Dr. Oropeza, Dr Serrano, Dr Dunbar, Dr Abner Martinez, Dr. Syed, , Dr Fiore. Dr. 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 She should also sign consent to TRISCEND for an image review in the event TR remains severe or worsens. Spoke with Ms Chopra who agrees with the plan of care. Instructed her to stop her warfarin at least 2 days prior. Ed Barlow APRN.CNP PROGRESS Observed: 09/25/2023 12:55 PM Status: COMPLETED Source: [facility] REPOSITORY HNO ID: [id number] Author: ANNITA BAEZ MD Service: ? Author Type: Physician Type: Progress Notes Filed: 09/25/2023 13:00 Note Text: [facility] DEPARTMENT OF CARDIAC SURGERY OUTPATIENT VISIT DATE September 25, 2023 OUTPATIENT VISIT SERVICE DATE: 09/25/2023 SERVICE TIME: 12:55 PM PCP: Haresh Duncan ([facility]) [address] [place] [address] Referring Physician: Beverly Polanco [address] [facility] [address] Patient Type: New Visit to Determine Surgery: [...] in caliber with mild scattered calcific changes. Printed Circuit Board Pcb Designer: [facility] Transcribe Date/Time: Sep 23 2023 2:58P Dictated [...] risk for cardiac surgery. Annita Baez MD ECHO TRANSESOPHAGEAL Observed: 11:31 AM Status: C Source: [facility] REPOSITORY Echocardiography Report: Tra nsesophageal Echo [facility] J1-5 Date of service: 09/25/2023 11:31:22 AM SONAR TECHNICIAN Ordering physician: BEVERLY POLANCO Indication: TR Technologist: [...] systolic function is normal. EF = 60 ? 5% (visual est.) - The right ventricle [...] the prior CC echocardiographic exam performed on 09/23/23. TR mechanism better appreciated on today's exam. * * * Final (Updated) * * * CC [facility] : [id number] NURSING PROG Observed: 09/25/2023 11:18 AM Status: COMPLETED Source: [facility] REPOSITORY HNO ID: [id number] Author: SAMANTHA HARVEY RN Service: ? Author Type: Registered Nurse Type: Nursing Progress Note Filed: 09/25/2023 12:41 Note Text: AMBULATORY PATIENT EDUCATION TOPIC: MARLYN READINESS TO LEARN COGNITIVE ABILITY: Alert and oriented MOTIVATION TO LEARN: Eager FAMILY SUPPORT: None - Unavailable/disinterested INSTRUCTION PROVIDED TO: Patient PATIENT LEARNS BEST [...] By Samantha Harvey RN In Department: CARDIOLOGY CNOV Observed: 09/25/2023 10:30 AM Status: COMPLETED Source: [facility] REPOSITORY Office Visit (CAFLMN) CELIA CHOPRA ([id number]) 1935 F Date Time Provider Department 09/25/23 10:30 AM TRANSESOPHAGEAL ECHO CARD MAINCAFLMN During your visit today, we recorded the following information about you: Temperature Pulse Respiration Blood pressure 97.7 degrees 67/minute 16/minute 146/67 Samantha Harvey RN 09/25/2023 12:41 PM Signed AMBULATORY PATIENT EDUCATION TOPIC: MARLYN READINESS TO LEARN COGNITIVE ABILITY: Alert and oriented MOTIVATION TO LEARN: Eager FAMILY SUPPORT: None - Unavailable/disinterested INSTRUCTION PROVIDED TO: Patient PATIENT LEARNS BEST [...] By Samantha Harvey RN In Department: CARDIOLOGY Referring Provider: BEVERLY POLANCO [953] Allergies As of Date: 09/25/2023 Noted Allergy Reaction IODINE 09/18/2021 14 - Other: See Comments Comments: Per pt. was used at the dentist and she developed redness of face. This was quite awhile ago. PERCODAN (OXYCODONE-ASPIRIN) 09/18/2021 14 - Other: See Comments Comments: Per pt caused hallucinations. Date Reviewed: 09/25/2023 Reviewed by: Leisa Keating RN - Fully Assessed Visit Diagnoses:Encounter for preprocedural cardiovascular examination [Z01.810] Nonrheumatic tricuspid valve regurgitation [I36.1] Chronic right-sided heart failure (HCC) [I50.812] IGLESIAS (dyspnea on exertion) [R06.09] Atrial fibrillation, chronic (HCC) [I48.20] Order(s):ECHO TRANSESOPHAGEAL [94461981] Order #: [id number]: 1 [] lidocaine urojet 2 % topical [...] 10 mg by mouth twice daily. - multivit-min/iron/folic/lutein (CENTRUM SILVER WOMEN ORAL) Take by [...] APPLI* 09/25/2023 09/25/2023 BENZOCAINE 20% TOPICAL SPRAY 09/25/2023 09/25/2023 Route: TOPICAL FENTANYL (PF) 50 MCG/ML INJECTION SO* 09/25/2023 09/25/2023 Route: INTRAVENOUS MIDAZOLAM (PF) 1 MG/ML INJECTION SWAPNA* 09/25/2023 09/25/2023 Route: INTRAVENOUS Encounter Status:Closed by LEISA KEATING on 09/25/23 CNOV Observed: 09/25/2023 8:30 AM Status: COMPLETED Source: [facility] REPOSITORY Office Visit (TOMN) CELIA CHOPRA ([id number]) 1935 F Date Time Provider Department 09/25/23 8:30 AM ANNITA BAEZ [facility] During your visit today, we recorded the following information about you: Annita Baez MD 09/25/2023 1:00 PM Signed [facility] DEPARTMENT OF CARDIAC SURGERY OUTPATIENT VISIT DATE September 25, 2023 OUTPATIENT VISIT SERVICE DATE: 09/25/2023 SERVICE TIME: 12:55 PM PCP: Haresh Duncan ([facility]) [address] [place] [address] Referring Physician: Beverly Polanco [address] [facility] [address] Patient Type: New Visit to Determine Surgery: [...] in caliber with mild scattered calcific changes. Printed Circuit Board Pcb Designer: [employer] Transcribe Date/Time: Sep 23 2023 2:58P Dictated [...] caused hallucinations. Date Reviewed: 09/25/2023 Reviewed by: Leisa Keating RN - Fully Assessed Primary Visit [...] 10 mg by mouth twice daily. - multivit-min/iron/folic/lutein (CENTRUM SILVER WOMEN ORAL) Take by [...] peripheral vascular diseases (H*09/25/2023 Encounter Status:Closed by ANNITA BAEZ on 09/25/23 CARD CATH DIAGNOSTIC Observed: 11:44 AM Status: F Source: [facility] REPOSITORY Site Id: [facility] Lab #: [facility] HVI Account Auditor 4 Study Date: 09/24/2023 Start Time: 09/24/2023 11:44:39 AM End Time: 09/24/2023 12:58:17 PM Physician Name Lizett Mcgowan M.D., Evan M.D. Nursing/Seema Lebron R.N., C R.N. Brucchieri, M. RConnor + + PATIENT INFORMATION + + Name: MRS. CELIA CHOPRA : 1935 Age: 88 years Gender: F Height: 66 in / 168 cm Weight: 149.00 lb / 67.59 kg BMI: 23.95 kg/m? BSA: 1.77 m? + + CLINICAL HISTORY/INDICATION(s) + + Suspected pulmonary artery hypertension/equivocal or borderline elevated estimated right ventricular systolic pressure on resting echocardiogram; AUC score = 7Preoperative assessment before valvular surgery; AUC score = 7. 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 There is mild diffuse [...] branch which appears to fill retrograde via [id number] collaterals arising from the apical LAD. - Engagement of left radial to first diagonal graft not attempted given known to be occluded in context of patient age and renal dysfunction. - Otherwise mild diffuse coronary artery disease. - Right-dominant system. 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 - Reduced CO/CI by Artem method (3.29/1.86). Yamil preseved (4.0). Recommended Treatment: Medical Therapy and Valve repair / replacement. Plan: - Optimal medical therapy and risk factor modification for coronary artery disease and valvular heart disease. - Proceed with ongoing evaluation for possible tricuspid valve intervention. + + ADVERSE OUTCOME(s)/COMPLICATION(s) + + None + + PROCEDURAL & TECHNICAL DETAILS + + PROCEDURE SEQUENCE: Time Procedure Performed 09/24/2023 12:11:17 PM Cardiac Outputs 09/24/2023 12:11:19 PM Oxygen Determination 09/24/2023 12:11:20 PM Right Heart Cath 09/24/2023 12:41:55 PM Left Heart Cath PROCEDURE DETAILS: Contrast: Contrast Type Total Infused Omnipaque 150ml 20 Blood Loss: < 30ml Specimen: No Specimen Obtained RADIATION: Procedure performed under Fluoroscopic Guidance Total Dose Dose Area Product Total Exposure Time 179.60 mGy 11.66 Gy*cm? 600.00 sec + + MEDICAL HISTORY + + Left Ventricle EF: 54% by Echo. Physician Intra Service Procedure Start Time: 09/24/2023 11:54:16 AM Physician Intra Service Procedure End Time: 09/24/2023 12:58:17 PM Attending Physician Presence Attestation: Electronically submitted by: Lizett Mcgowan MD On: 09/25/2023 at 8:33:23 AM Final CC [facility] : [id number] See Link below for Image ANTONIO Observed: 09/24/2023 12:00 AM Status: COMPLETED Source: [facility] REPOSITORY Telephone (CAFN) CELIA CHOPRA ([id number]) 1935 F Date Time Provider Department 09/24/23 LORENZA FOX During your visit today, we recorded the following information about you: Lorenza Fox RN 09/24/2023 10:16 AM Signed ECHO LAB TELEPHONE INSTRUCTIONS: Learning Response: Instructions provided to: Patient Procedure: MARLYN Pre procedure education topics: Arrival time, NPO status, Medications, Travel, and Accompanied by a responsible adult Instructions/Restrictions Patient/Family Response Evaluation: Verbalizes understanding Follow Up Plan and Medication: As directed by physician Instruction/Supplemental Material Given: Appointment Information and Procedure/Test Specific [...] QUENTIN - Fully Assessed Reason for Visit: Reminder Call [3475] Cmt: marlyn Prescriptions as of 09/24/2023 - [...] 10 mg by mouth twice daily. - multivit-min/iron/folic/lutein (CENTRUM SILVER WOMEN ORAL) Take by [...] Encounter Status:Closed by LORENZA FOX on 09/24/23 PROGRESS Observed: 09/23/2023 2:45 PM Status: COMPLETED Source: [facility] REPOSITORY HNO ID: [id number] Author: JOHANNY CHAMBERS RT(R) Service: Radiology Author [...] BY: RT Tatyana(R) September 23, 2023 1:50 PM PROGRESS Observed: 09/23/2023 2:45 PM Status: COMPLETED Source: [facility] REPOSITORY HNO ID: [id number] Author: MANDEEP KIRKPATRICK RN Service: ? Author [...] Chopra DATE: September 23, 2023 TIME: 12:[address] CARDIAC W IVCON Observed: 09/23/2023 1:53 PM Status: F Source: [facility] REPOSITORY * * *Final Report* * * DATE [...] TECHNIQUE: SCANNER:out-patient Siemens Definition Force Dual source [id number] scanner PROTOCOL: Retrospective gated imaging of the [...] AORTIC DIMENSIONS: AORTIC ROOT: 3.9 cm measured qcylv-dw-uqzzv, prior 3.8 cm on direct comparison 11/07/2021. mid ASCENDING THORACIC AORTA: 3.6 cm mid AORTIC ARCH: 2.7 cm mid DESCENDING THORACIC AORTA: 2.4 cm limited upper ABDOMEN: Atrophic kidneys. Prominence of IVC and intrahepatic veins. BONES: degenerative changes of the thoracic spine and scoliosis. Metal Bending Machine Operator (topogram) images: No additional findings. IMPRESSION: - [...] in caliber with mild scattered calcific changes. Printed Circuit Board Pcb Designer: NICK Transcribe Date/Time: Sep 23 2023 2:58P Dictated by : JANKI MARTINEZ MD This examination was interpreted and the report reviewed and electronically signed by: GINGER EVANS MD on Sep 23 2023 4:13PM EST [id number] PNL PPP Collected: 11:59 AM Status: F Source: [facility] REPOSITORY Order Comment: Specimen Type : BLOOD SPECIMEN Ordering Facility: [facility] Address: [place] [address] TYPE CODE TESTS RESULT OUT OF RANGE REFERENCE UNITS LAB 5902-2(LOINC) Prothrombin time 14.0 High 9.7-13.0 sec LAB 6301-6(LOINC) INR PPP 1.3 0.9-1.3 Result Comment: Vitamin K An tagonist (VKA) Therapeutic Range: INR 2 to 3 (Target INR of 2.5) Note: For patients treated with VKA drugs, such as warfarin, the [employer] 2012 Guideline recommends [...] 2.5 to 3.5 (target INR of 3). Thaistt GH, et al. Chest 2012, 141:7S-47S Concetta RA, et al. [facility] 2017, 70: 252-289 Performed By: #### 11671-6 # ### [facility] CLIA [id number] [facility] [id number] [place] [address] [place] COMP METAB 2000 PNL SERPL Collected: 11:59 AM Status: F Source: [facility] REPOSITORY Order Comment: Specimen Type : BLOOD SPECIMEN Ordering Facility: [facility] Address: [place] [address] TYPE CODE TESTS RESULT OUT OF RANGE REFERENCE UNITS LAB 2885-2(LOINC) Prot SerPl-mCnc 7.8 6.3-8.0 g/dL LAB 1751-7(LOINC) Albumin SerPl-mCnc 4.3 3.9-4.9 g/dL LAB 39412-0(LOINC) Calcium SerPl-mCnc 10.0 8.5-10.2 mg/dL LAB 1975-2(LOINC) Bilirub SerPl-mCnc 0.8 0.2-1.3 mg/dL LAB 6768-6(LOINC) ALP SerPl-cCnc 118 34-123 U/L LAB 1920-8(LOINC) AST SerPl-cCnc 23 13-35 U/L LAB 1742-6(LOINC) ALT SerPl-cCnc 10 7-38 U/L LAB 2345-7(LOINC) Glucose SerPl-mCnc 153 High 74-99 mg/dL Result Comment: The [place] Diabetes Association (ADA) provides guidance for cutoff [...] Standards of Medical Care in Diabetes 2016, [place] [employer] Association. Diabetes Care. 2016.39(Suppl 1). LAB 3094-0(LOINC) BUN SerPl-mCnc 34 High 7-21 mg/ dL LAB 2160-0(LOINC) Creat SerPl-mCnc 1.09 High 0.58-0.96 mg/dL LAB 2951-2(LOINC) Sodium SerPl-sCnc 140 136-144 mmol/L LAB 2823-3(LOINC) Potassium SerPl-sCnc 4.1 3.7-5.1 mmol/L LAB 2075-0(LOINC) Chloride SerPl-sCnc 100 97-105 mmol/L LAB 2028-9(LOINC) CO2 SerPl-sCnc 26 22-30 mmo l/L LAB 54711-8(LOINC) Anion Gap SerPl-sCnc 14 9-18 mmol/L LAB 55170-0(LOINC) Creatinine + eGFR Pnl SerPlBld 49 Low >=60 mL/min/1 .73m??? Result Comment: Estimated Gl omerular Filtration Rate (eGFR) is calculated using the 2020 CKD-EPI creatinine equation. This equation utilizes serum creatinine, sex, and age as parameters. The creatinine assay has traceable calibration to isotope dilution-mass spectrometry. Refer to KDIGO guidelines for clinical interpretation. In patients with unstable renal function, e.g. those with acute kidney injury, the eGFR may not accurately reflect actual GFR. Performed By: #### 22355-2, 90985-0 #### [facility] CLIA [id number] [address] [place] [address] NT-PROBNP SERPL-MCNC Collected: 11:59 AM Status: F Source: [facility] REPOSITORY Order Comment: Specimen Type : BLOOD SPECIMEN Ordering Facility: [facility] Address: [address] [place] [address] TYPE CODE TESTS RESULT OUT OF RANGE REFERENCE UNITS LAB 56783-0([facility]) NT-proBNP SerPl-mCnc 2620 High <450 pg/mL Performed By: #### 28132-7, 83572-9 #### [facility] CLIA [id number] [address] [place] [address] STATES OF [place] CBC W AUTO DIFF BLD Collected: 09/23/2023 11:59 AM S tatus: F Source: [facility] REPOSITORY Order Comment: Specimen Type : BLOOD SPECIMEN Ordering Facility: [facility] Address: [address] [place] [address] TYPE CODE TESTS RESULT OUT OF RANGE REFERENCE UNITS LAB 6690-2(LOINC) WBC # Bld Auto 5.47 3.70-11.00 k/uL LAB 789-8(LOINC) RBC # Bld Auto 4.45 3.90-5.20 m/ uL LAB 718-7(LOINC) Hgb Bld-mCnc 13.5 11.5-15.5 g/dL LAB 4544-3(LOINC) Hct VFr Bld Auto 42.4 36.0-46.0 % LAB 787-2(LOINC) MCV RBC Auto 95.3 80.0-100.0 fL LAB 785-6(LOINC) MCH RBC Qn Auto 30.3 26.0-34.0 p g LAB 786-4(INC) MCHC RBC Auto-mCnc 31.8 30.5-36.0 g/dL LAB 59115-2([facility]) RDW RBC-Rto 13.1 11.5-15.0 % LAB 777-3([facility]) Platelet # Bld Auto 186 150-400 k/uL LAB 32122-0([facility]) PMV Bld Auto 11.0 9.0-12.7 fL LAB 770-8([facility]) Neutrophils/leuk NFr Bld Auto 78.1 % LAB 751-8([facility]) Neutrophils # Bld Auto 4.27 1.45-7.50 k/uL LAB 736-9([facility]) Lymphocytes/leuk NFr Bld Auto 18.6 % LAB 731-0([facility]) Lymphocytes # Bld Auto 1.02 1.00-4.00 k/uL LAB 5905-5([facility]) Monocytes/leuk NFr Bld Auto 2.7 % LAB 742-7([facility]) Monocytes # Bld Auto 0.15 <0.87 k/uL LAB 713-8([facility]) Eosinophil/leuk NFr Bld Auto 0.0 % LAB 711-2([facility]) Eosinophil # Bld Auto <0.03 <0.46 k/uL LAB 706-2([facility]) Basophils/leuk NFr Bld Auto 0.4 % LAB 704-7([facility]) Basophils # Bld Auto <0.03 <0.11 k/uL LAB 38874-4([facility]) Imm Granulocytes/sandie k NFr Bld Auto 0.2 % LAB 10913-0([facility]) Imm Granulocytes # Bld Auto <0.03 <0.10 k/uL LAB 31548-5([facility]) nRBC/100 WBC Bld-Rto 0.0 /100 WBC LAB 771-6([facility]) nRBC # Bld Auto <0.01 <0.01 k/u L LAB 43893-9([facility]) Differential method Bld Auto Performed By: #### 27243-4 # ### [facility] IA [id number] [address] [place] [address] [facility] CNNURSE Observed: 09/23/2023 11:30 AM Status: COMPLETED Source: [facility] REPOSITORY Nurse Visit (CATHMN) CELIA CHOPRA ([id number]) 1935 F Date Time Provider Department 09/23/23 11:30 AM RESEARCH NURSE CARD INTERVENTION MNCATHMN During your visit today, we recorded the following information about you: Viri Mills RN 09/23/2023 5:28 PM Signed IRB 23-554 [facility] PI: Dr. Polanco Study explained/reviewed with [...] 10 mg by mouth twice daily. - multivit-min/iron/folic/lutein (CENTRUM SILVER WOMEN ORAL) Take by [...] [I36*08/06/2023 Visit Notes: >> Viri Mills RN Tugenoveva Sep 23, 2023 5:26 PM Status: Signed IRB 23-554 [facility] PI: Dr. Polanco Study explained/reviewed with patient. Study related screening process, follow-up requirements were discussed. Risks, benefits, alternatives, personnel, and costs of the study explained/reviewed. Patient provided informed consent for review. Study related questions were addressed. Will plan to meet with patient later this week . Rosa SAAVEDRA Encounter Status:Closed by VIRI MILLS on 09/23/23 ECG COMPLETE Observed: 09/23/2023 11:29 AM Status: F Source: [facility] REPOSITORY Ventricular Rate : 80 BPM QRS Duration : 94 ms Q-T Interval : 372 ms QTC Calculation(Bazett) : 429 ms Calculated R [place] : 6 degrees Calculated T [place] : 14 degrees ATRIAL FIBRILLATION INCOMPLETE RIGHT BUNDLE BRANCH BLOCK NONSPECIFIC ST ABNORMALITY ABNORMAL ECG Confirmed by MD HAMLET, PhD, JAYLA ([id number]) on 10/11/2023 8:24:29 AM NAME : CELIA CHOPRA PID : [id number] : 1935 Gender : Female Race : ORD : [id number] Procedure Date : Sep 23 2023 11:29:10 Edit Date : Oct 11 2023 08:24:31 Diagnosis: ATRIAL FIBRILLATION INCOMPLETE RIGHT BUNDLE BRANCH BLOCK NONSPECIFIC ST ABNORMALITY ABNORMAL ECG Confirmed by MD HAMLET, PhD, JAYLA ([id number]) on 10/11/2023 8:24:29 AM Test Reason : Location : 314 : J14 J1-4 Overread By : MD HAMLET, PhD,JAYLA Edited By : MD HAMLET, PhD,JAYLA Referred By : ED BARLOW Acquired by : CARINA ADORNO PROGRESS Observed: 09/23/2023 11:00 AM Status: COMPLETED Source: [facility] REPOSITORY HNO ID: [id number] Author: ED BARLOW APRN.SUPERVISOR [facility] Service: ? Author Type: Nurse Practitioner Type: Progress Notes Filed: 09/23/2023 11:25 Note Text: [facility] Department of Cardiovascular Medicine SECTION OF INTERVENTIONAL CARDIOLOGY OUTPATIENT VISIT DATE September 23, 2023 OUTPATIENT VISIT TYPE ESTABLISHED FOLLOW UP Primary Legal Instructor: Beverly Polanco MD Primary Care Physician: Haresh Duncan DO Chief Complaint: Patient here for cardiac [...] leg wound Finished doxycycline and started cephalexin 1.01.06 No fevers chills no pain or purulent [...] exam performed on 02/07/2022. No significant change. [facility]: 11/05/22 DIAGNOSTIC FINDINGS + + Coronary [...] ambulates without assistive devices Skin: warm, dry, 2cm x 1cm nonpainful healing skin tear left calf--no erythema, purulent drainage, swelling, or other concerns for injection Neck: No JVD Lungs: Breath sounds clear throughout, no crackles or wheezing Heart: Regular rhythm, PMI not displaced, S1/S2 normal, no S3/S4, + murmur, no edema noted Abdomen: Soft nontedner, +BSx4 Extremities: Distal pulses intact, MAEx4 Musculoskeletal: No deformities Neurologic/Psychiatric: Oriented to time, place AND person and no gross focal neurologic deficits HISTORY Celia Chopra is an 88 year old female with pmhx of: Severe tricuspid regurgitation 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 Patient appears euvolemic on assessment. Weight is down almost ten lbs. Took jardiance but 30 days but cost is now prohibitive Spironolactone is working per patient--reports BLE edema and ABD bloating has improved Last GFR 47 Still has some IGLESIAS and fatigue. NYHA II Dental clearance 08/28/23, will scan into epic Plan: Continue medications as prescribed. Will restart warfarin after the catheterization. CT today and labs today--has taken 2/3 prednisone. Will take last dose and benadryl [address] scan. Will check renal function today Echo pending Needs to supervisor picking crew other contrast dye Rx at [facility] Will discuss with team proceeding with [facility]/C tomorrow. From my assessment no signs of active injection. Finish antibiotics and follow up with wound care. We also discussed signs and symptoms of increased shortness of breath and peripheral edema should be reported to the local physician and Dr. Polanco's right away and be treated accordingly. I spent a total of 45 minutes on the date of the service which included preparing to see the patient, [id number] patient care, completing clinical documentation, obtaining and/or reviewing separately obtained history, performing a medically appropriate examination, counseling and educating the patient/family/caregiver, ordering medications, tests, or procedures, communicating with other HCPs (not separately reported), independently interpreting results (not separately reported), communicating results to the patient/family/caregiver, and care coordination (not separately reported). Ed Barlow APRN.SUPERVISOR [facility]UR[facility] CNOV Observed: 09/23/2023 11:00 AM Status: COMPLETED Source: [facility] REPOSITORY Office Visit (CATHMN) CELIA CHOPRA ([id number]) 1935 F Date Time Provider Department 09/23/23 11:00 AM [facility] CATHMN During your visit today, we recorded the following information about you: Temperature Pulse Blood pressure Weight 97.4 degrees 80/minute 142/77 67.6 kg Height 1.676 m Ed Barlow APRN.SUPERVISOR [facility]UR[facility] 09/23/2023 10:55 AM Signed Continue medications as prescribed. Will restart warfarin after the catheterization. CT today and labs today--has taken 2/3 prednisone. Will take last dose and benadryl [address]. Echo pending Needs to supervisor picking crew other contrast dye Rx at [facility] pharmacy Will discuss with team proceeding with [facility]/C tomorrow. From my assessment no signs of active injection. Finish antibiotics and follow up with wound care. We also discussed signs and symptoms of increased shortness of breath and peripheral edema should be reported to the local physician and Dr. Polanco's right away and be treated accordingly. Ed Barlow APRN.SUPERVISOR [employer] [facility] [facility]UR[facility] 09/23/2023 11:25 AM Signed [facility] Department of Cardiovascular Medicine SECTION OF INTERVENTIONAL CARDIOLOGY OUTPATIENT VISIT DATE September 23, 2023 OUTPATIENT VISIT TYPE ESTABLISHED FOLLOW UP Primary Legal Instructor: Beverly Polanco MD Primary Care Physician: Haresh Duncan DO Chief Complaint: Patient here for cardiac [...] exam performed on 02/07/2022. No significant change. [facility]: 11/05/22 DIAGNOSTIC FINDINGS + + Coronary [...] ambulates without assistive devices Skin: warm, dry, 2cm x 1cm nonpainful healing skin tear left calf--no erythema, purulent drainage, swelling, or other concerns for injection Neck: No JVD Lungs: Breath sounds clear throughout, no crackles or wheezing Heart: Regular rhythm, PMI not displaced, S1/S2 normal, no S3/S4, + murmur, no edema noted Abdomen: Soft nontedner, +BSx4 Extremities: Distal pulses intact, MAEx4 Musculoskeletal: No deformities Neurologic/Psychiatric: Oriented to time, place AND person and no gross focal neurologic deficits HISTORY Celia Chopra is an 88 year old female with pmhx of: Severe tricuspid regurgitation 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 Patient appears euvolemic on assessment. Weight is down almost ten lbs. Took jardiance but 30 days but cost is now prohibitive Spironolactone is working per patient--reports BLE edema and ABD bloating has improved Last GFR 47 Still has some IGLESIAS and fatigue. NYHA II Dental clearance 08/28/23, will scan into epic Plan: Continue medications as prescribed. Will restart warfarin after the catheterization. CT today and labs today--has taken 2/3 prednisone. Will take last dose and benadryl [address] scan. Will check renal function today Echo pending Needs to supervisor picking crew other contrast dye Rx at [facility] pharmacy Will discuss with team proceeding with [facility]/C tomorrow. From my assessment no signs of active injection. Finish antibiotics and follow up with wound care. We also discussed signs and symptoms of increased shortness of breath and peripheral edema should be reported to the local physician and Dr. Polanco's right away and be treated accordingly. I spent a total of 45 minutes on the date of the service which included preparing to see the patient, [id number] patient care, completing clinical documentation, obtaining and/or reviewing separately obtained history, performing a medically appropriate examination, counseling and educating the patient/family/caregiver, ordering medications, tests, or procedures, communicating with other HCPs (not separately reported), independently interpreting results (not separately reported), communicating results to the patient/family/caregiver, and care coordination (not separately reported). Ed Barlow APRN.SUPERVISOR [facility]UR[facility] Referring Provider: BEVERLY POLANCO [[id number]] Allergies As [...] RN - Fully Assessed Reason for Visit: Valvular Heart Disease [169] Primary Visit Diagnosis:Nonrheumatic tricuspid valve regurgitation [I36.1] Other Visit Diagnoses:Chronic diastolic heart failure (HCC) [I50.32] Encounter for preprocedural cardiovascular examination [Z01.810] Stage 3a chronic kidney disease (HCC) [N18.31] Wound of left lower extremity, subsequent encounter [H99.328O] Order(s):predniSONE (DELTASONE) 50 mgTake 1 tablet by mouth every 6 hours for 3 doses. For prevention of contrast allergy given 13 hrs, 7 hrs, and 1 hr prior to exam.Disp: 3 tabletRfl: 0 diphenhydrAMINE (BENADRYL) 50 mg capsuleTake 1 capsule by mouth as directed for 1 dose. one (1) hour prior to exam.Disp: 1 capsuleRfl: 0 CARDIOVASCULAR MEDICINE OP FOLLOW UP APPT ORDER [[id number]] Order #: [id number]: 1 FUTURE Prescriptions as of 09/23/2023 - predniSONE (DELTASONE) [...] 10 mg by mouth twice daily. - multivit-min/iron/folic/lutein (CENTRUM SILVER WOMEN ORAL) Take by [...] 08/06/2023 Nonrheumatic tricuspid valve regurgitation [I36*08/06/2023 Other instructions from your clinician: Continue medications as prescribed. Will restart warfarin after the catheterization. CT today and labs today--has taken 2/3 prednisone. Will take last dose and benadryl [address]. Echo pending Needs to supervisor picking crew other contrast dye Rx at [facility] pharmacy Will discuss with team proceeding with [facility] tomorrow. From my assessment no signs of active injection. Finish antibiotics and follow up with wound care. We also discussed signs and symptoms of increased shortness of breath and peripheral edema should be reported to the local physician and Dr. Polanco's right away and be treated accordingly. Prescriptions ordered this encounter Disp Refills Start End PREDNISONE 50 MG TABLET 3 ta* 0 09/23/2023 09/24/2023 Route: ORAL Sig: Take 1 tablet by mouth every 6 hours for 3 doses. For prevention of contrast allergy given 13 hrs, 7 hrs, and 1 hr prior to exam. DIPHENHYDRAMINE 50 MG CAPSULE 1 ca* 0 09/23/2023 Route: ORAL Sig: Take 1 capsule by mouth as directed for 1 dose. one (1) hour prior to exam. Medications Discontinued During This Encounter Prescriptions - empagliflozin (JARDIANCE) 10 mg tablet (Discontinued) Take 1 tablet by mouth daily with breakfast. Encounter Status:Closed by ED BARLOW on 09/23/23 ECHO Observed: 09/23/2023 9:23 AM Status: F Source: [facility] REPOSITORY Echocardiography Report: Tra nsthoracic Echo [facility] J35 Date of service: 09/23/2023 9:23:17 AM SONAR TECHNICIAN Ordering physician: ED BARLOW Indication: Tricuspid insufficiency Technologist: Seema Cruz [facility] Interpreting physician: Jacqueline Sanchez MD PATIENT: Name: MRS. CELIA CHOPRA : 1935 Age: 88 years Gender: F History of valvular heart disease, arrhythmia, coronary artery disease, hypertension, cardiomyopathy and chronic kidney disease. Previous cardiovascular interventions: Mitral valve replacement (2012) CABG (2012) TMVR (Ayla) (12/12/2021) Primary rhythm: atrial fib. Height: 167.60 cm BSA: 1.83 m? Weight: 72.12 kg BMI: 25.7 kg/m? Heart rate 79 bpm Blood pressure 133/76 mmHg Technically difficult exam due to body habitus. Color Doppler was utilized to interrogate the cardiac valves assessed and spectral Doppler was utilized to determine the flow velocities and pressure gradients reported in this exam. MEASUREMENTS: Value Indexed Normal Max aortic dimension 3.6 cm Ao < 3.8 Left atrial volume 67 ml (4ch A-L) 37 ml/m? Melonie <= 34 LV ID (diastole) 3.3 cm (2D) 1.78 cm/m? LV ID (systole) 2.3 cm (2D) 1.23 cm/m? IVS, leaflet tips 1.1 cm (2D) Posterior wall thickness 1.0 cm (2D) Left ventricular mass 107 g (2D) 58 g/m? LV stroke volume 44 ml (2D biplane) LVOT stroke volume 92 ml 50 ml/m? LV end diastolic volume 64 ml (2D biplane) 35.0 ml/m? 29<=EDVi<62 LV end systolic volume 20 ml (2D biplane) 11.2 ml/m? Ejection Fraction 68 % (2D biplane) EF [...] index is 0.61. AV area is 2.12 cm? (1.16 cm?/m?) by continuity, VTI. The LVOT stroke volume index is 50 ml/m?. PULMONIC VALVE There is mild (1+ - [...] * * Final * * * CC [employer] [facility] : [id number] [facility] Observed: 09/23/2023 12:00 AM Status: COMPLETED Source: [facility] REPOSITORY Telephone (CATLMN) CELIA CHOPRA ([id number]) 1935 F Date Time Provider Department 09/23/23 LIZETT MCGOWAN Abdias CATN During your visit today, we recorded the following information about you: Siomara Brady, QUENTIN 09/23/2023 1:57 PM Signed CARDIOVASCULAR LAB INSTRUCTIONS: Readiness to Learn: Cognitive Ability: Alert and oriented Motivation To Learn: Interested Family/Significant Other Support: Unable to assess - Family not present Instruction Provided To: Patient Patient Learns Best By: Verbal Instruction Factors Affecting Learning: None Physical Limitations Affecting Learning: None Learning Response: Procedure: Right and Left Heart Diagnostic Pre procedure education topics: Arrival time/NPO Status/Medications/Travel Instructions/Restrictions Patient/Family Response Evaluation: Verbalizes understanding Follow Up Plan and Medication: As directed by physician Instruction/Supplemental Material Given: Cardiac catheterization instructions, procedure information, hospital information, hotel information. Instructed By Celina Brady RN, RN. In Department of CARDIOLOGY. Allergies [...] 10 mg by mouth twice daily. - multivit-min/iron/folic/lutein (CENTRUM SILVER WOMEN ORAL) Take by [...] Status:Closed by SIOMARA BRADY RN on 09/23/23 JENNIFERN Observed: 09/18/2023 12:00 AM Status: COMPLETED Source: [facility] REPOSITORY Telephone (CATHMN) CELIA CHOPRA ([id number]) 1935 F Date Time Provider Department 09/18/23 PAVEL SYEDNY During your visit today, we recorded the [...] requesting a call back - CELL Ed Barlow, EVI.SUPERVISOR [facility] HEALTH NURSING 09/19/2023 3:32 PM Signed Returned called--explained if there is no ACTIVE infection and she is not on antibiotics it should be ok to procedure but if she is we need to postpone. Regardless I would like a return call to better assess the situation. Dr polanco's office number provided. Ed Barlow APRN.SUPERVISOR [facility] HEALTH NURSING Allergies As of Date: 09/18/2023 Noted Allergy [...] 10 mg by mouth twice daily. - multivit-min/iron/folic/lutein (CENTRUM SILVER WOMEN ORAL) Take by [...] Encounter Status:Closed by ANTONIA GABRIEL on 09/18/23 ANTONIO Observed: 08/14/2023 12:00 AM Status: COMPLETED Source: [facility] REPOSITORY Telephone (CATHMN) CELIA CHOPAR ([id number]) 1935 F Date Time Provider Department 08/14/23 BEVERLY POLANCO During your visit today, we recorded the following information about you: Dave Shama 08/14/2023 2:52 PM Signed I spoke w the patient Pt. TTVR Eval rescheduled to 09/23, 09/24 and 09/25. Mailing appt reminder to pt. Shama Allergies As of Date: 08/14/2023 Noted Allergy Reaction IODINE 09/18/2021 14 - Other: See Comments Comments: Per pt. was used at the dentist and she developed redness of face. This was quite awhile ago. PERCODAN (OXYCODONE-ASPIRIN) 09/18/2021 14 - Other: See Comments Comments: Per pt caused hallucinations. Date Reviewed: 08/06/2023 Reviewed by: Rubi Garnica, RN - Fully Assessed Reason for Visit: [...] 10 mg by mouth twice daily. - multivit-min/iron/folic/lutein (CENTRUM SILVER WOMEN ORAL) Take by [...] Encounter Status:Closed by SHAMA PRESCOTT on 08/14/23 COMP METAB 1999 PNL SERPL Collected: 12:52 PM Status: F Source: [facility] REPOSITORY Order Comment: Specimen Type : BLOOD SPECIMEN Ordering Facility: [facility] Address: [address] [place] [address] TYPE CODE TESTS RESULT OUT OF RANGE REFERENCE UNITS LAB 2885-2(LOINC) Prot SerPl-mCnc 8.0 6.3-8.0 g/dL LAB 1751-7(LOINC) Albumin SerPl-mCnc 4.6 3.9-4.9 g/dL LAB 12326-4(LOINC) Calcium SerPl-mCnc 10.1 8.5-10.2 mg/dL LAB 1975-2(LOINC) Bilirub SerPl-mCnc 0.8 0.2-1.3 mg/dL LAB 6768-6(LOINC) ALP SerPl-cCnc 114 34-123 U/L LAB 1920-8(LOINC) AST SerPl-cCnc 21 13-35 U/L LAB 1742-6(LOINC) ALT SerPl-cCnc 12 7-38 U/L LAB 2345-7(LOINC) Glucose SerPl-mCnc 115 High 74-99 mg/dL Result Comment: The [place] Diabetes Association (ADA) provides guidance for cutoff [...] Standards of Medical Care in Diabetes 2016, [place] Diabetes Association. Diabetes Care. 2016.39(Suppl 1). LAB 3094-0(LOINC) BUN SerPl-mCnc 28 High 7-21 mg/ dL LAB 2160-0(LOINC) Creat SerPl-mCnc 1.13 High 0.58-0.96 mg/dL LAB 2951-2(LOINC) Sodium SerPl-sCnc 142 136-144 mmol/L LAB 2823-3(LOINC) Potassium SerPl-sCnc 4.0 3.7-5.1 mmol/L LAB 2075-0(LOINC) Chloride SerPl-sCnc 101 97-105 mmol/L LAB 2027-9(LOINC) CO2 SerPl-sCnc 31 High 22-30 mmo l/L LAB 10603-5(LOINC) Anion Gap SerPl-sCnc 10 9-18 mmol/L LAB 27902-7(LOINC) Creatinine + eGFR Pnl SerPlBld 47 Low >=60 mL/min/1 .73m??? Result Comment: Estimated Gl omerular Filtration Rate (eGFR) is calculated using the 2020 CKD-EPI creatinine equation. This equation utilizes serum creatinine, sex, and age as parameters. The creatinine assay has traceable calibration to isotope dilution-mass spectrometry. Refer to KDIGO guidelines for clinical interpretation. In patients with unstable renal function, e.g. those with acute kidney injury, the eGFR may not accurately reflect actual GFR. Performed By: #### 56624-5 # ### [facility] CLIA [id number] [address] [place] [address] CNOV Observed: 08/13/2023 12:00 PM Status: COMPLETED Source: [facility] REPOSITORY Office Visit (CATHMN) CELIA CHOPRA ([id number]) 1935 F Date Time Provider Department 08/13/23 12:00 PM [facility] CATHMN During your visit today, we recorded the following information about you: Ed Barlow, LOG SNAKER.SUPERVISOR [facility] NURSING 08/13/2023 3:56 PM Signed [facility] Department of Cardiovascular Medicine SECTION OF INTERVENTIONAL CARDIOLOGY OUTPATIENT VISIT DATE August 13, 2023 OUTPATIENT VISIT TYPE ESTABLISHED FOLLOW UP Primary Legal Instructor: Beverly Polanco MD Primary Care Physician: Haresh Duncan DO Chief Complaint: Patient here for cardiac [...] for other reasons. B. Working or doing round up ring hand Severely limited Limited quite a bit Moderately [...] exam performed on 02/07/2022. No significant change. 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 I discussed the [...] team for device trials offered at the [facility]. Notification of meeting recommendation/screening is by phone and can take up to 2 weeks. If the team recommends a transcatheter tricuspid procedure/Trial, they should expect to return to the [facility] for 1-3 visits prior to the procedure for consent to the trial or any updated necessary testing. Once the patient has consents, the trial sponsor reviews the imaging, they will determine if the patient is a candidate based on their anatomy 14 days prior to the proposed procedure date. Procedures dates are dependent on sponsor and physician availability [...] the hospital 2-3 days before the procedure to ensure they are medically optimized with intravenous diuretics. [...] or pull heavy objects for the first 10 to 14 days after the procedure. Do not do any strenuous activities for 5 days after the procedure. This includes most sports, such as jogging, golfing, playing tennis and bowling. You may climb stairs if needed, but walk up and down the stairs more slowly than usual. Gradually increase your activity level during the week after the procedure, when you should be back to your normal routine. Do not have sexual [...] help you get stronger so you can return to your routine activities, teach you about lifestyle changes, and nutrition by education and exercise. Completing your cardiac rehab program can greatly help your recovery and greatly reduce your risk of future heart problems. For [facility] Cardiac Rehab call [phone] to schedule after you are home from your procedure. If you do not receive your referral, please call your blue line operator's office for the order. I spent a total of 45 minutes on the date of the service which included preparing to see the patient, quef-vh-loft patient care, completing clinical documentation, performing a medically appropriate examination, counseling and educating the patient/family/caregiver, ordering medications, tests, or procedures, communicating results to the patient/family/caregiver, and care coordination (not separately reported). DOUG Murphy Rachel K, APRN.CNP 08/13/2023 12:06 PM Signed Agree with Dr. Ramos's med recommendations. Give 30 days of GDMT (guideline directed medication therapy), just start MRA on 08/08. Labs today to check renal function. Will call if we plan to change medication based on labs. Plan for return for testing in the beginning of Sep. I will coordinate with schedulers to arrange. Provide the TRISCEND ROMÁN Consent for review. I have spoken with the patient regarding the multidisciplinary evaluation process for transcatheter tricuspid therapies for tricuspid regurgitation. I discussed the [...] team for device trials offered at the [facility]. Notification of meeting recommendation/screening is by phone and can take up to 2 weeks. If the team recommends a transcatheter tricuspid procedure/Trial, they should expect to return to the [facility] for 1-3 visits prior to the procedure for consent to the trial or any updated necessary testing. Once the patient has consents, the trial sponsor reviews the imaging, they will determine if the patient is a candidate based on their anatomy 14 days prior to the proposed procedure date. Procedures dates are dependent on sponsor and physician availability [...] the hospital 2-3 days before the procedure to ensure they are medically optimized with intravenous diuretics. [...] or pull heavy objects for the first 10 to 14 days after the procedure. Do not do any strenuous activities for 5 days after the procedure. This includes most sports, such as jogging, golfing, playing tennis and bowling. You may climb stairs if needed, but walk up and down the stairs more slowly than usual. Gradually increase your activity level during the week after the procedure, when you should be back to your normal routine. Do not have sexual [...] help you get stronger so you can return to your routine activities, teach you about lifestyle changes, and nutrition by education and exercise. Completing your cardiac rehab program can greatly help your recovery and greatly reduce your risk of future heart problems. For [facility] Cardiac Rehab call [phone] to schedule after you are home from your procedure. If you do not receive your referral, please call your blue line operator's office for the order. Referring Provider: BEVERLY POLANCO [[id number]] Allergies As of Date: 08/13/2023 Noted Allergy Reaction IODINE 09/18/2021 14 - Other: See Comments Comments: Per pt. was used at the dentist and she developed redness of face. This was quite awhile ago. PERCODAN (OXYCODONE-ASPIRIN) 09/18/2021 14 - Other: See Comments Comments: Per pt caused hallucinations. 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 - multivit-min/iron/folic/lutein (CENTRUM SILVER WOMEN ORAL) Take by mouth. 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 Ramos's med recommendations. Give 30 days of GDMT (guideline directed medication therapy), just start MRA on 08/08. Labs today to check renal function. Will call if we plan to change medication based on labs. Plan for return for testing in the beginning of Sep. I will coordinate with schedulers to arrange. Provide the TRISCEND ROMÁN Consent for review. I have spoken with the patient regarding the multidisciplinary evaluation process for transcatheter tricuspid therapies for tricuspid regurgitation. I discussed the [...] team for device trials offered at the [facility]. Notification of meeting recommendation/screening is by phone and can take up to 2 weeks. If the team recommends a transcatheter tricuspid procedure/Trial, they should expect to return to the [facility] for 1-3 visits prior to the procedure for consent to the trial or any updated necessary testing. Once the patient has consents, the trial sponsor reviews the imaging, they will determine if the patient is a candidate based on their anatomy 14 days prior to the proposed procedure date. Procedures dates are dependent on sponsor and physician availability [...] the hospital 2-3 days before the procedure to ensure they are medically optimized with intravenous diuretics. [...] or pull heavy objects for the first 10 to 14 days after the procedure. Do not do any strenuous activities for 5 days after the procedure. This includes most sports, such as jogging, golfing, playing tennis and bowling. You may climb stairs if needed, but walk up and down the stairs more slowly than usual. Gradually increase your activity level during the week after the procedure, when you should be back to your normal routine. Do not have sexual [...] help you get stronger so you can return to your routine activities, teach you about lifestyle changes, and nutrition by education and exercise. Completing your cardiac rehab program can greatly help your recovery and greatly reduce your risk of future heart problems. For [facility] Cardiac Rehab call [phone] to schedule after you are home from your procedure. If you do not receive your referral, please call your blue line operator's office for the order. Encounter Status:Closed by ED BARLOW on 08/13/23 PROGRESS Observed: 08/13/2023 12:00 PM Status: COMPLETED Source: [facility] REPOSITORY HNO ID: [id number] Author: Ed Barlow APRN.SUPERVISOR PUBLIC HEALTH NURSING Service: ? Author Type: Nurse Practitioner Type: Progress Notes Filed: 08/13/2023 3:56 PM Note Text: [facility] Department of Cardiovascular Medicine SECTION OF INTERVENTIONAL CARDIOLOGY OUTPATIENT VISIT DATE August 13, 2023 OUTPATIENT VISIT TYPE ESTABLISHED FOLLOW UP Primary Legal Instructor: Beverly Polanco MD Primary Care Physician: Haresh Duncan DO Chief Complaint: Patient here for cardiac [...] for other reasons. B. Working or doing round up ring hand Severely limited Limited quite a bit Moderately [...] exam performed on 02/07/2022. No significant change. [facility]: 11/05/22 DIAGNOSTIC FINDINGS + + Coronary Anatomy: [...] No deformities Neurologic/Psychiatric: Oriented to time, place AND person and no gross focal neurologic deficits HISTORY Celia Chopra is an 88 year old female with pmhx of: Severe tricuspid regurgitation TMVR valve in valve w/ [place] 12/12/21 Rheumatic fever, Prior MVR (CE #27)/MAZE 2011 single vessel CABG (left radial to the diagonal branch of the LAD) in 2012 at [place] Chronic AF (warfarin) CKD3 ASSESSMENT (I36.1) Nonrheumatic [...] patient regarding the multidisciplinary evaluation process for transcatheter tricuspid therapies for tricuspid regurgitation. I discussed the [...] team for device trials offered at the [facility]. Notification of meeting recommendation/screening is by phone and can take up to 2 weeks. If the team recommends a transcatheter tricuspid procedure/Trial, they should expect to return to the [facility] for 1-3 visits prior to the procedure for consent to the trial or any updated necessary testing. Once the patient has consents, the trial sponsor reviews the imaging, they will determine if the patient is a candidate based on their anatomy 14 days prior to the proposed procedure date. Procedures dates are dependent on sponsor and physician availability [...] the hospital 2-3 days before the procedure to ensure they are medically optimized with intravenous diuretics. [...] or pull heavy objects for the first 10 to 14 days after the procedure. Do not do any strenuous activities for 5 days after the procedure. This includes most sports, such as jogging, golfing, playing tennis and bowling. You may climb stairs if needed, but walk up and down the stairs more slowly than usual. Gradually increase your activity level during the week after the procedure, when you should be back to your normal routine. Do not have sexual [...] help you get stronger so you can return to your routine activities, teach you about lifestyle changes, and nutrition by education and exercise. Completing your cardiac rehab program can greatly help your recovery and greatly reduce your risk of future heart problems. For [facility] Cardiac Rehab call [phone] to schedule after you are home from your procedure. If you do not receive your referral, please call your blue line operator's office for the order. I spent a total of 45 minutes on the date of the service which included preparing to see the patient, [id number] patient care, completing clinical documentation, performing a medically appropriate examination, counseling and educating the patient/family/caregiver, ordering medications, tests, or procedures, communicating results to the patient/family/caregiver, and care coordination (not separately reported). Ed Barlow APRN.SUPERVISOR PUBLIC HEALTH NURSING ECHO Observed: 08/13/2023 10:23 AM Status: F Source: [facility] REPOSITORY Echocardiography Report: Tra nsthoracic Echo [facility] J35 Date of service: 08/13/2023 10:23:24 AM SONAR TECHNICIAN Ordering physician: BEVERLY POLANCO Indication: Triluminate Protocol Technologist: Tess Padilla Interpreting physician: Ginger Richards MD PATIENT: Name: MRS. CELIA CHOPRA : 1935 Age: 88 years Gender: F History of valvular heart disease and arrhythmia. Previous cardiovascular interventions: Mitral valve replacement (2012) CABG (2012) TMVR (Ayla) (12/12/2021) Primary rhythm: atrial fib. Height: 167.60 cm BSA: 1.83 m? Weight: 72.12 kg BMI: 25.7 kg/m? Heart rate 76 bpm Blood pressure 158/81 mmHg Color Doppler was utilized to interrogate the cardiac valves assessed and spectral Doppler was utilized to determine the flow velocities and pressure gradients reported in this exam. MEASUREMENTS: Value Indexed Normal Max aortic dimension 3.6 cm Ao < 3.8 Left atrial volume 97 ml (4ch A-L) 53 ml/m? Melonie <= 34 LV ID (diastole) 3.6 cm (2D) 1.97 cm/m? LV ID (systole) 2.4 cm (2D) 1.32 cm/m? IVS, leaflet tips 1.1 cm (2D) Posterior wall thickness 1.1 cm (2D) Left ventricular mass 126 g (2D) 69 g/m? LV stroke volume 27 ml (2D 4-ch.) LVOT stroke volume 59 ml 33 ml/m? LV end diastolic volume 49 ml (2D 4-ch.) 26.9 ml/m? 29<=EDVi<62 LV end systolic volume 22 ml (2D 4-ch.) 12.3 ml/m? Ejection Fraction 54 % (2D 4-ch.) EF [...] There is no thickening. MERVIN(PA) is 18 mm?. AORTIC VALVE There is mild aortic valve [...] index is 0.41. AV area is 1.28 cm? (0.70 cm?/m?) by continuity, VTI. The LVOT stroke volume index is 33 ml/m?. PULMONIC VALVE There is mild (1+ - [...] systolic function is normal. EF = 54 ? 5% (2D 4-ch.) - The right [...] is 8 mmHg based on IVC assessment. - Exam was compared with the prior CC echocardiographic exam performed on 04/04/2023. Similar findings. * * * Final * * * [employer] [facility] : [id number] PROGRESS Observed: 08/13/2023 9:30 AM Status: COMPLETED Source: [facility] REPOSITORY O ID: [id number] Author: Justine Castillo RT(R) Service: Radiology Author Type: Technologist [...] PERIPHERAL IV DATA: Not applicable SIGNED BY: Justine Castillo RT(R) August 13, 2023 9:16 AM XR CHEST 2V FRONTAL/LAT Observed: 2022 9:09 AM Status: F Source: [facility] REPOSITORY * * *Final Report* * * DATE OF EXAM: Aug 13 2023 9:09AM JIX [id number] - XR CHEST 2V FRONTAL/LAT / [...] interval change since the exam dated 12/11/2021. Printed Circuit Board Pcb Designer: NICK Transcribe Date/Time: Aug 13 2023 3:31P Dictated by : YUNIOR KRUSE MD This examination was interpreted and the report reviewed and electronically signed by: YUNIOR KRSUE MD on Aug 13 2023 3:35PM EST [id number] ECG COMPLETE Observed: 08/13/2023 9:04 AM Status: F Source: [facility] REPOSITORY Ventricular Rate : 69 BPM Atrial Rate : 69 BPM QRS Duration : 94 ms Q-T Interval : 402 ms QTC Calculation(Bazett) : 430 ms Calculated R [place] : 21 degrees Calculated T [place] : 40 degrees ATRIAL FIBRILLATION RSR' PATTERN IN V1 SUGGESTS INCOMPLETE RIGHT BUNDLE BRANCH BLOCK NONSPECIFIC ST ABNORMALITY ABNORMAL ECG Confirmed by JOSE NICOLE MD ([id number]) on 08/29/2023 2:37:33 PM NAME : CELIA CHOPRA PID : [id number] : 1935 Gender : Female Race : ORD : [id number] Procedure Date : Aug 13 2023 09:04:02 Edit Date : Aug 29 2023 14:37:36 Diagnosis: ATRIAL FIBRILLATION RSR' PATTERN IN V1 SUGGESTS INCOMPLETE RIGHT BUNDLE BRANCH BLOCK NONSPECIFIC ST ABNORMALITY ABNORMAL ECG Confirmed by JOSE NICOLE MD ([id number]) on 08/29/2023 2:37:33 PM Test Reason : Location : 314 : J14 J1-4 Overread By : JOSE NICOLE MD Edited By : JOSE NICOLE MD Referred By : BEVERLY POLANCO Acquired by : LARRY THORNTON CK TOTAL AND CK-MB Collected: 3:22 PM Status: F Source: [facility] REPOSITORY Order Comment: Specimen Type : BLOOD SPECIMEN Ordering Facility: [facility] Address: [address] [place] [address] TYPE CODE TESTS RESULT OUT OF RANGE REFERENCE UNITS LAB 2157-6(LOINC) CK SerPl-cCnc 57 42-196 U/L LAB 21280-8(LOINC) CK MB SerPl-mCnc 1.8 <4.4 ng/mL LAB 71740-9(LOINC) CK MB CFr SerPl Result Comment: CK MB % not reported with CK <100 U/L. Performed By: #### 2324-2, C KCKMB, 60665-5, 18220-0 #### [facility] CLIA [id number] [address] [place], [place] [address] [place] [address] [place] COMP METAB 2000 PNL SERPL Collected: 3:22 PM Status: F Source: [facility] REPOSITORY Order Comment: Specimen Type : BLOOD SPECIMEN Ordering Facility: [facility] Address: [place] [address] TYPE CODE TESTS RESULT OUT OF RANGE REFERENCE UNITS LAB 2885-2(LOINC) Prot SerPl-mCnc 7.9 6.3-8.0 g/dL LAB 1751-7(LOINC) Albumin SerPl-mCnc 4.6 3.9-4.9 g/dL LAB 63760-4(LOINC) Calcium SerPl-mCnc 10.0 8.5-10.2 mg/dL LAB 1975-2(LOINC) Bilirub SerPl-mCnc 1.0 0.2-1.3 mg/dL LAB 6768-6(LOINC) ALP SerPl-cCnc 115 34-123 U/L LAB 1920-8(LOINC) AST SerPl-cCnc 25 13-35 U/L LAB 1742-6(LOINC) ALT SerPl-cCnc 13 7-38 U/L LAB 2345-7(LOINC) Glucose SerPl-mCnc 110 High 74-99 mg/dL Result Comment: The [place] Diabetes Association (ADA) provides guidance for cutoff [...] Standards of Medical Care in Diabetes 2016, [place] Diabetes [employer]. Diabetes Care. 2016.39(Suppl 1). LAB 3094-0(LOINC) BUN SerPl-mCnc 25 High 7-21 mg/ dL LAB 2160-0(LOINC) Creat SerPl-mCnc 0.95 0.58-0.96 mg/dL LAB 2951-2(LOINC) Sodium SerPl-sCnc 141 136-144 mmol/L LAB 2823-3(LOINC) Potassium SerPl-sCnc 3.6 Low 3.7-5.1 mmol/L LAB 5-0(LOINC) Chloride SerPl-sCnc 100 97-105 mmol/L LAB 2027-(LOINC) CO2 SerPl-sCnc 28 22-30 mmo l/L LAB 84175-5(LOINC) Anion Gap SerPl-sCnc 13 9-18 mmol/L LAB 26668-5(LOINC) Creatinine + eGFR Pnl SerPlBld 58 Low >=60 mL/min/1 .73m??? Result Comment: Estimated Gl omerular Filtration Rate (eGFR) is calculated using the 2020 CKD-EPI creatinine equation. This equation utilizes serum creatinine, sex, and age as parameters. The creatinine assay has traceable calibration to isotope dilution-mass spectrometry. Refer to KDIGO guidelines for clinical interpretation. In patients with unstable renal function, e.g. those with acute kidney injury, the eGFR may not accurately reflect actual GFR. Performed By: #### 2324-2, C COSMOB, 35802-7, 63741-0 #### [facility] CLIA [id number] [facility] [place] [address] [place] NT-PROBNP SERPL-MCNC Collected: 023 3:22 PM Status: F Source: [facility] REPOSITORY Order Comment: Specimen Type : BLOOD SPECIMEN Ordering Facility: [facility] Address: [address] [place] [address] TYPE CODE TESTS RESULT OUT OF RANGE REFERENCE UNITS LAB 16675-0([facility]) NT-proBNP SerPl-mCnc 1289 High <450 pg/mL Performed By: #### 2324-2, C KCKMB, 90984-1, 64136-4 #### [facility] CLIA [id number] [address] [place] [id number] [place] GGT SERPL-CCNC Collected: 3 3:22 PM Status: F Source: [facility] REPOSITORY Order Comment: Specimen Type : BLOOD SPECIMEN Ordering Facility: [facility] Address: [address] [place] [address] TYPE CODE TESTS RESULT OUT OF RANGE REFERENCE UNITS LAB 2324-2(LOINC) GGT SerPl-cCnc 25 6-46 U/L Performed By: #### 2324-2, C KCKMB, 57650-6, 68867-2 #### [facility] CLIA [id number] [address] [place] [address] [place] PT PNL PPP Collected: 3:22 PM Status: F Source: [facility] REPOSITORY Order Comment: Specimen Type : BLOOD SPECIMEN Ordering Facility: [facility] Address: [address] [place] [address] TYPE CODE TESTS RESULT OUT OF RANGE REFERENCE UNITS LAB 5902-2(LOINC) Prothrombin time 27.1 High 9.7-13.0 sec LAB 6301-6(LOINC) INR PPP 2.8 High 0.9-1.3 Result Comment: Vitamin K An tagonist (VKA) Therapeutic Range: INR 2 to 3 (Target INR of 2.5) Note: For patients treated with VKA drugs, such as warfarin, the [place] [employer] 2012 Guideline recommends [...] Chest 2012, 141:7S-47S Concetta RA, et al. JACC 2017, 70: 252-289 Performed By: #### 10416-8 # ### [facility] CLIA [id number] [address] [place] [address] [place] CBC W AUTO DIFF BLD Collected: 08/06/2023 3:[address] atus: F Source: [facility] REPOSITORY Order Comment: Specimen Type : BLOOD SPECIMEN Ordering Facility: [facility] Address: [place] [address] TYPE CODE TESTS RESULT OUT OF RANGE REFERENCE UNITS LAB 6690-2([facility]) WBC # Bld Auto 7.59 3.70-11.00 k/uL LAB 789-8([facility]) RBC # Bld Auto 4.21 3.90-5.20 m/ uL LAB 718-7([facility]) Hgb Bld-mCnc 13.0 11.5-15.5 g/dL LAB 4544-3([facility]) Hct VFr Bld Auto 40.2 36.0-46.0 % LAB 787-2([facility]) MCV RBC Auto 95.5 80.0-100.0 fL LAB 785-6([facility]) MCH RBC Qn Auto 30.9 26.0-34.0 p g LAB 786-4([facility]) MCHC RBC Auto-mCnc 32.3 30.5-36.0 g/dL LAB 87111-5([facility]) RDW RBC-Rto 13.0 11.5-15.0 % LAB 777-3([facility]) Platelet # Bld Auto 200 150-400 k/uL LAB 41374-7([facility]) PMV Bld Auto 11.2 9.0-12.7 fL LAB 770-8([facility]) Neutrophils/leuk NFr Bld Auto 65.7 % LAB 751-8([facility]) Neutrophils # Bld Auto 4.99 1.45-7.50 k/uL LAB 736-9([facility]) Lymphocytes/leuk NFr Bld Auto 19.8 % LAB 731-0([facility]) Lymphocytes # Bld Auto 1.50 1.00-4.00 k/uL LAB 5905-5([facility]) Monocytes/leuk NFr Bld Auto 9.9 % LAB 742-7([facility]) Monocytes # Bld Auto 0.75 <0.87 k/uL LAB 713-8([facility]) Eosinophil/leuk NFr Bld Auto 3.6 % LAB 711-2([facility]) Eosinophil # Bld Auto 0.27 <0.46 k/uL LAB 706-2([facility]) Basophils/leuk NFr Bld Auto 0.9 % LAB 704-7(LOINC) Basophils # Bld Auto 0.07 <0.11 k/uL LAB 26569-5([facility]) Imm Granulocytes/sandie k NFr Bld Auto 0.1 % LAB 04492-9([facility]) Imm Granulocytes # Bld Auto <0.03 <0.10 k/uL LAB 46997-5([facility]) nRBC/100 WBC Bld-Rto 0.0 /100 WBC LAB 771-6([facility]) nRBC # Bld Auto <0.01 <0.01 k/u L LAB 64982-3([facility]) Differential method Bld Auto Performed By: #### 09304-9 # ### [facility] CLIA [id number] [address] [place], [place] [id number] [place] HIGH SENSITIVITY TROPONIN T Collected: 08/06/2023 3:22 PM Status: F Source: [facility] REPOSITORY Order Comment: Specimen Type : BLOOD SPECIMEN Ordering Facility: [facility] Address: [address] [place] [address] TYPE CODE TESTS RESULT OUT OF RANGE REFERENCE UNITS LAB 66166-7([facility]) Troponin T SerPl HS-mCnc 22 High <12 ng/L Result Comment: When assessi ng risk for acute coronary syndromes: In patients undergoing blood draw greater than or equal to 2 hours from symptom onset, with history of very low to moderate risk and non-ischemic ECG, an initial hs- Troponin T less than 12 ng/L AND a 1 hour delta hs-Troponin T less than 3 ng/L should be considered very low risk for 30 day MACE. Performed By: #### HSTNT, 30 84-1 #### [facility] CLIA [id number] [address] [address] [place] URATE SERPL-MCNC Collected: 3:22 PM Status: F Source: [facility] REPOSITORY Order Comment: Specimen Type : BLOOD SPECIMEN Ordering Facility: [facility] Address: [address] [place] [address] TYPE CODE TESTS RESULT OUT OF RANGE REFERENCE UNITS LAB 3084-1(LOINC) Urate SerPl-mCnc 7.1 High 2.5-6.6 mg/dL Performed By: #### HSTNT, 30 84-1 #### [facility] CLIA [id number] [address] [place], [place] [address] [place] [id number] [place] PROGRESS Observed: 08/06/2023 1:15 PM Status: COMPLETED Source: [facility] REPOSITORY HNO ID: [id number] Author: Esthela Ramos MD Service: ? Author Type: Physician Type: Progress Notes Filed: 08/06/2023 4:02 PM Note Text: Heart and [facility] SECTION OF HEART FAILURE and CARDIAC TRANSPLANT MEDICINE OUTPATIENT VISIT DATE August 06, 2023 OUTPATIENT VISIT TYPE Consultation PRIMARY CARE PHYSICIAN: Haresh Duncan ([facility]) [address] [place] [address] CHIEF COMPLAINT: Tricuspid regurgitation NURSING INTAKE (Patient?s concerns and/or recent hospitalizations/ER visits): Celia Chopra is a 88 year old female from [place], [place] referred by Ed Barlow APRN.CNP for cardiac evaluation of TR. 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 Lives in [place]. Does collect fluid in belly and legs. No hospitalizations or ED visits for volume overload. Has gained 3 lbs in the last week. Primary Legal Instructor is Dr. Polanco. Has not been on [...] kg (159 lb) SpO2 98% BMI 25.66 kg/m? General: Well appearing, in no acute distress. [...] * * * Final * * * [facility]: 11/05/22 DIAGNOSTIC FINDINGS + + Coronary [...] recommended. IMPRESSION: 88 year old female from [place], [place] referred by Ed Barlow APRN.JENNIFER for cardiac evaluation of TR. #Severe tricuspid regurgitation #TMVR valve in valve w/ Lampoon 12/12/21 #Acute on chronic diastolic HF #Rheumatic fever, Prior MVR (CE #27)/MAZE 2011 #single vessel CABG (left radial to the diagonal branch of the LAD) in 2012 at [place] #Chronic AF (warfarin) #CKD3a NYHA Functional Class: [...] the management and care of this patient. We discussed natural history of disease, current treatment options, and future potential treatment options. We discussed diet, exercise, other non-medical management as above. Esthela Ramos MD [facility] Section Of Heart Failure and Cardiac Transplant Medicine Heart [facility] Desk J3-[address] [place] [address] CNOV Observed: 08/06/2023 1:15 PM Status: COMPLETED Source: [facility] REPOSITORY Office Visit (CARD CHF LILLIAN) CELIA CHOPRA ([id number]) 1935 F Date Time Provider Department 08/06/23 1:15 PM Esthela RAMOS CARD CHF LILLIAN During your visit today, we recorded the following information about you: Pulse Blood pressure Weight Height 77/minute 158/81 72.1 kg 1.676 m Esthela Ramos MD 08/06/2023 4:02 PM Signed Heart and Vascular [facility] SECTION OF HEART FAILURE and CARDIAC TRANSPLANT MEDICINE OUTPATIENT VISIT DATE August 06, 2023 OUTPATIENT VISIT TYPE Consultation PRIMARY CARE PHYSICIAN: Haresh Duncan ([facility]) [address] [place] [address] CHIEF COMPLAINT: Tricuspid regurgitation NURSING INTAKE (Patient?s concerns and/or recent hospitalizations/ER visits): Celia Chopra is a 88 year old female from [place], [place] referred by Ed Barlow APRN.CNP for cardiac evaluation of TR. 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 Lives in [place]. Does collect fluid in belly and legs. No hospitalizations or ED visits for volume overload. Has gained 3 lbs in the last week. Primary Legal Instructor is Dr. Polanco. Has not been on [...] kg (159 lb) SpO2 98% BMI 25.66 kg/m? General: Well appearing, in no acute distress. [...] * * * Final * * * [facility]: 11/05/22 DIAGNOSTIC FINDINGS + + Coronary [...] recommended. IMPRESSION: 88 year old female from [place] referred by Ed Barlow APRN.CNP for cardiac evaluation of TR. #Severe tricuspid regurgitation #TMVR valve in valve w/ Lampoon 12/12/21 #Acute on chronic diastolic HF #Rheumatic fever, Prior MVR (CE #27)/MAZE 2011 #single vessel CABG (left radial to the diagonal branch of the LAD) in 2013 at [place] #Chronic AF (warfarin) #CKD3a NYHA Functional Class: [...] the management and care of this patient. We discussed natural history of disease, current treatment options, and future potential treatment options. We discussed diet, exercise, other non-medical management as above. Esthela Ramos MD [facility] Section Of Heart Failure and Cardiac Transplant Medicine Heart [facility] Desk [place] [address] Esthela Ramos MD 08/06/2023 3:00 PM Signed -start spironolactone 12.5 mg daily -PM dose of bumex at 1pm on 08/07 -continue work-up with Dr. Polanco -labs when you can Allergies As of Date: 08/06/2023 Noted Allergy Reaction IODINE 09/18/2021 14 - Other: See Comments Comments: Per pt. was used at the dentist and she developed redness of face. This was quite awhile ago. PERCODAN (OXYCODONE-ASPIRIN) 09/18/2021 14 - Other: See Comments Comments: Per pt caused hallucinations. Date Reviewed: 08/06/2023 Reviewed by: Rubi Garnica RN - Fully Assessed Reason for Visit: Consult [502] Primary Visit Diagnosis:Permanent atrial fibrillation (HCC) [I48.21] Other Visit Diagnoses:Stage 3a chronic kidney disease (HCC) [N18.31] Non-ischemic cardiomyopathy (HCC) [I42.8] Primary hypertension [I10] Nonrheumatic tricuspid valve regurgitation [I36.1] Acute on chronic diastolic CHF (congestive heart failure) (HCC) [I50.33] Order(s):COMP METABOLIC PANEL [SQCMP] Order #: [id number] FUTURE NT PRO BNP [SQNTBNP] Order #: [id number] FUTURE CARDIOVASCULAR MEDICINE OP FOLLOW UP APPT ORDER [02685828] Order #: [id number]: 1 FUTURE BASIC METABOLIC PNL [SQBMP] Order #: [id number] FUTURE spironolactone (ALDACTONE) 25 mg tabletTake 0.5 tablets by mouth once daily.Disp: 45 tabletRfl: 1 Prescriptions as of 08/06/2023 - Amoxicillin 500 mg tablet Take 500 [...] 10 mg by mouth twice daily. - multivit-min/iron/folic/lutein (CENTRUM SILVER WOMEN ORAL) Take by mouth. 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 Polanco -labs when you can Prescriptions ordered this encounter Disp Refills Start End SPIRONOLACTONE 25 MG TABLET 45 t* 1 08/06/2023 02/02/2024 Route: ORAL Sig: Take 0.5 tablets by mouth once daily. Encounter Status:Closed by GINGER RAMOS on 08/06/23 ANTONIO Observed: 06/06/2023 12:00 AM Status: COMPLETED Source: [facility] REPOSITORY Telephone (CATHMN) CELIA CHOPRA ([id number]) 1935 F Date Time Provider Department 06/06/23 ED BARLOW During your visit today, we [...] 10 mg by mouth twice daily. - multivit-min/iron/folic/lutein (CENTRUM SILVER WOMEN ORAL) Take by [...] Encounter Status:Closed by RICHAR GARCIA on 06/06/23 L Observed: 05/27/2023 9:53 AM Status: F Source: [facility] REPOSITORY ----- ------- Specimen: [id number] Received: 05/28/23-903 Status: CHELSY Cheney Num: [id number] Spec Type: Surgical Subm Dr: Rasta Romero MD Tissues: A Skin-Other than Cyst, tag, debridement or plastic repair (LT THIGH) Procedures: MART 1/JOHN A, , Gross/Micro L4 ----- ------- Age/ Patient Sex Location Account Attending Physician ----- ------- Celia Chopra 88/F NOEMI [id number] Rasta Romero MD ----- ------- SPEC NUM: [id number] RECD: 05/28/23 STATUS: CHELSY HICKEYJohnson NUM: [id number] MECCA: 05/27/23 [facility] DR: Rasta Romero MD ENTERED: 05/28/23 [facility] DR: JEAN MARIE TYPE: Surgical DEPT: S ORDERED: MART /JOHN A, , Gross/Micro L4 ORDERED: MART JOHN A, , Gross/Micro L4 Pathological Diagnosis Skin, left leg, [...] specimen is sectioned transversely from 12-6 o'clock. Huc sections are submitted in 19 cassettes as follows: A1 - 12:00 radial tip A2 - Bisected transverse section A3-A4 - Bisected transverse section A5-A6 - Bisected transverse section ----- ------- Specimen: [id number] Received: 05/28/23 Status: CHELSY Cheney Num: [id number] Spec Type: Surgical Subm Dr: Rasta Romero MD Tissues: A Skin-Other than Cyst, tag, debridement or plastic repair (LT THIGH) Procedures: MART /JOHN A, , Gross/Micro L4 ----- ------- Patient: Celia Chopra [id number] (Continued) ----- ------- Specimen: [id number] Received: 05/28/23 (Continued) Gross Description (Continued) Signed (signature on file) Betito Schulte MD 06/03/23 1623 ----- ------- Specimen: [id number] Received: 05/28/23 Status: CHELSY Nancy Num: [id number] Spec Type: Surgical Subm Dr: Rasta Romero MD Tissues: A Skin-Other than Cyst, tag, debridement or plastic repair (LT THIGH) Procedures: MART , Gross/Micro L4 ----- ------- Patient: Celia Chopra [id number] (Continued) ----- ------- Specimen: [id number] Received: 05/28/23 (Continued) Gross Description (Continued) A7-A8 - Bisected transverse section A9-A10 - Bisected transverse section A11-A12 - Bisected transverse section A13-A14 - Bisected transverse section A15-A16 - Bisected transverse section A17-A18 - Bisected transverse section A19 - 6:00 radial tip Microscopic Description 19 H E slides reviewed. The microscopic examination confirms the diagnosis. CPT Codes 24900 ----- ------- ----- ------- Specimen: [id number] Received: 05/28/23 Status: CHELSY Cheney Num: [id number] Spec Type: Surgical Subm Dr: Rasta Romero MD Tissues: A Skin-Other than Cyst, tag, debridement or plastic repair (LT THIGH) Procedures: MART /JOHN A, , Gross/Micro L4 ----- ------- Patient: Celia Chopra [id number] (Continued) ----- ------- Signed (signature on file) Betito Schulte MD 06/03/23 1623 PROGRESS Observed: 05/02/2023 4:34 PM Status: COMPLETED Source: [facility] REPOSITORY HNO ID: [id number] Author: Ed Barlow APRN.SUPERVISOR [facility] NURSING Service: ? Author Type: Nurse Practitioner Type: Progress Notes Filed: 05/21/2023 4:26 PM Note Text: STRUCTURAL REVIEW FORM Pt. Name: Celia Chopra Records in [facility] have been reviewed. Severe TR. Request has been sent to the counseling psychologist who will arrange an appointment schedule. A [...] branch of the LAD) in 2012 at [place] Chronic AF (warfarin) CKD3 GFR: 47 Contrast [...] exam performed on 02/07/2022. No significant change. [facility]: 11/05/22 DIAGNOSTIC FINDINGS + + Coronary [...] left and right cardiac catheterization with an Body Component Engineer ONLY (Dr. Mendoza, Dr. Dejesus, Dr. Syed, Dr. Polanco, Dr. Real, Dr. Mcgowan, Dr. Fabian, Dr. Miles, Dr. Schumacher, Dr. Colindres, Dr. Urias, and Dr. [...] appointment packet Thank You Ed Barlow APRN.JENNIFER RODRIGUEZN Observed: 04/17/2023 12:00 AM Status: COMPLETED Source: [facility] REPOSITORY Telephone (CATHMN) CELIA CHOPRA ([id number]) 1935 F Date Time Provider Department 04/17/23 [...] to: verified cell phone below Patient's phone: [phone] (home) [phone] (cell) Was an appointment scheduled: No Closing statement: Results or non-symptom based questions: Thank you for calling [facility], your call will be [...] hallucinations. Date Reviewed: 04/04/2023 Reviewed by: Yesenia Horne RN - Fully Assessed Reason for Visit: [...] 10 mg by mouth twice daily. - multivit-min/iron/folic/lutein (CENTRUM SILVER WOMEN ORAL) Take by [...] Encounter Status:Closed by ANYI CEE on 05/03/23 ALLERGIES DATE TYPE / CODE NAME / CODE REACTION SEVERITY SOURCE 03/03/2024 Drug Allergy/041181 002(SNOMED CT) iodine/D68335349 2(RXNORM) Unknown Reaction Unknown [facility] 03/03/2024 Drug Allergy/395664 002(SNOMED CT) oxycodone/L29362 1558(RXNORM) Hallucinating Unknown [facility] 03/03/2024 Drug Allergy/617087 002(SNOMED CT) aspirin/F1542354 87(RXNORM) Hallucinating [facility] 03/03/2024 Drug Allergy/177855 002(SNOMED CT) acetaminophen/F0 83557438(RXNORM) Hallucinating Unknown [facility] 09/18/2021 DRUG INGREDI/149173 003(SNOMED CT) IODINE OTHER: SEE C [facility] 09/18/2021 DRUG/188922032 (SNOMED CT) OXYCODONE-ASPIRI N OTHER: SEE C [facility] ENCOUNTERS ADMIT/DISCHARGE ACCOUNT NUMBER ADMITTING ENCOUNTER CLASS LOCATION SOURCE 04/05/2024 [id number] Melissa Alanis [facility] 04/01/2024/04/01/20 24 [id number] Ambulatory Building:NOM S SWS POD [facility] EPIC 02/18/2024/02/18/20 24 [id number] Ambulatory Building:NOM S SWS POD [facility] EPIC 01/22/2024/01/22/20 24 [id number] Ambulatory Building:NOM S SWSDERM [facility] EPIC 12/25/2023/12/25/19 24 [id number] Ambulatory Building:NOM S SWS POD [facility] EPIC 12/18/2023/12/18/19 24 [id number] Ambulatory [facility] Hospital[facility]il ding:SABRINA SARGENT [facility] 12/18/2023/12/18/19 24 [id number] [facility]AM[facility] 12/18/2023/12/18/19 24 [id number] BEVERLY POLANCO Ambulatory [facility] HospitalBuil ding:J180Vgy m: [id number]: [id number] [facility] 12/18/2023/12/18/19 24 [id number] Ambulatory [facility] HospitalBuil ding:[facility] 11/18/2023/11/18/19 24 [id number] Jean Carlos Jimenez [facility] 11/04/2023/11/04/19 24 [id number] Ambulatory Building:NOM S SWSDERM [facility] EPIC 10/30/2023 [id number] Diana Loven [facility] 10/23/2023/10/23/19 24 [id number] Ambulatory Building:NOM S SWSDERM [facility] EPIC 10/14/2023/10/14/19 24 [id number] [facility] 10/13/2023/10/13/19 24 [id number] Haresh Duncan [facility] 10/02/2023/10/02/19 24 [id number] Ambulatory Building:NOM S SWS POD [facility] EPIC 09/25/2023/09/25/19 24 [id number] Ambulatory [facility] HospitalBuil ding:CAFL [facility] 09/25/2023/09/25/19 24 [id number] Ambulatory [facility] 09/24/2023/09/24/19 24 [id number] Ambulatory [facility] 09/24/2023/09/24/19 24 [id number] LIZETT MCGOWAN Ambulatory [facility] HospitalBuil ding:B317Jsu m: [id number]: [id number] [facility] 09/23/2023/09/23/19 24 [id number] Ambulatory [facility] HospitalBuil ding:RCTJ [facility] 09/23/2023/09/23/19 24 [id number] Ambulatory [facility] HospitalBuil ding:EKGF [facility] 09/23/2023/09/23/19 24 [id number] Ambulatory [facility] HospitalBuil ding:LB16 [facility] 09/23/2023/09/23/19 24 [id number] Ambulatory [facility] HospitalBuil ding:CATH [facility] 09/23/2023/09/23/19 24 [id number] Ambulatory [facility] HospitalBuil ding:CATH [facility] 09/23/2023/09/23/19 24 [id number] Ambulatory [facility] HospitalBuil ding:[place] [facility] 08/26/2023/08/26/20 23 [id number] Ambulatory Building:REED ROSS [facility] 08/13/2023/08/13/20 23 [id number] Ambulatory [facility] HospitalBuil ding:CATH [facility] 08/13/2023/08/13/20 23 [id number] Ambulatory [facility] HospitalBuil ding:LB16 [facility] 08/13/2023/08/13/20 23 [id number] Ambulatory [facility] HospitalBuil ding:CATH [facility] 08/13/2023/08/13/20 23 [id number] Ambulatory [facility] HospitalBuil ding:PERYolanda [facility] 08/13/2023/08/13/20 23 [id number] Ambulatory [facility] HospitalBuil ding:XRJ1 [facility] 08/13/2023/08/13/20 23 [id number] Ambulatory [facility] HospitalBuil ding:EKGF [facility] 08/06/2023/08/06/20 23 [id number] Ambulatory [facility] HospitalBuil ding:LB16 [facility] 08/06/2023/08/06/20 23 [id number] Ambulatory [facility] HospitalBuil ding:CAHF [facility] 05/27/2023/05/27/20 23 [id number] Rasta Romero [facility] 05/20/2023/05/20/20 23 [id number] Emil Salinas [facility] PAYERS ENCOUNTER GUARANTOR PAYER SUBSCRIBER SOURCE 04/05/2024 [id number] [place] [address]Spj: () [facility] y Number: [id number] Date:2023-09-29 Celia BahOB: 9418-12-31TOXLyi [id number] [place] [address]Zkr: () [facility] 04/05/2024 Secondary Insurance:[facility] ClaimsPolicy Number: [id number] Date:2023-09-29 Celia Molina MilkieDOB: 8358-78-75WMFKrp [id number] [place] [address]Jwx: () [facility] 04/05/2024 Tertiary Insuran ce:Self PayPolicy Number: Effective Date:2023-09-29 [facility]/2024 CELIA Molina MILKIEDOB: [id number] [address] [address]Epn: () Primary Insurance:MEDICAREPolic y Number: [id number] Date:7262-55-84Opbr Name:Medicare CELIA Molina MILKIEDOB: [id number] [address] [address] [facility] EPIC 04/01/2024 Secondary Insurance:AARPPolicy Number: [id number] Date:2022-09-15 CELIA Molina MILKIEDOB: [id number] [address] [address] [facility] EPIC 02/18/2024 CELIA Molina MILKIEDOB: [id number] [address] [address]Nwe: () Primary Insurance:MEDICAREPolic y Number: [id number] Date:6609-89-67Hiza Name:Medicare CELIA Molina MILKIEDOB: [id number] [address] [address] [facility] EPIC 02/18/2024 Secondary Insurance:AARPPolicy Number: [id number] Date:2022-09-15 CELIA Molina MILKIEDOB: [id number] [facility] [address] [address] [facility] 01/22/2024 CELIA Molina MILKIEDOB: [id number] [facility] [address] [address]Nhh: (HP) Primary Insurance:MEDICAREPolic y Number: [id number] Date:1011-34-06Dnfk Name:Medicare HELEN L MILKIEDOB: [id number] [facility], [place] [address] [facility] 01/22/2024 Secondary Insurance:AARPPolicy Number: [id number] Date:2022-09-15 CELIA Molina MILKIEDOB: [id number] [facility] [address] [facility] 12/25/2023 CELIA Molina MILKIEDOB: [id number] [facility] [address]Yix: (HP) Primary Insurance:MEDICAREPolic y Number: [id number] Date:7674-59-92Qtyw Name:Medicare HELEN L MILKIEDOB: [id number] [facility] [address] [facility] 12/25/2023 Secondary Insurance:AARPPolicy Number: [id number] Date:2022-09-15 CELIA Molina MILKIEDOB: [id number] [facility] [address] [address] [facility] 12/18/2023 Primary Insurance:MEDICARE A AND BPolicy Number: [id number] Date:2187-22-92Qqvd Name:Matias Molina MILKIEDOB: [id number] [facility] [address] [facility] 12/18/2023 Secondary Insura nce:[facility] AARP SUPPLEMENTPolicy Number: [id number] Date:1663-29-61Sift Name:Ama Molina MILKIEDOB: [id number] [address] [address] [facility] 12/18/2023 Primary Insurance:MEDICARE A AND BPolicy Number: [id number] Date:0749-44-56Svhr Name:Matias Molina MILKIEDOB: [id number] [address] [address] [facility] 12/18/2023 Secondary Insura nce:[facility] AARP SUPPLEMENTPolicy Number: [id number] Date:6700-18-11Hgbu Name:Ama Molina MILKIEDOB: [id number] [place] [id number] [facility] 12/18/2023 Primary Insurance:MEDICARE A AND BPolicy Number: [id number] Date:3382-30-44Tlwm Name:Matias Molina MILKIEDOB: [id number] [address] [address] [facility] 12/18/2023 Secondary Insura nce:[facility] AARP SUPPLEMENTPolicy Number: [id number] Date:6025-72-67Trxm Name:Ama Molina MILKIEDOB: [id number] [address] [address] [facility] 11/18/2023 Celia Molina [id number] [place] [address]Qss: (HP) Primary Insurance:MedicarePolic y Number: [id number] Date:2023-10-22 Celia Molina MilkieDOB: [birth year]-45UMBLvj [id number] [place] [address]Edd: () [facility] 11/18/2023 Secondary Insurance:[facility] Health ClaimsPolicy Number: [id number] Date:2023-10-22 Celia Molina MilkieDOB: 8999-76-12XFTKly [id number] [place] [address]Auq: () [facility] 11/18/2023 Tertiary Insuran ce:Self PayPolicy Number: Effective Date:2023-10-22 NOT GIVENUNK [facility] 11/04/2023 CELIA Molina MILKIEDOB: [id number] [address] [address]Skh: () Primary Insurance:MEDICAREPolic y Number: [id number] Date:6875-86-38Fqyr Name:Medicare CELIA OCHOAIEDOB: [id number] [address] [address] [facility] EPIC 11/04/2023 Secondary Insurance:AARPPolicy Number: [id number] Date:2022-09-15 CELIA Molina MILKIEDOB: [id number] [address] [address] [facility] EPIC 10/30/2023 [id number] [place] [address]Jcd: () Primary Insurance:MedicarePolic y Number: [id number] Date:2023-10-13 Celia Molina MilkieDOB: 8087-00-72GKNKee [id number] [place] [address]Izj: () [facility] 10/30/2023 Secondary Insurance:[facility] Health ClaimsPolicy Number: [id number] Date:2023-10-13 Celia Molina MilkieDOB: 4640-93-21ZISHdo [id number] [place] [address]Eee: () [facility] 10/30/2023 Tertiary Insuran ce:Self PayPolicy Number: Effective Date:2023-10-13 [facility] CELIA OCHOAIEDOB: [id number] [address] [address]Ofk: () Primary Insurance:MEDICAREPolic y Number: [id number] Date:2393-14-81Izxw Name:Medicare CELIA OCHOAIEDOB: [id number] [address] [address] [facility] EPIC 10/23/2023 Secondary Insurance:AARPPolicy Number: [id number] Date:2022-09-15 CELIA OCHOAIEDOB: [id number] [address] [place] [address] [facility] EPIC 10/14/2023 [id number] [place] [address]Jzw: () Primary Insurance:MedicarePolic y Number: [id number] Date:2023-10-14 Celia OchoaieDOB: 5125-66-66OXSBvm [id number] [place] [address]Gox: () [facility] 10/14/2023 Secondary Insurance:[facility] Health ClaimsPolicy Number: [id number] Date:2023-10-14 Celia OchoaieDOB: [birth year]-49-27PAPYcs [id number] [place] [address]Sxg: () [facility] 10/14/2023 Tertiary Insuran ce:Self PayPolicy Number: Effective Date:2023-10-14 NOT GIVENUNK [facility] 10/13/2023 [id number] [place] [address]Zav: () Primary Insurance:MedicarePolic y Number: [id number] Date:2022-09-12 Celia Molina MilkieDOB: 8610-17-92IYPTny [id number] [place] [address]Otp: () [facility] 10/13/2023 Secondary Insurance:[facility] ClaimsPolicy Number: [id number] Date:2022-09-12 Celia Molina MilkieDOB: [birth year]04AZEZci [id number] [place] [address]Frp: () [facility] 10/13/2023 Tertiary Insuran ce:Self PayPolicy Number: Effective Date:2022-09-12 NOT GIVENUNK [facility] 10/02/2023 CELIA OCHOAIEDOB: [id number] [address] [address]Mfc: () Primary Insurance:MEDICAREPolic y Number: [id number] Date:3785-23-20Qgso Name:Medicare CELIA Molina MILKIEDOB: [id number] [address] [address] [facility] EPIC 10/02/2023 Secondary Insurance:AARPPolicy Number: [id number] Date:2022-09-15 CELIA Molina MILKIEDOB: [id number] [address] [address] [facility] EPIC 09/25/2023 Primary Insurance:MEDICARE A AND BPolicy Number: [id number] Date:0398-17-94Equq Name:Matias Molina MILKIEDOB: [id number] [address] [address] [facility] 09/25/2023 Secondary Insura nce:[facility] AARP SUPPLEMENTPolicy Number: [id number] Date:2085-29-30Jfzj Name:Ama Molina MILKIEDOB: [id number] [address] [facility] 09/25/2023 Primary Insurance:MEDICARE A AND BPolicy Number: [id number] Date:8027-86-46Fbua Name:Matias Molina MILKIEDOB: [id number] [address] [address] [facility] 09/25/2023 Secondary Insura nce:[facility] AARP SUPPLEMENTPolicy Number: [id number] Date:3848-47-96Edst Name:Ama Molina MILKIEDOB: [id number] [address] [address] [facility] 09/24/2023 Primary Insurance:MEDICARE A AND BPolicy Number: [id number] Date:8185-60-27Fqko Name:Matias Molina MILKIEDOB: [id number] [address] [address] [facility] 09/24/2023 Secondary Insura nce:[facility] AARP SUPPLEMENTPolicy Number: [id number] Date:9946-99-22Ijgh Name:Ama Molina MILKIEDOB: [id number] [address] [address] [facility] 09/24/2023 Primary Insurance:MEDICARE A AND BPolicy Number: [id number] Date:8239-07-38Scqk Name:Matias Molina MILKIEDOB: [id number] [address] [address] [facility] 09/24/2023 Secondary Insura nce:[facility] AARP SUPPLEMENTPolicy Number: [id number] Date:4137-33-39Ktyu Name:Ama Molina MILKIEDOB: [id number] [address] [address] [facility] 09/23/2023 Primary Insurance:MEDICARE A AND BPolicy Number: [id number] Date:2836-88-55Iybv Name:Matias Molina MILKIEDOB: [id number] [address] [address] [facility] 09/23/2023 Secondary Insura nce:[facility] AARP SUPPLEMENTPolicy Number: [id number] Date:8558-02-07Zool Name:Ama Molina MILKIEDOB: [id number] [address] [address] [facility] 09/23/2023 Primary Insurance:MEDICARE A AND BPolicy Number: [id number] Date:1539-24-30Ngkf Name:Matias Molina MILKIEDOB: [id number] [address] [address] [facility] 09/23/2023 Secondary Insura nce:[facility] AARP SUPPLEMENTPolicy Number: [id number] Date:4120-83-95Icsl Name:Ama Molina MILKIEDOB: [id number] [address] [address] [facility] 09/23/2023 Primary Insurance:MEDICARE A AND BPolicy Number: [id number] Date:7295-41-28Oojm Name:Matias Molina MILKIEDOB: [id number] [address] [address] [facility] 09/23/2023 Secondary Insura nce:[facility] AARP SUPPLEMENTPolicy Number: [id number] Date:3377-99-52Obyg Name:Ama Molina MILKIEDOB: [id number] [place] [id number] [facility] 09/23/2023 Primary Insurance:MEDICARE A AND BPolicy Number: [id number] Date:5252-87-90Hvja Name:Matias Molina MILKIEDOB: [id number] [place] [id number] [facility] 09/23/2023 Secondary Insura nce:[facility] AARP SUPPLEMENTPolicy Number: [id number] Date:5635-99-26Rdcy Name:Ama Molina MILKIEDOB: [id number] [place] [id number] [facility] 09/23/2023 Primary Insurance:MEDICARE A AND BPolicy Number: [id number] Date:0751-88-99Ohny Name:Matias Molina MILKIEDOB: [id number] [place] [id number] [facility] 09/23/2023 Secondary Insura nce:[facility] AARP SUPPLEMENTPolicy Number: [id number] Date:1097-77-40Oart Name:Ama Molina MILKIEDOB: 2053-81-57RRY7869 [place] [id number] [facility] 09/23/2023 Primary Insurance:MEDICARE A AND BPolicy Number: [id number] Date:9214-69-39Ghtu Name:Matias Molina MILKIEDOB: 3936-33-94GYR4115 [place] [id number] [facility] 09/23/2023 Secondary Insura nce:[facility] AARP SUPPLEMENTPolicy Number: [id number] Date:5404-40-67Utva Name:Ama Molina MILKIEDOB: [id number] [address] [address] [facility] 08/26/2023 CELIA Molina MILKIEDOB: [id number] [address] [address]Rbf: () Primary Insurance:MEDICAREPolic y Number: [id number] Date:2120-70-98Xsns Name:Medicare HELEN L MILKIEDOB: [id number] [address] [address] [facility] 08/26/2023 Secondary Insurance:AARPPolicy Number: [id number] Date:2022-09-15 CELIA Molina MILKIEDOB: [id number] [address] [address] [facility] 08/13/2023 Primary Insurance:MEDICARE A AND BPolicy Number: [id number] Date:7576-72-94Ktls Name:Matias Molina MILKIEDOB: 8685-93-98VLC9004 [place] [id number] [facility] 08/13/2023 Secondary Insura nce:[facility] AAR SUPPLEMENTPolicy Number: [id number] Date:3208-43-57Dgxk Name:Ama Molina MILKIEDOB: [id number] [place] [id number] [facility] 08/13/2023 Primary Insurance:MEDICARE A AND BPolicy Number: [id number] Date:4443-86-55Tbux Name:Matias Molina MILKIEDOB: [id number] [place] [id number] [facility] 08/13/2023 Secondary Insura nce:[facility] AARP SUPPLEMENTPolicy Number: [id number] Date:4402-08-31Voks Name:Ama Molina MILKIEDOB: [id number] [address] [address] [facility] 08/13/2023 Primary Insurance:MEDICARE A AND BPolicy Number: [id number] Date:4847-05-63Cwjx Name:Matias Molina MILKIEDOB: [id number] [address] [address] [facility] 08/13/2023 Secondary Insura nce:[facility] AARP SUPPLEMENTPolicy Number: [id number] Date:5770-83-64Quks Name:Ama Molina MILKIEDOB: [id number] [address] [address] [facility] 08/13/2023 Primary Insurance:MEDICARE A AND BPolicy Number: [id number] Date:1886-42-96Rvqx Name:Matias Molina MILKIEDOB: [id number] [address] [address] [facility] 08/13/2023 Secondary Insura nce:[facility] AARP SUPPLEMENTPolicy Number: [id number] Date:9972-13-28Fumb Name:Ama Molina MILKIEDOB: [id number] [address] [address] [facility] 08/13/2023 Primary Insurance:MEDICARE A AND BPolicy Number: [id number] Date:2446-20-43Fuvc Name:Matias Molina MILKIEDOB: 9938-02-07TZQ6974 [address] [address] [facility] 08/13/2023 Secondary Insura nce:[facility] AARP SUPPLEMENTPolicy Number: [id number] Date:4230-43-45Cvsj Name:Ama Molina MILKIEDOB: [id number] [address] [address] [facility] 08/13/2023 Primary Insurance:MEDICARE A AND BPolicy Number: [id number] Date:0949-11-41Maqp Name:Matias Molina MILKIEDOB: [id number] [address] [address] [facility] 08/13/2023 Secondary Insura nce:[facility] AARP SUPPLEMENTPolicy Number: [id number] Date:2527-55-16Pcfs Name:Ama Molina MILKIEDOB: [id number] [address] [facility] 08/06/2023 Primary Insurance:MEDICARE A AND BPolicy Number: [id number] Date:2947-11-31Bggo Name:Matias Molina MILKIEDOB: [id number] [address] [address] [facility] 08/06/2023 Secondary Insura nce:[facility] AARP SUPPLEMENTPolicy Number: [id number] Date:9218-80-67Lxok Name:Ama Molina MILKIEDOB: [id number] [address] [facility] 08/06/2023 Primary Insurance:MEDICARE A AND BPolicy Number: [id number] Date:8275-67-23Qkgd Name:Matias Molina MILKIEDOB: [id number] [address] [address] [facility] 08/06/2023 Secondary Insura nce:[facility] AARP SUPPLEMENTPolicy Number: [id number] Date:9423-77-58Nyth Name:Ama Molina MILKIEDOB: [id number] [address] [address] [facility] 05/27/20[id number] [place], [place] [address]Tel: () Primary Insurance:MedicarePolic y Number: [id number] Date:2023-05-27 Celia Molina MilkieDOB: 0740-10-73KXRQmx [id number] [place] [address]Pyf: () [facility] 05/27/2023 Secondary Insurance:[facility] ClaimsPolicy Number: [id number] Date:2023-05-27 Celia Molina MilkieDOB: 6990-84-89FHNLjb [id number] [place] [address]Vpe: () [facility] 05/27/2023 Tertiary Insuran ce:Self PayPolicy Number: Effective Date:2023-05-27 [facility] [id number] [place] [address]Xrv: () Primary Insurance:MedicarePolic y Number: [id number] Date:2022-05-16 Celia Molina MilkieDOB: 2377-28-52ILPNhd [id number] [place] [address]Nwq: () [facility] 05/20/2023 Secondary Insurance:[facility] ClaimsPolicy Number: [id number] Date:2022-05-16 Celia Molina MilkieDOB: 9722-74-37YHLMhq [id number] [place] [address]Vxf: () [facility] 05/20/2023 Tertiary Insuran ce:Self PayPolicy Number: Effective Date:2022-05-16 [facility]
== END 2024-04-15 14:56 | disposition home or self-care (01) ==
LOC: VC 13:00
PROVIDERS: PCP Radiology Diagnostic Radiology; Visit Provider Radiology Diagnostic Radiology
DX: I83.813 Varicose veins of bilateral lower extremities with pain (principal)
CPT/HCPCS: 36466

== ENCOUNTER 2024-04-23 12:55 | Outpatient (OUT) | payer MEDICARE, SELFPAY ==
--- NOTE | 2024-04-23 09:54 | VEINCLINIC_ITS ---
Vital Signs 3 04/23/24 13:01 Height 5 ft 6 in Weight 63 kg BMI 22.4 BP 112/65 BP Location Left Brachial BP Position Sitting BP Cuff Size Adult BP Source Automatic Cuff Respiration 16 Pulse 76 Pulse Oximetry (%) 94 L Varicose Veins Patient in today for follow up ultrasound of right lower extremity following treatment of Varithena/microfoam completed on 04/15/24. Romeo Muñoz MD personally performed the services described in this documentation, as scribed by Dalila Peterson RDMS in my presence and it is both accurate and complete. Dalila Muñoz RDMS, am scribing for, and in the presence of, Dr. Jeanine Pabon and in the presence of the patient. knee: bilateral (Varicose veins noted throughout bilateral legs), calf: bilateral, ankle: bilateral and croft: bilateral aching, burning and dull 4 6 months Worsened in recent months: Yes standing, sitting and walking analgesics, bed rest, elevating extremities, compression stockings and exercise Reports erythema, edema and other (non healing stasis ulceration (left mid calf)) History of lower extremity trauma: No Superficial thrombophlebitis: No Family history of varicose veins: no Has patient had previous lower extremity venous surgery: No Patient has previously received the following treatment(s) for lower extremity varicose veins: Reports none Does patient have a history of : yes Does patient intend to have future pregnancies: no Has patient had lower extremity venous scan with relux testing: Yes Support hose used: Yes (x5 years ) Problems walking or doing physical activity: Yes How does it affect you: non healing wound to mid posteriorm calf Do you walk much: Yes Do you stand much: Yes Medication compliance: good Review of Systems 2 ROS0 Narrative Romeo Muñoz MD personally performed the services described in this documentation, as scribed by Dalila Peterson RDMS in my presence and it is both accurate and complete. Dalila Muñoz RDMS, am scribing for, and in the presence of, Dr. Jeanine Pabon and in the presence of the patient. Status of ROS 10 or more systems reviewed and unremark able except as noted in history and below Cardiovascular Reports: edema, swelling of feet/ankles and leg pain with exertion Musculoskeletal Reports: extremity pain, extremity swelling, limited range of motion, joint swelling, muscle cramps and muscle weakness Integumentary/Breast Reports: itching, redness, skin pain, skin tenderness, skin swelling, new lesion, non-healing lesion and changes in skin color Neurological Reports: numbness in extremities and weakness in extremities [facility] Medical History (Updated 04/14/24 @ 14:23 by Cecilio Mendoza) Phlebitis of superficial vein of right lower extremity ?I80.01 - Phlebitis and thrombophlebitis of superficial vessels of right lower extremity (ICD-10) Phlebitis of superficial vein of left lower extremity ?I80.02 - Phlebitis and thrombophlebitis of superficial vessels of left lower extremity (ICD-10) Varicose veins of bilateral lower extremities with pain ?I83.813 - Varicose veins of bilateral lower extremities with pain (ICD-10) Chapped lips ?K13.0 - Diseases of lips (ICD-10) Cystitis with hematuria ?N30.91 - Cystitis, unspecified with hematuria (ICD-10) Chronic venous hypertension with ulcer ?I87.319 - Chronic venous hypertension (idiopathic) with ulcer of unspecified lower extremity (ICD-10) ?L97.909 - Non-pressure chronic ulcer of unspecified part of unspecified lower leg with unspecified severity (ICD-10) 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, stage III ?I13.0 - Hypertensive heart and chronic kidney disease with heart failure and stage 1 through stage 4 chronic kidney disease, or unspecified chronic kidney disease (ICD-10) ?N18.30 - Chronic kidney disease, stage 3 unspecified (ICD-10) Chronic atrial fibrillation ?I48.20 - Chronic atrial fibrillation, unspecified (ICD-10) ASHD (arteriosclerotic heart disease) ?I25.10 - Atherosclerotic heart disease of [place] coronary artery without angina pectoris (ICD-10) Hypokalemia ?E87.6 - Hypokalemia (ICD-10) Chest wall pain following surgery ?R07.89 - Other chest pain (ICD-10) ?G89.18 - Other acute postprocedural pain (ICD-10) Pulmonary nodule, left ?R91.1 - Solitary pulmonary nodule (ICD-10) At low risk for fall ?Z91.81 - History of falling (ICD-10) Menopause ?Z78.0 - Asymptomatic menopausal state (ICD-10) Vitamin D deficiency ?E55.9 - Vitamin D deficiency, unspecified (ICD-10) Hyperlipidemia ?E78.5 - Hyperlipidemia, unspecified (ICD-10) LISA (obstructive sleep apnea) ?G47.33 - Obstructive sleep apnea (adult) (pediatric) (ICD-10) Depression screening ?Z13.31 - Encounter for screening for depression (ICD-10) Acute on chronic diastolic (congestive) heart failure ?I50.33 - Acute on chronic diastolic (congestive) heart failure (ICD-10) Primary insomnia ?F51.01 - Primary insomnia (ICD-10) Pain due to varicose veins of both lower extremities ?I83.813 - Varicose veins of bilateral lower extremities with pain (ICD-10) IGLESIAS (dyspnea on exertion) ?R06.09 - Other forms of dyspnea (ICD-10) Gastroesophageal reflux disease with esophagitis ?K21.00 - Gastro-esophageal reflux disease with esophagitis, without bleeding (ICD-10) Stenosis of prosthetic mitral valve ?T82.857A - Stenosis of other cardiac prosthetic devices, implants and grafts, initial encounter (ICD-10) Elevated TSH ?R79.89 - Other specified abnormal findings of blood chemistry (ICD-10) TRAVIS (generalized anxiety disorder) ?F41.1 - Generalized anxiety disorder (ICD-10) Chronic bronchitis ?J42 - Unspecified chronic bronchitis (ICD-10) Decreased diffusion capacity ?R94.2 - Abnormal results of pulmonary function studies (ICD-10) Mitral valve stenosis ?I05.0 - Rheumatic mitral stenosis (ICD-10) Pulmonary hypertension ?I27.20 - Pulmonary hypertension, unspecified (ICD-10) Fatigue ?R53.83 - Other fatigue (ICD-10) Nicotine dependence ?F17.200 - Nicotine dependence, unspecified, uncomplicated (ICD-10) Pacemaker ?Z95.0 - Presence of cardiac pacemaker (ICD-10) COPD (chronic obstructive pulmonary disease) ?J44.9 - Chronic obstructive pulmonary disease, unspecified (ICD-10) Urinary incontinence due to urethral sphincter incompetence ?N36.42 - Intrinsic sphincter deficiency (ISD) (ICD-10) ?R32 - Unspecified urinary incontinence (ICD-10) Bilateral tinnitus ?H93.13 - Tinnitus, bilateral (ICD-10) Nonrheumatic mitral valve regurgitation ?I34.0 - Nonrheumatic mitral (valve) insufficiency (ICD-10) Hypertension ?I10 - Essential (primary) hypertension (ICD-10) Surgical History (Updated 03/17/24 @ 13:49 by Aubrie Dang) S/P TAVR (transcatheter aortic valve replacement) ?Z95.2 - Presence of prosthetic heart valve (ICD-10) Hx of appendectomy ?Z90.49 - Acquired absence of other specified parts of digestive tract (ICD- 10) History of bladder suspension procedure ?Z98.890 - Other specified postprocedural states (ICD-10) ?Z87.448 - Personal history of other diseases of urinary system (ICD-10) History of colonoscopy ?Z98.890 - Other specified postprocedural states (ICD-10) History of dilation of urethra ?Z98.890 - Other specified postprocedural states (ICD-10) History of cystoscopy ?Z98.890 - Other specified postprocedural states (ICD-10) History of maze procedure ?Z98.890 - Other specified postprocedural states (ICD-10) Hx of CABG ?Z95.1 - Presence of aortocoronary bypass graft (ICD-10) History of mitral valve replacement ?Z95.2 - Presence of prosthetic heart valve (ICD-10) Family History (Updated 03/17/24 @ 13:51 by Aubrie Dang) Mother Family history of CHF (congestive heart failure) Pain due to varicose veins of both lower extremities Sister Pain due to varicose veins of both lower extremities Social History (Updated 03/17/24 @ 13:52 by Aubrie Dang) Within the past year, how often did you have a drink containing alcohol: 2-4 times a month Smoking status: Former smoker Non-prescribed substance use: denies use Meds Home Medications and Allergies Home Medications ?Medication ?Instructions ?Recorded ?Confirmed ?Type atorvastatin 20 mg tablet 20 mg PO DAILY 03/17/24 03/17/24 History bumetanide 2 mg tablet 1 mg PO DAILY 03/17/24 03/17/24 History clobetasol 0.05 % topical cream 1 applic topical DAILY 03/17/24 03/17/24 History famotidine 20 mg tablet 20 mg PO DAILY 03/17/24 03/17/24 History metoprolol tartrate 50 mg tablet 25 mg PO DAILY 03/17/24 03/17/24 History potassium chloride 10 mEq 10 meq PO DAILY 03/17/24 03/17/24 History tablet,extended release (Klor-Con) sulfasalazine 500 mg tablet 0.5 g PO DAILY 03/17/24 03/17/24 History warfarin 2 mg tablet (Jantoven) 1 mg PO QWEEK 03/17/24 03/17/24 History zolpidem 10 mg tablet (Ambien) 03/17/24 History Allergies Allergy/AdvReac Type Severity Reaction Status Date / Time iodine Allergy Unknown Verified 02/13/24 14:48 Exam Narrative Exam Narrative: Patient continues to have small slow healing wound medial distal right lower leg. Romeo Muñoz MD personally performed the services described in this documentation, as scribed by Dalila Peterson RDMS in my presence and it is both accurate and complete. Dalila Muñoz RDMS, am scribing for, and in the presence of, Dr. Jeanine Pabon and in the presence of the patient. Constitutional Documenting provider has reviewed patient's vital signs: yes Common normals: oriented x3 Lymph Lymphatic: no lymphedema noted Cardio Peripheral pulses: dorsalis pedis pulses present Extremity Common normals: normal capillary refill General: edema Right lower extremity: lower leg Right lower leg: inspection and palpation Left lower extremity: lower leg Left lower leg: inspection and palpation Extremity image (front): 2 1. slow healing wound Neuro Common normals: oriented x3 Results Imaging Venous US: Radiologist's impression: Chemically induced thrombus noted in multiple varicose veins right leg. Romeo Muñoz MD personally performed the services described in this documentation, as scribed by Dalila Peterson RDMS in my presence and it is both accurate and complete. Dalila Muñoz RDMS, am scribing for, and in the presence of, Dr. Jeanine Pabon and in the presence of the patient. Assessment and Plan Assessment and Plan (1) Phlebitis of superficial vein of right lower extremity: Plan Plan is for patient to return for Varithena of right leg on 05/04/24. Romeo Muñoz MD personally performed the services described in this documentation, as scribed by Dalila Peterson RDMS in my presence and it is both accurate and complete. I, Dalila Peterson RDMS, am scribing for, and in the presence of, Dr. Jeanine Pabon and in the presence of the patient.
--- NOTE | 2024-04-23 12:57 | VEIN_ITS ---
Patient Name: YUMIKO FERNANDEZ MR#: [id number] : 1935 Exam Date: 04/23/2024 Ordering Doctor: DR ARIELLA PABON M.D. RADIOLOGY REPORT PROCEDURE: VC EXT VENOUS RT LMTD COMPARISON: VC EXT VENOUS RT LMTD, 03/23/2024. INDICATIONS: I80.01 - Phlebitis and thrombophlebitis of superficial veins right leg TECHNIQUE: Lower extremity higgins scale and Duplex Doppler evaluation of the deep venous system from the inguinal ligament through the calf veins. FINDINGS: REGION: Right lower extremity. THROMBI: Negative for DVT. Chemically induced thrombus in varicose veins right leg. COMPRESSIBILITY: Non-compressible segments corresponding to thrombus FLOW: Areas of no flow corresponding to thrombus OTHER: Small varicose veins distal medial lower leg remain patent. Large semiconductor package symbol stamper mid medial lower leg 5.5 mm. CONCLUSION: 1. Successful post ablation occlusion of right leg treated branch saphenous varicosities. Dictated by: Ariella Pabon M.D. on 04/23/2024 at 13:38 Approved by: Ariella Pabon M.D. on 04/23/2024 at 13:49
--- NOTE | 2024-04-23 12:57 | VEIN_ITS ---
Patient Name: YUMIKO FERNANDEZ MR#: [id number] : 1935 Exam Date: 04/23/2024 Ordering Doctor: DR ARIELLA FLETCHER M.D. RADIOLOGY REPORT PROCEDURE: [facility] EST LMTD VEIN CENTER - OFFICE VISIT FOLLOW UP [facility] PROGRESS NOTES: The patient reports improvement in leg symptoms. There has been interval reduction in varicosities. The patient has followed our recommendations to walk 20-30 minutes once or twice per day since the procedure. Physical exam demonstrates decrease in varicosities of the leg. Persistent varicosities are identified along the medial lower right leg and lateral lower left leg. Small slow healing wound within medial lower right leg. Review of the ultrasound performed the same day demonstrates occlusive thrombus extending throughout the treated vein(s), see separate report, consistent with a successful ablation. No thrombus extending into or beyond the saphenofemoral junction. The patient expressed a desire to proceed with treatment of remaining incompetent branch saphenous varicosities. The patient was informed that treatment was a process and would require approximately 1 more microfoam chemical ablation procedures/sessions. VEIN/[facility] EST LMTD IMPRESSION: 1. Successful ablation of the right leg treated branch saphenous vein(s). 2. Persistent varicose veins and lower extremity symptoms. PLAN: 1. Microfoam chemical ablation of remaining incompetent branch saphenous varicosities within medial lower right leg and lateral lower left leg. 2. Sclerotherapy Nurse notes, history and physical were reviewed and confirmed, see attached forms. The nurse was present throughout the physical exam and consultation Dictated by: Ariella Fletcher M.D. on 04/23/2024 at 13:49 Approved by: Ariella Fletcher M.D. on 04/23/2024 at 13:51
[2024-04-23 13:01] VITALS: BP 112/65; PULSE 76; O2SAT 94; BMI 22.4
--- NOTE | 2024-04-23 13:50 | P.DS_ITS ---
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
== END 2024-04-23 13:59 | disposition home or self-care (01) ==
PROVIDERS: PCP Radiology Diagnostic Radiology; Visit Provider Radiology Diagnostic Radiology
DX: I80.01 Phlebitis and thrombophlebitis of superficial vessels of right lower extremity (principal)
CPT/HCPCS: 93971; G0463

== ENCOUNTER 2024-05-04 13:01 | Outpatient (OUT) | payer MEDICARE, SELFPAY ==
--- NOTE | 2024-05-03 12:39 | VEINCLINIC_ITS ---
Vital Signs 05/04/24 13:10 05/04/24 13:59 Height 5 ft 4 in Weight 61.689 kg BP 102/54 BP Location Right Radial BP Position Sitting BP Cuff Size Adult BP Source Manual Cuff Respiration 18 Pulse 89 Pulse Source Monitor Pulse Oximetry (%) 95 Oxygen Delivery Method Room Air Varicose Veins Patient in this day for microfoam chemical ablation Emil Muñoz MD personally performed the services described in this documentation, as scribed by Cecilio Mendoza RN in my presence and it is both accurate and complete. I, Cecilio Mendoza RN, am scribing for, and in the presence of, Dr. Emil Sweeney and in the presence of the patient. knee: bilateral (Varicose veins noted throughout bilateral legs), calf: bilateral, ankle: bilateral and croft: bilateral aching, burning and dull 4 6 months Worsened in recent months: Yes standing, sitting and walking analgesics, bed rest, elevating extremities, compression stockings and exercise Reports erythema, edema and other (non healing stasis ulceration (left mid calf)) History of lower extremity trauma: No Superficial thrombophlebitis: No Family history of varicose veins: no Has patient had previous lower extremity venous surgery: No Patient has previously received the following treatment(s) for lower extremity varicose veins: Reports none Does patient have a history of : yes Does patient intend to have future pregnancies: no Has patient had lower extremity venous scan with relux testing: Yes Support hose used: Yes (x5 years ) Problems walking or doing physical activity: Yes How does it affect you: non healing wound to mid posteriorm calf Do you walk much: Yes Do you stand much: Yes Medication compliance: good [facility] Medical History (Updated 04/14/24 @ 14:23 by Cecilio Mendoza) Phlebitis of superficial vein of right lower extremity ?I80.01 - Phlebitis and thrombophlebitis of superficial vessels of right lower extremity (ICD-10) Phlebitis of superficial vein of left lower extremity ?I80.02 - Phlebitis and thrombophlebitis of superficial vessels of left lower extremity (ICD-10) Varicose veins of bilateral lower extremities with pain ?I83.813 - Varicose veins of bilateral lower extremities with pain (ICD-10) Chapped lips ?K13.0 - Diseases of lips (ICD-10) Cystitis with hematuria ?N30.91 - Cystitis, unspecified with hematuria (ICD-10) Chronic venous hypertension with ulcer ?I87.319 - Chronic venous hypertension (idiopathic) with ulcer of unspecified lower extremity (ICD-10) ?L97.909 - Non-pressure chronic ulcer of unspecified part of unspecified lower leg with unspecified severity (ICD-10) 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, stage III ?I13.0 - Hypertensive heart and chronic kidney disease with heart failure and stage 1 through stage 4 chronic kidney disease, or unspecified chronic kidney disease (ICD-10) ?N18.30 - Chronic kidney disease, stage 3 unspecified (ICD-10) Chronic atrial fibrillation ?I48.20 - Chronic atrial fibrillation, unspecified (ICD-10) ASHD (arteriosclerotic heart disease) ?I25.10 - Atherosclerotic heart disease of [place] coronary artery without angina pectoris (ICD-10) Hypokalemia ?E87.6 - Hypokalemia (ICD-10) Chest wall pain following surgery ?R07.89 - Other chest pain (ICD-10) ?G89.18 - Other acute postprocedural pain (ICD-10) Pulmonary nodule, left ?R91.1 - Solitary pulmonary nodule (ICD-10) At low risk for fall ?Z91.81 - History of falling (ICD-10) Menopause ?Z78.0 - Asymptomatic menopausal state (ICD-10) Vitamin D deficiency ?E55.9 - Vitamin D deficiency, unspecified (ICD-10) Hyperlipidemia ?E78.5 - Hyperlipidemia, unspecified (ICD-10) LISA (obstructive sleep apnea) ?G47.33 - Obstructive sleep apnea (adult) (pediatric) (ICD-10) Depression screening ?Z13.31 - Encounter for screening for depression (ICD-10) Acute on chronic diastolic (congestive) heart failure ?I50.33 - Acute on chronic diastolic (congestive) heart failure (ICD-10) Primary insomnia ?F51.01 - Primary insomnia (ICD-10) Pain due to varicose veins of both lower extremities ?I83.813 - Varicose veins of bilateral lower extremities with pain (ICD-10) IGLESIAS (dyspnea on exertion) ?R06.09 - Other forms of dyspnea (ICD-10) Gastroesophageal reflux disease with esophagitis ?K21.00 - Gastro-esophageal reflux disease with esophagitis, without bleeding (ICD-10) Stenosis of prosthetic mitral valve ?T82.857A - Stenosis of other cardiac prosthetic devices, implants and grafts, initial encounter (ICD-10) Elevated TSH ?R79.89 - Other specified abnormal findings of blood chemistry (ICD-10) TRAVIS (generalized anxiety disorder) ?F41.1 - Generalized anxiety disorder (ICD-10) Chronic bronchitis ?J42 - Unspecified chronic bronchitis (ICD-10) Decreased diffusion capacity ?R94.2 - Abnormal results of pulmonary function studies (ICD-10) Mitral valve stenosis ?I05.0 - Rheumatic mitral stenosis (ICD-10) Pulmonary hypertension ?I27.20 - Pulmonary hypertension, unspecified (ICD-10) Fatigue ?R53.83 - Other fatigue (ICD-10) Nicotine dependence ?F17.200 - Nicotine dependence, unspecified, uncomplicated (ICD-10) Pacemaker ?Z95.0 - Presence of cardiac pacemaker (ICD-10) COPD (chronic obstructive pulmonary disease) ?J44.9 - Chronic obstructive pulmonary disease, unspecified (ICD-10) Urinary incontinence due to urethral sphincter incompetence ?N36.42 - Intrinsic sphincter deficiency (ISD) (ICD-10) ?R32 - Unspecified urinary incontinence (ICD-10) Bilateral tinnitus ?H93.13 - Tinnitus, bilateral (ICD-10) Nonrheumatic mitral valve regurgitation ?I34.0 - Nonrheumatic mitral (valve) insufficiency (ICD-10) Hypertension ?I10 - Essential (primary) hypertension (ICD-10) Surgical History (Updated 03/17/24 @ 13:49 by Aubrie Dang) S/P TAVR (transcatheter aortic valve replacement) ?Z95.2 - Presence of prosthetic heart valve (ICD-10) Hx of appendectomy ?Z90.49 - Acquired absence of other specified parts of digestive tract (ICD- 10) History of bladder suspension procedure ?Z98.890 - Other specified postprocedural states (ICD-10) ?Z87.448 - Personal history of other diseases of urinary system (ICD-10) History of colonoscopy ?Z98.890 - Other specified postprocedural states (ICD-10) History of dilation of urethra ?Z98.890 - Other specified postprocedural states (ICD-10) History of cystoscopy ?Z98.890 - Other specified postprocedural states (ICD-10) History of maze procedure ?Z98.890 - Other specified postprocedural states (ICD-10) Hx of CABG ?Z95.1 - Presence of aortocoronary bypass graft (ICD-10) History of mitral valve replacement ?Z95.2 - Presence of prosthetic heart valve (ICD-10) Family History (Updated 03/17/24 @ 13:51 by Aubrie Dang) Mother Family history of CHF (congestive heart failure) Pain due to varicose veins of both lower extremities Sister Pain due to varicose veins of both lower extremities Social History (Updated 03/17/24 @ 13:52 by Aubrie Campbellleona) Within the past year, how often did you have a drink containing alcohol: 2-4 times a month Smoking status: Former smoker Non-prescribed substance use: denies use Meds Home Medications and Allergies Home Medications ?Medication ?Instructions ?Recorded ?Confirmed ?Type atorvastatin 20 mg tablet 20 mg PO DAILY 03/17/24 03/17/24 History bumetanide 2 mg tablet 1 mg PO DAILY 03/17/24 03/17/24 History clobetasol 0.05 % topical cream 1 applic topical DAILY 03/17/24 03/17/24 History famotidine 20 mg tablet 20 mg PO DAILY 03/17/24 03/17/24 History metoprolol tartrate 50 mg tablet 25 mg PO DAILY 03/17/24 03/17/24 History potassium chloride 10 mEq 10 meq PO DAILY 03/17/24 03/17/24 History tablet,extended release (Klor-Con) sulfasalazine 500 mg tablet 0.5 g PO DAILY 03/17/24 03/17/24 History warfarin 2 mg tablet (Jantoven) 1 mg PO QWEEK 03/17/24 03/17/24 History zolpidem 10 mg tablet (Ambien) 03/17/24 History Allergies Allergy/AdvReac Type Severity Reaction Status Date / Time iodine Allergy Unknown Verified 02/13/24 14:48 Exam Narrative Exam Narrative: IEmil MD personally performed the services described in this documentation, as scribed by Cecilio Mendoza RN in my presence and it is both accurate and complete. ICecilio RN, am scribing for, and in the presence of, Dr. Emil Sweeney and in the presence of the patient. Assessment and Plan Assessment and Plan (1) Varicose veins of bilateral lower extremities with pain: Plan f/u evaluation with physician along with limited u/s Emil Muñoz MD personally performed the services described in this documentation, as scribed by Cecilio Mendoza RN in my presence and it is both accurate and complete. I, Cecilio Mendoza RN, am scribing for, and in the presence of, Dr. Emil Sweeney and in the presence of the patient. Procedures Procedure Instructions Procedures leg microfoam chemical ablation/Varithena: Risks and benefits of the procedure were discussed at length and informed written consent was obtained.? Time-out procedure was performed and the correct patient and procedure were confirmed.? Staff present during time-out: Cecilio Mendoza RN and Emil Sweeney MD.? Patient prepped and procedure performed in usual sterile fashion.? Patient was placed in Trendelenburg prior to Polidocanol/Varithena injections. Sclerosing Agent:?? 14cc 1% Polidocanol/Varithena Site Injected: Right lecc varithena administered in to a 4mm varicose vein right distal anterior lower leg 2cc varithena administered in to a 3mm varicose vein right distal lateral lower leg 2cc varithena administered in to a 3mm varicose vein right distal medial lower leg 4cc varithena administered in to a 3mm varicose vein left lateral distal lower leg Number of Injections:? 4 The patient tolerated the procedure well without complication.? Hemostasis was obtained and thigh-high compression stocking was applied with foam pads.? Instructed patient to wear stocking for at least 96 hours and sleep with it and only remove for showering.? The patient was instructed to? wear stocking for 2 weeks.? Patient verbalizes understanding and states they will comply.? Patient was given post-procedure instructions. Patient was discharged in good condition.? Scheduled to undergo limited venous ultrasound and? exam 05/11/2024.on I, Emil Sweeney MD personally performed the services described in this documentation, as scribed by Cecilio Mendoza RN in my presence and it is both accurate and complete. ICecilio RN, am scribing for, and in the presence of, Dr. Emil Sweeney and in the presence of the patient.
--- NOTE | 2024-05-03 12:42 | W.VEIN ---
Discharge Plan Discharge Disposition: Home, Self-Care Outpatient Diagnostics: VC Facility EST LMTD (Routine) Timeframe: 2 Weeks Facility: [facility] - Location: Vein Center Ordered By: Emil Sweeney VC EXT Venous RT LMTD (Routine) Timeframe: 2 Weeks Facility: [facility] - Location: Vein Center Ordered By: Emil Sweeney Follow Up Appointments: 05/11/2024 [id number] Plan of Treatment: f/u evaluation with physician along with u/s Patient Instructions: Polidocanol (By injection) (Pat Dawsonthenish) Print Language: [place] Discharge Date/Time: 05/04/24 14:00
--- NOTE | 2024-05-04 13:02 | VEIN_ITS ---
[address] [address] Patient Name: YUMIKO FERNANDEZ MRN: [id number] date: 1935 Sex: F Assigned Patient Location: Current Patient Location: Accession/Order Number: [id number] Exam Date: 05/04/2024 13:05 Report Date: 05/04/2024 14:00 At the request of: ARIELLA FLETCHER Procedure: VC INJ Foam Sclerosant WUS CULTURE MEDIA LABORATORY ASSISTANT PROCEDURE: VC INJ Foam Sclerosant WUS CULTURE MEDIA LABORATORY ASSISTANT COMPARISON: None. HISTORY: I83.813 - Varicose veins of bilateral lower extremities w... Pre-operative Diagnosis: CEAP class C6 venous insufficiency with pain, tenderness, edema and incompetent right saphenous and varicose vein(s), chronic venous insufficiency right leg secondary to venous incompetence Post-operative Diagnosis: CEAP class C6 venous insufficiency with pain, tenderness, edema and incompetent right saphenous and varicose vein(s), chronic venous insufficiency right leg secondary to venous incompetence Procedure Performed: 1. Ultrasound-guided microfoam chemical ablation with Varithenaregistered 2. Intraoperative ultrasound guidance No charge for the left leg Anesthesia: None Indications for Procedure: 89-year-old female who presents with a long history of lower extremity pain and swelling varicose veins. The patient has a new onset nonhealing venous stasis ulcerations on the right distal leg. The patient failed conservative medical therapy including medical compression stockings, exercise and analgesics. Prior procedures include . Multiple incompetent varicosities of the right leg. Duplex scan showed reflux and enlarged diameters up to 4 mm. The patient underwent informed consent including management options where the complications of infection, bleeding, pain, and skin injury were discussed. Particular attention was spent discussing thrombus extension and deep vein thrombosis as well as the possibility of pulmonary embolus and treatment with oral or injectable blood thinners. Procedure: The patient walked to the procedure room. All applicable staff donned appropriate apparel. A procedure timeout was performed to confirm correct patient, correct extremity, correct procedure, and correct room set-up including presence of all applicable supplies, devices, and drugs. A duplex ultrasound, performed by myself confirmed the location and incompetence of branch saphenous varicosities and their course was marked on the skin together with the dilated tributaries. The extent of treatment of the vein and the associated varicosities was determined through ultrasound mapping. The skin was prepped and then punctured with a butterfly needle and advanced under ultrasound guidance. The Varithenaregistered canister was activated and the canister was primed and purged as required in the instructions for use. Varithenaregistered was drawn into a sterile syringe. Following injections were made: 6 cc injected into a 4 mm varicose vein right distal anterior lower leg 2 cc injected into a 3 mm varicose vein right distal lateral lower leg 2 cc injected into a 3 mm varicose vein right distal medial lower leg 4 cc injected into a 3 mm varicose vein left lateral distal lower leg Varithenaregistered was slowly administered at 0.5-1.0 cc/second with close observation by ultrasound of its course in the vessels. Total volume utilized was: 15 cc. Following administration of Varithenaregistered the leg was elevated and the patient was asked to repeatedly dorsiflex the ankle to limit flow of Varithenaregistered into perforating veins. Once appropriate spasm had been confirmed in the treated veins, the vascular catheter was removed from the leg and light pressure was applied over the puncture site for hemostasis. The common femoral and deep superficial veins were then evaluated for flow and compressibility prior to dressing placement. The lower extremity was kept elevated at 45 degrees above the horizontal and cording material was applied over the saphenous segments and tributaries to allow for eccentric compression over the target vessels including the targeted saphenous vein(s). A multilayer dressing was applied consisting of foam pads, coban and thigh-high 20-30 mm Hg compression elastic support hose were placed on the patient. The leg was lowered only after compression had been applied and the patient was immediately ambulatory. The patient ambulated 10 minutes under supervision and was without apparent concerns at time of release. Post-care instructions include advising patient to keep post-treatment bandages in place and dry for 48 hours, avoid extended periods of inactivity, avoid heavy exercise for one week, wear compression stockings on the treated leg continuously for two weeks, to walk daily for 10 minutes over the next month. The patient was instructed to take an anti-inflammatory medicine as needed and to follow up for color duplex scan of the Saphenous veins, the treated branch saphenous varicosities, the adjacent deep veins, and additional treatment within 7 days. PERSONNEL: Cecilio Mendoza RN Electronically authenticated by: JONAS GOODWIN Date: 05/04/2024 14:00
[2024-05-04 13:10] VITALS: BP 102/54; PULSE 89; O2SAT 95
== END 2024-05-04 14:00 | disposition home or self-care (01) ==
LOC: VC 13:01
PROVIDERS: PCP Radiology Diagnostic Radiology; Visit Provider Radiology Diagnostic Radiology
DX: I83.813 Varicose veins of bilateral lower extremities with pain (principal)
CPT/HCPCS: 36466

== ENCOUNTER 2024-05-11 13:17 | Outpatient (OUT) | payer MEDICARE, SELFPAY ==
--- NOTE | 2024-05-11 13:19 | VEIN_ITS ---
Patient Name: YUMIKO FERNANDEZ MR#: [id number] : 1935 Exam Date: 05/11/2024 Ordering Doctor: DR EMIL SWEENEY M.D. RADIOLOGY REPORT PROCEDURE: [facility] EST LMTD VEIN CENTER - OFFICE VISIT FOLLOW UP COMPARISON: [facility] EST LMTD, 04/23/2024. [facility] EST LMTD, 04/07/2024. PROGRESS NOTES: The patient reports no significant problems following micro foam chemical ablation of incompetent varicose veins. The patient has worn her compression stockings. The patient does report having an episode of trauma to the left leg with a slow healing laceration. The patient has a nonhealing ulceration on the right leg. Physical exam demonstrates a 1 cm laceration which is sealed along the left lateral lower leg related to trauma. This does not appear infected. A 1 cm ulceration is identified on the medial distal right lower leg, subjacent to this area is in incompetent perforating vein. Review of the ultrasound performed the same day demonstrates occlusive thrombus extending throughout the treated veins with no deep vein thrombus. Incompetent right leg perforating vein with associated venous stasis ulceration. The patient expressed a desire to proceed with treatment of right leg incompetent perforating. VEIN/[facility] EST TD IMPRESSION: 1. Successful ablation of treated varicose veins 2. Incompetent right leg perforating vein with associated venous stasis ulceration. PLAN: Intravenous laser ablation right leg incompetent perforating vein Nurse notes, history and physical were reviewed and confirmed, see attached forms. The nurse was present throughout the physical exam and consultation Dictated by: Emil Sweeney MD on 05/11/2024 at 14:54 Approved by: Emil Sweeney MD on 05/11/2024 at 14:57
--- NOTE | 2024-05-11 13:19 | VEIN_ITS ---
Patient Name: YUMIKO FERNANDEZ MR#: [id number] : 1935 Exam Date: 05/11/2024 Ordering Doctor: DR EMIL SWEENEY M.D. RADIOLOGY REPORT PROCEDURE: VC EXT VENOUS RT LMTD COMPARISON: VC EXT VENOUS RT LMTD, 04/23/2024. VC EXT VENOUS RT LMTD, 03/23/2024. INDICATIONS: I80.01 - Phlebitis and thrombophlebitis of superficial ve... TECHNIQUE: Lower extremity higgins scale and Duplex Doppler evaluation of the deep venous system from the inguinal ligament through the calf veins. FINDINGS: REGION: Right lower extremity. THROMBI: Negative for DVT. Varithena induced thrombus visualized at dist/lat calf, dist/med calf, and dist/ant calf. COMPRESSIBILITY: Non-compressible segments corresponding to thrombus FLOW: Areas of no flow corresponding to thrombus OTHER: No patent varicose veins remain. Patent automotive title clerk visualized at dist/med calf near wound 4.7mm with 0.8s reflux. CONCLUSION: 1. Post ablation occlusion of treated varicose veins with no residual incompetent varicose veins observed 2. Incompetent right leg perforating vein subjacent to a skin ulceration Dictated by: Emil Sweeney MD on 05/11/2024 at 13:53 Approved by: Emil Sweeney MD on 05/11/2024 at 13:54
[2024-05-11 13:50] VITALS: BMI 23.1
--- NOTE | 2024-05-11 13:50 | V.VEINS.HP ---
Vital Signs 05/11/24 13:50 Height 5 ft 4 in Weight 61 kg BMI 23.1 Varicose Veins Patient in this day for follow up ultrasound post microfoam chemical ablation Emil Muñoz MD personally performed the services described in this documentation, as scribed by Aubrie Dang RVT, RDMS in my presence and it is both accurate and complete. Aubrie Muñoz RVT, RDMS, am scribing for, and in the presence of, Dr. Emil Sweeney and in the presence of the patient. knee: bilateral (Varicose veins noted throughout bilateral legs), calf: bilateral, ankle: bilateral and croft: bilateral aching, burning and dull 4 6 months Worsened in recent months: Yes standing, sitting and walking analgesics, bed rest, elevating extremities, compression stockings and exercise Reports erythema, edema and other (non healing stasis ulceration (left mid calf)) History of lower extremity trauma: No Superficial thrombophlebitis: No Family history of varicose veins: no Has patient had previous lower extremity venous surgery: No Patient has previously received the following treatment(s) for lower extremity varicose veins: Reports none Does patient have a history of : yes Does patient intend to have future pregnancies: no Has patient had lower extremity venous scan with relux testing: Yes Support hose used: Yes (x5 years ) Problems walking or doing physical activity: Yes How does it affect you: non healing wound to mid posteriorm calf Do you walk much: Yes Do you stand much: Yes Medication compliance: good Review of Systems ROS Narrative Emil Muñoz MD personally performed the services described in this documentation, as scribed by Aubrie Dang RVT, RDMS in my presence and it is both accurate and complete. Aubrie Muñoz RVT, RDMS, am scribing for, and in the presence of, Dr. Emil Sweeney and in the presence of the patient. Status of ROS 10 or more systems reviewed and unremarkable except as noted in history and below Cardiovascular Reports: edema, swelling of feet/ankles and leg pain with exertion Musculoskeletal Reports: extremity pain, extremity swelling, limited range of motion, joint swelling, muscle cramps and muscle weakness Integumentary/Breast Reports: itching, redness, skin pain, skin tenderness, skin swelling, new lesion, non-healing lesion and changes in skin color Neurological Reports: numbness in extremities and weakness in extremities [facility] Medical History (Updated 04/14/24 @ 14:23 by Cecilio Mendoza) Phlebitis of superficial vein of right lower extremity ?I80.01 - Phlebitis and thrombophlebitis of superficial vessels of right lower extremity (ICD-10) Phlebitis of superficial vein of left lower extremity ?I80.02 - Phlebitis and thrombophlebitis of superficial vessels of left lower extremity (ICD-10) Varicose veins of bilateral lower extremities with pain ?I83.813 - Varicose veins of bilateral lower extremities with pain (ICD-10) Chapped lips ?K13.0 - Diseases of lips (ICD-10) Cystitis with hematuria ?N30.91 - Cystitis, unspecified with hematuria (ICD-10) Chronic venous hypertension with ulcer ?I87.319 - Chronic venous hypertension (idiopathic) with ulcer of unspecified lower extremity (ICD-10) ?L97.909 - Non-pressure chronic ulcer of unspecified part of unspecified lower leg with unspecified severity (ICD-10) 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18 - Other acute postprocedural pain (ICD-10) Pulmonary nodule, left ?R91.1 - Solitary pulmonary nodule (ICD-10) At low risk for fall ?Z91.81 - History of falling (ICD-10) Menopause ?Z78.0 - Asymptomatic menopausal state (ICD-10) Vitamin D deficiency ?E55.9 - Vitamin D deficiency, unspecified (ICD-10) Hyperlipidemia ?E78.5 - Hyperlipidemia, unspecified (ICD-10) LISA (obstructive sleep apnea) ?G47.33 - Obstructive sleep apnea (adult) (pediatric) (ICD-10) Depression screening ?Z13.31 - Encounter for screening for depression (ICD-10) Acute on chronic diastolic (congestive) heart failure ?I50.33 - Acute on chronic diastolic (congestive) heart failure (ICD-10) Primary insomnia ?F51.01 - Primary insomnia (ICD-10) Pain due to varicose veins of both lower extremities ?I83.813 - Varicose veins of bilateral lower extremities with pain (ICD-10) IGLESIAS (dyspnea on exertion) ?R06.09 - Other forms of dyspnea (ICD-10) Gastroesophageal reflux disease with esophagitis ?K21.00 - Gastro-esophageal reflux disease with esophagitis, without bleeding (ICD-10) Stenosis of prosthetic mitral valve ?T82.857A - Stenosis of other cardiac prosthetic devices, implants and grafts, initial encounter (ICD-10) Elevated TSH ?R79.89 - Other specified abnormal findings of blood chemistry (ICD-10) TRAVIS (generalized anxiety disorder) ?F41.1 - Generalized anxiety disorder (ICD-10) Chronic bronchitis ?J42 - Unspecified chronic bronchitis (ICD-10) Decreased diffusion capacity ?R94.2 - Abnormal results of pulmonary function studies (ICD-10) Mitral valve stenosis ?I05.0 - Rheumatic mitral stenosis (ICD-10) Pulmonary hypertension ?I27.20 - Pulmonary hypertension, unspecified (ICD-10) Fatigue ?R53.83 - Other fatigue (ICD-10) Nicotine dependence ?F17.200 - Nicotine dependence, unspecified, uncomplicated (ICD-10) Pacemaker ?Z95.0 - Presence of cardiac pacemaker (ICD-10) COPD (chronic obstructive pulmonary disease) ?J44.9 - Chronic obstructive pulmonary disease, unspecified (ICD-10) Urinary incontinence due to urethral sphincter incompetence ?N36.42 - Intrinsic sphincter deficiency (ISD) (ICD-10) ?R32 - Unspecified urinary incontinence (ICD-10) Bilateral tinnitus ?H93.13 - Tinnitus, bilateral (ICD-10) Nonrheumatic mitral valve regurgitation ?I34.0 - Nonrheumatic mitral (valve) insufficiency (ICD-10) Hypertension ?I10 - Essential (primary) hypertension (ICD-10) Surgical History (Updated 03/17/24 @ 13:49 by Aubrie Dang) S/P TAVR (transcatheter aortic valve replacement) ?Z95.2 - Presence of prosthetic heart valve (ICD-10) Hx of appendectomy ?Z90.49 - Acquired absence of other specified parts of digestive tract (ICD-10) History of bladder suspension procedure ?Z98.890 - Other specified postprocedural states (ICD-10) ?Z87.448 - Personal history of other diseases of urinary system (ICD-10) History of colonoscopy ?Z98.890 - Other specified postprocedural states (ICD-10) History of dilation of urethra ?Z98.890 - Other specified postprocedural states (ICD-10) History of cystoscopy ?Z98.890 - Other specified postprocedural states (ICD-10) History of maze procedure ?Z98.890 - Other specified postprocedural states (ICD-10) Hx of CABG ?Z95.1 - Presence of aortocoronary bypass graft (ICD-10) History of mitral valve replacement ?Z95.2 - Presence of prosthetic heart valve (ICD-10) Family History (Updated 03/17/24 @ 13:51 by Aubrie Dang) Mother Family history of CHF (congestive heart failure) Pain due to varicose veins of both lower extremities Sister Pain due to varicose veins of both lower extremities Social History (Updated 03/17/24 @ 13:52 by Aubrie Dang) Within the past year, how often did you have a drink containing alcohol: 2-4 times a month Smoking status: Former smoker Non-prescribed substance use: denies use Meds Home Medications and Allergies Home Medications ?Medication ?Instructions ?Recorded ?Confirmed ?Type atorvastatin 20 mg tablet 20 mg PO DAILY 03/17/24 03/17/24 History bumetanide 2 mg tablet 1 mg PO DAILY 03/17/24 03/17/24 History clobetasol 0.05 % topical cream 1 applic topical DAILY 03/17/24 03/17/24 History famotidine 20 mg tablet 20 mg PO DAILY 03/17/24 03/17/24 History metoprolol tartrate 50 mg tablet 25 mg PO DAILY 03/17/24 03/17/24 History potassium chloride 10 mEq 10 meq PO DAILY 03/17/24 03/17/24 History tablet,extended release (Klor-Con) sulfasalazine 500 mg tablet 0.5 g PO DAILY 03/17/24 03/17/24 History warfarin 2 mg tablet (Jantoven) 1 mg PO QWEEK 03/17/24 03/17/24 History zolpidem 10 mg tablet (Ambien) 03/17/24 History Allergies Allergy/AdvReac Type Severity Reaction Status Date / Time iodine Allergy Unknown Verified 02/13/24 14:48 Exam Narrative Exam Narrative: IEmil MD personally performed the services described in this documentation, as scribed by Aubrie Dang RVT, RDMS in my presence and it is both accurate and complete. IAubrie RVT, RDMS, am scribing for, and in the presence of, Dr. Emil Sweeney and in the presence of the patient.t. Results Imaging Venous US: Radiologist's impression: The ultrasound demonstrates Varithena induced thrombus visualized at dist/lat calf, dist/med calf, and dist/ant calf. Assessment and Plan Assessment and Plan (1) Phlebitis of superficial vein of right lower extremity: (2) Varicose veins of bilateral lower extremities with pain: Plan Patient in today for follow up ultrasound of lower extremity following treatment of Varithena/microfoam completed on 05/04/24.
--- NOTE | 2024-05-11 13:54 | W.VEIN ---
Discharge Plan Discharge Disposition: Home, Self-Care Outpatient Diagnostics: [facility] Endovenous Ablation 1VeinRT (Routine) Timeframe: 2 Weeks Facility: [facility] - Location: [facility] Ordered By: Emil Sweeney Follow Up Appointments: 05/27/24 Plan of Treatment: EVLT of right leg perforators Print Language: Lao Discharge Date/Time: 05/11/24 14:29
== END 2024-05-11 14:29 | disposition home or self-care (01) ==
PROVIDERS: PCP Radiology Diagnostic Radiology; Visit Provider Radiology Diagnostic Radiology
DX: I80.01 Phlebitis and thrombophlebitis of superficial vessels of right lower extremity (principal)
CPT/HCPCS: 93971; G0463

== ENCOUNTER 2024-05-31 13:00 | Outpatient (OUT) | payer MEDICARE, SELFPAY ==
--- NOTE | 2024-05-28 13:44 | VEINCLINIC_ITS ---
Vital Signs 05/31/24 13:25 05/31/24 13:28 Height 5 ft 4 in Weight 63.503 kg BP 126/70 BP Location Left Brachial BP Position Sitting BP Cuff Size Adult BP Source Manual Cuff Respiration 18 Pulse 76 Pulse Source Monitor Pulse Oximetry (%) 95 Oxygen Delivery Method Room Air Comment The patient's blood pressure is elevated. Varicose Veins Patient in this day for EVLT of right leg perforating veins Emil Muñoz MD personally performed the services described in this documenta tion, as scribed by Cecilio Mendoza RN in my presence and it is both accurate and complete. ICecilio RN, am scribing for, and in the presence of, Dr. Emil Sweeney and in the presence of the patient. knee: bilateral (Varicose veins noted throughout bilateral legs), calf: bilateral, ankle: bilateral and croft: bilateral aching, burning and dull 4 6 months Worsened in recent months: Yes standing, sitting and walking analgesics, bed rest, elevating extremities, compression stockings and exercise Reports erythema, edema and other (non healing stasis ulceration (left mid calf)) History of lower extremity trauma: No Superficial thrombophlebitis: No Family history of varicose veins: no Has patient had previous lower extremity venous surgery: No Patient has previously received the following treatment(s) for lower extremity varicose veins: Reports none Does patient have a history of : yes Does patient intend to have future pregnancies: no Has patient had lower extremity venous scan with relux testing: Yes Support hose used: Yes (x5 years ) Problems walking or doing physical activity: Yes How does it affect you: non healing wound to mid posteriorm calf Do you walk much: Yes Do you stand much: Yes Medication compliance: good Review of Systems ROS Narrative Emil Muñzo MD personally performed the services described in this documentation, as scribed by Cecilio Mendoza RN in my presence and it is both accurate and complete. ICecilio RN, am scribing for, and in the presence of, Dr. Emil Sweeney and in the presence of the patient. Status of ROS 10 or more systems reviewed and unremark able except as noted in history and below Cardiovascular Reports: edema, swelling of feet/ankles and leg pain with exertion Musculoskeletal Reports: extremity pain, extremity swelling, limited range of motion, joint swelling, muscle cramps and muscle weakness Integumentary/Breast Reports: itching, redness, skin pain, skin tenderness, skin swelling, new lesion, non-healing lesion and changes in skin color Neurological Reports: numbness in extremities and weakness in extremities [facility] Medical History (Updated 04/14/24 @ 14:23 by Cecilio Mendoza) Phlebitis of superficial vein of right lower extremity ?I80.01 - Phlebitis and thrombophlebitis of superficial vessels of right lower extremity (ICD-10) Phlebitis of superficial vein of left lower extremity ?I80.02 - Phlebitis and thrombophlebitis of superficial vessels of left lower extremity (ICD-10) Varicose veins of bilateral lower extremities with pain ?I83.813 - Varicose veins of bilateral lower extremities with pain (ICD-10) Chapped lips ?K13.0 - Diseases of lips (ICD-10) Cystitis with hematuria ?N30.91 - Cystitis, unspecified with hematuria (ICD-10) Chronic venous hypertension with ulcer ?I87.319 - Chronic venous hypertension (idiopathic) with ulcer of unspecified lower extremity (ICD-10) ?L97.909 - Non-pressure chronic ulcer of unspecified part of unspecified lower leg with unspecified severity (ICD-10) 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, stage III ?I13.0 - Hypertensive heart and chronic kidney disease with heart failure and stage 1 through stage 4 chronic kidney disease, or unspecified chronic kidney disease (ICD-10) ?N18.30 - Chronic kidney disease, stage 3 unspecified (ICD-10) Chronic atrial fibrillation ?I48.20 - Chronic atrial fibrillation, unspecified (ICD-10) ASHD (arteriosclerotic heart disease) ?I25.10 - Atherosclerotic heart disease of lime coronary artery without angina pectoris (ICD-10) Hypokalemia ?E87.6 - Hypokalemia (ICD-10) Chest wall pain following surgery ?R07.89 - Other chest pain (ICD-10) ?G89.18 - Other acute postprocedural pain (ICD-10) Pulmonary nodule, left ?R91.1 - Solitary pulmonary nodule (ICD-10) At low risk for fall ?Z91.81 - History of falling (ICD-10) Menopause ?Z78.0 - Asymptomatic menopausal state (ICD-10) Vitamin D deficiency ?E55.9 - Vitamin D deficiency, unspecified (ICD-10) Hyperlipidemia ?E78.5 - Hyperlipidemia, unspecified (ICD-10) LISA (obstructive sleep apnea) ?G47.33 - Obstructive sleep apnea (adult) (pediatric) (ICD-10) Depression screening ?Z13.31 - Encounter for screening for depression (ICD-10) Acute on chronic diastolic (congestive) heart failure ?I50.33 - Acute on chronic diastolic (congestive) heart failure (ICD-10) Primary insomnia ?F51.01 - Primary insomnia (ICD-10) Pain due to varicose veins of both lower extremities ?I83.813 - Varicose veins of bilateral lower extremities with pain (ICD-10) IGLESIAS (dyspnea on exertion) ?R06.09 - Other forms of dyspnea (ICD-10) Gastroesophageal reflux disease with esophagitis ?K21.00 - Gastro-esophageal reflux disease with esophagitis, without bleeding (ICD-10) Stenosis of prosthetic mitral valve ?T82.857A - Stenosis of other cardiac prosthetic devices, implants and grafts, initial encounter (ICD-10) Elevated TSH ?R79.89 - Other specified abnormal findings of blood chemistry (ICD-10) TRAVIS (generalized anxiety disorder) ?F41.1 - Generalized anxiety disorder (ICD-10) Chronic bronchitis ?J42 - Unspecified chronic bronchitis (ICD-10) Decreased diffusion capacity ?R94.2 - Abnormal results of pulmonary function studies (ICD-10) Mitral valve stenosis ?I05.0 - Rheumatic mitral stenosis (ICD-10) Pulmonary hypertension ?I27.20 - Pulmonary hypertension, unspecified (ICD-10) Fatigue ?R53.83 - Other fatigue (ICD-10) Nicotine dependence ?F17.200 - Nicotine dependence, unspecified, uncomplicated (ICD-10) Pacemaker ?Z95.0 - Presence of cardiac pacemaker (ICD-10) COPD (chronic obstructive pulmonary disease) ?J44.9 - Chronic obstructive pulmonary disease, unspecified (ICD-10) Urinary incontinence due to urethral sphincter incompetence ?N36.42 - Intrinsic sphincter deficiency (ISD) (ICD-10) ?R32 - Unspecified urinary incontinence (ICD-10) Bilateral tinnitus ?H93.13 - Tinnitus, bilateral (ICD-10) Nonrheumatic mitral valve regurgitation ?I34.0 - Nonrheumatic mitral (valve) insufficiency (ICD-10) Hypertension ?I10 - Essential (primary) hypertension (ICD-10) Surgical History (Updated 05/31/24 @ 13:30 by Cecilio Mendoza) Status post laser ablation of incompetent vein ?Z98.890 - Other specified postprocedural states (ICD-10) S/P TAVR (transcatheter aortic valve replacement) ?Z95.2 - Presence of prosthetic heart valve (ICD-10) Hx of appendectomy ?Z90.49 - Acquired absence of other specified parts of digestive tract (ICD- 10) History of bladder suspension procedure ?Z98.890 - Other specified postprocedural states (ICD-10) ?Z87.448 - Personal history of other diseases of urinary system (ICD-10) History of colonoscopy ?Z98.890 - Other specified postprocedural states (ICD-10) History of dilation of urethra ?Z98.890 - Other specified postprocedural states (ICD-10) History of cystoscopy ?Z98.890 - Other specified postprocedural states (ICD-10) History of maze procedure ?Z98.890 - Other specified postprocedural states (ICD-10) Hx of CABG ?Z95.1 - Presence of aortocoronary bypass graft (ICD-10) History of mitral valve replacement ?Z95.2 - Presence of prosthetic heart valve (ICD-10) Family History (Updated 03/17/24 @ 13:51 by Aubrie Dang) Mother Family history of CHF (congestive heart failure) Pain due to varicose veins of both lower extremities Sister Pain due to varicose veins of both lower extremities Social History (Updated 03/17/24 @ 13:52 by Aubrie Dang) Within the past year, how often did you have a drink containing alcohol: 2-4 times a month Smoking status: Former smoker Non-prescribed substance use: denies use Meds Home Medications and Allergies Home Medications ?Medication ?Instructions ?Recorded ?Confirmed ?Type atorvastatin 20 mg tablet 20 mg PO DAILY 03/17/24 03/17/24 History bumetanide 2 mg tablet 1 mg PO DAILY 03/17/24 03/17/24 History clobetasol 0.05 % topical cream 1 applic topical DAILY 03/17/24 03/17/24 History famotidine 20 mg tablet 20 mg PO DAILY 03/17/24 03/17/24 History metoprolol tartrate 50 mg tablet 25 mg PO DAILY 03/17/24 03/17/24 History potassium chloride 10 mEq 10 meq PO DAILY 03/17/24 03/17/24 History tablet,extended release (Klor-Con) sulfasalazine 500 mg tablet 0.5 g PO DAILY 03/17/24 03/17/24 History warfarin 2 mg tablet (Jantoven) 1 mg PO QWEEK 03/17/24 03/17/24 History zolpidem 10 mg tablet (Ambien) 03/17/24 History Allergies Allergy/AdvReac Type Severity Reaction Status Date / Time iodine Allergy Unknown Verified 02/13/24 14:48 Assessment and Plan Assessment and Plan (1) Varicose veins of bilateral lower extremities with pain: Plan f/u evaluation with physician along right leg limited u/s IEmil MD personally performed the services described in this documentation, as scribed by Cecilio Mendoza RN in my presence and it is both accurate and complete. ICecilio RN, am scribing for, and in the presence of, Dr. Emil Sweeney and in the presence of the patient. Procedures Procedure Instructions Procedures Plan of care: Risks and benefits of the procedure were discussed at length and informed written consent was obtained.? Time-out completed for verification of correct patient, procedure and site.? Staff present during time-out: Cecilio Mendoza RN,? Emil Sweeney MD, Dalila Peterson [facility] [[email or web address]], Time Out [id number] Patient prepped and procedure performed in usual sterile fashion. Risk of injury related to use of Diode laser and/or laser devices? __CR___ ? Serial number of laser used :? [id number] Control panel self test performed, electrical cords in good condition, floor is dry, basin of water available, fire extinguisher in close proximity_CR__ Polycarbonate goggles available and Laser warning signs outside of doors___CR__ Eye protection provided to patient and staff in room_CR___ Use of laser retardant drapes and dull blackened instruments as directed__CR___ Use of nonflammable prep solutions and use of saline soaked sponges to protect tissues as indicated _CR___ Laser operated by __Dr. Sweeney Physician verbal confirmation laser locked in place__CR__ Laser start time (date and time) __05/31/2024@_1338 Laser stop time(date and time) __05/31/2024@_1340 Laser site #1 Joules: 258 Seconds: 32 Lee _8.0___ Pulse continuous ___CR_? Pulse intermittent ___ Evaluated patient for signs and symptoms of electrical injury __CR___ ? Skin clear at insertion site __CR___ Patient tolerated procedure well.? Right leg Coban dressing applied to access site.? Applied right thigh high leg compression stocking. Will return on 06/14/2024 for right leg limited venous ultrasound and exam. IEmil MD personally performed the services described in this documentation, as scribed by Cecilio Mendoza RN in my presence and it is both accurate and complete. I, Cecilio Mendoza RN, am scribing for, and in the presence of, Dr. Emil Sweeney and in the presence of the patient.
--- NOTE | 2024-05-28 13:47 | W.VEIN ---
Discharge Plan Discharge Disposition: Home, Self-Care Outpatient Diagnostics: VC Facility EST LMTD (Routine) Timeframe: 2 Weeks Facility: [facility] - Location: [facility] Center Ordered By: Emil Sweeney VC EXT Venous RT LMTD (Routine) Timeframe: 2 Weeks Facility: [facility] - Location: Vein Center Ordered By: Emil Sweeney Follow Up Appointments: 06/14/2024 Plan of Treatment: f/u evaluation with physician along with right leg limited u/s Patient Instructions: Endovenous Ablation (DC) Print Language: Lao Discharge Date/Time: 05/31/24 13:26
[2024-05-31] MEDS: LIDOCAINE HCL 20 ML, SODIUM BICARBONATE 2 MEQ INJ (12:57)
--- NOTE | 2024-05-31 13:01 | VEIN_ITS ---
[address] [address] Patient Name: YUMIKO FERNANDEZ MRN: [id number] date: 1935 Sex: F Assigned Patient Location: Current Patient Location: Accession/Order Number: [id number] Exam Date: 05/31/2024 13:05 Report Date: 05/31/2024 15:14 At the request of: JONAS GOODWIN Procedure: VC Endovenous Perf Ablation RT EXAMINATION: VC Endovenous Perf Ablation RT COMPARISON: INDICATIONS: I83.813 - Varicose veins of bilateral lower extremities w... OPERATIVE REPORT: Diagnosis: Superficial venous reflux, incompetent perforating veins Procedure: Endovenous laser ablation of the right leguillon debeader(s) Procedure: The patient was positioned supine on the table and the leg was prepped and draped to allow for visualization during venous access. A sterile cover was draped over a 16 mhz ultrasound probe. Venous mapping was performed prior to the procedure noting location and size of vessel(s). Marine Erector vein 1: Distal medial left lower leg. The diameter of the vein ranged from 5 mm's below the muscular fascia to 5 mm's at the entry point. Using a 30 gauge needle the entry site was anesthetized with 1 cc of 1% buffered lidocaine. Access was gained percutaneously, with a 21-gauge needle, into the leguillon debeader vein under ultrasound guidance. The needle was advanced into the desired position and the pre-measured 400-micron fiber was then inserted into the needle and locked in place. The position of the fiber was imaged with ultrasound guidance. The fiber tip was visualized to be 20 mm from the deep vessel. An anesthetic solution of 8 cc 1% buffered lidocaine was delivered along the course of the vein under ultrasound guidance using a syringe. A final positioning check of the laser fiber tip was performed. The laser was activated by means of a foot-pedal and the fiber and needle were withdrawn together in accordance to the desired joules per treatment area/spot weld. 4 areas/spot welds were performed, and the total number of joules delivered was 258. The total time of energy delivery was 32 seconds. A duplex ultrasound revealed compressibility and flow of the deep system immediately after the procedure. Hemostasis of the access site was achieved and dressed. A 20-30 mm compression stocking over coban was placed on the treated leg. Post-Op instructions were given, and a follow-up appointment was made. CONCLUSION: 1. Technically successful endovenous laser ablation of incompetent right leg perforating vein subjacent to an active venous stasis ulceration Electronically authenticated by: JONAS GOODWIN Date: 05/31/2024 15:14
[2024-05-31 13:28] VITALS: BP 126/70; PULSE 76; O2SAT 95
== END 2024-05-31 13:26 | disposition home or self-care (01) ==
LOC: VC 13:00
PROVIDERS: PCP Radiology Diagnostic Radiology; Visit Provider Radiology Diagnostic Radiology
DX: I83.813 Varicose veins of bilateral lower extremities with pain (principal)
CPT/HCPCS: 36478

== ENCOUNTER 2024-06-14 12:51 | Outpatient (OUT) | payer MEDICARE, SELFPAY ==
--- NOTE | 2024-06-14 07:36 | VEINCLINIC_ITS ---
Vital Signs 3 06/14/24 13:18 Height 5 ft 4 in Weight 61 kg BMI 23.1 Varicose Veins Patient in today for follow up ultrasound of right lower extremity following EVLT of right leg tubing machine tender completed on 05/31/24. Romeo Muñoz MD personally performed the services described in this documentation, as scribed by Dalila Peterson RDMS in my presence and it is both accurate and complete. Toni, Dalila Peterson RDMS, am scribing for, and in the presence of, Dr. Jeanine Pabon and in the presence of the patient. knee: bilateral (Varicose veins noted throughout bilateral legs), calf: bilateral, ankle: bilateral and croft: bilateral aching, burning and dull 4 6 months Worsened in recent months: Yes standing, sitting and walking analgesics, bed rest, elevating extremities, compression stockings and exercise Reports erythema, edema and other (non healing stasis ulceration (left mid calf)) History of lower extremity trauma: No Superficial thrombophlebitis: No Family history of varicose veins: no Has patient had previous lower extremity venous surgery: No Patient has previously received the following treatment(s) for lower extremity varicose veins: Reports none Does patient have a history of : yes Does patient intend to have future pregnancies: no Has patient had lower extremity venous scan with relux testing: Yes Support hose used: Yes (x5 years ) Problems walking or doing physical activity: Yes How does it affect you: non healing wound to mid posteriorm calf Do you walk much: Yes Do you stand much: Yes Medication compliance: good Review of Systems 2 ROS0 Narrative Romeo Muñoz MD personally performed the services described in this documentation, as scribed by Dalila Peterson RDMS in my presence and it is both accurate and complete. Dalila Muñoz RDMS, am scribing for, and in the presence of, Dr. Jeanine Pabon and in the presence of the patient. Status of ROS 10 or more systems reviewed and unremark able except as noted in history and below Cardiovascular Reports: edema, swelling of feet/ankles and leg pain with exertion Musculoskeletal Reports: extremity pain, extremity swelling, limited range of motion, joint swelling, muscle cramps and muscle weakness Integumentary/Breast Reports: itching, redness, skin pain, skin tenderness, skin swelling, new lesion, non-healing lesion and changes in skin color Neurological Reports: numbness in extremities and weakness in extremities PFSH [facility] Medical History (Updated 04/14/24 @ 14:23 by Cecilio Mendoza) Phlebitis of superficial vein of right lower extremity ?I80.01 - Phlebitis and thrombophlebitis of superficial vessels of right lower extremity (ICD-10) Phlebitis of superficial vein of left lower extremity ?I80.02 - Phlebitis and thrombophlebitis of superficial vessels of left lower extremity (ICD-10) Varicose veins of bilateral lower extremities with pain ?I83.813 - Varicose veins of bilateral lower extremities with pain (ICD-10) Chapped lips ?K13.0 - Diseases of lips (ICD-10) Cystitis with hematuria ?N30.91 - Cystitis, unspecified with hematuria (ICD-10) Chronic venous hypertension with ulcer ?I87.319 - Chronic venous hypertension (idiopathic) with ulcer of unspecified lower extremity (ICD-10) ?L97.909 - Non-pressure chronic ulcer of unspecified part of unspecified lower leg with unspecified severity (ICD-10) 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, stage III ?I13.0 - Hypertensive heart and chronic kidney disease with heart failure and stage 1 through stage 4 chronic kidney disease, or unspecified chronic kidney disease (ICD-10) ?N18.30 - Chronic kidney disease, stage 3 unspecified (ICD-10) Chronic atrial fibrillation ?I48.20 - Chronic atrial fibrillation, unspecified (ICD-10) ASHD (arteriosclerotic heart disease) ?I25.10 - Atherosclerotic heart disease of [place] coronary artery without angina pectoris (ICD-10) Hypokalemia ?E87.6 - Hypokalemia (ICD-10) Chest wall pain following surgery ?R07.89 - Other chest pain (ICD-10) ?G89.18 - Other acute postprocedural pain (ICD-10) Pulmonary nodule, left ?R91.1 - Solitary pulmonary nodule (ICD-10) At low risk for fall ?Z91.81 - History of falling (ICD-10) Menopause ?Z78.0 - Asymptomatic menopausal state (ICD-10) Vitamin D deficiency ?E55.9 - Vitamin D deficiency, unspecified (ICD-10) Hyperlipidemia ?E78.5 - Hyperlipidemia, unspecified (ICD-10) LISA (obstructive sleep apnea) ?G47.33 - Obstructive sleep apnea (adult) (pediatric) (ICD-10) Depression screening ?Z13.31 - Encounter for screening for depression (ICD-10) Acute on chronic diastolic (congestive) heart failure ?I50.33 - Acute on chronic diastolic (congestive) heart failure (ICD-10) Primary insomnia ?F51.01 - Primary insomnia (ICD-10) Pain due to varicose veins of both lower extremities ?I83.813 - Varicose veins of bilateral lower extremities with pain (ICD-10) IGLESIAS (dyspnea on exertion) ?R06.09 - Other forms of dyspnea (ICD-10) Gastroesophageal reflux disease with esophagitis ?K21.00 - Gastro-esophageal reflux disease with esophagitis, without bleeding (ICD-10) Stenosis of prosthetic mitral valve ?T82.857A - Stenosis of other cardiac prosthetic devices, implants and grafts, initial encounter (ICD-10) Elevated TSH ?R79.89 - Other specified abnormal findings of blood chemistry (ICD-10) TRAVIS (generalized anxiety disorder) ?F41.1 - Generalized anxiety disorder (ICD-10) Chronic bronchitis ?J42 - Unspecified chronic bronchitis (ICD-10) Decreased diffusion capacity ?R94.2 - Abnormal results of pulmonary function studies (ICD-10) Mitral valve stenosis ?I05.0 - Rheumatic mitral stenosis (ICD-10) Pulmonary hypertension ?I27.20 - Pulmonary hypertension, unspecified (ICD-10) Fatigue ?R53.83 - Other fatigue (ICD-10) Nicotine dependence ?F17.200 - Nicotine dependence, unspecified, uncomplicated (ICD-10) Pacemaker ?Z95.0 - Presence of cardiac pacemaker (ICD-10) COPD (chronic obstructive pulmonary disease) ?J44.9 - Chronic obstructive pulmonary disease, unspecified (ICD-10) Urinary incontinence due to urethral sphincter incompetence ?N36.42 - Intrinsic sphincter deficiency (ISD) (ICD-10) ?R32 - Unspecified urinary incontinence (ICD-10) Bilateral tinnitus ?H93.13 - Tinnitus, bilateral (ICD-10) Nonrheumatic mitral valve regurgitation ?I34.0 - Nonrheumatic mitral (valve) insufficiency (ICD-10) Hypertension ?I10 - Essential (primary) hypertension (ICD-10) Surgical History (Updated 05/31/24 @ 13:30 by Cecilio Mendoza) Status post laser ablation of incompetent vein ?Z98.890 - Other specified postprocedural states (ICD-10) S/P TAVR (transcatheter aortic valve replacement) ?Z95.2 - Presence of prosthetic heart valve (ICD-10) Hx of appendectomy ?Z90.49 - Acquired absence of other specified parts of digestive tract (ICD- 10) History of bladder suspension procedure ?Z98.890 - Other specified postprocedural states (ICD-10) ?Z87.448 - Personal history of other diseases of urinary system (ICD-10) History of colonoscopy ?Z98.890 - Other specified postprocedural states (ICD-10) History of dilation of urethra ?Z98.890 - Other specified postprocedural states (ICD-10) History of cystoscopy ?Z98.890 - Other specified postprocedural states (ICD-10) History of maze procedure ?Z98.890 - Other specified postprocedural states (ICD-10) Hx of CABG ?Z95.1 - Presence of aortocoronary bypass graft (ICD-10) History of mitral valve replacement ?Z95.2 - Presence of prosthetic heart valve (ICD-10) Family History (Updated 03/17/24 @ 13:51 by Aubrie Dang) Mother Family history of CHF (congestive heart failure) Pain due to varicose veins of both lower extremities Sister Pain due to varicose veins of both lower extremities Social History (Updated 03/17/24 @ 13:52 by Aubrie Dang) Within the past year, how often did you have a drink containing alcohol: 2-4 times a month Smoking status: Former smoker Non-prescribed substance use: denies use Meds Home Medications and Allergies Home Medications ?Medication ?Instructions ?Recorded ?Confirmed ?Type atorvastatin 20 mg tablet 20 mg PO DAILY 03/17/24 03/17/24 History bumetanide 2 mg tablet 1 mg PO DAILY 03/17/24 03/17/24 History clobetasol 0.05 % topical cream 1 applic topical DAILY 03/17/24 03/17/24 History famotidine 20 mg tablet 20 mg PO DAILY 03/17/24 03/17/24 History metoprolol tartrate 50 mg tablet 25 mg PO DAILY 03/17/24 03/17/24 History potassium chloride 10 mEq 10 meq PO DAILY 03/17/24 03/17/24 History tablet,extended release (Klor-Con) sulfasalazine 500 mg tablet 0.5 g PO DAILY 03/17/24 03/17/24 History warfarin 2 mg tablet (Jantoven) 1 mg PO QWEEK 03/17/24 03/17/24 History zolpidem 10 mg tablet (Ambien) 03/17/24 History Allergies Allergy/AdvReac Type Severity Reaction Status Date / Time iodine Allergy Unknown Verified 02/13/24 14:48 Exam Narrative Exam Narrative: Romeo Muñoz MD personally performed the services described in this documentation, as scribed by Dalila Peterson RDMS in my presence and it is both accurate and complete. Dalila Muñoz RDMS, am scribing for, and in the presence of, Dr. Jeanine Pabon and in the presence of the patient. Extremity General: normal exam except as noted, edema and other findings (slow healing wounds bilateral lower leg) Right lower extremity: lower leg Left lower extremity: lower leg Extremity image (front): 2 1. 1 cm slow healing wound 2. Slow healing wound Results Imaging Venous US: Radiologist's impression: Heat induced thrombus in right distal lower leg tubing machine tender. Romeo Muñoz MD personally performed the services described in this documentation, as scribed by Dalila Peterson RDMS in my presence and it is both accurate and complete. Dalila Muñoz RDMS, am scribing for, and in the presence of, Dr. Jeanine Pabon and in the presence of the patient. Assessment and Plan Assessment and Plan (1) Phlebitis of superficial vein of right lower extremity: Plan Patient is done with treatment at this time. Follow up as needed or in 1-2 years. Romeo Muñoz MD personally performed the services described in this documentation, as scribed by Dalila Peterson RDMS in my presence and it is both accurate and complete. Dalila Muñoz RDMS am scribing for, and in the presence of, Dr. Jeanine Pabon and in the presence of the patient.
--- NOTE | 2024-06-14 12:52 | VEIN_ITS ---
Patient Name: YUMIKO FERNANDEZ MR#: [id number] : 1935 Exam Date: 06/14/2024 Ordering Doctor: DR JONAS GOODWIN M.D. RADIOLOGY REPORT PROCEDURE: VC EXT VENOUS RT LMTD COMPARISON: VC EXT VENOUS RT LMTD, 05/11/2024. INDICATIONS: I80.01 - Phlebitis and thrombophlebitis of superficial veins right leg TECHNIQUE: Lower extremity higgins scale and Duplex Doppler evaluation of the deep venous system from the inguinal ligament through the calf veins. FINDINGS: REGION: Right lower extremity. THROMBI: Negative for DVT. Heat induced thrombus in broomcorn seeder distal medial lower right leg. COMPRESSIBILITY: Non-compressible segments corresponding to thrombus FLOW: Areas of no flow corresponding to thrombus OTHER: No significant varicose veins remain in right leg. CONCLUSION: 1. Successful post ablation occlusion of right leg treated broomcorn seeder veins. Dictated by: Romeo Pabon M.D. on 06/14/2024 at 14:05 Approved by: Romeo Pabon M.D. on 06/14/2024 at 14:05
--- NOTE | 2024-06-14 12:52 | VEIN_ITS ---
Patient Name: YUMIKO FERNANDEZ MR#: [id number] : 1935 Exam Date: 06/14/2024 Ordering Doctor: DR JONAS GOODWIN M.D. RADIOLOGY REPORT PROCEDURE: [facility] EST [facility] - OFFICE VISIT FOLLOW UP [facility] PROGRESS NOTES: The patient reports improvement in leg symptoms. There has been interval reduction in varicosities. The patient has followed our recommendations to walk 20-30 minutes once or twice per day since the procedure. Physical exam demonstrates decrease in varicosities of the leg. No significant varicosities in need of treatment remain. Review of the ultrasound performed the same day demonstrates occlusive thrombus extending throughout the treated vein(s), see separate report, consistent with a successful ablation. VEIN/[facility] EST TD IMPRESSION: 1. Successful ablation of the right leg treated cash teller vein(s). 2. No additional varicose veins and need of treatment at this time. PLAN: Follow-up in the future as needed. Nurse notes, history and physical were reviewed and confirmed, see attached forms. The nurse was present throughout the physical exam and consultation Dictated by: Romeo Pabon M.D. on 06/14/2024 at 14:05 Approved by: Romeo Pabon M.D. on 06/14/2024 at 14:12
[2024-06-14 13:18] VITALS: BMI 23.1
--- NOTE | 2024-06-14 13:46 | P.DS_ITS ---
Discharge Plan Discharge Disposition: Home, Self-Care Discharge Medications: No Action bumetanide 2 mg tablet 1 mg PO DAILY famotidine 20 mg tablet 20 mg PO DAILY warfarin [Jantoven] 2 mg tablet 1 mg PO QWEEK atorvastatin 20 mg tablet 20 mg PO DAILY metoprolol tartrate 50 mg tablet 25 mg PO DAILY potassium chloride [Klor-Con 10] 10 mEq tablet extended release 10 meq PO DAILY zolpidem [Ambien] 10 mg tablet clobetasol 0.05 % cream 1 applic topical DAILY sulfasalazine 500 mg tablet 0.5 g PO DAILY Rx Instructions: give with food (meal/snack) Plan of Treatment: Patient is finished with treatment at this time. Print Language: [place] Discharge Date/Time: 06/14/24 13:47
== END 2024-06-14 13:47 | disposition home or self-care (01) ==
LOC: VC 12:51
PROVIDERS: PCP Radiology Diagnostic Radiology; Visit Provider Radiology Diagnostic Radiology
DX: I80.01 Phlebitis and thrombophlebitis of superficial vessels of right lower extremity (principal)
CPT/HCPCS: 93971; G0463